=== PATIENT | female | born 1950 | race Caucasian/White ===

== ENCOUNTER 2020-12-15 | Outpatient (REF) | payer OTHER, SELFPAY | END 2020-12-15 00:01 | disposition home or self-care (01) | LOC: CF | PROVIDERS: Visit Provider Internal Medicine | DX: I25.5 Ischemic cardiomyopathy (principal); I25.10 Atherosclerotic heart disease of native coronary artery without angina pectoris; E11.8 Type 2 diabetes mellitus with unspecified complications; Z95.810 Presence of automatic (implantable) cardiac defibrillator; Z51.81 Encounter for therapeutic drug level monitoring; Z79.899 Other long term (current) drug therapy | CPT/HCPCS: 93005 ==

== ENCOUNTER → 2020-12-15 10:09 | Outpatient (BNVA) | payer OTHER, SELFPAY | PROVIDERS: PCP Hospitalist; Visit Provider Internal Medicine ==

== ENCOUNTER 2021-06-14 17:54 | Emergency (ER) | payer OTHER, SELFPAY ==
--- NOTE | 2021-06-14 | ECG_ITS ---
Test Reason : CHEST PAIN Blood Pressure : / mmHG Vent. Rate : 086 BPM Atrial Rate : 086 BPM P-R Int : 136 ms QRS Dur : 132 ms QT Int : 436 ms P-R-T Axes : 025 -62 097 degrees QTc Int : 521 ms Atrial-sensed ventricular-paced rhythm Abnormal ECG When compared with ECG of 12-MAR-2020 20:39, No significant change was found Referred By: Generic ED Physician Electronically Signed By:KIANA CANTRELL MD
--- NOTE | ~2021-06-14 | XR_ITS ---
EXAMINATION: XR CHEST CLINICAL INFORMATION: Chest pain COMPARISON: 03/12/2020 TECHNIQUE: Frontal view of the chest was obtained. FINDINGS: Heart size normal. No infiltrates, effusions or lung masses are seen. Again noted is a 3-lead left chest wall pacemaker with one lead in the atria, the other at the right ventricular apex and the third in the coronary sinus. XR/XR chest 1V IMPRESSION: No acute intrathoracic disease
[2021-06-14 18:10] VITALS: BP 110/60; BP 131/73; PULSE 84; PULSE 90; RESP 16; TEMP 37.1; O2SAT 99; BMI 33.3
--- NOTE | 2021-06-14 18:30 | ED.CHESTPAIN ---
HPI - Chest Pain General Chief Complaint: Chest Pain Stated Complaint: CHEST PAIN Time Seen by Provider: 06/14/21 18:30 Source: patient Mode of arrival: EMS Limitations: no limitations History of Present Illness HPI narrative: Patient history of ischemic cardiomyopathy, multivessel coronary disease seen in cardiac catheterization 2016, and paroxysmal AFib on Eliquis and diabetes mellitus in is status post ICD history of frequent chest pain almost every month comes from shelter for chest pain started today in the afternoon 1 PM received 5 doses of nitroglycerin with partial improvement patient feels the chest pain is squeezing digit to the back similar to that in the past lasting for 45 minutes to 1 hour. Patient looks comfortable otherwise has some cold sweats no nausea no vomiting no shortness of breath no palpitations pain is almost similar in character that but she gets almost every month. Patient also feels increased anxiety this time Related Data Home Medications Medication Instructions Recorded Confirmed lorazepam 0.5 mg tablet (Ativan) 0.5 mg PO BID PRN 08/27/20 12/15/20 melatonin 5 mg capsule mg PO 08/27/20 12/15/20 acetaminophen 650 mg 06/14/21 duloxetine 60 mg capsule,delayed 1 cap PO DAILY 06/14/21 06/14/21 release insulin glargine 80 unit SUBCUT BEDTIME 06/14/21 06/14/21 magnesium oxide 1 tab PO DAILY 06/14/21 06/14/21 pantoprazole 40 mg tablet,delayed 1 tab PO DAILY 06/14/21 06/14/21 release quetiapine 150 mg PO BEDTIME 06/14/21 06/14/21 Previous Rx's Medication Instructions Recorded blood-glucose meter #1 ea 11/04/20 pen needle, diabetic 32 gauge x #50 ea 11/10/204 (BD Ultra-Fine Micro Pen Needle) alcohol swabs (Alcohol Pads) 1 pad TOPICAL BID-TID #100 pad 03/03/21 lancets (Accu-Chek Softclix 1 ea TOPICAL BID PRN #100 ea 03/03/21 Lancets) pen needle, diabetic 32 gauge x 1 ea MISCELLANEOUS BID PRN #100 ea 03/03/21 14 (Comfort EZ Pen Pringle) atorvastatin 40 mg tablet 40 mg PO DAILY #30 tab 03/14/21 pantoprazole 20 mg tablet,delayed 20 mg PO DAILY #30 tab 03/21/21 release insulin glargine 100 unit/mL (3 80 unit SUBCUT DAILY #24 ml 04/13/21 mL) subcutaneous pen (Lantus Solostar U-100 Insulin) nitroglycerin 0.4 mg sublingual 0.4 mg SUBLINGUAL Q5M PRN 30 Days 05/05/21 tablet (Nitrostat) #10 tab clopidogrel 75 mg tablet 75 mg PO DAILY #30 tab 05/13/21 isosorbide dinitrate 30 mg tablet 60 mg PO BID #240 tab 05/13/21 magnesium oxide 400 mg (241.3 mg 400 mg PO DAILY #30 tab 05/13/21 magnesium) tablet metoprolol succinate 25 mg 12.5 mg PO DAILY #15 tab 05/13/21 tablet,extended release 24 hr torsemide 20 mg tablet 20 mg PO DAILY #30 tab 05/15/21 blood sugar diagnostic (Accu-Chek #100 ea 05/20/21 Danielle Plus test strp) apixaban 5 mg tablet (Eliquis) 5 mg PO BID 30 Days #60 tab 06/01/21 duloxetine 20 mg capsule,delayed 40 mg PO QAM #60 cap 06/01/21 release gabapentin 400 mg capsule 400 mg PO TID #90 cap 06/01/21 mirtazapine 15 mg disintegrating 15 mg PO BEDTIME 30 Days #30 tab 06/01/21 tablet quetiapine 100 mg tablet 300 mg PO BEDTIME #90 tab 06/01/21 Allergies Allergy/AdvReac Type Severity Reaction Status Date / Time Cephalosporins Allergy Intermediate RASH Verified 12/15/20 10:39 [CEPHALOSPORINS] oxycodone [From Tylox] Allergy Intermediate RASH Verified 12/15/20 10:39 Sulfa (Sulfonamide Allergy Intermediate RASH Verified 12/15/20 10:39 Antibiotics) [SULFA (SULFONAMIDE ANTIBIOTICS)] lisinopril AdvReac Severe contraindic Verified 12/15/20 10:39 ation naproxen [NAPROXEN] AdvReac Intermediate contraindic Verified 12/15/20 10:39 ation Review of Systems Review of Systems: Yes all other systems are reviewed and are negative PMFSH Past Medical History Medical History Atherosclerotic cardiovascular disease Cardiac resynchronization therapy defibrillator (ELEVATOR ATTENDANT-D) in place Type 2 diabetes mellitus with unspecified complications Surgical History History of appendectomy History of cardiac catheterization (~08/2015) History of cholecystectomy History of implantable cardioverter-defibrillator (ICD) placement (~02/09/17) History of tubal ligation History of umbilical hernia repair Family History Family History Father Myocardial infarction Mother Uterine cancer Lung cancer Maternal Aunt Uterine cancer Mouth cancer Social History Social History Smoked in Last 30 Days: No Use of substances other than those prescribed or required for medical reasons: No Advance Directives: No Advance Directives Information Provided: Yes Physical Exam Vital Signs: Vital Signs: Last Vital Signs Temp 98.4 F 06/14/21 21:56 Pulse 78 06/14/21 21:56 Resp 16 06/14/21 21:56 BP 150/75 H 06/14/21 21:56 Pulse Ox 98 06/14/21 21:56 Body Mass Index 33.3 Appearance: Alert. Oriented X3. No acute distress. Relaxed and comfortable Eyes: No pallor or icterus ENT: Pharynx normal. Oral Mucosa moist Neck: Normal inspection. Neck supple. CVS: Normal heart rate and rhythm. Pulses normal. Respiratory: No respiratory distress. Equal air entry bilateral, no wheezing/rales/rhonchi Abdomen: Soft and nontender. Bowel sounds are present, no mass palpable, Skin: Skin warm and dry. Normal skin color. Normal skin turgor. Extremities: No lower extremity edema. No calf tenderness Neuro: Oriented X 3. MDM - Chest Pain MDM Narrative Medical decision making narrative: Patient medical record from [facility] was reviewed was admitted there on 06/03 till 06/11 for chest pain with full workup was essentially negative echo showed 30-35% ejection fraction. Case discussed with cardiology Dr. Wilkinson advised to discharge patient back to shelter does not need any further evaluation delta troponin does not show any significant increase patient without any acute ischemic changes in the cardiogram with atypical pain reproducible and nonexertional Medical Records Data Attestation: I reviewed the patient's medical records. Lab Data Result diagrams: 06/14/21 20:18 06/14/21 20:18 Labs: Lab Results 06/14/21 06/14/21 06/14/21 Range/Units 20:02 20:18 20:18 WBC 19.6 H (4.8-10.8) X10*3/uL RBC 4.87 (4.20-5.50) X10*6/uL Hgb 14.5 (12.0-16.0) g/dl Hct 42.1 (37-47) % MCV 86.4 (80-98) fL MCH 29.8 (27.0-33.0) pg MCHC 34.4 (31.0-35.0) g/dl RDW 13.6 (11.0-16.0) % Plt Count 351 (160-400) X10*3/uL MPV 9.8 (9.4-12.3) fL Immature Gran % (Auto) 0.7 H (0.0-0.4) % Neut % (Auto) 69.0 (45-73) % Lymph % (Auto) 20.1 (20-40) % [facility] % (Auto) 8.5 (2-11) % Eos % (Auto) 1.3 (0-4) % Baso % (Auto) 0.4 (0-2) % Lymph # (Auto) 4.0 (1.2-4.9) X10*3/uL [facility] # (Auto) 1.7 H (0.1-1.2) X10*3/uL Eos # (Auto) 0.3 (0.0-0.4) X10*3/uL Baso # (Auto) 0.1 (0.0-0.2) X10*3/uL Abs Immat Gran (auto) 0.14 H (0.00-0.03) X10*3/uL Absolute Neuts (auto) 13.5 H (2.0-8.3) X10*3/uL Absolute Nucleated RBC 0.000 (0.0-0.012) X10*3/uL Nucleated RBC % (auto) 0.0 (0.0-0.2) /100WBC Smear Tech's Comments VERIFIED PT 20.6 H (9.9-13.0) SEC INR 1.8 H (0.9-1.1) Sodium (135-145) mmol/L Potassium (3.3-5.1) mmol/L Chloride (96-108) mmol/L Carbon Dioxide (22-29) mmol/L Anion Gap (12-20) BUN (9-16) mg/dL Creatinine (0.5-1.4) mg/dL Estim Creat Clear Calc Estimated GFR Random Glucose (60-115) mg/dL Calcium (8.4-10.2) mg/dL Troponin I High Sens (<3.5-17.0) ng/L B-Natriuretic Peptide (<100) pg/mL COVID-19 (LINA) Negative (Negative) COVID-19 Clin Com See Note 06/14/21 06/14/21 06/14/21 Range/Units 20:18 20:18 21:58 WBC (4.8-10.8) X10*3/uL RBC (4.20-5.50) X10*6/uL Hgb (12.0-16.0) g/dl Hct (37-47) % MCV (80-98) fL MCH (27.0-33.0) pg MCHC (31.0-35.0) g/dl RDW (11.0-16.0) % Plt Count (160-400) X10*3/uL MPV (9.4-12.3) fL Immature Gran % (Auto) (0.0-0.4) % Neut % (Auto) (45-73) % Lymph % (Auto) (20-40) % [facility] % (Auto) (2-11) % Eos % (Auto) (0-4) % Baso % (Auto) (0-2) % Lymph # (Auto) (1.2-4.9) X10*3/uL [facility] # (Auto) (0.1-1.2) X10*3/uL Eos # (Auto) (0.0-0.4) X10*3/uL Baso # (Auto) (0.0-0.2) X10*3/uL Abs Immat Gran (auto) (0.00-0.03) X10*3/uL Absolute Neuts (auto) (2.0-8.3) X10*3/uL Absolute Nucleated RBC (0.0-0.012) X10*3/uL Nucleated RBC % (auto) (0.0-0.2) /100WBC Smear Tech's Comments PT (9.9-13.0) SEC INR (0.9-1.1) Sodium 138 (135-145) mmol/L Potassium 3.4 (3.3-5.1) mmol/L Chloride 99 (96-108) mmol/L Carbon Dioxide 25 (22-29) mmol/L Anion Gap 17 (12-20) BUN 31 H (9-16) mg/dL Creatinine 1.33 (0.5-1.4) mg/dL Estim Creat Clear Calc 40.7 Estimated GFR 39 Random Glucose 104 (60-115) mg/dL Calcium 10.0 (8.4-10.2) mg/dL Troponin I High Sens 44.7 H* 42.4 H* (<3.5-17.0) ng/L B-Natriuretic Peptide 87 (<100) pg/mL COVID-19 (LINA) (Negative) COVID-19 Clin Com ECG Data ECG #1: Attestation: I personally reviewed and interpreted this ECG as follows: Interpretation: Atrial sensed ventricular paced rhythm heart rate 86 beats per minute no acute ST T wave changes no acute ischemia Discharge Plan Discharge Clinical Impression: Chest pain Qualifiers: Chest pain type: precordial pain Qualified Code(s): R07.2 - Precordial pain Patient Disposition: Xfer SNF Transfer Details: Atypical chest pain continue medication as before Instructions: Chest Pain (ED) Additional Instructions: Continue medication as before and follow with cardiology Prescriptions: No Action (DME) blood-glucose meter Kit See Rx Instructions .ROUTE .MEDSUPPLY Qty: 1 RF: 0 (DME) pen needle, diabetic [BD Ultra-Fine Micro Pen Needle] 32 gauge x 1/4 needle See Rx Instructions .ROUTE .MEDSUPPLY Qty: 50 RF: 0 alcohol swabs [Alcohol Pads] Pads, Medicated 1 pad topical BID-TID Qty: 100 RF: 3 pen needle, diabetic [Comfort EZ Pen Pringle] 32 gauge x 1/4 needle 1 ea miscellaneous BID PRN (Reason: dm) Qty: 100 RF: 3 lancets [Accu-Chek Softclix Lancets] Misc 1 ea topical BID PRN (Reason: for diabetes mellitus) Qty: 100 RF: 3 atorvastatin 40 mg tablet 40 mg PO DAILY Qty: 30 RF: 11 pantoprazole 20 mg tablet,delayed release (DR/EC) 20 mg PO DAILY Qty: 30 RF: 3 Lant Solostar U-100 Insulin 100 unit/mL (3 mL) insulin pen 80 unit subcut DAILY Qty: 24 RF: 2 nitroglycerin [Nitrostat] 0.4 mg tablet, sublingual 0.4 mg sublingual Q5M PRN (Reason: chest pain) 30 Days Qty: 10 RF: 1 isosorbide dinitrate 30 mg tablet 60 mg PO BID Qty: 240 RF: 5 magnesium oxide 400 mg (241.3 mg magnesium) tablet 400 mg PO DAILY Qty: 30 RF: 5 clopidogrel 75 mg tablet 75 mg PO DAILY Qty: 30 RF: 5 metoprolol succinate 25 mg tablet extended release 24 hr 12.5 mg PO DAILY Qty: 15 RF: 5 torsemide 20 mg tablet 20 mg PO DAILY Qty: 30 RF: 1 (DME) Accu-Chek Danielle Plus test strp Strip See Rx Instructions .Route Qty: 100 RF: 3 quetiapine 100 mg tablet 300 mg PO BEDTIME Qty: 90 RF: 3 duloxetine 20 mg capsule,delayed release(DR/EC) 40 mg PO QAM Qty: 60 RF: 2 Eliquis 5 mg tablet 5 mg PO BID 30 Days Qty: 60 RF: 3 mirtazapine 15 mg tablet,disintegrating 15 mg PO BEDTIME 30 Days Qty: 30 RF: 2 gabapentin 400 mg capsule 400 mg PO TID Qty: 90 RF: 6 acetaminophen 650 mg RF: 0 magnesium oxide 400 mg magnesium tablet 1 tab PO DAILY RF: 0 insulin glargine 80 unit subcut BEDTIME RF: 0 pantoprazole 40 mg tablet,delayed release (DR/EC) 1 tab PO DAILY RF: 0 duloxetine 60 mg capsule,delayed release(DR/EC) 1 cap PO DAILY RF: 0 quetiapine 150 mg PO BEDTIME RF: 0 lorazepam [Ativan] 0.5 mg tablet 0.5 mg PO BID PRNRF: 0 melatonin 5 mg capsule PO RF: 0
[2021-06-14] MEDS: Nitroglycerin 2 % Oint 1 GM Packet 1 INCH TRANSDERMA (19:47)
[2021-06-14 20:07] VITALS: BP 132/63; PULSE 83; RESP 14
[2021-06-14 20:26] LABS: Basophils Absolute Auto 0.1 X10*3/uL (0.0-0.2); Basophils Percent Auto 0.4 % (0-2); Eosinophils Absolute Auto 0.3 X10*3/uL (0.0-0.4); Eosinophils Percent Auto 1.3 % (0-4); Hematocrit 42.1 % (37-47); Hemoglobin 14.5 g/dl (12.0-16.0); Imm Gran Abs Auto 0.14 X10*3/uL (0.00-0.03); Imm Gran Pct Auto 0.7 % (0.0-0.4); Lymphocytes Percent Auto 20.1 % (20-40); MANUAL DIFF FLAG SCAN; Mean Corpuscular HGB Conc 34.4 g/dl (31.0-35.0); Mean Corpuscular Hemoglobin 29.8 pg (27.0-33.0); Mean Corpuscular Volume 86.4 fL (80-98); Mean Platelet Volume 9.8 fL (9.4-12.3); Monocytes Absolute Auto 1.7 X10*3/uL (0.1-1.2); Monocytes Percent Auto 8.5 % (2-11); Neutrophils Absolute Auto 13.5 X10*3/uL (2.0-8.3); Platelet Count 351 X10*3/uL (160-400); Red Blood Count 4.87 X10*6/uL (4.20-5.50); Red Cell Distribution Width 13.6 % (11.0-16.0); SCAN SMEAR FLAG 1; White Blood Count 19.6 X10*3/uL (4.8-10.8)
[2021-06-14 20:29] LABS: COVID-19 Test Negative (Negative)
[2021-06-14 20:31] LABS: INTERNATIONAL NORM RATIO 1.8 (0.9-1.1); Prothrombin Time 20.6 SEC (9.9-13.0)
[2021-06-14 20:42] LABS: Anion Gap 17 (12-20); Blood Urea Nitrogen 31 mg/dL (9-16); Carbon Dioxide 25 mmol/L (22-29); Chloride 99 mmol/L (96-108); Creatinine Clr Calc Pharmacy 40.7; Estimated Glomerular Filt Rate 39; Glucose Random 104 mg/dL (60-115); Potassium 3.4 mmol/L (3.3-5.1); Sodium 138 mmol/L (135-145)
[2021-06-14 20:51] LABS: SLIDE REVIEW VERIFIED
[2021-06-14 20:52] LABS: B Type Natriuretic Peptide 87 pg/mL (<100); Troponin-I High Sensitivity 44.7 ng/L (<3.5-17.0)
[2021-06-14] MEDS: ondansetron HCL 4 MG/2 ML VIAL IVPUSH (21:00)
--- NOTE | 2021-06-14 21:02 | PC.NURSE ---
PT A&O, NO SOB, BUT DOES REPORT SOME CHEST DISCOMFORT. NITRO PASTE ON AND MEDICATED PER OCT. 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 PT OOB TO BEDSIDE COMMODE WITH ASSIST. WILL CONTINUE TO MONITOR. CALL EL AT THE BEDSIDE.
[2021-06-14 21:56] VITALS: BP 150/75; PULSE 78; RESP 16; TEMP 36.9; O2SAT 98
[2021-06-14] MEDS: Morphine Sulfate 4 MG/ML CARTRIDGE IVPUSH (22:02)
[2021-06-14 22:38] LABS: Troponin-I High Sensitivity 42.4 ng/L (<3.5-17.0)
--- NOTE | 2021-06-14 23:11 | PC.NURSE ---
Several call to facility to update staff, no answer.
--- NOTE | 2021-06-14 23:20 | PC.NURSE ---
Pt is resting in bed no sign of distress at this time. plan is for pt to be discharge back to facility
[2021-06-15 00:28] VITALS: PULSE 78; RESP 12
== END 2021-06-15 00:39 | disposition skilled nursing facility (03) ==
PROVIDERS: Emergency Provider Internal Medicine; PCP Hospitalist
DX: R07.89 Other chest pain (principal); R06.02 Shortness of breath; Z20.822 Contact with and (suspected) exposure to COVID-19; Z79.899 Other long term (current) drug therapy; Z79.01 Long term (current) use of anticoagulants
CPT/HCPCS: 36415; 71045; 80048; 83880; 84484; 85025; 85610; 87635; 93005; 96374; 96375; 99284; 99285; J2270; J2405

== ENCOUNTER 2021-11-12 09:13 | Outpatient (REF) | payer OTHER, SELFPAY ==
[2021-11-12 11:20] LABS: Hematocrit 37.8 % (37.0-47.0); Hemoglobin 11.4 g/dl (12.0-16.0); Mean Corpuscular HGB Conc 30.2 g/dl (31.0-35.0); Mean Corpuscular Hemoglobin 26.9 pg (27.0-33.0); Mean Corpuscular Volume 89.2 fL (80.0-98.0); Mean Platelet Volume 11.3 fL (9.4-12.3); Platelet Count 193 X10*3/uL (160-400); Red Blood Count 4.24 X10*6/uL (4.20-5.50); Red Cell Distribution Width 15.9 % (11.0-16.0); White Blood Count 8.5 X10*3/uL (4.8-10.8)
[2021-11-12 11:51] LABS: Alanine Aminotransferase 10 U/L (0-31); Albumin Level 3.9 g/dL (3.5-5.0); Alkaline Phosphatase 144 U/L (39-117); Anion Gap 14 (12-20); Aspartate Amino Transferase 14 U/L (5-31); Bilirubin Total 0.4 mg/dL (0.0-1.0); Blood Urea Nitrogen 16 mg/dL (9-16); Calcium 9.8 mg/dL (8.4-10.2); Carbon Dioxide 27 mmol/L (22-29); Chloride 104 mmol/L (96-108); Cholesterol 198 mg/dL; Estimated Glomerular Filt Rate 46; Glucose Fasting 210 mg/dL (60-99); HDL Cholesterol 47 mg/dL; LDL Cholesterol Calculated 126 mg/dl; Potassium 4.3 mmol/L (3.3-5.1); Sodium 141 mmol/L (135-145); Total Protein 6.6 g/dL (6.5-8.0); Triglycerides 127 mg/dL
[2021-11-12 11:56] LABS: TSH reflex Free T4 0.94 uIU/mL (0.32-4.0)
== END 2021-11-12 09:14 | disposition home or self-care (01) ==
LOC: HO.WFDLDS 09:13
PROVIDERS: Visit Provider Hospitalist
DX: I25.10 Atherosclerotic heart disease of native coronary artery without angina pectoris (principal); E66.8 Other obesity; I25.5 Ischemic cardiomyopathy; I50.9 Heart failure, unspecified; E11.65 Type 2 diabetes mellitus with hyperglycemia
CPT/HCPCS: 36415; 80053; 80061; 84443; 85027

== ENCOUNTER 2023-03-23 14:58 | Outpatient (AMB) | payer OTHER, SELFPAY ==
--- NOTE | 2023-03-23 14:59 | A.OFFPC_ITS ---
Vital Signs 03/23/23 15:19 Height 5 ft 3 in Weight 200 lb BMI 35.4 BP 106/64 Blood Pressure Location Lt brachial Position Sitting Pulse 68 Pulse Source Pulse Oximeter Pulse Oximetry (%) 97 Intake Visit Reasons: [facility] 03/10/23 - Chest pain Intake Note: pt is here for ED f/u 03/10/23 for chest pain Resource Specialist Required: No Accompanied by: Unknown Allergies Cephalosporins [CEPHALOSPORINS] Allergy (Intermediate, Verified 03/23/23 15:19) RASH oxycodone [From Tylox] Allergy (Intermediate, Verified 03/23/23 15:19) RASH Sulfa (Sulfonamide Antibiotics) [SULFA (SULFONAMIDE ANTIBIOTICS)] Allergy (Intermediate, Verified 03/23/23 15:19) RASH lisinopril Adverse Reaction (Severe, Verified 03/23/23 15:19) contraindication naproxen [NAPROXEN] Adverse Reaction (Intermediate, Verified 03/23/23 15:19) contraindication Medication List - Last Reconciled 03/23/23 by Kaz Baum CNP acetaminophen 325 mg PO QID PRN apixaban (Eliquis) 5 mg PO BID atorvastatin 80 mg PO DAILY clopidogrel 75 mg PO DAILY duloxetine 40 mg (2 x 20 mg) PO QAM ferrous fumarate 325 mg PO DAILY furosemide (Lasix) 20 mg PO DAILY gabapentin 200 mg PO TID insulin glargine (Lantus Solostar U-100 Insulin) 20 units subcut DAILY melatonin 5 mg PO BEDTIME PRN metoprolol succinate ER 50 mg PO DAILY mirtazapine 15 mg PO BEDTIME mirtazapine 15 mg PO DAILY uuvioqns-azqn-LB-calcium-mins 9 mg iron-400 mcg (Thera-M) 1 tab PO DAILY nitroglycerin (Nitrostat) 0.4 mg sublingual Q5M PRN 1 month pantoprazole 40 mg PO DAILY quetiapine 300 mg (3 x 100 mg) PO BEDTIME sennosides-docusate sodium 8.6-50 mg (Senexon-S) 1 tab-cap PO BEDTIME valsartan 40 mg PO DAILY Tobacco use date assessed: 03/23/23 Fall risk assessment: 2 + Falls in past year Last assessed Fall Risk: 03/23/23 Dental Screening Dental Screen Date: 03/23/23 Did you have a dental visit in the last 12 months?: Yes Did you have a dental problem in the last 6 months where you did not have access to dental care?: No Was dental information given to patient?: Patient has dentist HPI HPI Comments History of Present Illness Details 72-year-old female, accompanied by [facility] STYLIST APPRENTICE/manager 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 She was evaluated and treated for chest pain at [facility] ED on 03/10/2023. She reports intermittent chest pain especially at night and with exertion. She states that the pain is usually localized to her sternum. She states she gets winded with climbing stairs. She also reports intermittent ringing of the left ear for the past 6 months. No ear pain or loss of hearing. She notes she takes nitro as prescribed. According to [facility] STYLIST APPRENTICE/manager product, the patient joined the facility following recent ED discharge. [facility] Medical History Atherosclerotic cardiovascular disease Cardiac resynchronization therapy defibrillator (DESTATICIZER FEEDER-D) in place Type 2 diabetes mellitus with unspecified complications Surgical History History of appendectomy History of cardiac catheterization (~08/2015) History of cholecystectomy History of implantable cardioverter-defibrillator (ICD) placement (~02/09/17) History of tubal ligation History of umbilical hernia repair Family History Father Myocardial infarction Mother Uterine cancer Lung cancer Maternal Aunt Uterine cancer Mouth cancer Social History Housing: House Patient Tobacco Use Status: Never used Tobacco e-Cigarette/Vaping Use: Never Used service: No Current occupational status: retired Current occupational exposures/hazards: No Cognitive needs: Yes Hearing needs: No Vision needs: Yes Questionnaire Thrive Questionnaire Date Thrive assessed: 03/09/22 DYLON-7 AMB Questionnaire DYLON-7 Date DYLON - 7 assessed: 03/09/22 Source: Developed by Drs. Wicho Tucker, Sana Mendoza, Ta Moctezuma and colleagues, with an educational thai from [employer]. Review of Systems Const Details: Const Denies chills, Denies fatigue, Denies fever(s), Denies headache(s) and Denies weakness ENT Reports as per HPI Card Denies chest pain, Denies lightheadedness, Denies dyspnea and Denies other (Palpitations) Resp Denies cough, Denies dyspnea, Denies wheezing and Denies other ( shortness of breath) GI Denies abdominal pain, Denies melena, Denies hematochezia, Denies change in bowel habits, Denies dyspepsia and Denies nausea Denies hematuria and Denies dysuria Musc Denies abnormal gait, Denies myalgias, Denies arthralgias, Denies numbness and Denies tingling Skin/Breast Denies rash, Denies unusual bruising and Denies wounds Neuro Denies abnormal gait, Denies dizziness, Denies headache(s), Denies memory loss, Denies numbness, Denies Sensory deficit (Neuro), Denies tingling and Denies weakness Psych Denies anxiety and Denies depression Endo Denies fatigue Aller/Immun Denies wheezing Physical exam (Primary Care) Vital Signs: Last Vital Signs Pulse 68 03/23/23 15:19 BP 106/64 03/23/23 15:19 Pulse Ox 97 03/23/23 15:19 BMI result Body Mass Index 35.4 Tobacco/Smoking Status: Tobacco use Status Tobacco use date assessed 03/23/23 03/23/23 15:01 Patient Tobacco Use Status Never used Tobacco 03/23/23 15:01 e-Cigarette/Vaping Use Never Used 03/23/23 15:01 Thrive Assessment: Date of Thrive Assessment Date Thrive assessed 03/09/22 03/23/23 15:01 Const Other: General: no acute distress and well developed Nutritional Appearance: well nourished Orientation/consciousness: patient oriented x3 HENMT Head is normocephalic Impacted cerumen left ear occluding the left TM, no signs of infection. Right ear canal and TM is normal. Nasal turbinates and oropharynx are pink and moist Sinuses are nontender with palpation No auricular or cervical lymphadenopathy Eyes General: appearance normal, both eyes and all related structures Pupils: Equal, round and reactive pupils present EOM: EOMs intact bilaterally Resp Effort & Inspection: normal respiratory effort Auscultation: clear to auscultation bilaterally Cardio Rate: regular rate Rhythm: regular rhythm Heart sounds: S1 normal heart sound present, S2 normal heart sound present, no gallops, no murmurs and no rubs GI Palpation (GI): No Abdominal aortic bruit present, Soft to palpation, nontender, No hepatosplenomegaly present and No Rebound tenderness present Auscultation: normal bowel sounds General: Yes no CVA tenderness Back/Spine/Pelvis Back: no CVA tenderness Cervical Spine: cervical ROM normal and No Cervical spine tenderness Thoracic/Lumbar Spine: thoraco-lumbar ROM normal, No pain with thoraco-lumbar ROM, No thoracic spinal tenderness and No lumbar spinal tenderness Extrem General: Yes normal to inspection, No edema and No calf tenderness Skin General: warm and dry. Normal skin color. Normal skin turgor Lesions: no lesions Rashes: no rashes Trauma: no lacerations or abrasions Wounds: no wounds Nails: normal Neuro General: patient oriented x3, gait normal and no focal neuro deficit Cranial nerves: Yes Equal, round and reactive pupils present Cognition (Neuro): normal cognition Gait exam (Neuro): Normal gait present Sensory Exam: No Sensory deficit (Neuro) Psych Affect: normal affect Assessment and Plan Assessment & Plan (1) Hospital discharge follow-up: Code(s): Z09 - Encounter for follow-up examination after completed treatment for co nditions other than malignant neoplasm Plan: She reports intermittent chest pain especially at night and with exertion. She states that the pain is usually localized to her sternum. She states she gets winded with climbing stairs. No acute symptoms at this time Take nitro as prescribed Continue to take all medications as prescribed Follow-up in 1 month for chronic health issues Return sooner with worsening or new symptoms Verbalized understanding and agreed with treatment plan. (2) Impacted cerumen, left ear: Code(s): H61.22 - Impacted cerumen, left ear Plan: She also reports intermittent ringing of the left ear for the past 6 months. No ear pain or loss of hearing. Impacted cerumen left ear occluding the left TM, no signs of infection Debrox ordered. Use as prescribed Follow-up with worsening or new symptoms Verbalized understanding and agreed with treatment plan. Medications: New carbamide peroxide 6.5% (Debrox) 5 drps otic (ear) left DAILY 4 days 15 mL 0RF Changed From atorvastatin 40 mg PO DAILY 30 tabs 11RF To atorvastatin 80 mg PO DAILY From metoprolol succinate ER 12.5 mg (1/2 x 25 mg) PO DAILY 15 tabs 0RF To metoprolol succinate ER 50 mg PO DAILY From pantoprazole 20 mg PO DAILY 30 tabs 0RF To pantoprazole 40 mg PO DAILY From insulin glargine (Lantus Solostar U-100 Insulin) 80 units (0.8 mL) subcut DAILY 24 mL 5RF E11.65 - Type 2 diabetes mellitus with hyperglycemia To insulin glargine (Lantus Solostar U-100 Insulin) 20 units subcut DAILY E11.65 - Type 2 diabetes mellitus with hyperglycemia Coding Level of Care Code Est Pt Level 3 (23711) Diagnoses Hospital discharge follow-up Z09 Impacted cerumen, left ear H61.22 Time Spent (min) 25
[2023-03-23 15:19] VITALS: BP 106/64; PULSE 68; O2SAT 97; BMI 35.4
== END 2023-03-23 15:43 | disposition home or self-care (01) ==
PROVIDERS: PCP Hospitalist; Visit Provider Nurse Practitioner Family
DX: Z09 Encounter for follow-up examination after completed treatment for conditions other than malignant neoplasm (principal); H61.22 Impacted cerumen, left ear
CPT/HCPCS: 99213

== ENCOUNTER 2023-05-10 15:27 | Outpatient (AMB) | payer OTHER, SELFPAY ==
[2023-05-10 15:26] VITALS: BP 126/64; PULSE 101; RESP 12; TEMP 36.6; O2SAT 99; BMI 34.8
--- NOTE | 2023-05-10 15:26 | MHC.PC.OV ---
Vital Signs 05/10/23 15:26 Height 5 ft 3 in Weight 196 lb 7 oz BMI 34.8 BP 126/64 Blood Pressure Location Rt brachial Position Sitting Respiration 12 Pulse 101 H Pulse Source Pulse Oximeter Temp 97.9 F Temp Source Temporal Artery Scan Pulse Oximetry (%) 99 Oxygen Delivery Method Room Air Intake [place] [facility] [place] chest pain and anemia Intake Note: Patient would like a new glucometer kit. Patient is also wondering about status of her seraquel. Community Midwife Required: No Accompanied by: Card Stripper Allergies Cephalosporins [CEPHALOSPORINS] Allergy (Intermediate, Verified 05/10/23 15:34) RASH oxycodone [From Tylox] Allergy (Intermediate, Verified 05/10/23 15:34) RASH Sulfa (Sulfonamide Antibiotics) [SULFA (SULFONAMIDE ANTIBIOTICS)] Allergy (Intermediate, Verified 05/10/23 15:34) RASH lisinopril Adverse Reaction (Severe, Verified 05/10/23 15:34) contraindication sulfamethoxazole [From Bactrim] Adverse Reaction (Severe, Verified 05/10/23 15:34) Rash trimethoprim [From Bactrim] Adverse Reaction (Severe, Verified 05/10/23 15:34) Rash naproxen [NAPROXEN] Adverse Reaction (Intermediate, Verified 05/10/23 15:34) contraindication Tobacco use date assessed: 03/23/23 Fall risk assessment: 2 + Falls in past year Last assessed Fall Risk: 05/10/23 Dental Screening Dental Screen Date: 05/10/23 Did you have a dental visit in the last 12 months?: No Did you have a dental problem in the last 6 months where you did not have access to dental care?: No Was dental information given to patient?: Yes HPI HPI Comments History of Present Illness Details 72-year-old female, accompanied by care home [employer]/supplier development manager, presents for a follow-up visit. She was admitted at [facility] between 04/12/2023 and 04/13/2023 for chest pain and symptomatic anemia, hematochezia s/p blood transfusion. Her hemoglobin was 5.8 s/p 2PRBC transfusions. Hemoglobin post transfusion was stable above 7g/dl. S/p colonoscopy on 04/14, is polyp 5 mm in the ascending colon (polypectomy). Polyp 4 mm in the sigmoid colon (polypectomy). Hypertrophied anal papillae in the anus, biopsy was done. Internal hemorrhoids. Colon otherwise normal to terminal ileum including retroflexion. Recommendations; patient without any blood colon, or terminal ileum. Patient's bleeding could have been hemorrhoidal. Resume anticoagulation, resume diet. If patient rebleeds, please contact GI for consideration of video capsule endoscopy. She was discharged with oral PPI, monitor H&H and transfuse if less than 7g/dl. Hemoglobin A1c was 6.8 %. During this hospitalization, patient also had an endoscopy done. Normal liver. The left kidney was normal. Multiseptated cyst (2.19 cm X to the pancreas, with 2 large cystic component. Dose to prominent cysts were aspirated; bloody thin fluid was aspirated until the cyst collapsed. Another small size 2 mm was noted in the body of the pancreas. Otherwise no abnormalities were noted in the pancreas. The PD appeared normal (0.9 mm in BOP). The CBD appeared dilated 9 mm likely due to cholecystectomy. She has significant her past medical history significant for hypertension, hyperlipidemia, type 2 diabetes, CKD 3, history of paroxysmal AFib, history of pulmonary embolism, CAD status post drug eluding-stents to the RCA (2005) with restenosis (2013), HFrEF with EF 20 to 30%, and anxiety. She notes that her chest pain and tinnitus have completely resolved. She offers no complaints and denies acute symptoms. She notes she has been on Quetiapine 300 mg for a the past 2 years; she requests a refill for this. She also requests a new glucometer order, she notes she lost her old glucometer when she relocated to the care home 2 months ago. [facility] Medical History Anemia Type 2 diabetes mellitus with unspecified complications Atherosclerotic cardiovascular disease Cardiac resynchronization therapy defibrillator (GEOCHEMIST-D) in place Surgical History History of colonoscopy H/O endoscopy History of implantable cardioverter-defibrillator (ICD) placement (~02/09/17) History of cardiac catheterization (~08/2015) History of umbilical hernia repair History of appendectomy History of cholecystectomy History of tubal ligation Family History Father Myocardial infarction Mother Uterine cancer Lung cancer Maternal Aunt Uterine cancer Mouth cancer Social History Housing: House Patient Tobacco Use Status: Never used Tobacco e-Cigarette/Vaping Use: Never Used service: No Current occupational status: retired Current occupational exposures/hazards: No Cognitive needs: Yes Hearing needs: No Vision needs: Yes Questionnaire Thrive Questionnaire Date Thrive assessed: 03/09/22 DYLON-7 AMB Questionnaire DYLON-7 Date DYLON - 7 assessed: 03/09/22 Source: Developed by Drs. Wicho Tucker, Sana Mendoza, Ta Moctezuma and colleagues, with an educational thai from [employer]. Review of Systems Const Details: Const Denies chills, Denies fatigue, Denies fever(s), Denies headache(s) and Denies weakness ENT Denies dizziness and Denies headache(s) Card Denies chest pain, Denies lightheadedness, Denies dyspnea and Denies other (Palpitations) Resp Denies cough, Denies dyspnea, Denies wheezing and Denies other ( shortness of breath) GI Denies abdominal pain, Denies melena, Denies hematochezia, Denies change in bowel habits, Denies dyspepsia and Denies nausea Denies hematuria and Denies dysuria Musc Denies abnormal gait, Denies myalgias, Denies arthralgias, Denies numbness and Denies tingling Skin/Breast Denies rash, Denies unusual bruising and Denies wounds Neuro Denies abnormal gait, Denies dizziness, Denies headache(s), Denies memory loss, Denies numbness, Denies Sensory deficit (Neuro), Denies tingling and Denies weakness Psych Denies anxiety, Denies depression, Denies memory loss Endo Denies cold intolerance, Denies fatigue, Denies heat intolerance, Denies polydipsia and Denies polyuria Aller/Immun Denies wheezing Physical exam (Primary Care) Vital Signs: Last Vital Signs Temp 97.9 F 05/10/23 15:26 Pulse 101 H 05/10/23 15:26 Resp 12 05/10/23 15:26 BP 126/64 05/10/23 15:26 Pulse Ox 99 05/10/23 15:26 Oxygen Delivery Method Room Air 05/10/23 15:26 BMI result Body Mass Index 34.8 Tobacco/Smoking Status: Tobacco use Status Tobacco use date assessed 03/23/23 05/10/23 15:37 Patient Tobacco Use Status Never used Tobacco 05/10/23 15:37 e-Cigarette/Vaping Use Never Used 05/10/23 15:37 Thrive Assessment: Date of Thrive Assessment Date Thrive assessed 03/09/22 05/10/23 15:37 Const Other: General: no acute distress and well developed Nutritional Appearance: well nourished Orientation/consciousness: patient oriented x3 HENMT Head: Yes normocephalic and Yes atraumatic Eyes General: appearance normal, both eyes and all related structures Pupils: Equal, round and reactive pupils present EOM: EOMs intact bilaterally Resp Effort & Inspection: normal respiratory effort Auscultation: clear to auscultation bilaterally Cardio Rate: regular rate Rhythm: regular rhythm Heart sounds: S1 normal heart sound present, S2 normal heart sound present, no gallops, no murmurs and no rubs GI Palpation (GI): No Abdominal aortic bruit present, Soft to palpation, nontender, No hepatosplenomegaly present and No Rebound tenderness present Auscultation: normal bowel sounds General: Yes no CVA tenderness Back/Spine/Pelvis Back: no CVA tenderness Cervical Spine: cervical ROM normal and No Cervical spine tenderness Thoracic/Lumbar Spine: thoraco-lumbar ROM normal, No pain with thoraco-lumbar ROM, No thoracic spinal tenderness and No lumbar spinal tenderness Extrem General: Yes normal to inspection, No edema and No calf tenderness Skin General: warm and dry. Normal skin color. Normal skin turgor Lesions: no lesions Rashes: no rashes Trauma: no lacerations or abrasions Wounds: no wounds Nails: normal Neuro General: patient oriented x3, gait normal and no focal neuro deficit Cranial nerves: Yes Equal, round and reactive pupils present Cognition (Neuro): normal cognition Gait exam (Neuro): Normal gait present Sensory Exam: No Sensory deficit (Neuro) Psych Appearance: grossly normal Affect: normal affect Attitude: cooperative Thought process: Normal thought process present Assessment and Plan Assessment & Plan (1) Hospital discharge follow-up: Code(s): Z09 - Encounter for follow-up examination after completed treatment for conditions other than malignant neoplasm Plan: Patient is currently stable. No acute symptoms at this time Seroquel refilled as requested New glucometer, strips, and lancets ordered. Advised to monitor blood glucose 3 times a day Advised to continue with current treatment regimen Follow-up with Dr. García in 1-2 months for chronic disease management Return sooner with symptoms or concerns such as fatigue or weakness so that labs can be ordered Verbalized understanding and agreed with treatment plan. Medications: New quetiapine 300 mg (3 x 100 mg) PO BEDTIME 90 days 270 tabs 0RF blood-glucose meter (FreeStyle Lite Meter kit) As directed 1 ea 0RF blood sugar diagnostic (FreeStyle Lite Strips) As directed TID 100 ea 4RF lancets (FreeStyle Lancets) As directed 100 ea 4RF Coding Level of Care Code Est Pt Level 3 (55615) Diagnoses Hospital discharge follow-up Z09
== END 2023-05-10 16:27 | disposition home or self-care (01) ==
PROVIDERS: PCP Hospitalist; Visit Provider Nurse Practitioner Family
DX: Z09 Encounter for follow-up examination after completed treatment for conditions other than malignant neoplasm (principal)
CPT/HCPCS: 99213

== ENCOUNTER 2023-05-26 11:04 | Outpatient (AMB) | payer OTHER, SELFPAY ==
[2023-05-26 11:12] VITALS: BP 120/74; PULSE 70; O2SAT 99; BMI 35.8
--- NOTE | 2023-05-26 11:12 | MHC.PC.OV ---
Vital Signs 05/26/23 11:12 Height 5 ft 3 in Weight 202 lb 3 oz BMI 35.8 BP 120/74 Blood Pressure Location Lt brachial Position Sitting Pulse 70 Pulse Source Pulse Oximeter Pulse Oximetry (%) 99 Oxygen Delivery Method Room Air Intake Visit Reasons: 05/17-05/19 [facility] High Blood Sugar Intake Note: Patient is here for follow up on high blood sugars. Allergies Cephalosporins [CEPHALOSPORINS] Allergy (Intermediate, Verified 05/26/23 11:14) RASH oxycodone [From Tylox] Allergy (Intermediate, Verified 05/26/23 11:14) RASH Sulfa (Sulfonamide Antibiotics) [SULFA (SULFONAMIDE ANTIBIOTICS)] Allergy (Intermediate, Verified 05/26/23 11:14) RASH lisinopril Adverse Reaction (Severe, Verified 05/26/23 11:14) contraindication sulfamethoxazole [From Bactrim] Adverse Reaction (Severe, Verified 05/26/23 11:14) Rash trimethoprim [From Bactrim] Adverse Reaction (Severe, Verified 05/26/23 11:14) Rash naproxen [NAPROXEN] Adverse Reaction (Intermediate, Verified 05/26/23 11:14) contraindication Medication List - Last Reconciled 05/26/23 by Monroe García MD acetaminophen 325 mg PO QID PRN apixaban (Eliquis) 5 mg PO BID 30 days atorvastatin 80 mg (2 x 40 mg) PO DAILY 30 days blood sugar diagnostic (FreeStyle Lite Strips) As directed TID blood-glucose meter (FreeStyle Lite Meter kit) As directed clopidogrel 75 mg PO DAILY 30 days duloxetine 40 mg (2 x 20 mg) PO QAM ferrous fumarate 325 mg PO DAILY 30 days fluconazole (Diflucan) 150 mg PO Q3D 2 doses furosemide (Lasix) 20 mg PO DAILY gabapentin 200 mg (2 x 100 mg) PO TID 30 days insulin glargine (Lantus Solostar U-100 Insulin) 35 units (0.35 mL) subcut DAILY 30 days insulin lispro (Humalog KwikPen (U-100) Insulin) 1 sliding scale dose subcut USEASDIRECTD 30 days lancets (FreeStyle Lancets) As directed melatonin 5 mg PO BEDTIME PRN 30 days metoprolol succinate ER 50 mg (2 x 25 mg) PO DAILY 30 days mirtazapine 15 mg PO BEDTIME 30 days dtksqyqq-acor-SE-calcium-mins 9 mg iron-400 mcg (Thera-M) 1 tab PO DAILY 30 days nitroglycerin (Nitrostat) 0.4 mg sublingual Q5M PRN 1 month pantoprazole 40 mg (2 x 20 mg) PO DAILY 30 days quetiapine 300 mg (3 x 100 mg) PO BEDTIME 90 days sennosides-docusate sodium 8.6-50 mg (Senexon-S) 1 tab-cap PO BEDTIME valsartan 40 mg PO DAILY 30 days Tobacco use date assessed: 03/23/23 Fall risk assessment: 2 + Falls in past year Last assessed Fall Risk: 05/26/23 Dental Screening Dental Screen Date: 05/26/23 Did you have a dental visit in the last 12 months?: No Did you have a dental problem in the last 6 months where you did not have access to dental care?: No Was dental information given to patient?: Yes HPI 05/17-05/19 [facility] High Blood Sugar HPI Details 72 y/o female presents to f/u [facility] visit 05/17-05/19 for high blood sugars. She had presented with chest pain, generalized weakness and hyperglycemia in the 400-600 range. Hx of CAD. Blood sugars had been elevated and had been given 10 units of subcutaneous lispro. A1c today 05/26/23 is 11.7%. She is on insulin glargine 20 units and was started on this 05/19/23. Pt reports insurance refuses to pay for lispro. She reports blood sugars at night was 545 and morning blood sugars were in the 340s. She has complaints of a yeast infection today. She reports she does have a Technology Teacher at [facility] - Dr. Wadsworth. She notes she has not met them yet. She reports intermittent sharp chest pain. 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 WORKER-D) in place Surgical History History of colonoscopy H/O endoscopy History of implantable cardioverter-defibrillator (ICD) placement (~06/21/17) History of cardiac catheterization (~08/2015) History of umbilical hernia repair History of appendectomy History of cholecystectomy History of tubal ligation Family History Father Myocardial infarction Mother Uterine cancer Lung cancer Maternal Aunt Uterine cancer Mouth cancer Social History Housing: House Patient Tobacco Use Status: Never used Tobacco e-Cigarette/Vaping Use: Never Used service: No Current occupational status: retired Current occupational exposures/hazards: No Cognitive needs: Yes Hearing needs: No Vision needs: Yes Questionnaire Thrive Questionnaire Date Thrive assessed: 03/09/22 DYLON-7 AMB Questionnaire DYLON-7 Date DYLON - 7 assessed: 03/09/22 Source: Developed by Drs. Wicho Tucker, Sana Mendoza, Ta Moctezuma and colleagues, with an educational thai from [employer]. Review of Systems Const Denies chills, Denies fatigue, Denies fever(s), Denies headache(s) and Denies weakness ENT Denies dizziness and Denies headache(s) Card Denies dyspnea Resp Denies cough, Denies dyspnea, Denies wheezing and Denies other (shortness of breath) Musc Denies numbness and Denies tingling Neuro Denies dizziness, Denies headache(s), Denies numbness, Denies tingling and Denies weakness Psych Denies anxiety and Denies depression Endo Denies fatigue Aller/Immun Denies wheezing Physical exam (Primary Care) Vital Signs: Last Vital Signs Pulse 70 05/26/23 11:12 BP 120/74 05/26/23 11:12 Pulse Ox 99 05/26/23 11:12 Oxygen Delivery Method Room Air 05/26/23 11:12 BMI result Body Mass Index 35.8 Tobacco/Smoking Status: Tobacco use Status Tobacco use date assessed 03/23/23 05/26/23 11:21 Patient Tobacco Use Status Never used Tobacco 05/26/23 11:21 e-Cigarette/Vaping Use Never Used 05/26/23 11:21 Thrive Assessment: Date of Thrive Assessment Date Thrive assessed 03/09/22 05/26/23 11:21 Const General: well developed; No acute distress Nutritional Appearance: well nourished Orientation/consciousness: patient oriented x3 HENMT Head: Yes normocephalic and Yes atraumatic Eyes General: appearance normal, both eyes and all related structures Pupils: Equal, round and reactive pupils present EOM: EOMs intact bilaterally Resp Effort & Inspection: normal respiratory effort Auscultation: clear to auscultation bilaterally Cardio Rate: regular rate Rhythm: regular rhythm Heart sounds: S1 normal heart sound present, S2 normal heart sound present, no gallops, no murmurs and no rubs Neuro General: patient oriented x3 and gait normal Cranial nerves: Yes Equal, round and reactive pupils present Psych Affect: normal affect Results AMB Hemoglobin A1c AMB Hemoglobin A1c 11.7 % Last Edit by Kenyatta Hooks CMA on 05/26/23 11:31 Results Reviewed Results Reviewed: Laboratory Last Values Hgb A1c (Clinic) 11.7 % (4.0-6.0) H 05/26/23 11:30 Assessment and Plan Assessment & Plan (1) Diabetes type 2, uncontrolled: Code(s): E11.65 - Type 2 diabetes mellitus with hyperglycemia Plan: A1c?today?11.7%. She?is?on?Lantus?30?units?daily?and?was?started?on?lispro?in?the?hospital?on?05/19/2023 but?insurance?declined?this?and?says?they?will?pay?for?Humalog?sliding?scale. Morning?blood?sugars?are?still?far?from?goal.??Will?increase?Lantus?from?30?units?to?35?units?daily. Will?add?Humalog?as?sliding?scale She?has?an?upcoming?appointment?on?the??of?May. (2) Atherosclerotic cardiovascular disease: Code(s): I25.10 - Atherosclerotic heart disease of [place] coronary artery without angina pectoris Plan: Coronary?artery?disease?and?has?been?referred?to?[facility]?with?an?upcoming?appointment. Gets?some?sharp?upper?left?chest?pains?but?no persistent?chest?pain.??I?advised?her?if?she?is?getting?persistent?chest?pain?that?does?not?go?away?with?relaxation.??She?should?go?to?the?ED?and?she?understands. Follow-up?with?Cardiology?as?recommended (3) Chest pain: Code(s): R07.9 - Chest pain, unspecified Qualifiers: Chest pain type: precordial pain Qualified Code(s): R07.2 - Precordial pain Plan: As?above (4) Yeast infection: Code(s): B37.9 - Candidiasis, unspecified Plan: Give?her?a?script?for?Diflucan Yeast?infections?will?likely?resolve?and?become?less?frequent?with?better?blood?sugar?control. (5) GI bleeding: Code(s): K92.2 - Gastrointestinal hemorrhage, unspecified Plan: Recent?history?GI?bleeding?and?required?transfusion Checking?CBC. She?denies?any?shortness?of?breath.??No?tachycardia Orders: Orders Comprehensive Met. Panel Today E11.65 - Type 2 diabetes mellitus with hyperglycemia AMB Hemoglobin A1c Today Z13.9 - Encounter for screening, unspecified Complete Blood Count Auto Diff Today Z00.00 - Encounter for general adult medical examination without abnormal findings Medications: New insulin lispro (Humalog KwikPen (U-100) Insulin) 151-200 Give 2 units 201-250 Give 4 units 251-300 Give 6 units 301-350 Give 8 units 351-400 Give 10 units 401-450 Give 12 units > 450 Give 12 units & call MD 1 sliding scale dose subcut USEASDIRECTD 30 days 15 mL 3RF fluconazole (Diflucan) 150 mg PO Q3D 2 tabs 0RF Changed From insulin glargine (Lantus Solostar U-100 Insulin) 20 units (0.2 mL) subcut DAILY 30 days 6 mL 3RF To insulin glargine (Lantus Solostar U-100 Insulin) 35 units (0.35 mL) subcut DAILY 30 days 12 mL 3RF Coding Level of Care Code Est Pt Level 4 (01477) Diagnoses Diabetes type 2, uncontrolled E11.65 Atherosclerotic cardiovascular disease I25.10 Chest pain R07.2 Chest pain type: precordial pain Yeast infection B37.9 GI bleeding K92.2
== END 2023-05-26 11:56 | disposition home or self-care (01) ==
PROVIDERS: PCP Family Medicine; Visit Provider Family Medicine
DX: E11.65 Type 2 diabetes mellitus with hyperglycemia (principal); I25.10 Atherosclerotic heart disease of native coronary artery without angina pectoris; R07.2 Precordial pain; B37.9 Candidiasis, unspecified; K92.2 Gastrointestinal hemorrhage, unspecified
CPT/HCPCS: 83036; 99214

== ENCOUNTER 2023-05-26 12:01 | Outpatient (REF) | payer OTHER, SELFPAY ==
[2023-05-26 14:25] LABS: MANUAL DIFF FLAG NO
[2023-05-26 14:37] LABS: Basophils Absolute Auto 0.1 X10*3/uL (0.0-0.2); Basophils Percent Auto 0.8 % (0-2); Eosinophils Absolute Auto 0.4 X10*3/uL (0.0-0.4); Eosinophils Percent Auto 4.4 % (0-4); Hematocrit 36.8 % (37.0-47.0); Hemoglobin 11.4 g/dl (12.0-16.0); Imm Gran Abs Auto 0.06 X10*3/uL (0.00-0.03); Imm Gran Pct Auto 0.8 % (0.0-0.4); Lymphocytes Absolute Auto 1.7 X10*3/uL (1.2-4.9); Mean Corpuscular Hemoglobin 26.9 pg (27.0-33.0); Mean Corpuscular Volume 86.8 fL (80.0-98.0); Mean Platelet Volume 11.2 fL (9.4-12.3); Monocytes Absolute Auto 0.6 X10*3/uL (0.1-1.2); Monocytes Percent Auto 7.6 % (2-11); Neutrophils Absolute Auto 5.1 x10*3/uL (2.0-8.3); Neutrophils Percent Auto 64.4 % (45-73); Platelet Count 183 X10*3/uL (160-400); Red Blood Count 4.24 X10*6/uL (4.20-5.50); Red Cell Distribution Width 19.4 % (11.0-16.0); White Blood Count 7.9 X10*3/uL (4.8-10.8)
[2023-05-26 15:18] LABS: Anion Gap 19 (12-20); Carbon Dioxide 21 mmol/L (22-29); Chloride 99 mmol/L (96-108); Potassium 4.8 mmol/L (3.3-5.1); Sodium 134 mmol/L (135-145)
[2023-05-26 15:19] LABS: Alanine Aminotransferase 16 U/L (0-31); Albumin Level 3.9 g/dL (3.5-5.0); Alkaline Phosphatase 115 U/L (39-117); Aspartate Amino Transferase 16 U/L (5-31); Bilirubin Total 0.3 mg/dL (0.0-1.0); Blood Urea Nitrogen 19 mg/dL (9-16); Calcium 9.8 mg/dL (8.4-10.2); Estimated Glomerular Filt Rate 51; Total Protein 6.6 g/dL (6.5-8.0)
[2023-05-26 16:35] LABS: Glucose Random 518 mg/dL (60-115)
== END 2023-05-26 12:02 | disposition home or self-care (01) ==
LOC: HO.WFDLDS 12:01
PROVIDERS: Visit Provider Family Medicine
DX: Z00.00 Encounter for general adult medical examination without abnormal findings (principal); E11.65 Type 2 diabetes mellitus with hyperglycemia
CPT/HCPCS: 36415; 80053; 85025

== ENCOUNTER 2023-06-16 12:43 | Outpatient (AMB) | payer OTHER, SELFPAY ==
--- NOTE | 2023-06-16 12:48 | MHC.PC.OV ---
Vital Signs 06/16/23 12:49 Height 5 ft 3 in Weight 209 lb 3 oz BMI 37.1 BP 124/60 Blood Pressure Location Lt brachial Position Sitting Respiration 13 Pulse 103 H Pulse Source Pulse Oximeter Temp 97.5 F Temp Source Temporal Artery Scan Pulse Oximetry (%) 99 Oxygen Delivery Method Room Air Intake Visit Reasons: Transfer of Care - f/u chronic conditions Intake Note: Patient states that her ankles are very swollen and feel tight. Patient needs a refill on her duloxetine. ANd patient would like script for novolog flex pen resent over patient states she never received it. Patient also need refills for her insulin needles as well. 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 Required: No Accompanied by: Self / Same As Patient Allergies Cephalosporins [CEPHALOSPORINS] Allergy (Intermediate, Verified 06/16/23 12:54) RASH oxycodone [From Tylox] Allergy (Intermediate, Verified 06/16/23 12:54) RASH Sulfa (Sulfonamide Antibiotics) [SULFA (SULFONAMIDE ANTIBIOTICS)] Allergy (Intermediate, Verified 06/16/23 12:54) RASH lisinopril Adverse Reaction (Severe, Verified 06/16/23 12:54) contraindication sulfamethoxazole [From Bactrim] Adverse Reaction (Severe, Verified 06/16/23 12:54) Rash trimethoprim [From Bactrim] Adverse Reaction (Severe, Verified 06/16/23 12:54) Rash naproxen [NAPROXEN] Adverse Reaction (Intermediate, Verified 06/16/23 12:54) contraindication Tobacco use date assessed: 03/23/23 Fall risk assessment: 2 + Falls in past year Last assessed Fall Risk: 06/16/23 Dental Screening Dental Screen Date: 06/16/23 Did you have a dental visit in the last 12 months?: Yes Did you have a dental problem in the last 6 months where you did not have access to dental care?: No Was dental information given to patient?: Patient has dentist HPI Transfer of Care - f/u chronic conditions HPI Details Transfer of Care Prior PCP:? SV Last office visit/CPE: Acute issue(s): Diabetes -Is on 36 units of her lantus. Her lowest morning blood sugar is 162. Swollen ankles PMHx: Hypertension, Bipolar 1 disorder, CAD, Diabetes SurgHx: FHx: SocHx: PFSH Medical History Anemia Type 2 diabetes mellitus with unspecified complications Atherosclerotic cardiovascular disease Cardiac resynchronization therapy defibrillator ([employer]ED [employer]ICE PROFESSIONAL-D) in place Surgical History History of colonoscopy H/O endoscopy History of implantable cardioverter-defibrillator (ICD) placement (~02/09/17) History of cardiac catheterization (~08/2015) History of umbilical hernia repair History of appendectomy History of cholecystectomy History of tubal ligation Family History Father Myocardial infarction Mother Uterine cancer Lung cancer Maternal Aunt Uterine cancer Mouth cancer Social History Housing: House Patient Tobacco Use Status: Never used Tobacco e-Cigarette/Vaping Use: Never Used service: No Current occupational status: retired Current occupational exposures/hazards: No Cognitive needs: Yes Hearing needs: No Vision needs: Yes Questionnaire Thrive Questionnaire Date Thrive assessed: 03/09/22 DYLON-7 AMB Questionnaire DYLON-7 Date DYOLN - 7 assessed: 03/09/22 Source: Developed by Drs. Wicho Tucker, Sana Mendoza, Ta Moctezuma and colleagues, with an educational thai from [employer]. Review of Systems Const Denies chills, Denies fatigue, Denies fever(s), Denies headache(s) and Denies weakness ENT Denies dizziness and Denies headache(s) Card Denies chest pain, Denies lightheadedness, Denies dyspnea and Denies other (Palpitations) Resp Denies cough, Denies dyspnea, Denies wheezing and Denies other ( shortness of breath) Musc Denies numbness and Denies tingling Neuro Denies dizziness, Denies headache(s), Denies numbness, Denies tingling, Denies paresthesias and Denies weakness Psych Denies anxiety and Denies depression Endo Denies fatigue Aller/Immun Denies wheezing Physical exam (Primary Care) Vital Signs: Last Vital Signs Temp 97.5 F 06/16/23 12:49 Pulse 103 H 06/16/23 12:49 Resp 13 06/16/23 12:49 BP 124/60 06/16/23 12:49 Pulse Ox 99 06/16/23 12:49 Oxygen Delivery Method Room Air 06/16/23 12:49 BMI result Body Mass Index 37.1 Tobacco/Smoking Status: Tobacco use Status Tobacco use date assessed 03/23/23 06/16/23 12:59 Patient Tobacco Use Status Never used Tobacco 06/16/23 12:59 e-Cigarette/Vaping Use Never Used 06/16/23 12:59 Thrive Assessment: Date of Thrive Assessment Date Thrive assessed 03/09/22 06/16/23 12:59 Const General: no acute distress and well developed Nutritional Appearance: well nourished Orientation/consciousness: patient oriented x3 HENMT Head: Yes normocephalic and Yes atraumatic Eyes General: appearance normal, both eyes and all related structures Pupils: Equal, round and reactive pupils present EOM: EOMs intact bilaterally Resp Effort & Inspection: normal respiratory effort Auscultation: clear to auscultation bilaterally Cardio Rate: regular rate Rhythm: regular rhythm Heart sounds: S1 normal heart sound present, S2 normal heart sound present, no gallops, no murmurs and no rubs Neuro General: patient oriented x3 and gait normal Cranial nerves: Yes Equal, round and reactive pupils present Extrem Other: 1+ bilateral lower extremity edema Psych Affect: normal affect Assessment and Plan Assessment & Plan (1) Type 2 diabetes mellitus with unspecified complications: Code(s): E11.8 - Type 2 diabetes mellitus with unspecified complications Plan: Blood?sugars?are?improving?but?still?rather?high. Morning?blood?sugars?no?lower?than?160s Increase?basal?insulin?from?36?units?daily?to?40?units?daily She?has?not?been?able?to?get?her?NovoLog?but?had?paid?out?of?pocket?for?lispro. Recent?script?for?NovoLog?flex?pen?and?sent?script?for?pen?needles. (2) Swelling of lower extremity: Code(s): M79.89 - Other specified soft tissue disorders Plan: 1+?bilateral?lower?extremity?edema?in?a?patient?with?CHF Check?labs?including?BNP She?is?taking?furosemide?20?mg?daily?and?I?have?given?her?a?script?for?an?additional?20?mg?daily?for?5?days;?total?daily?dose?40?mg?daily?x5?days?then?resume?20?mg?daily. (3) Tinnitus: Code(s): H93.19 - Tinnitus, unspecified ear Plan: Hydrate?well Continue?to?work?at?blood?sugar?control If?not?improving?will?refer (4) Atherosclerotic cardiovascular disease: Code(s): I25.10 - Atherosclerotic heart disease of [place] coronary artery without angina pectoris Plan: Stable (5) Hypertension, essential: Code(s): I10 - Essential (primary) hypertension Plan: Blood?pressure?is?controlled.??Goal?is?less?than?130/80 Continue?current?medication?regimen (6) Bipolar 1 disorder: Code(s): F31.9 - Bipolar disorder, unspecified Plan: Stable Medications: New pen needle, diabetic (BD Ultra-Fine Micro Pen Needle) To treat BS 4 times a day, As directed, 90 days 400 ea 3RF furosemide (Lasix) Total?daily?dose?40?mg x5 days 20 mg PO DAILY 5 days 5 tabs 0RF Changed From insulin glargine (Lantus Solostar U-100 Insulin) 35 units (0.35 mL) subcut DAILY 30 days 12 mL 3RF To insulin glargine (Lantus Solostar U-100 Insulin) 40 units (0.4 mL) subcut DAILY 30 days 12 mL 3RF Refilled insulin aspart U-100 (Novolog FlexPen U-100 Insulin aspart) 151-200 Give 2 units 201-250 Give 4 units 251-300 Give 6 units 301-350 Give 8 units 351-400 Give 10 units 401-450 Give 12 units > 450 Give 12 units & call MD 1 sliding scale dose subcut USEASDIRECTD 30 days 15 mL 3RF duloxetine 40 mg (2 x 20 mg) PO QAM 60 caps 4RF Coding Level of Care Code Est Pt Level 4 (20191) Diagnoses Type 2 diabetes mellitus with unspecified complications E11.8 Swelling of lower extremity M79.89 Tinnitus H93.19 Atherosclerotic cardiovascular disease I25.10 Hypertension, essential I10 Bipolar 1 disorder F31.9
[2023-06-16 12:49] VITALS: BP 124/60; PULSE 103; RESP 13; TEMP 36.4; O2SAT 99; BMI 37.1
== END 2023-06-16 13:31 | disposition home or self-care (01) ==
PROVIDERS: PCP Family Medicine; Visit Provider Family Medicine
DX: E11.8 Type 2 diabetes mellitus with unspecified complications (principal); F31.9 Bipolar disorder, unspecified; M79.89 Other specified soft tissue disorders; I25.10 Atherosclerotic heart disease of native coronary artery without angina pectoris; I10 Essential (primary) hypertension; H93.19 Tinnitus, unspecified ear
CPT/HCPCS: 99214

== ENCOUNTER 2023-07-19 14:14 | Outpatient (AMB) | payer OTHER, SELFPAY ==
--- NOTE | 2023-07-19 14:18 | A.OFFPC_ITS ---
Vital Signs 07/19/23 14:19 Height 5 ft 3 in Weight 203 lb 8 oz BMI 36.0 BP 128/65 Blood Pressure Location Lt brachial Position Sitting Pulse 81 Pulse Source Pulse Oximeter Pulse Oximetry (%) 98 Oxygen Delivery Method Room Air Intake Visit Reasons: f/u chronic conditions Intake Note: Patient is here for follow up on chronic conditions. Patient is requesting flu shot today, also. Patient also would like to get something for vaginal yeast infection. Allergies Cephalosporins [CEPHALOSPORINS] Allergy (Intermediate, Verified 07/19/23 14:24) RASH oxycodone [From Tylox] Allergy (Intermediate, Verified 07/19/23 14:24) RASH Sulfa (Sulfonamide Antibiotics) [SULFA (SULFONAMIDE ANTIBIOTICS)] Allergy (Intermediate, Verified 07/19/23 14:24) RASH lisinopril Adverse Reaction (Severe, Verified 07/19/23 14:24) contraindication sulfamethoxazole [From Bactrim] Adverse Reaction (Severe, Verified 07/19/23 14:24) Rash trimethoprim [From Bactrim] Adverse Reaction (Severe, Verified 07/19/23 14:24) Rash naproxen [NAPROXEN] Adverse Reaction (Intermediate, Verified 07/19/23 14:24) contraindication Tobacco use date assessed: 07/19/23 Fall risk assessment: 2 + Falls in past year Last assessed Fall Risk: 07/19/23 HPI f/u chronic conditions HPI Details 72 y/o female presents to f/u chronic co nditions such as diabetes and CHF. Had increased Lantus last office visit from 36 units to 40 units daily. Morning blood sugars have been in the 160s-200s. Lowest she has recorded was 127. Had recently been to ED 06/22/23 for chest pain. Workup did not reveal any evidence of acute heart injury or heart failure. Pt reports shaking with her L hand. She denies any pain or numbness associated with this. She denies any pain on her neck or shoulder. Pt reports ongoing ringing in her ears. HPI Comments History of Present Illness Details Documentation assistance for Monroe García MD, was provided by Jose Wilkins,? Audiology Director on 07/19/2023 2:53 PM EST. I, Dr. García, have read, observed, and verified documentation. [facility] Medical History Anemia Type 2 diabetes mellitus with unspecified complications Atherosclerotic cardiovascular disease Cardiac resynchronization therapy defibrillator (RUG DYER-D) in place Surgical History History of colonoscopy H/O endoscopy History of implantable cardioverter-defibrillator (ICD) placement (~02/09/17) History of cardiac catheterization (~08/2015) History of umbilical hernia repair History of appendectomy History of cholecystectomy History of tubal ligation Family History Father Myocardial infarction Mother Uterine cancer Lung cancer Maternal Aunt Uterine cancer Mouth cancer Social History Housing: House Patient Tobacco Use Status: Never used Tobacco e-Cigarette/Vaping Use: Never Used service: No Current occupational status: retired Current occupational exposures/hazards: No Cognitive needs: Yes Hearing needs: No Vision needs: Yes Questionnaire PHQ-9 Over the last 2 weeks, how often have you been bothered by any of the following problems? 1. Little interest or pleasure in doing things: several days 2. Feeling down, depressed, or hopeless: several days 3. Trouble falling or staying asleep, or sleeping too much: several days 4. Feeling tired or having little energy: not at all 5. Poor appetite or overeating: not at all 6. Feeling bad about yourself - or that you are a failure or have let yourself or your family down: not at all 7. Trouble concentrating on things, such as reading the newspaper or watching television: several days 8. Moving or speaking so slowly that other people could have noticed. Or the opposite - being so fidgety or restless that you have been moving around a lot more than usual: not at all 9. Thoughts that you would be better off or of hurting yourself in some way: not at all Total score: 4 Source: Developed by Drs. Wicho Tucker, Sana Mendoza, Ta Moctezuma and colleagues, with an educational thai from [employer]. Thrive Questionnaire Date Thrive assessed: 03/09/22 AUDIT C Alcohol Use Questionnaire (AUDIT-C) 1. How often do you have a drink containing alcohol?: Never 3. How often do you have six or more drinks on one occasion?: Never Total Score: 0 DYLON-7 AMB Questionnaire DYLON-7 Date DYLON - 7 assessed: 07/19/23 Feeling nervous, anxious, or on edge: 1 = Several days Not being able to stop or control worryin = Several days Worrying too much about different things: 1 = Several days Trouble relaxin = Several days Being so restless that it is hard to sit still: 1 = Several days Becoming easily annoyed or irritable: 1 = Several days Feeling afraid as if something awful might happen: 0 = Not at all Total DYLON-7 score (0-4 normal; 5-9 mild; 10-14 moderate; 15-21 severe): 6 Source: Developed by Drs. Wicho Tucker, Sana Mendoza, Ta Moctezuma and colleagues, with an educational thai from [employer]. Review of Systems Const Denies chills, Denies fatigue, Denies fever(s), Denies headache(s) and Denies weakness ENT Denies dizziness and Denies headache(s) Card Denies chest pain, Denies lightheadedness, Denies dyspnea and Denies other (Palpitations) Resp Denies cough, Denies dyspnea, Denies wheezing and Denies other ( shortness of breath) Musc Denies numbness and Denies tingling Neuro Denies dizziness, Denies headache(s), Denies numbness, Denies tingling, Denies paresthesias and Denies weakness Psych Denies anxiety and Denies depression Endo Denies fatigue Aller/Immun Denies wheezing Physical exam (Primary Care) Vital Signs: Last Vital Signs Pulse 81 07/19/23 14:19 BP 128/65 07/19/23 14:19 Pulse Ox 98 07/19/23 14:19 Oxygen Delivery Method Room Air 07/19/23 14:19 BMI result Body Mass Index 36.0 Tobacco/Smoking Status: Tobacco use Status Tobacco use date assessed 07/19/23 07/19/23 14:25 Patient Tobacco Use Status Never used Tobacco 07/19/23 14:25 e-Cigarette/Vaping Use Never Used 07/19/23 14:25 PHQ-9: PHQ-9 Score PHQ-9: Total score 4 07/19/23 14:40 Thrive Assessment: Date of Thrive Assessment Date Thrive assessed 03/09/22 07/19/23 14:25 Const General: no acute distress and well developed Nutritional Appearance: well nourished Orientation/consciousness: patient oriented x3 HENMT Head: Yes normocephalic and Yes atraumatic Eyes General: appearance normal, both eyes and all related structures Pupils: Equal, round and reactive pupils present EOM: EOMs intact bilaterally Resp Effort & Inspection: normal respiratory effort Auscultation: clear to auscultation bilaterally Cardio Rate: regular rate Rhythm: regular rhythm Heart sounds: S1 normal heart sound present, S2 normal heart sound present, no gallops, no murmurs and no rubs Neuro General: patient oriented x3 and gait normal Cranial nerves: Yes Equal, round and reactive pupils present Psych Affect: normal affect Assessment and Plan Assessment & Plan (1) Chest pain: Code(s): R07.9 - Chest pain, unspecified Qualifiers: Chest pain type: precordial pain Qualified Code(s): R07.2 - Precordial pain Plan: Recent ED visit for CP. Neg w/u for ACS and PE (2) Yeast infection: Code(s): B37.9 - Candidiasis, unspecified Plan: Will send diflucan Advised better BS control - see below (3) Type 2 diabetes mellitus with unspecified complications: Code(s): E11.8 - Type 2 diabetes mellitus with unspecified complications Plan: Had increased Lantus at last OV. Was having difficulty getting NovoLog for prandial insulin. Now, has?Lantus?and?her?NovoLog Taking?as?prescribed.??She?notes?that?blood?sugars?are?running?from?around?127- 167?in?the?mornings. She?will?increase?Lantus?from?40?units?daily?to?44?units?daily?and?continue?her? NovoLog?sliding?scale (4) Tremor of left hand: Code(s): R25.1 - Tremor, unspecified Plan: New?tremor?at?left?hand.??No?pain Referred?to?neurology (5) Immunization counseling: Code(s): Z71.85 - Encounter for immunization safety counseling Plan: Advised?high-dose?flu?shot?but?patient?says?she?would?rather?get?1?here Will?give?regular?dose?flu?shot?today. (6) Tinnitus: Code(s): H93.19 - Tinnitus, unspecified ear Plan: Referred?to?ENT Orders: Orders Basic Metabolic Panel Today Z00.00 - Encounter for general adult medical examination without abnormal findings Referrals Neurology Referral R25.1 - Tremor, unspecified Ear/Nose/Throat Referral H93.19 - Tinnitus, unspecified ear Medications: Changed From fluconazole (Diflucan) 150 mg PO Q3D 2 tabs 0RF To fluconazole 150 mg PO Q3D 2 tabs 0RF From insulin glargine (Lantus Solostar U-100 Insulin) 40 units (0.4 mL) subcut DAILY 30 days 12 mL 3RF To insulin glargine (Lantus Solostar U-100 Insulin) 44 units (0.44 mL) subcut DAILY 13.2 mL 3RF 30 days Coding Level of Care Code Est Pt Level 4 (31093) Diagnoses Chest pain R07.2 Chest pain type: precordial pain Yeast infection B37.9 Type 2 diabetes mellitus with unspecified complications E11.8 Tremor of left hand R25.1 Immunization counseling Z71.85 Tinnitus H93.19
[2023-07-19 14:19] VITALS: BP 128/65; PULSE 81; O2SAT 98; BMI 36.0
== END 2023-07-19 15:09 | disposition home or self-care (01) ==
PROVIDERS: PCP Family Medicine; Visit Provider Family Medicine
DX: R07.2 Precordial pain (principal); B37.9 Candidiasis, unspecified; E11.8 Type 2 diabetes mellitus with unspecified complications; R25.1 Tremor, unspecified; Z71.85 Encounter for immunization safety counseling; H93.19 Tinnitus, unspecified ear; Z23 Encounter for immunization
CPT/HCPCS: 90471; 90686; 99214

== ENCOUNTER 2023-08-18 13:09 | Outpatient (AMB) | payer OTHER, MEDICAID, SELFPAY ==
[2023-08-18 13:21] VITALS: BP 126/60; PULSE 89; RESP 14; O2SAT 96; BMI 37.2
--- NOTE | 2023-08-18 13:21 | MHC.PC.OV ---
Vital Signs 08/18/23 13:21 Height 5 ft 3 in Weight 210 lb BMI 37.2 BP 126/60 Blood Pressure Location Rt brachial Position Sitting Respiration 14 Pulse 89 Pulse Source Pulse Oximeter Pulse Oximetry (%) 96 Oxygen Delivery Method Room Air Intake Visit Reasons: f/u chronic conditions Intake Note: Patient is here today to follow up for chronic conditions. Patient reports she fell down the stairs last week and hit her head, left temporal area, on the wall and has had a headache since the fall. Per providers previous note patient is following up for diabetic care. Patient has an A1C completed in May 2023. Patient needs a refill on her prescriptions- Valsartan, Jardiance, spironolactone, Senna, Melatonin, Ferrous fumarate, Eliquis, and Ferosemide. Patient is requesting nystatin powder and a medication for a vaginal yeast infection. Furniture Inspector Required: No Accompanied by: Self / Same As Patient Allergies Cephalosporins [CEPHALOSPORINS] Allergy (Intermediate, Verified 08/18/23 13:32) RASH oxycodone [From Tylox] Allergy (Intermediate, Verified 08/18/23 13:32) RASH Sulfa (Sulfonamide Antibiotics) [SULFA (SULFONAMIDE ANTIBIOTICS)] Allergy (Intermediate, Verified 08/18/23 13:32) RASH lisinopril Adverse Reaction (Severe, Verified 08/18/23 13:32) contraindication sulfamethoxazole [From Bactrim] Adverse Reaction (Severe, Verified 08/18/23 13:32) Rash trimethoprim [From Bactrim] Adverse Reaction (Severe, Verified 08/18/23 13:32) Rash naproxen [NAPROXEN] Adverse Reaction (Intermediate, Verified 08/18/23 13:32) contraindication Tobacco use date assessed: 07/19/23 Fall risk assessment: 2 + Falls in past year Last assessed Fall Risk: 08/18/23 HPI f/u chronic conditions HPI Details 72 y/o female presents to f/u chronic conditions. Last A1c 05/26/23 was 11.7%. She is on her Lantus and NovoLog and increased Lantus from 40 units daily to 44 units daily. She has recorded morning blood sugars in the 140s-160s. She denies any low blood sugars. Pt reports a fall last week and had hit her head. She reports a headache since the fall. Pt denies any more chest pain. She reports a yeast infection under her breast. HPI Comments History of Present Illness Details Documentation assistance for Monroe García MD, was provided by Jose Wilkins, Detective Investigator on 08/18/2023 1:41 PM EST. I, Dr. García, have read, observed, and verified documentation. [facility] Medical History Anemia Type 2 diabetes mellitus with unspecified complications Atherosclerotic cardiovascular disease Cardiac resynchronization therapy defibrillator (RETAIL WIRELESS ASSOCIATE-D) in place Surgical History History of colonoscopy H/O endoscopy History of implantable cardioverter-defibrillator (ICD) placement (~02/09/17) History of cardiac catheterization (~08/2015) History of umbilical hernia repair History of appendectomy History of cholecystectomy History of tubal ligation Family History Father Myocardial infarction Mother Uterine cancer Lung cancer Maternal Aunt Uterine cancer Mouth cancer Social History Housing: House Patient Tobacco Use Status: Never used Tobacco e-Cigarette/Vaping Use: Never Used service: No Current occupational status: retired Current occupational exposures/hazards: No Cognitive needs: Yes Hearing needs: No Vision needs: Yes Questionnaire Thrive Questionnaire Date Thrive assessed: 03/09/22 DYLON-7 AMB Questionnaire DYLON-7 Date DYLON - 7 assessed: 07/19/23 Source: Developed by Drs. Wicho Tucker, Sana Mendoza, Ta Moctezuma and colleagues, with an educational thai from [employer]. Review of Systems Const Denies chills, Denies fatigue, Denies fever(s), Denies headache(s) and Denies weakness ENT Denies dizziness and Denies headache(s) Card Denies dyspnea Resp Denies cough, Denies dyspnea, Denies wheezing and Denies other (shortness of breath) Musc Denies numbness and Denies tingling Neuro Denies dizziness, Denies headache(s), Denies numbness, Denies tingling and Denies weakness Psych Denies anxiety and Denies depression Endo Denies fatigue Aller/Immun Denies wheezing Physical exam (Primary Care) Vital Signs: Last Vital Signs Pulse 89 08/18/23 13:21 Resp 14 08/18/23 13:21 BP 126/60 08/18/23 13:21 Pulse Ox 96 08/18/23 13:21 Oxygen Delivery Method Room Air 08/18/23 13:21 BMI result Body Mass Index 37.2 Tobacco/Smoking Status: Tobacco use Status Tobacco use date assessed 07/19/23 08/18/23 13:34 Patient Tobacco Use Status Never used Tobacco 08/18/23 13:34 e-Cigarette/Vaping Use Never Used 08/18/23 13:34 Thrive Assessment: Date of Thrive Assessment Date Thrive assessed 03/09/22 08/18/23 13:34 Const General: well developed; No acute distress Nutritional Appearance: obese Orientation/consciousness: patient oriented x3 HENMT Head: Yes normocephalic and Yes atraumatic Eyes General: appearance normal, both eyes and all related structures Pupils: Equal, round and reactive pupils present EOM: EOMs intact bilaterally Resp Effort & Inspection: normal respiratory effort Neuro General: patient oriented x3 and gait normal Cranial nerves: Yes Equal, round and reactive pupils present Psych Affect: normal affect Assessment and Plan Assessment & Plan (1) Diabetes type 2, uncontrolled: Code(s): E11.65 - Type 2 diabetes mellitus with hyperglycemia Plan: A1c?at?last?check?was?over?11?and?I?increased?her?Lantus?at?that?time. Not?time?to?check?A1c?again?but?her?morning?blood?sugars?still?in?150s. Increasing?Lantus?again?to?46?units?daily?and?she?can?continue?her?other?medications?as?prescribed. Work?on?a?diet?lower?in?sugars?and?starches (2) Fall: Code(s): W19.XXXA - Unspecified fall, initial encounter Plan: Mild?contusion?at?left?temporal?which?is?nontender. (3) Yeast infection: Code(s): B37.9 - Candidiasis, unspecified Plan: Yeast?infection?under?right?breast?and?also?vaginal?yeast?infection. Will?give?her?a?script?for?fluconazole?tablets?and?also?clotrimazole?cream?for?left?breast. Avoid?excess?moisture Medications: New fluconazole 150 mg PO Q3D 2 tabs 0RF 2 doses clotrimazole 1% 1 appl topical BID 45 grams 0RF 2 weeks Changed From insulin glargine (Lantus Solostar U-100 Insulin) 44 units (0.44 mL) subcut DAILY 30 days 13.2 mL 3RF To insulin glargine (Lantus Solostar U-100 Insulin) 46 units (0.46 mL) subcut DAILY 30 days 15 mL 3RF Refilled furosemide (Lasix) 20 mg PO DAILY 30 tabs 2RF I50.9 - Heart failure, unspecified sennosides-docusate sodium 8.6-50 mg ([place]-S) 1 tab-cap PO BEDTIME 30 tabs 2RF valsartan 40 mg PO DAILY 30 days 30 tabs 3RF melatonin 5 mg PO BEDTIME 30 days PRN 30 tabs 3RF sleep apixaban (Eliquis) 5 mg PO BID 30 days 60 tabs 3RF Coding Level of Care Code Est Pt Level 4 (70671) Diagnoses Diabetes type 2, uncontrolled E11.65 Fall W19.XXXA Yeast infection B37.9
== END 2023-08-18 13:51 | disposition home or self-care (01) ==
PROVIDERS: PCP Family Medicine; Visit Provider Family Medicine
DX: E11.65 Type 2 diabetes mellitus with hyperglycemia (principal); W19.XXXA Unspecified fall, initial encounter; B37.9 Candidiasis, unspecified
CPT/HCPCS: 99214

== ENCOUNTER 2023-11-17 10:08 | Outpatient (AMB) | payer OTHER, SELFPAY ==
--- NOTE | 2023-11-17 10:21 | MHC.PC.OV ---
Vital Signs 11/17/23 10:31 Height 5 ft 3 in Weight 221 lb BMI 39.1 BP 102/52 L Blood Pressure Location Rt brachial Position Sitting Respiration 14 Pulse 75 Pulse Source Pulse Oximeter Temp 98.1 F Temp Source Oral Pulse Oximetry (%) 95 Oxygen Delivery Method Room Air Intake Visit Reasons: f/u diabetes Intake Note: Follow up diabetes. Patient states she is on Torsemide not Furosemide, but its not on her medication list or pharmacy records. Allergies Cephalosporins [CEPHALOSPORINS] Allergy (Intermediate, Verified 11/17/23 10:22) RASH oxycodone [From Tylox] Allergy (Intermediate, Verified 11/17/23 10:22) RASH Sulfa (Sulfonamide Antibiotics) [SULFA (SULFONAMIDE ANTIBIOTICS)] Allergy (Intermediate, Verified 11/17/23 10:22) RASH lisinopril Adverse Reaction (Severe, Verified 11/17/23 10:22) contraindication sulfamethoxazole [From Bactrim] Adverse Reaction (Severe, Verified 11/17/23 10:22) Rash trimethoprim [From Bactrim] Adverse Reaction (Severe, Verified 11/17/23 10:22) Rash naproxen [NAPROXEN] Adverse Reaction (Intermediate, Verified 11/17/23 10:22) contraindication Tobacco use date assessed: 11/17/23 Fall risk assessment: 1 Fall in past year HPI f/u diabetes HPI Details 73 y/o female presents to f/u diabetes. Had increased her lantus to 46 units daily last office visit. A1c today 10.0%, which improved from 11.7% in May. Pt notes she continues to watch the sugars in her diet. She gets some exercise. [facility] Medical History Anemia Type 2 diabetes mellitus with unspecified complications Atherosclerotic cardiovascular disease Cardiac resynchronization therapy defibrillator (OB/GYN DOCTOR-D) in place Surgical History History of colonoscopy H/O endoscopy History of implantable cardioverter-defibrillator (ICD) placement (~02/09/17) History of cardiac catheterization (~08/2015) History of umbilical hernia repair History of appendectomy History of cholecystectomy History of tubal ligation Family History Father Myocardial infarction Mother Uterine cancer Lung cancer Maternal Aunt Uterine cancer Mouth cancer Social History Housing: House Patient Tobacco Use Status: Never used Tobacco e-Cigarette/Vaping Use: Never Used service: No Current occupational status: retired Current occupational exposures/hazards: No Cognitive needs: Yes Hearing needs: No Vision needs: Yes Questionnaire PHQ-9 Over the last 2 weeks, how often have you been bothered by any of the following problems? 1. Little interest or pleasure in doing things: not at all 2. Feeling down, depressed, or hopeless: not at all 3. Trouble falling or staying asleep, or sleeping too much: nearly every day 4. Feeling tired or having little energy: more than half the days 5. Poor appetite or overeating: not at all 6. Feeling bad about yourself - or that you are a failure or have let yourself or your family down: not at all 7. Trouble concentrating on things, such as reading the newspaper or watching television: several days 8. Moving or speaking so slowly that other people could have noticed. Or the opposite - being so fidgety or restless that you have been moving around a lot more than usual: not at all 9. Thoughts that you would be better off or of hurting yourself in some way: not at all Total score: 6 Depression Screening Interpretation: Positive Depression Screening Done: Yes [id number] - PHQ-9 Billing: Yes Source: Developed by Drs. Wicho Tucker, Sana Mendoza, Ta Moctezuma and colleagues, with an educational thai from [employer]. Thrive Questionnaire Date Thrive assessed: 03/09/22 DYLON-7 AMB Questionnaire DYLON-7 Date DYLON - 7 assessed: 07/19/23 Source: Developed by Drs. Wicho Tucker, Sana Mendoza, Ta Moctezuma and colleagues, with an educational thai from [employer]. Review of Systems Const Denies chills, Denies fatigue, Denies fever(s), Denies headache(s) and Denies weakness ENT Denies dizziness and Denies headache(s) Card Denies dyspnea Resp Denies cough, Denies dyspnea, Denies wheezing and Denies other (shortness of breath) Musc Denies numbness and Denies tingling Neuro Denies dizziness, Denies headache(s), Denies numbness, Denies tingling and Denies weakness Psych Denies anxiety and Denies depression Endo Denies fatigue Aller/Immun Denies wheezing Physical exam (Primary Care) Vital Signs: Last Vital Signs Temp 98.1 F 11/17/23 10:31 Pulse 75 11/17/23 10:31 Resp 14 11/17/23 10:31 BP 102/52 L 11/17/23 10:31 Pulse Ox 95 11/17/23 10:31 Oxygen Delivery Method Room Air 11/17/23 10:31 BMI result Body Mass Index 39.1 Tobacco/Smoking Status: Tobacco use Status Tobacco use date assessed 11/17/23 11/17/23 10:30 Patient Tobacco Use Status Never used Tobacco 11/17/23 10:30 e-Cigarette/Vaping Use Never Used 11/17/23 10:30 PHQ-9: PHQ-9 Score PHQ-9: Total score 6 11/17/23 10:55 Depression Screening Interpretation: Positive Thrive Assessment: Date of Thrive Assessment Date Thrive assessed 03/09/22 11/17/23 10:30 Const General: well developed; No acute distress Nutritional Appearance: well nourished Orientation/consciousness: patient oriented x3 HENMT Head: Yes normocephalic and Yes atraumatic Eyes General: appearance normal, both eyes and all related structures Pupils: Equal, round and reactive pupils present EOM: EOMs intact bilaterally Resp Effort & Inspection: normal respiratory effort Neuro General: patient oriented x3 and No gait normal Cranial nerves: Yes Equal, round and reactive pupils present Gait exam (Neuro): gait abnormal Extrem Other: 2+ LE edema Psych Affect: normal affect Results AMB Hemoglobin A1c AMB Hemoglobin A1c 10.0 % Last Edit by Kaylyn Tamez CMA on 11/17/23 10:47 Results Reviewed Results Reviewed: Laboratory Last Values Hgb A1c (Clinic) 10.0 % (4.0-6.0) H 11/17/23 10:43 Assessment and Plan Assessment & Plan (1) Diabetes type 2, uncontrolled: Code(s): E11.65 - Type 2 diabetes mellitus with hyperglycemia Plan: A1c?improved?from?11.7%?to?10.0%, after?increasing?Lantus?to?46?units?daily. Goal?is?less?than?7.0% Will?increase?Lantus?from?46?units?to?50?units?daily?and?continue?prandial?insulin?and?Jardiance?as?prescribed. Continue?to?work?at?a?diet?low?in?sugars?and?starches Encouraged?exercise?as?tolerated Will?follow-up?in?3?months (2) Lower extremity weakness: Code(s): R29.898 - Other symptoms and signs involving the musculoskeletal system Plan: Significant?lower?extremity?weakness?and?patient?has?a?history?of?congestive?heart?failure?and?diabetes?with?complications She?is?using?a?walker?but?has?new?seat?or?break?when?she?gets?tired Should?have?a?Rollator?walker?with?seat?and?break-ordered Difficulty?with?getting?up?and?should?have?a?lift?chair.??Ordered. Can?also?help?with?elevating?her?feet?as?she?has?lower?extremity?edema Patient?should?have?a?light-weight?wheelchair?for?longer?distances.??Ordered (3) Lower extremity edema: Code(s): R60.0 - Localized edema Plan: As?above Orders: Orders AMB Hemoglobin A1c Today E11.8 - Type 2 diabetes mellitus with unspecified complications Medications: New torsemide 20 mg PO DAILY 90 days 90 tabs 2RF walker (Ultra-[place] [facility] [place]ator?walker?with?seat?and?brakes.??Daily?As directed, 999 days 1 ea 0RF I50.9 - Heart failure, unspecified, R26.81 - Unsteadiness on feet, R29.898 - Other symptoms and signs involving the musculoskeletal system miscellaneous medical supply Lift Chair. Daily As directed, 999 days 1 ea 0RF I50.9 - Heart failure, unspecified, R26.81 - Unsteadiness on feet, R29.898 - Other symptoms and signs involving the musculoskeletal system, R60.0 - Localized edema chair, wheel (Wheel chair) Lightweight Wheel Chair. Daily, As directed, 999 days 1 ea 0RF E11.65 - Type 2 diabetes mellitus with hyperglycemia, I50.9 - Heart failure, unspecified, R26.81 - Unsteadiness on feet, R29.898 - Other symptoms and signs involving the musculoskeletal system, R60.0 - Localized edema Changed From insulin glargine (Lantus Solostar U-100 Insulin) 46 units (0.46 mL) subcut DAILY 30 days 15 mL 3RF To insulin glargine (Lantus Solostar U-100 Insulin) 50 units (0.5 mL) subcut DAILY 30 days 15 mL 3RF Coding Level of Care Code Est Pt Level 4 (16735) Diagnoses Diabetes type 2, uncontrolled E11.65 Lower extremity weakness R29.898 Lower extremity edema R60.0
[2023-11-17 10:31] VITALS: BP 102/52; PULSE 75; RESP 14; TEMP 36.7; O2SAT 95; BMI 39.1
== END 2023-11-17 11:28 | disposition home or self-care (01) ==
PROVIDERS: PCP Family Medicine; Visit Provider Family Medicine
DX: E11.65 Type 2 diabetes mellitus with hyperglycemia (principal); R29.898 Other symptoms and signs involving the musculoskeletal system; R60.0 Localized edema; E11.8 Type 2 diabetes mellitus with unspecified complications
CPT/HCPCS: 83036; 99214

== ENCOUNTER 2024-01-27 13:31 | Outpatient (AMB) | payer OTHER, SELFPAY ==
--- NOTE | 2024-01-27 13:34 | MHC.OFFVIS ---
Vital Signs 01/27/24 13:35 Height 5 ft 3 in Weight 222 lb BMI 39.3 BP 126/70 Blood Pressure Location Lt brachial Position Sitting Pulse 96 Pulse Source Pulse Oximeter Pulse Oximetry (%) 94 Oxygen Delivery Method Room Air Intake Visit Reasons: INP- Tremors-CONF Transmitter Supervisor Required: No Accompanied by: Self / Same As Patient Allergies Cephalosporins [CEPHALOSPORINS] Allergy (Intermediate, Verified 02/01/24 11:14) RASH oxycodone [From Tylox] Allergy (Intermediate, Verified 02/01/24 11:14) RASH Sulfa (Sulfonamide Antibiotics) [SULFA (SULFONAMIDE ANTIBIOTICS)] Allergy (Intermediate, Verified 02/01/24 11:14) RASH lisinopril Adverse Reaction (Severe, Verified 02/01/24 11:14) contraindication sulfamethoxazole [From Bactrim] Adverse Reaction (Severe, Verified 02/01/24 11:14) Rash trimethoprim [From Bactrim] Adverse Reaction (Severe, Verified 02/01/24 11:14) Rash naproxen [NAPROXEN] Adverse Reaction (Intermediate, Verified 02/01/24 11:14) contraindication Medication List - Last Reconciled 01/27/24 by RAY Patrick acetaminophen 325 mg PO QID PRN apixaban (Eliquis) 5 mg PO BID 30 days atorvastatin 80 mg (2 x 40 mg) PO DAILY 30 days blood sugar diagnostic (FreeStyle Lite Strips) As directed TID blood-glucose meter (FreeStyle Lite Meter kit) As directed chair, wheel (Wheel chair) Lightweight Wheel Chair. Daily, As directed, 999 days clopidogrel 75 mg PO DAILY 30 days clotrimazole 1% 1 appl topical BID 2 weeks duloxetine 40 mg (2 x 20 mg) PO QAM empagliflozin (Jardiance) 25 mg PO DAILY ferrous fumarate 325 mg PO DAILY 30 days gabapentin 200 mg (2 x 100 mg) PO TID 30 days insulin aspart U-100 (Novolog FlexPen U-100 Insulin aspart) 1 sliding scale dose subcut USEASDIRECTD 30 days insulin glargine (Lantus Solostar U-100 Insulin) 50 units (0.5 mL) subcut DAILY 30 days lancets (FreeStyle Lancets) As directed melatonin 5 mg PO BEDTIME PRN 30 days metoprolol succinate ER 50 mg (2 x 25 mg) PO DAILY 30 days mirtazapine 15 mg PO BEDTIME 30 days miscellaneous medical supply Lift Chair. Daily As directed, 999 days hikmqdux-lvqt-WE-calcium-mins 9 mg iron-400 mcg 1 tab PO DAILY 30 days nitroglycerin (Nitrostat) 0.4 mg sublingual Q5M PRN 1 month pantoprazole 40 mg (2 x 20 mg) PO DAILY 30 days pen needle, diabetic (BD Ultra-Fine Micro Pen Needle) To treat BS 4 times a day, As directed, 90 days quetiapine 300 mg (3 x 100 mg) PO BEDTIME 90 days sennosides-docusate sodium 8.6-50 mg (Senexon-S) 1 tab-cap PO BEDTIME spironolactone 25 mg PO DAILY torsemide 20 mg PO DAILY 90 days valsartan 40 mg PO DAILY 30 days walker (Ultra-Light Rollator [facility] [place]) Rollator?walker?with?seat?and?brakes.??Daily?As directed, 999 days HPI Comments Details: 73-yr-old female presents for new pt evaluation of movement disorder, specifically: tremor. Pt has h/o stroke- states mini-stroke 7 yrs ago w/o residual effects, dual-chamber pacemaker for a-fib tx (implanted 7 yrs ago prior to the ? of stroke), ischemic cardiomyopathy, CHF, HTN, HLD, CKD, diabtes, anemia, arthritis, depression, bipolar, headache. Pt is concerned about LUE rest and action tremor which started 6 months ago. She firts noticed it at rest, but now notices it with activity. Sometimes has difficulty closing her hand, and may drop things. Initially she thought this was due to hyperglycemia- BG was in 600s, but the sugars are better now, and the tremor persists. Pt is right handed. ADL status: Needs help due to gait and balance issues. 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 IADL status: She can manage her finances. Cannot cook or do housekeeping d/t cannot stand for long. Fine-motor skills: No issues Micrographia: Writing is ok Vision changes: impaired vision d/t macular degeneration, dry eye Hypophonia: denies any changes Hyposmia: denies Dysphagia: sometimes w/ hard food- currently edentulous- states needs to find a new dentist to obtain dentures. Drooling: Sometimes at night Orthostatic lightheadedness: Once in a while. Had some low BP a while ago. GI: Constipation: maanages w/ stool softener and senna. : urinary incontinence when she takes her diuretics Slowness: feels slower, has to move slow Freezing episodes: not usre- but has difficulty going up and down the stairs d/t left hip Tremor: only the LUE tremor Involuntary movements: Denies Dyskinesia: Denies Musculoskeletal: Sometimes- generalized stiffe=ness. Neck can be tight- no shooting pain. More prone to left hip and low back pain. Denies h/o neck or shoulder injury. Paresthesias: Has BLE diabetic neuropathy- Lisa bottom of feet tingling. Can feel the ground when walking. Gait changes: Pt states she is told she walks like a duck over the last 6 months. Has been using a walker for about a yr- but walking was better then than now. Falls- Had a fall 5 months ago, was walking down stairs in the dark, miseed last step or two- fell into wall, did hit her head- no significant injury- did not go to the ER. Sleep difficulty: Sleeps ok w/ quetiapine. States she has mild SIMRAN- dx'd 20 + yrs ago, but could not tolerate the CPAP mask. Parasomnias: Talks in her sleep Memory impairment: States it is ok, not as good as it was. Hallucinations: Denies Mood: Mood is ok . Not currently f/b psychiatry or therapist- states she has not needed anyone. Usual exercise: Does PT exercises. Her recent home PT has ordered a home peddler. History of concussion/head injury? None History of neuroleptic (metoclopramide/antipsychotics) use? Quetiapine 300mg qhs, x's yrs- was previously on 600mg. Uses metoclopramide prn gastroparesis. History of psychiatric hospitalizations? Has had 3-4 psychiatric hospitalizations over the last 30 yrs- last one was about 8 yrs ago. History of occupational chemical exposures? 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 Family history of movement disorders? None Family history of mood disorder or suicide? Denies [facility] Medical History Anemia Type 2 diabetes mellitus with unspecified complications Atherosclerotic cardiovascular disease Cardiac resynchronization therapy defibrillator (ANTITANK ASSAULT GUNNER-D) in place Surgical History History of colonoscopy H/O endoscopy History of implantable cardioverter-defibrillator (ICD) placement (~02/09/17) History of cardiac catheterization (~08/2015) History of umbilical hernia repair History of appendectomy History of cholecystectomy History of tubal ligation Family History Father Myocardial infarction Mother Uterine cancer Lung cancer Maternal Aunt Uterine cancer Mouth cancer Social History Housing: House Patient Tobacco Use Status: Never used Tobacco e-Cigarette/Vaping Use: Never Used service: No Current occupational status: retired Current occupational exposures/hazards: No Cognitive needs: Yes Hearing needs: No Vision needs: Yes Review of Systems Const All systems reviewed & are unremarkable except as noted in HPI and below Physical Exam Vital Signs: Last Vital Signs Pulse 96 01/27/24 13:35 BP 126/70 01/27/24 13:35 Pulse Ox 94 01/27/24 13:35 Oxygen Delivery Method Room Air 01/27/24 13:35 BMI result Body Mass Index 39.3 Const General: cooperative and no acute distress HEENT Face and sinus: Yes other (Decreased expression and blink) Resp Effort & Inspection: normal respiratory effort and able to speak in complete sentences Cardio Rate: regular rate Rhythm: regular rhythm Neuro Other: General: A&Ox's 3 Left tilt when sitting Mallampati stage 4 w/ small oral opening and edentulous Expression: Mild decreased expression and blink Voice: eased expression. Tremor: LUE rest and re-emergent postural tremor Finger-Nose- slow but intact BUE: Decreased lisa, w/ decreased fluidity on left Tone: LUE slight tone Dyskinesia: None FFM: Slow, more so on left Foot taps: Decreased and slower on left, Lisa foot taps induce increased LUE rest tremor. Gait: Slow to stand, uses hands to push up, slight left shoulder drop w/ forward stoop, no arm swing, LUE tremor, short steps w/ low poor clearance, multiple steps to turn. Gait better with walker but still stooped w/ left tilt. Psych: Pleasant affect. Deep tendon reflexes (DTR's): Right triceps reflex intensity grade: 1+, Left triceps reflex intensity grade: 1+, Rt Biceps (C5, C6): 1+, Left biceps reflex intensity grade: 1+, Right brachioradialis reflex intensity grade: 1+, Left brachioradialis reflex intensity grade: 1+, Right patellar reflex intensity grade: 0 and Left patellar reflex intensity grade: 0 Extrem Other: BLE distal edema Psych Mental Status: mental status grossly normal Speech and movement: Normal speech and movement present Affect: normal affect Attitude: cooperative Thought process: Normal thought process present Assessment & Plan Assessment & Plan (1) Cardiac resynchronization therapy defibrillator (ANTITANK ASSAULT GUNNER-D) in place: Code(s): Z95.810 - Presence of automatic (implantable) cardiac defibrillator Category: Medical (2) Tremor of left hand: Code(s): R25.1 - Tremor, unspecified Category: Medical (3) Unsteady gait: Code(s): R26.81 - Unsteadiness on feet Category: Medical Plan Pt has assymtric tremor, stiffness, slowness,a nd gait changes, which raise concern for a movement d/o- ? idiopathic PD, ? neuroleptic induced PDism, ? secondary PDism- as pt has risk factors for intracranial CV dz. Pt advsied to undergo Brain MRI w/o to assess for secondary intracranial etiologies of LUE tremor and gait changes, such as vascualr insult. If pacemaker is not MRI compatible, will order head CT. Upon review consider DaTscan, as pt has chronic h/o high dose quetiapine use, prn matoclopramide use, and h/o psychiatric hospitalizations. Pt is interested in trying medication tx for tremor- trial CD-LD 25-100mg 1 tab bid. Pt encouraged to continue doing her home PT exercises- use walker when walking. Orders: Orders MR head/brain wo con 01/27/24 E11.65 - Type 2 diabetes mellitus with hyperglycemia, I50.9 - Heart failure, unspecified, R25.1 - Tremor, unspecified, R26.81 - Unsteadiness on feet, Z95.810 - Presence of automatic (implantable) cardiac defibrillator Medications: New carbidopa-levodopa 25-100 mg take w/ a cracker 30 minutes before breakfast and dinner, 1 tab PO BID 60 tabs 3RF 30 days Coding Level of Care Code New Pt Level 4 (65954) Diagnoses Cardiac resynchronization therapy defibrillator (ANTITANK ASSAULT GUNNER-D) in place Z95.810 Tremor of left hand R25.1 Unsteady gait R26.81
[2024-01-27 13:35] VITALS: BP 126/70; PULSE 96; O2SAT 94; BMI 39.3
== END 2024-01-27 15:14 | disposition home or self-care (01) ==
PROVIDERS: PCP Family Medicine; Visit Provider Nurse Practitioner Family
DX: Z95.810 Presence of automatic (implantable) cardiac defibrillator (principal); R25.1 Tremor, unspecified; R26.81 Unsteadiness on feet
CPT/HCPCS: 99204

== ENCOUNTER → 2024-01-27 13:31 | Outpatient (BNVA) | payer OTHER, SELFPAY | PROVIDERS: PCP Family Medicine; Visit Provider Nurse Practitioner Family | DX: R25.1 Tremor, unspecified (principal); R26.81 Unsteadiness on feet; Z95.810 Presence of automatic (implantable) cardiac defibrillator | CPT/HCPCS: 99202 ==

== ENCOUNTER 2024-02-01 10:25 | Outpatient (AMB) | payer OTHER, SELFPAY ==
--- NOTE | 2024-02-01 11:11 | A.OFFPC_ITS ---
Vital Signs 02/01/24 11:12 Height 5 ft 3 in Weight 221 lb 6 oz BMI 39.2 BP 128/68 Blood Pressure Location Lt brachial Position Sitting Pulse 76 Pulse Source Pulse Oximeter Pulse Oximetry (%) 96 Oxygen Delivery Method Room Air Intake Visit Reasons: f/u diabetes Intake Note: Patient is here with left hip pain for a week, and bilateral swelling feet. She is also following up on her diabetes. She would like new order for PT. Allergies Cephalosporins [CEPHALOSPORINS] Allergy (Intermediate, Verified 02/01/24 11:14) RASH oxycodone [From Tylox] Allergy (Intermediate, Verified 02/01/24 11:14) RASH Sulfa (Sulfonamide Antibiotics) [SULFA (SULFONAMIDE ANTIBIOTICS)] Allergy (Intermediate, Verified 02/01/24 11:14) RASH lisinopril Adverse Reaction (Severe, Verified 02/01/24 11:14) contraindication sulfamethoxazole [From Bactrim] Adverse Reaction (Severe, Verified 02/01/24 11:14) Rash trimethoprim [From Bactrim] Adverse Reaction (Severe, Verified 02/01/24 11:14) Rash naproxen [NAPROXEN] Adverse Reaction (Intermediate, Verified 02/01/24 11:14) contraindication Medication List - Last Reconciled 02/01/24 by Monroe García MD acetaminophen 325 mg PO QID PRN apixaban (Eliquis) 5 mg PO BID 30 days atorvastatin 80 mg (2 x 40 mg) PO DAILY 30 days blood sugar diagnostic (FreeStyle Lite Strips) As directed TID blood-glucose meter (FreeStyle Lite Meter kit) As directed carbidopa-levodopa 25-100 mg 1 tab PO BID 30 days chair, wheel (Wheel chair) Lightweight Wheel Chair. Daily, As directed, 999 days clopidogrel 75 mg PO DAILY 30 days clotrimazole 1% 1 appl topical BID 2 weeks duloxetine 40 mg (2 x 20 mg) PO QAM empagliflozin (Jardiance) 25 mg PO DAILY ferrous fumarate 325 mg PO DAILY 30 days gabapentin 200 mg (2 x 100 mg) PO TID 30 days insulin aspart U-100 (Novolog FlexPen U-100 Insulin aspart) 1 sliding scale dose subcut USEASDIRECTD 30 days insulin glargine (Lantus Solostar U-100 Insulin) 50 units (0.5 mL) subcut DAILY 30 days lancets (FreeStyle Lancets) As directed melatonin 5 mg PO BEDTIME PRN 30 days metoprolol succinate ER 50 mg (2 x 25 mg) PO DAILY 30 days mirtazapine 15 mg PO BEDTIME 30 days miscellaneous medical supply Lift Chair. Daily As directed, 999 days sokbrmge-rgcz-UE-calcium-mins 9 mg iron-400 mcg 1 tab PO DAILY 30 days nitroglycerin (Nitrostat) 0.4 mg sublingual Q5M PRN 1 month pantoprazole 40 mg (2 x 20 mg) PO DAILY 30 days pen needle, diabetic (BD Ultra-Fine Micro Pen Needle) To treat BS 4 times a day, As directed, 90 days quetiapine 300 mg (3 x 100 mg) PO BEDTIME 90 days sennosides-docusate sodium 8.6-50 mg (Senexon-S) 1 tab-cap PO BEDTIME spironolactone 25 mg PO DAILY torsemide 20 mg PO DAILY 90 days valsartan 40 mg PO DAILY 30 days walker (Ultra-Light Rollator [facility]) Rollator?walker?with?sea t?and?brakes.??Daily?As directed, 999 days Tobacco use date assessed: 02/01/24 Fall risk assessment: No Falls in past year Last assessed Fall Risk: 02/01/24 Dental Screening Dental Screen Date: 02/01/24 Did you have a dental visit in the last 12 months?: No Did you have a dental problem in the last 6 months where you did not have access to dental care?: No Was dental information given to patient?: Patient has dentist HPI f/u diabetes HPI Details 73 y/o female presents today to f/u diab etes, lower extremity swelling. She is on torsemide 20mg daily, spironolactone 25mg. She tries to elevate her feet. A1c today 02/01/24 7.3%. [facility] Medical History Anemia Type 2 diabetes mellitus with unspecified complications Atherosclerotic cardiovascular disease Cardiac resynchronization therapy defibrillator (ENTREPRENEURSHIP PROGRAM DIRECTOR-D) in place Surgical History History of colonoscopy H/O endoscopy History of implantable cardioverter-defibrillator (ICD) placement (~02/09/17) History of cardiac catheterization (~08/2015) History of umbilical hernia repair History of appendectomy History of cholecystectomy History of tubal ligation Family History Father Myocardial infarction Mother Uterine cancer Lung cancer Maternal Aunt Uterine cancer Mouth cancer Social History Housing: House Patient Tobacco Use Status: Never used Tobacco e-Cigarette/Vaping Use: Never Used service: No Current occupational status: retired Current occupational exposures/hazards: No Cognitive needs: Yes Hearing needs: No Vision needs: Yes Questionnaire Thrive Questionnaire Date Thrive assessed: 03/09/22 DYLON-7 AMB Questionnaire DYLON-7 Date DYLON - 7 assessed: 07/19/23 Source: Developed by Drs. Wicho Tucker, Sana Mendoza, Ta Moctezuma and colleagues, with an educational thai from [employer]. Review of Systems Const Denies chills, Denies fatigue, Denies fever(s), Denies headache(s) and Denies weakness ENT Denies dizziness and Denies headache(s) Card Denies chest pain, Denies lightheadedness, Denies dyspnea and Denies other (Palpitations) Resp Denies cough, Denies dyspnea, Denies wheezing and Denies other ( shortness of breath) Musc Denies numbness and Denies tingling Neuro Denies dizziness, Denies headache(s), Denies numbness, Denies tingling, Denies paresthesias and Denies weakness Psych Denies anxiety and Denies depression Endo Denies fatigue Aller/Immun Denies wheezing Physical exam (Primary Care) Vital Signs: Last Vital Signs Pulse 76 02/01/24 11:12 BP 128/68 02/01/24 11:12 Pulse Ox 96 02/01/24 11:12 Oxygen Delivery Method Room Air 02/01/24 11:12 BMI result Body Mass Index 39.2 Tobacco/Smoking Status: Tobacco use Status Tobacco use date assessed 02/01/24 02/01/24 11:20 Patient Tobacco Use Status Never used Tobacco 02/01/24 11:13 e-Cigarette/Vaping Use Never Used 02/01/24 11:13 Thrive Assessment: Date of Thrive Assessment Date Thrive assessed 03/09/22 02/01/24 11:13 Const General: no acute distress and well developed Nutritional Appearance: well nourished Orientation/consciousness: patient oriented x3 [facility] Head: Yes normocephalic and Yes atraumatic Eyes General: appearance normal, both eyes and all related structures Pupils: Equal, round and reactive pupils present EOM: EOMs intact bilaterally Resp Effort & Inspection: normal respiratory effort Auscultation: clear to auscultation bilaterally Cardio Rate: regular rate Rhythm: regular rhythm Heart sounds: S1 normal heart sound present, S2 normal heart sound present, no gallops, no murmurs and no rubs Neuro General: patient oriented x3 and gait normal Cranial nerves: Yes Equal, round and reactive pupils present Psych Affect: normal affect Assessment and Plan Assessment & Plan (1) Swelling of lower extremity: Code(s): M79.89 - Other specified soft tissue disorders Plan: Lower?extremity?swelling?and?history?of?congestive?heart?failure Will?increase?her?torsemide Elevate?legs Will?give?her?a?script?for?compression?stockings Check?labs (2) Type 2 diabetes mellitus with unspecified complications: Code(s): E11.8 - Type 2 diabetes mellitus with unspecified complications Plan: A1c?had?been?10.0% and?now?down?to?7.3%.??Big?improvement?and?fairly?good?control.??Goal?is?7% Continue?current?medication?regimen (3) Lower extremity weakness: Code(s): R29.898 - Other symptoms and signs involving the musculoskeletal system Plan: Start?PT (4) Bilateral hip pain: Code(s): M25.551 - Pain in right hip; M25.552 - Pain in left hip Plan: Start?PT (5) Physical deconditioning: Code(s): R53.81 - Other malaise Plan: As?above,?start?PT Orders: Orders B Type Natriuretic Peptide Today I50.9 - Heart failure, unspecified Comprehensive Met. Panel Today I50.9 - Heart failure, unspecified Complete Blood Count Auto Diff Today I50.9 - Heart failure, unspecified, Z00.00 - Encounter for general adult medical examination without abnormal findings TSH reflex Free T4 Today I50.9 - Heart failure, unspecified, Z00.00 - Encounter for general adult medical examination without abnormal findings PT Evaluation and Treatment Today M25.551 - Pain in right hip, M25.552 - Pain in left hip, R29.898 - Other symptoms and signs involving the musculoskeletal system, R53.81 - Other malaise Medications: New compr.stocking,knee,long,large As directed, 90 days 12 ea 3RF M79.89 - Other specified soft tissue disorders Changed From torsemide 20 mg PO DAILY 90 days 90 tabs 2RF To torsemide 30 mg (1.5 x 20 mg) PO DAILY 90 days 135 tabs 2RF Coding Level of Care Code Est Pt Level 4 (56027) Diagnoses Swelling of lower extremity M79.89 Type 2 diabetes mellitus with unspecified complications E11.8 Lower extremity weakness R29.898 Bilateral hip pain M25.551; M25.552 Physical deconditioning R53.81
[2024-02-01 11:12] VITALS: BP 128/68; PULSE 76; O2SAT 96; BMI 39.2
== END 2024-02-01 11:42 | disposition home or self-care (01) ==
PROVIDERS: PCP Family Medicine; Visit Provider Family Medicine
DX: E11.8 Type 2 diabetes mellitus with unspecified complications (principal)
CPT/HCPCS: 83036; 99214

== ENCOUNTER 2024-04-05 14:00 | Outpatient (RCR) | payer OTHER, SELFPAY ==
--- NOTE | 2024-03-12 15:54 | MHC.PT.EP ---
[facility] [place] Office [place] Office [place] Office [address] Ivonne Ramirez [address] [phone] F: [phone] F: [phone] F: [phone] F: [phone] Physical Therapy Plan of Care Date of Evaluation: 03/12/24 Date of Surgery: Diagnosis: Pain in LEFT hip (MD Dx) Assessment: Patient is a pleasant 73 y.o. female who is referred to PT by Dr. Monroe García MD, with Dx of LEFT hip pain. Her pain appears to stem from muscle imbalances of LEFT hip causing compensation in low back. Patient impairments include poor posture, tenderness, pain, antalgic gait with rollater use, fall risk, poor balance. Patient current functional limitations are walking, standing, stair use, bending on/off toilet. Patient will benefit from skilled PT to address aforementioned impairments and functional limitations to meet established goals. Frequency and Duration: The patient will be seen 2x/week for 4 weeks Short Term Goals: 2 weeks Patient demonstrates consistency and independence with HEP to self manage symptoms. [address] Justice Goals: 4 weeks Patient presents with increased L hip glute med strength 4/5 to be able to ambulate with LRAD 100 ft without low back compensation or med/lat sway. Patient presents with increased L hip flexion strength 4+/5 to be able to ascend 12 steps to bedroom. Treatment Plan: Modalities to reduce pain, spasms and effusion. Manual therapy to restore motion and function. Therapeutic exercise to improve strength and flexibility. Neuromuscular re-education for posture and balance. Therapeutic activities to return to functional activities of daily living. Electronically signed by: Keiko Shah, PT, DPT Please sign and return to therapist. Thank you for your referral.
--- NOTE | 2024-05-16 09:33 | MHC.PT.DC ---
[facility] Office [place] Office [place] Office [address] Ivonne Ramirez [address] [phone] F: [phone] F: [phone] F: [phone] F: [phone] Physical Therapy Discharge Report Diagnosis: Pain in LEFT hip ( Dx) Date of Surgery: Date of Evaluation: 03/12/24 Date of Discharge: 05/16/24 Treatments to Date: 7 Cancellations to Date: 1 No Shows to Date: 1 Discharge Status: Improved Function Independent with HEP Discharge Summary: Deanna did not show to last scheduled visit and is therefore discharged from PT. Her last PT session on 04/05/24 the assessment reads, Since Deanna continues to note improvement in her symptoms I continued with the same program. She needed minimal cues to recall exercises, showing compliance with table exercises at home. She needs cues to avoid compensation in low back with standing exercises. She reports no pain to end session. Plan for discharge her next session. Electronically signed by: Keiko Shah, PT, DPT Please sign and return to therapist. Thank you for your referral.
== END 2024-05-16 09:32 | disposition home or self-care (01) ==
LOC: HO.PT 14:00
PROVIDERS: PCP Family Medicine; Visit Provider Family Medicine
DX: M25.551 Pain in right hip (principal); M25.552 Pain in left hip; R29.898 Other symptoms and signs involving the musculoskeletal system
CPT/HCPCS: 97110; 97162; 97530

== ENCOUNTER 2024-04-10 10:33 | Outpatient (AMB) | payer OTHER, SELFPAY ==
--- NOTE | 2024-04-10 10:36 | A.OFFPC_ITS ---
Vital Signs 04/10/24 10:42 Height 5 ft 3 in Weight 219 lb 6 oz BMI 38.9 BP 112/60 Blood Pressure Location Rt brachial Position Sitting Respiration 16 Pulse 70 Pulse Source Pulse Oximeter Temp 98 F Temp Source Tympanic Pulse Oximetry (%) 95 Oxygen Delivery Method Room Air Intake Visit Reasons: f/u diabetes, chronic conditions Intake Note: follow up for DM Allergies Cephalosporins [CEPHALOSPORINS] Allergy (Intermediate, Verified 04/10/24 10:40) RASH oxycodone [From Tylox] Allergy (Intermediate, Verified 04/10/24 10:40) RASH Sulfa (Sulfonamide Antibiotics) [SULFA (SULFONAMIDE ANTIBIOTICS)] Allergy (Intermediate, Verified 04/10/24 10:40) RASH lisinopril Adverse Reaction (Severe, Verified 04/10/24 10:40) contraindication sulfamethoxazole [From Bactrim] Adverse Reaction (Severe, Verified 04/10/24 10:40) Rash trimethoprim [From Bactrim] Adverse Reaction (Severe, Verified 04/10/24 10:40) Rash naproxen [NAPROXEN] Adverse Reaction (Intermediate, Verified 04/10/24 10:40) contraindication Medication List - Last Reconciled 04/10/24 by Monroe García MD acetaminophen 325 mg PO QID PRN apixaban (Eliquis) 5 mg PO BID 30 days atorvastatin 80 mg (2 x 40 mg) PO DAILY 30 days blood sugar diagnostic (FreeStyle Lite Strips) As directed TID blood-glucose meter (FreeStyle Lite Meter kit) As directed carbidopa-levodopa 25-100 mg 1 tab PO BID 30 days [chair lift Use chair lift daily as directed.; ] chair, wheel (Wheel chair) Lightweight Wheel Chair. Daily, As directed, 999 days clopidogrel 75 mg PO DAILY 30 days clotrimazole 1% 1 appl topical BID 2 weeks compr.stocking,knee,long,large As directed, 90 days diaper,brief,adult,disposable (Disposable Brief Jumbo X-Large) As directed duloxetine 40 mg (2 x 20 mg) PO QAM empagliflozin (Jardiance) 25 mg PO DAILY ferrous fumarate 325 mg PO DAILY 30 days gabapentin 200 mg (2 x 100 mg) PO TID 30 days insulin aspart U-100 (Novolog FlexPen U-100 Insulin aspart) 1 sliding scale dose subcut USEASDIRECTD 30 days insulin glargine (Lantus Solostar U-100 Insulin) 50 units (0.5 mL) subcut DAILY 30 days lancets (FreeStyle Lancets) As directed melatonin 5 mg PO BEDTIME PRN 30 days metoprolol succinate ER 50 mg (2 x 25 mg) PO DAILY 30 days mirtazapine 15 mg PO BEDTIME 30 days miscellaneous medical supply Lift Chair. Daily As directed, 999 days qxonmtxi-iqnv-ZS-calcium-mins 9 mg iron-400 mcg 1 tab PO DAILY 30 days nitroglycerin (Nitrostat) 0.4 mg sublingual Q5M PRN 1 month pantoprazole 40 mg (2 x 20 mg) PO DAILY 30 days pen needle, diabetic (BD Ultra-Fine Micro Pen Needle) To treat BS 4 times a day, As directed, 90 days quetiapine 300 mg (3 x 100 mg) PO BEDTIME 90 days sennosides-docusate sodium 8.6-50 mg (Senexon-S) 1 tab-cap PO BEDTIME spironolactone 25 mg PO DAILY torsemide 30 mg (1.5 x 20 mg) PO DAILY 90 days valsartan 40 mg PO DAILY 30 days walker (Ultra-Light Rollator misc) Rollator?walker?with?seat?and?brakes.??Daily?As directed, 999 days Tobacco use date assessed: 02/01/24 Dental Screening Dental Screen Date: 02/01/24 HPI f/u diabetes, chronic conditions HPI Details 73 y/o female presents to f/u CHF, diabe myke and weakness. Had increased her torsemide last office visit. Last A1c 02/01/24 7.3%. A1c today 04/10/24 is 8.4%. She is on Jardiance 25mg, Novolog, Lantus. Had not been able to get her compression stockings. LE swelling has improved. HPI Comments History of Present Illness Details Documentation assistance for Monroe García MD, was provided by Jose Wilkins,? Operations Associate on 04/10/2024 at 10:53 AM EST. I, Dr. García, have read, observed, and verified documentation. 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 Surgical History History of colonoscopy H/O endoscopy History of implantable cardioverter-defibrillator (ICD) placement (~02/09/17) History of cardiac catheterization (~08/2015) History of umbilical hernia repair History of appendectomy History of cholecystectomy History of tubal ligation Family History Father Myocardial infarction Mother Uterine cancer Lung cancer Maternal Aunt Uterine cancer Mouth cancer Social History Housing: House Patient Tobacco Use Status: Never used Tobacco e-Cigarette/Vaping Use: Never Used service: No Current occupational status: retired Current occupational exposures/hazards: No Cognitive needs: Yes Hearing needs: No Vision needs: Yes Questionnaire Thrive Questionnaire Date Thrive assessed: 03/09/22 DYLON-7 AMB Questionnaire DYLON-7 Date DYLON - 7 assessed: 07/19/23 Source: Developed by Drs. Wicho Tucker, Sana Mendoza, Ta Moctezuma and colleagues, with an educational thai from [employer]. Review of Systems Const Denies chills, Denies fatigue, Denies fever(s), Denies headache(s) and Denies weakness ENT Denies dizziness and Denies headache(s) Card Denies dyspnea Resp Denies cough, Denies dyspnea, Denies wheezing and Denies other (shortness of breath) Musc Denies numbness and Denies tingling Neuro Denies dizziness, Denies headache(s), Denies numbness, Denies tingling and Denies weakness Psych Denies anxiety and Denies depression Endo Denies fatigue Aller/Immun Denies wheezing Physical exam (Primary Care) Vital Signs: Last Vital Signs Temp 98 F 04/10/24 10:42 Pulse 70 04/10/24 10:42 Resp 16 04/10/24 10:42 BP 112/60 04/10/24 10:42 Pulse Ox 95 04/10/24 10:42 Oxygen Delivery Method Room Air 04/10/24 10:42 BMI result Body Mass Index 38.9 Tobacco/Smoking Status: Tobacco use Status Tobacco use date assessed 02/01/24 04/10/24 10:36 Patient Tobacco Use Status Never used Tobacco 04/10/24 10:36 e-Cigarette/Vaping Use Never Used 04/10/24 10:36 Thrive Assessment: Date of Thrive Assessment Date Thrive assessed 03/09/22 04/10/24 10:36 Const General: well developed; No acute distress Nutritional Appearance: well nourished Orientation/consciousness: patient oriented x3 [facility] Head: Yes normocephalic and Yes atraumatic Eyes General: appearance normal, both eyes and all related structures Pupils: Equal, round and reactive pupils present EOM: EOMs intact bilaterally Resp Effort & Inspection: normal respiratory effort Neuro General: patient oriented x3 and gait normal Cranial nerves: Yes Equal, round and reactive pupils present Psych Affect: normal affect Assessment and Plan Assessment & Plan (1) Type 2 diabetes mellitus with unspecified complications: Code(s): E11.8 - Type 2 diabetes mellitus with unspecified complications Plan: A1c?10%?in?October?and?had?dropped?down?below?8%?at?prior?visit (recorded?in?Visit?note). Now?A1c?has?climbed?to?8.4%. Morning?blood?sugars?in?the?160s Will?have?her?increase?her?Lantus?from?50?units?daily?to?54?units?daily Continue?Jardiance VICE CHAIR?notes?that?patient?has?been?drinking?a?lot?of?soda?lately?and?I?encouraged?m ore?Work?at?diabetic?diet. Will?have?the?nurse?navigator?contact?her?for?diabetic?teaching. Patient?has?not?seen?an?leasing professional?yet. She?will?contact?me?with?her?preferred?leasing professional?and?I?will?make?a?referra l (2) Hypertension, essential: Code(s): I10 - Essential (primary) hypertension Plan: Blood?pressure?is?controlled.??Goal?is?less?than?140/90 Continue?current?medication (3) CHF (NYHA class III, ACC/AHA stage C): Code(s): I50.9 - Heart failure, unspecified Plan: Stable.??Patient?is?breathing?easily Follow-up?with?Cardiology?as?recommended (4) Swelling of lower extremity: Code(s): M79.89 - Other specified soft tissue disorders Plan: Mild?lower?extremity?swelling?which?has?improved?after?increasing?her?torsemide. Elevate?legs Has?not?pick ed?up?compression?stockings?and?I?have?given?her?a?new?script?for?this (5) Lower extremity weakness: Code(s): R29.898 - Other symptoms and signs involving the musculoskeletal system Plan: Patient?underwent?physical?therapy?and?VICE CHAIR?notes?that?she?has?been?improving?but ?feels?she?could?benefit?from?further?physical?therapy. She?also?notes?that?patient?has?not?been?continuing?the?exercises?as?much?as?arianne ht?be?beneficial. Resume/extent?physical?therapy Orders: Orders AMB Hemoglobin A1c Today Z13.9 - Encounter for screening, unspecified Referrals Nurse Navigator Referral E11.65 - Type 2 diabetes mellitus with hyperglycemia Medications: Changed From insulin glargine (Lantus Solostar U-100 Insulin) 50 units (0.5 mL) subcut DAILY 30 days 15 mL 3RF To insulin glargine (Lantus Solostar U-100 Insulin) 54 units (0.54 mL) subcut DAILY 30 days 18 mL 3RF Refilled compr.stocking,knee,long,large As directed, 90 days 12 ea 3RF M79.89 - Other specified soft tissue disorders compr.stocking,knee,long,large As directed, 90 days 12 ea 3RF M79.89 - Other specified soft tissue disorders Coding Level of Care Code Est Pt Level 4 (24724) Diagnoses Type 2 diabetes mellitus with unspecified complications E11.8 Hypertension, essential I10 CHF (NYHA class III, ACC/AHA stage C) I50.9 Swelling of lower extremity M79.89 Lower extremity weakness R29.898
[2024-04-10 10:42] VITALS: BP 112/60; PULSE 70; RESP 16; TEMP 36.6; O2SAT 95; BMI 38.9
== END 2024-04-10 11:07 | disposition home or self-care (01) ==
PROVIDERS: PCP Family Medicine; Visit Provider Family Medicine
DX: E11.8 Type 2 diabetes mellitus with unspecified complications (principal)
CPT/HCPCS: 83036; 99214

== ENCOUNTER 2024-04-13 12:42 | Outpatient (REF) | payer OTHER, SELFPAY ==
--- NOTE | ~2024-04-13 | CT_ITS ---
EXAMINATION CT HEAD WITHOUT CONTRAST CLINICAL INFORMATION: Tremor COMPARISON: CT head January 14, 2013 TECHNIQUE: CT of the head was performed without intravenous contrast. Reformatted axial, coronal, and sagittal images were reviewed. This CT examination was performed using dose optimization techniques as appropriate, variously including the following: *Automated exposure control *Adjustment of mA and/or kV according to patient size (this includes techniques or standardized protocols for targeted exams where dose is matched to indication/reason for exam; i.e. extremities or head) *Use of iterative reconstruction technique DLP: 896 mGy-cm FINDINGS: No intracranial hemorrhage, extra-axial fluid collection, or midline shift is identified. Gabriel-white matter differentiation is preserved. The ventricles are within normal limits. Basal cisterns are within normal limits. Paranasal sinuses are clear. Mastoid air cells and middle ear cavities are clear. 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 CT/CT head/brain wo IV con IMPRESSION: No acute intracranial abnormality. Hyperostosis of the calvarium, which can be seen in the setting of Paget's disease, metastatic disease, osteopetrosis. Electronically signed by: Gustavo Larkin DO 04/23/2024 11:56 PM EDT
== END 2024-04-13 12:43 | disposition home or self-care (01) ==
LOC: HO.CT 12:42
PROVIDERS: PCP Family Medicine; Visit Provider Nurse Practitioner Family
DX: R25.1 Tremor, unspecified (principal); I25.10 Atherosclerotic heart disease of native coronary artery without angina pectoris; E11.8 Type 2 diabetes mellitus with unspecified complications
CPT/HCPCS: 70450

== ENCOUNTER 2024-05-03 14:08 | Outpatient (AMB) | payer OTHER, SELFPAY ==
--- NOTE | 2024-05-03 14:17 | A.OFFVIS_ITS ---
Vital Signs 05/03/24 14:18 Height 5 ft 3 in Weight 218 lb 4.122 oz BMI 38.7 BP 120/76 Blood Pressure Location Lt brachial Position Sitting Pulse 85 Pulse Source Pulse Oximeter Intake Visit Reasons: Type 2 DM/UNABLE TO LVM Intake Note: NEW Patient presents today to establish treatment for Type 2 Diabetes Mellitus: Last Diabetic eye exam was on: DUE Last Podiatry exam was on: Does not see a Solderer Most recent HbA1c: 8.4%, 04/10/2024 Random Glucose- 189mg/dL, Today Tax Accountant Required: No Accompanied by: Self / Same As Patient Allergies Cephalosporins [CEPHALOSPORINS] Allergy (Intermediate, Verified 05/03/24 14:18) RASH oxycodone [From Tylox] Allergy (Intermediate, Verified 05/03/24 14:18) RASH Sulfa (Sulfonamide Antibiotics) [SULFA (SULFONAMIDE ANTIBIOTICS)] Allergy (Intermediate, Verified 05/03/24 14:18) RASH lisinopril Adverse Reaction (Severe, Verified 05/03/24 14:18) contraindication sulfamethoxazole [From Bactrim] Adverse Reaction (Severe, Verified 05/03/24 14:18) Rash trimethoprim [From Bactrim] Adverse Reaction (Severe, Verified 05/03/24 14:18) Rash naproxen [NAPROXEN] Adverse Reaction (Intermediate, Verified 05/03/24 14:18) contraindication HPI Comments Details: 73 YO female who is seen in consultation for T2DM at the request of PCP with 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 Initially diagnosed with T2DM 1999. Was initially started on treatment with [insulin and metformin, metformin was stopped due to low EGFR this was stopped 2018]. Current regimen Lantus 54 units Humalog 2-12 units on a sliding scale starting at 150, going up by 2 units every 50 points jardiance 25mg She typically takes Humalog just with the dinner meal as for breakfast she eats just a small amount of fruit and a small snack in the day. Checks sugars [1-2] times per day. Range: In the morning she runs 140-170 with the lowest reading being 88 and later in the day before supper average 200 Reports low sugars very rare, lowest recent glucose is 88]. Treats lows with [eats something sweet]. [Checks] sugar after to ensure it is rising Most recent A1C [], [down] from prior [] on []. Family history of T2DM in [oldest son type 2]. Has eyes checked yearly, last eye exam [over one year ago], needs referral [denies] retinopathy. has macular degeneration Numbness and tinglin in the feet occ pain in legs + neuropathy, last foot exam [goes to a spa for nail care], saw podiatry in the past + nephropathy, on ARB UAC [] as measured on []. [Has] HLD, on [statin]. Last LDL [] as measured on []. [Denies] CAD. Diet: [] Weight: [] [Had] diabetes education. [facility] Medical History Anemia Type 2 diabetes mellitus with unspecified complications Atherosclerotic cardiovascular disease Cardiac resynchronization therapy defibrillator (PAPER STEAMER-D) in place Surgical History History of colonoscopy H/O endoscopy History of implantable cardioverter-defibrillator (ICD) placement (~02/09/17) History of cardiac catheterization (~08/2015) History of umbilical hernia repair History of appendectomy History of cholecystectomy History of tubal ligation Family History Father Myocardial infarction Mother Uterine cancer Lung cancer Maternal Aunt Uterine cancer Mouth cancer Social History Housing: House Patient Tobacco Use Status: Never used Tobacco e-Cigarette/Vaping Use: Never Used service: No Current occupational status: retired Current occupational exposures/hazards: No Cognitive needs: Yes Hearing needs: No Vision needs: Yes Physical Exam Vital Signs: Last Vital Signs Pulse 85 05/03/24 14:18 BP 120/76 05/03/24 14:18 BMI result Body Mass Index 38.7 Absence of Cushingoid features. Absence of acromegalic features. Neck exam reveals nl size thyroid about 15 gms. No thyroid nodules palpable. No carotid bruits present. Lungs CTA. Heart S1 S2, Reg R/R. No M/R/ G. Skin exam reveals absence of vitiligo or acanthosis nigricans. Abdominal exam reveals Soft NT/ND with NA BS. No organomegaly present. Const Other: Absence of Cushingoid features. Absence of acromegalic features. Neck exam reveals nl size thyroid about 15 gms. No thyroid nodules palpable. No carotid bruits present. Lungs CTA. Heart S1 S2, Reg R/R. No M/R G. Skin exam reveals absence of vitiligo or acanthosis nigricans. Should Neck Other: . Results Reviewed Results Reviewed: Laboratory Last Values Glucose (Clinic) 189 mg/dL (60-115) H 05/03/24 14:29 Laboratory Tests 11/12/21 05/26/23 05/26/23 09:20 11:30 12:05 Plt Count 183 Creatinine 1.17 Estimated GFR 46 51 Hgb A1c (Clinic) 11.7 H AST 16 ALT 16 11/17/23 04/10/24 10:43 16:17 Plt Count Creatinine Estimated GFR Hgb A1c (Clinic) 10.0 H 8.4 H AST ALT Assessment & Plan Assessment & Plan (1) Type 2 diabetes mellitus with unspecified complications: Code(s): E11.8 - Type 2 diabetes mellitus with unspecified complications Category: Medical Plan: type 2 diabetic with improving A1C. now down to 8.4% with target A1C 8% given her age and co morbidities. Will see patient back for [facility] review lof logs in 6 weeks and titrate insulin as needed. Orders: Orders Creatinine Urine 1 Week E11.8 - Type 2 diabetes mellitus with unspecified complications Basic Metabolic Panel 1 Week E11.8 - Type 2 diabetes mellitus with unspecified complications Lipid Panel 1 Week E11.8 - Type 2 diabetes mellitus with unspecified complications Microalbumin, Random (w Creat) 1 Week E11.8 - Type 2 diabetes mellitus with unspecified complications B Type Natriuretic Peptide 1 Week E11.8 - Type 2 diabetes mellitus with unspecified complications Coding Level of Care Code New Pt Level 4 (09587) Complex EM visit Add On G2211 Diagnoses Type 2 diabetes mellitus with unspecified complications E11.8 Time Spent (min) 30 Comment Time spent reviewing labs/provider notes, face to face, chart doc
[2024-05-03 14:18] VITALS: BP 120/76; PULSE 85; BMI 38.7
[2024-05-03 14:33] LABS: Glucose, Whole Blood 189 mg/dL (60-115)
== END 2024-05-03 15:07 | disposition home or self-care (01) ==
PROVIDERS: PCP Family Medicine; Visit Provider Nurse Practitioner Adult Health
DX: E11.8 Type 2 diabetes mellitus with unspecified complications (principal)
CPT/HCPCS: 99204; G2211

== ENCOUNTER → 2024-05-03 14:08 | Outpatient (BNVA) | payer OTHER, SELFPAY | PROVIDERS: PCP Family Medicine; Visit Provider Nurse Practitioner Adult Health | DX: E11.21 Type 2 diabetes mellitus with diabetic nephropathy (principal); E11.40 Type 2 diabetes mellitus with diabetic neuropathy, unspecified; Z79.4 Long term (current) use of insulin; Z79.84 Long term (current) use of oral hypoglycemic drugs; E78.5 Hyperlipidemia, unspecified | CPT/HCPCS: 82947; 99202 ==

== ENCOUNTER 2024-06-14 12:38 | Outpatient (AMB) | payer OTHER, SELFPAY ==
--- NOTE | 2024-06-14 07:32 | A.OFFVIS_ITS ---
Vital Signs 06/14/24 12:49 Height 5 ft 3 in Weight 218 lb 4.122 oz BMI 38.7 BP 116/76 Blood Pressure Location Rt brachial Position Sitting Pulse 79 Pulse Source Pulse Oximeter Intake Visit Reasons: Type 2 DM/CONFIRMED Intake Note: Patient presents today for a follow-up on Type 2 Diabetes Mellitus: Last Diabetic eye exam was on: DUE Last Podiatry exam was on: Does not see a Spike Machine Heater Most recent HbA1c: 8.4%, 04/10/2024 Random Glucose- 243 mg/dL, Today Set Off Blocker Required: No Accompanied by: Self / Same As Patient Allergies Cephalosporins [CEPHALOSPORINS] Allergy (Intermediate, Verified 06/14/24 12:49) RASH oxycodone [From Tylox] Allergy (Intermediate, Verified 06/14/24 12:49) RASH Sulfa (Sulfonamide Antibiotics) [SULFA (SULFONAMIDE ANTIBIOTICS)] Allergy (Intermediate, Verified 06/14/24 12:49) RASH lisinopril Adverse Reaction (Severe, Verified 06/14/24 12:49) contraindication sulfamethoxazole [From Bactrim] Adverse Reaction (Severe, Verified 06/14/24 12:49) Rash trimethoprim [From Bactrim] Adverse Reaction (Severe, Verified 06/14/24 12:49) Rash naproxen [NAPROXEN] Adverse Reaction (Intermediate, Verified 06/14/24 12:49) contraindication HPI Comments Details: 73 YO female who is seen in follow-up for T2DM. She was seen as an initial consult with myself on 05/03/2024. 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 HgbA1C 04/10/24 8.4%, down from 10.0% Initially diagnosed with T2DM 1999. Was initially started on treatment with insulin and metformin, metformin was stopped due to low EGFR this was stopped 2017. GLP 1 agonist contraindicated due to history of gastroparesis requiring hospitalization Current regimen Lantus 54 units Humalog 2-16 units on a sliding scale starting at 150, going up by 2 units every 50 points jardiance 25mg She typically takes Humalog just with the dinner meal as for breakfast she eats just a small amount of fruit and a small snack in the day. Checks sugars [3-4] times per day. morning readings this am 243 typically 140's to 160's before supper 145-188 bedtime 180's Denies retinopathy. Eye exam overdue and requests referral. Has nephropathy; with diminished EGFR 53 2022 no microalbumin in EHR Has neuropathy: Has symptoms of numbness, pain without cramping of the lower extremities. Saw Podiatry in the past and goes to a nail spa for pedicure Has gastroparesis requiring hospitalization in the past. Has CAD with implantable defibrillator. Followed by Dr. Costa at [facility] appt July 2024 Spoke with her dust collector this am as she had substernal CP. Channel Turner advised to continue nitro prn mr in 5 min x 2 then 911. NO reports of low glucose. Lowest recently 138 Treats lows with oj. [Checks] sugar after to ensure it is rising Family history of T2DM in [oldest son type 2]. Weight: Stable [facility] Medical History (Updated 06/14/24 @ 13:24 by Marisol Booth NP) Diabetic neuropathy Anemia Type 2 diabetes mellitus with unspecified complications Atherosclerotic cardiovascular disease Cardiac resynchronization therapy defibrillator (MICROSOFT NET DEVELOPER-D) in place Surgical History History of colonoscopy H/O endoscopy History of implantable cardioverter-defibrillator (ICD) placement (~02/09/17) History of cardiac catheterization (~08/2015) History of umbilical hernia repair History of appendectomy History of cholecystectomy History of tubal ligation Family History Father Myocardial infarction Mother Uterine cancer Lung cancer Maternal Aunt Uterine cancer Mouth cancer Social History Housing: House Patient Tobacco Use Status: Never used Tobacco e-Cigarette/Vaping Use: Never Used service: No Current occupational status: retired Current occupational exposures/hazards: No Cognitive needs: Yes Hearing needs: No Vision needs: Yes Physical Exam Vital Signs: Last Vital Signs Pulse 79 06/14/24 12:49 BP 116/76 06/14/24 12:49 BMI result Body Mass Index 38.7 Const Other: Absence of Cushingoid features. Absence of acromegalic features. Neck exam reveals nl size thyroid about 15 gms. No thyroid nodules palpable. No carotid bruits present. Lungs CTA. Heart S1 S2, Reg R/R. No M/R G. Skin exam reveals absence of vitiligo or acanthosis nigricans. No edema Visual exam of foot performed. No ulcerations or open lesions. No inter digit maceration or fissuring. No onychomycosis, no callouses. Sensation diminished to monofilament exam. Vibratory sensation is diminished with 128 Hz tuning fork. pain heel to palpation Results Reviewed Results Reviewed: Laboratory Last Values Glucose (Clinic) 243 mg/dL (60-115) H 06/14/24 12:53 Assessment & Plan Assessment & Plan (1) Type 2 diabetes mellitus with unspecified complications: Code(s): E11.8 - Type 2 diabetes mellitus with unspecified complications Category: Medical Plan: 73-year-old type 2 diabetic macro/macrovascular complications of CAD, neuropathy and nephropathy. Insulin scale adjusted The patient had an opportunity to ask questions regarding treatment plan. The patient expressed understanding and agreement with the above treatment plan. The patient is aware they should contact our office by phone for worsening glucose readings or for any low blood sugars which may warrant a change in diabetes medication. Compliance is encouraged with medications and any followup testing/consults which may have been ordered. Medications: New [diabetic shoes with insoles] for heel pain and peripheral neuropathy 1 ea 0RF right heel pain and peripheral neuropathy E11.40 - Type 2 diabetes mellitus with diabetic neuropathy, unspecified Patient Instructions: The patient was counseled to achieve a target A1C of 7% (154 avg). Fasting blood sugars should be 90-130 in the morning and less than 180 two hours after meals. Reviewed the relationship between poor diabetic control and the development of complications. Wear closed toe shoes, never walk barefooted and inspect the feet daily. For any signs of infection or open wound patient you should notify your PCP or go to urgent care/ER. The patient was counseled to always carry a source of sugar and on the rule of 15's: Take 3 glucose tablets and repeat again in 15 minutes if blood sugar is not in normal range. Continue to repeat every 15 minutes until blood sugar is normal. Coding Level of Care Code Est Pt Level 4 (22696) Complex EM visit Add On G2211 Diagnoses Type 2 diabetes mellitus with unspecified complications E11.8 Time Spent (min) 30 Comment Time spent reviewing labs/provider notes, face to face, chart doc
[2024-06-14 12:49] VITALS: BP 116/76; PULSE 79; BMI 38.7
[2024-06-14 12:59] LABS: Glucose, Whole Blood 243 mg/dL (60-115)
== END 2024-06-14 13:21 | disposition home or self-care (01) ==
PROVIDERS: PCP Family Medicine; Visit Provider Nurse Practitioner Adult Health
DX: E11.8 Type 2 diabetes mellitus with unspecified complications (principal)
CPT/HCPCS: 99214; G2211

== ENCOUNTER → 2024-06-14 12:38 | Outpatient (BNVA) | payer OTHER, SELFPAY | PROVIDERS: PCP Family Medicine; Visit Provider Nurse Practitioner Adult Health | DX: E11.40 Type 2 diabetes mellitus with diabetic neuropathy, unspecified (principal); E11.21 Type 2 diabetes mellitus with diabetic nephropathy; I25.10 Atherosclerotic heart disease of native coronary artery without angina pectoris; M79.671 Pain in right foot; Z79.4 Long term (current) use of insulin; Z79.899 Other long term (current) drug therapy | CPT/HCPCS: 82947; 99212 ==

== ENCOUNTER → 2024-08-13 10:59 | Outpatient (BNVA) | payer OTHER, SELFPAY | PROVIDERS: PCP Family Medicine; Visit Provider Family Medicine ==

== ENCOUNTER 2024-08-16 10:39 | Outpatient (AMB) | payer OTHER, SELFPAY ==
--- OUTSIDE RECORDS SUMMARY | 2024-08-16 10:42 | XMS_ITS | Clinical Summary ---
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 CHR KDNY Active 11-09 00:00: 00 ACUTE ON CHRONIC SYSTOLIC (CONGESTIVE) HEART FAILURE Active 11-09 00:00: 00 TYPE 2 DIABETES MELLITUS W DIABETIC CHRONIC KIDNEY DISEASE Active 11-09 00:00: 00 CHRONIC KIDNEY DISEASE, STAGE 3 UNSPECIFIED Active 11-09 00:00: 00 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 Active 11-09 00:00: 00 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 Active 11-09 00:00: 00 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 Active 11-09 00:00: 00 PAROXYSMAL ATRIAL FIBRILLATION Active 11-09 00:00: 00 GASTRO-ESOPH AGEAL REFLUX DISEASE WITHOUT ESOPHAGITIS Active 11-09 00:00: 00 IRON DEFICIENCY ANEMIA, UNSPECIFIED Active 11-09 00:00: 00 HYPERLIPIDEM IA, UNSPECIFIED Active 11-09 00:00: 00 OPIOID ABUSE, UNCOMPLICATE D Active 11-09 00:00: 00 MAJOR DEPRESSIVE DISORDER, RECURRENT, IN PARTIAL REMISSION Active 11-09 00:00: 00 SEDATIVE, HYPNOTIC OR ANXIOLYTIC ABUSE, UNCOMPLICATE D Active 11-09 00:00: 00 ANXIETY DISORDER, UNSPECIFIED Active 11-09 00:00: 00 CORRECTION (CURRENT) USE OF INSULIN Active 11-09 00:00: 00 PRESENCE OF CARDIAC PACEMAKER Active 08-22 00:00: 00 CORRECTION (CURRENT) USE OF ANTITHROMBOT ICS/ANTIPLAT ELETS Active 11-09 00:00: 00 PRESENCE OF CORONARY ANGIOPLASTY IMPLANT AND GRAFT Active 08-22 00:00: 00 HISTORY OF FALLING Active 11-09 00:00: 00 Allergies, Adverse Reactions, Alerts Allergy Name Allergy Type Status Severity Reaction(s) Onset Date Inactive Date Treating Clinician Comments LISINOPRIL Propensity to adverse reactions Active 11-09 11:46: 55 NAPROXEN Propensity to adverse reactions Active 11-09 11:47: 03 CEPHALOSPORI NS Propensity to adverse reactions Active 11-09 11:47: 14 SULFA DRUGS Propensity to adverse reactions Active 11-09 11:47: 20 TYLOX Propensity to adverse reactions Active 11-09 11:47: 26 BACTRIM Propensity to adverse reactions Active 11-09 11:47: 32 VICODIN Propensity to adverse reactions Active 11-09 11:47: 37 Medications Ordered Medication Name Filled Medication Name Start Date Stop Date Current Medication? Ordering Clinician Indication Dosage Frequency Signature (SIG) Comments Components acetaminoph en 325 mg tablet 11-10 00:00: 00 Yes [id number] FEVER/PAIN 2 tablet EVERY 4 HOURS 2 tablet EVERY 4 HOURS (route: oral) Med Classific ation: Analgesic , Anti-infl ammatory or Antipyret ic atorvastati n 40 mg tablet 11-10 00:00: 00 Yes [id number] HLD 1 tablet BEDTIME 1 tablet BEDTIME (route: oral) Med Classific ation: Cardiovas cular Therapy Agents clopidogrel 75 mg tablet 11-10 00:00: 00 Yes [id number] AFIB 1 tablet DAILY 1 tablet DAILY (route: oral) Med Classific ation: Hematolog ical Agents duloxetine 20 mg capsule,del ayed release 11-10 00:00: 00 Yes [id number] DEPRESSION 2 capsule DAILY 2 capsule DAILY (route: oral) Med Classific ation: Central Nervous System Agents Eliquis 5 mg tablet 11-10 00:00: 00 Yes [id number] AFIB 1 tablet 2 TIMES DAILY 1 tablet 2 TIMES DAILY (route: oral) Med Classific ation: Hematolog ical Agents ferrous sulfate 325 mg (65 mg iron) tablet 11-10 00:00: 00 Yes [id number] SUPPLEMENT 1 tablet DAILY 1 tablet DAILY (route: oral) Med Classific ation: Electroly te Balance-N utritiona l Products furosemide 20 mg tablet 11-10 00:00: 00 Yes [id number] EDEMA 1 tablet DAILY 1 tablet DAILY (route: oral) Med Classific ation: Cardiovas cular Therapy Agents gabapentin 100 mg capsule 11-10 00:00: 00 Yes [id number] PAIN 2 capsule 3 TIMES DAILY 2 capsule 3 TIMES DAILY (route: oral) Med Classific ation: Central Nervous System Agents insulin glargine (U-100) 100 unit/mL (3 mL) subcutaneou s pen 11-10 00:00: 00 Yes [id number] DM 30 unit BEDTIME 30 unit BEDTIME (route: subcutaneo us) Med Classific ation: Endocrine insulin lispro (U-100) 100 unit/mL subcutaneou s pen 11-10 00:00: 00 Yes [id number] BS 150-199 1 unit DIRECTED 1 unit [facility] Med Classific ation: Endocrine insulin lispro (U-100) 100 unit/mL subcutaneou s pen 11-10 00:00: 00 Yes [id number] BS 200-249 4 unit DIRECTED 4 unit DIRECTED (route: subcutaneo us) Med Classific ation: Endocrine insulin lispro (U-100) 100 unit/mL subcutaneou s pen 11-10 00:00: 00 Yes [id number] BS 250-299 6 unit DIRECTED 6 unit DIRECTED (route: subcutaneo us) Med Classific ation: Endocrine insulin lispro (U-100) 100 unit/mL subcutaneou s pen 11-10 00:00: 00 Yes [id number] BS 300-349 8 unit DIRECTED 8 unit DIRECTED ([facility] Med Classific ation: Endocrine insulin lispro (U-100) 100 unit/mL subcutaneou s pen 11-10 00:00: 00 Yes [id number] BS 350-399 10 unit DIRECTED 10 unit DIRECTED ([facility] Med Classific ation: Endocrine isosorbide dinitrate 30 mg tablet 11-10 00:00: 00 Yes [id number] HTN 2 tablet 2 TIMES DAILY 2 tablet 2 TIMES DAILY (route: oral) Med Classific ation: Cardiovas cular Therapy Agents lidocaine 5 % topical patch 11-10 00:00: 00 Yes [id number] PAIN 1 adhesiv e patch, medicat ed DAILY 1 adhesive patch, medicated DAILY (route: topical) Med Classific ation: Dermatolo gical melatonin 5 mg tablet 11-10 00:00: 00 Yes [id number] INSOMNIA 1 tablet DAILY 1 tablet DAILY (route: oral) Med Classific ation: Central Nervous System Agents metoprolol succinate ER 50 mg tablet,exte nded release 24 hr 11-10 00:00: 00 Yes [id number] HTN 1 tablet DAILY 1 tablet DAILY (route: oral) Med Classific ation: Cardiovas cular Therapy Agents miconazole nitrate 2 % topical powder 11-10 00:00: 00 Yes [id number] RASH Per instruc tions DAILY Per instructio ns DAILY (route: topical) Med Classific ation: Dermatolo gical midodrine 5 mg tablet 11-10 00:00: 00 Yes [id number] HYPOTENSION 1 tablet 3 TIMES DAILY 1 tablet 3 TIMES DAILY (route: oral) Med Classific ation: Cardiovas cular Therapy Agents mirtazapine 15 mg tablet 11-10 00:00: 00 Yes [id number] DEPRESSION 1 tablet DAILY 1 tablet DAILY (route: oral) Med Classific ation: Central Nervous System Agents multivitami n with minerals tablet 11-10 00:00: 00 Yes [id number] SUPPLEMENT 1 tablet DAILY 1 tablet DAILY (route: oral) Med Classific ation: Electroly te Balance-N utritiona l Products Nitrostat 0.4 mg sublingual tablet 11-10 00:00: 00 Yes [id number] CHEST PAIN 1 tablet EVERY 5 MINUTES TIMES 3 1 tablet EVERY 5 MINUTES TIMES 3 (route: sublingual ) Med Classific ation: Cardiovas cular Therapy Agents pantoprazol e 40 mg tablet,jessica yed release 11-10 00:00: 00 Yes [id number] GERD 1 tablet DAILY 1 tablet DAILY (route: oral) Med Classific ation: Gastroint estinal Therapy Agents Saccharomyc es boulardii 250 mg capsule 11-10 00:00: 00 Yes [id number] PROBIOTIC 1 capsule 2 TIMES DAILY 1 capsule 2 TIMES DAILY (route: oral) Med Classific ation: Gastroint estinal Therapy Agents sennosides 8.6 mg-docusate sodium 50 mg tablet 11-10 00:00: 00 Yes [id number] constipatio n 2 tablet DAILY 2 tablet DAILY (route: oral) Med Classific ation: Gastroint estinal Therapy Agents Vital Signs Vital Name Observation Time Observation Value Commen ts Temperature 2022-11-22 09:44:00.000 96 [degF] Temperature 2022-11-17 13:07:00.000 97.5 [degF] Temperature 2022-11-16 15:51:00.000 96.8 [degF] Temperature 2022-11-16 11:51:00.000 97.2 [degF] Temperature 2022-11-12 11:16:00.000 97.5 [degF] Temperature 2022-11-10 12:30:00.000 97.2 [degF] BMI (%) 2022-11-10 12:30:00.000 33 kg/m2 Height 2022-11-10 12:30:00.000 63 [in_us] Pulse 2022-11-22 09:44:00.000 61 /min Pulse 2022-11-17 13:07:00.000 96 /min Pulse 2022-11-16 11:51:00.000 74 /min Pulse 2022-11-12 11:16:00.000 90 /min Pulse 2022-11-10 12:30:00.000 68 /min O2 Saturation (%) 2022-11-17 13:07:00.000 98 % O2 Saturation (%) 2022-11-16 15:51:00.000 98 % O2 Saturation (%) 2022-11-12 11:16:00.000 99 % O2 Saturation (%) 2022-11-10 12:30:00.000 98 % Respirations 2022-11-22 09:44:00.000 16 /min Respirations 2022-11-17 13:07:00.000 16 /min Respirations 2022-11-16 15:51:00.000 16 /min Respirations 2022-11-16 11:51:00.000 18 /min Respirations 2022-11-12 11:16:00.000 16 /min Respirations 2022-11-10 12:30:00.000 18 /min Weight (lbs) 2022-11-22 09:45:00.000 194 [lb_av] Weight (lbs) 2022-11-17 13:12:00.000 195.6 [lb_av] Weight (lbs) 2022-11-16 15:17:00.000 194 [lb_av] Weight (lbs) 2022-11-10 12:30:00.000 190.8 [lb_av] Systolic Blood Pressure 2022-11-22 09:44:00.000 130 mm [Hg] Systolic Blood Pressure 2022-11-17 13:07:00.000 114 mm [Hg] Systolic Blood Pressure 2022-11-16 11:51:00.000 128 mm [Hg] Systolic Blood Pressure 2022-11-12 11:16:00.000 110 mm [Hg] Systolic Blood Pressure 2022-11-10 12:30:00.000 100 mm [Hg] Diastolic Blood Pressure 2022-11-22 09:44:00.000 80 mm [Hg] Diastolic Blood Pressure 2022-11-17 13:07:00.000 60 mm [Hg] Diastolic Blood Pressure 2022-11-16 11:51:00.000 74 mm [Hg] Diastolic Blood Pressure 2022-11-12 11:16:00.000 60 mm [Hg] Diastolic Blood Pressure 2022-11-10 12:30:00.000 64 mm [Hg] Plan of Treatment Planned Activity Planned Date Details Comments Future Scheduled Test SKILLED NU RSE TO ASSESS, EVALUATE, AND DEVELOP AN INDIVIDUALIZED PLAN OF CARE. AGENCY MAY ACCEPT ORDERS FROM CONSULTING PHYSICIANS ABE CHANEL NP. TO OBSERVE/ASSESS RISK FOR FALLS AND INSTRUCT IN FALL PREVENTION, HOME SAFETY, MEDICATION MANAGEMENT, INFECTION PREVENTION, AND NUTRITION MANAGEMENT. SN MAY PERFORM O2 SATURATION LEVEL ON ADMISSION AND PRN FOR SOB TO ASSESS PATIENT, WITH NOTIFICATION TO THE PHYSICIAN IF SATURATION IS 90% IN THE ABSENCE OF MORE SPECIFIC PARAMETERS FROM THE PHYSICIAN. AGENCY MAY PERFORM A RESUMPTION OF CARE VISIT FOLLOWING ANY HOSPITAL ADMISSION. SKILLED NURSE TO ASSESS/EVALUATE CO-MORBID CONDITIONS AND ANY NEW CONDITIONS THAT PRESENT THEMSELVES DURING THIS EPISODE TO IDENTIFY CHANGES AND INTERVENE TO MINIMIZE COMPLICATIONS. [code = SKILLED NURSE TO ASSESS, EVALUATE, AND DEVELOP AN INDIVIDUALIZED PLAN OF CARE. AGENCY MAY ACCEPT ORDERS FROM CONSULTING PHYSICIANS ABE PEREZ TO OBSERVE/ASSESS RISK FOR FALLS AND INSTRUCT IN FALL PREVENTION, HOME SAFETY, MEDICATION MANAGEMENT, INFECTION PREVENTION, AND NUTRITION MANAGEMENT. SN MAY PERFORM O2 SATURATION LEVEL ON ADMISSION AND PRN FOR SOB TO ASSESS PATIENT, WITH NOTIFICATION TO THE PHYSICIAN IF SATURATION IS 90% IN THE ABSENCE OF MORE SPECIFIC PARAMETERS FROM THE PHYSICIAN. AGENCY MAY PERFORM A RESUMPTION OF CARE VISIT FOLLOWING ANY HOSPITAL ADMISSION. SKILLED NURSE TO ASSESS/EVALUATE CO-MORBID CONDITIONS AND ANY NEW CONDITIONS THAT PRESENT THEMSELVES DURING THIS EPISODE TO IDENTIFY CHANGES AND INTERVENE TO MINIMIZE COMPLICATIONS.] Future Scheduled Test MEDICATION MANAGEMENT; SKILLED NURSE TO REVIEW MEDICATIONS FOR INTERACTIONS, EFFECTIVENESS OF DRUG THERAPY, AND SIGNS/SYMPTOMS OF ADVERSE REACTIONS. MAY INSTRUCT AND REINFORCE MEDICATION TEACHING RELATED TO THE USE OF MEDICATIONS, DOSAGE, FREQUENCY, PURPOSE, SIDE EFFECTS, AND TO REPORT COMPLICATIONS. [code = MEDICATION MANAGEMENT; SKILLED NURSE TO REVIEW MEDICATIONS FOR INTERACTIONS, EFFECTIVENESS OF DRUG THERAPY, AND SIGNS/SYMPTOMS OF ADVERSE REACTIONS. MAY INSTRUCT AND REINFORCE MEDICATION TEACHING RELATED TO THE USE OF MEDICATIONS, DOSAGE, FREQUENCY, PURPOSE, SIDE EFFECTS, AND TO REPORT COMPLICATIONS.] Future Scheduled Test RISK FOR H OSPITALIZATION; SKILLED NURSE TO INSTRUCT PATIENT/CAREGIVER ON RISK FOR HOSPITALIZATION/EMERGENCY ROOM VISITS, TEACH SIGNS AND SYMPTOMS THAT PUT PATIENT AT RISK, WHEN TO NOTIFY NURSE/PHYSICIAN OF COMPLICATIONS/DECLINE, AND WHEN TO CALL 911. [code = RISK FOR HOSPITALIZATION; SKILLED NURSE TO INSTRUCT PATIENT/CAREGIVER ON RISK FOR HOSPITALIZATION/EMERGENCY ROOM VISITS, TEACH SIGNS AND SYMPTOMS THAT PUT PATIENT AT RISK, WHEN TO NOTIFY NURSE/PHYSICIAN OF COMPLICATIONS/DECLINE, AND WHEN TO CALL 911.] Future Scheduled Test CARDIOVASC ULAR SYSTEM; SKILLED NURSE TO ASSESS AND TEACH RELATED TO ALTERED CARDIOVASCULAR STATUS TO MINIMIZE COMPLICATIONS AND REDUCE HOSPITALIZATION. [code = CARDIOVASCULAR SYSTEM; SKILLED NURSE TO ASSESS AND TEACH RELATED TO ALTERED CARDIOVASCULAR STATUS TO MINIMIZE COMPLICATIONS AND REDUCE HOSPITALIZATION.] Future Scheduled Test HEART FAIL URE; SKILLED NURSE TO ASSESS CARDIOPULMONARY SYSTEM TO IDENTIFY SIGNS OF DECOMPENSATION AND INTERVENE TO MINIMIZE THE SEVERITY OF FLUID OVERLOAD. ASSESS PATIENT ABILITY TO MONITOR AND RECORD DAILY WEIGHTS AND VITAL SIGNS, INCLUDING PULSE AND BLOOD PRESSURE; RECORD PATIENT REPORTED WEIGHT, OR WEIGH PATIENT NEEDED. REPORT INCREASED EDEMA OR WEIGHT GAIN OF >2 LBS IN 1 DAY OR >5 LBS IN 1 WEEK OR 5LBS OR MORE OVER TARGET WEIGHT. MAY MEASURE ABDOMINAL GIRTH IF UNABLE TO WEIGH. SCALES AND BP MONITOR TO BE PROVIDED IF NEEDED. [code = HEART FAILURE; SKILLED NURSE TO ASSESS CARDIOPULMONARY SYSTEM TO IDENTIFY SIGNS OF DECOMPENSATION AND INTERVENE TO MINIMIZE THE SEVERITY OF FLUID OVERLOAD. ASSESS PATIENT ABILITY TO MONITOR AND RECORD DAILY WEIGHTS AND VITAL SIGNS, INCLUDING PULSE AND BLOOD PRESSURE; RECORD PATIENT REPORTED WEIGHT, OR WEIGH PATIENT NEEDED. REPORT INCREASED EDEMA OR WEIGHT GAIN OF >2 LBS IN 1 DAY OR >5 LBS IN 1 WEEK OR 5LBS OR MORE OVER TARGET WEIGHT. MAY MEASURE ABDOMINAL GIRTH IF UNABLE TO WEIGH. SCALES AND BP MONITOR TO BE PROVIDED IF NEEDED.] Future Scheduled Test HYPERTENSI ON MANAGEMENT; SKILLED NURSE TO ASSESS/TEACH WARNING SIGNS AND SYMPTOMS TO AVOID HOSPITALIZATION. [code = HYPERTENSION MANAGEMENT; SKILLED NURSE TO ASSESS/TEACH WARNING SIGNS AND SYMPTOMS TO AVOID HOSPITALIZATION.] Future Scheduled Test ATRIAL FIB RILLATION MANAGEMENT; SKILLED NURSE TO ASSESS/TEACH WARNING SIGNS AND SYMPTOMS TO AVOID HOSPITALIZATION. [code = ATRIAL FIBRILLATION MANAGEMENT; SKILLED NURSE TO ASSESS/TEACH WARNING SIGNS AND SYMPTOMS TO AVOID HOSPITALIZATION.] Future Scheduled Test PACEMAKER MANAGEMENT; SKILLED NURSE TO PROVIDE SKILLED TEACHING AND ASSIST WITH MANAGEMENT OF PACEMAKER. [code = PACEMAKER MANAGEMENT; SKILLED NURSE TO PROVIDE SKILLED TEACHING AND ASSIST WITH MANAGEMENT OF PACEMAKER.] Future Scheduled Test PAIN MANAG EMENT; SKILLED NURSE TO OBSERVE, ASSESS, AND PROVIDE EDUCATION ON PAIN MANAGEMENT TECHNIQUES. [code = PAIN MANAGEMENT; SKILLED NURSE TO OBSERVE, ASSESS, AND PROVIDE EDUCATION ON PAIN MANAGEMENT TECHNIQUES.] Future Scheduled Test DIABETES M ANAGEMENT; SKILLED NURSE FOR INSTRUCTIONS OF DIABETIC CARE TO INCLUDE: DIET DIABETIC, SKIN CARE, SIGNS AND SYMPTOMS OF HYPO/HYPERGLYCEMIA, PROPER ADMINISTRATION OF DIABETIC MEDICATION. SKILLED NURSE TO INSTRUCT ON DIABETIC FOOT CARE AND MONITOR FOR SKIN LESIONS ON LOWER EXTREMITIES. BLOOD GLUCOSE TESTING 3 X A DAY. SKILLED NURSE TO ASSESS PATIENT/CAREGIVER ABILITY TO PERFORM AND RECORD BLOOD GLUCOSE TESTING ORDERED AND TO REPORT ABNORMAL FINDINGS TO PHYSICIAN. SKILLED NURSE MAY PERFORM BLOOD GLUCOSE TEST NEEDED. SKILLED NURSE TO REPORT TO PHYSICIAN BLOOD GLUCOSE READINGS GREATER THAN 350 OR LESS THAN 70. SKILLED NURSE TO INSTRUCT PATIENT ON IMPORTANCE OF HGBA1C MONITORING, KIDNEY FUNCTION TEST, EYE AND FOOT EXAMS. [code = DIABETES MANAGEMENT; SKILLED NURSE FOR INSTRUCTIONS OF DIABETIC CARE TO INCLUDE: DIET DIABETIC, SKIN CARE, SIGNS AND SYMPTOMS OF HYPO/HYPERGLYCEMIA, PROPER ADMINISTRATION OF DIABETIC MEDICATION. SKILLED NURSE TO INSTRUCT ON DIABETIC FOOT CARE AND MONITOR FOR SKIN LESIONS ON LOWER EXTREMITIES. BLOOD GLUCOSE TESTING 3 X A DAY. SKILLED NURSE TO ASSESS PATIENT/CAREGIVER ABILITY TO PERFORM AND RECORD BLOOD GLUCOSE TESTING ORDERED AND TO REPORT ABNORMAL FINDINGS TO PHYSICIAN. SKILLED NURSE MAY PERFORM BLOOD GLUCOSE TEST NEEDED. SKILLED NURSE TO REPORT TO PHYSICIAN BLOOD GLUCOSE READINGS GREATER THAN 350 OR LESS THAN 70. SKILLED NURSE TO INSTRUCT PATIENT ON IMPORTANCE OF HGBA1C MONITORING, KIDNEY FUNCTION TEST, EYE AND FOOT EXAMS.] Future Scheduled Test INSULIN AD MINISTRATION; CLIENT/CG/SKILLED NURSE TO ADMINISTER SQ INSULIN: LISPRO SLIDING SCALE 3 TIMES A DAY SUBCUTANEOUSLY, 150-199=1 UNIT, 200-249=4 UNITS, 250-299=6 UNITS, 300-349=8 UNITS, 350-399=10 UNITS. CALL MD IF >400. GLARGINE 30 UNITS SUBCUTANEOUSLY DAILY @ HS IF PATIENT/CAREGIVER UNABLE/UNWILLING . [code = INSULIN ADMINISTRATION; CLIENT/CG/SKILLED NURSE TO ADMINISTER SQ INSULIN: LISPRO SLIDING SCALE 3 TIMES A DAY SUBCUTANEOUSLY, 150-199=1 UNIT, 200-249=4 UNITS, 250-299=6 UNITS, 300-349=8 UNITS, 350-399=10 UNITS. CALL MD IF >400. GLARGINE 30 UNITS SUBCUTANEOUSLY DAILY @ HS IF PATIENT/CAREGIVER UNABLE/UNWILLING .] Future Scheduled Test FALL REDUC TION MANAGEMENT; NURSING TO PROVIDE SKILLED ASSESSMENT, EDUCATION, AND INTERVENTION TO IDENTIFY FALL RISK FACTORS SUCH MEDICATIONS THAT MAY CAUSE DIZZINESS, CHRONIC DISEASES, PSYCHOLOGICAL FACTORS, AND EMPOWER/EDUCATE PATIENT/CAREGIVER TO MINIMIZE FALL RISK. [code = FALL REDUCTION MANAGEMENT; NURSING TO PROVIDE SKILLED ASSESSMENT, EDUCATION, AND INTERVENTION TO IDENTIFY FALL RISK FACTORS SUCH MEDICATIONS THAT MAY CAUSE DIZZINESS, CHRONIC DISEASES, PSYCHOLOGICAL FACTORS, AND EMPOWER/EDUCATE PATIENT/CAREGIVER TO MINIMIZE FALL RISK.] Future Scheduled Test PHYSICAL T HERAPIST TO EVALUATE TREAT INDICATED [code = PHYSICAL THERAPIST TO EVALUATE TREAT INDICATED] Future Scheduled Test OCCUPATION AL THERAPIST TO EVALUATE TREAT INDICATED [code = OCCUPATIONAL THERAPIST TO EVALUATE TREAT INDICATED] Future Scheduled Test PRN VISITS ; NUMBER OF SN PRN VISITS: 2 SKILL TO PERFORM: CHF TEACHING FOR THE FOLLOWING REASONS: COMPLICATIONS OF CHF [code = PRN VISITS; NUMBER OF SN PRN VISITS: 2 SKILL TO PERFORM: CHF TEACHING FOR THE FOLLOWING REASONS: COMPLICATIONS OF CHF] Future Scheduled Test AGENCY MAY PERFORM A RESUMPTION OF CARE VISIT FOLLOWING ANY HOSPITAL ADMISSION. PHYSICAL THERAPY TO EVALUATE, ASSESS AND MONITOR, PROVIDE SKILLED THERAPEUTIC INTERVENTION, ACTIVITY, EDUCATION, AND TRAINING TO ADDRESS: TRANSFER TRAINING (PT) GAIT TRAINING (PT) NEUROMUSCULAR RE-EDUCATION / BALANCE RETRAINING (PT) THERAPEUTIC EXERCISES (PT) STAIR TRAINING (PT) ENERGY CONSERVATION (PT) OXYGEN SATURATION (PT). NOTIFY MD IF 02SATS BELOW 90% AFTER 10 MIN OF REST. PAIN MANAGEMENT (PT) PHYSICAL THERAPY TO ASSESS AND RECORD PATIENT REPORTED WEIGHT AND NOTIFY CM / BUNGY JUMP MASTER FOR MD NOTIFICATION FOR SIGNS AND SYMPTOMS OF EXACERBATION (2LB WEIGHT GAIN IN 1 DAY, 5LBS IN A WEEK OR 5 LBS OVER BASELINE); IDENTIFY FALL RISK FACTORS AND ESTABLISH HOME EXERCISE PROGRAM TO MINIMIZE FALL RISK. MAY TEACH THE PATIENT FLOOR RECOVERY WHEN CLINICALLY APPROPRIATE (PT) [code = AGENCY MAY PERFORM A RESUMPTION OF CARE VISIT FOLLOWING ANY HOSPITAL ADMISSION. PHYSICAL THERAPY TO EVALUATE, ASSESS AND MONITOR, PROVIDE SKILLED THERAPEUTIC INTERVENTION, ACTIVITY, EDUCATION, AND TRAINING TO ADDRESS: TRANSFER TRAINING (PT) GAIT TRAINING (PT) NEUROMUSCULAR RE-EDUCATION / BALANCE RETRAINING (PT) THERAPEUTIC EXERCISES (PT) STAIR TRAINING (PT) ENERGY CONSERVATION (PT) OXYGEN SATURATION (PT). NOTIFY MD IF 02SATS BELOW 90% AFTER 10 MIN OF REST. PAIN MANAGEMENT (PT) PHYSICAL THERAPY TO ASSESS AND RECORD PATIENT REPORTED WEIGHT AND NOTIFY CM / BUNGY JUMP MASTER FOR MD NOTIFICATION FOR SIGNS AND SYMPTOMS OF EXACERBATION (2LB WEIGHT GAIN IN 1 DAY, 5LBS IN A WEEK OR 5 LBS OVER BASELINE); IDENTIFY FALL RISK FACTORS AND ESTABLISH HOME EXERCISE PROGRAM TO MINIMIZE FALL RISK. MAY TEACH THE PATIENT FLOOR RECOVERY WHEN CLINICALLY APPROPRIATE (PT)] Goal 2022-11-24 Patient Goal - GET STRONGER Goal Provider Goal - A PLAN OF CARE WILL BE ESTABLISHED THAT MEETS THE PATIENTS NEEDS. PATIENT WILL DEMONSTRATE OXYGEN SATURATION WITHIN NORMAL LIMITS OR PATIENTS OPTIMAL LEVEL ESTABLISHED BY THE PHYSICIAN THROUGHOUT CARE. CHANGES TO CO-MORBID CONDITIONS AND ANY NEW CONDITIONS WILL BE IDENTIFIED AND REPORTED TO THE PHYSICIAN. Goal Provider Goal - PATIENT/CAREGIVER TO VERBALIZE, AND CONSISTENTLY DEMONSTRATE EFFECTIVE, SAFE MANAGEMENT OF MEDICATION INCLUDING KNOWLEDGE OF EFFECTIVENESS, POTENTIAL SIDE EFFECTS AND DRUG REACTIONS AND WHEN TO CONTACT THE APPROPRIATE CARE PROVIDER. PATIENT/CAREGIVER WILL BE ABLE TO VERBALIZE UNDERSTANDING OF MEDICATION REGIMEN AND ACCURATELY TAKE MEDICATIONS PRESCRIBED WITHOUT ADVERSE EFFECTS BY 01/08/23 Goal Provider Goal - PATIENT/CAREGIVER WILL VERBALIZE UNDERSTANDING OF SIGNS AND SYMPTOMS THAT PUT THE PATIENT AT RISK FOR HOSPITALIZATION /EMERGENCY ROOM VISITS, WHEN TO NOTIFY NURSE/PHYSICIAN OF COMPLICATIONS/DECLINE AND WHEN TO CALL 911. Goal Provider Goal - PATIENT / CAREGIVER WILL VERBALIZE/DEMONSTRATE UNDERSTANDING OF MEASURES TO MANAGE ALTERED CARDIOVASCULAR STATUS BY 01/08/23. Goal Provider Goal - PATIENT / CAREGIVER WILL VERBALIZE/DEMONSTRATE AN ABILITY TO ADHERE TO SELF-MANAGEMENT OF HF TO MINIMIZE COMPLICATIONS AND AVOID HOSPITALIZATION BY END OF EPISODE. Goal Provider Goal - PATIENT / CAREGIVER WILL VERBALIZE/DEMONSTRATE AN ABILITY TO ADHERE TO SELF-MANAGEMENT OF HTN TO MINIMIZE COMPLICATIONS AND AVOID HOSPITALIZATION BY END OF EPISODE. Goal Provider Goal - PATIENT / CAREGIVER WILL VERBALIZE/DEMONSTRATE AN ABILITY TO ADHERE TO SELF-MANAGEMENT OF ATRIAL FIBRILLATION TO MINIMIZE COMPLICATIONS AND AVOID HOSPITALIZATION BY END OF EPISODE. Goal Provider Goal - PATIENT / CAREGIVER WILL VERBALIZE/DEMONSTRATE UNDERSTANDING OF CARE AND MANAGEMENT OF PACEMAKER BY END OF EPISODE. Goal Provider Goal - PATIENT / CAREGIVER WILL VERBALIZE / DEMONSTRATE UNDERSTANDING OF PAIN CONTROL MEASURES BY 01/08/23 Goal Provider Goal - PATIENT / CAREGIVER WILL VERBALIZE / DEMONSTRATE AN ABILITY TO ADHERE TO SELF-MANAGEMENT OF DIABETES MANAGEMENT BY 01/08/23. Goal Provider Goal - INSULIN IS ADMINISTERED PER ORDERS BY 01/08/23. Goal Provider Goal - PATIENT/CAREGIVER ABLE TO IDENTIFY FALL RISK FACTORS AND IMPLEMENT STRATEGIES TO MINIMIZE FALL RISK. PATIENT/CAREGIVER WILL VERBALIZE/DEMONSTRATE AN ABILITY TO ADHERE TO FALL REDUCTION SELF MANAGEMENT AND LIFE-STYLE CHANGES AT DISCHARGE. PERSONAL GOAL(S) STATED BY PATIENT/CAREGIVER WILL BE MET BY 01/08/23. Goal Provider Goal - Goal Provider Goal - Goal Provider Goal - Goal Provider Goal - PT STG: PATIENT WILL DEMONSTRATE IMPROVED TRANSFERS FROM. MIN A TO INDEPENDENT WITHIN 5 WEEKS. PT LTG: PATIENT WILL DEMONSTRATE IMPROVED AMBULATION FROM MIN A TO INDEPENDENT WITHIN 9 WEEKS. PT LTG: PATIENT WILL DEMONSTRATE IMPROVED SAFETY NEGOTIATING STAIRS FROM MIN A TO INDEPENDENT WITHIN 9 WEEKS. PT STG: PATIENT WILL DEMONSTRATE INDEPENDENCE IN HOME EXERCISE PROGRAM OF STRENGTHENING EXERCISES BALANCE EXERCISES AND PROGRESSIVE AMBULATION PROGRAM TO ALLOW PATIENT TO CARRY OVER GAINS MADE DURING SKILLED HOME PHYSICAL THERAPY WITHIN 5 WEEKS. PT LTG: PATIENT WILL DEMONSTRATE INCREASED STRENGTH OF BILAT LES FROM 3+ /5 TO 4/5 WITHIN 9 WEEKS. IN ORDER TO RETURN TO INDEPENDENT COMMUNITY MOBILITY SKILLS. PT LTG: PATIENT / CAREGIVER WILL DEMONSTRATE UNDERSTANDING OF ENERGY CONSERVATION MEASURES, EVIDENCED BY INCREASED ACTIVITY TOLERANCE INCREASING FROM ASSISTED HOME MOBILITY TO INDEPENDENT COMMUNITY MOBILITY SKILLS WITHIN 9 WEEKS. PATIENT WILL MAINTAIN OXYGEN SATURATION WITHIN PHYSICIAN ORDERED PARAMETERS THROUGHOUT EPISODE OF CARE PT GOAL: PATIENT/CAREGIVER WILL VERBALIZE UNDERSTANDING OF PAIN MANAGEMENT BY DISCHARGE. PT GOAL: PATIENTS WEIGHT WILL REMAIN WELL CONTROLLED THROUGHOUT EPISODE OF CARE. PATIENT/CAREGIVER WILL DEMONSTRATE ADHERENCE TO FALL REDUCTION SELF MANAGEMENT TO MINIMIZE FALL RISK BY DISCHARGE. Reason for Visit MODERATE ASSIST WITH TRANSFER/AMBULATION/ADLS Encounters Start Date/Time End Date/Time Encounter Type Admission Type Attending [facility] Care Facility Care Department Encounter ID Discharge Date Discharge Status Discharge Condition Discharge Reason Percent Goals Met 2022-11-10 00:00:00 2022-11-24 00:00:00 Outpatient NEW ADMISSION [facility]ARTINEZ [facility] [id number] 2022-11-24 00:00:00 DISCHARGE TO HOME OR SELF CARE MODERATE ASSIST WITH TRANSFER/A MBULATION/ ADLS ONLY - D/C - FAILURE TO [facility] OF .
--- OUTSIDE RECORDS SUMMARY | 2024-08-16 10:42 | XMS_ITS | Clinical Summary ---
Author Organization Unknown Care Team Providers Care Shrimp Picker Name Role Phone LATOYA MARTINEZ, SYLVAIN Unavailable Unavailable REY GRANT, WELLINGTON Unavailable Unavailable Payers Payer Name Policy Type Policy Number Effective Date Expira tion Date [facility] [place] [id number] [place] [id number] ON DEMAND MEDICARE - [facility] BILL[facility] - [place] [id number] Problems Condition Name Condition Details Condition Category Status Onset Date Resolution Date Last Treatment Date Treating Clinician Comments OPIOID ABUSE, UNCOMPLICATE D Active 03-03 00:00: 00 ANEMIA, UNSPECIFIED Active 04-16 00:00: 00 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 Ordering Clinician Indication Dosage Frequency Signature (SIG) Comments Components Alcohol Pads 2020-08 002 00:00: 00 09-05 23:59 :00 No [id number] Per instruc tions TWO (2) TIMES A DAY TO 3 (THREE) TIMES A DAY Per instructio ns TWO (2) TIMES A DAY TO 3 (THREE) TIMES A DAY (route: topical) Med Classific ation: Antisepti cs and Disinfect ants Eliquis 5 mg tablet 03-11 00:00: 00 Yes [id number] 1 tablet TWO (2) TIMES A DAY 1 tablet TWO (2) TIMES A DAY (route: oral) Med Classific ation: Hematolog ical Agents ferrous sulfate 324 mg (65 mg iron) tablet,jessica yed release 2020-08 00:00: 00 03-11 23:59 :00 No [id number] Per instruc tions DAILY Per instructio ns DAILY (route: oral) Med Classific ation: Electroly te Balance-N utritiona l Products gabapentin 400 mg capsule 2020-08 00:00: 00 03-11 23:59 :00 No [id number] Per instruc tions 3 (THREE) TIMES A DAY Per instructio ns 3 (THREE) TIMES A DAY (route: oral) Med Classific ation: Central Nervous System Agents metoprolol succinate ER 25 mg tablet,exte nded release 24 hr 2020-08 00:00: 00 03-11 23:59 :00 No [id number] Per instruc tions DAILY Per instructio ns DAILY (route: oral) Med Classific ation: Cardiovas cular Therapy Agents magnesium oxide 400 mg (241.3 mg magnesium) tablet 2020-08 00:00: 00 03-11 23:59 :00 No [id number] Per instruc tions DAILY Per instructio ns DAILY (route: oral) Med Classific ation: Electroly te Balance-N utritiona l Products atorvastati n 40 mg tablet 2020-08 00:00: 00 03-11 23:59 :00 No [id number] Per instruc tions DAILY Per instructio ns DAILY (route: oral) Med Classific ation: Cardiovas cular Therapy Agents isosorbide dinitrate 30 mg tablet 2020-08 00:00: 00 03-11 23:59 :00 No [id number] Per instruc tions TWO (2) TIMES A DAY Per instructio ns TWO (2) TIMES A DAY (route: oral) Med Classific ation: Cardiovas cular Therapy Agents clopidogrel 75 mg tablet 03-11 00:00: 00 Yes [id number] 1 tablet DAILY 1 tablet DAILY (route: oral) Med Classific ation: Hematolog ical Agents torsemide 20 mg tablet 2020-08 00:00: 00 03-11 23:59 :00 No [id number] Per instruc tions DAILY Per instructio ns DAILY (route: oral) Med Classific ation: Cardiovas cular Therapy Agents pantoprazol e 20 mg tablet,jessica yed release 2020-08 0- 00:00: 00 03-11 23:59 :00 No [id number] Per instruc tions DAILY Per instructio ns DAILY (route: oral) Med Classific ation: Gastroint estinal Therapy Agents Lantus Solostar U-100 Insulin 100 unit/mL (3 mL) subcutaneou s pen 2020-08 0 00:00: 00 03-11 23:59 :00 No [id number] Per instruc tions DAILY Per instructio ns DAILY (route: subcutaneo us) Med Classific ation: Endocrine acetaminoph en 325 mg tablet 03-11 00:00: 00 Yes [id number] 2 tablet 3 TIMES DAILY 2 tablet 3 TIMES DAILY (route: oral) Med Classific ation: Analgesic , Anti-infl ammatory or Antipyret ic atorvastati n 80 mg tablet 03-11 00:00: 00 Yes [id number] 1 tablet BEDTIME 1 tablet BEDTIME (route: oral) Med Classific ation: Cardiovas cular Therapy Agents duloxetine 20 mg capsule,del ayed release 03-11 00:00: 00 Yes [id number] 2 capsule DAILY 2 capsule DAILY (route: oral) Med Classific ation: Central Nervous System Agents ferrous sulfate 325 mg (65 mg iron) tablet 03-11 00:00: 00 Yes [id number] 1 tablet DAILY 1 tablet DAILY (route: oral) Med Classific ation: Electroly te Balance-N utritiona l Products furosemide 20 mg tablet 03-11 00:00: 00 04-19 23:59 :00 No [id number] 1 tablet DAILY 1 tablet DAILY (route: oral) Med Classific ation: Cardiovas cular Therapy Agents gabapentin 100 mg capsule 03-11 00:00: 00 Yes [id number] 2 capsule 3 TIMES DAILY 2 capsule 3 TIMES DAILY (route: oral) Med Classific ation: Central Nervous System Agents Lantus Solostar U-100 Insulin 100 unit/mL (3 mL) subcutaneou s pen 03-11 00:00: 00 Yes [id number] 20 unit BEDTIME 20 unit BEDTIME (route: subcutaneo us) Med Classific ation: Endocrine melatonin 5 mg capsule 03-11 00:00: 00 Yes [id number] 1 capsule DAILY 1 capsule DAILY (route: oral) Med Classific ation: Central Nervous System Agents metoprolol succinate ER 50 mg tablet,exte nded release 24 hr 03-11 00:00: 00 Yes [id number] 1 tablet DAILY 1 tablet DAILY (route: oral) Med Classific ation: Cardiovas cular Therapy Agents mirtazapine 15 mg disintegrat ing tablet 03-11 00:00: 00 Yes [id number] 1 tablet BEDTIME 1 tablet BEDTIME (route: oral) Med Classific ation: Central Nervous System Agents multivitami n tablet 03-11 00:00: 00 Yes [id number] 1 tablet DAILY 1 tablet DAILY (route: oral) Med Classific ation: Electroly te Balance-N utritiona l Products Nitrostat 0.4 mg sublingual tablet 03-11 00:00: 00 Yes [id number] 1 tablet NEEDED 1 tablet NEEDED (route: sublingual ) Med Classific ation: Cardiovas cular Therapy Agents pantoprazol e 40 mg tablet,jessica yed release 03-11 00:00: 00 Yes [id number] 1 tablet DAILY 1 tablet DAILY (route: oral) Med Classific ation: Gastroint estinal Therapy Agents quetiapine 200 mg tablet 03-11 00:00: 00 11-02 23:59 :00 No [id number] 1 tablet BEDTIME 1 tablet BEDTIME (route: oral) Med Classific ation: Central Nervous System Agents Senna Laxative 8.6 mg tablet 03-11 00:00: 00 Yes [id number] 2 tablet DAILY 2 tablet DAILY (route: oral) Med Classific ation: Gastroint estinal Therapy Agents valsartan 40 mg tablet 03-11 00:00: 00 Yes [id number] 1 tablet DAILY 1 tablet DAILY (route: oral) Med Classific ation: Cardiovas cular Therapy Agents Lasix 40 mg tablet 8-29 00:00: 00 05-09 23:59 :00 No [id number] 1 tablet DAILY 1 tablet DAILY (route: oral) Med Classific ation: Cardiovas cular Therapy Agents Lasix 20 mg tablet 05-10 00:00: 00 11-02 23:59 :00 No [id number] 1 tablet DAILY 1 tablet DAILY (route: oral) Med Classific ation: Cardiovas cular Therapy Agents Seroquel 100 mg tablet 05-10 00:00: 00 11-02 23:59 :00 No [id number] 1 tablet BEDTIME 1 tablet BEDTIME (route: oral) Med Classific ation: Central Nervous System Agents Jardiance 10 mg tablet 2022-08 00:00: 00 Yes [id number] 1 tablet DAILY 1 tablet DAILY (route: oral) Med Classific ation: Endocrine Seroquel 100 mg tablet 17 00:00: 00 Yes [id number] 3 tablet BEDTIME 3 tablet BEDTIME (route: oral) Med Classific ation: Central Nervous System Agents torsemide 20 mg tablet 17 00:00: 00 Yes [id number] 1 tablet DAILY 1 tablet DAILY (route: oral) Med Classific ation: Cardiovas cular Therapy Agents isosorbide mononitrate ER 60 mg tablet,exte nded release 24 hr 2023-08 00:00: 00 Yes [id number] 1 tablet DAILY 1 tablet DAILY (route: oral) Med Classific ation: Cardiovas cular Therapy Agents Vital Signs Vital Name Observation Time Observation Value Commen ts Temperature 2024-08-14 08:46:00.000 97.9 [degF] Temperature 2024-07-09 10:16:00.000 97.6 [degF] Temperature 2024-07-05 09:05:00.000 97.9 [degF] BMI (%) 2024-08-14 08:46:00.000 36 kg/m2 Height 2024-08-14 08:46:00.000 64 [in_us] Pulse 2024-08-14 08:46:00.000 77 /min Pulse 2024-07-09 10:16:00.000 78 /min Pulse 2024-07-05 09:05:00.000 76 /min O2 Saturation (%) 2024-08-14 08:48:00.000 97 % O2 Saturation (%) 2024-07-09 10:18:00.000 98 % Respirations 2024-08-14 08:46:00.000 20 /min Respirations 2024-07-09 10:16:00.000 20 /min Respirations 2024-07-05 09:05:00.000 20 /min Weight (lbs) 2024-08-14 08:46:00.000 215 [lb_av] Weight (lbs) 2024-07-05 09:07:00.000 218 [lb_av] Systolic Blood Pressure 2024-08-14 08:46:00.000 136 mm [Hg] Systolic Blood Pressure 2024-07-09 10:16:00.000 134 mm [Hg] Systolic Blood Pressure 2024-07-05 09:05:00.000 127 mm [Hg] Diastolic Blood Pressure 2024-08-14 08:46:00.000 84 mm [Hg] Diastolic Blood Pressure 2024-07-09 10:16:00.000 78 mm [Hg] Diastolic Blood Pressure 2024-07-05 09:05:00.000 76 mm [Hg] Plan of Treatment Planned Activity Planned Date Details Comments Future Scheduled Test SKILLED NU RSE TO EVALUATE PATIENT, IDENTIFY PRIMARY AND CO-MORBID CONDITIONS CODED PER CODING GUIDELINES, AND DEVELOP PATIENT SPECIFIC PLAN OF CARE THAT INCLUDES PATIENT GOAL FOR HOME HEALTH. [code = SKILLED NURSE TO EVALUATE PATIENT, IDENTIFY PRIMARY AND CO-MORBID CONDITIONS CODED PER CODING GUIDELINES, AND DEVELOP PATIENT SPECIFIC PLAN OF CARE THAT INCLUDES PATIENT GOAL FOR HOME HEALTH.] Future Scheduled Test SKILLED NU RSE TO O/A OF PATIENTS MENTAL/BEHAVIORAL STATUS, ASSESS VITAL SIGNS EVERY VISIT ALLOW 2 PRNS FOR MEDICATION MANAGEMENT. [code = SKILLED NURSE TO O/A OF PATIENTS MENTAL/BEHAVIORAL STATUS, ASSESS VITAL SIGNS EVERY VISIT ALLOW 2 PRNS FOR MEDICATION MANAGEMENT.] Future Scheduled Test SKILLED NU RSE WILL MAINTAIN SITUATIONAL AWARENESS FOR SAFETY AND WILL NOTIFY CLINICAL BIG DATA PLATFORM ARCHITECT AND PHYSICIAN/PROVIDER WITH ANY CHANGE IN CONDITION. [code = SKILLED NURSE WILL MAINTAIN SITUATIONAL AWARENESS FOR SAFETY AND WILL NOTIFY CLINICAL BIG DATA PLATFORM ARCHITECT AND PHYSICIAN/PROVIDER WITH ANY CHANGE IN CONDITION.] Future Scheduled Test SKILLED NU RSE TO REVIEW PATIENT MEDICATIONS. INSTRUCT PATIENT/CAREGIVER ON MONITORING OF EFFECTIVENESS, ADVERSE DRUG REACTIONS, SIDE EFFECTS OF ALL MEDICATIONS (PRESCRIPTION/-OTC), AND HOW AND WHEN TO REPORT PROBLEMS. [code = SKILLED NURSE TO REVIEW PATIENT MEDICATIONS. INSTRUCT PATIENT/CAREGIVER ON MONITORING OF EFFECTIVENESS, ADVERSE DRUG REACTIONS, SIDE EFFECTS OF ALL MEDICATIONS (PRESCRIPTION/-OTC), AND HOW AND WHEN TO REPORT PROBLEMS.] Future Scheduled Test SKILLED NU RSE TO PRE-POUR MEDICATION PER MEDICATION LIST EVERY VISIT [code = SKILLED NURSE TO PRE-POUR MEDICATION PER MEDICATION LIST EVERY VISIT ] Future Scheduled Test SKILLED NU RSE FOR O/A AND SKILLED TEACHING RELATED TO MANAGEMENT OF DEPRESSIVE SYMPTOMS AND/OR DEPRESSION. SN TO REPORT SIGNIFICANT CHANGE IN DEPRESSIVE SYMPTOMS TO CLINICAL PROVIDER FOR EARLY INTERVENTION. [code = SKILLED NURSE FOR O/A AND SKILLED TEACHING RELATED TO MANAGEMENT OF DEPRESSIVE SYMPTOMS AND/OR DEPRESSION. SN TO REPORT SIGNIFICANT CHANGE IN DEPRESSIVE SYMPTOMS TO CLINICAL PROVIDER FOR EARLY INTERVENTION.] Future Scheduled Test SKILLED NU RSE TO ASSESS PATIENTS PSYCHOSOCIAL STATUS TO IDENTIFY POTENTIAL ISSUES THAT MAY COMPLICATE THE PROVISION OF THE PLAN OF CARE INCLUDING THE PATIENTS ABILITY TO ACCESS COMMUNITY RESOURCES AND PSYCHOSOCIAL SUPPORT SERVICES. [code = SKILLED NURSE TO ASSESS PATIENTS PSYCHOSOCIAL STATUS TO IDENTIFY POTENTIAL ISSUES THAT MAY COMPLICATE THE PROVISION OF THE PLAN OF CARE INCLUDING THE PATIENTS ABILITY TO ACCESS COMMUNITY RESOURCES AND PSYCHOSOCIAL SUPPORT SERVICES.] Future Scheduled Test SKILLED NU RSE FOR O/A OF CLIENT'S CURRENT DEGREE OF HOPELESSNESS AND PROVIDE THERAPEUTIC INTERVENTIONS AND TEACHING DESIGNED TO ENHANCE THE CLIENT'S WELL BEING. [code = SKILLED NURSE FOR O/A OF CLIENT'S CURRENT DEGREE OF HOPELESSNESS AND PROVIDE THERAPEUTIC INTERVENTIONS AND TEACHING DESIGNED TO ENHANCE THE CLIENT'S WELL BEING.] Future Scheduled Test SKILLED NU RSE FOR O/A, TEACHING, AND MANAGEMENT [code = SKILLED NURSE FOR O/A, TEACHING, AND MANAGEMENT ] Future Scheduled Test SKILLED NU RSE FOR O/A, TEACHING AND SELF-MANAGEMENT RELATED TO HEART FAILURE. INSTRUCT PATIENT/CAREGIVER ON SIGNS AND SYMPTOMS OF EXACERBATION TO REPORT. WEIGHT TO BE OBTAINED EVERY VISIT AND WEIGHT GAIN OF 3 LBS OVERNIGHT OR 5 LBS IN 1 WEEK TO BE REPORTED TO PHYSICIAN. IF UNABLE TO WEIGH PATIENT, SKILLED NURSE TO OBTAIN MEASUREMENT OF IN CM AT EACH VISIT AND REPORT AN INCREASE OF 1 CM TO PHYSICIAN. [code = SKILLED NURSE FOR O/A, TEACHING AND SELF-MANAGEMENT RELATED TO HEART FAILURE. INSTRUCT PATIENT/CAREGIVER ON SIGNS AND SYMPTOMS OF EXACERBATION TO REPORT. WEIGHT TO BE OBTAINED EVERY VISIT AND WEIGHT GAIN OF 3 LBS OVERNIGHT OR 5 LBS IN 1 WEEK TO BE REPORTED TO PHYSICIAN. IF UNABLE TO WEIGH PATIENT, SKILLED NURSE TO OBTAIN MEASUREMENT OF IN CM AT EACH VISIT AND REPORT AN INCREASE OF 1 CM TO PHYSICIAN.] Future Scheduled Test SKILLED NU RSE TO PERFORM AND RECORD BLOOD SUGAR READING EVERY VISIT AND PRN FOR SIGNS AND SYMPTOMS OF HYPO/HYPERGLYCEMIA. [code = SKILLED NURSE TO PERFORM AND RECORD BLOOD SUGAR READING EVERY VISIT AND PRN FOR SIGNS AND SYMPTOMS OF HYPO/HYPERGLYCEMIA.] Goal 2023-05-09 Patient Goal - P T HAS BEEN HOMELESS AND SHE DOES NOT WANT A REPEAT THIS HAS STRESSED HER QUITE A GREAT DEAL LEADING TO CHEST PAINS, ANXIETY AND MAJOR DEPRESSION Goal 2023-07-05 Patient Goal - P T HAS BEEN HOMELESS AND SHE DOES NOT WANT A REPEAT THIS HAS STRESSED HER QUITE A GREAT DEAL LEADING TO CHEST PAINS, ANXIETY AND MAJOR DEPRESSION Goal 2023-09-05 Patient Goal - P T HAS BEEN HOMELESS AND SHE DOES NOT WANT A REPEAT THIS HAS STRESSED HER QUITE A GREAT DEAL LEADING TO CHEST PAINS, ANXIETY AND MAJOR DEPRESSION Goal 2023-11-03 Patient Goal - P T HAS BEEN HOMELESS AND SHE DOES NOT WANT A REPEAT THIS HAS STRESSED HER QUITE A GREAT DEAL LEADING TO CHEST PAINS, ANXIETY AND MAJOR DEPRESSION Goal 2024-01-02 Patient Goal - P T HAS BEEN HOMELESS AND SHE DOES NOT WANT A REPEAT THIS HAS STRESSED HER QUITE A GREAT DEAL LEADING TO CHEST PAINS, ANXIETY AND MAJOR DEPRESSION Goal 2024-03-01 Patient Goal - P T HAS BEEN HOMELESS AND SHE DOES NOT WANT A REPEAT THIS HAS STRESSED HER QUITE A GREAT DEAL LEADING TO CHEST PAINS, ANXIETY AND MAJOR DEPRESSION Goal 2024-04-30 Patient Goal - P T HAS BEEN HOMELESS AND SHE DOES NOT WANT A REPEAT THIS HAS STRESSED HER QUITE A GREAT DEAL LEADING TO CHEST PAINS, ANXIETY AND MAJOR DEPRESSION Goal 2024-06-28 Patient Goal - P T HAS BEEN HOMELESS AND SHE DOES NOT WANT A REPEAT THIS HAS STRESSED HER QUITE A GREAT DEAL LEADING TO CHEST PAINS, ANXIETY AND MAJOR DEPRESSION Goal Patient Goal - P T HAS BEEN HOMELESS AND SHE DOES NOT WANT A REPEAT THIS HAS STRESSED HER QUITE A GREAT DEAL LEADING TO CHEST PAINS, ANXIETY AND MAJOR DEPRESSION Goal Provider Goal - A PLAN OF CARE WILL BE ESTABLISHED THAT MEETS PATIENT'S DETENTION NEEDS AND INCLUDES PATIENT GOAL FOR HOME HEALTH. Goal Provider Goal - ALTERED MENTAL/BEHAVIORAL STATUS WILL BE IDENTIFIED PROMPTLY AND INTERVENTION INITIATED QUICKLY TO MINIMIZE ASSOCIATED RISKS THROUGHOUT CERTIFICATION PERIOD. Goal Provider Goal - PATIENT WILL REMAIN SAFE IN THE COMMUNITY AND WILL BE FREE OF DANGER TO SELF AND OTHERS THROUGHOUT THE CERTIFICATION PERIOD. Goal Provider Goal - PATIENT/CAREGIVER WILL VERBALIZE UNDERSTANDING OF EDUCATION PROVIDED ON MEDICATIONS BY THE END OF THE CERTIFICATION PERIOD. Goal Provider Goal - PATIENT WILL COMPLY WITH MEDICATION WHEN SKILLED NURSE PRE-POURS MEDICATION THROUGHOUT CERTIFICATION PERIOD. Goal Provider Goal - PATIENT WILL REMAIN SAFE WITHOUT DECOMPENSATION IN DEPRESSIVE CONDITION, WHILE MAINTAINING OPTIMAL LEVEL OF MENTAL HEALTH AND WELL BEING THROUGHOUT CERTIFICATION PERIOD. Goal Provider Goal - PSYCHOSOCIAL NEEDS WILL BE IDENTIFIED AND PLAN IMPLEMENTED TO MINIMIZE RISK THROUGHOUT CERTIFICATION PERIOD. Goal Provider Goal - PATIENT WILL VERBALIZE OWN ASSOCIATION OF FEELINGS OF HOPELESSNESS, AND 3 THERAPEUTIC TECHNIQUES TO DECREASE THESE FEELINGS BY THE END OF THIS CERTIFICATION. Goal Provider Goal - PATIENT/CAREGIVER WILL VERBALIZE/DEMONSTRATE MANAGEMENT OF CARDIAC DISEASE PROCESS AND EXACERBATIONS WILL BE IDENTIFIED AND PROMPTLY REPORTED THROUGHOUT THE CERTIFICATION PERIOD. Goal Provider Goal - PATIENT/CAREGIVER WILL VERBALIZE/DEMONSTRATE KNOWLEDGE AND MANAGEMENT OF HEART FAILURE DISEASE PROCESS BY END OF EPISODE. Goal Provider Goal - BLOOD SUGAR READING WILL BE OBTAINED ORDERED THROUGHOUT CERTIFICATION PERIOD. Progress Notes Progress Notes <paragraph>[Visit Date: 2023 by WELLINGTON LE RN]:</paragraph><paragraph>GLORY NOTE PT HAD A SHORT HOSPITALIZATION AT [facility] WITH COVID PNEUMONIA. SHE ALSO IMMUNALCOMPROMISED DUE TO CHRONIC CARDIAC ISSUES, CHF DIABETES. WHILE AT THE HOSPITALS, SHE FELL TWICE. SHE WAS NOT ABLE TO AMBULATE SAFELY. SHE WAS TAKEN TO A REHAB IN A SNF WHERE SHE RECEIVED PT AND OT. SHE IS NOW WALKING INDOORS WITH INDEPENDENTLY, SHE USES A WALKER ON NEEDED BASIS. SHE USES A WHEELCHAIR OUTDOORS. PT MOOD IS WITHDRAWN AND DEPRESSED. SHE IS WORRIED ABOUT HOUSING. SHE IS CURRENTLY IN AN ADULT FOSTER HOME. THE SNAG GRINDER OF THE HOUSE IS SELLING IT AND ENDING THE ARRANGEMENT. PT IS TO FIND ALTERNATIVE HOUSING. HER SON IS LOOKING FOR AN APARTMENT. PT HAS VERBALIZED DESIRE TO BE IN HER OWN APARTMENT AND HAVE SOME INDEPENDENCE. SHE REMAINS UNSAFE TO BE ALONE, ALTHOUGH SHE WOULD DO WELL WITH SOME ASSITANCE AND WITH THE RIGHT EQUIPMENTS AND SERVICES. ALL VITALS CHECKED. SHE DENIED CHEST PAINS, NO RESPIRATORY DISTRESS NOTED. BLOOD SUGAR REMAINS HIGH. PT FORGOT TO TAKE HER INSULIN LAST NIGHT. SN RESUMED PT/CG BS INSULIN SCHEDULE. GAS FITTER APPRENTICE IS ALSO PT'S LEGAL HEALTHCARE PROXY. SHE PROVIDES MEALS, AND RWMINDS PT TO TAKE HER PREPOURED MEDICATIONS. BS SCHEDULE RESUMED AND INSULINS SITUATION SORTED OUT. SAFETY MEASURES REINFORCED. PT INSTRUCTED TO RESUME HER DAILY MOBILITY EXERCISES . MEDS PREPOURED FOR THE HOLIDAY. PT WILL BE SEEN ON TUESDAY. PCP OFFICE CONTACTED FOR NURSING ORDERS.</paragraph> Encounters Start Date/Time End Date/Time Encounter Type Admission Type Attending Clinicians [facility] Facility Care Department Encounter ID Discharge Date Discharge Status Discharge Condition Discharge Reason Percent Goals Met 2023-03-11 00:00:00 2024-08-31 00:00:00 Outpatient RECERTIFIC [facility] [id number] 20.00
--- OUTSIDE RECORDS SUMMARY | 2024-08-16 10:42 | XMS_ITS | Clinical Summary ---
Author Organization Unknown Care Team Providers Care Car Starter Name Role Phone LATOYA MARTINEZ, SYLVAIN Unavailable Unavailable REY GRANT, WELL[place] Unavailable Unavailable Payers Payer Name Policy Type Policy Number Effective Date Expira tion Date [facility] [place] [id number] [place] [id number] ON DEMAND MEDICARE - [facility] BILLING - ABN [id number] Problems Condition Name Condition Details Condition Category [...] 002 00:00: 00 09-05 23:59 :00 No [id number] Per instruc tions TWO (2) TIMES A DAY TO 3 (THREE) TIMES A DAY Per instructio ns TWO (2) TIMES A DAY TO 3 (THREE) TIMES A DAY (route: topical) Med Classific ation: Antisepti cs and Disinfect ants Eliquis 5 mg tablet 03-11 00:00: 00 Yes [id number] 1 tablet TWO (2) TIMES A DAY 1 tablet TWO (2) TIMES A DAY (route: oral) Med Classific ation: Hematolog ical Agents ferrous sulfate 324 mg (65 mg iron) tablet,jessica yed release 2020-08 00:00: 00 03-11 23:59 :00 No [id number] Per instruc tions DAILY Per instructio ns DAILY (route: oral) Med Classific ation: Electroly te Balance-N utritiona l Products gabapentin 400 mg capsule 2020-08 00:00: 00 03-11 23:59 :00 No [id number] Per instruc tions 3 (THREE) TIMES A DAY Per instructio ns 3 (THREE) TIMES A DAY (route: oral) Med Classific ation: Central Nervous System Agents metoprolol succinate ER 25 mg tablet,exte nded release 24 hr 2020-08 00:00: 00 03-11 23:59 :00 No [id number] Per instruc tions DAILY Per instructio ns DAILY (route: oral) Med Classific ation: Cardiovas cular Therapy Agents magnesium oxide 400 mg (241.3 mg magnesium) tablet 2020-08 00:00: 00 03-11 23:59 :00 No [id number] Per instruc tions DAILY Per instructio ns DAILY (route: oral) Med Classific ation: Electroly te Balance-N utritiona l Products atorvastati n 40 mg tablet 2020-08 00:00: 00 03-11 23:59 :00 No [id number] Per instruc tions DAILY Per instructio ns DAILY (route: oral) Med Classific ation: Cardiovas cular Therapy Agents isosorbide dinitrate 30 mg tablet 2020-08 00:00: 00 03-11 23:59 :00 No [id number] Per instruc tions TWO (2) TIMES A DAY Per instructio ns TWO (2) TIMES A DAY (route: oral) Med Classific ation: Cardiovas cular Therapy Agents clopidogrel 75 mg tablet 03-11 00:00: 00 Yes [id number] 1 tablet DAILY 1 tablet DAILY (route: oral) Med Classific ation: Hematolog ical Agents torsemide 20 mg tablet 2020-08 00:00: 00 03-11 23:59 :00 No [id number] Per instruc tions DAILY Per instructio ns DAILY (route: oral) Med Classific ation: Cardiovas cular Therapy Agents pantoprazol e 20 mg tablet,jessica yed release 2020-08 0- 00:00: 00 03-11 23:59 :00 No [id number] Per instruc tions DAILY Per instructio ns DAILY (route: oral) Med Classific ation: Gastroint estinal Therapy Agents Lantus Solostar U-100 Insulin 100 unit/mL (3 mL) subcutaneou s pen 2020-08 0 00:00: 00 03-11 23:59 :00 No [id number] Per instruc tions DAILY Per instructio ns DAILY (route: subcutaneo us) Med Classific ation: Endocrine acetaminoph en 325 mg tablet 03-11 00:00: 00 Yes [id number] 2 tablet 3 TIMES DAILY 2 tablet 3 TIMES DAILY (route: oral) Med Classific ation: Analgesic , Anti-infl ammatory or Antipyret ic atorvastati n 80 mg tablet 03-11 00:00: 00 Yes [id number] 1 tablet BEDTIME 1 tablet BEDTIME (route: oral) Med Classific ation: Cardiovas cular Therapy Agents duloxetine 20 mg capsule,del ayed release 03-11 00:00: 00 Yes [id number] 2 capsule DAILY 2 capsule DAILY (route: oral) Med Classific ation: Central Nervous System Agents ferrous sulfate 325 mg (65 mg iron) tablet 03-11 00:00: 00 Yes [id number] 1 tablet DAILY 1 tablet DAILY (route: oral) Med Classific ation: Electroly te Balance-N utritiona l Products furosemide 20 mg tablet 03-11 00:00: 00 04-19 23:59 :00 No [id number] 1 tablet DAILY 1 tablet DAILY (route: oral) Med Classific ation: Cardiovas cular Therapy Agents gabapentin 100 mg capsule 03-11 00:00: 00 Yes [id number] 2 capsule 3 TIMES DAILY 2 capsule 3 TIMES DAILY (route: oral) Med Classific ation: Central Nervous System Agents Lantus Solostar U-100 Insulin 100 unit/mL (3 mL) subcutaneou s pen 03-11 00:00: 00 Yes [id number] 20 unit BEDTIME 20 unit BEDTIME (route: subcutaneo us) Med Classific ation: Endocrine melatonin 5 mg capsule 03-11 00:00: 00 Yes [id number] 1 capsule DAILY 1 capsule DAILY (route: oral) Med Classific ation: Central Nervous System Agents metoprolol succinate ER 50 mg tablet,exte nded release 24 hr 03-11 00:00: 00 Yes [id number] 1 tablet DAILY 1 tablet DAILY (route: oral) Med Classific ation: Cardiovas cular Therapy Agents mirtazapine 15 mg disintegrat ing tablet 03-11 00:00: 00 Yes [id number] 1 tablet BEDTIME 1 tablet BEDTIME (route: oral) Med Classific ation: Central Nervous System Agents multivitami n tablet 03-11 00:00: 00 Yes [id number] 1 tablet DAILY 1 tablet DAILY (route: oral) Med Classific ation: Electroly te Balance-N utritiona l Products Nitrostat 0.4 mg sublingual tablet 03-11 00:00: 00 Yes [id number] 1 tablet NEEDED 1 tablet NEEDED (route: sublingual ) Med Classific ation: Cardiovas cular Therapy Agents pantoprazol e 40 mg tablet,jessica yed release 03-11 00:00: 00 Yes [id number] 1 tablet DAILY 1 tablet DAILY (route: oral) Med Classific ation: Gastroint estinal Therapy Agents quetiapine 200 mg tablet 03-11 00:00: 00 11-02 23:59 :00 No [id number] 1 tablet BEDTIME 1 tablet BEDTIME (route: oral) Med Classific ation: Central Nervous System Agents Senna Laxative 8.6 mg tablet 03-11 00:00: 00 Yes [id number] 2 tablet DAILY 2 tablet DAILY (route: oral) Med Classific ation: Gastroint estinal Therapy Agents valsartan 40 mg tablet 03-11 00:00: 00 Yes [id number] 1 tablet DAILY 1 tablet DAILY (route: oral) Med Classific ation: Cardiovas cular Therapy Agents Lasix 40 mg tablet 8-29 00:00: 00 05-09 23:59 :00 No [id number] 1 tablet DAILY 1 tablet DAILY (route: oral) Med Classific ation: Cardiovas cular Therapy Agents Lasix 20 mg tablet 05-10 00:00: 00 11-02 23:59 :00 No [id number] 1 tablet DAILY 1 tablet DAILY (route: oral) Med Classific ation: Cardiovas cular Therapy Agents Seroquel 100 mg tablet 05-10 00:00: 00 11-02 23:59 :00 No [id number] 1 tablet BEDTIME 1 tablet BEDTIME (route: oral) Med Classific ation: Central Nervous System Agents Jardiance 10 mg tablet 2022-08 00:00: 00 Yes [id number] 1 tablet DAILY 1 tablet DAILY (route: oral) Med Classific ation: Endocrine Seroquel 100 mg tablet 17 00:00: 00 Yes [id number] 3 tablet BEDTIME 3 tablet BEDTIME (route: oral) Med Classific ation: Central Nervous System Agents torsemide 20 mg tablet 17 00:00: 00 Yes [id number] 1 tablet DAILY 1 tablet DAILY (route: oral) Med Classific ation: Cardiovas cular Therapy Agents isosorbide mononitrate ER 60 mg tablet,exte nded release 24 hr 2023-08 00:00: 00 Yes [id number] 1 tablet DAILY 1 tablet DAILY (route: [...] AWARENESS FOR SAFETY AND WILL NOTIFY CLINICAL HEBREW CANTOR AND PHYSICIAN/PROVIDER WITH ANY CHANGE IN CONDITION. [code = SKILLED NURSE WILL MAINTAIN SITUATIONAL AWARENESS FOR SAFETY AND WILL NOTIFY CLINICAL HEBREW CANTOR AND PHYSICIAN/PROVIDER WITH ANY CHANGE IN CONDITION.] [...] CARE WILL BE ESTABLISHED THAT MEETS PATIENT'S SENIOR LIVING NEEDS AND INCLUDES PATIENT GOAL FOR HOME [...] NOTE PT HAD A SHORT HOSPITALIZATION AT [facility] WITH COVID PNEUMONIA. SHE ALSO IMMUNALCOMPROMISED DUE [...] CURRENTLY IN AN ADULT FOSTER HOME. THE [employer]ET OF THE HOUSE IS SELLING IT AND [...] NIGHT. SN RESUMED PT/CG BS INSULIN SCHEDULE. 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 SHE [...] Date/Time Encounter Type Admission Type Attending Clinicians [facility] Facility Care Department Encounter ID Discharge Date Discharge Status Discharge Condition Discharge Reason Percent Goals Met 2023-03-11 00:00:00 2024-08-31 00:00:00 Outpatient RECERTIFIC [place] [facility] [id number] 20.00
--- OUTSIDE RECORDS SUMMARY | 2024-08-16 10:42 | XMS_ITS | Clinical Summary ---
Author Organization Unknown Care Team Providers Care Blocklayer Name Role Phone DARÍO MULTIMED[employer] JOURNALIST, ABE Unavailable Unavailable JUAN RN, ARIANA Unavailable Unavailable Payers Payer Name Policy Type Policy Number Effective Date Expira tion Date HUMANDeborah.MA2.PPO.C.AUTH [id number] Problems Condition Name Condition Details Condition Category [...] 11-09 00:00: 00 ATHSCL HEART DISEASE OF [place] COR ART W OTH ANG PCTRS Active [...] 325 mg tablet 11-10 00:00: 00 Yes [id number] FEVER/PAIN 2 tablet EVERY 4 HOURS 2 tablet EVERY 4 HOURS (route: oral) Med Classific ation: Analgesic , Anti-infl ammatory or Antipyret ic atorvastati n 40 mg tablet 11-10 00:00: 00 Yes [id number] HLD 1 tablet BEDTIME 1 tablet BEDTIME (route: oral) Med Classific ation: Cardiovas cular Therapy Agents clopidogrel 75 mg tablet 11-10 00:00: 00 Yes [id number] AFIB 1 tablet DAILY 1 tablet DAILY (route: oral) Med Classific ation: Hematolog ical Agents duloxetine 20 mg capsule,del ayed release 11-10 00:00: 00 Yes [id number] DEPRESSION 2 capsule DAILY 2 capsule DAILY (route: oral) Med Classific ation: Central Nervous System Agents Eliquis 5 mg tablet 11-10 00:00: 00 Yes [id number] AFIB 1 tablet 2 TIMES DAILY 1 tablet 2 TIMES DAILY (route: oral) Med Classific ation: Hematolog ical Agents ferrous sulfate 325 mg (65 mg iron) tablet 11-10 00:00: 00 Yes [id number] SUPPLEMENT 1 tablet DAILY 1 tablet DAILY (route: oral) Med Classific ation: Electroly te Balance-N utritiona l Products furosemide 20 mg tablet 11-10 00:00: 00 Yes [id number] EDEMA 1 tablet DAILY 1 tablet DAILY (route: oral) Med Classific ation: Cardiovas cular Therapy Agents gabapentin 100 mg capsule 11-10 00:00: 00 Yes [id number] PAIN 2 capsule 3 TIMES DAILY 2 capsule 3 TIMES DAILY (route: oral) Med Classific ation: Central Nervous System Agents insulin glargine (U-100) 100 unit/mL (3 mL) subcutaneou s pen 11-10 00:00: 00 Yes [id number] DM 30 unit BEDTIME 30 unit BEDTIME (route: subcutaneo us) Med Classific ation: Endocrine insulin lispro (U-100) 100 unit/mL subcutaneou s pen 11-10 00:00: 00 Yes [id number] BS 150-199 1 unit DIRECTED 1 unit [facility]ED [facility] Med Classific ation: Endocrine insulin lispro (U-100) 100 unit/mL subcutaneou s pen 11-10 00:00: 00 Yes [id number] BS 200-249 4 unit DIRECTED 4 unit DIRECTED (route: subcutaneo us) Med Classific ation: Endocrine insulin lispro (U-100) 100 unit/mL subcutaneou s pen 11-10 00:00: 00 Yes [id number] BS 250-299 6 unit DIRECTED 6 unit DIRECTED (route: subcutaneo us) Med Classific ation: Endocrine insulin lispro (U-100) 100 unit/mL subcutaneou s pen 11-10 00:00: 00 Yes [id number] BS 300-349 8 unit DIRECTED 8 unit DIRECTED ([facility] Med Classific ation: Endocrine insulin lispro (U-100) 100 unit/mL subcutaneou s pen 11-10 00:00: 00 Yes [id number] BS 350-399 10 unit DIRECTED 10 unit DIRECTED ([facility] Med Classific ation: Endocrine isosorbide dinitrate 30 mg tablet 11-10 00:00: 00 Yes [id number] HTN 2 tablet 2 TIMES DAILY 2 tablet 2 TIMES DAILY (route: oral) Med Classific ation: Cardiovas cular Therapy Agents lidocaine 5 % topical patch 11-10 00:00: 00 Yes [id number] PAIN 1 adhesiv e patch, medicat ed DAILY 1 adhesive patch, medicated DAILY (route: topical) Med Classific ation: Dermatolo gical melatonin 5 mg tablet 11-10 00:00: 00 Yes [id number] INSOMNIA 1 tablet DAILY 1 tablet DAILY (route: oral) Med Classific ation: Central Nervous System Agents metoprolol succinate ER 50 mg tablet,exte nded release 24 hr 11-10 00:00: 00 Yes [id number] HTN 1 tablet DAILY 1 tablet DAILY (route: oral) Med Classific ation: Cardiovas cular Therapy Agents miconazole nitrate 2 % topical powder 11-10 00:00: 00 Yes [id number] RASH Per instruc tions DAILY Per instructio ns DAILY (route: topical) Med Classific ation: Dermatolo gical midodrine 5 mg tablet 11-10 00:00: 00 Yes [id number] HYPOTENSION 1 tablet 3 TIMES DAILY 1 tablet 3 TIMES DAILY (route: oral) Med Classific ation: Cardiovas cular Therapy Agents mirtazapine 15 mg tablet 11-10 00:00: 00 Yes [id number] DEPRESSION 1 tablet DAILY 1 tablet DAILY (route: oral) Med Classific ation: Central Nervous System Agents multivitami n with minerals tablet 11-10 00:00: 00 Yes [id number] SUPPLEMENT 1 tablet DAILY 1 tablet DAILY (route: oral) Med Classific ation: Electroly te Balance-N utritiona l Products Nitrostat 0.4 mg sublingual tablet 11-10 00:00: 00 Yes [id number] CHEST PAIN 1 tablet EVERY 5 MINUTES TIMES 3 1 tablet EVERY 5 MINUTES TIMES 3 (route: sublingual ) Med Classific ation: Cardiovas cular Therapy Agents pantoprazol e 40 mg tablet,jessica yed release 11-10 00:00: 00 Yes [id number] GERD 1 tablet DAILY 1 tablet DAILY (route: oral) Med Classific ation: Gastroint estinal Therapy Agents Saccharomyc es boulardii 250 mg capsule 11-10 00:00: 00 Yes [id number] PROBIOTIC 1 capsule 2 TIMES DAILY 1 capsule 2 TIMES DAILY (route: oral) Med Classific ation: Gastroint estinal Therapy Agents sennosides 8.6 mg-docusate sodium 50 mg tablet 11-10 00:00: 00 Yes [id number] constipatio n 2 tablet DAILY 2 tablet [...] PATIENT REPORTED WEIGHT AND NOTIFY CM / YOUTH COURT JUDGE FOR MD NOTIFICATION FOR SIGNS AND SYMPTOMS [...] PATIENT REPORTED WEIGHT AND NOTIFY CM / YOUTH COURT JUDGE FOR MD NOTIFICATION FOR SIGNS AND SYMPTOMS [...] End Date/Time Encounter Type Admission Type Attending [facility] Care Facility Care Department Encounter ID Discharge Date Discharge Status Discharge Condition Discharge Reason Percent Goals Met 2022-11-10 00:00:00 2022-11-24 00:00:00 Outpatient NEW ADMISSION ARIANA MARTINEZ [facility] [id number] 2022-11-24 00:00:00 DISCHARGE TO HOME OR SELF CARE MODERATE ASSIST WITH TRANSFER/A MBULATION/ ADLS ONLY - D/C - FAILURE TO MAINTAIN SERVICES OF .
--- NOTE | 2024-08-16 11:28 | A.OFFPC_ITS ---
Vital Signs 08/16/24 11:33 Height 5 ft 3 in Weight 210 lb 6 oz BMI 37.3 BP 120/62 Blood Pressure Location Lt brachial Position Sitting Respiration 16 Pulse 83 Pulse Source Pulse Oximeter Temp 97.2 F Temp Source Oral Pulse Oximetry (%) 97 Oxygen Delivery Method Room Air Intake Visit Reasons: TCM Intake Note: hospital discharge follow up from [facility] Allergies Cephalosporins [CEPHALOSPORINS] Allergy (Intermediate, Verified 08/16/24 11:31) RASH oxycodone [From Tylox] Allergy (Intermediate, Verified 08/16/24 11:31) RASH Sulfa (Sulfonamide Antibiotics) [SULFA (SULFONAMIDE ANTIBIOTICS)] Allergy (Intermediate, Verified 08/16/24 11:31) RASH lisinopril Adverse Reaction (Severe, Verified 08/16/24 11:31) contraindication sulfamethoxazole [From Bactrim] Adverse Reaction (Severe, Verified 08/16/24 11:31) Rash trimethoprim [From Bactrim] Adverse Reaction (Severe, Verified 08/16/24 11:31) Rash naproxen [NAPROXEN] Adverse Reaction (Intermediate, Verified 08/16/24 11:31) contraindication Medication List - Last Reconciled 08/16/24 by Monroe Garcaí MD acetaminophen 325 mg PO QID PRN apixaban (Eliquis) 5 mg PO BID 30 days atorvastatin 80 mg (2 x 40 mg) PO DAILY 30 days blood sugar diagnostic (FreeStyle Lite Strips) As directed TID blood-glucose meter (FreeStyle Lite Meter kit) As directed carbidopa-levodopa 25-100 mg 1 tab PO BID 30 days [chair lift Use chair lift daily as directed.; (height 5'3'') (weight 218 lbs) ] chair, wheel (Wheel chair) Lightweight Wheel Chair. Daily, As directed, 999 days clopidogrel 75 mg PO DAILY 30 days clotrimazole 1% 1 appl topical BID 2 weeks compr.stocking,knee,long,large As directed, 90 days [diabetic shoes with insoles for heel pain and peripheral neuropathy] diaper,brief,adult,disposable (Disposable Brief Jumbo X-Large) As directed duloxetine 40 mg (2 x 20 mg) PO QAM empagliflozin (Jardiance) 25 mg PO DAILY ferrous fumarate 325 mg PO DAILY 30 days gabapentin 200 mg (2 x 100 mg) PO TID 30 days insulin aspart U-100 (Novolog FlexPen U-100 Insulin aspart) subcutaneously use as directed; 151-200 Give 2 units 201-250 Give 4 units 251-300 Give 6 units 301- 350 Give 8 units 351-400 Give 10 units 401-450 Give 12 units > 450 Give 12 units & call MD 30 days insulin glargine (Lantus Solostar U-100 Insulin) 54 units (0.54 mL) subcut DAILY 30 days lancets (FreeStyle Lancets) As directed melatonin 5 mg PO BEDTIME PRN 30 days metoprolol succinate ER 50 mg (2 x 25 mg) PO DAILY 30 days mirtazapine 15 mg PO BEDTIME 30 days miscellaneous medical supply Lift Chair. Daily As directed, 999 days rhfjikoq-ltzo-LF-calcium-mins 9 mg iron-400 mcg 1 tab PO DAILY 30 days nitroglycerin (Nitrostat) 0.4 mg sublingual Q5M PRN 1 month pantoprazole 40 mg (2 x 20 mg) PO DAILY 30 days pen needle, diabetic (BD Ultra-Fine Micro Pen Needle) To treat BS 4 times a day, As directed, 90 days quetiapine 300 mg (3 x 100 mg) PO BEDTIME 90 days sennosides-docusate sodium 8.6-50 mg (Senexon-S) 1 tab-cap PO BEDTIME spironolactone 25 mg PO DAILY torsemide 30 mg (1.5 x 20 mg) PO DAILY 90 days valsartan 40 mg PO DAILY 30 days walker (Ultra-Light Rollator misc) Rollator?walker?with?seat?and?brakes.??Daily?As directed, 999 days Tobacco use date assessed: 02/01/24 Dental Screening Dental Screen Date: 02/01/24 HPI TCM HPI Details 73 y/o female presents to f[facility]u [facility] for chest pain. Described pain as stabbing L sided chest pain. Chest x-ray revealed no pneumonia or acute findings. Labs had been notable for BNP 57, initial troponin 16. Pt was hypoxic and required supplemental O2s. She had also been extremely weak and could not ambulate. 73 y/o female, h/o CAD, Afib, CHF presen bruno to [facility] w/ Dyspnea, L pleuritic chest pain, fatigue, weakness on 07/12/2024 and diagnosed w/ Covid 19 infection with PNA, Sepsis, Resp failure, LUDY. Started on IV Abx (Ceftriaxone & Doxycycline), Steroids and fluids. Course complicated by some costipation but other shha continued to improve & was d/c to rehab on 07/24/2024. At rehab x about 10 days. Pt notes she has been breathing easier. Does report deconditioning/LE weakness. HPI Comments History of Present Illness Details Documentation assistance for Monroe García MD, was provided by Jose Wilkins,? Activities Director on 08/16/2024 at 12:07 PM EST. I, Dr. García, have read, observed, and verified documentation. [facility] Medical History (Updated 08/16/24 @ 12:16 by Monroe García MD) Diabetic neuropathy Anemia Type 2 diabetes mellitus with unspecified complications Atherosclerotic cardiovascular disease Cardiac resynchronization therapy defibrillator (COLD MILL INSPECTOR-D) in place Surgical History History of colonoscopy H/O endoscopy History of implantable cardioverter-defibrillator (ICD) placement (~02/09/17) History of cardiac catheterization (~08/2015) History of umbilical hernia repair History of appendectomy History of cholecystectomy History of tubal ligation Family History Father Myocardial infarction Mother Uterine cancer Lung cancer Maternal Aunt Uterine cancer Mouth cancer Social History Housing: House Patient Tobacco Use Status: Never used Tobacco e-Cigarette/Vaping Use: Never Used service: No Current occupational status: retired Current occupational exposures/hazards: No Cognitive needs: Yes Hearing needs: No Vision needs: Yes Questionnaire Thrive Questionnaire Date Thrive assessed: 03/09/22 DYLON-7 AMB Questionnaire DYLON-7 Date DYLON - 7 assessed: 07/19/23 Source: Developed by Drs. Wicho Tucker, Sana Mendoza, Ta Moctezuma and colleagues, with an educational thai from [employer]. Review of Systems Const Denies chills, Denies fatigue, Denies fever(s), Denies headache(s) and Denies weakness ENT Denies dizziness and Denies headache(s) Card Denies dyspnea Resp Denies cough, Denies dyspnea, Denies wheezing and Denies other (shortness of breath) Musc Denies numbness and Denies tingling Neuro Denies dizziness, Denies headache(s), Denies numbness, Denies tingling and Denies weakness Psych Denies anxiety and Denies depression Endo Denies fatigue Aller/Immun Denies wheezing Physical exam (Primary Care) Vital Signs: Last Vital Signs Temp 97.2 F 08/16/24 11:33 Pulse 83 08/16/24 11:33 Resp 16 08/16/24 11:33 BP 120/62 08/16/24 11:33 Pulse Ox 97 08/16/24 11:33 Oxygen Delivery Method Room Air 08/16/24 11:33 BMI result Body Mass Index 37.3 Tobacco/Smoking Status: Tobacco use Status Tobacco use date assessed 02/01/24 08/16/24 11:30 Patient Tobacco Use Status Never used Tobacco 08/16/24 11:30 e-Cigarette/Vaping Use Never Used 08/16/24 11:30 Thrive Assessment: Date of Thrive Assessment Date Thrive assessed 03/09/22 08/16/24 11:30 Const General: well developed; No acute distress Nutritional Appearance: well nourished Orientation/consciousness: patient oriented x3 HENMT Head: Yes normocephalic and Yes atraumatic Eyes General: appearance normal, both eyes and all related structures Pupils: Equal, round and reactive pupils present EOM: EOMs intact bilaterally Resp Effort & Inspection: normal respiratory effort Auscultation: clear to auscultation bilaterally Cardio Rate: regular rate Rhythm: regular rhythm Heart sounds: S1 normal heart sound present, S2 normal heart sound present, no gallops, no murmurs and no rubs Neuro General: patient oriented x3 and No gait normal Cranial nerves: Yes Equal, round and reactive pupils present Gait exam (Neuro): gait abnormal Psych Affect: normal affect Coding Level of Care Code Est Pt Level 4 (60153) Diagnoses PNA (pneumonia) J18.9 Lower extremity weakness R29.898 Unsteady gait R26.81 Acute kidney injury N17.9 Assessment & Plan Assessment & Plan (1) PNA (pneumonia): Code(s): J18.9 - Pneumonia, unspecified organism Category: Medical Plan: Resolved.??Lungs?are?clear,?patient?is?breathing?easily?and?oxygen?saturation?97 % Stable (2) Lower extremity weakness: Code(s): R29.898 - Other symptoms and signs involving the musculoskeletal system Category: Medical Plan: Deconditioning?and?lower?extremity?weakness?after?pneumonia?and?hospital?stay Start?physical?therapy (3) Unsteady gait: Code(s): R26.81 - Unsteadiness on feet Category: Medical Plan: As?above,?patient?is?starting?physical?therapy (4) Acute kidney injury: Code(s): N17.9 - Acute kidney failure, unspecified Category: Medical Plan: Check?labs Orders: Orders PT Evaluation and Treatment Today R29.898 - Other symptoms and signs involving the musculoskeletal system
[2024-08-16 11:33] VITALS: BP 120/62; PULSE 83; RESP 16; TEMP 36.2; O2SAT 97; BMI 37.3
== END 2024-08-16 12:19 | disposition home or self-care (01) ==
PROVIDERS: PCP Family Medicine; Visit Provider Family Medicine
DX: J18.9 Pneumonia, unspecified organism (principal); R29.898 Other symptoms and signs involving the musculoskeletal system; R26.81 Unsteadiness on feet; N17.9 Acute kidney failure, unspecified

== ENCOUNTER 2024-08-16 11:43 | Outpatient (REF) | payer OTHER, SELFPAY ==
[2024-08-16 14:32] LABS: MANUAL DIFF FLAG NO
[2024-08-16 14:40] LABS: Basophils Absolute Auto 0.1 X10*3/uL (0.0-0.2); Basophils Percent Auto 1.3 % (0-2); Eosinophils Absolute Auto 0.2 X10*3/uL (0.0-0.4); Eosinophils Percent Auto 2.5 % (0-4); Hematocrit 45.1 % (37.0-47.0); Hemoglobin 14.8 g/dl (12.0-16.0); Imm Gran Abs Auto 0.09 X10*3/uL (0.00-0.03); Imm Gran Pct Auto 1.4 % (0.0-0.4); Lymphocytes Absolute Auto 1.9 X10*3/uL (1.2-4.9); Lymphocytes Percent Auto 30.1 % (20-40); Mean Corpuscular HGB Conc 32.8 g/dl (31.0-35.0); Mean Corpuscular Hemoglobin 32.5 pg (27.0-33.0); Mean Corpuscular Volume 99.1 fL (80.0-98.0); Mean Platelet Volume 11.3 fL (9.4-12.3); Monocytes Absolute Auto 0.6 X10*3/uL (0.1-1.2); Monocytes Percent Auto 9.8 % (2-11); Neutrophils Absolute Auto 3.5 x10*3/uL (2.0-8.3); Neutrophils Percent Auto 54.9 % (45-73); Platelet Count 201 X10*3/uL (160-400); Red Blood Count 4.55 X10*6/uL (4.20-5.50); Red Cell Distribution Width 15.5 % (11.0-16.0); White Blood Count 6.4 X10*3/uL (4.8-10.8)
[2024-08-16 14:58] LABS: Creatinine Urine 83.28 mg/dL
[2024-08-16 15:00] LABS: Creatinine Urine 83.29 mg/dL; Microalbum/Creatinine Ratio Ur 15.6 ug/mg cr (<30)
[2024-08-16 15:05] LABS: Alanine Aminotransferase 41 U/L (0-31); Albumin Level 4.4 g/dL (3.5-5.0); Alkaline Phosphatase 110 U/L (39-117); Anion Gap 13 (12-20); Aspartate Amino Transferase 50 U/L (5-31); Bilirubin Total 0.6 mg/dL (0.0-1.0); Blood Urea Nitrogen 23 mg/dL (9-16); Calcium 10.1 mg/dL (8.4-10.2); Carbon Dioxide 28 mmol/L (22-29); Chloride 104 mmol/L (96-108); Cholesterol 209 mg/dL (<200); Estimated Glomerular Filt Rate 37; Glucose Random 224 mg/dL (60-115); HDL Cholesterol 53 mg/dL (>40); LDL Cholesterol Calculated 100 mg/dL (<100); Potassium 4.6 mmol/L (3.3-5.1); Sodium 140 mmol/L (135-145); Total Protein 8.1 g/dL (6.5-8.0); Triglycerides 283 mg/dL (<150)
[2024-08-16 15:33] LABS: TSH reflex Free T4 1.36 uIU/mL (0.32-4.0)
[2024-08-16 18:50] LABS: B Type Natriuretic Peptide 20 pg/mL (<100)
== END 2024-08-16 11:44 | disposition home or self-care (01) ==
LOC: HO.WFDLDS 11:43
PROVIDERS: Nurse Practitioner Adult Health; Visit Provider Family Medicine
DX: J18.9 Pneumonia, unspecified organism (principal); R29.898 Other symptoms and signs involving the musculoskeletal system; R26.81 Unsteadiness on feet; N17.9 Acute kidney failure, unspecified; I25.10 Atherosclerotic heart disease of native coronary artery without angina pectoris; I48.91 Unspecified atrial fibrillation; I50.9 Heart failure, unspecified; Z00.00 Encounter for general adult medical examination without abnormal findings; E11.8 Type 2 diabetes mellitus with unspecified complications
CPT/HCPCS: 36415; 80053; 80061; 82043; 82570; 83880; 84443; 85025; 99212

== ENCOUNTER → 2024-08-28 23:59 | Outpatient (BNV) | payer OTHER, SELFPAY | PROVIDERS: PCP Family Medicine; Visit Provider Family Medicine | DX: F11.10 Opioid abuse, uncomplicated (principal); I11.0 Hypertensive heart disease with heart failure; E11.22 Type 2 diabetes mellitus with diabetic chronic kidney disease; D64.9 Anemia, unspecified | CPT/HCPCS: G0179 ==

== ENCOUNTER 2024-09-05 15:04 | Outpatient (AMB) | payer OTHER, SELFPAY ==
--- NOTE | 2024-09-05 15:01 | A.OFFPC_ITS ---
Intake Visit Reasons: f/u labs via telemedicine Intake Note: lab review Allergies Cephalosporins [CEPHALOSPORINS] Allergy (Intermediate, Verified 09/05/24 15:01) RASH oxycodone [From Tylox] Allergy (Intermediate, Verified 09/05/24 15:01) RASH Sulfa (Sulfonamide Antibiotics) [SULFA (SULFONAMIDE ANTIBIOTICS)] Allergy (Intermediate, Verified 09/05/24 15:01) RASH lisinopril Adverse Reaction (Severe, Verified 09/05/24 15:01) contraindication sulfamethoxazole [From Bactrim] Adverse Reaction (Severe, Verified 09/05/24 15:01) Rash trimethoprim [From Bactrim] Adverse Reaction (Severe, Verified 09/05/24 15:01) Rash naproxen [NAPROXEN] Adverse Reaction (Intermediate, Verified 09/05/24 15:01) contraindication Tobacco use date assessed: 02/01/24 Dental Screening Dental Screen Date: 02/01/24 HPI f/u labs via telemedicine HPI Details 73 y/o female presents to f/u labs via [facility]. Labs drawn 08/16/24. Reviewed labs with pt. Elevated liver enzymes - AST 50, ALT 41. Triglycerides 283. TC 209. LDL 100. HDL 53. Random glucose 224. 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 Surgical History History of colonoscopy H/O endoscopy History of implantable cardioverter-defibrillator (ICD) placement (~02/09/17) History of cardiac catheterization (~08/2015) History of umbilical hernia repair History of appendectomy History of cholecystectomy History of tubal ligation Family History Father Myocardial infarction Mother Uterine cancer Lung cancer Maternal Aunt Uterine cancer Mouth cancer Social History Housing: House Patient Tobacco Use Status: Never used Tobacco e-Cigarette/Vaping Use: Never Used service: No Current occupational status: retired Current occupational exposures/hazards: No Cognitive needs: Yes Hearing needs: No Vision needs: Yes Questionnaire Thrive Questionnaire Date Thrive assessed: 03/09/22 DYLON-7 AMB Questionnaire DYLON-7 Date DYLON - 7 assessed: 07/19/23 Source: Developed by Drs. Wicho Tucker, Sana Mendoza, Ta Mo[place] and colleagues, with an educational thai from [employer]. Review of Systems Const Denies chills, Denies fatigue, Denies fever(s), Denies headache(s) and Denies weakness ENT Denies dizziness and Denies headache(s) Card Denies dyspnea Resp Denies cough, Denies dyspnea, Denies wheezing and Denies other (shortness of breath) Musc Denies numbness and Denies tingling Neuro Denies dizziness, Denies headache(s), Denies numbness, Denies tingling and Denies weakness Psych Denies anxiety and Denies depression Endo Denies fatigue Aller/Immun Denies wheezing Physical exam (Primary Care) Tobacco/Smoking Status: Tobacco use Status Tobacco use date assessed 02/01/24 09/05/24 15:02 Patient Tobacco Use Status Never used Tobacco 09/05/24 15:02 e-Cigarette/Vaping Use Never Used 09/05/24 15:02 Thrive Assessment: Date of Thrive Assessment Date Thrive assessed 03/09/22 09/05/24 15:02 Telehealth Telehealth Telehealth Platform: Telephone Location of provider rendering services: practice address Location of patient: address on file Patient Identification confirmed using: Name, : Yes Telehealth method: voice only Patient verbally consented to treatment: Yes Patient verbally consented to billing insurance company: Yes Patient informed of any privacy concerns related to visit: Yes Minutes spent on Phone/Video with Pt.: 7 Coding Level of Care Code Tele Est Pt Level 2 (58675) Diagnoses Acute kidney injury N17.9 Elevated liver enzymes R74.8 Diabetes type 2, uncontrolled E11.65 Assessment & Plan Assessment & Plan (1) Acute kidney injury: Code(s): N17.9 - Acute kidney failure, unspecified Category: Medical Plan: Patient?with?coronary?artery?disease,?ischemic?cardiomyopathy,?C HF?who?contracted?COVID?infection?and?subsequent?pneumonia?and?then?sustained?ac hailey?kidney?injury?presents?for?follow-up?of?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 Her?GFR?is?still?rather?low?and?decreased?compared?with?last? couple?of?measurements. Encouraged?her?to?increase?her?water?intake Will?recheck?with?next?blood?draw If?worsening?will?consider?referral?to?Nephrology (2) Elevated liver enzymes: Code(s): R74.8 - Abnormal levels of other serum enzymes Category: Medical Plan: Mildly?elevated?liver?enzymes. Will?have?her?recheck?this?in?a?few?months. Encouraged?good?hydration If?levels?are?the?same?or?higher,?will?check?an?ultrasound (3) Diabetes type 2, uncontrolled: Code(s): E11.65 - Type 2 diabetes mellitus with hyperglycemia Category: Medical Plan: A1c?these?have?shown?poorly?controlled/uncontrolled?diabetes. Stressed?the?importance?of?better?blood?sugar?control?for?kidney?health Orders: Orders Comprehensive [place]. Panel Fast Today R74.8 - Abnormal levels of other serum enzymes, Z00.00 - Encounter for general adult medical examination without abnormal findings Microalbumin, Random (w Creat) Today I10 - Essential (primary) hypertension Hemoglobin A1c Today E11.65 - Type 2 diabetes mellitus with hyperglycemia, R73.01 - Impaired fasting glucose Lipid Panel Today I25.5 - Ischemic cardiomyopathy, Z00.00 - Encounter for general adult medical examination without abnormal findings
--- OUTSIDE RECORDS SUMMARY | 2024-09-05 17:46 | XMS_ITS | Clinical Summary ---
Author Organization Unknown Care Team Providers Care Chute Tender Name Role Phone DARÍO HEAD OF CYTOGENETICS, ABE Unavailable Unavailable JUAN RN, ARIANA Unavailable Unavailable Payers Payer Name Policy Type Policy Number Effective Date Expira tion Date HUMANDeborah.MA2.PPO.C.AUTH [id number] Problems Condition Name Condition Details Condition Category [...] 11-09 00:00: 00 ATHSCL HEART DISEASE OF [place] COR ART W OTH ANG PCTRS Active [...] ANXIETY DISORDER, UNSPECIFIED Active 11-09 00:00: 00 FPC (CURRENT) USE OF INSULIN Active 11-09 00:00: 00 PRESENCE OF CARDIAC PACEMAKER Active 08-22 00:00: 00 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) USE OF ANTITHROMBOT ICS/ANTIPLAT ELETS Active [...] 325 mg tablet 11-10 00:00: 00 Yes [id number] FEVER/PAIN 2 tablet EVERY 4 HOURS 2 tablet EVERY 4 HOURS (route: oral) Med Classific ation: Analgesic , Anti-infl ammatory or Antipyret ic atorvastati n 40 mg tablet 11-10 00:00: 00 Yes [id number] HLD 1 tablet BEDTIME 1 tablet BEDTIME (route: oral) Med Classific ation: Cardiovas cular Therapy Agents clopidogrel 75 mg tablet 11-10 00:00: 00 Yes [id number] AFIB 1 tablet DAILY 1 tablet DAILY (route: oral) Med Classific ation: Hematolog ical Agents duloxetine 20 mg capsule,del ayed release 11-10 00:00: 00 Yes [id number] DEPRESSION 2 capsule DAILY 2 capsule DAILY (route: oral) Med Classific ation: Central Nervous System Agents Eliquis 5 mg tablet 11-10 00:00: 00 Yes [id number] AFIB 1 tablet 2 TIMES DAILY 1 tablet 2 TIMES DAILY (route: oral) Med Classific ation: Hematolog ical Agents ferrous sulfate 325 mg (65 mg iron) tablet 11-10 00:00: 00 Yes [id number] SUPPLEMENT 1 tablet DAILY 1 tablet DAILY (route: oral) Med Classific ation: Electroly te Balance-N utritiona l Products furosemide 20 mg tablet 11-10 00:00: 00 Yes [id number] EDEMA 1 tablet DAILY 1 tablet DAILY (route: oral) Med Classific ation: Cardiovas cular Therapy Agents gabapentin 100 mg capsule 11-10 00:00: 00 Yes [id number] PAIN 2 capsule 3 TIMES DAILY 2 capsule 3 TIMES DAILY (route: oral) Med Classific ation: Central Nervous System Agents insulin glargine (U-100) 100 unit/mL (3 mL) subcutaneou s pen 11-10 00:00: 00 Yes [id number] DM 30 unit BEDTIME 30 unit BEDTIME (route: subcutaneo us) Med Classific ation: Endocrine insulin lispro (U-100) 100 unit/mL subcutaneou s pen 11-10 00:00: 00 Yes [id number] BS 150-199 1 unit DIRECTED 1 unit [facility]ED [facility] Med Classific ation: Endocrine insulin lispro (U-100) 100 unit/mL subcutaneou s pen 11-10 00:00: 00 Yes [id number] BS 200-249 4 unit DIRECTED 4 unit DIRECTED (route: subcutaneo us) Med Classific ation: Endocrine insulin lispro (U-100) 100 unit/mL subcutaneou s pen 11-10 00:00: 00 Yes [id number] BS 250-299 6 unit DIRECTED 6 unit DIRECTED (route: subcutaneo us) Med Classific ation: Endocrine insulin lispro (U-100) 100 unit/mL subcutaneou s pen 11-10 00:00: 00 Yes [id number] BS 300-349 8 unit DIRECTED 8 unit DIRECTED ([facility]) Med Classific ation: Endocrine insulin lispro (U-100) 100 unit/mL subcutaneou s pen 11-10 00:00: 00 Yes [id number] BS 350-399 10 unit DIRECTED 10 unit DIRECTED ([facility] Med Classific ation: Endocrine isosorbide dinitrate 30 mg tablet 11-10 00:00: 00 Yes [id number] HTN 2 tablet 2 TIMES DAILY 2 tablet 2 TIMES DAILY (route: oral) Med Classific ation: Cardiovas cular Therapy Agents lidocaine 5 % topical patch 11-10 00:00: 00 Yes [id number] PAIN 1 adhesiv e patch, medicat ed DAILY 1 adhesive patch, medicated DAILY (route: topical) Med Classific ation: Dermatolo gical melatonin 5 mg tablet 11-10 00:00: 00 Yes [id number] INSOMNIA 1 tablet DAILY 1 tablet DAILY (route: oral) Med Classific ation: Central Nervous System Agents metoprolol succinate ER 50 mg tablet,exte nded release 24 hr 11-10 00:00: 00 Yes [id number] HTN 1 tablet DAILY 1 tablet DAILY (route: oral) Med Classific ation: Cardiovas cular Therapy Agents miconazole nitrate 2 % topical powder 11-10 00:00: 00 Yes [id number] RASH Per instruc tions DAILY Per instructio ns DAILY (route: topical) Med Classific ation: Dermatolo gical midodrine 5 mg tablet 11-10 00:00: 00 Yes [id number] HYPOTENSION 1 tablet 3 TIMES DAILY 1 tablet 3 TIMES DAILY (route: oral) Med Classific ation: Cardiovas cular Therapy Agents mirtazapine 15 mg tablet 11-10 00:00: 00 Yes [id number] DEPRESSION 1 tablet DAILY 1 tablet DAILY (route: oral) Med Classific ation: Central Nervous System Agents multivitami n with minerals tablet 11-10 00:00: 00 Yes [id number] SUPPLEMENT 1 tablet DAILY 1 tablet DAILY (route: oral) Med Classific ation: Electroly te Balance-N utritiona l Products Nitrostat 0.4 mg sublingual tablet 11-10 00:00: 00 Yes [id number] CHEST PAIN 1 tablet EVERY 5 MINUTES TIMES 3 1 tablet EVERY 5 MINUTES TIMES 3 (route: sublingual ) Med Classific ation: Cardiovas cular Therapy Agents pantoprazol e 40 mg tablet,jessica yed release 11-10 00:00: 00 Yes [id number] GERD 1 tablet DAILY 1 tablet DAILY (route: oral) Med Classific ation: Gastroint estinal Therapy Agents Saccharomyc es boulardii 250 mg capsule 11-10 00:00: 00 Yes [id number] PROBIOTIC 1 capsule 2 TIMES DAILY 1 capsule 2 TIMES DAILY (route: oral) Med Classific ation: Gastroint estinal Therapy Agents sennosides 8.6 mg-docusate sodium 50 mg tablet 11-10 00:00: 00 Yes [id number] constipatio n 2 tablet DAILY 2 tablet [...] PATIENT REPORTED WEIGHT AND NOTIFY CM / CREELER FOR MD NOTIFICATION FOR SIGNS AND SYMPTOMS [...] PATIENT REPORTED WEIGHT AND NOTIFY CM / CREELER FOR MD NOTIFICATION FOR SIGNS AND SYMPTOMS [...] End Date/Time Encounter Type Admission Type Attending [facility] Care Facility Care Department Encounter ID Discharge Date Discharge Status Discharge Condition Discharge Reason Percent Goals Met 2022-11-10 00:00:00 2022-11-24 00:00:00 Outpatient NEW ADMISSION ARIANA MARTINEZ [facility] [id number] 2022-11-24 00:00:00 DISCHARGE TO HOME OR SELF CARE MODERATE ASSIST WITH TRANSFER/A MBULATION/ ADLS ONLY - D/C - FAILURE TO MAINTAIN SERVICES OF .
--- OUTSIDE RECORDS SUMMARY | 2024-09-05 17:46 | XMS_ITS | Clinical Summary ---
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 Active [...] ANXIETY DISORDER, UNSPECIFIED Active 11-09 00:00: 00 NURSING HOME (CURRENT) USE OF INSULIN Active 11-09 00:00: 00 PRESENCE OF CARDIAC PACEMAKER Active 08-22 00:00: 00 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) USE OF ANTITHROMBOT ICS/ANTIPLAT ELETS Active [...] 325 mg tablet 11-10 00:00: 00 Yes [id number] FEVER/PAIN 2 tablet EVERY 4 HOURS 2 tablet EVERY 4 HOURS (route: oral) Med Classific ation: Analgesic , Anti-infl ammatory or Antipyret ic atorvastati n 40 mg tablet 11-10 00:00: 00 Yes [id number] HLD 1 tablet BEDTIME 1 tablet BEDTIME (route: oral) Med Classific ation: Cardiovas cular Therapy Agents clopidogrel 75 mg tablet 11-10 00:00: 00 Yes [id number] AFIB 1 tablet DAILY 1 tablet DAILY (route: oral) Med Classific ation: Hematolog ical Agents duloxetine 20 mg capsule,del ayed release 11-10 00:00: 00 Yes [id number] DEPRESSION 2 capsule DAILY 2 capsule DAILY (route: oral) Med Classific ation: Central Nervous System Agents Eliquis 5 mg tablet 11-10 00:00: 00 Yes [id number] AFIB 1 tablet 2 TIMES DAILY 1 tablet 2 TIMES DAILY (route: oral) Med Classific ation: Hematolog ical Agents ferrous sulfate 325 mg (65 mg iron) tablet 11-10 00:00: 00 Yes [id number] SUPPLEMENT 1 tablet DAILY 1 tablet DAILY (route: oral) Med Classific ation: Electroly te Balance-N utritiona l Products furosemide 20 mg tablet 11-10 00:00: 00 Yes [id number] EDEMA 1 tablet DAILY 1 tablet DAILY (route: oral) Med Classific ation: Cardiovas cular Therapy Agents gabapentin 100 mg capsule 11-10 00:00: 00 Yes [id number] PAIN 2 capsule 3 TIMES DAILY 2 capsule 3 TIMES DAILY (route: oral) Med Classific ation: Central Nervous System Agents insulin glargine (U-100) 100 unit/mL (3 mL) subcutaneou s pen 11-10 00:00: 00 Yes [id number] DM 30 unit BEDTIME 30 unit BEDTIME (route: subcutaneo us) Med Classific ation: Endocrine insulin lispro (U-100) 100 unit/mL subcutaneou s pen 11-10 00:00: 00 Yes [id number] BS 150-199 1 unit DIRECTED 1 unit [facility]ED [facility] Med Classific ation: Endocrine insulin lispro (U-100) 100 unit/mL subcutaneou s pen 11-10 00:00: 00 Yes [id number] BS 200-249 4 unit DIRECTED 4 unit DIRECTED (route: subcutaneo us) Med Classific ation: Endocrine insulin lispro (U-100) 100 unit/mL subcutaneou s pen 11-10 00:00: 00 Yes [id number] BS 250-299 6 unit DIRECTED 6 unit DIRECTED (route: subcutaneo us) Med Classific ation: Endocrine insulin lispro (U-100) 100 unit/mL subcutaneou s pen 11-10 00:00: 00 Yes [id number] BS 300-349 8 unit DIRECTED 8 unit DIRECTED ([facility]) Med Classific ation: Endocrine insulin lispro (U-100) 100 unit/mL subcutaneou s pen 11-10 00:00: 00 Yes [id number] BS 350-399 10 unit DIRECTED 10 unit [facility]ED [facility] Med Classific ation: Endocrine isosorbide dinitrate 30 mg tablet 11-10 00:00: 00 Yes [id number] HTN 2 tablet 2 TIMES DAILY 2 tablet 2 TIMES DAILY (route: oral) Med Classific ation: Cardiovas cular Therapy Agents lidocaine 5 % topical patch 11-10 00:00: 00 Yes [id number] PAIN 1 adhesiv e patch, medicat ed DAILY 1 adhesive patch, medicated DAILY (route: topical) Med Classific ation: Dermatolo gical melatonin 5 mg tablet 11-10 00:00: 00 Yes [id number] INSOMNIA 1 tablet DAILY 1 tablet DAILY (route: oral) Med Classific ation: Central Nervous System Agents metoprolol succinate ER 50 mg tablet,exte nded release 24 hr 11-10 00:00: 00 Yes [id number] HTN 1 tablet DAILY 1 tablet DAILY (route: oral) Med Classific ation: Cardiovas cular Therapy Agents miconazole nitrate 2 % topical powder 11-10 00:00: 00 Yes [id number] RASH Per instruc tions DAILY Per instructio ns DAILY (route: topical) Med Classific ation: Dermatolo gical midodrine 5 mg tablet 11-10 00:00: 00 Yes [id number] HYPOTENSION 1 tablet 3 TIMES DAILY 1 tablet 3 TIMES DAILY (route: oral) Med Classific ation: Cardiovas cular Therapy Agents mirtazapine 15 mg tablet 11-10 00:00: 00 Yes [id number] DEPRESSION 1 tablet DAILY 1 tablet DAILY (route: oral) Med Classific ation: Central Nervous System Agents multivitami n with minerals tablet 11-10 00:00: 00 Yes [id number] SUPPLEMENT 1 tablet DAILY 1 tablet DAILY (route: oral) Med Classific ation: Electroly te Balance-N utritiona l Products Nitrostat 0.4 mg sublingual tablet 11-10 00:00: 00 Yes [id number] CHEST PAIN 1 tablet EVERY 5 MINUTES TIMES 3 1 tablet EVERY 5 MINUTES TIMES 3 (route: sublingual ) Med Classific ation: Cardiovas cular Therapy Agents pantoprazol e 40 mg tablet,jessica yed release 11-10 00:00: 00 Yes [id number] GERD 1 tablet DAILY 1 tablet DAILY (route: oral) Med Classific ation: Gastroint estinal Therapy Agents Saccharomyc es boulardii 250 mg capsule 11-10 00:00: 00 Yes [id number] PROBIOTIC 1 capsule 2 TIMES DAILY 1 capsule 2 TIMES DAILY (route: oral) Med Classific ation: Gastroint estinal Therapy Agents sennosides 8.6 mg-docusate sodium 50 mg tablet 11-10 00:00: 00 Yes [id number] constipatio n 2 tablet DAILY 2 tablet [...] PATIENT REPORTED WEIGHT AND NOTIFY CM / MOTION PICTURE PROJECTIONIST APPRENTICE FOR MD NOTIFICATION FOR SIGNS AND SYMPTOMS [...] PATIENT REPORTED WEIGHT AND NOTIFY CM / MOTION PICTURE PROJECTIONIST APPRENTICE FOR MD NOTIFICATION FOR SIGNS AND SYMPTOMS [...] End Date/Time Encounter Type Admission Type Attending [facility] Care Facility Care Department Encounter ID Discharge Date Discharge Status Discharge Condition Discharge Reason Percent Goals Met 2022-11-10 00:00:00 2022-11-24 00:00:00 Outpatient NEW ADMISSION ARIANA MARTINEZ [facility] [id number] 2022-11-24 00:00:00 DISCHARGE TO HOME OR SELF CARE MODERATE ASSIST WITH TRANSFER/A MBULATION/ ADLS ONLY - D/C - FAILURE TO MAINTAIN SERVICES OF .
--- OUTSIDE RECORDS SUMMARY | 2024-09-05 17:46 | XMS_ITS | Clinical Summary ---
Author Organization Unknown Care Team Providers Care Machine Shop Worker Name Role Phone LATOYA MARTINEZ, SYLVAIN Unavailable Unavailable REY GRANT, [place] Unavailable Unavailable Payers Payer Name Policy Type Policy Number Effective Date Expira tion Date [facility] [place] [id number] [place] [id number] ON DEMAND MEDICARE - [facility] BILLING - [place] [id number] Problems Condition Name Condition Details Condition Category [...] 002 00:00: 00 09-05 23:59 :00 No [id number] Per instruc tions TWO (2) TIMES A DAY TO 3 (THREE) TIMES A DAY Per instructio ns TWO (2) TIMES A DAY TO 3 (THREE) TIMES A DAY (route: topical) Med Classific ation: Antisepti cs and Disinfect ants Eliquis 5 mg tablet 03-11 00:00: 00 Yes [id number] 1 tablet TWO (2) TIMES A DAY 1 tablet TWO (2) TIMES A DAY (route: oral) Med Classific ation: Hematolog ical Agents ferrous sulfate 324 mg (65 mg iron) tablet,jessica yed release 2020-08 00:00: 00 03-11 23:59 :00 No [id number] Per instruc tions DAILY Per instructio ns DAILY (route: oral) Med Classific ation: Electroly te Balance-N utritiona l Products gabapentin 400 mg capsule 2020-08 00:00: 00 03-11 23:59 :00 No [id number] Per instruc tions 3 (THREE) TIMES A DAY Per instructio ns 3 (THREE) TIMES A DAY (route: oral) Med Classific ation: Central Nervous System Agents metoprolol succinate ER 25 mg tablet,exte nded release 24 hr 2020-08 00:00: 00 03-11 23:59 :00 No [id number] Per instruc tions DAILY Per instructio ns DAILY (route: oral) Med Classific ation: Cardiovas cular Therapy Agents magnesium oxide 400 mg (241.3 mg magnesium) tablet 2020-08 00:00: 00 03-11 23:59 :00 No [id number] Per instruc tions DAILY Per instructio ns DAILY (route: oral) Med Classific ation: Electroly te Balance-N utritiona l Products atorvastati n 40 mg tablet 2020-08 00:00: 00 03-11 23:59 :00 No [id number] Per instruc tions DAILY Per instructio ns DAILY (route: oral) Med Classific ation: Cardiovas cular Therapy Agents isosorbide dinitrate 30 mg tablet 2020-08 00:00: 00 03-11 23:59 :00 No [id number] Per instruc tions TWO (2) TIMES A DAY Per instructio ns TWO (2) TIMES A DAY (route: oral) Med Classific ation: Cardiovas cular Therapy Agents clopidogrel 75 mg tablet 03-11 00:00: 00 Yes [id number] 1 tablet DAILY 1 tablet DAILY (route: oral) Med Classific ation: Hematolog ical Agents torsemide 20 mg tablet 2020-08 00:00: 00 03-11 23:59 :00 No [id number] Per instruc tions DAILY Per instructio ns DAILY (route: oral) Med Classific ation: Cardiovas cular Therapy Agents pantoprazol e 20 mg tablet,jessica yed release 2020-08 0- 00:00: 00 03-11 23:59 :00 No [id number] Per instruc tions DAILY Per instructio ns DAILY (route: oral) Med Classific ation: Gastroint estinal Therapy Agents Lantus Solostar U-100 Insulin 100 unit/mL (3 mL) subcutaneou s pen 2020-08 0 00:00: 00 03-11 23:59 :00 No [id number] Per instruc tions DAILY Per instructio ns DAILY (route: subcutaneo us) Med Classific ation: Endocrine acetaminoph en 325 mg tablet 03-11 00:00: 00 Yes [id number] 2 tablet 3 TIMES DAILY 2 tablet 3 TIMES DAILY (route: oral) Med Classific ation: Analgesic , Anti-infl ammatory or Antipyret ic atorvastati n 80 mg tablet 03-11 00:00: 00 Yes [id number] 1 tablet BEDTIME 1 tablet BEDTIME (route: oral) Med Classific ation: Cardiovas cular Therapy Agents duloxetine 20 mg capsule,del ayed release 03-11 00:00: 00 Yes [id number] 2 capsule DAILY 2 capsule DAILY (route: oral) Med Classific ation: Central Nervous System Agents ferrous sulfate 325 mg (65 mg iron) tablet 03-11 00:00: 00 Yes [id number] 1 tablet DAILY 1 tablet DAILY (route: oral) Med Classific ation: Electroly te Balance-N utritiona l Products furosemide 20 mg tablet 03-11 00:00: 00 04-19 23:59 :00 No [id number] 1 tablet DAILY 1 tablet DAILY (route: oral) Med Classific ation: Cardiovas cular Therapy Agents gabapentin 100 mg capsule 03-11 00:00: 00 Yes [id number] 2 capsule 3 TIMES DAILY 2 capsule 3 TIMES DAILY (route: oral) Med Classific ation: Central Nervous System Agents Lantus Solostar U-100 Insulin 100 unit/mL (3 mL) subcutaneou s pen 03-11 00:00: 00 Yes [id number] 20 unit BEDTIME 20 unit BEDTIME (route: subcutaneo us) Med Classific ation: Endocrine melatonin 5 mg capsule 03-11 00:00: 00 Yes [id number] 1 capsule DAILY 1 capsule DAILY (route: oral) Med Classific ation: Central Nervous System Agents metoprolol succinate ER 50 mg tablet,exte nded release 24 hr 03-11 00:00: 00 Yes [id number] 1 tablet DAILY 1 tablet DAILY (route: oral) Med Classific ation: Cardiovas cular Therapy Agents mirtazapine 15 mg disintegrat ing tablet 03-11 00:00: 00 Yes [id number] 1 tablet BEDTIME 1 tablet BEDTIME (route: oral) Med Classific ation: Central Nervous System Agents multivitami n tablet 03-11 00:00: 00 Yes [id number] 1 tablet DAILY 1 tablet DAILY (route: oral) Med Classific ation: Electroly te Balance-N utritiona l Products Nitrostat 0.4 mg sublingual tablet 03-11 00:00: 00 Yes [id number] 1 tablet NEEDED 1 tablet NEEDED (route: sublingual ) Med Classific ation: Cardiovas cular Therapy Agents pantoprazol e 40 mg tablet,jessica yed release 03-11 00:00: 00 Yes [id number] 1 tablet DAILY 1 tablet DAILY (route: oral) Med Classific ation: Gastroint estinal Therapy Agents quetiapine 200 mg tablet 03-11 00:00: 00 11-02 23:59 :00 No [id number] 1 tablet BEDTIME 1 tablet BEDTIME (route: oral) Med Classific ation: Central Nervous System Agents Senna Laxative 8.6 mg tablet 03-11 00:00: 00 Yes [id number] 2 tablet DAILY 2 tablet DAILY (route: oral) Med Classific ation: Gastroint estinal Therapy Agents valsartan 40 mg tablet 03-11 00:00: 00 Yes [id number] 1 tablet DAILY 1 tablet DAILY (route: oral) Med Classific ation: Cardiovas cular Therapy Agents Lasix 40 mg tablet 8-29 00:00: 00 05-09 23:59 :00 No [id number] 1 tablet DAILY 1 tablet DAILY (route: oral) Med Classific ation: Cardiovas cular Therapy Agents Lasix 20 mg tablet 05-10 00:00: 00 11-02 23:59 :00 No [id number] 1 tablet DAILY 1 tablet DAILY (route: oral) Med Classific ation: Cardiovas cular Therapy Agents Seroquel 100 mg tablet 05-10 00:00: 00 11-02 23:59 :00 No [id number] 1 tablet BEDTIME 1 tablet BEDTIME (route: oral) Med Classific ation: Central Nervous System Agents Jardiance 10 mg tablet 2022-08 00:00: 00 Yes [id number] 1 tablet DAILY 1 tablet DAILY (route: oral) Med Classific ation: Endocrine Seroquel 100 mg tablet 17 00:00: 00 Yes [id number] 3 tablet BEDTIME 3 tablet BEDTIME (route: oral) Med Classific ation: Central Nervous System Agents torsemide 20 mg tablet 17 00:00: 00 Yes [id number] 1 tablet DAILY 1 tablet DAILY (route: oral) Med Classific ation: Cardiovas cular Therapy Agents isosorbide mononitrate ER 60 mg tablet,exte nded release 24 hr 2023-08 00:00: 00 Yes [id number] 1 tablet DAILY 1 tablet DAILY (route: oral) Med Classific ation: Cardiovas cular Therapy Agents Vital Signs Vital Name Observation Time Observation Value Commen ts Temperature 2024-09-03 08:47:00.000 97.9 [degF] Pulse 2024-09-03 08:47:00.000 78 /min O2 Saturation (%) 2024-09-03 08:48:00.000 98 % Respirations 2024-09-03 08:47:00.000 20 /min Weight (lbs) 2024-09-03 08:48:00.000 212 [lb_av] Systolic Blood Pressure 2024-09-03 08:47:00.000 129 mm [Hg] Diastolic Blood Pressure 2024-09-03 08:47:00.000 78 mm [Hg] Plan of Treatment Planned Activity [...] OF PATIENTS MENTAL/BEHAVIORAL STATUS, ASSESS VITAL SIGNS ALLOW 2 PRNS FOR MEDICATION MANAGEMENT. [code = SKILLED NURSE TO O/A OF PATIENTS MENTAL/BEHAVIORAL STATUS, ASSESS VITAL SIGNS ALLOW 2 PRNS FOR MEDICATION MANAGEMENT.] Future Scheduled Test SKILLED NU RSE WILL MAINTAIN SITUATIONAL AWARENESS FOR SAFETY AND WILL NOTIFY CLINICAL CONCEPTOR AND PHYSICIAN/PROVIDER WITH ANY CHANGE IN CONDITION. [code = SKILLED NURSE WILL MAINTAIN SITUATIONAL AWARENESS FOR SAFETY AND WILL NOTIFY CLINICAL CONCEPTOR AND PHYSICIAN/PROVIDER WITH ANY CHANGE IN CONDITION.] [...] INTERVENTION.] Future Scheduled Test SKILLED NU RSE FOR O/A AND SKILLED TEACHING OF COPING SKILLS TO MANAGE ANXIETY AND MAINTAIN SAFETY. [code = SKILLED NURSE FOR O/A AND SKILLED TEACHING OF COPING SKILLS TO MANAGE ANXIETY AND MAINTAIN SAFETY.] Future Scheduled Test SKILLED NU RSE TO [...] NU RSE FOR O/A, TEACHING, AND MANAGEMENT OF CHF [code = SKILLED NURSE FOR O/A, TEACHING, AND MANAGEMENT OF CHF ] Future Scheduled Test SKILLED NU RSE FOR O/A, TEACHING AND SELF-MANAGEMENT RELATED TO HEART FAILURE. INSTRUCT PATIENT/CAREGIVER ON SIGNS AND SYMPTOMS OF EXACERBATION TO REPORT. WEIGHT TO BE OBTAINED AND WEIGHT GAIN OF 2 LBS OVERNIGHT OR 5 LBS IN 1 [...] EXACERBATION TO REPORT. WEIGHT TO BE OBTAINED AND WEIGHT GAIN OF 2 LBS OVERNIGHT OR 5 LBS IN 1 WEEK TO BE REPORTED TO PHYSICIAN. IF UNABLE TO WEIGH PATIENT, SKILLED NURSE TO OBTAIN MEASUREMENT OF IN CM AT EACH VISIT AND REPORT AN INCREASE OF 1 CM TO PHYSICIAN.] Future Scheduled Test SKILLED NU RSE FOR O/A AND TEACHING OF ENDOCRINE SYSTEM TO IDENTIFY CHANGES ASSOCIATED WITH EXACERBATION OF (SPECIFY ENDOCRINE DIAGNOSIS) FOR EARLY INTERVENTION OF COMPLICATIONS. [code = SKILLED NURSE FOR O/A AND TEACHING OF ENDOCRINE SYSTEM TO IDENTIFY CHANGES ASSOCIATED WITH EXACERBATION OF (SPECIFY ENDOCRINE DIAGNOSIS) FOR EARLY INTERVENTION OF COMPLICATIONS.] Goal 2023-05-09 Patient Goal - P T [...] AND MAJOR DEPRESSION Goal 2024-03-01 Patient Goal Emanuel Lynne HAS BEEN HOMELESS AND SHE DOES NOT WANT A REPEAT THIS HAS STRESSED HER QUITE A GREAT DEAL LEADING TO CHEST PAINS, ANXIETY AND MAJOR DEPRESSION Goal 2024-04-30 Patient Goal Emanuel Lynne HAS BEEN HOMELESS AND SHE DOES NOT WANT A REPEAT THIS HAS STRESSED HER QUITE A GREAT DEAL LEADING TO CHEST PAINS, ANXIETY AND MAJOR DEPRESSION Goal 2024-06-28 Patient Goal Emanuel Lynne HAS BEEN HOMELESS AND SHE DOES NOT WANT A REPEAT THIS HAS STRESSED HER QUITE A GREAT DEAL LEADING TO CHEST PAINS, ANXIETY AND MAJOR DEPRESSION Goal 2024-08-27 Patient Goal Emanuel Lynne HAS BEEN HOMELESS AND SHE DOES NOT WANT A REPEAT THIS HAS STRESSED HER QUITE A GREAT DEAL LEADING TO CHEST PAINS, ANXIETY AND MAJOR DEPRESSION Goal Patient Goal Emanuel Lynne HAS BEEN HOMELESS AND SHE DOES NOT WANT A REPEAT THIS HAS STRESSED HER QUITE A GREAT DEAL LEADING TO CHEST PAINS, ANXIETY AND MAJOR DEPRESSION Goal Provider Goal - A PLAN OF CARE WILL BE ESTABLISHED THAT MEETS PATIENT'S PRISON NEEDS AND INCLUDES PATIENT GOAL FOR HOME [...] PERIOD. Goal Provider Goal - PATIENT WILL BE ABLE TO PERFORM DAILY FUNCTIONS AND HAVE OPTIMAL IMPROVEMENT IN LEVEL OF ANXIETY THROUGHOUT CERTIFICATION PERIOD. Goal Provider Goal - [...] END OF EPISODE. Goal Provider Goal - PATIENT/CAREGIVER WILL VERBALIZE SIGNS AND SYMPTOMS OF EXACERBATION TO REPORT TO NURSE/PHYSICIAN THROUGHOUT THE CERTIFICATION PERIOD. Encounters Start Date/Time End Date/Time Encounter Type Admission Type Attending [facility] Facility Care Department Encounter ID Discharge Date Discharge Status Discharge Condition Discharge Reason Percent Goals Met 2023-03-11 00:00:00 2024-10-30 00:00:00 Outpatient [facility] [id number] 21.43
--- OUTSIDE RECORDS SUMMARY | 2024-09-05 17:46 | XMS_ITS | Clinical Summary ---
Author Organization Unknown Care Team Providers Care Rn Rehabilitation Name Role Phone LATOYA MARTINEZ, SYLVAIN Unavailable Unavailable REY GRANT, [place] Unavailable Unavailable Payers Payer Name Policy Type Policy Number Effective Date Expira tion Date [facility] [place] [id number] [id number] ON DEMAND MEDICARE - [facility] BILLING - [place] [id number] Problems Condition Name Condition Details Condition Category [...] 002 00:00: 00 09-05 23:59 :00 No [id number] Per instruc tions TWO (2) TIMES A DAY TO 3 (THREE) TIMES A DAY Per instructio ns TWO (2) TIMES A DAY TO 3 (THREE) TIMES A DAY (route: topical) Med Classific ation: Antisepti cs and Disinfect ants Eliquis 5 mg tablet 03-11 00:00: 00 Yes [id number] 1 tablet TWO (2) TIMES A DAY 1 tablet TWO (2) TIMES A DAY (route: oral) Med Classific ation: Hematolog ical Agents ferrous sulfate 324 mg (65 mg iron) tablet,jessica yed release 2020-08 00:00: 00 03-11 23:59 :00 No [id number] Per instruc tions DAILY Per instructio ns DAILY (route: oral) Med Classific ation: Electroly te Balance-N utritiona l Products gabapentin 400 mg capsule 2020-08 00:00: 00 03-11 23:59 :00 No [id number] Per instruc tions 3 (THREE) TIMES A DAY Per instructio ns 3 (THREE) TIMES A DAY (route: oral) Med Classific ation: Central Nervous System Agents metoprolol succinate ER 25 mg tablet,exte nded release 24 hr 2020-08 00:00: 00 03-11 23:59 :00 No [id number] Per instruc tions DAILY Per instructio ns DAILY (route: oral) Med Classific ation: Cardiovas cular Therapy Agents magnesium oxide 400 mg (241.3 mg magnesium) tablet 2020-08 00:00: 00 03-11 23:59 :00 No [id number] Per instruc tions DAILY Per instructio ns DAILY (route: oral) Med Classific ation: Electroly te Balance-N utritiona l Products atorvastati n 40 mg tablet 2020-08 00:00: 00 03-11 23:59 :00 No [id number] Per instruc tions DAILY Per instructio ns DAILY (route: oral) Med Classific ation: Cardiovas cular Therapy Agents isosorbide dinitrate 30 mg tablet 2020-08 00:00: 00 03-11 23:59 :00 No [id number] Per instruc tions TWO (2) TIMES A DAY Per instructio ns TWO (2) TIMES A DAY (route: oral) Med Classific ation: Cardiovas cular Therapy Agents clopidogrel 75 mg tablet 03-11 00:00: 00 Yes [id number] 1 tablet DAILY 1 tablet DAILY (route: oral) Med Classific ation: Hematolog ical Agents torsemide 20 mg tablet 2020-08 00:00: 00 03-11 23:59 :00 No [id number] Per instruc tions DAILY Per instructio ns DAILY (route: oral) Med Classific ation: Cardiovas cular Therapy Agents pantoprazol e 20 mg tablet,jessica yed release 2020-08 0- 00:00: 00 03-11 23:59 :00 No [id number] Per instruc tions DAILY Per instructio ns DAILY (route: oral) Med Classific ation: Gastroint estinal Therapy Agents Lantus Solostar U-100 Insulin 100 unit/mL (3 mL) subcutaneou s pen 2020-08 0 00:00: 00 03-11 23:59 :00 No [id number] Per instruc tions DAILY Per instructio ns DAILY (route: subcutaneo us) Med Classific ation: Endocrine acetaminoph en 325 mg tablet 03-11 00:00: 00 Yes [id number] 2 tablet 3 TIMES DAILY 2 tablet 3 TIMES DAILY (route: oral) Med Classific ation: Analgesic , Anti-infl ammatory or Antipyret ic atorvastati n 80 mg tablet 03-11 00:00: 00 Yes [id number] 1 tablet BEDTIME 1 tablet BEDTIME (route: oral) Med Classific ation: Cardiovas cular Therapy Agents duloxetine 20 mg capsule,del ayed release 03-11 00:00: 00 Yes [id number] 2 capsule DAILY 2 capsule DAILY (route: oral) Med Classific ation: Central Nervous System Agents ferrous sulfate 325 mg (65 mg iron) tablet 03-11 00:00: 00 Yes [id number] 1 tablet DAILY 1 tablet DAILY (route: oral) Med Classific ation: Electroly te Balance-N utritiona l Products furosemide 20 mg tablet 03-11 00:00: 00 04-19 23:59 :00 No [id number] 1 tablet DAILY 1 tablet DAILY (route: oral) Med Classific ation: Cardiovas cular Therapy Agents gabapentin 100 mg capsule 03-11 00:00: 00 Yes [id number] 2 capsule 3 TIMES DAILY 2 capsule 3 TIMES DAILY (route: oral) Med Classific ation: Central Nervous System Agents Lantus Solostar U-100 Insulin 100 unit/mL (3 mL) subcutaneou s pen 03-11 00:00: 00 Yes [id number] 20 unit BEDTIME 20 unit BEDTIME (route: subcutaneo us) Med Classific ation: Endocrine melatonin 5 mg capsule 03-11 00:00: 00 Yes [id number] 1 capsule DAILY 1 capsule DAILY (route: oral) Med Classific ation: Central Nervous System Agents metoprolol succinate ER 50 mg tablet,exte nded release 24 hr 03-11 00:00: 00 Yes [id number] 1 tablet DAILY 1 tablet DAILY (route: oral) Med Classific ation: Cardiovas cular Therapy Agents mirtazapine 15 mg disintegrat ing tablet 03-11 00:00: 00 Yes [id number] 1 tablet BEDTIME 1 tablet BEDTIME (route: oral) Med Classific ation: Central Nervous System Agents multivitami n tablet 03-11 00:00: 00 Yes [id number] 1 tablet DAILY 1 tablet DAILY (route: oral) Med Classific ation: Electroly te Balance-N utritiona l Products Nitrostat 0.4 mg sublingual tablet 03-11 00:00: 00 Yes [id number] 1 tablet NEEDED 1 tablet NEEDED (route: sublingual ) Med Classific ation: Cardiovas cular Therapy Agents pantoprazol e 40 mg tablet,jessica yed release 03-11 00:00: 00 Yes [id number] 1 tablet DAILY 1 tablet DAILY (route: oral) Med Classific ation: Gastroint estinal Therapy Agents quetiapine 200 mg tablet 03-11 00:00: 00 11-02 23:59 :00 No [id number] 1 tablet BEDTIME 1 tablet BEDTIME (route: oral) Med Classific ation: Central Nervous System Agents Senna Laxative 8.6 mg tablet 03-11 00:00: 00 Yes [id number] 2 tablet DAILY 2 tablet DAILY (route: oral) Med Classific ation: Gastroint estinal Therapy Agents valsartan 40 mg tablet 03-11 00:00: 00 Yes [id number] 1 tablet DAILY 1 tablet DAILY (route: oral) Med Classific ation: Cardiovas cular Therapy Agents Lasix 40 mg tablet 8-29 00:00: 00 05-09 23:59 :00 No [id number] 1 tablet DAILY 1 tablet DAILY (route: oral) Med Classific ation: Cardiovas cular Therapy Agents Lasix 20 mg tablet 05-10 00:00: 00 11-02 23:59 :00 No [id number] 1 tablet DAILY 1 tablet DAILY (route: oral) Med Classific ation: Cardiovas cular Therapy Agents Seroquel 100 mg tablet 05-10 00:00: 00 11-02 23:59 :00 No [id number] 1 tablet BEDTIME 1 tablet BEDTIME (route: oral) Med Classific ation: Central Nervous System Agents Jardiance 10 mg tablet 2022-08 00:00: 00 Yes [id number] 1 tablet DAILY 1 tablet DAILY (route: oral) Med Classific ation: Endocrine Seroquel 100 mg tablet 17 00:00: 00 Yes [id number] 3 tablet BEDTIME 3 tablet BEDTIME (route: oral) Med Classific ation: Central Nervous System Agents torsemide 20 mg tablet 17 00:00: 00 Yes [id number] 1 tablet DAILY 1 tablet DAILY (route: oral) Med Classific ation: Cardiovas cular Therapy Agents isosorbide mononitrate ER 60 mg tablet,exte nded release 24 hr 2023-08 00:00: 00 Yes [id number] 1 tablet DAILY 1 tablet DAILY (route: [...] AWARENESS FOR SAFETY AND WILL NOTIFY CLINICAL MANAGER [employer] AND PHYSICIAN/PROVIDER WITH ANY CHANGE IN CONDITION. [code = SKILLED NURSE WILL MAINTAIN SITUATIONAL AWARENESS FOR SAFETY AND WILL NOTIFY CLINICAL MANAGER ARMY AND PHYSICIAN/PROVIDER WITH ANY CHANGE IN CONDITION.] [...] CARE WILL BE ESTABLISHED THAT MEETS PATIENT'S [facility] NEEDS AND INCLUDES PATIENT GOAL FOR HOME [...] End Date/Time Encounter Type Admission Type Attending [facility] [place] Facility Care Department Encounter ID Discharge Date Discharge Status Discharge Condition Discharge Reason Percent Goals Met 2023-03-11 00:00:00 2024-10-30 00:00:00 Outpatient [facility] [id number] 21.43
== END 2024-09-05 17:05 | disposition home or self-care (01) ==
LOC: HO.HMCFM 15:04
PROVIDERS: PCP Family Medicine; Visit Provider Family Medicine
DX: N17.9 Acute kidney failure, unspecified (principal); R74.8 Abnormal levels of other serum enzymes; E11.65 Type 2 diabetes mellitus with hyperglycemia

== ENCOUNTER → 2024-09-05 15:04 | Outpatient (BNVA) | payer OTHER, SELFPAY | PROVIDERS: PCP Family Medicine; Visit Provider Family Medicine ==

== ENCOUNTER 2024-10-04 13:32 | Outpatient (AMB) | payer OTHER, SELFPAY ==
--- NOTE | 2024-10-04 13:02 | A.OFFVIS_ITS ---
Vital Signs 10/04/24 13:35 Height 5 ft 3 in Weight 220 lb 7.396 oz BMI 39.0 BP 146/72 H Blood Pressure Location Rt brachial Position Sitting Pulse 94 Pulse Source Pulse Oximeter Intake Visit Reasons: DM Intake Note: Patient presents today for a follow-up on Type 2 Diabetes Mellitus: Last Diabetic eye exam was on: DUE Last Podiatry exam was on: Does not see a Operations Support Professionals Most recent HbA1c: 8.5%, 10/04/2024 Random Glucose- 274 mg/dL, Today Area Field Person Required: No Accompanied by: Self / Same As Patient Allergies Cephalosporins [CEPHALOSPORINS] Allergy (Intermediate, Verified 10/04/24 13:34) RASH oxycodone [From Tylox] Allergy (Intermediate, Verified 10/04/24 13:34) RASH Sulfa (Sulfonamide Antibiotics) [SULFA (SULFONAMIDE ANTIBIOTICS)] Allergy (Intermediate, Verified 10/04/24 13:34) RASH lisinopril Adverse Reaction (Severe, Verified 10/04/24 13:34) contraindication sulfamethoxazole [From Bactrim] Adverse Reaction (Severe, Verified 10/04/24 13:34) Rash trimethoprim [From Bactrim] Adverse Reaction (Severe, Verified 10/04/24 13:34) Rash naproxen [NAPROXEN] Adverse Reaction (Intermediate, Verified 10/04/24 13:34) contraindication HPI Comments Details: 74 YO female who is seen in follow-up for T2DM. She was seen as an initial consult with myself on 05/03/2024. 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 HgbA1C 04/10/24 8.4%, down from 10.0% She was last seen 06/14/25. HgbA1C % 8.5 10/04/24 Initially diagnosed with T2DM 1999. Was initially started on treatment with insulin and metformin, metformin was stopped due to low EGFR this was stopped 2018. GLP 1 agonist contraindicated due to history of gastroparesis requiring hospitalization Current regimen Lantus 60 units Humalog 2-16 units on a sliding scale starting at 150, going up by 2 units every 50 points jardiance 25mg takes humalog 3 times daily Checks sugars 1 times per day avg 199 lowest 138 highest 237 Denies retinopathy. Eye exam overdue and requests referral. Has nephropathy; with diminished EGFR 53 2022 no microalbumin in EHR Has neuropathy: Has symptoms of numbness, pain without cramping of the lower extremities. Saw Podiatry in the past and goes to a nail spa for pedicure Has gastroparesis requiring hospitalization in the past. Has CAD with implantable defibrillator. Followed by Dr. Costa at [facility] has appt July 2024 Spoke with her mobile application tester this am as she had substernal CP. Lacing Presser advised to continue nitro prn mr in 5 min x 2 then 911. Last seen by cardiology one week ago no medication changes NO reports of low glucose. Lowest recently 138 Treats lows with oj. [Checks] sugar after to ensure it is rising Family history of T2DM in [oldest son type 2]. Weight: Stable [facility] Medical History (Updated 09/05/24 @ 16:09 by Jose Wilkins) Diabetic neuropathy Anemia Type 2 diabetes mellitus with unspecified complications Atherosclerotic cardiovascular disease Cardiac resynchronization therapy defibrillator (UX CONSULTANT-D) in place Surgical History History of colonoscopy H/O endoscopy History of implantable cardioverter-defibrillator (ICD) placement (~02/09/17) History of cardiac catheterization (~08/2015) History of umbilical hernia repair History of appendectomy History of cholecystectomy History of tubal ligation Family History Father Myocardial infarction Mother Uterine cancer Lung cancer Maternal Aunt Uterine cancer Mouth cancer Social History Housing: House Patient Tobacco Use Status: Never used Tobacco e-Cigarette/Vaping Use: Never Used service: No Current occupational status: retired Current occupational exposures/hazards: No Cognitive needs: Yes Hearing needs: No Vision needs: Yes Physical Exam Const Other: Absence of Cushingoid features. Absence of acromegalic features. Neck exam reveals nl size thyroid about 15 gms. No thyroid nodules palpable. Heart S1 S2, Reg R/R. No M/R G. Skin exam reveals absence of vitiligo or acanthosis nigricans. Visual exam of foot performed. No ulcerations or open lesions. No inter digit maceration or fissuring. No onychomycosis, no callouses. Sensation intact to monofilament exam. Vibratory sensation is normal with 128 Hz tuning fork. unable to tedst cap refill has nail grenadian on mild edema skin warm Results AMB Hemoglobin A1c AMB Hemoglobin A1c 8.5 % Last Edit by CHUCK Llanes on 10/04/24 13:57 Assessment & Plan Assessment & Plan (1) Diabetes type 2, uncontrolled: Code(s): E11.65 - Type 2 diabetes mellitus with hyperglycemia Category: Medical Plan: 74-year-old type 2 diabetic with nephropathy and retinopathy with A1c 10/04/2024 8.5%. Given her age and comorbidities would like to see A1c less than 8%. She is testing just once per day and we will place an order for freestyle Danica 3+ along with a reader and see her back in approximately 4-6 weeks to review results. Once she receives the device she will schedule training with the Aimee SIMPSON Referral to Ophthalmology. She was counseled that if she does not receive this referral or the freestyle Danica within a week to 10 days to contact our office. The patient had an opportunity to ask questions regarding treatment plan. The patient expressed understanding and agreement with the above treatment plan. The patient is aware they should contact our office by phone for worsening glucose readings or for any low blood sugars which may warrant a change in diabetes medication. Compliance is encouraged with medications and any followup testing/consults which may have been ordered. Orders: Orders AMB Hemoglobin A1c Today E11.65 - Type 2 diabetes mellitus with hyperglycemia Referrals Ophthalmology Referral E11.65 - Type 2 diabetes mellitus with hyperglycemia Medications: New FreeStyle Danica 3 [place] (blood-glucose meter,continuous) As directed 1 ea 0RF NS E11.65 - Type 2 diabetes mellitus with hyperglycemia blood-glucose sensor (FreeStyle Danica 3 Plus Sensor device) every 15 days for use with reader 1 ea 0RF E11.65 - Type 2 diabetes mellitus with hyperglycemia blood-glucose sensor (FreeStyle Danica 3 Plus Sensor device) As directed 2 ea 11RF Patient Instructions: The patient was counseled to achieve a target A1C of 7% (154 avg). Fasting blood sugars should be 90-130 in the morning and less than 180 two hours after meals. Reviewed the relationship between poor diabetic control and the development of complications. Take 15 carb carbohydrate grams to treat a low sugar (3-4 glucose tablets, half a glass of juice or 15 carbohydrate grams of soft candy such as gummie snacks). Recheck your sugar in 15 minutes and re-treat again with 15 carbohydrate grams if low or still with symptoms. Do not drive a car or operate machinery if you do not know what your blood sugar is, if it is low or in excess of 300. Check your feet daily looking for any signs of infection, drainage, redness, ulceration and seek medical attention if this occurs. Break in shoes gradually and do not wear open-toed shoes or walk stocking footed or barefooted. Coding Level of Care Code Est Pt Level 5 (44902) Complex EM visit Add On G2211 Diagnoses Diabetes type 2, uncontrolled E11.65 Time Spent (min) 45 Comment Time spent reviewing labs/provider notes, face to face, chart doc
[2024-10-04 13:35] VITALS: BP 146/72; PULSE 94; BMI 39.0
--- OUTSIDE RECORDS SUMMARY | 2024-10-04 13:40 | XMS_ITS | Clinical Summary ---
Author Organization Unknown Care Team Providers Care Nuclear Physics Teacher Name Role Phone LATOYA MARTINEZ, SYLVAIN Unavailable Unavailable REY GRANT, [place] Unavailable Unavailable Payers Payer Name Policy Type Policy Number Effective Date Expira tion Date [facility] [id number] [place] [id number] [place] [id number] Problems Condition Name Condition Details Condition Category [...] 002 00:00: 00 09-05 23:59 :00 No [id number] Per instruc tions TWO (2) TIMES A DAY TO 3 (THREE) TIMES A DAY Per instructio ns TWO (2) TIMES A DAY TO 3 (THREE) TIMES A DAY (route: topical) Med Classific ation: Antisepti cs and Disinfect ants Eliquis 5 mg tablet 03-11 00:00: 00 Yes [id number] 1 tablet TWO (2) TIMES A DAY 1 tablet TWO (2) TIMES A DAY (route: oral) Med Classific ation: Hematolog ical Agents ferrous sulfate 324 mg (65 mg iron) tablet,jessica yed release 2020-08 00:00: 00 03-11 23:59 :00 No [id number] Per instruc tions DAILY Per instructio ns DAILY (route: oral) Med Classific ation: Electroly te Balance-N utritiona l Products gabapentin 400 mg capsule 2020-08 00:00: 00 03-11 23:59 :00 No [id number] Per instruc tions 3 (THREE) TIMES A DAY Per instructio ns 3 (THREE) TIMES A DAY (route: oral) Med Classific ation: Central Nervous System Agents metoprolol succinate ER 25 mg tablet,exte nded release 24 hr 2020-08 00:00: 00 03-11 23:59 :00 No [id number] Per instruc tions DAILY Per instructio ns DAILY (route: oral) Med Classific ation: Cardiovas cular Therapy Agents magnesium oxide 400 mg (241.3 mg magnesium) tablet 2020-08 00:00: 00 03-11 23:59 :00 No [id number] Per instruc tions DAILY Per instructio ns DAILY (route: oral) Med Classific ation: Electroly te Balance-N utritiona l Products atorvastati n 40 mg tablet 2020-08 00:00: 00 03-11 23:59 :00 No [id number] Per instruc tions DAILY Per instructio ns DAILY (route: oral) Med Classific ation: Cardiovas cular Therapy Agents isosorbide dinitrate 30 mg tablet 2020-08 00:00: 00 03-11 23:59 :00 No [id number] Per instruc tions TWO (2) TIMES A DAY Per instructio ns TWO (2) TIMES A DAY (route: oral) Med Classific ation: Cardiovas cular Therapy Agents clopidogrel 75 mg tablet 03-11 00:00: 00 Yes [id number] 1 tablet DAILY 1 tablet DAILY (route: oral) Med Classific ation: Hematolog ical Agents torsemide 20 mg tablet 2020-08 00:00: 00 03-11 23:59 :00 No [id number] Per instruc tions DAILY Per instructio ns DAILY (route: oral) Med Classific ation: Cardiovas cular Therapy Agents pantoprazol e 20 mg tablet,jessica yed release 2020-08 0- 00:00: 00 03-11 23:59 :00 No [id number] Per instruc tions DAILY Per instructio ns DAILY (route: oral) Med Classific ation: Gastroint estinal Therapy Agents Lantus Solostar U-100 Insulin 100 unit/mL (3 mL) subcutaneou s pen 2020-08 0 00:00: 00 03-11 23:59 :00 No [id number] Per instruc tions DAILY Per instructio ns DAILY (route: subcutaneo us) Med Classific ation: Endocrine acetaminoph en 325 mg tablet 03-11 00:00: 00 Yes [id number] 2 tablet 3 TIMES DAILY 2 tablet 3 TIMES DAILY (route: oral) Med Classific ation: Analgesic , Anti-infl ammatory or Antipyret ic atorvastati n 80 mg tablet 03-11 00:00: 00 Yes [id number] 1 tablet BEDTIME 1 tablet BEDTIME (route: oral) Med Classific ation: Cardiovas cular Therapy Agents duloxetine 20 mg capsule,del ayed release 03-11 00:00: 00 Yes [id number] 2 capsule DAILY 2 capsule DAILY (route: oral) Med Classific ation: Central Nervous System Agents ferrous sulfate 325 mg (65 mg iron) tablet 03-11 00:00: 00 Yes [id number] 1 tablet DAILY 1 tablet DAILY (route: oral) Med Classific ation: Electroly te Balance-N utritiona l Products furosemide 20 mg tablet 03-11 00:00: 00 04-19 23:59 :00 No [id number] 1 tablet DAILY 1 tablet DAILY (route: oral) Med Classific ation: Cardiovas cular Therapy Agents gabapentin 100 mg capsule 03-11 00:00: 00 Yes [id number] 2 capsule 3 TIMES DAILY 2 capsule 3 TIMES DAILY (route: oral) Med Classific ation: Central Nervous System Agents Lantus Solostar U-100 Insulin 100 unit/mL (3 mL) subcutaneou s pen 03-11 00:00: 00 Yes [id number] 20 unit BEDTIME 20 unit BEDTIME (route: subcutaneo us) Med Classific ation: Endocrine melatonin 5 mg capsule 03-11 00:00: 00 Yes [id number] 1 capsule DAILY 1 capsule DAILY (route: oral) Med Classific ation: Central Nervous System Agents metoprolol succinate ER 50 mg tablet,exte nded release 24 hr 03-11 00:00: 00 Yes [id number] 1 tablet DAILY 1 tablet DAILY (route: oral) Med Classific ation: Cardiovas cular Therapy Agents mirtazapine 15 mg disintegrat ing tablet 03-11 00:00: 00 Yes [id number] 1 tablet BEDTIME 1 tablet BEDTIME (route: oral) Med Classific ation: Central Nervous System Agents multivitami n tablet 03-11 00:00: 00 Yes [id number] 1 tablet DAILY 1 tablet DAILY (route: oral) Med Classific ation: Electroly te Balance-N utritiona l Products Nitrostat 0.4 mg sublingual tablet 03-11 00:00: 00 Yes [id number] 1 tablet NEEDED 1 tablet NEEDED (route: sublingual ) Med Classific ation: Cardiovas cular Therapy Agents pantoprazol e 40 mg tablet,jessica yed release 03-11 00:00: 00 Yes [id number] 1 tablet DAILY 1 tablet DAILY (route: oral) Med Classific ation: Gastroint estinal Therapy Agents quetiapine 200 mg tablet 03-11 00:00: 00 11-02 23:59 :00 No [id number] 1 tablet BEDTIME 1 tablet BEDTIME (route: oral) Med Classific ation: Central Nervous System Agents Senna Laxative 8.6 mg tablet 03-11 00:00: 00 Yes [id number] 2 tablet DAILY 2 tablet DAILY (route: oral) Med Classific ation: Gastroint estinal Therapy Agents valsartan 40 mg tablet 2023-0 7-21 00:00: 00 Yes [id number] 1 tablet DAILY 1 tablet DAILY (route: oral) Med Classific ation: Cardiovas cular Therapy Agents Lasix 40 mg tablet 8-29 00:00: 00 05-09 23:59 :00 No [id number] 1 tablet DAILY 1 tablet DAILY (route: oral) Med Classific ation: Cardiovas cular Therapy Agents Lasix 20 mg tablet 19 00:00: 00 11-02 23:59 :00 No [id number] 1 tablet DAILY 1 tablet DAILY (route: oral) Med Classific ation: Cardiovas cular Therapy Agents Seroquel 100 mg tablet 05-10 00:00: 00 11-02 23:59 :00 No [id number] 1 tablet BEDTIME 1 tablet BEDTIME (route: oral) Med Classific ation: Central Nervous System Agents Jardiance 10 mg tablet 2022-08 00:00: 00 Yes [id number] 1 tablet DAILY 1 tablet DAILY (route: oral) Med Classific ation: Endocrine Seroquel 100 mg tablet 17 00:00: 00 Yes [id number] 3 tablet BEDTIME 3 tablet BEDTIME (route: oral) Med Classific ation: Central Nervous System Agents torsemide 20 mg tablet 17 00:00: 00 Yes [id number] 1 tablet DAILY 1 tablet DAILY (route: oral) Med Classific ation: Cardiovas cular Therapy Agents isosorbide mononitrate ER 60 mg tablet,exte nded release 24 hr 2023-08 00:00: 00 Yes [id number] 1 tablet DAILY 1 tablet DAILY (route: oral) Med Classific ation: Cardiovas cular Therapy Agents Vital Signs Vital Name Observation Time Observation Value Commen ts Temperature 2024-10-01 09:37:00.000 97.9 [degF] Temperature 2024-09-27 11:01:00.000 97.9 [degF] Temperature 2024-09-24 09:08:00.000 97.9 [degF] Temperature 2024 08:53:00.000 97.9 [degF] Temperature 2024-09-17 09:14:00.000 97.9 [degF] Temperature 2024-09-13 09:23:00.000 97.9 [degF] Temperature 2024-09-10 08:49:00.000 97.9 [degF] Temperature 2024-09-06 08:54:00.000 97.9 [degF] Temperature 2024-09-03 08:47:00.000 97.9 [degF] Pulse 2024-10-01 09:37:00.000 82 /min Pulse 2024-09-27 11:01:00.000 77 /min Pulse 2024-09-24 09:08:00.000 76 /min Pulse 2024 08:53:00.000 76 /min Pulse 2024-09-17 09:14:00.000 76 /min Pulse 2024-09-13 09:23:00.000 76 /min Pulse 2024-09-10 08:49:00.000 77 /min Pulse 2024-09-06 08:54:00.000 75 /min Pulse 2024-09-03 08:47:00.000 78 /min O2 Saturation (%) 2024-10-01 09:37:00.000 97 % O2 Saturation (%) 2024-09-27 11:02:00.000 98 % O2 Saturation (%) 2024-09-24 09:09:00.000 97 % O2 Saturation (%) 2024 09:04:00.000 97 % O2 Saturation (%) 2024-09-17 09:15:00.000 98 % O2 Saturation (%) 2024-09-10 08:49:00.000 97 % O2 Saturation (%) 2024-09-06 08:55:00.000 97 % O2 Saturation (%) 2024-09-03 08:48:00.000 98 % Respirations 2024-10-01 09:37:00.000 20 /min Respirations 2024-09-27 11:01:00.000 20 /min Respirations 2024-09-24 09:08:00.000 20 /min Respirations 2024 08:53:00.000 20 /min Respirations 2024-09-17 09:14:00.000 20 /min Respirations 2024-09-13 09:23:00.000 20 /min Respirations 2024-09-10 08:49:00.000 18 /min Respirations 2024-09-06 08:54:00.000 20 /min Respirations 2024-09-03 08:47:00.000 20 /min Weight (lbs) 2024-10-01 09:37:00.000 215 [lb_av] Weight (lbs) 2024-09-27 11:02:00.000 215 [lb_av] Weight (lbs) 2024-09-24 09:09:00.000 215 [lb_av] Weight (lbs) 2024 09:04:00.000 212 [lb_av] Weight (lbs) 2024-09-17 09:18:00.000 215 [lb_av] Weight (lbs) 2024-09-10 08:49:00.000 212 [lb_av] Weight (lbs) 2024-09-06 08:55:00.000 211 [lb_av] Weight (lbs) 2024-09-03 08:48:00.000 212 [lb_av] Systolic Blood Pressure 2024-10-01 09:37:00.000 129 mm [Hg] Systolic Blood Pressure 2024-09-27 11:01:00.000 127 mm [Hg] Systolic Blood Pressure 2024-09-24 09:08:00.000 124 mm [Hg] Systolic Blood Pressure 2024 08:53:00.000 130 mm [Hg] Systolic Blood Pressure 2024-09-17 09:14:00.000 135 mm [Hg] Systolic Blood Pressure 2024-09-13 09:23:00.000 128 mm [Hg] Systolic Blood Pressure 2024-09-10 08:49:00.000 137 mm [Hg] Systolic Blood Pressure 2024-09-06 08:54:00.000 136 mm [Hg] Systolic Blood Pressure 2024-09-03 08:47:00.000 129 mm [Hg] Diastolic Blood Pressure 2024-10-01 09:37:00.000 82 mm [Hg] Diastolic Blood Pressure 2024-09-27 11:01:00.000 76 mm [Hg] Diastolic Blood Pressure 2024-09-24 09:08:00.000 82 mm [Hg] Diastolic Blood Pressure 2024 08:53:00.000 88 mm [Hg] Diastolic Blood Pressure 2024-09-17 09:14:00.000 76 mm [Hg] Diastolic Blood Pressure 2024-09-13 09:23:00.000 76 mm [Hg] Diastolic Blood Pressure 2024-09-10 08:49:00.000 78 mm [Hg] Diastolic Blood Pressure 2024-09-06 08:54:00.000 78 mm [Hg] Diastolic Blood Pressure 2024-09-03 08:47:00.000 [...] AWARENESS FOR SAFETY AND WILL NOTIFY CLINICAL VICE PRESIDENT & GENERAL MANAGER [place] AND PHYSICIAN/PROVIDER WITH ANY CHANGE IN CONDITION. [code = SKILLED NURSE WILL MAINTAIN SITUATIONAL AWARENESS FOR SAFETY AND WILL NOTIFY CLINICAL VICE PRESIDENT & GENERAL MANAGER [place] [place] AND PHYSICIAN/PROVIDER WITH ANY CHANGE IN CONDITION.] [...] DEPRESSION Goal 2023-09-05 Patient Goal - P Guera HAS BEEN HOMELESS AND SHE DOES NOT WANT A REPEAT THIS HAS STRESSED HER QUITE A GREAT DEAL LEADING TO CHEST PAINS, ANXIETY AND MAJOR DEPRESSION Goal 2023-11-03 Patient Goal - P Guera HAS BEEN HOMELESS AND SHE DOES NOT WANT A REPEAT THIS HAS STRESSED HER QUITE A GREAT DEAL LEADING TO CHEST PAINS, ANXIETY AND MAJOR DEPRESSION Goal 2024-01-02 Patient Goal - P Guera HAS BEEN HOMELESS AND SHE DOES NOT WANT A REPEAT THIS HAS STRESSED HER QUITE A GREAT DEAL LEADING TO CHEST PAINS, ANXIETY AND MAJOR DEPRESSION Goal 2024-03-01 Patient Goal - P Guera HAS BEEN HOMELESS AND SHE DOES NOT WANT A REPEAT THIS HAS STRESSED HER QUITE A GREAT DEAL LEADING TO CHEST PAINS, ANXIETY AND MAJOR DEPRESSION Goal 2024-04-30 Patient Goal - P Guera HAS BEEN HOMELESS AND SHE DOES NOT WANT A REPEAT THIS HAS STRESSED HER QUITE A GREAT DEAL LEADING TO CHEST PAINS, ANXIETY AND MAJOR DEPRESSION Goal 2024-06-28 Patient Goal - P Guera HAS BEEN HOMELESS AND SHE DOES NOT WANT A REPEAT THIS HAS STRESSED HER QUITE A GREAT DEAL LEADING TO CHEST PAINS, ANXIETY AND MAJOR DEPRESSION Goal 2024-08-27 Patient Goal - P Guera HAS BEEN HOMELESS AND SHE DOES NOT WANT A REPEAT THIS HAS STRESSED HER QUITE A GREAT DEAL LEADING TO CHEST PAINS, ANXIETY AND MAJOR DEPRESSION Goal Patient Goal - P Guera HAS BEEN HOMELESS AND SHE DOES NOT WANT A REPEAT THIS HAS STRESSED HER QUITE A GREAT DEAL LEADING TO CHEST PAINS, ANXIETY AND MAJOR DEPRESSION Goal Provider Goal - A PLAN OF CARE WILL BE ESTABLISHED THAT MEETS PATIENT'S GROUP HOME NEEDS AND INCLUDES PATIENT GOAL FOR HOME [...] End Date/Time Encounter Type Admission Type Attending [facility] Care Department Encounter ID Discharge Date Discharge Status Discharge Condition Discharge Reason Percent Goals Met 2023-03-11 00:00:00 2024-10-30 00:00:00 Outpatient RECERTIFIC ATION [place] [facility] [id number] 14.29
--- OUTSIDE RECORDS SUMMARY | 2024-10-04 13:40 | XMS_ITS | Data Portability ---
Author Organization [place] [facility] Address [address] [place] [address] Assessment No assessment recorded. Plan of Treatment Reminders Order Date Submit Date Provider Last Modified By Organization Details Last Modified Time Details Appointments None recorded. Lab colon cancer screening, stool 2018 019 [email or web address] [facility] (Cologuard Orders Only), [address], [address], [place], [address], 9 14:04:[address] referral - hx NSTEMI, has pacemaker -[facility] (Patient wants to be seen in [place]) 2018 019 [email or web address] [facility], [address] [place], [address], 9 08:13:24 Procedures venipunctu re routine (PROC) 2018 019 [email or web address] Not available 9 07:25:47 Surgeries None recorded. Imaging MAMMO, screening, digital, bilateral 2018 0[email or web address], [address] [place], [address], 9 14:53:53 Medication Orders torsemide 5 mg tablet [address] [facility] [place], [address], 9 16:51:42 ferrous sulfate 325 mg (65 mg iron) tablet 2018 019 [facility] [place], [address], 9 12:39:12 Lantus Solostar U-100 Insulin 100 unit/mL (3 mL) subcutaneo us pen 2018 019 [facility] [address] [place], [address], 9 12:39:10 Novolog FlexPen U-100 Insulin aspart 100 unit/mL (3 mL) subcutaneo us 2018 019 [facility] [address] [place], [address], 9 12:39:12 torsemide 20 mg tablet [address], [address] [place], [address], 9 09:35:32 mirtazapin e 15 mg disintegra ting tablet 2018 [facility], [address] [place], [address], 9 12:39:12 gabapentin 400 mg capsule 2018 [facility] [address] [place], [address], 9 12:39:09 Eliquis 5 mg tablet 2018 019 [facility], [address] [place], [address], 9 12:57:12 omeprazole 20 mg capsule,de layed release 2018 [facility] [address] [place], [address], 9 12:39:09 quetiapine 300 mg tablet 2018 019 [facility] [address], [address] [place], [address], 9 12:39:10 citalopram 20 mg tablet 2018 019 [facility] [address] [place], [address], 9 12:39:11 atorvastat in 40 mg tablet 2018 [email or web address] [facility] [address] [place], [address], 9 18:15:56 Patient TargetsNo targets recorded. Patient Instructions Encounter Date Encounter Id Patient Instructions Last Modified By Organization Details Last Modified Time 01/12/2019 [id number] It was nice meeting you! Labs look good other than your blood sugar and hemoglobin A1C. We need to make adjustments to your DM regime. I have increased lantus to 60 units daily for now. continue checking your sugars as you have been and right them down. Bring them to your next appointment. I sent a referral for cardiology. You will hear from them to schedule I have also sent an order for mammogram. You will get a call from the hospital to schedule that. I have refilled all your medicines. Call with any questions or concerns! [email or web address] Not available 01/12/2019 15:25:48 01/24/2019 [id number] -Hold the torsemide -Come back and see me Tuesday morning. -We will likely get you on a 24 hour blood pressure monitor when we see you Tuesday. Not available 01/25/2019 15:16:04 01/26/2019 [id number] -Let's restart the torsemide at a low dose. We need to balance your BP and the edema. -BP recheck on Tuesday -We will likely schedule you for a continuous BP monitor next week. -ER if you experience dizziness or SOB. -Call us if you have any questions. Not available 01/26/2019 09:38:26 01/31/2019 [id number] -Continue on current dose of torsemide -Drink plenty of water. 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 Pleas e conta ct the labor atory to reord er this test if clini brinda indic ated. Test Type: Princess Anne site algor ithmi c cheryl sis of stool DNA-b karina zamora with hemog lobin immun oassa y. Quant itati ve value s of indiv idual bioma rkers are not repor table and are not assoc iated with indiv idual bioma rker resul t refer ence range s. Preca ution s and Limit ation s: Colog uard is inten ded for color ectal cance r scree demarco of adult s of eithe r sex, 45 years or older , who are at [facility] for CRC. Colog uard has been appro jaxson for use by the [place] FDA. Colog uard may produ ce a false negat katelynn or false posit katelynn resul t. A negat katelynn Colog uard test resul t does not guara ntee the absen ce of color ectal cance r (CRC) or advan shana adeno ma (pre- cance r). Patie nts with a negat katelynn Colog uard test resul t shoul d be advis ed to ashu nue parti cipat ing in a color ectal cance r scree demarco progr am. The scree demarco inter zaid for Colog uard is curre ntly recom naima d at an inter zaid of every 3 years by the [place] can Cance r Socie ty and U.S. Multi -Soci ety Task Force . A false posit katelynn resul t occur s when Colog uard produ mago a posit katelynn resul t, even thoug h a colon oscop y may not find color ectal cance r or preca ncero us polyp s. The perfo rmanc e of Colog uard has been estab lishe d in a cross secti onal study (i.e. , singl e point in time) of [facility] adult s aged 50-84 . Colog uard perfo rmanc e in patie nts ages 45 to 49 years was estim ated by zac-jaun deshpande cheryl sis of near- age group s. Colog uard perfo rmanc e data in a 10,00 0 patie nt pivot al study using colon oscop y as the refer nicholas pepper can be acces sed at the follo wing locat ion: www.e xactl abs.c om/re carolin . Addit ional descr iptio n of the Colog uard test proce ss, warni ngs and preca ution s can be found at www.c [facility].nj m. Rx only. Not Available [facility] (Cologuard Orders Only) [address], [place], [address], 01/14/2020 05:59:11 12/22/19 19 12/21/2018 elect lionel diazgr am Rate & Rhythm Paced 70's Not Available [address], [address], 12/21/2018 15:59:02 12/22/19 19 12/21/2018 elect lionel diazgr am QRS 150 Not Available [address], [address], 12/21/2018 15:59:02 12/22/19 19 12/21/2018 elect lionel diogr am DE Interval 108/12 4 Not Available [address], [address], 12/21/2018 15:59:02 12/22/19 19 12/21/2018 jose smith am QT Interval 458/49 8 Not Available [address], [address], 12/21/2018 15:59:02 01/05/20 19 01/05/2019 CBC w/ auto diff WBC 6.8 x10e3 /uL 3.4-10 .8 Not Available [facility] ([facility]) [address] [place], [address], 01/05/2019 09:12:04 01/05/2001/05/2019 CBC w/ auto diff RBC 4.27 x10e6 /uL 3.77-5 .28 Not Available [facility] ([facility]) [address] [place], [address], 01/05/2019 09:12:04 01/05/20 19 01/05/2019 CBC w/ auto diff hemoglobin 13.0 g/dL 11.1-1 5.9 Not Available [facility] ([facility]) [address] [place], [address], 01/05/2019 09:12:04 01/05/20 19 01/05/2019 CBC w/ auto diff hematocrit 41.0 % 34.0-4 6.6 Not Available [facility] ([facility]) [address] [place], [address], 01/05/2019 09:12:04 01/05/20 19 01/05/2019 CBC w/ auto diff MCV 96 fL 79-97 Not Available [facility] ([facility]) [address] [place], [address], 01/05/2019 09:12:04 01/05/20 19 01/05/2019 CBC w/ auto diff MCH 30.4 pg 26.6-3 3.0 Not Available [facility] ([facility]) [address] [facility] [place], [address], 01/05/2019 09:12:04 01/05/2001/05/2019 CBC w/ auto diff MCHC 31.7 g/dL 31.5-3 5.7 Not Available [facility] ([facility]) [address] [facility], [place], [address], 01/05/2019 09:12:04 01/05/2001/05/2019 CBC w/ auto diff RDW 14.6 % 12.3-1 5.4 Not Available [facility] ([facility]) [address] [facility], [place], [address], 01/05/2019 09:12:04 01/05/2001/05/2019 CBC w/ auto diff platelets 166 x10e3 /uL 150-37 9 Eff ectiv e January 08, 2019 the refer ence inter zaid for Plate lets will be watters ing to: 0 - 7 d 140 - 396 x10E3 /uL 8 - 30 d 139 - 531 x10E3 /uL 31 d - 999 yrs 150 - 450 x10E3 /uL Not Available [facility] ([facility]) [address] [facility], [place], [address], 01/05/2019 09:12:04 01/05/2001/05/2019 CBC w/ auto diff neutrophils 63 % not estab. Not Available [facility] ([facility]) [address] [facility], [place], [address], 01/05/2019 09:12:04 01/05/2001/05/2019 CBC w/ auto diff lymphs 24 % not estab. Not Available [facility] ([facility]) [address] [place], [address], 01/05/2019 09:12:04 01/05/2001/05/2019 CBC w/ auto diff monocytes 6 % not estab. Not Available [facility] ([facility]) [address] [facility], [place], [address], 01/05/2019 09:12:04 01/05/2001/05/2019 CBC w/ auto diff eos 5 % not estab. Not Available [facility] ([facility]) [address] [place], [address], 01/05/2019 09:12:04 01/05/2001/05/2019 CBC w/ auto diff basos 1 % not estab. Not Available [facility] ([facility]) [address] [facility], [place], [address], 01/05/2019 09:12:04 01/05/2001/05/2019 CBC w/ auto diff immature cells EXPERIMENTAL ROCKETSLED MECHANIC Not Available [facility] ([facility]) [address] [place], [address], 01/05/2019 09:12:04 01/05/2001/05/2019 CBC w/ auto diff neutrophils (absolute) 4.2 x10e3 /uL 1.4-7. 0 Not Available [facility] ([facility]) [address] [place], [address], 01/05/2019 09:12:04 01/05/20 19 01/05/2019 CBC w/ auto diff lymphs (absolute) 1.7 x10e3 /uL 0.7-3. 1 Not Available [facility] ([facility]) [address] [place], [address], 01/05/2019 09:12:04 01/05/20 19 01/05/2019 CBC w/ auto diff monocytes(ab solute) 0.4 x10e3 /uL 0.1-0. 9 Not Available [facility] ([facility]) [address] [place], [address], 01/05/2019 09:12:04 01/05/20 19 01/05/2019 CBC w/ auto diff eos (absolute) 0.4 x10e3 /uL 0.0-0. 4 Not Available [facility] ([facility]) [address] [facility], [place], [address], 01/05/2019 09:12:04 01/05/2001/05/2019 CBC w/ auto diff baso (absolute) 0.1 x10e3 /uL 0.0-0. 2 Not Available [facility] ([facility]) [address] [place], [address], 01/05/2019 09:12:04 01/05/20 19 01/05/2019 CBC w/ auto diff immature granulocytes 1 % not estab. Not Available [facility] ([facility]) [address] [place], [address], 01/05/2019 09:12:04 01/05/2001/05/2019 CBC w/ auto diff immature grans (abs) 0.1 x10e3 /uL 0.0-0. 1 Not Available [facility] ([facility]) [address] [place], [address], 01/05/2019 09:12:04 01/05/2001/05/2019 CBC w/ auto diff NRBC EXPERIMENTAL ROCKETSLED MECHANIC Not Available [facility] ([facility]) [address] [place], [address], 01/05/2019 09:12:04 01/05/2001/05/2019 CBC w/ auto diff hematology comments: EXPERIMENTAL ROCKETSLED MECHANIC Not Available [facility] ([facility]) [address] [place], [address], 01/05/2019 09:12:04 01/05/2001/05/2019 CMP, serum or plasm a glucose 473 mg/dL 65-99 above high normal Not Available [facility] ([facility]) [address] [place], [address], 01/05/2019 09:12:05 01/05/20 19 01/05/2019 CMP, serum or plasm a BUN 24 mg/dL 8-27 Not Available [facility] ([facility]) [address] [facility] [place], [address], 01/05/2019 09:12:05 01/05/2001/05/2019 CMP, serum or plasm a creatinine 1.11 mg/dL 0.57-1 .00 above high normal Not Available [facility] ([facility]) [address] [facility] [place], [address], 01/05/2019 09:12:05 01/05/2001/05/2019 CMP, serum or plasm a eGFR if nonafricn AM 51 mL/mi n/1.7 3 >59 below low normal Not Available [facility] ([facility]) [address] [facility] [place], [address], 01/05/2019 09:12:05 01/05/2001/05/2019 CMP, serum or plasm a eGFR if africn AM 59 mL/mi n/1.7 3 >59 below low normal Not Available [facility] ([facility]) [address] [facility] [place], [address], 01/05/2019 09:12:05 01/05/2001/05/2019 CMP, serum or plasm a BUN/creatini ne ratio 22 12-28 Not Available [facility] ([facility]) [address] [facility] [place], [address], 01/05/2019 09:12:05 01/05/2001/05/2019 CMP, serum or plasm a sodium 137 mmol/ L 134-14 4 Not Available [facility] ([facility]) [address] [facility] [place], [address], 01/05/2019 09:12:05 01/05/2001/05/2019 CMP, serum or plasm a potassium 4.7 mmol/ L 3.5-5. 2 Not Available [facility] ([facility]) [address] [facility] [place], [address], 01/05/2019 09:12:05 01/05/20 19 01/05/2019 CMP, serum or plasm a chloride 97 mmol/ L 96-106 Not Available [facility] ([facility]) [address] [facility] [place], [address], 01/05/2019 09:12:05 01/05/20 19 01/05/2019 CMP, serum or plasm a carbon dioxide, total 24 mmol/ L 20-29 Not Available [facility] ([facility]) [address] [place], [address], 01/05/2019 09:12:05 01/05/2001/05/2019 CMP, serum or plasm a calcium 9.5 mg/dL 8.7-10 .3 Not Available [facility] ([facility]) [address] [place], [address], 01/05/2019 09:12:05 01/05/20 19 01/05/2019 CMP, serum or plasm a protein, total 6.3 g/dL 6.0-8. 5 Not Available [facility] ([facility]) [address] [place], [address], 01/05/2019 09:12:05 01/05/20 19 01/05/2019 CMP, serum or plasm a albumin 4.1 g/dL 3.6-4. 8 Not Available [facility] ([facility]) [address] [place], [address], 01/05/2019 09:12:05 01/05/20 19 01/05/2019 CMP, serum or plasm a globulin, total 2.2 g/dL 1.5-4. 5 Not Available [facility] ([facility]) [address] [place], [address], 01/05/2019 09:12:05 01/05/20 19 01/05/2019 CMP, serum or plasm a A/G ratio 1.9 1.2-2. 2 Not Available [facility] ([facility]) [address] [place], [address], 01/05/2019 09:12:05 01/05/2001/05/2019 CMP, serum or plasm a bilirubin, total <0.2 mg/dL 0.0-1. 2 Not Available [facility] ([facility]) [address] [place], [address], 01/05/2019 09:12:05 01/05/20 19 01/05/2019 CMP, serum or plasm a alkaline phosphatase 132 IU/L 39-117 above high normal Not Available [facility] ([facility]) [address] [place], [address], 01/05/2019 09:12:05 01/05/2001/05/2019 CMP, serum or plasm a AST (SGOT) 16 IU/L 0-40 Not Available [facility] ([facility]) [address] [place], [address], 01/05/2019 09:12:05 01/05/2001/05/2019 CMP, serum or plasm a ALT (SGPT) 18 IU/L 0-32 Not Available [facility] ([facility]) [address] [place], [address], 01/05/2019 09:12:05 01/05/2001/05/2019 lipid panel , serum cholesterol, total 195 mg/dL 100-19 9 Not Available [facility] ([facility]) [address] [place], [address], 01/05/2019 09:12:06 01/05/2001/05/2019 lipid panel , serum triglyceride s 200 mg/dL 0-149 above high normal Not Available [facility] ([facility]) [address] [place], [address], 01/05/2019 09:12:06 01/05/20 19 01/05/2019 lipid panel , serum HDL cholesterol 58 mg/dL >39 Not Available [facility] ([facility]) [address] [place], [address], 01/05/2019 09:12:06 01/05/2001/05/2019 lipid panel , serum VLDL cholesterol shruthi 40 mg/dL 5-40 Not Available [facility] ([facility]) [address] [place] [address], [address], 01/05/2019 09:12:06 01/05/2001/05/2019 lipid panel , serum LDL cholesterol calc 97 mg/dL 0-99 Not Available [facility] ([facility]) [address] [place], [address], 01/05/2019 09:12:06 01/05/2001/05/2019 lipid panel , serum comment: EXPERIMENTAL ROCKETSLED MECHANIC Not Available [facility] ([facility]) [address] [place], [address], 01/05/2019 09:12:06 01/05/2001/05/2019 iron + total iron- yoko ng capac ity (TIBC ), serum iron bind.cap.(TI BC) 296 ug/dL 250-45 0 Not Available [facility] ([facility]) [address] [place], [address], 01/05/2019 09:12:06 01/05/2001/05/2019 iron + total iron- yoko ng capac ity (TIBC ), serum UIBC 244 ug/dL 118-36 9 Not Available [facility] ([facility]) [address] [place], [address], 01/05/2019 09:12:06 01/05/2001/05/2019 iron + total iron- yoko ng capac ity (TIBC ), serum iron 52 ug/dL 27-139 Not Available [facility] ([facility]) [address] [place], [address], 01/05/2019 09:12:06 01/05/20 19 01/05/2019 iron + total iron- yoko ng capac ity (TIBC ), serum iron saturation 18 % 15-55 Not Available [facility] ([facility]) [address] [place], [address], 01/05/2019 09:12:06 01/05/2001/05/2019 vitam in B12 + folat e, serum or blood vitamin B12 440 pg/mL 232-12 45 Not Available [facility] ([facility]) [address] [place], [address], 01/05/2019 09:12:07 01/05/2001/05/2019 vitam in B12 + folat e, serum or blood folate (folic acid), serum 11.0 NG/mL >3.0 A serum folat e kimmie ntrat ion of less than 3.1 ng/mL is consi dered to repre sent clini shruthi defic iency . Not Available [facility] ([facility]) [address] [facility], [place], [address], 01/05/2019 09:12:07 01/05/2001/05/2019 HbA1c (hemo globi n A1c), blood hemoglobin A1C 11.0 % 4.8-5. 6 above high normal Predi abete s: 5.7 - 6.4 Diabe myke: >6.4 Glyce valentín contr ol for adult s with diabe myke: <7.0 Not Available [facility] ([facility]) [address] [place], [address], 01/05/2019 09:12:07 01/05/2001/05/2019 keven tin, serum or plasm a ferritin, serum 52 NG/mL 15-150 Not Available [facility] ([facility]) [address] [place], [address], 01/05/2019 09:12:08 03/01/2003/01/2019 XR, chest , 2 view No observ ation record ed. [email or web address] Not Available 2018 17:48:45 03/01/20 19 03/01/2019 CT, chest , w/ contr ast No observ ation record ed. [email or web address] Not Available 2018 12:24:57 03/15/20 19 03/15/2019 XR, chest , 2 view No observ ation record ed. [email or web address] [place] [address] Radiology [address] [facility], [place], [address], 03/16/2019 08:07:13 03/29/20 19 03/29/2019 MAMMO , scree demarco, digit al, bilat eral No observ ation record ed. [email or web address] Not Available 2018 06:54:46 05/09/20 19 05/09/2019 XR, chest , 2 view No observ ation record ed. [email or web address] Not Available 2018 20:44:52 05/09/20 19 05/09/2019 CT, abdom en + pelvi s, w/ contr ast No observ ation record ed. [email or web address] Not Available 2018 20:43:47 08/13/20 19 08/13/2019 US, echoc ardio gram No observ ation record ed. [address] [place], [address], 08/13/2019 14:33:03 08/13/20 19 08/13/2019 US, echoc ardio gram No observ ation record ed. [address] [place], [address], 08/13/2019 14:32:45 Result Notes None recorded. Problems Name Problem SNOMED Code Status Onset Date Resolution Date Notes Provider Name and Address Organization Details Recorded Time Congestive heart failure 25094782 Active 2018 Alis umana [facility] 9 09:57:57 Coronary arterioscleros is 41880990 Active 2018 Alis umana [facility] 9 09:58:16 Chronic obstructive pulmonary disease 40779018 [facility] 09:58:22 Kidney disease 34749113 Active 2018 Alis Brenda [facility] 9 09:58:32 Monitoring of pacemaker 13632562 Active 2018 Alis Brenda [facility] 9 09:58:46 Pulmonary embolism 90497397 Active 2018 Alis Brenda [facility] 9 09:59:03 Diabetes mellitus 98230712 Active 2018 [facility] 9 10:06:13 Depressive disorder 83632604 Active 2018 [facility] 9 10:15:09 Acute non-ST segment elevation myocardial infarction 773817804 Active 2018 [facility] 9 10:15:28 Opioid abuse 2726371 Active 2018 [facility] 9 10:15:48 Left bundle branch block 82890304 Active 2018 [facility] 9 10:16:12 Hypertensive disorder 46712277 Active 2018 [facility] 9 10:16:19 Gastroesophage al reflux disease 684536850 Active 2018 [facility] 9 10:16:25 Dyslipidemia 404606819 Active 2018 [facility] 9 10:16:37 Anxiety 76567086 Active 2018 [facility] 9 10:16:51 Problem Notes None recorded. Procedures Surgical History Date Name Laterality Status Provider Name and Address Organization Details Recorded Time 01/05/20 19 Venipuncture completed Cassy Maki [facility] 01/04/2019 10:47:25 procedure on gallbladder completed [facility] 12/21/2018 10:00:31 Appendectomy completed [facility] 12/21/2018 10:00:48 cardiac pacemaker procedure completed [facility] 12/21/2018 10:00:57 Tubal Ligation completed [facility] 12/21/2018 10:01:12 Hernia Repair completed [facility] 12/21/2018 10:01:22 Imaging Results Imaging Date Name Status LastModified by Organization Details LastModified Time 03/01/2019 XR, chest, 2 view completed Informa tion not available 03/01/2019 17:48:45 03/01/2019 CT, chest, w/ contrast completed Information not available 03/02/2019 12:24:57 03/15/2019 XR, chest, 2 view completed [facility]iology [address] [facility], [place], [address], 03/16/2019 08:07:13 03/29/2019 MAMMO, screening, digital, bilateral completed Information not available 04/04/2019 06:54:46 05/09/2019 XR, chest, 2 view completed Informa tion not available 05/09/2019 20:44:52 05/09/2019 CT, abdomen + pelvis, w/ contrast completed Information not available 05/09/2019 20:43:47 08/13/2019 US, echocardiogram completed [address] [place], [address], 08/13/2019 14:33:03 08/13/2019 US, echocardiogram completed [address] [place], [address], 08/13/2019 14:32:45 Procedure Notes None recorded. Medical Equipment None Reported. Allergies Allergen ID Allergen Name Allergen Category Reaction Reaction Severity Criticality Documentation Date Start Date Code Code System Note Provider Name and Address Organization Details Recorded Time 3563 Bactrim medicatio n Not available Not available Not available 12/21/2018 75389 9 RxNorm [facility] 9 09:54:20 3564 Substance with sulfonami de structure and antibacte rial mechanism of action (substanc e) medicatio n Not available Not available Not available 12/21/2018 81492 8003 SNOMED [facility] 9 09:54:26 3565 naproxen medicatio n Not available Not available Not available 12/21/2018 7258 RxNorm [facility] 9 09:54:33 3566 Product containin g cephalosp arturo (product) medicatio n Not available Not available Not available 12/21/2018 00837 [facility] Medications Name Sig Start Date Stop Date Status Note LastModified by Organization Details LastModified Time cyclobenzap rine 10 mg tablet 01/12 completed Not Available Not Available Not Available atorvastati n 40 mg tablet Take 1 tablet every day by oral route for 30 days. 07/12 completed Not Available Not Available Not Available atorvastati n 80 mg tablet active Not Available Not Available Not Available torsemide 20 mg tablet Take 1 tablet every day by oral route for 30 days. 01/26 completed Not Available Not Available Not Available quetiapine 300 mg tablet Take 1 tablet every day by oral route for 30 days. active Not Available Not Available No t Available isosorbide mononitrate ER 30 mg tablet,exte nded release 24 hr Take 1 tablet every day by oral route. active Not Available Not Available No t Available gabapentin 400 mg capsule Take 1 capsule 3 times a day by oral route for 30 days. active Not Available Not Available No t Available torsemide 10 mg tablet 0.5 tablet daily PO 2018 active Not Available Not Available Not Avai lable clopidogrel 75 mg tablet Take 1 tablet every day by oral route for 30 days. 2018 active Not Available Not Available Not Avai lable tramadol 50 mg tablet active Not Available Not Available No t Available bisoprolol fumarate 5 mg tablet Take 0.5 tablets every day by oral route for 30 days. 2018 active Not Available Not Available Not Avai lable citalopram 20 mg tablet Take 1 tablet every day by oral route for 30 days. active Not Available Not Available No t Available ascorbic acid (vitamin C) 500 mg tablet active Not Available Not Available Not Available potassium citrate ER 10 mEq (1,080 mg) tablet,exte nded release active Not Available Not Available Not Available torsemide 5 mg tablet Take 1 tablet every day by oral route for 30 days. 2018 active Not Available Not Available Not Avai lable ferrous sulfate 325 mg (65 mg iron) tablet Take 1 tablet every day by oral route for 30 days. 2018 active Not Available Not Available Not Avai lable nitroglycer in 0.4 mg sublingual tablet active Not Available Not Available Not Available omeprazole 20 mg capsule,del ayed release Take 1 capsule every 12 hours by oral route for 30 days. active Not Available Not Available No t Available mirtazapine 15 mg tablet active Not Available Not Available Not Available mirtazapine 15 mg disintegrat ing tablet Place 1 tablet every day by transling ual route at bedtime for 30 days. active Not Available Not Available No t Available doxycycline hyclate 100 mg tablet active Not Available Not Available No t Available iron 65 mg tablet Take by oral route. 01/12 completed Not Available Not Available Not Available Novolog FlexPen U-100 Insulin aspart 100 unit/mL (3 mL) subcutaneou s Inject 55 units every day by subcutane ous route as needed for 30 days. active Not Available Not Available No t Available BD Ultra-Fine Mini Pen Needle 31 gauge x 3/16 active Not Available Not Available Not Available ferrous sulfate 352mg PO daily 01/05 completed Not Available Not Available Not Available Aspir-81 active Not Available Not Avai lable Not Available Novolog FlexPen U-100 Insulin active Not Available Not Available Not Available BD Ultra-Fine Short Pen Needle 31 gauge x 5/16 active Not Available Not Available Not Available FreeStyle Lite Strips Take 1 strip 3 times a day by miscell. route for 30 days. 2018 active Not Available Not Available Not Avai lable Lantus Solostar U-100 Insulin 100 unit/mL (3 mL) subcutaneou s pen Inject 60 units every day by subcutane ous route at bedtime for 30 days. active Not Available Not Available No t Available Lantus Solostar U-100 Insulin 07/12 completed Not Available Not Available Not Available Eliquis 5 mg tablet Take 1 tablet twice a day by oral route for 30 days. active Not Available Not Available No t Available magnesium 400 mg (as magnesium oxide) tablet Take 1 tablet every day by oral route for 30 days. 2018 active Not Available Not Available Not Avai lable Vitals Date Recorded Body weight Body mass index (BMI) Body height Heart rate Oxygen saturation Oxygen saturation in Arterial blood by Pulse oximetry Systolic blood pressure Diastolic blood pressure Provider Name and Address Organization Details Last Updated DateTime 9 62888.3 6 g 38.1 kg/m2 160.02 cm 88 /min 98 % 98 % 110 mm[Hg] 68 mm[Hg] Maribel rodríguez [facility] 9 14:17:58 Date Recorded Body temperature Heart rate Oxygen saturation Oxygen saturation in Arterial blood by Pulse oximetry Systolic blood pressure Diastolic blood pressure Provider Name and Address Organization Details Last Updated DateTime 9 97.7 [degF] 71 /min 93 % 93 % 106 mm[Hg] 63 mm[Hg[facility] 16:14:49 Date Recorded Body height Body temperature Body mass index (BMI) Body weight Oxygen saturation Oxygen saturation in Arterial blood by Pulse oximetry Heart rate Systolic blood pressure Diastolic blood pressure Provider Name and Address Organization Details Last Updated DateTime 9 160.02 cm 97.5 [degF] 38.3 kg/m2 03894.9 5 g 95 % 95 % 77 /min 121 mm[Hg] 67 mm[Hg[facility] 09:14:33 Date Recorded Body height Body mass index (BMI) Body weight Body temperature Oxygen saturation Oxygen saturation in Arterial blood by Pulse oximetry Heart rate Systolic blood pressure Diastolic blood pressure Systolic blood pressure Diastolic blood pressure Provider Name and Address Organization Details Last Updated DateTime 9 160.02 cm 39.4 kg/m2 074583. 22 g 97.7 [degF] 97 % 97 % 77 /min 144 mm[Hg] 73 mm[Hg] 127 mm[Hg] 78 mm[Hg] Sara Warren [facility] 9 15:37:01 Social History Question Answer Notes LastModified by Organ[employer]at [employer] Details LastModified Time Tobacco Smoking Status [facility] 10:00:17 Do You Have An Advance Directive? No Information not available 12/21/2018 What Is Your Level Of Caffeine Consumption? Occasional Information not available 12/21/2018 What Type Of Diet Are You Following? DIABETIC Information not available 12/21/2018 Which Illicit Or Recreational Drugs Have You Used? Denies Information not available 12/21/2018 Drugs Abused Denies Information not available 12/21/2018 Do You Have A Medical Power Of Linux Administrator? No Information not available 12/21/2018 What Was The Date Of Your Most Recent Tobacco Screening? 01/26/2019 Information not available 03/15/2019 Seat Belts Used Routinely Yes Information not available 12/21/2018 Do You Have Smoke And Carbon Monoxide Detectors In Your Home? Yes Information not available 12/21/2018 Sex: Unknown Functional Status Question Answer Note LastModified by [employer] Details LastModified Time What is your exercise level? Occasional Information not available 12/21/2018 Mental Status None recorded. Family History Relationship Description Onset Age of this Age Resolved Age Notes LastModified by Organization Details LastModified Time Unspecified Relation Heart disease hmeier Not available 2018 09:59:20 Unspecified Relation Family history of malignant neoplasm hmeier Not available 2018 09:59:37 Medical History No medical history recorded. Gynecological HistoryNo gynecological history recorded. Obstetrics History GPAL:G 0 P 0 0 0 0 Immunizations Vaccine Type Date Status Note Provider Nam e and Address Organization Details Recorded Time Pneumococcal conjugate PCV 13 8 [facility] 10:22:42 pneumococcal polysaccharide PPV23 2 completed Jennifer Vincentkarinl [facility] 01/05/2019 10:22:53 pneumococcal, unspecified formulation 6 completed Jennifer Vincentkarinl [facility] 01/05/2019 10:23:16 Tdap 0 completed Jennifer Gastonl [facility] 01/05/2019 10:23:30 zoster live 6 completed Jennifer Vincentellie [facility] 01/05/2019 10:23:42 Past Encounters Encounter ID Performer Location Encounter Start Date Encounter Closed Date Diagnosis/Indication Diagnosis SNOMED-CT Code Diagnosis ICD10 Code Diagnosis Note [id number] Lianna Montoya [address] [address] 12/21/2018 09:49:31 12/21/2018 10:57:22 Iron deficiency anemia 23897645 D50.9 Essential hypertension 07386279 I10 Anxiety 86235556 F41.9 Neuropathy due to diabetes mellitus 719342745 E13.40 Gastroesop hageal reflux disease 783306496 K21.9 Depressive disorder 3548 9007 F32.9 History of pulmonary embolus 746092827 Z86.711 Chest pain 64778898 R07. [id number] [address] 01/04/2019 08:53:58 01/04/2019 10:14:08 Chronic obstructive pulmonary disease 14410231 J44.9 Congestive heart failure 38452246 I50.9 Coronary arteriosclerosis 80332281 I25.10 Diabetes mellitus 308936 09 E11.9 Kidney disease 97902904 N08 [id number] Jennifer Vincentellie [place] [address] [place] [address] 01/12/2019 13:26:52 01/12/2019 15:31:02 Type 2 diabetes mellitus 77206052 E11.37X1 Coronary arteriosclerosis 15067282 I25.10 Anxiety 93272660 F41.9 Essential hypertension 20769937 I10 Neuropathy due to diabetes mellitus 993902007 E11.40 Hyperlipidemia 11466267 E78.5 Gastroesop hageal reflux disease 141725427 K21.9 History of pulmonary embolus 035630622 Z86.711 Depressive disorder 3548 9007 F32.9 Screening for malignant neoplasm of breast 521081921 Z12.31 Iron deficiency 24813364 E61.1 Screening for malignant neoplasm of colon 786319210 Z12.[id number] [address] 01/24/2019 16:04:33 01/24/2019 16:34:04 Essential hypertension 67885071 I10 [id number] [address] 01/26/2019 09:06:37 01/26/2019 09:33:21 Hypertensive disorder 31197020 I10 [id number] [address] 01/31/2019 15:27:37 01/31/2019 15:45:19 Health Concerns Section Related Observation LastModified by Organization Detai ls LastModified Time None Recorded Concern Status LastModified by Organization Details LastModified Time None Recorded Advance Directives Directive N: Payers Encounter Date Sequence Insurance Name Policy Number Policy Lambert Covered Member ID Lambert Member ID Guarantor Name 01/04/2019 1 MEDICARE [place]: [employer] Deanna J Laclair [id number] 0 Deanna Laclair 01/12/2019 1 [place] [employer] Deanna J Laclair [id number] Deanna Laclair 01/24/2019 1 [place]: [employer] Deanna J Laclair [id number] Deanna Laclair 01/26/2019 1 [place] [employer] Deanna J Laclair [id number] 0 Deanna Laclair 01/31/2019 1 [place] [employer] Deanna J Laclair [id number] Deanna Laclair Notes Date Note Type Note Provider Name and Address Organization Details Recorded Time 01/04/2019 text/html Patient is here for her labs to be drawn per orders of her provider. Cassy umana [facility] 01/04/2019 10:51:07 01/12/2019 text/html Deanna is here today to establish care. She recently moved here from [place], [place] 1. DMII: This is treated with lantus and novolog sliding scale. She used to be on metformin but this was discontinued d/t kidney function. She states recently her BGs at home have been 200s-500s. She checks 3-4 times daily. She is due for eye exam. Current A1C 11. 2. Hyperlipidemia: on atorvastatin3. GERD: well controlled with omeprazole. Denies any trouble swallowing or cough. 4. HTN: well controlled with current medications. Denies CP, SOB, dizziness, change in vision. 5. CAD: hx NSTEMI, last one was 3 years ago. She has a pacemaker that was placed 2 years ago. Most recently seeing cardiology in [place]. 6. Anxiety/Depression : controlled with citalopram. 7. COPD: never been on inhalers, denies SOB, cough or wheezing. 8. Chronic kidney disease: does not recall ever having an ultrasound of kidneys. Current GFR 51. 7. Due for mammogram, due for colon cancer screening. States she had bone density testing over 10 years ago. Jennifer umana [facility] 01/14/2019 15:05:09 01/24/2019 text/html Pt comes in toda y concerned with her blood pressure. She is reporting that her pressure was 90/48 the other day when she checked it at her cousin's house. She has been feeling light headed and fuzzy. She has been taking all her medications as instructed. She reports that she is drinking 4 8-ounce glasses of water per day. Yesterday blood sugar went down to 48. No palpitations or chest pain. No vision changes. Strength is intact, no weakness or neurological deficits. Lianna umana [facility] 01/25/2019 15:17:26 01/26/2019 text/html Pt has had torsemide on hold. BP looks much better. Pt still feeling fatigued, but not as fuzzy, no light headedness/dizzine ss. No vision changes. She is getting some slight swelling in her right ankle, but otherwise feeling better overall. We discussed balancing her BP and the edema in her legs - we are likely going to schedule her for a continuous BP monitor and possibly make some medication adjustments. Case has been discussed with PCP. [facility] 01/26/2019 09:38:55 01/31/2019 text/html Blood pressure h as improved. Light headedness/dizzine ss has improved. She still feels tired but her fatigue level is improved from previous. She is tolerating dose of torsemide well. IONA Max [facility] 01/31/2019 16:31:20 OBGyn Episode No OBEpisode recorded.
--- OUTSIDE RECORDS SUMMARY | 2024-10-04 13:40 | XMS_ITS | Clinical Summary ---
Author Organization Unknown Care Team Providers Care Plumbing Foreman Name Role Phone LATOYA MARTINEZ, SYLVAIN Unavailable Unavailable REY GRANT, [place] Unavailable Unavailable Payers Payer Name Policy Type Policy Number Effective Date Expira tion Date [facility] [id number] [place] [id number] ON DEMAND MEDICARE - [place] IN BILLING - [place] [id number] Problems Condition Name Condition Details Condition Category [...] 002 00:00: 00 09-05 23:59 :00 No [id number] Per instruc tions TWO (2) TIMES A DAY TO 3 (THREE) TIMES A DAY Per instructio ns TWO (2) TIMES A DAY TO 3 (THREE) TIMES A DAY (route: topical) Med Classific ation: Antisepti cs and Disinfect ants Eliquis 5 mg tablet 03-11 00:00: 00 Yes [id number] 1 tablet TWO (2) TIMES A DAY 1 tablet TWO (2) TIMES A DAY (route: oral) Med Classific ation: Hematolog ical Agents ferrous sulfate 324 mg (65 mg iron) tablet,jessica yed release 2020-08 00:00: 00 03-11 23:59 :00 No [id number] Per instruc tions DAILY Per instructio ns DAILY (route: oral) Med Classific ation: Electroly te Balance-N utritiona l Products gabapentin 400 mg capsule 2020-08 00:00: 00 03-11 23:59 :00 No [id number] Per instruc tions 3 (THREE) TIMES A DAY Per instructio ns 3 (THREE) TIMES A DAY (route: oral) Med Classific ation: Central Nervous System Agents metoprolol succinate ER 25 mg tablet,exte nded release 24 hr 2020-08 00:00: 00 03-11 23:59 :00 No [id number] Per instruc tions DAILY Per instructio ns DAILY (route: oral) Med Classific ation: Cardiovas cular Therapy Agents magnesium oxide 400 mg (241.3 mg magnesium) tablet 2020-08 00:00: 00 03-11 23:59 :00 No [id number] Per instruc tions DAILY Per instructio ns DAILY (route: oral) Med Classific ation: Electroly te Balance-N utritiona l Products atorvastati n 40 mg tablet 2020-08 00:00: 00 03-11 23:59 :00 No [id number] Per instruc tions DAILY Per instructio ns DAILY (route: oral) Med Classific ation: Cardiovas cular Therapy Agents isosorbide dinitrate 30 mg tablet 2020-08 00:00: 00 03-11 23:59 :00 No [id number] Per instruc tions TWO (2) TIMES A DAY Per instructio ns TWO (2) TIMES A DAY (route: oral) Med Classific ation: Cardiovas cular Therapy Agents clopidogrel 75 mg tablet 03-11 00:00: 00 Yes [id number] 1 tablet DAILY 1 tablet DAILY (route: oral) Med Classific ation: Hematolog ical Agents torsemide 20 mg tablet 2020-08 00:00: 00 03-11 23:59 :00 No [id number] Per instruc tions DAILY Per instructio ns DAILY (route: oral) Med Classific ation: Cardiovas cular Therapy Agents pantoprazol e 20 mg tablet,jessica yed release 2020-08 0- 00:00: 00 03-11 23:59 :00 No [id number] Per instruc tions DAILY Per instructio ns DAILY (route: oral) Med Classific ation: Gastroint estinal Therapy Agents Lantus Solostar U-100 Insulin 100 unit/mL (3 mL) subcutaneou s pen 2020-08 0 00:00: 00 03-11 23:59 :00 No [id number] Per instruc tions DAILY Per instructio ns DAILY (route: subcutaneo us) Med Classific ation: Endocrine acetaminoph en 325 mg tablet 03-11 00:00: 00 Yes [id number] 2 tablet 3 TIMES DAILY 2 tablet 3 TIMES DAILY (route: oral) Med Classific ation: Analgesic , Anti-infl ammatory or Antipyret ic atorvastati n 80 mg tablet 03-11 00:00: 00 Yes [id number] 1 tablet BEDTIME 1 tablet BEDTIME (route: oral) Med Classific ation: Cardiovas cular Therapy Agents duloxetine 20 mg capsule,del ayed release 03-11 00:00: 00 Yes [id number] 2 capsule DAILY 2 capsule DAILY (route: oral) Med Classific ation: Central Nervous System Agents ferrous sulfate 325 mg (65 mg iron) tablet 03-11 00:00: 00 Yes [id number] 1 tablet DAILY 1 tablet DAILY (route: oral) Med Classific ation: Electroly te Balance-N utritiona l Products furosemide 20 mg tablet 03-11 00:00: 00 04-19 23:59 :00 No [id number] 1 tablet DAILY 1 tablet DAILY (route: oral) Med Classific ation: Cardiovas cular Therapy Agents gabapentin 100 mg capsule 03-11 00:00: 00 Yes [id number] 2 capsule 3 TIMES DAILY 2 capsule 3 TIMES DAILY (route: oral) Med Classific ation: Central Nervous System Agents Lantus Solostar U-100 Insulin 100 unit/mL (3 mL) subcutaneou s pen 03-11 00:00: 00 Yes [id number] 20 unit BEDTIME 20 unit BEDTIME (route: subcutaneo us) Med Classific ation: Endocrine melatonin 5 mg capsule 03-11 00:00: 00 Yes [id number] 1 capsule DAILY 1 capsule DAILY (route: oral) Med Classific ation: Central Nervous System Agents metoprolol succinate ER 50 mg tablet,exte nded release 24 hr 03-11 00:00: 00 Yes [id number] 1 tablet DAILY 1 tablet DAILY (route: oral) Med Classific ation: Cardiovas cular Therapy Agents mirtazapine 15 mg disintegrat ing tablet 03-11 00:00: 00 Yes [id number] 1 tablet BEDTIME 1 tablet BEDTIME (route: oral) Med Classific ation: Central Nervous System Agents multivitami n tablet 03-11 00:00: 00 Yes [id number] 1 tablet DAILY 1 tablet DAILY (route: oral) Med Classific ation: Electroly te Balance-N utritiona l Products Nitrostat 0.4 mg sublingual tablet 03-11 00:00: 00 Yes [id number] 1 tablet NEEDED 1 tablet NEEDED (route: sublingual ) Med Classific ation: Cardiovas cular Therapy Agents pantoprazol e 40 mg tablet,jessica yed release 03-11 00:00: 00 Yes [id number] 1 tablet DAILY 1 tablet DAILY (route: oral) Med Classific ation: Gastroint estinal Therapy Agents quetiapine 200 mg tablet 03-11 00:00: 00 11-02 23:59 :00 No [id number] 1 tablet BEDTIME 1 tablet BEDTIME (route: oral) Med Classific ation: Central Nervous System Agents Senna Laxative 8.6 mg tablet 03-11 00:00: 00 Yes [id number] 2 tablet DAILY 2 tablet DAILY (route: oral) Med Classific ation: Gastroint estinal Therapy Agents valsartan 40 mg tablet 2023-0 7-21 00:00: 00 Yes [id number] 1 tablet DAILY 1 tablet DAILY (route: oral) Med Classific ation: Cardiovas cular Therapy Agents Lasix 40 mg tablet 8-29 00:00: 00 05-09 23:59 :00 No [id number] 1 tablet DAILY 1 tablet DAILY (route: oral) Med Classific ation: Cardiovas cular Therapy Agents Lasix 20 mg tablet 19 00:00: 00 11-02 23:59 :00 No [id number] 1 tablet DAILY 1 tablet DAILY (route: oral) Med Classific ation: Cardiovas cular Therapy Agents Seroquel 100 mg tablet 05-10 00:00: 00 11-02 23:59 :00 No [id number] 1 tablet BEDTIME 1 tablet BEDTIME (route: oral) Med Classific ation: Central Nervous System Agents Jardiance 10 mg tablet 2022-08 00:00: 00 Yes [id number] 1 tablet DAILY 1 tablet DAILY (route: oral) Med Classific ation: Endocrine Seroquel 100 mg tablet 17 00:00: 00 Yes [id number] 3 tablet BEDTIME 3 tablet BEDTIME (route: oral) Med Classific ation: Central Nervous System Agents torsemide 20 mg tablet 17 00:00: 00 Yes [id number] 1 tablet DAILY 1 tablet DAILY (route: oral) Med Classific ation: Cardiovas cular Therapy Agents isosorbide mononitrate ER 60 mg tablet,exte nded release 24 hr 2023-08 00:00: 00 Yes [id number] 1 tablet DAILY 1 tablet DAILY (route: [...] AWARENESS FOR SAFETY AND WILL NOTIFY CLINICAL FIELD TECHNICAL SPECIALIST AND PHYSICIAN/PROVIDER WITH ANY CHANGE IN CONDITION. [code = SKILLED NURSE WILL MAINTAIN SITUATIONAL AWARENESS FOR SAFETY AND WILL NOTIFY CLINICAL FIELD TECHNICAL SPECIALIST AND PHYSICIAN/PROVIDER WITH ANY CHANGE IN CONDITION.] [...] CARE WILL BE ESTABLISHED THAT MEETS PATIENT'S PENITENTIARY NEEDS AND INCLUDES PATIENT GOAL FOR HOME [...] End Date/Time Encounter Type Admission Type Attending [facility] Care Department Encounter ID Discharge Date Discharge Status Discharge Condition Discharge Reason Percent Goals Met 2023-03-11 00:00:00 2024-10-30 00:00:00 Outpatient RECERTIFIC ATION [place] [facility] [id number] 14.29
[2024-10-04 13:50] LABS: Glucose, Whole Blood 274 mg/dL (60-115)
== END 2024-10-04 14:06 | disposition home or self-care (01) ==
PROVIDERS: PCP Family Medicine; Visit Provider Nurse Practitioner Adult Health
DX: E11.65 Type 2 diabetes mellitus with hyperglycemia (principal)
CPT/HCPCS: 99215; G2211

== ENCOUNTER → 2024-10-04 13:32 | Outpatient (BNVA) | payer OTHER, SELFPAY | PROVIDERS: PCP Family Medicine; Visit Provider Nurse Practitioner Adult Health | DX: E11.65 Type 2 diabetes mellitus with hyperglycemia (principal); Z79.4 Long term (current) use of insulin | CPT/HCPCS: 82947; 83036; 99212 ==

== ENCOUNTER 2024-11-13 10:35 | Outpatient (REF) | payer OTHER, SELFPAY ==
[2024-11-13 14:21] LABS: Appearance Urine Cloudy; Color Urine Yellow; Glucose Urine UA 500 mg/dL (Negative); Leukocyte Esterase Urine Moderate (2+) (Negative); Nitrite Urine Negative (Negative); PH 5.5 (5.0-9.0); UMIC TRIGGER UACC YES; Urine Blood Negative (Negative); Urine Ketones Negative (Negative); Urine Protein Negative (Neg-Trace)
[2024-11-13 14:27] LABS: Bacteria Urine 4+ (None Seen); Hyaline Casts Urine 0-2 /LPF (0-2); RBC Urine 0-2 /HPF (0-2); UACC Culture Trigger YES; WBC Urine 21-50 /HPF (0-5)
== END 2024-11-13 10:36 | disposition home or self-care (01) ==
LOC: HO.LAB 10:35
PROVIDERS: PCP Family Medicine; Visit Provider Nurse Practitioner Family
DX: R30.0 Dysuria (principal)
CPT/HCPCS: 81001; 81003; 87086; 87088; 87186; 96127; 99212

== ENCOUNTER 2024-11-13 10:35 | Outpatient (AMB) | payer OTHER, SELFPAY ==
--- NOTE | 2024-11-13 10:38 | MHC.PC.OV ---
Vital Signs 11/13/24 10:45 Height 5 ft 3 in Weight 220 lb BMI 39.0 BP 133/65 Blood Pressure Location Rt brachial Position Sitting Respiration 16 Pulse 81 Pulse Source Pulse Oximeter Temp 97.7 F Temp Source Oral Pulse Oximetry (%) 97 Oxygen Delivery Method Room Air Intake Visit Reasons: UTI symptoms Intake Note: patient here c/o UTI symptoms Grant Officer Required: No Accompanied by: Other Relationship Is last menstrual period known: No Post menopausal: No Patient : No Allergies Cephalosporins [CEPHALOSPORINS] Allergy (Intermediate, Verified 11/13/24 10:52) RASH oxycodone [From Tylox] Allergy (Intermediate, Verified 11/13/24 10:52) RASH Sulfa (Sulfonamide Antibiotics) [SULFA (SULFONAMIDE ANTIBIOTICS)] Allergy (Intermediate, Verified 11/13/24 10:52) RASH lisinopril Adverse Reaction (Severe, Verified 11/13/24 10:52) contraindication sulfamethoxazole [From Bactrim] Adverse Reaction (Severe, Verified 11/13/24 10:52) Rash trimethoprim [From Bactrim] Adverse Reaction (Severe, Verified 11/13/24 10:52) Rash naproxen [NAPROXEN] Adverse Reaction (Intermediate, Verified 11/13/24 10:52) contraindication Medication List - Last Reconciled 11/13/24 by Kaz Baum CNP acetaminophen 325 mg PO QID PRN apixaban (Eliquis) 5 mg PO BID 30 days atorvastatin 80 mg (2 x 40 mg) PO DAILY 30 days blood sugar diagnostic (FreeStyle Lite Strips) As directed TID blood-glucose meter (FreeStyle Lite Meter kit) As directed blood-glucose sensor (FreeStyle Danica 3 Plus Sensor device) every 15 days for use with reader blood-glucose sensor (FreeStyle Danica 3 Plus Sensor device) As directed carbidopa-levodopa 25-100 mg 1 tab PO BID 30 days [chair lift Use chair lift daily as directed.; (height 5'3'') (weight 218 lbs)] chair, wheel (Wheel chair) Lightweight Wheel Chair. Daily, As directed, 999 days clopidogrel 75 mg PO DAILY 30 days clotrimazole 1% 1 appl topical BID 2 weeks compr.stocking,knee,long,large As directed, 90 days [diabetic shoes with insoles for heel pain and peripheral neuropathy] diaper,brief,adult,disposable (Disposable Brief Jumbo X-Large) As directed duloxetine 40 mg (2 x 20 mg) PO QAM empagliflozin (Jardiance) 25 mg PO DAILY ferrous fumarate 325 mg PO DAILY 30 days FreeStyle Danica 3 [place] (blood-glucose meter,continuous) As directed NS gabapentin 200 mg (2 x 100 mg) PO TID 30 days insulin aspart U-100 (Novolog FlexPen U-100 Insulin aspart) subcutaneously use as directed; 151-200 Give 2 units 201-250 Give 4 units 251-300 Give 6 units 301-350 Give 8 units 351-400 Give 10 units 401-450 Give 12 units > 450 Give 12 units & call MD 30 days insulin glargine (Lantus Solostar U-100 Insulin) 54 units (0.54 mL) subcut DAILY 30 days lancets (FreeStyle Lancets) As directed melatonin 5 mg PO BEDTIME PRN 30 days metoprolol succinate ER 50 mg (2 x 25 mg) PO DAILY 30 days mirtazapine 15 mg PO BEDTIME 30 days miscellaneous medical supply Lift Chair. Daily As directed, 999 days imyiyzop-bcab-MZ-calcium-mins 9 mg iron-400 mcg 1 tab PO DAILY 30 days nitroglycerin (Nitrostat) 0.4 mg sublingual Q5M PRN 1 month pantoprazole 40 mg (2 x 20 mg) PO DAILY 30 days pen needle, diabetic (BD Ultra-Fine Micro Pen Needle) To treat BS 4 times a day, As directed, 90 days quetiapine 300 mg (3 x 100 mg) PO BEDTIME 90 days sennosides-docusate sodium 8.6-50 mg (Senexon-S) 1 tab-cap PO BEDTIME spironolactone 25 mg PO DAILY torsemide 30 mg (1.5 x 20 mg) PO DAILY 90 days valsartan 40 mg PO DAILY 30 days walker (Ultra-Light Rollator [facility] [place]) Rollator?walker?with?seat?and?brakes.??Daily?As directed, 999 days Tobacco use date assessed: 11/13/24 Fall risk assessment: No Falls in past year Last assessed Fall Risk: 11/13/24 Dental Screening Dental Screen Date: 11/13/24 Did you have a dental visit in the last 12 months?: No Did you have a dental problem in the last 6 months where you did not have access to dental care?: No Was dental information given to patient?: Patient declined HPI HPI Comments History of Present Illness Details 74-year-old female, accompanied by his PCP, presents with complaints of burning with urination for the past 3-4 days. He notes associated intermittent chills. Her symptoms have progressive worsened. No hematuria or frequency. No fever or body aches. [facility] Medical History Diabetic neuropathy Anemia Type 2 diabetes mellitus with unspecified complications Atherosclerotic cardiovascular disease Cardiac resynchronization therapy defibrillator (RAIL BONDER-D) in place Surgical History History of colonoscopy H/O endoscopy History of implantable cardioverter-defibrillator (ICD) placement (~02/09/17) History of cardiac catheterization (~08/2015) History of umbilical hernia repair History of appendectomy History of cholecystectomy History of tubal ligation Family History Father Myocardial infarction Mother Uterine cancer Lung cancer Maternal Aunt Uterine cancer Mouth cancer Social History Housing: House Patient Tobacco Use Status: Never used Tobacco e-Cigarette/Vaping Use: Never Used Second Hand Smoke Exposure: No service: No Current occupational status: retired Current occupational exposures/hazards: No Cognitive needs: Yes Hearing needs: No Vision needs: Yes Questionnaire PHQ-9 Over the last 2 weeks, how often have you been bothered by any of the following problems? 1. Little interest or pleasure in doing things: not at all 2. Feeling down, depressed, or hopeless: not at all 3. Trouble falling or staying asleep, or sleeping too much: several days 4. Feeling tired or having little energy: nearly every day 5. Poor appetite or overeating: not at all 6. Feeling bad about yourself - or that you are a failure or have let yourself or your family down: not at all 7. Trouble concentrating on things, such as reading the newspaper or watching television: several days 8. Moving or speaking so slowly that other people could have noticed. Or the opposite - being so fidgety or restless that you have been moving around a lot more than usual: not at all 9. Thoughts that you would be better off or of hurting yourself in some way: not at all Total score: 5 Depression Screening Interpretation: Positive Depression Screening Done: Yes Source: Developed by Drs. Wicho Tucker, Sana Mendoza, Ta Moctezuma and colleagues, with an educational thai from [employer]. Thrive Questionnaire Date Thrive assessed: 03/09/22 I am a: Patient What is your living situation today?: I have a steady place to live Within the past 12 months, did the food you bought not last and you didn't have the money to get more?: Never true Within the past 12 months, did you worry whether your food would run out before you got money to buy more?: Never true Do you have trouble paying for medicines?: No Do you have trouble getting transportation to medical appointments?: No Do you have trouble paying your heating and electricity bill?: No Do you have trouble taking care of your child, family member or friend?: No Do you have trouble with day-to-day activities such as bathing, preparing meals, shopping, managing finances, etc.?: No Are you currently unemployed and looking for a job?: No Are you interested in more education?: No Please select the resources that you would like help with: None Currently or been in a relationship where the following occur: No concerns reported THRIVE Score: 0 AUDIT C Alcohol Use Questionnaire (AUDIT-C) 1. How often do you have a drink containing alcohol?: Never Total Score: 0 DYLON-7 AMB Questionnaire DYLON-7 Date DYLON - 7 assessed: 07/19/23 Feeling nervous, anxious, or on edge: 0 = Not at all Not being able to stop or control worryin = Not at all Worrying too much about different things: 0 = Not at all Trouble relaxin = Not at all Being so restless that it is hard to sit still: 0 = Not at all Becoming easily annoyed or irritable: 0 = Not at all Feeling afraid as if something awful might happen: 0 = Not at all Total DYLON-7 score (0-4 normal; 5-9 mild; 10-14 moderate; 15-21 severe): 0 Source: Developed by Drs. Wicho Tucker, Sana Mendoza, Ta Moctezuma and colleagues, with an educational thai from [employer]. Review of Systems Const Details: Const Denies chills, Denies fatigue, Denies fever(s), Denies headache(s) and Denies weakness ENT Denies dizziness and Denies headache(s) Card Denies chest pain, Denies lightheadedness, Denies dyspnea and Denies other (Palpitations) Resp Denies cough, Denies dyspnea, Denies wheezing and Denies other ( shortness of breath) GI Denies abdominal pain, Denies melena, Denies hematochezia, Denies change in bowel habits, Denies dyspepsia and Denies nausea Reports as per HPI Musc Denies abnormal gait, Denies myalgias, Denies arthralgias, Denies numbness and Denies tingling Skin/Breast Denies rash, Denies unusual bruising and Denies wounds Neuro Denies abnormal gait, Denies dizziness, Denies headache(s), Denies memory loss, Denies numbness, Denies Sensory deficit (Neuro), Denies tingling and Denies weakness Psych Denies anxiety, Denies depression, Denies memory loss Endo Denies cold intolerance, Denies fatigue, Denies heat intolerance, Denies polydipsia and Denies polyuria Aller/Immun Denies wheezing Physical exam (Primary Care) Vital Signs: Last Vital Signs Temp 97.7 F 11/13/24 10:45 Pulse 81 11/13/24 10:45 Resp 16 11/13/24 10:45 BP 133/65 11/13/24 10:45 Pulse Ox 97 11/13/24 10:45 Oxygen Delivery Method Room Air 11/13/24 10:45 BMI result Body Mass Index 39.0 Tobacco/Smoking Status: Tobacco use Status Tobacco use date assessed 11/13/24 11/13/24 10:51 Patient Tobacco Use Status Never used Tobacco 11/13/24 10:42 e-Cigarette/Vaping Use Never Used 11/13/24 10:42 PHQ-9: PHQ-9 Score PHQ-9: Total score 5 11/13/24 10:54 Depression Screening Interpretation: Positive Thrive Assessment: Date of Thrive Assessment Date Thrive assessed 03/09/22 11/13/24 10:42 Currently or been in a relationship where the following occur: No concerns reported Const Other: General: no acute distress and well developed Nutritional Appearance: well nourished Orientation/consciousness: patient oriented x3 HENMT Head: Yes normocephalic and Yes atraumatic Eyes General: appearance normal, both eyes and all related structures Pupils: Equal, round and reactive pupils present EOM: EOMs intact bilaterally Resp Effort & Inspection: normal respiratory effort Auscultation: clear to auscultation bilaterally Cardio Rate: regular rate Rhythm: regular rhythm Heart sounds: S1 normal heart sound present, S2 normal heart sound present, no gallops, no murmurs and no rubs GI Palpation (GI): No Abdominal aortic bruit present, Soft to palpation, nontender, No hepatosplenomegaly present and No Rebound tenderness present Auscultation: normal bowel sounds General: Yes no CVA tenderness Back/Spine/Pelvis Back: no CVA tenderness Cervical Spine: cervical ROM normal and No Cervical spine tenderness Thoracic/Lumbar Spine: thoraco-lumbar ROM normal, No pain with thoraco-lumbar ROM, No thoracic spinal tenderness and No lumbar spinal tenderness Extrem General: Yes normal to inspection, No edema and No calf tenderness Skin General: warm and dry. Normal skin color. Normal skin turgor Neuro General: patient oriented x3, gait normal and no focal neuro deficit Cranial nerves: Yes Equal, round and reactive pupils present Cognition (Neuro): normal cognition Gait exam (Neuro): Normal gait present Sensory Exam: No Sensory deficit (Neuro) Psych Appearance: grossly normal Affect: normal affect Attitude: cooperative Thought process: Normal thought process present Results AMB Urinalysis, Automated UA Leukoctes 15 [place]the[place]/uL Last Edit by Anh Calderon MA on 11/13/24 11:11 UA Nitrite Negative Last Edit by Anh Calderon MA on 11/13/24 11:11 UA Urobilinogen 3.5 mg/dL Last Edit by Anh Calderon MA on 11/13/24 11:11 UA Protein 0 mg/dL Last Edit by Anh Calderon MA on 11/13/24 11:11 UA pH 5.5 Last Edit by Anh Calderon MA on 11/13/24 11:11 UA Blood 0 Juvenal/uL Last Edit by Anh Calderon MA on 11/13/24 11:11 UA Specific [place] 1.020 Last Edit by Anh Calderon MA on 11/13/24 11:11 UA Ketone Negative Last Edit by Anh Calderon MA on 11/13/24 11:11 UA Bilirubin 0 mg/dL Last Edit by Anh Calderon MA on 11/13/24 11:11 UA Glucose 2 mg/dL Last Edit by Anh Calderon MA on 11/13/24 11:11 Results Reviewed Results Reviewed: Laboratory Last Values Urine pH (Auto) 5.5 11/13/24 11:05 Specific [place] (Auto) 1.020 11/13/24 11:05 Urine Protein (Auto) 0 mg/dL 11/13/24 11:05 Glucose (UA)(Auto) 2 mg/dL 11/13/24 11:05 Urine Ketones (Auto) Negative 11/13/24 11:05 Urine Blood (Auto) 0 [place]ven[place]/uL 11/13/24 11:05 Urine Nitrite (Auto) Negative 11/13/24 11:05 Urine Bilirubin (Auto) 0 mg/dL 11/13/24 11:05 Urine Urobilinogen (Auto) 3.5 mg/dL 11/13/24 11:05 Leukocyte Esterase (Auto) 15 [place]/uL 11/13/24 11:05 Coding Level of Care Code Est Pt Level 3 (20341) Diagnoses Dysuria R30.0 Assessment & Plan Assessment & Plan (1) Dysuria: Code(s): R30.0 - Dysuria Category: Medical Plan: Patient reports 3-4 days of dysuria and intermittent chills. No CVA tenderness or abdominal pain. Urine dip is positive for leukocyte and glucose. No nitrites or blood. Will treat empirically with Macrobid and Pyridium. Advised to take as prescribed. Instructed on the risks, benefits, and potential adverse reactions of the medications. Will send urine sample to the lab for urinalysis and culture. Will review results and make changes as needed. Follow-up with worsening or new symptoms. Verbalized understanding and agreed with treatment plan. Orders: Orders AMB Urinalysis Automated Today Z13.9 - Encounter for screening, unspecified UA CC w/rflx Micro + Cult Today R30.0 - Dysuria Medications: New nitrofurantoin monohyd/m-cryst 100 mg (Macrobid) must administer with a meal/food 100 mg PO Q12H 6 caps 0RF 3 days phenazopyridine (Pyridium) 100 mg PO TID PRN 6 tabs 0RF Dysuria 2 days
[2024-11-13 10:45] VITALS: BP 133/65; PULSE 81; RESP 16; TEMP 36.5; O2SAT 97; BMI 39.0
--- OUTSIDE RECORDS SUMMARY | 2024-11-13 12:43 | XMS_ITS | Data Portability ---
Author Organization [facility], RADIOLOGY Address [address] [place] [address] Care Team Providers Care Applied Psychology Chair Name Role Phone SALBADOR TINAJERO Primary Care Provider Assessment No assessment recorded. Plan of Treatment Reminders Order Date Submit Date Provider Last Modified By Organization Details Last Modified Time Details Appointments None recorded. Lab HbA1c (hemoglobi n A1c), blood 2019 020 [facility], [address] [place], [address], 0 08:44:24 TSH, ultra-sens itive, serum 2019 020 [facility] (Lab), [address] [place] [address], [address], 0 17:03:11 BMP, serum or plasma 2019 020 [facility] (Lab), [address] [place] [address], [address], 0 17:03:05 hepatitis C virus Ab, serum 2019 020 [facility] (Lab), [address] [place], [address], 0 07:05:33 HIV 1+2 AB + HIV 1 p24 Ag, qualitativ e immunoassa y, serum 2019 020 [facility] (Lab), [address] [place], [address], 0 10:06:15 hepatitis B virus surface Ab, quantitati ve immunoassa y, serum 2019 020 [facility] (Lab), [address] [place], [address], 0 07:05:36 CBC w/ auto diff 2019 020 [facility] (Lab), [address] [place], [address], 0 10:00:00 iron + total iron-yoko ng capacity (TIBC), serum 2019 020 [facility] (Lab), [address] [place], [address], 0 11:00:15 microalbum in/creatin ine, mass ratio, urine 2019 020 [facility] (Lab), [address] [place], [address], 0 10:11:23 glycohemog lobin, total, blood 2019 020 [facility] (Lab), [address] [place], [address], 0 10:11:18 lipid panel w/ direct LDL, serum 2019 020 [facility] (Lab), [address] [place], [address], 0 10:12:10 CMP, serum or plasma 2019 020 [facility] (Lab), [address] [place], [address], 0 10:12:20 Referral physical therapist referral [address] [facility], [address] [place], [address], 0 08:59:08 diabetic ophthalmol ogy referral 2019 [facility] 18 Not available 0 07:24:[address] referral 2019 [facility] 18 Not available 0 07:24:51 Procedures None recorded. Surgeries None recorded. Imaging None recorded. Medication Orders Tylenol Extra Strength 500 mg tablet 2019 [facility]FACE [facility], [address] [place], [address], 0 15:47:19 Lantus Solostar U-100 Insulin 100 unit/mL (3 mL) subcutaneo us pen 2019 [facility]FACE [facility], [address] [place], [address], 0 15:47:21 Diflucan 150 mg tablet 2019 020 [facility], [address] [place], [address], 0 09:37:14 Lantus Solostar U-100 Insulin 100 unit/mL (3 mL) subcutaneo us pen 2019 020 [facility], [address] [place], [address], 0 15:58:04 Novolog FlexPen U-100 Insulin aspart 100 unit/mL (3 mL) subcutaneo us 2019 020 [facility], [address] [place], [address], 0 15:58:02 Novolog FlexPen U-100 Insulin aspart 100 unit/mL (3 mL) subcutaneo us 2019 020 [facility], [address] [place], [address], 0 16:12:47 nitroglyce rin 0.4 mg sublingual tablet 2019 020 [facility], [address] [place], [address], 0 16:12:50 Patient TargetsNo targets recorded. Patient InstructionsNo instructions recorded. Reason for Referral Multiple Coil Winder Referral for Co ronary arteriosclerosis Referring Physician: Salbador Tinajero, Internal Medicine, Encounter Date: 09/10/2019 Diabetic Ophthalmology Refer ral for Type 2 diabetes mellitus Referring Physician: Salbador Tinajero, Internal Medicine, Encounter Date: 09/10/2019 Physical Therapist Referral for Recurrent falls Referring Physician: Salbador Tinajero, Internal Medicine, Encounter Date: 10/08/2019 Results Created Date Observation Date Name Description Value Unit Range Abnormal Flag Note LastModifiedBy Organization Detail LastModifiedTime 09/11/19 20 09/11/2019 CBC w/ auto diff white blood cells 8.6 x10^3 /uL 4.0 to 10.0 Not Available [facility] (Lab) [address] [place], [address], 09/11/2019 10:00:00 09/11/19 20 09/11/2019 CBC w/ auto diff red blood cells 4.39 x10^6 /uL 3.93 to 5.22 Not Available [facility] (Lab) [address] [place], [address], 09/11/2019 10:00:00 09/11/1909/11/2019 CBC w/ auto diff hemoglobin 13.8 g/dL 11.2 to 15.7 Not Available [facility] (Lab) [address] [place], [address], 09/11/2019 10:00:00 09/11/19 20 09/11/2019 CBC w/ auto diff hematocrit 41.7 % 34 to 45 Not Available [facility] (Lab) [address] [place], [address], 09/11/2019 10:00:00 09/11/19 20 09/11/2019 CBC w/ auto diff MCV 95.0 fL 79 to 94 high Not Available [facility] (Lab) [address] [place], [address], 09/11/2019 10:00:00 09/11/19 20 09/11/2019 CBC w/ auto diff MCH 31.4 pg 26.6 to 32.2 Not Available [facility] (Lab) [address] [place], [address], 09/11/2019 10:00:00 09/11/19 20 09/11/2019 CBC w/ auto diff MCHC 33.1 g/dL 32 to 36.5 Not Available [facility] (Lab) [address] [place], [address], 09/11/2019 10:00:00 09/11/19 20 09/11/2019 CBC w/ auto diff RDW-SD 43.0 fL 35.0 to 46.0 Not Available [facility] (Lab) [address] [place], [address], 09/11/2019 10:00:00 09/11/19 20 09/11/2019 CBC w/ auto diff RDW-CV 12.7 % 10.9 to 14.4 Not Available [facility] (Lab) [address] [place], [address], 09/11/2019 10:00:00 09/11/19 20 09/11/2019 CBC w/ auto diff platelet 157 x10^3 /uL 145 to 370 Not Available [facility] (Lab) [address] [place], [address], 09/11/2019 10:00:00 09/11/19 20 09/11/2019 CBC w/ auto diff MPV 11.2 fL 9.0 to 12.0 Not Available [facility] (Lab) [address] [place], [address], 09/11/2019 10:00:00 09/11/19 20 09/11/2019 CBC w/ auto diff manual differential NO normal Not Available [facility] (Lab) [address] [place], [address], 09/11/2019 10:00:00 09/11/19 20 09/11/2019 CBC w/ auto diff platelet estimate NOT INDICA PETER normal Not Available [facility] (Lab) [address] [place], [address], 09/11/2019 10:00:00 09/11/19 20 09/11/2019 CBC w/ auto diff RBC morphology NOT INDICA PETER normal Not Available [facility] (Lab) [address] [place], [address], 09/11/2019 10:00:00 09/11/19 20 09/11/2019 CBC w/ auto diff neutrophil % 63.7 % Not Available [facility] (Lab) [address] [place], [address], 09/11/2019 10:00:00 09/11/19 20 09/11/2019 CBC w/ auto diff lymphocyte % 24.9 % Not Available [facility] (Lab) [address] [place], [address], 09/11/2019 10:00:00 09/11/19 20 09/11/2019 CBC w/ auto diff monocyte % 6.7 % Not Available [facility] (Lab) [address] [place], [address], 09/11/2019 10:00:00 09/11/19 20 09/11/2019 CBC w/ auto diff eosinophi % 4.1 % Not Available [facility] (Lab) [address] [place], [address], 09/11/2019 10:00:00 09/11/19 20 09/11/2019 CBC w/ auto diff basophil % 0.6 % Not Available [facility] (Lab) [address] [place], [address], 09/11/2019 10:00:00 09/11/19 20 09/11/2019 CBC w/ auto diff neutrophil absolute 5.5 x10^3 /uL 1.5 to 6.3 Not Available [facility] (Lab) [address] [place], [address], 09/11/2019 10:00:00 09/11/19 20 09/11/2019 CBC w/ auto diff lymphocyte absolute 2.2 x10^3 /uL 1 to 3.6 Not Available [facility] (Lab) [address] [place], [address], 09/11/2019 10:00:00 09/11/19 20 09/11/2019 CBC w/ auto diff monocyte absolute 0.6 x10^3 /uL 0.2 to 1 Not Available [facility] (Lab) [address] [place], [address], 09/11/2019 10:00:00 09/11/19 20 09/11/2019 CBC w/ auto diff eosinophil absolute 0.4 x10^3 /uL 0 to 0.5 Not Available [facility] (Lab) [address] [place], [address], 09/11/2019 10:00:00 09/11/19 20 09/11/2019 CBC w/ auto diff basophil absolute 0.1 x10^3 /uL 0 to 0.2 Not Available [facility] (Lab) [address] [place], [address], 09/11/2019 10:00:00 09/11/19 20 09/11/2019 glyco hemog lobin , total , blood glycosolated hemoglobin A1C 11.9 % 4.5 to 6.2 high Not Available [facility] (Lab) [address] [place], [address], 09/11/2019 10:11:18 09/11/19 20 09/11/2019 micro album in/cr eatin ine, mass ratio , urine microalbumin , random urine 0.21 mg/dL 0.13 to 2.00 Not Available [facility] (Lab) [address] [place], [address], 09/11/2019 10:11:22 09/11/19 20 09/11/2019 micro album in/cr eatin ine, mass ratio , urine creatinine urine 40.44 mg/dL Not Available [facility] (Lab) [address] [place], [address], 09/11/2019 10:11:22 09/11/19 20 09/11/2019 micro album in/cr eatin ine, mass ratio , urine micro albumin/crea tinine ratio 5.2 mg/g{ creat } No estab lishe d refer ence range s on a rando m urine MOIZ L is less than 30 mg/gm Creat . MICRO ALBUM INURI A is 30-30 0 mg/gm Creat . CLINI SARWAT ALBUM INURI A is great er than 300 mg/gm Creat . Not Available [facility] (Lab) [address] [place], [address], 09/11/2019 10:11:22 09/11/19 20 09/11/2019 lipid panel w/ direc t LDL, serum cholesterol 177 mg/dL 26 to 192 Not Available [facility] (Lab) [address] [place], [address], 09/11/2019 10:12:10 09/11/19 20 09/11/2019 lipid panel w/ direc t LDL, serum triglyceride s 175 mg/dL 0 to 200 Not Available [facility] (Lab) [address] [place], [address], 09/11/2019 10:12:10 09/11/19 20 09/11/2019 lipid panel w/ direc t LDL, serum LDL calculated vrh 90 mg/dL 0 to 100 Not Available [facility] (Lab) [address] [place], [address], 09/11/2019 10:12:10 09/11/19 20 09/11/2019 lipid panel w/ direc t LDL, serum HDL cholesterol 52 mg/dL 35 to 85 Not Available [facility] (Lab) [address] [place], [address], 09/11/2019 10:12:10 09/11/19 20 09/11/2019 lipid panel w/ direc t LDL, serum chol/HDL ratio vrh 3 CHOL risk ratio for total leticia stero l and HDL leticia stero l Relat katelynn Risk Male Femal e Chol/ HDL Chol/ HDL 1/2 avera ge 0.0-3 .4 0.0-3 .1 avera ge 3.5-5 .0 3.2-4 .4 2X avera ge 5.1-9 .6 4.5-7 .0 4X avera ge 9.7-2 4.0 7.1-1 1.0 Trigl yceri de level s great er than 400 mg/dL will refle x a direc t LDL. Not Available [facility] (Lab) [address] [place], [address], 09/11/2019 10:12:10 09/11/19 20 09/11/2019 CMP, serum or plasm a sodium 137 mmol/ L 136 to 145 Not Available [facility] (Lab) [address] [place], [address], 09/11/2019 10:12:20 09/11/19 20 09/11/2019 CMP, serum or plasm a potassium 4.1 mmol/ L 3.5 to 5.1 Not Available [facility] (Lab) [address] [place], [address], 09/11/2019 10:12:20 09/11/19 20 09/11/2019 CMP, serum or plasm a chloride 102 mmol/ L 98 to 107 Not Available [facility] (Lab) [address] [place], [address], 09/11/2019 10:12:20 09/11/19 20 09/11/2019 CMP, serum or plasm a carbon dioxide 25 mmol/ L 21 to 32 Not Available [facility] (Lab) [address] [place], [address], 09/11/2019 10:12:20 09/11/19 20 09/11/2019 CMP, serum or plasm a BUN 19 mg/dL 7 to 18 high Not Available [facility] (Lab) [address] [place], [address], 09/11/2019 10:12:20 09/11/19 20 09/11/2019 CMP, serum or plasm a creatinine 1.13 mg/dL 0.55 to 1.02 high Not Available [facility] (Lab) [address] [place], [address], 09/11/2019 10:12:20 09/11/19 20 09/11/2019 CMP, serum or plasm a glucose, random 363 mg/dL 74 to 106 high Not Available [facility] (Lab) [address] [place], [address], 09/11/2019 10:12:20 09/11/19 20 09/11/2019 CMP, serum or plasm a calcium 9.0 mg/dL 8.5 to 10.1 Not Available [facility] (Lab) [address] [place], [address], 09/11/2019 10:12:20 09/11/19 20 09/11/2019 CMP, serum or plasm a anion gap 10.0 mmol/ L 5 to 15 Not Available [facility] (Lab) [address] [place], [address], 09/11/2019 10:12:20 09/11/19 20 09/11/2019 CMP, serum or plasm a glomerular filtration rate 48 mL/mi n/1.7 3_m2 Not Available [facility] (Lab) [address] [place], [address], 09/11/2019 10:12:20 09/11/19 20 09/11/2019 CMP, serum or plasm a total bilirubin 0.4 mg/dL 0.2 to 1.0 Not Available [facility] (Lab) [address] [place], [address], 09/11/2019 10:12:20 09/11/19 20 09/11/2019 CMP, serum or plasm a ALT(SGPT) 44 U/L 12 to 78 Not Available [facility] (Lab) [address] [place], [address], 09/11/2019 10:12:20 09/11/19 20 09/11/2019 CMP, serum or plasm a AST (SGOT) 30 U/L 15 to 37 Not Available [facility] (Lab) [address] [place], [address], 09/11/2019 10:12:20 09/11/19 20 09/11/2019 CMP, serum or plasm a alkaline phosphatase 112 U/L 46 to 116 Not Available [facility] (Lab) [address] [place], [address], 09/11/2019 10:12:20 09/11/19 20 09/11/2019 CMP, serum or plasm a albumin 3.1 g/dL 3.4 to 5.0 low Not Available [facility] (Lab) [address] [place], [address], 09/11/2019 10:12:20 09/11/19 20 09/11/2019 CMP, serum or plasm a total protein 6.8 g/dL 6.4 to 8.3 Not Available [facility] (Lab) [address] [place], [address], 09/11/2019 10:12:20 09/11/19 20 09/11/2019 CMP, serum or plasm a A/G ratio 0.8 0.8 to 2.0 GFR Calcu lated from serum IDMS stand jose guadalupe pandya crejacob inine value Chron ic Kidne y Disea se less than 60 mL/mi n/1.7 3 m2 Kidne y Failu re less than 15 mL/mi n/1.7 3 m2 The eGFR has not been valid ated in patie nts young er than 18 years or older than 70 years of age. Not Available [facility] (Lab) [address] [place], [address], 09/11/2019 10:12:20 09/11/19 20 09/11/2019 iron + total iron- yoko ng capac ity (TIBC ), serum iron 57 ug/dL 50 to 170 Not Available [facility] (Lab) [address] [place], [address], 09/11/2019 11:00:14 09/11/19 20 09/11/2019 iron + total iron- yoko ng capac ity (TIBC ), serum total iron binding capacity 248 ug/dL 250 to 450 low Not Available [facility] (Lab) [address] [place], [address], 09/11/2019 11:00:14 09/11/1909/11/2019 iron + total iron- yoko ng capac ity (TIBC ), serum % iron saturation 23 % 15 to 50 Iron Satur ation value s below 15% indic ate iron defic ient eryth ropoi esis. Not Available [facility] (Lab) [address] [place], [address], 09/11/2019 11:00:14 09/11/19 20 09/12/2019 hepat itis C virus Ab, serum HCV antibody <0.1 s/co_ ratio 0.0-0. 9 normal Negat katelynn: < 0.8 Indet ermin ate: 0.8 - 0.9 Posit katelnyn: > 0.9 . The CDC recom mends that a posit katelynn HCV antib jeanette resul t be follo wed up with a HCV Nucle ic Acid Ampli ficat ion test (5507 13). Perfo rmed at: RN - [facility] [address], [place] [address] Lab Direc tor: Lelia Duncan MD, Phone : [phone] Not Available [facility] (Lab) [address] [place] [address], [address], 09/12/2019 07:05:33 09/11/19 20 09/12/2019 hepat itis B virus surfa ce Ab, quant itati ve immun oassa y, serum hepbsab Non Reacti ve normal Non React katelynn: Incon siste nt with immun ity, less than 10 mIU/m L React katelynn: Consi stent with immun ity, great er than 9.9 mIU/m L Perfo rmed at: [facility] [address], [place] [address] Lab Direc tor: Lelia Duncan MD, Phone : [phone] Not Available [facility] (Lab) [address] [place] [address], [address], 09/12/2019 07:05:36 09/11/19 20 09/12/2019 HIV 1+2 AB + HIV 1 p24 Ag, quali tativ e immun oassa y, serum hivreflx Non Reacti ve non reacti ve normal Perfo rmed at: [facility] [address], [place] [address] Lab Direc tor: Lelia Duncan MD, Phone : [phone] Not Available [facility] (Lab) [address] [place] [address], [address], 09/12/2019 10:06:15 10/16/19 20 10/16/2019 BMP, serum or plasm a sodium 140 mmol/ L 136 to 145 Not Available [facility] (Lab) [address] [place] [address], [address], 10/16/2019 17:03:05 10/16/19 20 10/16/2019 BMP, serum or plasm a potassium 4.4 mmol/ L 3.5 to 5.1 Not Available [facility] (Lab) [address] [place], [address], 10/16/2019 17:03:05 10/16/19 20 10/16/2019 BMP, serum or plasm a chloride 102 mmol/ L 98 to 107 Not Available [facility] (Lab) [address] [place], [address], 10/16/2019 17:03:05 10/16/19 20 10/16/2019 BMP, serum or plasm a carbon dioxide 24 mmol/ L 21 to 32 Not Available [facility] (Lab) [address] [place], [address], 10/16/2019 17:03:05 10/16/19 20 10/16/2019 BMP, serum or plasm a BUN 21 mg/dL 7 to 18 high Not Available [facility] (Lab) [address] [place], [address], 10/16/2019 17:03:05 10/16/19 20 10/16/2019 BMP, serum or plasm a creatinine 1.18 mg/dL 0.55 to 1.02 high Not Available [facility] (Lab) [address] [place], [address], 10/16/2019 17:03:05 10/16/19 20 10/16/2019 BMP, serum or plasm a glucose, random 252 mg/dL 74 to 106 high Not Available [facility] (Lab) [address] [place], [address], 10/16/2019 17:03:05 10/16/19 20 10/16/2019 BMP, serum or plasm a calcium 9.5 mg/dL 8.5 to 10.1 Not Available [facility] (Lab) [address] [place], [address], 10/16/2019 17:03:05 10/16/19 20 10/16/2019 BMP, serum or plasm a anion gap 14.0 mmol/ L 5 to 15 Not Available [facility] (Lab) [address] [place], [address], 10/16/2019 17:03:05 10/16/19 20 10/16/2019 BMP, serum or plasm a glomerular filtration rate 45 mL/mi n/1.7 3_m2 GFR Calcu lated from serum IDMS stand ardiz ed creat inine value Chron ic Kidne y Disea se less than 60 mL/mi n/1.7 3 m2 Kidne y Failu re less than 15 mL/mi n/1.7 3 m2 The eGFR has not been valid ated in [facility] young er than 18 years or older than 70 years of age. Not Available [facility] (Lab) [address] [place], [address], 10/16/2019 17:03:05 10/16/19 20 10/16/2019 TSH, ultra -sens itive , serum thyroid stimulating hormone 1.366 uIU/m L 0.360 to 3.740 If the TSH value is betwe en 0.36 and 3.74 uIU/m L there is no appar ent thyro id disor umu. Addit ional testi ng is not indic ated. In rare insta nces, Secon dior Hypot hyroi dism has been repor peter in some patie nts with moiz l TSH value s. TSH-S pecim ens that conta in bioti n at a kimmie ntrat ion of 100 ng/mL demon strat e a <=10% watters e in resul ts. Bioti n kimmie ntrat ions >100 ng/mL may lead to false ly depre ssed resul ts for patie nt sampl es. [facility]ul [facility] from [facility] takin g bioti n suppl ement s or recei ving high- dose bioti n thera py shoul d be inter prete d with cauti on due to possi ble inter feren ce with this test. Not Available [facility] (Lab) [address] [place], [address], 10/16/2019 17:03:11 12/07/19 20 12/07/2019 HbA1c (hemo globi n A1c), blood HbA1c 10.5 Not Available [facility] [address] [place], [address], 12/07/2019 15:33:50 09/23/19 20 09/23/2019 imagi ng/florence campos tic resul t No observ ation record ed. elounder Not Available 2019 09:33:48 Result Notes None recorded. Problems Name Problem SNOMED Code Status Onset Date Resolution Date Notes Provider Name and Address Organization Details Recorded Time Anxiety 25726654 Active 2019 [facility] 0 13:04:43 Depressive disorder 07428475 Active 2019 [facility] 0 13:04:49 Dyslipidemia 199755192 Active 2019 [facility] 0 13:04:55 Gastroesophag eal reflux disease 121482691 Active 2019 [facility] 0 13:05:01 Essential hypertension 31972456 Active 2019 [facility] 0 13:05:08 Left bundle branch block 19921367 Active 2019 [facility] 0 13:05:18 Opioid abuse 6261720 Active 2019 [facility] 0 13:05:26 Acute non-ST segment elevation myocardial infarction 712467682 Active 2019 [facility] 0 13:05:38 Chronic obstructive pulmonary disease 05200201 Active 2019 [facility] 0 13:05:44 Monitoring of pacemaker 96775416 Active 2019 [facility] 0 13:05:52 Congestive heart failure 74680346 Active 2019 Salbador Tinajero MD [address] [place], [address], [facility] 0 16:05:08 Coronary arteriosclero sis 71128218 Active 2019 [facility] 0 13:07:39 Pulmonary embolism 63913025 Active 2019 [facility] 0 13:07:49 Kidney disease 82942568 Active 2019 [facility] 0 13:08:00 Type 2 diabetes mellitus 53857993 Active 2019 [facility] 0 13:11:48 Calcification of breast 547801858 Active 2019 Needs a repeat MAMMO in December 2019 Sablador Tinajero MD [address] [place] [address], [address], [facility] 0 16:34:02 Problem Notes None recorded. Procedures Surgical History Date Name Laterality Status Provider Name and Address Organization Details Recorded Time Hernia Repair completed [facility] 08/23/2019 13:08:59 Tubal Ligation completed [facility] 08/23/2019 13:09:08 Appendectomy completed [facility] 08/23/2019 13:09:15 Gallbladder Surgery completed [facility] 08/23/2019 13:09:22 Pacemaker completed [facility] 08/23/2019 13:09:32 Imaging Results Imaging Date Name Status LastModified by Organiz ation Details LastModified Time 09/23/2019 imaging/diag nostic result completed elounder Information not available 09/24/2019 09:33:48 Procedure Notes None recorded. Medical Equipment None Reported. Allergies Allergen ID Allergen Name Allergen Category Reaction Reaction Severity Criticality Documentation Date Start Date Code Code System Note Provider Name and Address Organization Details Recorded Time 93616 Bactrim medicatio n Not available Not available Not available 08/23/2019 67768 9 RxNorm [facility] 0 11:49:48 13716 Medicinal product containin g cephalosp arturo and acting as antibacte rial agent (product) medicatio n Not available Not available Not available 08/23/2019 18736 9009 SNOMED [facility] 0 11:49:57 71075 naproxen medicatio n Not available Not available Not available 08/23/2019 7258 RxNorm [facility] 0 11:50:04 74660 Substance with sulfonami de structure and antibacte rial mechanism of action (substanc e) medicatio n Not available Not available Not available 08/23/2019 36958 [facility] Medications Name Sig Start Date Stop Date Status Note LastModified by Organization Details LastModified Time losartan 50 mg tablet Take 1 tablet every day by oral route. active Not Available Not Available No t Available atorvastati n 40 mg tablet TAKE ONE TABLET BY MOUTH DAILY 2019 active Not Available Not Available Not Avai lable torsemide 20 mg tablet Take 1 tablet every day by oral route. active Not Available Not Available No t Available quetiapine 300 mg tablet Take 1 tablet every day by oral route. 2019 active Not Available Not Available Not Avai lable isosorbide mononitrate ER 30 mg tablet,exte nded release 24 hr Take 1 tablet every day by oral route. active Not Available Not Available No t Available gabapentin 400 mg capsule Take 1 capsule 3 times a day by oral route. 2019 active Not Available Not Available Not Avai lable Diflucan 150 mg tablet take 1 tablet daily, may repeat dose in 72 hours if needed 2019 active Not Available Not Available Not Avai lable clopidogrel 75 mg tablet Take 1 tablet every day by oral route. active Not Available Not Available No t Available bisoprolol fumarate 5 mg tablet Take 0.5 tablets every day by oral route. 10/08 completed Not Available Not Available Not Available citalopram 20 mg tablet Take 1 tablet every day by oral route. 2019 active Not Available Not Available Not Avai lable nitroglycer in 0.4 mg sublingual tablet 0.4 mg every 5 minutes up to 3 doses 2019 active Not Available Not Available Not Avai lable omeprazole 20 mg capsule,del ayed release Take 1 capsule every 12 hours by oral route for 90 days. 2019 active Not Available Not Available Not Avai lable mirtazapine 15 mg disintegrat ing tablet Place 1 tablet every day by transling ual route. 2019 active Not Available Not Available Not Avai lable ferrous sulfate 325 mg (65 mg iron) tablet,jessica yed release Take 1 tablet every day by oral route. 10/08 completed Not Available Not Available Not Available Tylenol Extra Strength 500 mg tablet Take 2 tablets 3 times a day by oral route as needed. 2019 active Not Available Not Available Not Avai lable Novolog FlexPen U-100 Insulin aspart 100 unit/mL (3 mL) subcutaneou s Inject 20 units 3 times a day by subcutane ous route before meals. 2019 active Not Available Not Available Not Avai lable Lantus Solostar U-100 Insulin 100 unit/mL (3 mL) subcutaneou s pen Inject 30u subcutane ous in the morning and 60u at bedtime 2019 active Not Available Not Available Not Avai lable Accu-Chek Danielle Plus Meter to test three times a day 11/27 completed Not Available Not Available Not Available lancets 30 gauge to test three times a day active Not Available Not Available No t Available lancets 28 gauge to test three times a day active Not Available Not Available No t Available Eliquis 5 mg tablet Take 1 tablet twice a day by oral route. active Not Available Not Available No t Available ReliOn Pen Benson 32 gauge x /32 active Not Available Not Available Not Available True Metrix Glucose Test Strip to test three times a day 2019 active Not Available Not Available Not Avai lable True Metrix Glucose Meter to test three times a day active Not Available Not Available No t Available True Metrix Air Glucose Meter kit Use daily as directed 2019 active Not Available Not Available Not Avallan labrima BD Ultra-Fine Micro Pen Needle 32 gauge x 1/4 USE WITH INSULIN 5 TIMES DAILY FOR 30 DAYS active Not Available Not Available No t Available Adult Aspirin Regimen 81 mg tablet,jessica yed release Take 1 tablet every day by oral route. active Not Available Not Available No t Available Vitals Date Recorded Body height Heart rate Oxygen saturation Oxygen saturation in Arterial blood by Pulse oximetry Body mass index (BMI) Body weight Systolic blood pressure Diastolic blood pressure Provider Name and Address Organization Details Last Updated DateTime 0 160.02 cm 85 /min 97 % 97 % 37 kg/m2 47430.8 1 g 124 mm[Hg] 82 mm[Hg] [facility] 0 15:26:42 Date Recorded Body height Heart rate Oxygen saturation Oxygen saturation in Arterial blood by Pulse oximetry Systolic blood pressure Diastolic blood pressure Provider Name and Address Organization Details Last Updated DateTime 0 160.02 cm 77 /min 97 % 97 % 124 mm[Hg] 74 mm[Hg] [facility] 0 15:04:28 Date Recorded Body height Provider Name an d Address Organization Details Last Updated DateTime 12/07/2019 160.02 cm [facility] 12/07/2019 15:33:29 Date Recorded Body height Provider Name an d Address Organization Details Last Updated DateTime 12/18/2019 160.02 [facility] 09:25:05 Date Recorded Body height Provider Name an d Address Organization Details Last Updated DateTime 12/19/2019 160.02 cm [facility] 12/19/2019 15:32:06 Social History Question Answer Notes LastModified by Organizat ion Details LastModified Time Tobacco Smoking Status Never [facility]oker [facility] 13:09:59 Do You Have An Advance Directive? No Information not available 08/23/2019 What Is Your Level Of Alcohol Consumption? Occasional Rare Occasion A Glass Of Wine Information not available 09/10/2019 What Is Your Level Of Caffeine Consumption? Occasional Soda Information not available 09/10/2019 How Much Tobacco Do You Chew? None Information not available 08/23/2019 Are You Currently Employed? No Information not available 09/10/2019 What Type Of Diet Are You Following? DIABETIC Information not available 08/23/2019 Which Illicit Or Recreational Drugs Have You Used? None Information not available 08/23/2019 Do You Or Have You Ever Used E-cigarettes Or Vape? Never Used Electronic Cigarettes Information not available 08/23/2019 What Is Your Occupation? Retired Information not available 09/10/2019 Hard Of Hearing Or Deaf In One Or Both Ears? No Information not available 09/10/2019 Legally Blind In One Or Both Eyes? No Information not available 09/10/2019 Live Alone Or With Others? With Others Information not available 09/10/2019 How Many Children Do You Have? 3 Information not available 09/10/2019 Seat Belts Used Routinely Yes Information not available 08/23/2019 Smoke Alarm In Home Yes Information not available 08/23/2019 Do You Or Have You Ever Used Smokeless Tobacco? Never Used Smokeless Tobacco Information not available 08/23/2019 How Much Tobacco Do You Smoke? No Information not available 08/23/2019 Sex: Unknown Functional Status Question Answer Note LastModified by Organizat ion Details LastModified Time Are you able to walk? YESWOREST Information not available 09/10/2019 Are you able to care for yourself? Yes Information not available 09/10/2019 What is your exercise level? Occasional Some light walking Information not available 09/10/2019 Mental Status None recorded. Family History Relationship Description Onset Age of this Age Resolved Age Notes LastModified by Organization Details LastModified Time Mother Carcinoma of lung Not available 08/23 15:23:38 Father Heart disease Not available 08/23 15:23:55 Medical History No medical history recorded. Gynecological History Statement/Question Response If Post Menopausal, Age at Menopause 43 Date of Last Pap Smear Most Recent Mammogram Most Recent Bone Density Colonoscopy Post Menopausal Bleeding N Obstetrics History GPAL:G 0 P 0 0 0 0 Immunizations Vaccine Type Date Status Note Provider Nam e and Address Organization Details Recorded Time Tdap 0 completed [facility] 08/23/2019 13:02:39 Pneumococcal conjugate PCV 13 8 completed [facility] 08/23/2019 13:03:06 pneumococcal polysaccharide PPV23 2 completed [facility] 08/23/2019 13:03:27 pneumococcal, unspecified formulation 6 completed [facility] 08/23/2019 13:03:44 zoster, unspecified formulation 6 completed [facility] 08/23/2019 13:03:58 Past Encounters Encounter ID Performer Location Encounter Start Date Encounter Closed Date Diagnosis/Indication Diagnosis SNOMED-CT Code Diagnosis ICD10 Code Diagnosis Note [id number] Salbador Tinajero [facility] [address] [place] [address] [id number] 09/10/2019 14:55:38 09/10/2019 16:15:08 Coronary arteriosclerosis 80531127 I25.10 Has hx of coronary artery disease, reports having 4 stents placed, most recent was 5 years ago. treated at [facility] shantelle GUEVARA. Per note review and patient report, pacemaker was placed 2 years ago. Denies active chest pain at this time. Type 2 gilda betes mellitus 73335049 E11.42 Hemoglobin A1c in December 2018 was 11. Checking her blood sugars frequently , noted blood sugars to be in the 300s-400. -Reports history of neuropathy on the lower extremitie s, denies calluses, wounds -Last dilated eye exam 2 years ago Anxiety 39286835 F41.9 Patient reporting fair control of anxiety but still has episodes of insomnia. Essential hypertension 63176927 I10 BP has been well controlled . Denies chest pain, shortness of breath, dyspnea on exertion, blurred vision. Dyslipidemia 324186582 E 78.5 On atorvastat in 40 mg daily. Gastroesop hageal reflux disease 664340852 K21.9 On omeprazole , reports good symptomati c control on the medication . Depressive disorder 7729 9007 F32.9 Has history of depression . Says symptoms are well controlled . Denies suicidal ideations or passive thoughts of . Does not follow with counseling and does not wish to establish care with counseling . Iron deficiency 64804325 E61.1 Reports a history of iron deficiency anemia, currently on iron supplement ation. Viral screening 18739791 4 Z11.59 [id number] Salbador Tinajero MD [facility] [address] [place] [address] [id number] 10/08/2019 14:47:01 10/08/2019 15:35:33 Type 2 diabetes mellitus 08614817 E11.42 Hemoglobin A1c in December 2018 was 11.9 -Microalbu min/creat ratio: 5.2 -Cholester ol is 177, triglyceri cayden 175, LDL is 90, HDL is 52 -On ARB and statin Checking her blood sugars frequently , noted blood sugars to be in the 300s-400. -Reports history of neuropathy on the lower extremitie s, denies calluses, wounds -Last dilated eye exam 2 years ago Hemoglobin A1c is persistent ly elevated. She says that she has been trying to make changes to her diet. She reports that at discharge, the doses of insulin were decreased despite elevated blood sugars in the hospital. Amina lim, the discharge summary is not available. Recurrent falls 18980367 2 R29.6 Patient reports 2 episodes of mechanical falls when she slipped on the ice. Congestive heart failure 61582738 I50.9 Patient was started on losartan and metoprolol succinate at discharge. Amina lim, I do not have discharge summary available for review. She has an appointmen t scheduled with cardiology in October. Fatigue 81653339 R53.83 She reporting fatigue and malaise. She says that 2 sisters have diagnosis of hypothyroi dism. Coronary arteriosclerosis 68120054 I25.10 On her last visit, she reported hx of coronary artery disease, reports having 4 stents placed, most recent was 5 years ago, [place] [place]. Per note review and patient report, pacemaker was placed 2 years ago. She presented to the emergency room on 09/24 for acute onset of chest pain and was transferre d to [facility] in [place] and had cardiac catheteriz ation. According to the patient, no new stents were placed. She had medication adjusted at discharge and was placed on ARB. She used to be on bisoprolol and was switched to metoprolol succinate. no active chest pain at this time. She was instructed to call 911/go to ED if develops acute chest pain. [id number] Salbador Tinajero MD [facility] [address] [place] [address] [id number] 6 12/07/2019 15:32:37 12/07/2019 16:17:08 Type 2 diabetes mellitus 20023294 E11.69 [id number] Sara Del Castillo NP [facility] [address] [place] [address] [id number] 6 12/18/2019 08:14:27 12/18/2019 10:11:48 Vaginitis 28046363 N76.0 Advised pt to call if symptoms do not resolve with treatment. [id number] Salbador Tinajero MD [facility] [address] [place] [address] [id number] 6 12/19/2019 08:14:26 12/20/2019 08:00:46 Type 2 diabetes mellitus 12364905 E11.42 Hemoglobin A1c 10.1%. Will increase dose of Lantus, continue with NovoLog at the same dose as she is having controlled blood sugars after meals. Instructed patient about red flags for hypoglycem ic episodes and she is aware of how to manage those. Call clinic if any side effects or any other issues. Plan to recheck hemoglobin A1c in 3 months. Hip pain 00543758 M25.55 9 6 weeks of mild to moderate left hip pain. No skin discolorat ion. Instructed about use of Tylenol, cold and warm compresses . Health Concerns Section Related Observation LastModified by Organization Detai ls LastModified Time None Recorded Concern Status LastModified by Organization Details LastModified Time None Recorded Advance Directives Directive N: Payers Encounter Date Sequence Insurance Name Policy Number Policy Lambert Covered Member ID Lambert Member ID Guarantor Name 10/08/2019 1 [employer] (MEDICARE REPLACEMENT/A DVANTAGE - HMO) [id number] Deanna Green Laclair [id number] Deanna J Laclair 12/07/2019 1 [employer] (MEDICARE REPLACEMENT/A DVANTAGE - HMO) [id number] Deanna Norma Laclair [id number] Deanna J Laclair 12/18/2019 1 [employer] (MEDICARE REPLACEMENT/A DVANTAGE - HMO) [id number] Deanna Green Laclair [id number] Deanna Green Laclair 12/19/2019 1 [employer] (MEDICARE REPLACEMENT/A DVANTAGE - HMO) [id number] Deanna Green Laclair [id number] Deanna Chacon Notes Date Note Type Note Provider Name and Address Organization Details Recorded Time 09/10/2019 text/html 68-year-old femginger abarca with past medical history of type 2 diabetes, hypertension, COPD not on oxygen, heart failure, history of coronary artery disease, CA x2 s/p stent placement with pacemaker placed 2 years ago, hx of GERD, anxiety and depression, hyperlipidemia, chronic kidney disease, history of pulmonary embolism on Eliquis who presents to the clinic to establish care. Records from prior PCP reviewed, she had an establish care visit in December 2018. She says that she was lost to follow up with previous PCP because of NO SHOWs to appointments. She reports she was admitted about a month ago for an episode of pulmonary embolism and discharged on Eliquis. She did not see any doctor after she was discharged. She says this is her second episode of pulmonary embolism. Diabetes- currently treating with Lantus and NovoLog sliding scale. Metformin was discontinued secondary to chronic kidney disease. She reports that her blood sugars at home have been elevated, ranging from 200-400. She checks it several times a day and noticed elevated numbers. Hemoglobin A1c from December 2018 was 11%. She endorses polyuria and polydipsia, denies episodes of hypoglycemia, denies dizziness, lightheadedness or diaphoresis. No syncopal episodes. Hyperlipidemia? o n atorvastatin CAD? p jenny has history of NSTEMI documented in notes from prior PCP. She says last heart attack was about 5 years ago. She has a pacemaker implanted 2 years ago. 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 Hypertension? p jenny reports good control of hypertension on current medication. She denies chest pain, shortness of breath, dyspnea on exertion, orthopnea, PND. COPD? n ot on oxygen. She is on inhalers, denies shortness of breath, cough or wheezing. Denies any recent episodes of exacerbation. GERD? s ays and omeprazole provides appropriate control of symptoms. Salbador Tinajero MD [address] [place] [address], [phone], [facility] 09/10/2019 16:34:18 10/08/2019 text/html This is a 69-yea r-old female with past medical history of essential hypertension, coronary artery disease, congestive heart failure, dyslipidemia, GERD, type 2 diabetes mellitus, history of pulmonary embolism who presents to the clinic for a follow-up appointment. This appointment was previously scheduled for a follow-up for diabetes. Patient reports that she was hospitalized on 09/24/19 after presenting to the emergency room complaining of chest pain. She was transferred to [facility] in [place] and had cardiac cath done on 09/24/19. Unfortunately, the discharge summary is not available and information is gathered from A admission visit. 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 She has an appointment scheduled with cardiology on November 08 at [facility]. She also reports that she was started on losartan and Toprol as well as Metformin and ranitidine. During hospitalization, she had elevated blood sugars and says that she was discharged on lower doses of Lantus and NovoLog then the one she was previously. She says that for a few days after discharge, she was still having some chest pain but that has resolved now. She also denies orthopnea, PND, dyspnea on exertion. She has ongoing lower extremity edema. [facility] is visiting twice weekly for diabetes education and weight management. She denies noticing increasing weight. Patient reports that she checks her blood sugar 3-4 times daily. She says that her blood sugars run in the 200s-300s. Even in the morning, her blood sugar is around 250-300. On some occasions, her blood sugar will go down to 150 but that is rare. She denies episodes of hypoglycemia, denies nausea, vomiting, diaphoresis, tremor, syncopal episodes. Patient reports that she suffered 2 mechanical falls last week. She says that on one occasion she was carrying heavy groceries into the house and slipped on ice and fell on the snow. On another occasion, she also slipped on snow. She denies hitting her head, denies joint pain, chest pain or abdominal pain. Salbador Tinajero MD [address] [place], [phone], [facility] 10/08/2019 16:12:10 12/18/2019 text/html This patient was identified as meeting criteria for a televisit rather than an in person visit due to public health concerns around COVID-19. A complete assessment and plan is detailed in the note, all of which were conducted remotely using {{Telephone* Video}} technology. Patient identity was verbally confirmed by the patient/guardian with 2 identifiers (name, date of , and/or address) at the beginning of the visit Patient/guardian verbally consented to care by televisit as appropriate. Patient/guardian was located at home during the visit and confirmed that they understood they were encouraged to be in private location due to personal health information being discussed. Patient/guardian was informed how to access [id number] care in the event of an emergency. Provider was located in an Ambulatory consult room/in a remote secure location during the visit. If this is a new patient visit, all available records and medical history were reviewed by the provider. Visit length was {{7# 10 15 20 25}} minutes and counseling was done on the diagnoses indicated in the visit. Pt believes she has a vaginal yeast infection, has had them in the past. She is reporting burning and itching and white discharge. Has had x 4 days. Hasn't been trying to treat it at home. No new lotions/soaps/deterge nts. No fevers or chills. No difficulty urinating. In the past has used diflucan with good effect, believes last yeast infection was 4 months ago. Sara Del Castillo NP [address] [place] [address], [phone], [facility] 12/18/2019 09:46:05 12/19/2019 text/html This patient was identified as meeting criteria for a televisit rather than an in person visit due to public health concerns around COVID-19. A complete assessment and plan is detailed in the note, all of which were conducted remotely using {{Telephone* Video}} technology. Patient identity was verbally confirmed by the patient with 2 identifiers (name, date of ) at the beginning of the visit Patient verbally consented to care by televisit as appropriate. Patient was located in her residency during the visit and confirmed that she understood she was encouraged to be in private location due to personal health information being discussed. Patient was informed how to access [id number] care in the event of an emergency. Provider was located in a remote secure location during the visit. Visit length was {{10 15* 20 25}} minutes and counseling was done on the diagnoses indicated in the visit. Follow-up for diabetes mellitus. Patient was seen back in August and had a hemoglobin A1c of 11.9%. Hemoglobin A1c checked in November went down to 10.1%. She says that she continues to have elevated blood sugars in the morning ranging from 200-300s. She says that her blood sugars after meals have been around 180-200s. Denies episodes of hypoglycemia, denies tremors, diaphoresis, presyncopal episodes. She also denies episodes of polyuria, polydipsia, polyphagia. She is compliant with medication and tries to eat a low carbohydrate diet. Patient is also complaining of some left hip pain. This has been going on for over a month now. She had 2 falls in the past and has been experiencing hip pain. She was on physical therapy but was discharged from service. He denies any skin changes, edema. Salbador Tinajero MD [address] [place] [address], [phone], [facility] 12/19/2019 18:08:01 OBGyn Episode No OBEpisode recorded.
== END 2024-11-13 11:23 | disposition home or self-care (01) ==
LOC: HO.HMCFM 10:36
PROVIDERS: PCP Family Medicine; Visit Provider Nurse Practitioner Family
DX: R30.0 Dysuria (principal); Z13.9 Encounter for screening, unspecified

== ENCOUNTER 2024-11-26 14:02 | Outpatient (AMB) | payer OTHER, SELFPAY ==
--- NOTE | 2024-11-26 14:20 | A.OFFVIS_ITS ---
Vital Signs 11/26/24 14:28 Height 5 ft 3 in BP 110/60 Blood Pressure Location Rt brachial Position Sitting Pulse 77 Pulse Source Pulse Oximeter Pulse Oximetry (%) 97 Oxygen Delivery Method Room Air Intake Visit Reasons: Follow up Intake Note: MRI cancelled and not done due to patient having leads. updated to CT scan instead. done 04/13/24. 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 Required: No Accompanied by: Self / Same As Patient Allergies Cephalosporins [CEPHALOSPORINS] Allergy (Intermediate, Verified 11/26/24 14:27) RASH oxycodone [From Tylox] Allergy (Intermediate, Verified 11/26/24 14:27) RASH Sulfa (Sulfonamide Antibiotics) [SULFA (SULFONAMIDE ANTIBIOTICS)] Allergy (Intermediate, Verified 11/26/24 14:27) RASH lisinopril Adverse Reaction (Severe, Verified 11/26/24 14:27) contraindication sulfamethoxazole [From Bactrim] Adverse Reaction (Severe, Verified 11/26/24 14:27) Rash trimethoprim [From Bactrim] Adverse Reaction (Severe, Verified 11/26/24 14:27) Rash naproxen [NAPROXEN] Adverse Reaction (Intermediate, Verified 11/26/24 14:27) contraindication Medication List - Last Reconciled 11/26/24 by RAY Patrick acetaminophen 325 mg PO QID PRN apixaban (Eliquis) 5 mg PO BID 30 days atorvastatin 80 mg (2 x 40 mg) PO DAILY 30 days blood sugar diagnostic (FreeStyle Lite Strips) As directed TID blood-glucose meter (FreeStyle Lite Meter kit) As directed blood-glucose sensor (FreeStyle Danica 3 Plus Sensor device) every 15 days for use with reader blood-glucose sensor (FreeStyle Danica 3 Plus Sensor device) As directed carbidopa-levodopa 25-100 mg 1 tab PO BID 30 days [chair lift Use chair lift daily as directed.; (height 5'3'') (weight 218 lbs) ] chair, wheel (Wheel chair) Lightweight Wheel Chair. Daily, As directed, 999 days clopidogrel 75 mg PO DAILY 30 days clotrimazole 1% 1 appl topical BID 2 weeks compr.stocking,knee,long,large As directed, 90 days [diabetic shoes with insoles for heel pain and peripheral neuropathy] diaper,brief,adult,disposable (Disposable Brief Jumbo X-Large) As directed duloxetine 40 mg (2 x 20 mg) PO QAM empagliflozin (Jardiance) 25 mg PO DAILY ferrous fumarate 325 mg PO DAILY 30 days FreeStyle Danica 3 [place] (blood-glucose,nuclear cardiology technologist,cont) As directed NS gabapentin 200 mg (2 x 100 mg) PO TID 30 days insulin aspart U-100 (Novolog FlexPen U-100 Insulin aspart) subcutaneously use as directed; 151-200 Give 2 units 201-250 Give 4 units 251-300 Give 6 units 301- 350 Give 8 units 351-400 Give 10 units 401-450 Give 12 units > 450 Give 12 units & call MD 30 days insulin glargine (Lantus Solostar U-100 Insulin) 54 units (0.54 mL) subcut DAILY 30 days lancets (FreeStyle Lancets) As directed melatonin 5 mg PO BEDTIME PRN 30 days metoprolol succinate ER 50 mg (2 x 25 mg) PO DAILY 30 days mirtazapine 15 mg PO BEDTIME 30 days miscellaneous medical supply Lift Chair. Daily As directed, 999 days gpfjoyds-sppu-DR-calcium-mins 9 mg iron-400 mcg 1 tab PO DAILY 30 days nitrofurantoin monohyd/m-cryst 100 mg (Macrobid) 100 mg PO Q12H 3 days nitroglycerin (Nitrostat) 0.4 mg sublingual Q5M PRN 1 month pantoprazole 40 mg (2 x 20 mg) PO DAILY 30 days pen needle, diabetic (BD Ultra-Fine Micro Pen Needle) To treat BS 4 times a day, As directed, 90 days phenazopyridine (Pyridium) 100 mg PO TID PRN 2 days quetiapine 300 mg (3 x 100 mg) PO BEDTIME 90 days sennosides-docusate sodium 8.6-50 mg (Senexon-S) 1 tab-cap PO BEDTIME spironolactone 25 mg PO DAILY torsemide 30 mg (1.5 x 20 mg) PO DAILY 90 days valsartan 40 mg PO DAILY 30 days walker (Ultra-Light Rollator [facility] [place] Rollator?walker?with?seat?and?brakes. ??Daily?As directed, 999 days HPI Comments Details: 74-yr-old female presents for follow-up of tremor, which started in early 2023. Patient is accompanied by her PODIATRIC AIDE. PMH includes: h/o stroke- states mini- stroke 7 yrs ago w/o residual effects, dual-chamber pacemaker for a-fib tx (implanted 7 yrs ago prior to the ? of stroke), ischemic cardiomyopathy, CHF, HTN, HLD, CKD, diabetes, anemia, arthritis, depression, bipolar, headache. Since the last visit, patient states she tried carbidopa levodopa 25-100 mg 1 tab b.i.d., which she stopped after few months as she felt it was not helpful and caused nausea. She was unable to undergo brain MRI due to her pacemaker implant. 04/23/[address] did not show any acute intracranial abnormality, it was hyperostosis of the calvarium noted. Review of lab work shows 08/16/2024 CBC WNL, BMP WNL, with the exception of BUN elevated at 23, glucose elevated at 224, slightly elevated AST/ALT 50/41, normal alk-phos at 01:10 normal TSH at 1.36, hyperlipidemia with triglycerides 283, total cholesterol 209, LDL 100, with normal HDL at 53. Pt is right handed. ADL status: Needs help due to gait and balance issues. Has a PODIATRIC AIDE. Lives w/ a diathermy equipment repairer. IADL status: She can manage her finances. Cannot cook or do housekeeping d/t cannot stand for long. Fine-motor skills: No issues Micrographia: Writing is not as good Vision changes: impaired vision d/t macular degeneration, dry eye Hypophonia: denies any changes Hyposmia: denies Dysphagia: sometimes w/ hard food- currently edentulous- states needs to find a new dentist to obtain dentures. Drooling: Sometimes at night Orthostatic lightheadedness: Once in a while- if stands suddenly. GI: Constipation: manages w/ prn dulcolax, miralax, and senna. : s/p UTI. urinary incontinence d/t diurectics. Slowness: feels slower, Freezing episodes: denies Tremor: Usually LUE all the time , and sometimes now the RUE Involuntary movements: Denies Dyskinesia: Denies Musculoskeletal: Left hand becomes stiff, postures with fingers straight out Gait changes: Feels more off-balance. Uses a walker. Falls- Had a fall when in-patient for Covid-19 infection in May- was stood up and just fell. Sleep difficulty: Sleeps ok w/ quetiapine. States she has mild SIMRAN- dx'd 20 + yrs ago, but could not tolerate the CPAP mask. Parasomnias: Rarely calls out in her sleep Memory impairment: States it is ok, may take a moment to recall something. Hallucinations: Denies Mood: Mood is statble- may feel down at times. Not currently f/b psychiatry or therapist- states she has not needed anyone. Usual exercise: Does not exercise, never rec'd the home peddler. From initial movement evaluation HPI: History of concussion/head injury? None History of neuroleptic (metoclopramide/antipsychotics) use? Quetiapine 300mg qhs, x's yrs- was previously on 600mg. Uses metoclopramide prn gastroparesis. History of psychiatric hospitalizations? Has had 3-4 psychiatric hospitalizations over the last 30 yrs- last one was about 8 yrs ago. History of occupational chemical exposures? 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 Family history of movement disorders? None Family history of mood disorder or suicide? Denies [facility] Medical History Diabetic neuropathy Anemia Type 2 diabetes mellitus with unspecified complications Atherosclerotic cardiovascular disease Cardiac resynchronization therapy defibrillator (HOG SCRAPER-D) in place Surgical History History of colonoscopy H/O endoscopy History of implantable cardioverter-defibrillator (ICD) placement (~02/09/17) History of cardiac catheterization (~08/2015) History of umbilical hernia repair History of appendectomy History of cholecystectomy History of tubal ligation Family History Father Myocardial infarction Mother Uterine cancer Lung cancer Maternal Aunt Uterine cancer Mouth cancer Social History Housing: House Patient Tobacco Use Status: Never used Tobacco e-Cigarette/Vaping Use: Never Used Second Hand Smoke Exposure: No service: No Current occupational status: retired Current occupational exposures/hazards: No Cognitive needs: Yes Hearing needs: No Vision needs: Yes Physical Exam Vital Signs: Last Vital Signs Pulse 77 11/26/24 14:28 BP 110/60 11/26/24 14:28 Pulse Ox 97 11/26/24 14:28 Oxygen Delivery Method Room Air 11/26/24 14:28 Const General: cooperative and no acute distress HEENT Face and sinus: Yes other (Decreased expression and blink) Resp Effort & Inspection: normal respiratory effort and able to speak in complete sentences Cardio Rate: regular rate Rhythm: regular rhythm Neuro Other: General: A&Ox's 3 Left tilt when sitting Mallampati stage 4 w/ small oral opening and edentulous Expression: Mild decreased expression and blink Voice: decreased expression. Tremor: LUE rest and re-emergent postural tremor. Mild intermittent chin tremor. BUE: Decreased lisa, w/ decreased fluidity on left Tone: BUE R slightly greater than left, slight tone Dyskinesia: None FFM: Bradykinesia, more so on left Foot taps: Bradykinesia, more so on left, Lisa foot taps induce increased LUE rest tremor. Gait: Slow to stand, uses hands to push up, slight left shoulder drop w/ forward stoop, no arm swing, LUE tremor, short steps w/ low poor clearance, multiple steps to turn. Gait better with walker but still stooped w/ left tilt. Psych: Pleasant affect. Extrem Other: BLE distal edema Psych Mental Status: mental status grossly normal Speech and movement: Normal speech and movement present Affect: normal affect Attitude: cooperative Thought process: Normal thought process present Assessment & Plan Assessment & Plan (1) Tremor of left hand: Code(s): R25.1 - Tremor, unspecified Category: Medical (2) Unsteady gait: Code(s): R26.81 - Unsteadiness on feet Category: Medical (3) Hyperostosis: Code(s): M85.80 - Other specified disorders of bone density and structure, unspecified site Category: Medical Plan Reviewed head CT, no findings to account for patient's movements symptoms. We will order follow-up head CT to assess status of hyperostosis. If stable, we could consider bone density scan is not yet completed. Future consideration: DaTscan, as pt has chronic h/o high dose quetiapine use, prn matoclopramide use, and h/o psychiatric hospitalizations. Discontinue CD-LD 25-100mg 1 tab bid order, as this was not effective for the tremor and cause nausea. Trial carbidopa levodopa ER 25-100 mg 1 tab b.i.d., ideally taken 30 minutes prior to meals or protein intake. We will order PT eval and treat for tremor, gait, balance. Continue to use walker. Will follow-up upon review of above and patient to follow-up in clinic in 6 months or sooner prn. Orders: Orders CT head/brain wo IV con 11/26/24 M85.80 - Other specified disorders of bone density and structure, unspecified site PT Evaluation and Treatment 11/26/24 R25.1 - Tremor, unspecified, R26.81 - Unsteadiness on feet Medications: New carbidopa-levodopa 25-100 mg ER 1/2 hour before breakfast and lunch (may take with cracker) 1 tab PO BID 60 tabs 6RF 30 days Coding Level of Care Code Est Pt Level 4 (97863) Diagnoses Tremor of left hand R25.1 Unsteady gait R26.81 Hyperostosis M85.80
[2024-11-26 14:28] VITALS: BP 110/60; PULSE 77; O2SAT 97
--- OUTSIDE RECORDS SUMMARY | 2024-11-26 16:49 | XMS_ITS | Data Portability ---
Author Organization [facility], RADIOLOGY Address [address] [place] [address] Care Team Providers Care Gold Charmer Name Role Phone SALBADOR TINAJERO Primary Care Provider Assessment No assessment recorded. Plan of Treatment Reminders Order Date Submit Date Provider Last Modified By Organization Details Last Modified Time Details Appointments None recorded. Lab HbA1c (hemoglobi n A1c), blood 2019 020 [facility], [address] [place], [address], 0 08:44:24 TSH, ultra-sens itive, serum 2019 020 [facility] (Lab), [address] [place] [address], [address], 0 17:03:11 BMP, serum or plasma 2019 020 [facility] (Lab), [address] [place] [address], [address], 0 17:03:05 hepatitis C virus Ab, serum 2019 020 [facility] (Lab), [address] [place], [address], 0 07:05:33 HIV 1+2 AB + HIV 1 p24 Ag, qualitativ e immunoassa y, serum 2019 020 [facility] (Lab), [address] [place], [address], 0 10:06:15 hepatitis B virus surface Ab, quantitati ve immunoassa y, serum 2019 020 [facility] (Lab), [address] [place], [address], 0 07:05:36 CBC w/ auto diff 2019 020 [facility] (Lab), [address] [place], [address], 0 10:00:00 iron + total iron-yoko ng capacity (TIBC), serum 2019 020 [facility] (Lab), [address] [place], [address], 0 11:00:15 microalbum in/creatin ine, mass ratio, urine 2019 020 [facility] (Lab), [address] [place], [address], 0 10:11:23 glycohemog lobin, total, blood 2019 020 [facility] (Lab), [address] [place], [address], 0 10:11:18 lipid panel w/ direct LDL, serum 2019 020 [facility] (Lab), [address] [place], [address], 0 10:12:10 CMP, serum or plasma 2019 020 [facility] (Lab), [address] [place], [address], 0 10:12:20 Referral physical therapist referral [address] [facility], [address] [place], [address], 0 08:59:08 diabetic ophthalmol ogy referral 2019 [facility] 18 Not available 0 07:24:[address] referral 2019 [facility] 18 Not available 0 07:24:51 Procedures None recorded. Surgeries None recorded. Imaging None recorded. Medication Orders Tylenol Extra Strength 500 mg tablet 2019 [facility], [address] [place], [address], 0 15:47:19 Lantus Solostar U-100 Insulin 100 unit/mL (3 mL) subcutaneo us pen 2019 [facility], [address] [place], [address], 0 15:47:21 Diflucan 150 mg tablet 2019 020 [facility], [address] [place], [address], 0 09:37:14 Lantus Solostar U-100 Insulin 100 unit/mL (3 mL) subcutaneo us pen 2019 020 [facility], [address] [place], [address], 0 15:58:04 Novolog FlexPen U-100 Insulin aspart 100 unit/mL (3 mL) subcutaneo us 2019 020 [facility], [address] [place], [address], 0 15:58:02 Novolog FlexPen U-100 Insulin aspart 100 unit/mL (3 mL) subcutaneo us 2019 020 [facility], [address] [place], [address], 0 16:12:47 nitroglyce rin 0.4 mg sublingual tablet 2019 020 [facility], [address] [place], [address], 0 16:12:50 Patient TargetsNo targets recorded. Patient InstructionsNo instructions recorded. Reason for Referral [employer] Referral for Co ronary arteriosclerosis Referring Physician: [...] x10^3 /uL 4.0 to 10.0 Not Available [facility] (Lab) [address] [place], [address], 09/11/2019 10:00:00 09/11/19 20 09/11/2019 CBC w/ auto diff red blood cells 4.39 x10^6 /uL 3.93 to 5.22 Not Available [facility] (Lab) [address] [place], [address], 09/11/2019 10:00:00 09/11/1909/11/2019 CBC w/ auto diff hemoglobin 13.8 g/dL 11.2 to 15.7 Not Available [facility] (Lab) [address] [place], [address], 09/11/2019 10:00:00 09/11/19 20 09/11/2019 CBC w/ auto diff hematocrit 41.7 % 34 to 45 Not Available [facility] (Lab) [address] [place], [address], 09/11/2019 10:00:00 09/11/19 20 09/11/2019 CBC w/ auto diff MCV 95.0 fL 79 to 94 high Not Available [facility] (Lab) [address] [place], [address], 09/11/2019 10:00:00 09/11/19 20 09/11/2019 CBC w/ auto diff MCH 31.4 pg 26.6 to 32.2 Not Available [facility] (Lab) [address] [place], [address], 09/11/2019 10:00:00 09/11/19 20 09/11/2019 CBC w/ auto diff MCHC 33.1 g/dL 32 to 36.5 Not Available [facility] (Lab) [address] [place], [address], 09/11/2019 10:00:00 09/11/19 20 09/11/2019 CBC w/ auto diff RDW-SD 43.0 fL 35.0 to 46.0 Not Available [facility] (Lab) [address] [place], [address], 09/11/2019 10:00:00 09/11/19 20 09/11/2019 CBC w/ auto diff RDW-CV 12.7 % 10.9 to 14.4 Not Available [facility] (Lab) [address] [place], [address], 09/11/2019 10:00:00 09/11/19 20 09/11/2019 CBC w/ auto diff platelet 157 x10^3 /uL 145 to 370 Not Available [facility] (Lab) [address] [place], [address], 09/11/2019 10:00:00 09/11/19 20 09/11/2019 CBC w/ auto diff MPV 11.2 fL 9.0 to 12.0 Not Available [facility] (Lab) [address] [place], [address], 09/11/2019 10:00:00 09/11/19 20 09/11/2019 CBC w/ auto diff manual differential NO normal Not Available [facility] (Lab) [address] [place], [address], 09/11/2019 10:00:00 09/11/19 20 09/11/2019 CBC w/ auto diff platelet estimate NOT INDICA PETER normal Not Available [facility] (Lab) [address] [place], [address], 09/11/2019 10:00:00 09/11/19 20 09/11/2019 CBC w/ auto diff RBC morphology NOT INDICA PETER normal Not Available [facility] (Lab) [address] [place], [address], 09/11/2019 10:00:00 09/11/19 20 09/11/2019 CBC w/ auto diff neutrophil % 63.7 % Not Available [facility] (Lab) [address] [place], [address], 09/11/2019 10:00:00 09/11/19 20 09/11/2019 CBC w/ auto diff lymphocyte % 24.9 % Not Available [facility] (Lab) [address] [place], [address], 09/11/2019 10:00:00 09/11/19 20 09/11/2019 CBC w/ auto diff monocyte % 6.7 % Not Available [facility] (Lab) [address] [place], [address], 09/11/2019 10:00:00 09/11/19 20 09/11/2019 CBC w/ auto diff eosinophi % 4.1 % Not Available [facility] (Lab) [address] [place], [address], 09/11/2019 10:00:00 09/11/19 20 09/11/2019 CBC w/ auto diff basophil % 0.6 % Not Available [facility] (Lab) [address] [place], [address], 09/11/2019 10:00:00 09/11/19 20 09/11/2019 CBC w/ auto diff neutrophil absolute 5.5 x10^3 /uL 1.5 to 6.3 Not Available [facility] (Lab) [address] [place], [address], 09/11/2019 10:00:00 09/11/19 20 09/11/2019 CBC w/ auto diff lymphocyte absolute 2.2 x10^3 /uL 1 to 3.6 Not Available [facility] (Lab) [address] [place], [address], 09/11/2019 10:00:00 09/11/19 20 09/11/2019 CBC w/ auto diff monocyte absolute 0.6 x10^3 /uL 0.2 to 1 Not Available [facility] (Lab) [address] [place], [address], 09/11/2019 10:00:00 09/11/19 20 09/11/2019 CBC w/ auto diff eosinophil absolute 0.4 x10^3 /uL 0 to 0.5 Not Available [facility] (Lab) [address] [place], [address], 09/11/2019 10:00:00 09/11/19 20 09/11/2019 CBC w/ auto diff basophil absolute 0.1 x10^3 /uL 0 to 0.2 Not Available [facility] (Lab) [address] [place], [address], 09/11/2019 10:00:00 09/11/19 20 09/11/2019 glyco hemog lobin , total , blood glycosolated hemoglobin A1C 11.9 % 4.5 to 6.2 high Not Available [facility] (Lab) [address] [place], [address], 09/11/2019 10:11:18 09/11/19 20 09/11/2019 micro album in/cr eatin ine, mass ratio , urine microalbumin , random urine 0.21 mg/dL 0.13 to 2.00 Not Available [facility] (Lab) [address] [place], [address], 09/11/2019 10:11:22 09/11/19 20 09/11/2019 micro album in/cr eatin ine, mass ratio , urine creatinine urine 40.44 mg/dL Not Available [facility] (Lab) [address] [place], [address], 09/11/2019 10:11:22 09/11/19 20 09/11/2019 micro album [...] than 300 mg/gm Creat . Not Available [facility] (Lab) [address] [place], [address], 09/11/2019 10:11:22 09/11/19 20 09/11/2019 lipid panel w/ direc t LDL, serum cholesterol 177 mg/dL 26 to 192 Not Available [facility] (Lab) [address] [place], [address], 09/11/2019 10:12:10 09/11/19 20 09/11/2019 lipid panel w/ direc t LDL, serum triglyceride s 175 mg/dL 0 to 200 Not Available [facility] (Lab) [address] [place], [address], 09/11/2019 10:12:10 09/11/19 20 09/11/2019 lipid panel w/ direc t LDL, serum LDL calculated vrh 90 mg/dL 0 to 100 Not Available [facility] (Lab) [address] [place], [address], 09/11/2019 10:12:10 09/11/19 20 09/11/2019 lipid panel w/ direc t LDL, serum HDL cholesterol 52 mg/dL 35 to 85 Not Available [facility] (Lab) [address] [place], [address], 09/11/2019 10:12:10 09/11/19 20 09/11/2019 lipid panel [...] x a direc t LDL. Not Available [facility] (Lab) [address] [place], [address], 09/11/2019 10:12:10 09/11/19 20 09/11/2019 CMP, serum or plasm a sodium 137 mmol/ L 136 to 145 Not Available [facility] (Lab) [address] [place], [address], 09/11/2019 10:12:20 09/11/19 20 09/11/2019 CMP, serum or plasm a potassium 4.1 mmol/ L 3.5 to 5.1 Not Available [facility] (Lab) [address] [place], [address], 09/11/2019 10:12:20 09/11/19 20 09/11/2019 CMP, serum or plasm a chloride 102 mmol/ L 98 to 107 Not Available [facility] (Lab) [address] [place], [address], 09/11/2019 10:12:20 09/11/19 20 09/11/2019 CMP, serum or plasm a carbon dioxide 25 mmol/ L 21 to 32 Not Available [facility] (Lab) [address] [place], [address], 09/11/2019 10:12:20 09/11/19 20 09/11/2019 CMP, serum or plasm a BUN 19 mg/dL 7 to 18 high Not Available [facility] (Lab) [address] [place], [address], 09/11/2019 10:12:20 09/11/19 20 09/11/2019 CMP, serum or plasm a creatinine 1.13 mg/dL 0.55 to 1.02 high Not Available [facility] (Lab) [address] [place], [address], 09/11/2019 10:12:20 09/11/19 20 09/11/2019 CMP, serum or plasm a glucose, random 363 mg/dL 74 to 106 high Not Available [facility] (Lab) [address] [place], [address], 09/11/2019 10:12:20 09/11/19 20 09/11/2019 CMP, serum or plasm a calcium 9.0 mg/dL 8.5 to 10.1 Not Available [facility] (Lab) [address] [place], [address], 09/11/2019 10:12:20 09/11/19 20 09/11/2019 CMP, serum or plasm a anion gap 10.0 mmol/ L 5 to 15 Not Available [facility] (Lab) [address] [place], [address], 09/11/2019 10:12:20 09/11/19 20 09/11/2019 CMP, serum or plasm a glomerular filtration rate 48 mL/mi n/1.7 3_m2 Not Available [facility] (Lab) [address] [place], [address], 09/11/2019 10:12:20 09/11/19 20 09/11/2019 CMP, serum or plasm a total bilirubin 0.4 mg/dL 0.2 to 1.0 Not Available [facility] (Lab) [address] [place], [address], 09/11/2019 10:12:20 09/11/19 20 09/11/2019 CMP, serum or plasm a ALT(SGPT) 44 U/L 12 to 78 Not Available [facility] (Lab) [address] [place], [address], 09/11/2019 10:12:20 09/11/19 20 09/11/2019 CMP, serum or plasm a AST (SGOT) 30 U/L 15 to 37 Not Available [facility] (Lab) [address] [place], [address], 09/11/2019 10:12:20 09/11/19 20 09/11/2019 CMP, serum or plasm a alkaline phosphatase 112 U/L 46 to 116 Not Available [facility] (Lab) [address] [place], [address], 09/11/2019 10:12:20 09/11/19 20 09/11/2019 CMP, serum or plasm a albumin 3.1 g/dL 3.4 to 5.0 low Not Available [facility] (Lab) [address] [place], [address], 09/11/2019 10:12:20 09/11/19 20 09/11/2019 CMP, serum or plasm a total protein 6.8 g/dL 6.4 to 8.3 Not Available [facility] (Lab) [address] [place], [address], 09/11/2019 10:12:20 09/11/19 20 09/11/2019 CMP, serum [...] than 70 years of age. Not Available [facility] (Lab) [address] [place], [address], 09/11/2019 10:12:20 09/11/19 20 09/11/2019 iron + total iron- yoko ng capac ity (TIBC ), serum iron 57 ug/dL 50 to 170 Not Available [facility] (Lab) [address] [place], [address], 09/11/2019 11:00:14 09/11/19 20 09/11/2019 iron + total iron- yoko ng capac ity (TIBC ), serum total iron binding capacity 248 ug/dL 250 to 450 low Not Available [facility] (Lab) [address] [place], [address], 09/11/2019 11:00:14 09/11/1909/11/2019 iron + total iron- yoko ng capac ity (TIBC ), serum % iron saturation 23 % 15 to 50 Iron Satur ation value s below 15% indic ate iron defic ient eryth ropoi esis. Not Available [facility] (Lab) [address] [place], [address], 09/11/2019 11:00:14 09/11/19 20 09/12/2019 hepat itis C virus Ab, serum HCV antibody <0.1 s/co_ ratio 0.0-0. 9 normal Negat katelynn: < 0.8 Indet ermin ate: 0.8 - 0.9 Posit katelynn: > 0.9 . The CDC recom mends that a posit katelynn HCV antib jeanette resul t be follo wed up with a HCV Nucle ic Acid Ampli ficat ion test (5507 13). Perfo rmed at: RN - [facility] [address], [place] [address] Lab Direc tor: Lelia Duncan MD, Phone : [phone] Not Available [facility] (Lab) [address] [place] [address], [address], 09/12/2019 07:05:33 09/11/19 20 09/12/2019 hepat itis [...] an [address], [place] [address] Lab Direc tor: Lelia Duncan MD, Phone : [phone] Not Available [facility] (Lab) [address] [place] [address], [address], 09/12/2019 07:05:36 09/11/19 20 09/12/2019 HIV 1+2 AB + HIV 1 p24 Ag, quali tativ e immun oassa y, serum hivreflx Non Reacti ve non reacti ve normal Perfo rmed at: JUANITA Loyd rp [facility] [address], [place] [address] Lab Direc tor: Lelia Duncan MD, Phone : [phone] Not Available [facility] (Lab) [address] [place] [address], [address], 09/12/2019 10:06:15 10/16/19 20 10/16/2019 BMP, serum or plasm a sodium 140 mmol/ L 136 to 145 Not Available [facility] (Lab) [address] [place] [address], [address], 10/16/2019 17:03:05 10/16/19 20 10/16/2019 BMP, serum or plasm a potassium 4.4 mmol/ L 3.5 to 5.1 Not Available [facility] (Lab) [address] [place], [address], 10/16/2019 17:03:05 10/16/19 20 10/16/2019 BMP, serum or plasm a chloride 102 mmol/ L 98 to 107 Not Available [facility] (Lab) [address] [place], [address], 10/16/2019 17:03:05 10/16/19 20 10/16/2019 BMP, serum or plasm a carbon dioxide 24 mmol/ L 21 to 32 Not Available [facility] (Lab) [address] [place], [address], 10/16/2019 17:03:05 10/16/19 20 10/16/2019 BMP, serum or plasm a BUN 21 mg/dL 7 to 18 high Not Available [facility] (Lab) [address] [place], [address], 10/16/2019 17:03:05 10/16/19 20 10/16/2019 BMP, serum or plasm a creatinine 1.18 mg/dL 0.55 to 1.02 high Not Available [facility] (Lab) [address] [place], [address], 10/16/2019 17:03:05 10/16/19 20 10/16/2019 BMP, serum or plasm a glucose, random 252 mg/dL 74 to 106 high Not Available [facility] (Lab) [address] [place], [address], 10/16/2019 17:03:05 10/16/19 20 10/16/2019 BMP, serum or plasm a calcium 9.5 mg/dL 8.5 to 10.1 Not Available [facility] (Lab) [address] [place], [address], 10/16/2019 17:03:05 10/16/19 20 10/16/2019 BMP, serum or plasm a anion gap 14.0 mmol/ L 5 to 15 Not Available [facility] (Lab) [address] [place], [address], 10/16/2019 17:03:05 10/16/19 20 10/16/2019 BMP, serum or plasm a glomerular filtration rate 45 mL/mi n/1.7 3_m2 GFR Calcu lated from serum IDMS stand ardiz ed creat inine value Chron ic Kidne y Disea se less than 60 mL/mi n/1.7 3 m2 Kidne y Failu re less than 15 mL/mi n/1.7 3 m2 The eGFR has not been valid ated in [facility] young er than 18 years or older than 70 years of age. Not Available [facility] (Lab) [address] [place], [address], 10/16/2019 17:03:05 10/16/19 20 10/16/2019 TSH, ultra [...] patie nt sampl es. [facility] tak[facility] g bioti n suppl ement s or recei ving high- dose bioti n thera py shoul d be inter prete d with cauti on due to possi ble inter feren ce with this test. Not Available [facility] (Lab) [address] [place], [address], 10/16/2019 17:03:11 12/07/19 20 12/07/2019 HbA1c (hemo globi n A1c), blood HbA1c 10.5 Not Available [facility] [address] [place], [address], 12/07/2019 15:33:50 09/23/19 20 09/23/2019 imagi ng/florence campos tic resul t No observ ation record ed. elounder Not Available 2019 09:33:48 Result Notes None recorded. Problems Name Problem SNOMED Code Status Onset Date Resolution Date Notes Provider Name and Address Organization Details Recorded Time Anxiety 22816644 Active 2019 [facility] 0 13:04:43 Depressive disorder 81585699 Active 2019 [facility] 0 13:04:49 Dyslipidemia 502322360 Active 2019 [facility] 0 13:04:55 Gastroesophag eal reflux disease 214450063 Active 2019 [facility] 0 13:05:01 Essential hypertension 21869082 Active 2019 [facility] 0 13:05:08 Left bundle branch block 62934780 Active 2019 [facility] 0 13:05:18 Opioid abuse 4471261 Active 2019 [facility] 0 13:05:26 Acute non-ST segment elevation myocardial infarction 574729352 Active 2019 [facility] 0 13:05:38 Chronic obstructive pulmonary disease 35285265 Active 2019 [facility] 0 13:05:44 Monitoring of pacemaker 18974486 Active 2019 [facility] 0 13:05:52 Congestive heart failure 68514751 Active 2019 Salbador Tinajero MD [address] [place], [address], [facility] 0 16:05:08 Coronary arteriosclero sis 46048929 Active 2019 [facility] 0 13:07:39 Pulmonary embolism 90345287 Active 2019 [facility] 0 13:07:49 Kidney disease 75150394 Active 2019 [facility] 0 13:08:00 Type 2 diabetes mellitus 82006574 Active 2019 [facility] 0 13:11:48 Calcification of breast 881324663 Active 2019 Needs a repeat MAMMO in December 2019 Salbador Tinajero MD [address] [place] [address], [phone], [facility] 0 16:34:02 Problem Notes None recorded. Procedures Surgical History Date Name Laterality Status Provider Name and Address Organization Details Recorded Time Hernia Repair completed [facility] 08/23/2019 13:08:59 Tubal Ligation completed [facility] 08/23/2019 13:09:08 Appendectomy completed [facility] 08/23/2019 13:09:15 Gallbladder Surgery completed [facility] 08/23/2019 13:09:22 Pacemaker completed [facility] 08/23/2019 13:09:32 Imaging Results Imaging Date Name Status LastModified by Organiz ation Details LastModified Time 09/23/2019 imaging/diag nostic result completed elounder Information not available 09/24/2019 09:33:48 Procedure Notes None recorded. Medical Equipment None Reported. Allergies Allergen ID Allergen Name Allergen Category Reaction Reaction Severity Criticality Documentation Date Start Date Code Code System Note Provider Name and Address Organization Details Recorded Time 64897 Bactrim medicatio n Not available Not available Not available 08/23/2019 94088 9 RxNorm [facility] 0 11:49:48 35690 Medicinal product containin g cephalosp arturo and acting as antibacte rial agent (product) medicatio n Not available Not available Not available 08/23/2019 46245 9009 SNOMED [facility] 0 11:49:57 30304 naproxen medicatio n Not available Not available Not available 08/23/2019 7258 RxNorm [facility] 0 11:50:04 73683 Substance with sulfonami de structure and antibacte rial mechanism of action (substanc e) medicatio n Not available Not available Not available 08/23/2019 15862 [facility] Medications Name Sig Start Date [...] Not Available No t Available ReliOn Pen [place] 32 gauge x /32 active Not Available [...] /min 97 % 97 % 37 kg/m2 78848.8 1 g 124 mm[Hg] 82 mm[Hg] [facility] 0 15:26:42 Date Recorded Body height Heart rate Oxygen saturation Oxygen saturation in Arterial blood by Pulse oximetry Systolic blood pressure Diastolic blood pressure Provider Name and Address Organization Details Last Updated DateTime 0 160.02 cm 77 /min 97 % 97 % 124 mm[Hg] 74 mm[Hg] [facility] 0 15:04:28 Date Recorded Body height Provider Name an d Address Organization Details Last Updated DateTime 12/07/2019 160.02 cm [facility] 12/07/2019 15:33:29 Date Recorded Body height Provider Name an d Address Organization Details Last Updated DateTime 12/18/2019 160.02 [facility] 09:25:05 Date Recorded Body height Provider Name an d Address Organization Details Last Updated DateTime 12/19/2019 160.02 cm [facility] 12/19/2019 15:32:06 Social History Question Answer Notes LastModified by Organizat ion Details LastModified Time Tobacco Smoking Status Never [facility]oker [facility] 08/23/2019 13:09:59 Do You Have An [...] Organization Details Recorded Time Tdap 0 completed [facility] 08/23/2019 13:02:39 Pneumococcal conjugate PCV 13 8 completed [facility] 08/23/2019 13:03:06 pneumococcal polysaccharide PPV23 2 completed [facility] 08/23/2019 13:03:27 pneumococcal, unspecified formulation 6 completed [facility] 08/23/2019 13:03:44 zoster, unspecified formulation 6 completed [facility] 08/23/2019 13:03:58 Past Encounters Encounter ID Performer Location Encounter Start Date Encounter Closed Date Diagnosis/Indication Diagnosis SNOMED-CT Code Diagnosis ICD10 Code Diagnosis Note [id number] Salbador Tinajero MD [facility] [address] [place] [id number] 09/10/2019 14:55:38 09/10/2019 16:15:08 Coronary arteriosclerosis 99841311 I25.10 Has hx of coronary artery disease, reports having 4 stents placed, most recent was 5 years ago. treated at [facility] shantelle GUEVARA. Per note review and patient report, pacemaker was placed 2 years ago. Denies active chest pain at this time. Type 2 gilda betes mellitus 70746697 E11.42 Hemoglobin A1c in December 2018 was 11. Checking her blood sugars frequently , noted blood sugars to be in the 300s-400. -Reports history of neuropathy on the lower extremitie s, denies calluses, wounds -Last dilated eye exam 2 years ago Anxiety 99060798 F41.9 Patient reporting fair control of anxiety but still has episodes of insomnia. Essential hypertension 36954454 I10 BP has been well controlled . Denies chest pain, shortness of breath, dyspnea on exertion, blurred vision. Dyslipidemia 604480989 E 78.5 On atorvastat in 40 mg daily. Gastroesop hageal reflux disease 585890729 K21.9 On omeprazole , reports good symptomati c control on the medication . Depressive disorder 7733 9007 F32.9 Has history of depression . Says symptoms are well controlled . Denies suicidal ideations or passive thoughts of . Does not follow with counseling and does not wish to establish care with counseling . Iron deficiency 79174899 E61.1 Reports a history of iron deficiency anemia, currently on iron supplement ation. Viral screening 56105058 4 Z11.59 [id number] Salbador Tinajero MD [facility] [address] [place] [id number] 10/08/2019 14:47:01 10/08/2019 15:35:33 Type 2 diabetes mellitus 95523987 E11.42 Hemoglobin A1c in December 2018 was [...] discharge summary is not available. Recurrent falls 76475301 2 R29.6 Patient reports 2 episodes of mechanical falls when she slipped on the ice. Congestive heart failure 31782147 I50.9 Patient was started on losartan and metoprolol succinate at discharge. Amina lim, I do not have discharge summary available for review. She has an appointmen t scheduled with cardiology in October. Fatigue 25854925 R53.83 She reporting fatigue and malaise. She says that 2 sisters have diagnosis of hypothyroi dism. Coronary arteriosclerosis 55452644 I25.10 On her last visit, she reported hx of coronary artery disease, reports having 4 stents placed, most recent was 5 years ago, [place] [place]. Per note review and patient report, pacemaker was placed 2 years ago. She presented to the emergency room on 09/24 for acute onset of chest pain and was transferre d to [facility] in [place] and had cardiac catheteriz ation. According to the patient, no new stents were placed. She had medication adjusted at discharge and was placed on ARB. She used to be on bisoprolol and was switched to metoprolol succinate. no active chest pain at this time. She was instructed to call 911/go to ED if develops acute chest pain. [id number] Salbador Tinajero MD [facility] [address] [place] [phone] 12/07/2019 15:32:37 12/07/2019 16:17:08 Type 2 diabetes mellitus [id number] E11.69 [id number] Sara Del Castillo NP [facility] [address] [place] [address] [phone] 12/18/2019 08:14:27 12/18/2019 10:11:48 Vaginitis [id number] N76.0 Advised pt to call if symptoms do not resolve with treatment. [id number] Salbador Tinajero MD [facility] [address] [place] [address] [phone] 12/19/2019 08:14:26 12/20/2019 08:00:46 Type 2 diabetes mellitus [id number] E11.42 Hemoglobin A1c 10.1%. Will increase dose of Lantus, continue with NovoLog at the same dose as she is having controlled blood sugars after meals. Instructed patient about red flags for hypoglycem ic episodes and she is aware of how to manage those. Call clinic if any side effects or any other issues. Plan to recheck hemoglobin A1c in 3 months. Hip pain [id number] M25.55 9 6 weeks of mild to [...] 1 [employer] (MEDICARE REPLACEMENT/A DVANTAGE - HMO) [id number] Deanna Green Laclair [id number] Deanna J Laclair 12/07/2019 1 [employer] (MEDICARE REPLACEMENT/A DVANTAGE - HMO) [id number] Deanna Norma Laclair [id number] Deanna J Laclair 12/18/2019 1 [employer] (MEDICARE REPLACEMENT/A DVANTAGE - HMO) [id number] Deanna Green Laclair [id number] Deanna Green Laclair 12/19/2019 1 [employer] (MEDICARE REPLACEMENT/A DVANTAGE - HMO) [id number] Deanna Green Laclair [id number] Deanna Chacon Notes Date Note Type Note Provider Name and Address Organization Details Recorded Time 09/10/2019 text/html 68-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 Hypertension? p jenny reports good control of hypertension on current medication. She denies chest pain, shortness of breath, dyspnea on exertion, orthopnea, PND. COPD? n ot on oxygen. She is on inhalers, denies shortness of breath, cough or wheezing. Denies any recent episodes of exacerbation. GERD? s ays and omeprazole provides appropriate control of symptoms. Salbador Tinajero MD [address] [place] [address], [phone], [facility] 09/10/2019 16:34:18 10/08/2019 text/html This is a [...] of chest pain. She was transferred to [facility] in [place] and had cardiac cath done on 09/24/19. Unfortunately, the discharge summary is not available and information is gathered from A admission visit. 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 She has an appointment scheduled with cardiology on November 08 at [facility]. She also reports that she was started [...] exertion. She has ongoing lower extremity edema. [facility] is visiting twice weekly for diabetes education [...] or abdominal pain. Salbador Tinajero MD [address] [place], [phone], [facility] 10/08/2019 16:12:10 12/18/2019 text/html This patient was [...] discussed. Patient/guardian was informed how to access [id number] care in the event of an emergency. [...] 4 months ago. Sara Del Castillo NP [address] [place] [address], [phone], [facility] 12/18/2019 09:46:05 12/19/2019 text/html This patient was [...] discussed. Patient was informed how to access [id number] care in the event of an emergency. [...] any skin changes, edema. Salbador Tinajero MD [address] [place] [address], [phone], [facility] 12/19/2019 18:08:01 OBGyn Episode No OBEpisode recorded.
--- OUTSIDE RECORDS SUMMARY | 2024-11-26 16:50 | XMS_ITS | Data Portability ---
Author Organization [place] - [facility] [place] Address [address] [place] [address] Assessment No assessment recorded. Plan of Treatment Reminders Order Date Submit Date Provider Last Modified By Organization Details Last Modified Time Details Appointments None recorded. Lab colon cancer screening, stool 2018 019 [email or web address] (Cologuard Orders Only), [address], [address], [place], [address], 9 14:04:[address] referral - hx NSTEMI, has pacemaker -[facility] (Patient wants to be seen in [place]) 2018 019 [email or web address] [facility], [address] [place], [address], 9 08:13:24 Procedures venipunctu re routine (PROC) 2018 019 [email or web address] Not available 9 07:25:47 Surgeries None recorded. Imaging MAMMO, screening, digital, bilateral 2018 [email or web address] [address] [place], [address], 9 14:53:53 Medication Orders torsemide 5 mg tablet [address] [facility] [place], [address], 9 16:51:42 ferrous sulfate 325 mg (65 mg iron) tablet 2018 019 [facility], [address] [place], [address], 9 12:39:12 Lantus Solostar U-100 Insulin 100 unit/mL (3 mL) subcutaneo us pen 2018 019 [facility] [place], [address], 9 12:39:10 Novolog FlexPen U-100 Insulin aspart 100 unit/mL (3 mL) subcutaneo us 2018 019 [facility], [address] [place], [address], 9 12:39:12 torsemide 20 mg tablet [address], [address] [place], [address], 9 09:35:32 mirtazapin e 15 mg disintegra ting tablet 2018 [facility], [address] [place], [address], 9 12:39:12 gabapentin 400 mg capsule 2018 [facility], [address] [place], [address], 9 12:39:09 Eliquis 5 mg tablet 2018 [facility] [address], [address] [place], [address], 9 12:57:12 omeprazole 20 mg capsule,de layed release 2018 [facility], [address] [place], [address], 9 12:39:09 quetiapine 300 mg tablet 2018 019 [facility], [address] [place], [address], 9 12:39:10 citalopram 20 mg tablet 2018 019 INTERFACE [facility], [address] [place], [address], 9 12:39:11 atorvastat in 40 mg tablet 2018 [email or web address] [facility], [address] [place], [address], 9 18:15:56 Patient TargetsNo targets recorded. Patient Instructions Encounter Date Encounter Id Patient Instructions Last Modified By Organization Details Last Modified Time 01/12/2019 [id number] It was nice meeting you! Labs look [...] concerns! [email or web address] Not available 01/12/2019 15:25:48 01/24/2019 [id number] -Hold the torsemide -Come back and see me Tuesday morning. -We will likely get you on a 24 hour blood pressure monitor when we see you Tuesday. Not available 01/25/2019 15:16:04 01/26/2019 [id number] -Let's restart the torsemide at a low dose. We need to balance your BP and the edema. -BP recheck on Tuesday -We will likely schedule you for a continuous BP monitor next week. -ER if you experience dizziness or SOB. -Call us if you have any questions. Not available 01/26/2019 09:38:26 01/31/2019 [id number] -Continue on current dose of torsemide -Drink plenty of water. 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 Test Type: [place] site algor ithmi c cheryl sis of [...] years or older , who are at [facility] for [facility]. Colog uard has been appro [...] , singl e point in time) of [facility] sk adult s aged 50-84 . Colog uard perfo rmanc e in patie nts ages 45 to 49 years was estim ated by zac-jaun deshpande cheryl sis of near- age group s. Colog uard perfo rmanc e data in a 10,00 0 patie nt pivot al study using colon oscop y as the refer ence kristel d can be acces sed at the [facility] locat ion: www.e xactl abs.c om/re carolin . Addit ional descr iptio n of the Colog uard test proce ss, warni ngs and preca ution s can be found at www.c [email or web address].me m. Rx only. Not Available [email or web address] (Cologuard Orders Only) [address], [place], [address], 01/14/2020 05:59:11 12/22/19 19 12/21/2018 elect lionel smith am Rate & Rhythm Paced 70's Not Available [address], [address], 12/21/2018 15:59:02 12/22/19 19 12/21/2018 jose smith am QRS 150 Not Available [address], [address], 12/21/2018 15:59:02 12/22/19 19 12/21/2018 jose diazgr am MO Interval 108/12 4 Not Available [address], [address], 12/21/2018 15:59:02 12/22/19 19 12/21/2018 jose smith am QT Interval 458/49 8 Not Available [address], [address], 12/21/2018 15:59:02 01/05/20 19 01/05/2019 CBC w/ auto diff WBC 6.8 x10e3 /uL 3.4-10 .8 Not Available [facility] ([facility]) [address] [place], [address], 01/05/2019 09:12:04 01/05/2001/05/2019 CBC w/ auto diff RBC 4.27 x10e6 /uL 3.77-5 .28 Not Available [facility] ([facility]) [address] [place], [address], 01/05/2019 09:12:04 01/05/20 19 01/05/2019 CBC w/ auto diff hemoglobin 13.0 g/dL 11.1-1 5.9 Not Available [facility] ([facility]) [address] [place], [address], 01/05/2019 09:12:04 01/05/20 19 01/05/2019 CBC w/ auto diff hematocrit 41.0 % 34.0-4 6.6 Not Available [facility] ([facility]) [address] [place], [address], 01/05/2019 09:12:04 01/05/20 19 01/05/2019 CBC w/ auto diff MCV 96 fL 79-97 Not Available [facility] ([facility]) [address] [place], [address], 01/05/2019 09:12:04 01/05/20 19 01/05/2019 CBC w/ auto diff MCH 30.4 pg 26.6-3 3.0 Not Available [facility] ([facility]) [address] [facility], [address], 01/05/2019 09:12:04 01/05/2001/05/2019 CBC w/ auto diff MCHC 31.7 g/dL 31.5-3 5.7 Not Available [facility] ([facility]) [address] [facility], [place], [address], 01/05/2019 09:12:04 01/05/20 19 01/05/2019 CBC w/ auto diff RDW 14.6 % 12.3-1 5.4 Not Available [facility] ([facility]) [address] [facility], [place], [address], 01/05/2019 09:12:04 01/05/2001/05/2019 CBC w/ auto diff platelets 166 x10e3 /uL 150-37 9 Eff ectiv e January 08, 2019 the refer ence inter zaid for Plate lets will be watters ing to: 0 - 7 d 140 - 396 x10E3 /uL 8 - 30 d 139 - 531 x10E3 /uL 31 d - 999 yrs 150 - 450 x10E3 /uL Not Available [facility] ([facility]) [address] [facility], [place], [address], 01/05/2019 09:12:04 01/05/2001/05/2019 CBC w/ auto diff neutrophils 63 % not estab. Not Available [facility] ([facility]) [address] [facility], [place], [address], 01/05/2019 09:12:04 01/05/2001/05/2019 CBC w/ auto diff lymphs 24 % not estab. Not Available [facility] ([facility]) [address] [place], [address], 01/05/2019 09:12:04 01/05/2001/05/2019 CBC w/ auto diff monocytes 6 % not estab. Not Available [facility] ([facility]) [address] [facility], [place], [address], 01/05/2019 09:12:04 01/05/2001/05/2019 CBC w/ auto diff eos 5 % not estab. Not Available [facility] ([facility]) [address] [facility], [place], [address], 01/05/2019 09:12:04 01/05/2001/05/2019 CBC w/ auto diff basos 1 % not estab. Not Available [facility] ([facility]) [address] [facility], [place], [address], 01/05/2019 09:12:04 01/05/2001/05/2019 CBC w/ auto diff immature cells REVISING CLERK Not Available [facility] ([facility]) [address] [place], [address], 01/05/2019 09:12:04 01/05/2001/05/2019 CBC w/ auto diff neutrophils (absolute) 4.2 x10e3 /uL 1.4-7. 0 Not Available [facility] ([facility]) [address] [place], [address], 01/05/2019 09:12:04 01/05/20 19 01/05/2019 CBC w/ auto diff lymphs (absolute) 1.7 x10e3 /uL 0.7-3. 1 Not Available [facility] ([facility]) [address] [place], [address], 01/05/2019 09:12:04 01/05/20 19 01/05/2019 CBC w/ auto diff monocytes(ab solute) 0.4 x10e3 /uL 0.1-0. 9 Not Available [facility] ([facility]) [address] [place], [address], 01/05/2019 09:12:04 01/05/20 19 01/05/2019 CBC w/ auto diff eos (absolute) 0.4 x10e3 /uL 0.0-0. 4 Not Available [facility] ([facility]) [address] [facility], [place], [address], 01/05/2019 09:12:04 01/05/2001/05/2019 CBC w/ auto diff baso (absolute) 0.1 x10e3 /uL 0.0-0. 2 Not Available [facility] ([facility]) [address] [place], [address], 01/05/2019 09:12:04 01/05/2001/05/2019 CBC w/ auto diff immature granulocytes 1 % not estab. Not Available [facility] ([facility]) [address] [place], [address], 01/05/2019 09:12:04 01/05/2001/05/2019 CBC w/ auto diff immature grans (abs) 0.1 x10e3 /uL 0.0-0. 1 Not Available [facility] ([facility]) [address] [place], [address], 01/05/2019 09:12:04 01/05/2001/05/2019 CBC w/ auto diff NRBC REVISING CLERK Not Available [facility] ([facility]) [address] [place], [address], 01/05/2019 09:12:04 01/05/2001/05/2019 CBC w/ auto diff hematology comments: REVISING CLERK Not Available [facility] ([facility]) [address] [place], [address], 01/05/2019 09:12:04 01/05/2001/05/2019 CMP, serum or plasm a glucose 473 mg/dL 65-99 above high normal Not Available [facility] ([facility]) [address] [place], [address], 01/05/2019 09:12:05 01/05/2001/05/2019 CMP, serum or plasm a BUN 24 mg/dL 8-27 Not Available [facility] ([facility]) [address] [facility], [address], 01/05/2019 09:12:05 01/05/2001/05/2019 CMP, serum or plasm a creatinine 1.11 mg/dL 0.57-1 .00 above high normal Not Available [facility] ([facility]) [address] [facility] [place], [address], 01/05/2019 09:12:05 01/05/2001/05/2019 CMP, serum or plasm a eGFR if nonafricn AM 51 mL/mi n/1.7 3 >59 below low normal Not Available [facility] ([facility]) [address] [facility] [place], [address], 01/05/2019 09:12:05 01/05/2001/05/2019 CMP, serum or plasm a eGFR if africn AM 59 mL/mi n/1.7 3 >59 below low normal Not Available [facility] ([facility]) [address] [facility] [place], [address], 01/05/2019 09:12:05 01/05/2001/05/2019 CMP, serum or plasm a BUN/creatini ne ratio 22 12-28 Not Available [facility] ([facility]) [address] [facility] [place], [address], 01/05/2019 09:12:05 01/05/2001/05/2019 CMP, serum or plasm a sodium 137 mmol/ L 134-14 4 Not Available [facility] ([facility]) [address] [facility] [place], [address], 01/05/2019 09:12:05 01/05/2001/05/2019 CMP, serum or plasm a potassium 4.7 mmol/ L 3.5-5. 2 Not Available [facility] ([facility]) [address] [facility] [place], [address], 01/05/2019 09:12:05 01/05/20 19 01/05/2019 CMP, serum or plasm a chloride 97 mmol/ L 96-106 Not Available [facility] ([facility]) [address] [place], [address], 01/05/2019 09:12:05 01/05/20 19 01/05/2019 CMP, serum or plasm a carbon dioxide, total 24 mmol/ L 20-29 Not Available [facility] ([facility]) [address] [place], [address], 01/05/2019 09:12:05 01/05/2001/05/2019 CMP, serum or plasm a calcium 9.5 mg/dL 8.7-10 .3 Not Available [facility] ([facility]) [address] [place], [address], 01/05/2019 09:12:05 01/05/20 19 01/05/2019 CMP, serum or plasm a protein, total 6.3 g/dL 6.0-8. 5 Not Available [facility] ([facility]) [address] [place], [address], 01/05/2019 09:12:05 01/05/20 19 01/05/2019 CMP, serum or plasm a albumin 4.1 g/dL 3.6-4. 8 Not Available [facility] ([facility]) [address] [place], [address], 01/05/2019 09:12:05 01/05/20 19 01/05/2019 CMP, serum or plasm a globulin, total 2.2 g/dL 1.5-4. 5 Not Available [facility] ([facility]) [address] [place], [address], 01/05/2019 09:12:05 01/05/20 19 01/05/2019 CMP, serum or plasm a A/G ratio 1.9 1.2-2. 2 Not Available [facility] ([facility]) [address] [place], [address], 01/05/2019 09:12:05 01/05/2001/05/2019 CMP, serum or plasm a bilirubin, total <0.2 mg/dL 0.0-1. 2 Not Available [facility] ([facility]) [address] [place], [address], 01/05/2019 09:12:05 01/05/20 19 01/05/2019 CMP, serum or plasm a alkaline phosphatase 132 IU/L 39-117 above high normal Not Available [facility] ([facility]) [address] [place], [address], 01/05/2019 09:12:05 01/05/2001/05/2019 CMP, serum or plasm a AST (SGOT) 16 IU/L 0-40 Not Available [facility] ([facility] [address] [facility] [place], [address], 01/05/2019 09:12:05 01/05/2001/05/2019 CMP, serum or plasm a ALT (SGPT) 18 IU/L 0-32 Not Available [facility] ([facility]) [address] [place], [address], 01/05/2019 09:12:05 01/05/20 19 01/05/2019 lipid panel , serum cholesterol, total 195 mg/dL 100-19 9 Not Available [facility] ([facility]) [address] [place], [address], 01/05/2019 09:12:06 01/05/2001/05/2019 lipid panel , serum triglyceride s 200 mg/dL 0-149 above high normal Not Available [facility] ([facility]) [address] [place], [address], 01/05/2019 09:12:06 01/05/20 19 01/05/2019 lipid panel , serum HDL cholesterol 58 mg/dL >39 Not Available [facility] ([facility]) [address] [place], [address], 01/05/2019 09:12:06 01/05/20 19 01/05/2019 lipid panel , serum VLDL cholesterol shruthi 40 mg/dL 5-40 Not Available [facility] ([facility]) [address] [place], [address], 01/05/2019 09:12:06 01/05/20 19 01/05/2019 lipid panel , serum LDL cholesterol calc 97 mg/dL 0-99 Not Available [facility] ([facility]) [address] [place], [address], 01/05/2019 09:12:06 01/05/20 19 01/05/2019 lipid panel , serum comment: REVISING CLERK Not Available [facility] ([facility]) [address] [place], [address], 01/05/2019 09:12:06 01/05/20 19 01/05/2019 iron + total iron- yoko ng capac ity (TIBC ), serum iron bind.cap.(TI BC) 296 ug/dL 250-45 0 Not Available [facility] ([facility]) [address] [place], [address], 01/05/2019 09:12:06 01/05/2001/05/2019 iron + total iron- yoko ng capac ity (TIBC ), serum UIBC 244 ug/dL 118-36 9 Not Available [facility] ([facility]) [address] [place], [address], 01/05/2019 09:12:06 01/05/2001/05/2019 iron + total iron- yoko ng capac ity (TIBC ), serum iron 52 ug/dL 27-139 Not Available [facility] ([facility]) [address] [place], [address], 01/05/2019 09:12:06 01/05/20 19 01/05/2019 iron + total iron- yoko ng capac ity (TIBC ), serum iron saturation 18 % 15-55 Not Available [facility] ([facility]) [address] [place], [address], 01/05/2019 09:12:06 01/05/2001/05/2019 vitam in B12 + folat e, serum or blood vitamin B12 440 pg/mL 232-12 45 Not Available [facility] ([facility]) [address] [place], [address], 01/05/2019 09:12:07 01/05/2001/05/2019 vitam in B12 + folat e, serum or blood folate (folic acid), serum 11.0 NG/mL >3.0 A serum folat e kimmie ntrat ion of less than 3.1 ng/mL is consi dered to repre sent clini shruthi defic iency . Not Available [facility] ([facility]) [address] [facility], [place], [address], 01/05/2019 09:12:07 01/05/2001/05/2019 HbA1c (hemo globi n A1c), blood hemoglobin A1C 11.0 % 4.8-5. 6 above high normal Predi abete s: 5.7 - 6.4 Diabe myke: >6.4 Glyce valentín contr ol for adult s with diabe myke: <7.0 Not Available [facility] ([facility]) [address] [facility], [place], [address], 01/05/2019 09:12:07 01/05/2001/05/2019 keven tin, serum or plasm a ferritin, serum 52 NG/mL 15-150 Not Available [facility] ([facility]) [address] [place], [address], 01/05/2019 09:12:08 03/01/2003/01/2019 XR, chest , 2 view No observ ation record ed. [email or web address] Not Available 2018 17:48:45 03/01/20 19 03/01/2019 CT, chest , w/ contr ast No observ ation record ed. [email or web address] Not Available 2018 12:24:57 03/15/20 19 03/15/2019 XR, chest , 2 view No observ ation record ed. [email or web address] [facility] [address] [facility], [place], [address], 03/16/2019 08:07:13 03/29/20 19 03/29/2019 MAMMO , [...] ardio gram No observ ation record ed. [address] [place], [address], 08/13/2019 14:33:03 08/13/20 19 08/13/2019 US, echoc ardio gram No observ ation record ed. [address] [place], [address], 08/13/2019 14:32:45 Result Notes None recorded. Problems Name Problem SNOMED Code Status Onset Date Resolution Date Notes Provider Name and Address Organization Details Recorded Time Congestive heart failure 19635917 Active 2018 Alis umana [facility] 9 09:57:57 Coronary arterioscleros is 32226173 Active 2018 Alis umana [facility] 9 09:58:16 Chronic obstructive pulmonary disease 04093348 [facility] 09:58[facility]22 [facility] disease 65497144 [facility] 09:58:32 Monitoring of pacemaker 57065535 Active 2018 Alis [facility] 9 09:58:46 Pulmonary embolism 20920419 Active 2018 Alis [facility] 9 09:59:03 Diabetes mellitus 32605637 Active 2018 [facility] 9 10:06:13 Depressive disorder 76954292 Active 2018 [facility] 9 10:15:09 Acute non-ST segment elevation myocardial infarction 783062041 Active 2018 [facility] 9 10:15:28 Opioid abuse 3008590 Active 2018 [facility] 9 10:15:48 Left bundle branch block 60816042 Active 2018 [facility] 9 10:16:12 Hypertensive disorder 45988742 Active 2018 [facility] 9 10:16:19 Gastroesophage al reflux disease 249698293 Active 2018 [facility] 9 10:16:25 Dyslipidemia 831256125 Active 2018 [facility] 9 10:16:37 Anxiety 83014181 Active 2018 [facility] 9 10:16:51 Problem Notes None recorded. Procedures Surgical History Date Name Laterality Status Provider Name and Address Organization Details Recorded Time 01/05/20 19 Venipuncture completed Cassy Maki [facility] 01/04/2019 10:47:25 procedure on gallbladder completed [facility] 12/21/2018 10:00:31 Appendectomy completed [facility] 12/21/2018 10:00:48 cardiac pacemaker procedure completed [facility] 12/21/2018 10:00:57 Tubal Ligation completed [facility] 12/21/2018 10:01:12 Hernia Repair completed [facility] 12/21/2018 10:01:22 Imaging Results Imaging Date Name Status LastModified by Organization Details LastModified Time 03/01/2019 XR, chest, 2 view completed Informa tion not available 03/01/2019 17:48:45 03/01/2019 CT, chest, w/ contrast completed Information not available 03/02/2019 12:24:57 03/15/2019 XR, chest, 2 view completed [email or web address] [facility] [address] [facility], [place], [address], 03/16/2019 08:07:13 03/29/2019 MAMMO, screening, digital, bilateral completed Information not available 04/04/2019 06:54:46 05/09/2019 XR, chest, 2 view completed Informa tion not available 05/09/2019 20:44:52 05/09/2019 CT, abdomen + pelvis, w/ contrast completed Information not available 05/09/2019 20:43:47 08/13/2019 US, echocardiogram [place] [address] [place], [address], 08/13/2019 14:33:03 08/13/2019 US, echocardiogram completed [address] [place], [address], 08/13/2019 14:32:45 Procedure Notes None recorded. Medical Equipment None Reported. Allergies Allergen ID Allergen Name Allergen Category Reaction Reaction Severity Criticality Documentation Date Start Date Code Code System Note Provider Name and Address Organization Details Recorded Time 3563 Bactrim medicatio n Not available Not available Not available 12/21/2018 81453 9 RxNorm [facility] 9 09:54:20 3564 Substance with sulfonami de structure and antibacte rial mechanism of action (substanc e) medicatio n Not available Not available Not available 12/21/2018 83224 [facility] 09:54:26 3565 naproxen medicatio n Not available Not available Not available 12/21/2018 7258 RxNorm [facility] 9 09:54:33 3566 Medicinal product containin g cephalosp arturo and acting as antibacte rial agent (product) medicatio n Not available Not available Not available 12/21/2018 54570 9009 SNOMED [facility] 9 09:57:41 Medications Name Sig Start Date [...] Address Organization Details Last Updated DateTime 9 76090.3 6 g 38.1 kg/m2 160.02 cm 88 /min 98 % 98 % 110 mm[Hg] 68 mm[Hg] Maribel rodríguez [facility] 9 14:17:58 Date Recorded Body temperature Heart rate Oxygen saturation Oxygen saturation in Arterial blood by Pulse oximetry Systolic blood pressure Diastolic blood pressure Provider Name and Address Organization Details Last Updated DateTime 9 97.7 [degF] 71 /min 93 % 93 % 106 mm[Hg] 63 mm[Hg] Alis [facility] 9 16:14:49 Date Recorded Body height Body temperature Body mass index (BMI) Body weight Oxygen saturation Oxygen saturation in Arterial blood by Pulse oximetry Heart rate Systolic blood pressure Diastolic blood pressure Provider Name and Address Organization Details Last Updated DateTime 9 160.02 cm 97.5 [degF] 38.3 kg/m2 02938.9 5 g 95 % 95 % 77 /min 121 mm[Hg] 67 mm[Hg] Alis [facility] 9 09:14:33 Date Recorded Body height Body mass index (BMI) Body weight Body temperature Oxygen saturation Oxygen saturation in Arterial blood by Pulse oximetry Heart rate Systolic blood pressure Diastolic blood pressure Systolic blood pressure Diastolic blood pressure Provider Name and Address Organization Details Last Updated DateTime 9 160.02 cm 39.4 kg/m2 087626. 22 g 97.7 [degF] 97 % 97 % 77 /min 144 mm[Hg] 73 mm[Hg] 127 mm[Hg] 78 mm[Hg] Sara Warren [facility] 9 15:37:01 Social History Question Answer Notes LastModified by Organizat ion Details LastModified Time Tobacco Smoking Status [facility] 10:00:17 Do You Have An Advance [...] Do You Have A Medical Power Of Hatch Tender? No Information not available 12/21/2018 What Was The Date Of Your Most Recent Tobacco Screening? 01/26/2019 Information not available 03/15/2019 Seat Belts Used Routinely Yes Information not available 12/21/2018 Do You Have Smoke And Carbon Monoxide Detectors In Your Home? Yes Information not available 12/21/2018 Sex: Unknown Functional Status Question Answer Note LastModified by Organizat ion Details LastModified Time What is your exercise [...] Pneumococcal conjugate PCV 13 8 [facility] 01/[facility]2019 10:22:42 pneumococcal polysaccharide PPV23 2 completed [facility] 01/05/2019 10:22:53 pneumococcal, unspecified formulation 6 completed Jennifer [facility] 01/05/2019 10:23:16 Tdap 0 completed Jennifer Lagos [facility] 01/05/2019 10:23:30 zoster live 6 completed Jennifer [facility] 01/05/2019 10:23:42 Past Encounters Encounter ID Performer Location Encounter Start Date Encounter Closed Date Diagnosis/Indication Diagnosis SNOMED-CT Code Diagnosis ICD10 Code Diagnosis Note [address] [address] 12/21/2018 09:49:31 12/21/2018 10:57:22 Iron deficiency anemia 65939264 D50.9 Essential hypertension 80267028 I10 Anxiety 54554111 F41.9 Neuropathy due to diabetes mellitus 272929289 E13.40 Gastroesop hageal reflux disease 131650123 K21.9 Depressive disorder 3548 9007 F32.9 History of pulmonary embolus 652162273 Z86.711 Chest pain 54188828 R07. 9 [address] [address] 01/04/2019 08:53:58 01/04/2019 10:14:08 Chronic obstructive pulmonary disease 92921676 J44.9 Congestive heart failure 55885430 I50.9 Coronary arteriosclerosis 64888475 I25.10 Diabetes mellitus 083302 09 E11.9 Kidney disease 13035870 N08 [id number] [address] 01/12/2019 13:26:52 01/12/2019 15:31:02 Type 2 diabetes mellitus 94863605 E11.37X1 Coronary arteriosclerosis 53997412 I25.10 Anxiety 33905809 F41.9 Essential hypertension 39994731 I10 Neuropathy due to diabetes mellitus 135264633 E11.40 Hyperlipidemia 91696267 E78.5 Gastroesop hageal reflux disease 059609566 K21.9 History of pulmonary embolus 364303631 Z86.711 Depressive disorder 3548 9007 F32.9 Screening for malignant neoplasm of breast 755097608 Z12.31 Iron deficiency 05105081 E61.1 Screening for malignant neoplasm of colon 588298814 Z12.11 [address] [facility] [address] [place] [address] 01/24/2019 16:04:33 01/24/2019 16:34:04 Essential hypertension 43758131 I10 [address] [address] 01/26/2019 09:06:37 01/26/2019 09:33:21 Hypertensive disorder 12354534 I10 [address] [address] 01/31/2019 15:27:37 01/31/2019 15:45:19 Health Concerns Section Related Observation LastModified by Organization Detai ls LastModified Time None Recorded Concern Status LastModified by Organization Details LastModified Time None Recorded Advance Directives Directive N: Payers Encounter Date Sequence Insurance Name Policy Number Policy Lambert Covered Member ID Lambert Member ID Guarantor Name 01/04/2019 1 [employer]ICARE [place]: [employer] Deanna J Laclair [id number] Deanna Laclair 01/12/2019 1 [employer]: [employer] Deanna J Laclair [id number] 0 Deanna Laclair 01/24/2019 1 [employer] [place]: [employer] Deanna J Laclair [id number] Deanna Laclair 01/26/2019 1 [employer]: [employer] Deanna J Laclair [id number] 0 Deanna Laclair 01/31/2019 1 [employer]ICARE [place]: [employer] Deanna J Laclair [id number] 0 Deanna Laclair Notes Date Note Type Note Provider Name and Address Organization Details Recorded Time 01/04/2019 text/html Patient is here for her labs to be drawn per orders of her provider. Cassy umana MS - [facility] 01/04/2019 10:51:07 01/12/2019 text/html Deanna is here today to establish care. She recently moved here from [place], [place] 1. DMII: This is treated with [...] years ago. Most recently seeing cardiology in [place]. 6. Anxiety/Depression : controlled with citalopram. 7. COPD: never been on inhalers, denies SOB, cough or wheezing. 8. Chronic kidney disease: does not recall ever having an ultrasound of kidneys. Current GFR 51. 7. Due for mammogram, due for colon cancer screening. States she had bone density testing over 10 years ago. Jennifer umana [facility] 01/14/2019 15:05:09 01/24/2019 text/html Pt comes in [...] no weakness or neurological deficits. Lianna umana [facility] 01/25/2019 15:17:26 01/26/2019 text/html Pt has had [...] has been discussed with PCP. IONA [facility] 01/26/2019 09:38:55 01/31/2019 text/html Blood pressure h as improved. Light headedness/dizzine ss has improved. She still feels tired but her fatigue level is improved from previous. She is tolerating dose of torsemide well. IONA [facility] 01/31/2019 16:31:20 OBGyn Episode No OBEpisode recorded.
== END 2024-11-26 15:17 | disposition home or self-care (01) ==
LOC: HO.HSMS 14:03
PROVIDERS: PCP Family Medicine; Visit Provider Nurse Practitioner Family
DX: R25.1 Tremor, unspecified (principal); R26.81 Unsteadiness on feet; M85.80 Other specified disorders of bone density and structure, unspecified site
CPT/HCPCS: 99214

== ENCOUNTER → 2024-11-26 14:02 | Outpatient (BNVA) | payer OTHER, SELFPAY | PROVIDERS: PCP Family Medicine; Visit Provider Nurse Practitioner Family | DX: R25.1 Tremor, unspecified (principal); R26.81 Unsteadiness on feet; M85.80 Other specified disorders of bone density and structure, unspecified site; Z95.0 Presence of cardiac pacemaker; Z86.73 Personal history of transient ischemic attack (TIA), and cerebral infarction without residual deficits | CPT/HCPCS: 99212 ==

== ENCOUNTER 2025-01-22 15:35 | Outpatient (AMB) | payer OTHER, SELFPAY ==
--- NOTE | 2025-01-22 08:37 | A.OFFVIS_ITS ---
Vital Signs 01/22/25 15:50 Height 5 ft 3 in Weight 218 lb 4.122 oz BMI 38.7 BP 114/62 Blood Pressure Location Rt brachial Position Sitting Pulse 93 Pulse Source Pulse Oximeter Pulse Oximetry (%) 96 Oxygen Delivery Method Room Air Intake Visit Reasons: DM Intake Note: Patient presents today for a follow-up on Type 2 Diabetes Mellitus: Last Diabetic eye exam was on: DUE Last Podiatry exam was on: Does not see a [employer] Most recent HbA1c: 6.7%, 01/22/2025 Random Glucose- 157 mg/dL, Today Console Attendant Required: No Accompanied by: Self / Same As Patient Allergies Cephalosporins [CEPHALOSPORINS] Allergy (Intermediate, Verified 01/22/25 15:43) RASH oxycodone [From Tylox] Allergy (Intermediate, Verified 01/22/25 15:43) RASH Sulfa (Sulfonamide Antibiotics) [SULFA (SULFONAMIDE ANTIBIOTICS)] Allergy (Intermediate, Verified 01/22/25 15:43) RASH lisinopril Adverse Reaction (Severe, Verified 01/22/25 15:43) contraindication sulfamethoxazole [From Bactrim] Adverse Reaction (Severe, Verified 01/22/25 15:43) Rash trimethoprim [From Bactrim] Adverse Reaction (Severe, Verified 01/22/25 15:43) Rash naproxen [NAPROXEN] Adverse Reaction (Intermediate, Verified 01/22/25 15:43) contraindication HPI Comments Details: 74 YO female who is seen in follow-up for T2DM. She was last seen 10/04/24 with an A1C of 8.5% down from 10.0%. Hemoglobin A1c 01/22/2025 6.7 %. At our last visit she was given a referral to Ophthalmology and prescribed a freestyle Danica 3+. 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 Initially diagnosed with T2DM 1999. Was initially started on treatment with insulin and metformin, metformin was stopped due to low EGFR this was stopped 2017. GLP 1 agonist contraindicated due to history of gastroparesis requiring hospitalization Current regimen Lantus 60 units Humalog 2-16 units before meals on a sliding scale starting at 150, going up by 2 units every 50 points 3x daily with meals jardiance 25mg 125 to 168 checks several times per day She has not yet received her freestyle Danica 3+ reader or sensor. These were approved through [facility] Denies retinopathy. Eye exam overdue Has nephropathy; with diminished EGFR 53 2022 no microalbumin in EHR Has neuropathy: Has symptoms of numbness, pain without cramping of the lower extremities. Saw Podiatry in the past and goes to a nail spa for pedicure. She would like referral to Podiatry and complaints of roughness of her skin on her heels. Has gastroparesis requiring hospitalization in the past. Has HLD on statin last LDL 100 08/15 down from 126 Has CAD with implantable defibrillator. Followed by Dr. Costa at [facility] has appt July 2024 Spoke with her paleology professor this am as she had substernal CP. Mobile Tester advised to continue nitro prn mr in 5 min x 2 then 911. She was hospitalized with chest pain in October at [facility]. NO reports of low glucose. Lowest recently 138 Treats lows with oj. [Checks] sugar after to ensure it is rising Family history of T2DM in [oldest son type 2]. Weight: Stable PFSH Medical History Diabetic neuropathy Anemia Type 2 diabetes mellitus with unspecified complications Atherosclerotic cardiovascular disease Cardiac resynchronization therapy defibrillator (REHAB AIDE-D) in place Surgical History History of colonoscopy H/O endoscopy History of implantable cardioverter-defibrillator (ICD) placement (~02/09/17) History of cardiac catheterization (~08/2015) History of umbilical hernia repair History of appendectomy History of cholecystectomy History of tubal ligation Family History Father Myocardial infarction Mother Uterine cancer Lung cancer Maternal Aunt Uterine cancer Mouth cancer Social History Housing: House Patient Tobacco Use Status: Never used Tobacco e-Cigarette/Vaping Use: Never Used Second Hand Smoke Exposure: No service: No Current occupational status: retired Current occupational exposures/hazards: No Cognitive needs: Yes Hearing needs: No Vision needs: Yes Physical Exam Vital Signs: Last Vital Signs Pulse 93 01/22/25 15:50 BP 114/62 01/22/25 15:50 Pulse Ox 96 01/22/25 15:50 Oxygen Delivery Method Room Air 01/22/25 15:50 BMI result Body Mass Index 38.7 Const Other: Absence of Cushingoid features. Absence of acromegalic features. Neck exam reveals nl size thyroid about 15 gms. No thyroid nodules palpable. Heart S1 S2, Reg R/R. No M/R G. Skin exam reveals absence of vitiligo or acanthosis nigricans. No edema Tremor left hand. Visual exam of foot performed. No ulcerations or open lesions. No inter digit maceration or fissuring. No onychomycosis, no callouses. Sensation intact to monofilament exam. Vibratory sensation is diminished with 128 Hz tuning fork. Skin dry bilateral heels. Results AMB Hemoglobin A1c AMB Hemoglobin A1c 6.7 % Last Edit by CHUCK Llanes on 01/22/25 16:04 Results Reviewed Results Reviewed: Laboratory Last Values Glucose (Clinic) 157 mg/dL (60-115) H 01/22/25 15:54 Hgb A1c (Clinic) 6.7 % (4.0-6.0) H 01/22/25 15:56 Assessment & Plan Assessment & Plan Orders: Orders AMB Hemoglobin A1c Today E11.65 - Type 2 diabetes mellitus with hyperglycemia Referrals Podiatry Referral E11.40 - Type 2 diabetes mellitus with diabetic neuropathy, unspecified Medications: New glucagon 3 mg/actuation (Baqsimi) 3 mg intranasal ONCE PRN 2 ea 1RF unresponsive hypglycemia 30 days MDD 6mg Changed From insulin glargine (Lantus Solostar U-100 Insulin) 54 units (0.54 mL) subcut DAILY 30 days 18 mL 3RF To insulin glargine (Lantus Solostar U-100 Insulin) 60 units (0.6 mL) subcut DAILY 18 mL 3RF 30 days Refilled insulin aspart U-100 (Novolog FlexPen U-100 Insulin aspart) subcutaneously use as directed; 151-200 Give 2 units 201-250 Give 4 units 251-300 Give 6 units 301- 350 Give 8 units 351-400 Give 10 units 401-450 Give 12 units > 450 Give 12 units & call 30 mL 3RF 30 days blood-glucose sensor (FreeStyle Danica 3 Plus Sensor device) every 15 days for use with reader 1 ea 0RF E11.65 - Type 2 diabetes mellitus with hyperglycemia blood-glucose sensor (FreeStyle Danica 3 Plus Sensor device) As directed 2 ea 11RF Coding
[2025-01-22 15:50] VITALS: BP 114/62; PULSE 93; O2SAT 96; BMI 38.7
[2025-01-22 15:58] LABS: Glucose, Whole Blood 157 mg/dL (60-115)
--- OUTSIDE RECORDS SUMMARY | 2025-01-22 16:59 | XMS_ITS | Data Portability ---
Author Organization [facility], RADIOLOGY Address [address] [place] [address] Care Team Providers Care Sanding Supervisor Name Role Phone SALBADOR TINAJERO Primary Care Provider Assessment No assessment recorded. Plan of Treatment Reminders Order Date Submit Date Provider Last Modified By Organization Details Last Modified Time Details Appointments None recorded. Lab HbA1c (hemoglobi n A1c), blood 2019 020 [facility], [address] [place], [address], 0 08:44:24 TSH, ultra-sens itive, serum 2019 020 [facility] (Lab), [address] [place] [address], [address], 0 17:03:11 BMP, serum or plasma 2019 020 [facility] (Lab), [address] [place] [address], [address], 0 17:03:05 hepatitis C virus Ab, serum 2019 020 [facility] (Lab), [address] [place], [address], 0 07:05:33 HIV 1+2 AB + HIV 1 p24 Ag, qualitativ e immunoassa y, serum 2019 020 [facility] (Lab), [address] [place], [address], 0 10:06:15 hepatitis B virus surface Ab, quantitati ve immunoassa y, serum 2019 020 [facility] (Lab), [address] [place], [address], 0 07:05:36 CBC w/ auto diff 2019 020 [facility] (Lab), [address] [place], [address], 0 10:00:00 iron + total iron-yoko ng capacity (TIBC), serum 2019 020 [facility] (Lab), [address] [place], [address], 0 11:00:15 microalbum in/creatin ine, mass ratio, urine 2019 020 [facility] (Lab), [address] [place], [address], 0 10:11:23 glycohemog lobin, total, blood 2019 020 [facility] (Lab), [address] [place], [address], 0 10:11:18 lipid panel w/ direct LDL, serum 2019 020 [facility] (Lab), [address] [place], [address], 0 10:12:10 CMP, serum or plasma 2019 020 [facility] (Lab), [address] [place], [address], 0 10:12:20 Referral physical therapist referral [address] [facility], [address] [place], [address], 0 08:59:08 diabetic ophthalmol ogy referral 2019 [facility] 18 Not available 0 07:24:[address] referral 2019 [facility] 18 Not available 0 07:24:51 Procedures None recorded. Surgeries None recorded. Imaging None recorded. Medication Orders Tylenol Extra Strength 500 mg tablet 2019 [facility], [address] [place], [address], 0 15:47:19 Lantus Solostar U-100 Insulin 100 unit/mL (3 mL) subcutaneo us pen 2019 [facility]FACE [facility], [address] [place], [address], 0 15:47:21 Diflucan 150 mg tablet 2019 020 [facility], [address] [place], [address], 0 09:37:14 Lantus Solostar U-100 Insulin 100 unit/mL (3 mL) subcutaneo us pen 2019 020 [facility], [address] [place], [address], 0 15:58:04 Novolog FlexPen U-100 Insulin aspart 100 unit/mL (3 mL) subcutaneo us 2019 020 [facility], [address] [place], [address], 0 15:58:02 Novolog FlexPen U-100 Insulin aspart 100 unit/mL (3 mL) subcutaneo us 2019 020 [facility], [address] [place], [address], 0 16:12:47 nitroglyce rin 0.4 mg sublingual tablet 2019 020 [facility], [address] [place], [address], 0 16:12:50 Patient TargetsNo targets recorded. Patient InstructionsNo instructions recorded. 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 Co ronary arteriosclerosis Referring Physician: [...] x10^3 /uL 4.0 to 10.0 Not Available [facility] (Lab) [address] [place], [address], 09/11/2019 10:00:00 09/11/19 20 09/11/2019 CBC w/ auto diff red blood cells 4.39 x10^6 /uL 3.93 to 5.22 Not Available [facility] (Lab) [address] [place], [address], 09/11/2019 10:00:00 09/11/1909/11/2019 CBC w/ auto diff hemoglobin 13.8 g/dL 11.2 to 15.7 Not Available [facility] (Lab) [address] [place], [address], 09/11/2019 10:00:00 09/11/19 20 09/11/2019 CBC w/ auto diff hematocrit 41.7 % 34 to 45 Not Available [facility] (Lab) [address] [place], [address], 09/11/2019 10:00:00 09/11/19 20 09/11/2019 CBC w/ auto diff MCV 95.0 fL 79 to 94 high Not Available [facility] (Lab) [address] [place], [address], 09/11/2019 10:00:00 09/11/19 20 09/11/2019 CBC w/ auto diff MCH 31.4 pg 26.6 to 32.2 Not Available [facility] (Lab) [address] [place], [address], 09/11/2019 10:00:00 09/11/19 20 09/11/2019 CBC w/ auto diff MCHC 33.1 g/dL 32 to 36.5 Not Available [facility] (Lab) [address] [place], [address], 09/11/2019 10:00:00 09/11/19 20 09/11/2019 CBC w/ auto diff RDW-SD 43.0 fL 35.0 to 46.0 Not Available [facility] (Lab) [address] [place], [address], 09/11/2019 10:00:00 09/11/19 20 09/11/2019 CBC w/ auto diff RDW-CV 12.7 % 10.9 to 14.4 Not Available [facility] (Lab) [address] [place], [address], 09/11/2019 10:00:00 09/11/19 20 09/11/2019 CBC w/ auto diff platelet 157 x10^3 /uL 145 to 370 Not Available [facility] (Lab) [address] [place], [address], 09/11/2019 10:00:00 09/11/19 20 09/11/2019 CBC w/ auto diff MPV 11.2 fL 9.0 to 12.0 Not Available [facility] (Lab) [address] [place], [address], 09/11/2019 10:00:00 09/11/19 20 09/11/2019 CBC w/ auto diff manual differential NO normal Not Available [facility] (Lab) [address] [place], [address], 09/11/2019 10:00:00 09/11/19 20 09/11/2019 CBC w/ auto diff platelet estimate NOT INDICA PETER normal Not Available [facility] (Lab) [address] [place], [address], 09/11/2019 10:00:00 09/11/19 20 09/11/2019 CBC w/ auto diff RBC morphology NOT INDICA PETER normal Not Available [facility] (Lab) [address] [place], [address], 09/11/2019 10:00:00 09/11/19 20 09/11/2019 CBC w/ auto diff neutrophil % 63.7 % Not Available [facility] (Lab) [address] [place], [address], 09/11/2019 10:00:00 09/11/19 20 09/11/2019 CBC w/ auto diff lymphocyte % 24.9 % Not Available [facility] (Lab) [address] [place], [address], 09/11/2019 10:00:00 09/11/19 20 09/11/2019 CBC w/ auto diff monocyte % 6.7 % Not Available [facility] (Lab) [address] [place], [address], 09/11/2019 10:00:00 09/11/19 20 09/11/2019 CBC w/ auto diff eosinophi % 4.1 % Not Available [facility] (Lab) [address] [place], [address], 09/11/2019 10:00:00 09/11/19 20 09/11/2019 CBC w/ auto diff basophil % 0.6 % Not Available [facility] (Lab) [address] [place], [address], 09/11/2019 10:00:00 09/11/19 20 09/11/2019 CBC w/ auto diff neutrophil absolute 5.5 x10^3 /uL 1.5 to 6.3 Not Available [facility] (Lab) [address] [place], [address], 09/11/2019 10:00:00 09/11/19 20 09/11/2019 CBC w/ auto diff lymphocyte absolute 2.2 x10^3 /uL 1 to 3.6 Not Available [facility] (Lab) [address] [place], [address], 09/11/2019 10:00:00 09/11/19 20 09/11/2019 CBC w/ auto diff monocyte absolute 0.6 x10^3 /uL 0.2 to 1 Not Available [facility] (Lab) [address] [place], [address], 09/11/2019 10:00:00 09/11/19 20 09/11/2019 CBC w/ auto diff eosinophil absolute 0.4 x10^3 /uL 0 to 0.5 Not Available [facility] (Lab) [address] [place], [address], 09/11/2019 10:00:00 09/11/19 20 09/11/2019 CBC w/ auto diff basophil absolute 0.1 x10^3 /uL 0 to 0.2 Not Available [facility] (Lab) [address] [place], [address], 09/11/2019 10:00:00 09/11/19 20 09/11/2019 glyco hemog lobin , total , blood glycosolated hemoglobin A1C 11.9 % 4.5 to 6.2 high Not Available [facility] (Lab) [address] [place], [address], 09/11/2019 10:11:18 09/11/19 20 09/11/2019 micro album in/cr eatin ine, mass ratio , urine microalbumin , random urine 0.21 mg/dL 0.13 to 2.00 Not Available [facility] (Lab) [address] [place], [address], 09/11/2019 10:11:22 09/11/19 20 09/11/2019 micro album in/cr eatin ine, mass ratio , urine creatinine urine 40.44 mg/dL Not Available [facility] (Lab) [address] [place], [address], 09/11/2019 10:11:22 09/11/19 20 09/11/2019 micro album [...] than 300 mg/gm Creat . Not Available [facility] (Lab) [address] [place], [address], 09/11/2019 10:11:22 09/11/19 20 09/11/2019 lipid panel w/ direc t LDL, serum cholesterol 177 mg/dL 26 to 192 Not Available [facility] (Lab) [address] [place], [address], 09/11/2019 10:12:10 09/11/19 20 09/11/2019 lipid panel w/ direc t LDL, serum triglyceride s 175 mg/dL 0 to 200 Not Available [facility] (Lab) [address] [place], [address], 09/11/2019 10:12:10 09/11/19 20 09/11/2019 lipid panel w/ direc t LDL, serum LDL calculated vrh 90 mg/dL 0 to 100 Not Available [facility] (Lab) [address] [place], [address], 09/11/2019 10:12:10 09/11/19 20 09/11/2019 lipid panel w/ direc t LDL, serum HDL cholesterol 52 mg/dL 35 to 85 Not Available [facility] (Lab) [address] [place], [address], 09/11/2019 10:12:10 09/11/19 20 09/11/2019 lipid panel [...] x a direc t LDL. Not Available [facility] (Lab) [address] [place], [address], 09/11/2019 10:12:10 09/11/19 20 09/11/2019 CMP, serum or plasm a sodium 137 mmol/ L 136 to 145 Not Available [facility] (Lab) [address] [place], [address], 09/11/2019 10:12:20 09/11/19 20 09/11/2019 CMP, serum or plasm a potassium 4.1 mmol/ L 3.5 to 5.1 Not Available [facility] (Lab) [address] [place], [address], 09/11/2019 10:12:20 09/11/19 20 09/11/2019 CMP, serum or plasm a chloride 102 mmol/ L 98 to 107 Not Available [facility] (Lab) [address] [place], [address], 09/11/2019 10:12:20 09/11/19 20 09/11/2019 CMP, serum or plasm a carbon dioxide 25 mmol/ L 21 to 32 Not Available [facility] (Lab) [address] [place], [address], 09/11/2019 10:12:20 09/11/19 20 09/11/2019 CMP, serum or plasm a BUN 19 mg/dL 7 to 18 high Not Available [facility] (Lab) [address] [place], [address], 09/11/2019 10:12:20 09/11/19 20 09/11/2019 CMP, serum or plasm a creatinine 1.13 mg/dL 0.55 to 1.02 high Not Available [facility] (Lab) [address] [place], [address], 09/11/2019 10:12:20 09/11/19 20 09/11/2019 CMP, serum or plasm a glucose, random 363 mg/dL 74 to 106 high Not Available [facility] (Lab) [address] [place], [address], 09/11/2019 10:12:20 09/11/19 20 09/11/2019 CMP, serum or plasm a calcium 9.0 mg/dL 8.5 to 10.1 Not Available [facility] (Lab) [address] [place], [address], 09/11/2019 10:12:20 09/11/19 20 09/11/2019 CMP, serum or plasm a anion gap 10.0 mmol/ L 5 to 15 Not Available [facility] (Lab) [address] [place], [address], 09/11/2019 10:12:20 09/11/19 20 09/11/2019 CMP, serum or plasm a glomerular filtration rate 48 mL/mi n/1.7 3_m2 Not Available [facility] (Lab) [address] [place], [address], 09/11/2019 10:12:20 09/11/19 20 09/11/2019 CMP, serum or plasm a total bilirubin 0.4 mg/dL 0.2 to 1.0 Not Available [facility] (Lab) [address] [place], [address], 09/11/2019 10:12:20 09/11/19 20 09/11/2019 CMP, serum or plasm a ALT(SGPT) 44 U/L 12 to 78 Not Available [facility] (Lab) [address] [place], [address], 09/11/2019 10:12:20 09/11/19 20 09/11/2019 CMP, serum or plasm a AST (SGOT) 30 U/L 15 to 37 Not Available [facility] (Lab) [address] [place], [address], 09/11/2019 10:12:20 09/11/19 20 09/11/2019 CMP, serum or plasm a alkaline phosphatase 112 U/L 46 to 116 Not Available [facility] (Lab) [address] [place], [address], 09/11/2019 10:12:20 09/11/19 20 09/11/2019 CMP, serum or plasm a albumin 3.1 g/dL 3.4 to 5.0 low Not Available [facility] (Lab) [address] [place], [address], 09/11/2019 10:12:20 09/11/19 20 09/11/2019 CMP, serum or plasm a total protein 6.8 g/dL 6.4 to 8.3 Not Available [facility] (Lab) [address] [place], [address], 09/11/2019 10:12:20 09/11/19 20 09/11/2019 CMP, serum [...] than 70 years of age. Not Available [facility] (Lab) [address] [place], [address], 09/11/2019 10:12:20 09/11/19 20 09/11/2019 iron + total iron- yoko ng capac ity (TIBC ), serum iron 57 ug/dL 50 to 170 Not Available [facility] (Lab) [address] [place], [address], 09/11/2019 11:00:14 09/11/19 20 09/11/2019 iron + total iron- yoko ng capac ity (TIBC ), serum total iron binding capacity 248 ug/dL 250 to 450 low Not Available [facility] (Lab) [address] [place], [address], 09/11/2019 11:00:14 09/11/1909/11/2019 iron + total iron- yoko ng capac ity (TIBC ), serum % iron saturation 23 % 15 to 50 Iron Satur ation value s below 15% indic ate iron defic ient eryth ropoi esis. Not Available [facility] (Lab) [address] [place], [address], 09/11/2019 11:00:14 09/11/19 20 09/12/2019 hepat itis [...] [address], [place] [address] Lab Direc tor: Lelia Duncan MD, Phone : [phone] Not Available [facility] (Lab) [address] [place] [address], [address], 09/12/2019 07:05:33 09/11/19 20 09/12/2019 hepat itis [...] an [address], [place] [address] Lab Direc tor: Lelia Duncan MD, Phone : [phone] Not Available [facility] (Lab) [address] [place] [address], [address], 09/12/2019 07:05:36 09/11/19 20 09/12/2019 HIV 1+2 AB + HIV 1 p24 Ag, quali tativ e immun oassa y, serum hivreflx Non Reacti ve non reacti ve normal Perfo rmed at: JUANITA Loyd rp [place] [address], [place] [address] Lab Direc tor: Lelia Duncan MD, Phone : [phone] Not Available [facility] (Lab) [address] [place] [address], [address], 09/12/2019 10:06:15 10/16/19 20 10/16/2019 BMP, serum or plasm a sodium 140 mmol/ L 136 to 145 Not Available [facility] (Lab) [address] [place] [address], [address], 10/16/2019 17:03:05 10/16/19 20 10/16/2019 BMP, serum or plasm a potassium 4.4 mmol/ L 3.5 to 5.1 Not Available [facility] (Lab) [address] [place], [address], 10/16/2019 17:03:05 10/16/19 20 10/16/2019 BMP, serum or plasm a chloride 102 mmol/ L 98 to 107 Not Available [facility] (Lab) [address] [place], [address], 10/16/2019 17:03:05 10/16/19 20 10/16/2019 BMP, serum or plasm a carbon dioxide 24 mmol/ L 21 to 32 Not Available [facility] (Lab) [address] [place], [address], 10/16/2019 17:03:05 10/16/19 20 10/16/2019 BMP, serum or plasm a BUN 21 mg/dL 7 to 18 high Not Available [facility] (Lab) [address] [place], [address], 10/16/2019 17:03:05 10/16/19 20 10/16/2019 BMP, serum or plasm a creatinine 1.18 mg/dL 0.55 to 1.02 high Not Available [facility] (Lab) [address] [place], [address], 10/16/2019 17:03:05 10/16/19 20 10/16/2019 BMP, serum or plasm a glucose, random 252 mg/dL 74 to 106 high Not Available [facility] (Lab) [address] [place], [address], 10/16/2019 17:03:05 10/16/19 20 10/16/2019 BMP, serum or plasm a calcium 9.5 mg/dL 8.5 to 10.1 Not Available [facility] (Lab) [address] [place], [address], 10/16/2019 17:03:05 10/16/19 20 10/16/2019 BMP, serum or plasm a anion gap 14.0 mmol/ L 5 to 15 Not Available [facility] (Lab) [address] [place], [address], 10/16/2019 17:03:05 10/16/19 20 10/16/2019 BMP, serum or plasm a glomerular filtration rate 45 mL/mi n/1.7 3_m2 GFR Calcu lated from serum IDMS stand ardiz ed creat inine value Chron ic Kidne y Disea se less than 60 mL/mi n/1.7 3 m2 Kidne y Failu re less than 15 mL/mi n/1.7 3 m2 The eGFR has not been valid ated in [facility] young er than 18 years or older than 70 years of age. Not Available [facility] (Lab) [address] [place], [address], 10/16/2019 17:03:05 10/16/19 20 10/16/2019 TSH, ultra [...] patie nt sampl es. [facility] from [facility] takin g bioti n suppl ement s or recei ving high- dose bioti n thera py shoul d be inter prete d with cauti on due to possi ble inter feren ce with this test. Not Available [facility] (Lab) [address] [place], [address], 10/16/2019 17:03:11 12/07/19 20 12/07/2019 HbA1c (hemo globi n A1c), blood HbA1c 10.5 Not Available [facility] [address] [place], [address], 12/07/2019 15:33:50 09/23/19 20 09/23/2019 serinai ng/florence campos tic resul t No observ ation record ed. elounder Not Available 2019 09:33:48 Result Notes None recorded. Problems Name Problem SNOMED Code Status Onset Date Resolution Date Notes Provider Name and Address Organization Details Recorded Time Anxiety 97369922 Active 2019 [facility] 0 13:04:43 Depressive disorder 00129662 Active 2019 [facility] 0 13:04:49 Dyslipidemia 101219787 Active 2019 [facility] 0 13:04:55 Gastroesophag eal reflux disease 572884172 Active 2019 [facility] 0 13:05:01 Essential hypertension 64797786 Active 2019 [facility] 0 13:05:08 Left bundle branch block 01932266 Active 2019 [facility] 0 13:05:18 Harmful pattern of use of opioid 4422666 Active 2019 [facility] 0 13:05:26 Acute non-ST segment elevation myocardial infarction 462849828 Active 2019 [facility] 0 13:05:38 Chronic obstructive pulmonary disease 05965778 Active 2019 [facility] 0 13:05:44 Monitoring of pacemaker 94865383 Active 2019 [facility] 0 13:05:52 Congestive heart failure 35724011 Active 2019 Salbador Tinajero MD [address] [place], [address], [facility] 0 16:05:08 Coronary arteriosclero sis 45898339 Active 2019 [facility] 0 13:07:39 Pulmonary embolism 72746657 Active 2019 [facility] 0 13:07:49 Kidney disease 72371390 Active 2019 [facility] 0 13:08:00 Type 2 diabetes mellitus 24406158 Active 2019 [facility] 0 13:11:48 Calcification of breast 871194458 Active 2019 Needs a repeat MAMMO in December 2019 Salbador Tinajero MD [address] [place], [address], [facility] 0 16:34:02 Problem Notes None recorded. Procedures Surgical History Date Name Laterality Status Provider Name and Address Organization Details Recorded Time Hernia Repair completed [facility] 08/23/2019 13:08:59 Tubal Ligation completed [facility] 08/23/2019 13:09:08 Appendectomy completed [facility] 08/23/2019 13:09:15 Gallbladder Surgery completed [facility] 08/23/2019 13:09:22 Pacemaker completed [facility] 08/23/2019 13:09:32 Imaging Results None recorded. Procedure Notes None recorded. Medical Equipment None Reported. Allergies Allergen ID Allergen Name Allergen Category Reaction Reaction Severity Criticality Documentation Date Start Date Code Code System Note Provider Name and Address Organization Details Recorded Time 31280 Bactrim medicatio n Not available Not available Not available 08/23/2019 96278 9 RxNorm [facility] 0 11:49:48 49811 Medicinal product containin g cephalosp arturo and acting as antibacte rial agent (product) medicatio n Not available Not available Not available 08/23/2019 80148 9009 SNOMED [facility] 0 11:49:57 98977 naproxen medicatio n Not available Not available Not available 08/23/2019 7258 RxNorm [facility] 0 11:50:04 74303 Substance with sulfonami de structure and antibacte rial mechanism of action (substanc e) medicatio n Not available Not available Not available 08/23/2019 24617 8003 SNOMED [facility] 0 11:50:21 Medications Name Sig Start [...] Not Available No t Available ReliOn Pen [place] 32 gauge x active Not Available Not Available Not Available [...] Not Available Not Available Not Avai lable BD Ultra-Fine Micro Pen Needle 32 gauge [...] /min 97 % 97 % 37 kg/m2 21125.8 1 g 124 mm[Hg] 82 mm[Hg] [facility] 0 15:26:42 Date Recorded Body height Heart rate Oxygen saturation Oxygen saturation in Arterial blood by Pulse oximetry Systolic blood pressure Diastolic blood pressure Provider Name and Address Organization Details Last Updated DateTime 0 160.02 cm 77 /min 97 % 97 % 124 mm[Hg] 74 mm[Hg] [facility] 0 15:04:28 Date Recorded Body height Provider Name an d Address Organization Details Last Updated DateTime 12/07/2019 160.02 cm [facility] 12/07/2019 15:33:29 Date Recorded Body height Provider Name an d Address Organization Details Last Updated DateTime 12/18/2019 160.02 cm [facility] 12/18/2019 09:25:05 Date Recorded Body height Provider Name an d Address Organization Details Last Updated DateTime 12/19/2019 160.02 cm [facility] 12/19/2019 15:32:06 Social History Question Answer Notes LastModified by Organizat ion Details LastModified Time Tobacco Smoking Status Never Smoker [facility] 13:09:59 Do You Have An Advance Directive? No Information not available 08/23/2019 What Is Your Level Of Caffeine Consumption? Occasional Soda Information not available 09/10/2019 How Much Tobacco Do You Chew? None Information not available 08/23/2019 What Type Of Diet Are You Following? DIABETIC Information not available 08/23/2019 Which Illicit Or Recreational Drugs Have You Used? None Information not available 08/23/2019 Hard Of Hearing Or Deaf In One Or Both Ears? No Information not available 09/10/2019 Legally Blind In One Or Both Eyes? No Information no t available 09/10/2019 Live Alone Or With Others? With Others Information not available 09/10/2019 How Many Children Do You Have? 3 Information not available 09/10/2019 Seat Belts Used Routinely Yes Information not available 08/23/2019 Smoke Alarm In Home Yes Information not available 08/23/2019 How Much Tobacco Do You Smoke? No Information not available 08/23/2019 Sex: Unknown Functional Status Question Answer Note LastModified by Organizat ion Details LastModified Time What is your level of alcohol consumption? Occasional rare occasion a glass of wine Information not available 09/10/2019 Do you or have you ever used smokeless tobacco? Never used smokeless tobacco Information not available 08/23/2019 Are you currently employed? No Information not available 09/10/2019 Are you able to walk? YESWOREST Information not available 09/10/2019 Are you able to care for yourself? Yes Information not available 09/10/2019 What is your occupation? retired Information not available 09/10/2019 Do you or have you ever used e-cigarettes or vape? Never used electronic cigarettes Information not available 08/23/2019 What is your exercise level? Occasional Some [...] Organization Details Recorded Time Tdap 0 completed [facility] 08/23/2019 13:02:39 Pneumococcal conjugate PCV [address] [facility] 08/23/2019 13:03:06 pneumococcal polysaccharide PPV23 2 completed [facility] 08/23/2019 13:03:27 pneumococcal, unspecified formulation 6 completed [facility] 08/23/2019 13:03:44 zoster, unspecified formulation 6 completed [facility] 08/23/2019 13:03:58 Past Encounters Encounter ID Performer Location Encounter Start Date Encounter Closed Date Diagnosis/Indication Diagnosis SNOMED-CT Code Diagnosis ICD10 Code Diagnosis Note [id number] Salbador Tinajero MD [facility] [address] [place] [id number] 09/10/2019 14:55:38 09/10/2019 16:15:08 Coronary arteriosclerosis 24235259 I25.10 Has hx of coronary artery disease, reports having 4 stents placed, most recent was 5 years ago. treated at [facility]. Per note review and patient report, pacemaker was placed 2 years ago. Denies active chest pain at this time. Type 2 gilda betes mellitus 42148787 E11.42 Hemoglobin A1c in December 2018 was 11. Checking her blood sugars frequently , noted blood sugars to be in the 300s-400. -Reports history of neuropathy on the lower extremitie s, denies calluses, wounds -Last dilated eye exam 2 years ago Anxiety 54944442 F41.9 Patient reporting fair control of anxiety but still has episodes of insomnia. Essential hypertension [id number] I10 BP has been well controlled . Denies chest pain, shortness of breath, dyspnea on exertion, blurred vision. Dyslipidemia 506880238 E 78.5 On atorvastat in 40 mg daily. Gastroesop hageal reflux disease 106670782 K21.9 On omeprazole , reports good symptomati c control on the medication . Depressive disorder [id number] F32.9 Has history of depression . Says symptoms are well controlled . Denies suicidal ideations or passive thoughts of . Does not follow with counseling and does not wish to establish care with counseling . Iron deficiency 42223656 E61.1 Reports a history of iron deficiency anemia, currently on iron supplement ation. Viral screening [id number] 4 Z11.59 [id number] Salbador Tinajero MD [facility] [address] [place] [phone] 10/08/2019 14:47:01 10/08/2019 15:35:33 Type 2 diabetes mellitus 53497747 E11.42 Hemoglobin A1c in December 2018 was [...] discharge summary is not available. Recurrent falls [id number] 2 R29.6 Patient reports 2 episodes of mechanical falls when she slipped on the ice. Congestive heart failure 50596393 I50.9 Patient was started on losartan and metoprolol succinate at discharge. Amina lim, I do not have discharge summary available for review. She has an appointmen t scheduled with cardiology in October. Fatigue 48146795 R53.83 She reporting fatigue and malaise. She says that 2 sisters have diagnosis of hypothyroi dism. Coronary arteriosclerosis 66422345 I25.10 On her last visit, she reported hx of coronary artery disease, reports having 4 stents placed, most recent was 5 years ago, treated in [facility]. Per note review and patient report, pacemaker was placed 2 years ago. She presented to the emergency room on 09/24 for acute onset of chest pain and was transferre d to [facility] in [place] and had cardiac catheteriz ation. According to the patient, no new stents were placed. She had medication adjusted at discharge and was placed on ARB. She used to be on bisoprolol and was switched to metoprolol succinate. no active chest pain at this time. She was instructed to call 911/go to ED if develops acute chest pain. [id number] Jose Combs MD [facility] [address] [place] [address] [phone] 12/07/2019 15:32:37 12/07/2019 16:17:08 Type 2 diabetes mellitus 98755638 E11.69 [id number] Sara Del Castillo NP [facility] [address] [place] [address] [phone] 12/18/2019 08:14:27 12/18/2019 10:11:48 Vaginitis 27904945 N76.0 Advised pt to call if symptoms do not resolve with treatment. [id number] Salbador Tinajero MD [facility] [address] [place] [address] [phone] 12/19/2019 08:14:26 12/20/2019 08:00:46 Type 2 diabetes mellitus 95777935 E11.42 Hemoglobin A1c 10.1%. Will increase dose of Lantus, continue with NovoLog at the same dose as she is having controlled blood sugars after meals. Instructed patient about red flags for hypoglycem ic episodes and she is aware of how to manage those. Call clinic if any side effects or any other issues. Plan to recheck hemoglobin A1c in 3 months. Pain of hip region [id number] 002 M25.559 6 weeks of mild to moderate left hip pain. No skin discolorat ion. Instructed about use of Tylenol, cold and warm compresses . Health Concerns Section Related Observation LastModified by Organization Detai ls LastModified Time None Recorded Concern Status LastModified by Organization Details LastModified Time None Recorded Advance Directives Directive N: Payers Insurance Date Sequence Insurance Name Policy Number Policy Lambert Covered Member ID Lambert Member ID Guarantor Name 02/08/2020 1 [employer] (MEDICARE REPLACEMENT/A DVANTAGE - HMO) [id number] Deanna Chacon [id number] Deanna Chacon Notes Date Note Type Note Provider Name and Address Organization Details Recorded Time 09/10/2019 text/html 68-year-old fema le with past medical history of type 2 diabetes, hypertension, COPD not on oxygen, heart failure, history of coronary artery disease, [place] x2 s/p stent placement with pacemaker placed [...] She has been seen by cardiology in [place], denies seeing any advanced practice professional since moving to [place]. Hypertension? p jenny reports good control of hypertension on current medication. She denies chest pain, shortness of breath, dyspnea on exertion, orthopnea, PND. COPD? n ot on oxygen. She is on inhalers, denies shortness of breath, cough or wheezing. Denies any recent episodes of exacerbation. GERD? s ays and omeprazole provides appropriate control of symptoms. Salbador Tinajero MD [address] [place] [address], [phone], [facility] 09/10/2019 16:34:18 10/08/2019 text/html This is a [...] of chest pain. She was transferred to [facility] in [place] and had cardiac cath done on 09/24/19. Unfortunately, the discharge summary is not available and information is gathered from [facility] admission visit. 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 She has an appointment scheduled with cardiology on November 08 at [facility]. She also reports that she was started [...] exertion. She has ongoing lower extremity edema. [facility] is visiting twice weekly for diabetes education [...] pain or abdominal pain. Salbador Tinajero MD [address] [place] [address], [phone], [facility] 10/08/2019 16:12:10 12/18/2019 text/html This patient was identified as meeting criteria for a televisit rather than an in person visit due to public health concerns around COVID-19. A complete assessment and plan is detailed in the note, all of which were conducted remotely using Telephone technology. Patient identity was verbally confirmed by [...] discussed. Patient/guardian was informed how to access [id number] care in the event of an emergency. Provider was located in an Ambulatory consult room/in a remote secure location during the visit. If this is a new patient visit, all available records and medical history were reviewed by the provider. Visit length was 7# 10 15 20 25 minutes and counseling was done on the [...] yeast infection was 4 months ago. Sara eDl Castillo NP [address] [place] [address], [phone], [facility] 12/18/2019 09:46:05 12/19/2019 text/html This patient was identified as meeting criteria for a televisit rather than an in person visit due to public health concerns around COVID-19. A complete assessment and plan is detailed in the note, all of which were conducted remotely using Telephone technology. Patient identity was verbally confirmed by [...] discussed. Patient was informed how to access [id number] care in the event of an emergency. Provider was located in a remote secure location during the visit. Visit length was 15 minutes and counseling was done on the [...] any skin changes, edema. Salbador Tinajero MD [address] [place] [address], [phone], [facility] 12/19/2019 18:08:01 OBGyn Episode No OBEpisode recorded.
== END 2025-01-22 16:25 | disposition home or self-care (01) ==
LOC: HO.ENCR 15:36
PROVIDERS: PCP Nurse Practitioner Family; Visit Provider Nurse Practitioner Adult Health
DX: E11.65 Type 2 diabetes mellitus with hyperglycemia (principal)

== ENCOUNTER → 2025-01-22 15:35 | Outpatient (BNVA) | payer OTHER, SELFPAY | PROVIDERS: PCP Nurse Practitioner Family; Visit Provider Nurse Practitioner Adult Health | DX: E11.65 Type 2 diabetes mellitus with hyperglycemia (principal); Z79.4 Long term (current) use of insulin; Z79.84 Long term (current) use of oral hypoglycemic drugs | CPT/HCPCS: 82947; 83036; 99212 ==

== ENCOUNTER 2025-01-29 14:51 | Outpatient (AMB) | payer OTHER, SELFPAY ==
--- NOTE | 2025-01-29 15:40 | MHC.AMDMED ---
Intake Intake Visit Reasons: DM Supervisor Press Room Required: No Accompanied by: Son Allergies Cephalosporins [CEPHALOSPORINS] Allergy (Intermediate, Verified 01/22/25 15:43) RASH oxycodone [From Tylox] Allergy (Intermediate, Verified 01/22/25 15:43) RASH Sulfa (Sulfonamide Antibiotics) [SULFA (SULFONAMIDE ANTIBIOTICS)] Allergy (Intermediate, Verified 01/22/25 15:43) RASH lisinopril Adverse Reaction (Severe, Verified 01/22/25 15:43) contraindication sulfamethoxazole [From Bactrim] Adverse Reaction (Severe, Verified 01/22/25 15:43) Rash trimethoprim [From Bactrim] Adverse Reaction (Severe, Verified 01/22/25 15:43) Rash naproxen [NAPROXEN] Adverse Reaction (Intermediate, Verified 01/22/25 15:43) contraindication HPI Comprehensive Diabetes Asmnt Most Recent Diabetes Results: Microalb/Creat Ratio 15.6 ug/mg cr (<30) 08/16/24 Cholesterol 209 mg/dL (<200) H 08/16/24 HDL Cholesterol 53 mg/dL (>40) 08/16/24 Triglycerides 283 mg/dL (<150) H 08/16/24 Creatinine 1.38 mg/dL (0.5-1.4) 08/16/24 Blood Urea Nitrogen 23 mg/dL (9-16) H 08/16/24 Sodium 140 mmol/L (135-145) 08/16/24 Potassium 4.6 mmol/L (3.3-5.1) 08/16/24 Chloride 104 mmol/L (96-108) 08/16/24 Carbon Dioxide 28 mmol/L (22-29) 08/16/24 Calcium 10.1 mg/dL (8.4-10.2) 08/16/24 AST 50 U/L (5-31) H 08/16/24 ALT 41 U/L (0-31) H 08/16/24 Total Protein 8.1 g/dL (6.5-8.0) H 08/16/24 Albumin 4.4 g/dL (3.5-5.0) 08/16/24 [facility] History Diabetic neuropathy Anemia Type 2 diabetes mellitus with unspecified complications Atherosclerotic cardiovascular disease Cardiac resynchronization therapy defibrillator (PACS SPECIALIST-D) in place Surgical History History of colonoscopy H/O endoscopy History of implantable cardioverter-defibrillator (ICD) placement (~02/09/17) History of cardiac catheterization (~08/2015) History of umbilical hernia repair History of appendectomy History of cholecystectomy History of tubal ligation Family History Father Myocardial infarction Mother Uterine cancer Lung cancer Maternal Aunt Uterine cancer Mouth cancer Social History Housing: House Patient Tobacco Use Status: Never used Tobacco e-Cigarette/Vaping Use: Never Used Second Hand Smoke Exposure: No service: No Current occupational status: retired Current occupational exposures/hazards: No Cognitive needs: Yes Hearing needs: No Vision needs: Yes Assessment & Plan Assessment & Plan (1) Diabetes type 2, uncontrolled: Code(s): E11.65 - Type 2 diabetes mellitus with hyperglycemia Plan: Patient here to set up Danica 3 +sensor, did not receive reader from the pharmacy Tried to download Danica 3 joshua on patient's cell phone, cell phone not compatible with joshua Called pharmacy, was told that reader needs PA. sent message for PA to be submitted for Danica 3 reader Patient will call to schedule appointment once she receives reader Coding Level of Care Code Est Pt Level 1 (38938) Diagnoses Diabetes type 2, uncontrolled E11.65
--- OUTSIDE RECORDS SUMMARY | 2025-01-29 17:56 | XMS_ITS | Data Portability ---
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 Plan of Treatment Reminders Order Date Submit Date Provider Last Modified By Organization Details Last Modified Time Details Appointments None recorded. Lab HbA1c (hemoglobi n A1c), blood 2019 [facility], [address] [place], [address], 0 08:44:24 TSH, ultra-sens itive, serum 2019 020 [facility] (Lab), [address] [place] [address], [address], 0 17:03:11 BMP, serum or plasma 2019 020 [facility] (Lab), [address] [place] [address], [address], 0 17:03:05 hepatitis C virus Ab, serum 2019 020 [facility] (Lab), [address] [place], [address], 0 07:05:33 HIV 1+2 AB + HIV 1 p24 Ag, qualitativ e immunoassa y, serum 2019 020 [facility] (Lab), [address] [place], [address], 0 10:06:15 hepatitis B virus surface Ab, quantitati ve immunoassa y, serum 2019 020 [facility] (Lab), [address] [place], [address], 0 07:05:36 CBC w/ auto diff 2019 020 [facility] (Lab), [address] [place], [address], 0 10:00:00 iron + total iron-yoko ng capacity (TIBC), serum 2019 020 [facility] (Lab), [address] [place], [address], 0 11:00:15 microalbum in/creatin ine, mass ratio, urine 2019 020 [facility] (Lab), [address] [place], [address], 0 10:11:23 glycohemog lobin, total, blood 2019 020 [facility] (Lab), [address] [place], [address], 0 10:11:18 lipid panel w/ direct LDL, serum 2019 020 [facility] (Lab), [address] [place], [address], 0 10:12:10 CMP, serum or plasma 2019 020 [facility] (Lab), [address] [place], [address], 0 10:12:20 Referral physical therapist referral [address] [facility], [address] [place], [address], 0 08:59:08 diabetic ophthalmol ogy referral 2019 [email or web address] 18 Not available 0 07:24:[address] referral 2019 [facility] 18 Not available 0 07:24:51 Procedures None recorded. Surgeries None recorded. Imaging None recorded. Medication Orders Tylenol Extra Strength 500 mg tablet 2019 [facility]FACE [facility], [address] [place], [address], 0 15:47:19 Lantus Solostar U-100 Insulin 100 unit/mL (3 mL) subcutaneo us pen 2019 INTERFACE [facility], [address] [place], [address], 0 15:47:21 Diflucan 150 mg tablet 2019 020 [facility], [address] [place], [address], 0 09:37:14 Lantus Solostar U-100 Insulin 100 unit/mL (3 mL) subcutaneo us pen 2019 020 [facility], [address] [place], [address], 0 15:58:04 Novolog FlexPen U-100 Insulin aspart 100 unit/mL (3 mL) subcutaneo us 2019 020 [facility], [address] [place], [address], 0 15:58:02 Novolog FlexPen U-100 Insulin aspart 100 unit/mL (3 mL) subcutaneo us 2019 020 [facility], [address] [place], [address], 0 16:12:47 nitroglyce rin 0.4 mg sublingual tablet 2019 020 [facility], [address] [place], [address], 0 16:12:50 Patient TargetsNo targets recorded. Patient InstructionsNo instructions recorded. Reason for Referral Guidance Services Coordinator Referral for Co ronary arteriosclerosis Referring Physician: [...] x10^3 /uL 4.0 to 10.0 Not Available [facility] (Lab) [address] [place], [address], 09/11/2019 10:00:00 09/11/19 20 09/11/2019 CBC w/ auto diff red blood cells 4.39 x10^6 /uL 3.93 to 5.22 Not Available [facility] (Lab) [address] [place], [address], 09/11/2019 10:00:00 09/11/1909/11/2019 CBC w/ auto diff hemoglobin 13.8 g/dL 11.2 to 15.7 Not Available [facility] (Lab) [address] [place], [address], 09/11/2019 10:00:00 09/11/19 20 09/11/2019 CBC w/ auto diff hematocrit 41.7 % 34 to 45 Not Available [facility] (Lab) [address] [place], [address], 09/11/2019 10:00:00 09/11/19 20 09/11/2019 CBC w/ auto diff MCV 95.0 fL 79 to 94 high Not Available [facility] (Lab) [address] [place], [address], 09/11/2019 10:00:00 09/11/19 20 09/11/2019 CBC w/ auto diff MCH 31.4 pg 26.6 to 32.2 Not Available [facility] (Lab) [address] [place], [address], 09/11/2019 10:00:00 09/11/19 20 09/11/2019 CBC w/ auto diff MCHC 33.1 g/dL 32 to 36.5 Not Available [facility] (Lab) [address] [place], [address], 09/11/2019 10:00:00 09/11/19 20 09/11/2019 CBC w/ auto diff RDW-SD 43.0 fL 35.0 to 46.0 Not Available [facility] (Lab) [address] [place], [address], 09/11/2019 10:00:00 09/11/19 20 09/11/2019 CBC w/ auto diff RDW-CV 12.7 % 10.9 to 14.4 Not Available [facility] (Lab) [address] [place], [address], 09/11/2019 10:00:00 09/11/19 20 09/11/2019 CBC w/ auto diff platelet 157 x10^3 /uL 145 to 370 Not Available [facility] (Lab) [address] [place], [address], 09/11/2019 10:00:00 09/11/19 20 09/11/2019 CBC w/ auto diff MPV 11.2 fL 9.0 to 12.0 Not Available [facility] (Lab) [address] [place], [address], 09/11/2019 10:00:00 09/11/19 20 09/11/2019 CBC w/ auto diff manual differential NO normal Not Available [facility] (Lab) [address] [place], [address], 09/11/2019 10:00:00 09/11/19 20 09/11/2019 CBC w/ auto diff platelet estimate NOT INDICA PETER normal Not Available [facility] (Lab) [address] [place], [address], 09/11/2019 10:00:00 09/11/19 20 09/11/2019 CBC w/ auto diff RBC morphology NOT INDICA PETER normal Not Available [facility] (Lab) [address] [place], [address], 09/11/2019 10:00:00 09/11/19 20 09/11/2019 CBC w/ auto diff neutrophil % 63.7 % Not Available [facility] (Lab) [address] [place], [address], 09/11/2019 10:00:00 09/11/19 20 09/11/2019 CBC w/ auto diff lymphocyte % 24.9 % Not Available [facility] (Lab) [address] [place], [address], 09/11/2019 10:00:00 09/11/19 20 09/11/2019 CBC w/ auto diff monocyte % 6.7 % Not Available [facility] (Lab) [address] [place], [address], 09/11/2019 10:00:00 09/11/19 20 09/11/2019 CBC w/ auto diff eosinophi % 4.1 % Not Available [facility] (Lab) [address] [place], [address], 09/11/2019 10:00:00 09/11/19 20 09/11/2019 CBC w/ auto diff basophil % 0.6 % Not Available [facility] (Lab) [address] [place], [address], 09/11/2019 10:00:00 09/11/19 20 09/11/2019 CBC w/ auto diff neutrophil absolute 5.5 x10^3 /uL 1.5 to 6.3 Not Available [facility] (Lab) [address] [place], [address], 09/11/2019 10:00:00 09/11/19 20 09/11/2019 CBC w/ auto diff lymphocyte absolute 2.2 x10^3 /uL 1 to 3.6 Not Available [facility] (Lab) [address] [place], [address], 09/11/2019 10:00:00 09/11/19 20 09/11/2019 CBC w/ auto diff monocyte absolute 0.6 x10^3 /uL 0.2 to 1 Not Available [facility] (Lab) [address] [place], [address], 09/11/2019 10:00:00 09/11/19 20 09/11/2019 CBC w/ auto diff eosinophil absolute 0.4 x10^3 /uL 0 to 0.5 Not Available [facility] (Lab) [address] [place], [address], 09/11/2019 10:00:00 09/11/19 20 09/11/2019 CBC w/ auto diff basophil absolute 0.1 x10^3 /uL 0 to 0.2 Not Available [facility] (Lab) [address] [place], [address], 09/11/2019 10:00:00 09/11/19 20 09/11/2019 glyco hemog lobin , total , blood glycosolated hemoglobin A1C 11.9 % 4.5 to 6.2 high Not Available [facility] (Lab) [address] [place], [address], 09/11/2019 10:11:18 09/11/19 20 09/11/2019 micro album in/cr eatin ine, mass ratio , urine microalbumin , random urine 0.21 mg/dL 0.13 to 2.00 Not Available [facility] (Lab) [address] [place], [address], 09/11/2019 10:11:22 09/11/19 20 09/11/2019 micro album in/cr eatin ine, mass ratio , urine creatinine urine 40.44 mg/dL Not Available [facility] (Lab) [address] [place], [address], 09/11/2019 10:11:22 09/11/19 20 09/11/2019 micro album [...] than 300 mg/gm Creat . Not Available [facility] (Lab) [address] [place], [address], 09/11/2019 10:11:22 09/11/19 20 09/11/2019 lipid panel w/ direc t LDL, serum cholesterol 177 mg/dL 26 to 192 Not Available [facility] (Lab) [address] [place], [address], 09/11/2019 10:12:10 09/11/19 20 09/11/2019 lipid panel w/ direc t LDL, serum triglyceride s 175 mg/dL 0 to 200 Not Available [facility] (Lab) [address] [place], [address], 09/11/2019 10:12:10 09/11/19 20 09/11/2019 lipid panel w/ direc t LDL, serum LDL calculated vrh 90 mg/dL 0 to 100 Not Available [facility] (Lab) [address] [place], [address], 09/11/2019 10:12:10 09/11/19 20 09/11/2019 lipid panel w/ direc t LDL, serum HDL cholesterol 52 mg/dL 35 to 85 Not Available [facility] (Lab) [address] [place], [address], 09/11/2019 10:12:10 09/11/19 20 09/11/2019 lipid panel [...] x a direc t LDL. Not Available [facility] (Lab) [address] [place], [address], 09/11/2019 10:12:10 09/11/19 20 09/11/2019 CMP, serum or plasm a sodium 137 mmol/ L 136 to 145 Not Available [facility] (Lab) [address] [place], [address], 09/11/2019 10:12:20 09/11/19 20 09/11/2019 CMP, serum or plasm a potassium 4.1 mmol/ L 3.5 to 5.1 Not Available [facility] (Lab) [address] [place], [address], 09/11/2019 10:12:20 09/11/19 20 09/11/2019 CMP, serum or plasm a chloride 102 mmol/ L 98 to 107 Not Available [facility] (Lab) [address] [place], [address], 09/11/2019 10:12:20 09/11/19 20 09/11/2019 CMP, serum or plasm a carbon dioxide 25 mmol/ L 21 to 32 Not Available [facility] (Lab) [address] [place], [address], 09/11/2019 10:12:20 09/11/19 20 09/11/2019 CMP, serum or plasm a BUN 19 mg/dL 7 to 18 high Not Available [facility] (Lab) [address] [place], [address], 09/11/2019 10:12:20 09/11/19 20 09/11/2019 CMP, serum or plasm a creatinine 1.13 mg/dL 0.55 to 1.02 high Not Available [facility] (Lab) [address] [place], [address], 09/11/2019 10:12:20 09/11/19 20 09/11/2019 CMP, serum or plasm a glucose, random 363 mg/dL 74 to 106 high Not Available [facility] (Lab) [address] [place], [address], 09/11/2019 10:12:20 09/11/19 20 09/11/2019 CMP, serum or plasm a calcium 9.0 mg/dL 8.5 to 10.1 Not Available [facility] (Lab) [address] [place], [address], 09/11/2019 10:12:20 09/11/19 20 09/11/2019 CMP, serum or plasm a anion gap 10.0 mmol/ L 5 to 15 Not Available [facility] (Lab) [address] [place], [address], 09/11/2019 10:12:20 09/11/19 20 09/11/2019 CMP, serum or plasm a glomerular filtration rate 48 mL/mi n/1.7 3_m2 Not Available [facility] (Lab) [address] [place], [address], 09/11/2019 10:12:20 09/11/19 20 09/11/2019 CMP, serum or plasm a total bilirubin 0.4 mg/dL 0.2 to 1.0 Not Available [facility] (Lab) [address] [place], [address], 09/11/2019 10:12:20 09/11/19 20 09/11/2019 CMP, serum or plasm a ALT(SGPT) 44 U/L 12 to 78 Not Available [facility] (Lab) [address] [place], [address], 09/11/2019 10:12:20 09/11/19 20 09/11/2019 CMP, serum or plasm a AST (SGOT) 30 U/L 15 to 37 Not Available [facility] (Lab) [address] [place], [address], 09/11/2019 10:12:20 09/11/19 20 09/11/2019 CMP, serum or plasm a alkaline phosphatase 112 U/L 46 to 116 Not Available [facility] (Lab) [address] [place], [address], 09/11/2019 10:12:20 09/11/19 20 09/11/2019 CMP, serum or plasm a albumin 3.1 g/dL 3.4 to 5.0 low Not Available [facility] (Lab) [address] [place], [address], 09/11/2019 10:12:20 09/11/19 20 09/11/2019 CMP, serum or plasm a total protein 6.8 g/dL 6.4 to 8.3 Not Available [facility] (Lab) [address] [place], [address], 09/11/2019 10:12:20 09/11/19 20 09/11/2019 CMP, serum [...] than 70 years of age. Not Available [facility] (Lab) [address] [place], [address], 09/11/2019 10:12:20 09/11/19 20 09/11/2019 iron + total iron- yoko ng capac ity (TIBC ), serum iron 57 ug/dL 50 to 170 Not Available [facility] (Lab) [address] [place], [address], 09/11/2019 11:00:14 09/11/19 20 09/11/2019 iron + total iron- yoko ng capac ity (TIBC ), serum total iron binding capacity 248 ug/dL 250 to 450 low Not Available [facility] (Lab) [address] [place], [address], 09/11/2019 11:00:14 09/11/1909/11/2019 iron + total iron- yoko ng capac ity (TIBC ), serum % iron saturation 23 % 15 to 50 Iron Satur ation value s below 15% indic ate iron defic ient eryth ropoi esis. Not Available [facility] (Lab) [address] [place], [address], 09/11/2019 11:00:14 09/11/19 20 09/12/2019 hepat itis [...] [address], [place] [address] Lab Direc tor: Lelia Duncan MD, Phone : [phone] Not Available [facility] (Lab) [address] [place] [address], [address], 09/12/2019 07:05:33 09/11/19 20 09/12/2019 hepat itis [...] an [address], [place] [address] Lab Direc tor: Lelia Duncan MD, Phone : [phone] Not Available [facility] (Lab) [address] [place] [address], [address], 09/12/2019 07:05:36 09/11/19 20 09/12/2019 HIV 1+2 AB + HIV 1 p24 Ag, quali tativ e immun oassa y, serum hivreflx Non Reacti ve non reacti ve normal Perfo rmed at: JUANITA Loyd rp [place] [address], [place] [address] Lab Direc tor: Lelia Duncan MD, Phone : [phone] Not Available [facility] (Lab) [address] [place] [address], [address], 09/12/2019 10:06:15 10/16/19 20 10/16/2019 BMP, serum or plasm a sodium 140 mmol/ L 136 to 145 Not Available [facility] (Lab) [address] [place] [address], [address], 10/16/2019 17:03:05 10/16/19 20 10/16/2019 BMP, serum or plasm a potassium 4.4 mmol/ L 3.5 to 5.1 Not Available [facility] (Lab) [address] [place], [address], 10/16/2019 17:03:05 10/16/19 20 10/16/2019 BMP, serum or plasm a chloride 102 mmol/ L 98 to 107 Not Available [facility] (Lab) [address] [place], [address], 10/16/2019 17:03:05 10/16/19 20 10/16/2019 BMP, serum or plasm a carbon dioxide 24 mmol/ L 21 to 32 Not Available [facility] (Lab) [address] [place], [address], 10/16/2019 17:03:05 10/16/19 20 10/16/2019 BMP, serum or plasm a BUN 21 mg/dL 7 to 18 high Not Available [facility] (Lab) [address] [place], [address], 10/16/2019 17:03:05 10/16/19 20 10/16/2019 BMP, serum or plasm a creatinine 1.18 mg/dL 0.55 to 1.02 high Not Available [facility] (Lab) [address] [place], [address], 10/16/2019 17:03:05 10/16/19 20 10/16/2019 BMP, serum or plasm a glucose, random 252 mg/dL 74 to 106 high Not Available [facility] (Lab) [address] [place], [address], 10/16/2019 17:03:05 10/16/19 20 10/16/2019 BMP, serum or plasm a calcium 9.5 mg/dL 8.5 to 10.1 Not Available [facility] (Lab) [address] [place], [address], 10/16/2019 17:03:05 10/16/19 20 10/16/2019 BMP, serum or plasm a anion gap 14.0 mmol/ L 5 to 15 Not Available [facility] (Lab) [address] [place], [address], 10/16/2019 17:03:05 10/16/19 20 10/16/2019 BMP, serum or plasm a glomerular filtration rate 45 mL/mi n/1.7 3_m2 GFR Calcu lated from serum IDMS stand ardiz ed creat inine value Chron ic Kidne y Disea se less than 60 mL/mi n/1.7 3 m2 Kidne y Failu re less than 15 mL/mi n/1.7 3 m2 The eGFR has not been valid ated in [facility] young er than 18 years or older than 70 years of age. Not Available [facility] (Lab) [address] [place], [address], 10/16/2019 17:03:05 10/16/19 20 10/16/2019 TSH, ultra [...] patie nt sampl es. [facility] tak[facility] bioti n suppl ement s or recei ving high- dose bioti n thera py shoul d be inter prete d with cauti on due to possi ble inter feren ce with this test. Not Available [facility] (Lab) [address] [place], [address], 10/16/2019 17:03:11 12/07/19 20 12/07/2019 HbA1c (hemo globi n A1c), blood HbA1c 10.5 Not Available [facility] [address] [place], [address], 12/07/2019 15:33:50 09/23/19 20 09/23/2019 serinai ng/florence campos tic resul t No observ ation record ed. elounder Not Available 2019 09:33:48 Result Notes None recorded. Problems Name Problem SNOMED Code Status Onset Date Resolution Date Notes Provider Name and Address Organization Details Recorded Time Anxiety 32835137 Active 2019 [facility] 0 13:04:43 Depressive disorder 37743391 Active 2019 [facility] 0 13:04:49 Dyslipidemia 454895329 Active 2019 [facility] 0 13:04:55 Gastroesophag eal reflux disease 869012003 Active 2019 [facility] 0 13:05:01 Essential hypertension 88870360 Active 2019 [facility] 0 13:05:08 Left bundle branch block 08178223 Active 2019 [facility] 0 13:05:18 Harmful pattern of use of opioid 2632601 Active 2019 [facility] 0 13:05:26 Acute non-ST segment elevation myocardial infarction 279388581 Active 2019 [facility] 0 13:05:38 Chronic obstructive pulmonary disease 84202659 Active 2019 [facility] 0 13:05:44 Monitoring of pacemaker 25240151 Active 2019 [facility] 0 13:05:52 Congestive heart failure 80004678 Active 2019 Salbador Tinajero MD [address] [place], [address], [facility] 0 16:05:08 Coronary arteriosclero sis 47362903 Active 2019 [facility] 0 13:07:39 Pulmonary embolism 14147166 Active 2019 [facility] 0 13:07:49 Kidney disease 69096903 Active 2019 [facility] 0 13:08:00 Type 2 diabetes mellitus 99772606 Active 2019 [facility] 0 13:11:48 Calcification of breast 707637736 Active 2019 Needs a repeat MAMMO in December 2019 Salbador Tinajero MD [address] [place], [address], [facility] 0 16:34:02 Problem Notes None recorded. Procedures Surgical History Date Name Laterality Status Provider Name and Address Organization Details Recorded Time Hernia Repair completed [facility] 08/23/2019 13:08:59 Tubal Ligation completed [facility] 08/23/2019 13:09:08 Appendectomy completed [facility] 08/23/2019 13:09:15 Gallbladder Surgery completed [facility] 08/23/2019 13:09:22 Pacemaker completed [facility] 08/23/2019 13:09:32 Imaging Results None recorded. Procedure Notes None recorded. Medical Equipment None Reported. Allergies Allergen ID Allergen Name Allergen Category Reaction Reaction Severity Criticality Documentation Date Start Date Code Code System Note Provider Name and Address Organization Details Recorded Time 03058 Bactrim medicatio n Not available Not available Not available 08/23/2019 29426 9 RxNorm [facility] 0 11:49:48 60722 Medicinal product containin g cephalosp arturo and acting as antibacte rial agent (product) medicatio n Not available Not available Not available 08/23/2019 67523 9009 SNOMED [facility] 0 11:49:57 36389 naproxen medicatio n Not available Not available Not available 08/23/2019 7258 RxNorm [facility] 0 11:50:04 94462 Substance with sulfonami de structure and antibacte rial mechanism of action (substanc e) medicatio n Not available Not available Not available 08/23/2019 30791 8003 SNOMED [facility] 0 11:50:21 Medications Name Sig Start [...] Not Available No t Available ReliOn Pen Cofield 32 gauge x active Not Available Not [...] /min 97 % 97 % 37 kg/m2 82496.8 1 g 124 mm[Hg] 82 mm[Hg] [facility] 0 15:26:42 Date Recorded Body height Heart rate Oxygen saturation Oxygen saturation in Arterial blood by Pulse oximetry Systolic blood pressure Diastolic blood pressure Provider Name and Address Organization Details Last Updated DateTime 0 160.02 cm 77 /min 97 % 97 % 124 mm[Hg] 74 mm[Hg] [facility] 0 15:04:28 Date Recorded Body height Provider Name an d Address Organization Details Last Updated DateTime 12/07/2019 160.02 cm [facility] 12/07/2019 15:33:29 Date Recorded Body height Provider Name an d Address Organization Details Last Updated DateTime 12/18/2019 160.02 cm Judy [facility] 12/18/2019 09:25:05 Date Recorded Body height Provider Name an d Address Organization Details Last Updated DateTime 12/19/2019 160.02 cm [facility] 12/19/2019 15:32:06 Social History Question Answer Notes LastModified by Organizat ion Details LastModified Time Tobacco Smoking Status Never Smoker [facility] 13:09:59 Do You Have [...] Recorded Time Tdap 0 completed Odalis [facility] 08/23/2019 13:02:39 Pneumococcal conjugate PCV 13 8 [facility] 08/23/2019 13:03:06 pneumococcal polysaccharide PPV23 2 completed [facility] 08/23/2019 13:03:27 pneumococcal, unspecified formulation 6 completed [facility] 08/23/2019 13:03:44 zoster, unspecified formulation 6 completed [facility] 08/23/2019 13:03:58 Past Encounters Encounter ID Performer Location Encounter Start Date Encounter Closed Date Diagnosis/Indication Diagnosis SNOMED-CT Code Diagnosis ICD10 Code Diagnosis Note [id number] Salbador Tinajero MD [facility] [address] [place] [phone] 09/10/2019 14:55:38 09/10/2019 16:15:08 Coronary arteriosclerosis 99753618 I25.10 Has hx of coronary artery disease, reports having 4 stents placed, most recent was 5 years ago. treated at [facility]. Per note review and patient report, pacemaker was placed 2 years ago. Denies active chest pain at this time. Type 2 iglda betes mellitus 39338612 E11.42 Hemoglobin A1c in December 2018 was 11. Checking her blood sugars frequently , noted blood sugars to be in the 300s-400. -Reports history of neuropathy on the lower extremitie s, denies calluses, wounds -Last dilated eye exam 2 years ago Anxiety 75758386 F41.9 Patient reporting fair control of anxiety but still has episodes of insomnia. Essential hypertension 73219952 I10 BP has been well controlled . Denies chest pain, shortness of breath, dyspnea on exertion, blurred vision. Dyslipidemia 835691530 E 78.5 On atorvastat in 40 mg daily. Gastroesop hageal reflux disease 579609379 K21.9 On omeprazole , reports good symptomati c control on the medication . Depressive disorder 0458 8428 F32.9 Has history of depression . Says symptoms are well controlled . Denies suicidal ideations or passive thoughts of . Does not follow with counseling and does not wish to establish care with counseling . Iron deficiency 65332267 E61.1 Reports a history of iron deficiency anemia, currently on iron supplement ation. Viral screening 36471109 4 Z11.59 [id number] Salbador Tinajero MD [facility] [address] [place] [id number] 10/08/2019 14:47:01 10/08/2019 15:35:33 Type 2 diabetes mellitus 21238183 E11.42 Hemoglobin A1c in December 2018 was [...] discharge summary is not available. Recurrent falls 01661125 2 R29.6 Patient reports 2 episodes of mechanical falls when she slipped on the ice. Congestive heart failure 22974074 I50.9 Patient was started on losartan and metoprolol succinate at discharge. Amina lim, I do not have discharge summary available for review. She has an appointmen t scheduled with cardiology in October. Fatigue 04667543 R53.83 She reporting fatigue and malaise. She says that 2 sisters have diagnosis of hypothyroi dism. Coronary arteriosclerosis 34245521 I25.10 On her last visit, she reported hx of coronary artery disease, reports having 4 stents placed, most recent was 5 years ago, treated in [facility]. Per note review and patient report, pacemaker was placed 2 years ago. She presented to the emergency room on 09/24 for acute onset of chest pain and was transferre d to [facility] in [place] and had cardiac catheteriz ation. According to the patient, no new stents were placed. She had medication adjusted at discharge and was placed on ARB. She used to be on bisoprolol and was switched to metoprolol succinate. no active chest pain at this time. She was instructed to call 911/go to ED if develops acute chest pain. [id number] Jose Combs MD [facility] [address] [place] [phone] 12/07/2019 15:32:37 12/07/2019 16:17:08 Type 2 diabetes mellitus 26426403 E11.69 [id number] Sara Del Castillo NP [facility] [address] [place] [id number] 12/18/2019 08:14:27 12/18/2019 10:11:48 Vaginitis [id number] N76.0 Advised pt to call if symptoms do not resolve with treatment. [id number] Salbador Tinajero MD [facility] [address] [place] [phone] 12/19/2019 08:14:26 12/20/2019 08:00:46 Type 2 diabetes mellitus [id number] E11.42 Hemoglobin A1c 10.1%. Will increase dose [...] in 3 months. 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 Hypertension? p jenny reports good control of hypertension on current medication. She denies chest pain, shortness of breath, dyspnea on exertion, orthopnea, PND. COPD? n ot on oxygen. She is on inhalers, denies shortness of breath, cough or wheezing. Denies any recent episodes of exacerbation. GERD? s ays and omeprazole provides appropriate control of symptoms. Salbador Tinajero MD [address] [place] [address], [phone], [facility] 09/10/2019 16:34:18 10/08/2019 text/html This is [...] of chest pain. She was transferred to [facility] in [place] and had cardiac cath done on 09/24/19. Unfortunately, the discharge summary is not available and information is gathered from [facility] admission visit. 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 She has an appointment scheduled with cardiology on November 08 at [facility]. She also reports that she was [...] exertion. She has ongoing lower extremity edema. [facility] is visiting twice weekly for diabetes [...] pain or abdominal pain. Salbador Tinajero MD [address] [place] [address], [phone], [facility] 10/08/2019 16:12:10 12/18/2019 text/html This patient [...] discussed. Patient/guardian was informed how to access [id number] care in the event of an emergency. [...] 4 months ago. Sara Del Castillo NP [address] [place] [address], [phone], [facility] 12/18/2019 09:46:05 12/19/2019 text/html This patient [...] discussed. Patient was informed how to access [id number] care in the event of an emergency. [...] any skin changes, edema. Salbador Tinajero MD [address] [place] [address], [phone], [facility] 12/19/2019 18:08:01 OBGyn Episode No OBEpisode recorded.
== END 2025-01-29 16:27 | disposition home or self-care (01) ==
LOC: HO.ENCR 14:52
PROVIDERS: PCP Nurse Practitioner Family; Visit Provider Registered Nurse Diabetes Educator
DX: E11.65 Type 2 diabetes mellitus with hyperglycemia (principal)

== ENCOUNTER → 2025-01-29 14:51 | Outpatient (BNVA) | payer OTHER, SELFPAY | PROVIDERS: PCP Nurse Practitioner Family; Visit Provider Registered Nurse Diabetes Educator | DX: E11.65 Type 2 diabetes mellitus with hyperglycemia (principal); E11.40 Type 2 diabetes mellitus with diabetic neuropathy, unspecified | CPT/HCPCS: 99211 ==

== ENCOUNTER 2025-01-31 10:30 | Outpatient (AMB) | payer OTHER, SELFPAY ==
--- NOTE | 2025-01-31 11:59 | A.OFFPC_ITS ---
Vital Signs 01/31/25 12:02 Height 5 ft 3 in Weight 218 lb 8 oz BMI 38.7 BP 120/60 Blood Pressure Location Rt brachial Position Sitting Respiration 18 Pulse 92 Pulse Source Pulse Oximeter Temp 98.0 F Temp Source Oral Pulse Oximetry (%) 96 Oxygen Delivery Method Room Air Intake Visit [facility]: [facility]: discharge follow up from [facility] [employer] Required: No Allergies Cephalosporins [CEPHALOSPORINS] Allergy (Intermediate, Verified 01/31/25 12:00) RASH oxycodone [From Tylox] Allergy (Intermediate, Verified 01/31/25 12:00) RASH Sulfa (Sulfonamide Antibiotics) [SULFA (SULFONAMIDE ANTIBIOTICS)] Allergy (Intermediate, Verified 01/31/25 12:00) RASH lisinopril Adverse Reaction (Severe, Verified 01/31/25 12:00) contraindication sulfamethoxazole [From Bactrim] Adverse Reaction (Severe, Verified 01/31/25 12:00) Rash trimethoprim [From Bactrim] Adverse Reaction (Severe, Verified 01/31/25 12:00) Rash naproxen [NAPROXEN] Adverse Reaction (Intermediate, Verified 01/31/25 12:00) contraindication Medication List - Last Reconciled 01/31/25 by Monroe García MD acetaminophen 325 mg PO QID PRN apixaban (Eliquis) 5 mg PO BID 30 days atorvastatin 80 mg (2 x 40 mg) PO DAILY 30 days blood sugar diagnostic (FreeStyle Lite Strips) As directed TID blood-glucose meter (FreeStyle Lite Meter kit) As directed blood-glucose sensor (FreeStyle Danica 3 Plus Sensor device) every 15 days for use with reader carbidopa-levodopa 25-100 mg 1 tab PO BID 30 days carbidopa-levodopa 25-100 mg ER 1 tab PO BID 30 days [chair lift Use chair lift daily as directed.; (height 5'3'') (weight 218 lbs) ] chair, wheel (Wheel chair) Lightweight Wheel Chair. Daily, As directed, 999 days clopidogrel 75 mg PO DAILY 30 days clotrimazole 1% 1 appl topical BID 2 weeks compr.stocking,knee,long,large As directed, 90 days [diabetic shoes with insoles for heel pain and peripheral neuropathy] diaper,brief,adult,disposable (Disposable Brief Jumbo X-Large) As directed duloxetine 40 mg (2 x 20 mg) PO QAM empagliflozin (Jardiance) 25 mg PO DAILY ferrous fumarate 325 mg PO DAILY 30 days FreeStyle Danica 3 [place]unkie (blood-glucose,shuttle inspector,cont) As directed NS FreeStyle Danica 3 [place]unkie (blood-glucose,shuttle inspector,cont) As directed for use with sensors NS gabapentin 200 mg (2 x 100 mg) PO TID 30 days glucagon 3 mg/actuation (Baqsimi) 3 mg intranasal ONCE PRN 30 days MDD 6mg insulin aspart U-100 (Novolog FlexPen U-100 Insulin aspart) subcutaneously use as directed; 151-200 Give 2 units 201-250 Give 4 units 251-300 Give 6 units 301- 350 Give 8 units 351-400 Give 10 units 401-450 Give 12 units > 450 Give 12 units & call MD 30 days insulin glargine (Lantus Solostar U-100 Insulin) 60 units (0.6 mL) subcut DAILY 30 days lancets (FreeStyle Lancets) As directed melatonin 5 mg PO BEDTIME PRN 30 days metoprolol succinate ER 50 mg (2 x 25 mg) PO DAILY 30 days mirtazapine 15 mg PO BEDTIME 30 days miscellaneous medical supply Lift Chair. Daily As directed, 999 days whupdtlk-bfah-FC-calcium-mins 9 mg iron-400 mcg 1 tab PO DAILY 30 days nitrofurantoin monohyd/m-cryst 100 mg (Macrobid) 100 mg PO Q12H 3 days nitroglycerin (Nitrostat) 0.4 mg sublingual Q5M PRN 1 month pantoprazole 40 mg (2 x 20 mg) PO DAILY 30 days pen needle, diabetic (BD Ultra-Fine Micro Pen Needle) To treat BS 4 times a day, As directed, 90 days phenazopyridine (Pyridium) 100 mg PO TID PRN 2 days quetiapine 300 mg (3 x 100 mg) PO BEDTIME 90 days sennosides-docusate sodium 8.6-50 mg (Senexon-S) 1 tab-cap PO BEDTIME spironolactone 25 mg PO DAILY torsemide 30 mg (1.5 x 20 mg) PO DAILY 90 days valsartan 40 mg PO DAILY 30 days walker (Ultra-Light Rollator [facility]) Rollator?walker?with?seat?and?brakes.??Daily?As directed, 999 days Tobacco use date assessed: 11/13/24 Dental Screening Dental Screen Date: 11/13/24 HPI Discharge / [facility] rehab and nursing HPI Details Hospital?discharge?follow-up 74-year-old?patient?with?complicated?past?medical?history?including?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 Hospital?course?was?complicated by?acute?kidney?injury?likely?secondary?to?medication?induced?hypovolemia?and?hy potension?and?also?by?some?episodes?of?hyperglycemia. Some?of?her?medications?including?valsartan?and?and?empagliflozin?were?held?and? restarted?on?12/09/2024. Continued?to?hold?isosorbide?and?spironolactone. ?She?is?now?back?on?s pironolactone. Torsemide?was?switch?from?20?mg?daily?to?20?mg?prn?for?weight?gain?of?3?lb?or?mo re Lantus?was?increased?from?60?units?q.h.s.?to?65?units?q.h.s. She?continues?for?lispro?sliding?scale Patient?also?had?constipation,?likely?secondary?to?Dilaudid in hospital Was?not?discharged?on?opiates Was?given?MiraLax?as?needed?and Senna Pt reports bowels have improved. Patient?was?discharged?from?the?hospital?to?nursing?facility. Now?has been discharged?to?home [facility] Medical History Diabetic neuropathy Anemia Type 2 diabetes mellitus with unspecified complications Atherosclerotic cardiovascular disease Cardiac resynchronization therapy defibrillator (MARKETING DATABASE COORDINATOR-D) in place Surgical History History of colonoscopy H/O endoscopy History of implantable cardioverter-defibrillator (ICD) placement (~02/09/17) History of cardiac catheterization (~08/2015) History of umbilical hernia repair History of appendectomy History of cholecystectomy History of tubal ligation Family History Father Myocardial infarction Mother Uterine cancer Lung cancer Maternal Aunt Uterine cancer Mouth cancer Social History Housing: House Patient Tobacco Use Status: Never used Tobacco e-Cigarette/Vaping Use: Never Used Second Hand Smoke Exposure: No service: No Current occupational status: retired Current occupational exposures/hazards: No Cognitive needs: Yes Hearing needs: No Vision needs: Yes Questionnaire Thrive Questionnaire Date Thrive assessed: 11/13/24 I am a: Patient What is your living situation today?: I have a steady place to live Within the past 12 months, did the food you bought not last and you didn't have the money to get more?: Never true Within the past 12 months, did you worry whether your food would run out before you got money to buy more?: Never true Do you have trouble paying for medicines?: No Do you have trouble getting transportation to medical appointments?: No Do you have trouble paying your heating and electricity bill?: No Do you have trouble taking care of your child, family member or friend?: No Do you have trouble with day-to-day activities such as bathing, preparing meals, shopping, managing finances, etc.?: No Are you currently unemployed and looking for a job?: No Are you interested in more education?: No Please select the resources that you would like help with: None Currently or been in a relationship where the following occur: No concerns reported THRIVE Score: 0 DYLON-7 AMB Questionnaire DYLON-7 Date DYLON - 7 assessed: 07/19/23 Source: Developed by Drs. Wicho Tucker, Sana B.W. Ta Mendoza and colleagues, with an educational thai from [employer] Review of Systems Const Denies chills, Denies fatigue, Denies fever(s), Denies headache(s) and Denies weakness ENT Denies dizziness and Denies headache(s) Card Denies chest pain, Denies lightheadedness, Denies dyspnea and Denies other (Palpitations) Resp Denies cough, Denies dyspnea, Denies wheezing and Denies other ( shortness of breath) Musc Denies numbness and Denies tingling Neuro Denies dizziness, Denies headache(s), Denies numbness, Denies tingling, Denies paresthesias and Denies weakness Psych Denies anxiety and Denies depression Endo Denies fatigue Aller/Immun Denies wheezing Physical exam (Primary Care) Vital Signs: Last Vital Signs Temp 98.0 F 01/31/25 12:02 Pulse 92 01/31/25 12:02 Resp 18 01/31/25 12:02 BP 120/60 01/31/25 12:02 Pulse Ox 96 01/31/25 12:02 Oxygen Delivery Method Room Air 01/31/25 12:02 BMI result Body Mass Index 38.7 Tobacco/Smoking Status: Tobacco use Status Tobacco use date assessed 11/13/24 01/31/25 12:05 Patient Tobacco Use Status Never used Tobacco 01/31/25 12:05 e-Cigarette/Vaping Use Never Used 01/31/25 12:05 Thrive Assessment: Date of Thrive Assessment Date Thrive assessed 11/13/24 01/31/25 12:05 Currently or been in a relationship where the following occur: No concerns reported Const General: no acute distress and well developed Nutritional Appearance: well nourished Orientation/consciousness: patient oriented x3 [facility] Head: Yes normocephalic and Yes atraumatic Eyes General: appearance normal, both eyes and all related structures Pupils: Equal, round and reactive pupils present EOM: EOMs intact bilaterally Resp Effort & Inspection: normal respiratory effort Auscultation: clear to auscultation bilaterally Cardio Rate: regular rate Rhythm: regular rhythm Heart sounds: S1 normal heart sound present, S2 normal heart sound present, no gallops, no murmurs and no rubs Neuro General: patient oriented x3 and gait normal Cranial nerves: Yes Equal, round and reactive pupils present Psych Affect: normal affect Coding Level of Care Code Est Pt Level 4 (77352) Diagnoses Chest pain R07.2 Chest pain type: precordial pain Type 2 diabetes mellitus with unspecified complications E11.8 Hypertension, essential I10 Acute kidney injury N17.9 Atherosclerotic cardiovascular disease I25.10 Constipation K59.00 Assessment & Plan Assessment & Plan (1) Chest pain: Code(s): R07.9 - Chest pain, unspecified Category: Medical Qualifiers: Chest pain type: precordial pain Qualified Code(s): R07.2 - Precordial pain Plan: Resolved This?is?likely?chest?wall?or?musculoskeletal?in?nature (2) Type 2 diabetes mellitus with unspecified complications: Code(s): E11.8 - Type 2 diabetes mellitus with unspecified complications Category: Medical Plan: Recent?A1c?6.7%.??Good?control. She?is?back?on?Lantus?60?units?q.h.s.?and?her?sliding?scale?lispro. No?changes?to?her?current?medication?regimen Followed?by?endocrinology (3) Hypertension, essential: Code(s): I10 - Essential (primary) hypertension Category: Medical Plan: Blood?pressure?is?well?controlled?today. Continue?current?medications (4) Acute kidney injury: Code(s): N17.9 - Acute kidney failure, unspecified Category: Medical Plan: This?was?likely?secondary?to?dehydration?and?hypotension Renal?function?was?improved?at?discharge Will?recheck?lab?work?today (5) Atherosclerotic cardiovascular disease: Code(s): I25.10 - Atherosclerotic heart disease of [place] coronary artery without angina pectoris Category: Medical Plan: Stable (6) Constipation: Code(s): K59.00 - Constipation, unspecified Category: Medical Plan: No?further?constipation Hydrate?well Orders: Orders Basic Metabolic Panel Today N17.9 - Acute kidney failure, unspecified, Z00.00 - Encounter for general adult medical examination without abnormal findings Microalbumin, Random (w Creat) Today I10 - Essential (primary) hypertension, N17.9 - Acute kidney failure, unspecified Complete Blood Count Auto Diff Today N17.9 - Acute kidney failure, unspecified, Z00.00 - Encounter for general adult medical examination without abnormal findings UA CC w/rflx Micro + Cult Today N17.9 - Acute kidney failure, unspecified, Z00.00 - Encounter for general adult medical examination without abnormal findings
[2025-01-31 12:02] VITALS: BP 120/60; PULSE 92; RESP 18; TEMP 36.7; O2SAT 96; BMI 38.7
--- OUTSIDE RECORDS SUMMARY | 2025-01-31 12:15 | XMS_ITS | Data Portability ---
Author Organization [facility], RADIOLOGY Address [address] [place] [address] Care Team Providers Care Pari Mutuel Ticket Cashier Name Role Phone SALBADOR TINAJERO Primary Care Provider Assessment No assessment recorded. Plan of Treatment Reminders Order Date Submit Date Provider Last Modified By Organization Details Last Modified Time Details Appointments None recorded. Lab HbA1c (hemoglobi n A1c), blood 2019 020 [facility], [address] [place], [address], 0 08:44:24 TSH, ultra-sens itive, serum 2019 020 [facility] (Lab), [address] [place] [address], [address], 0 17:03:11 BMP, serum or plasma 2019 020 [facility] (Lab), [address] [place] [address], [address], 0 17:03:05 hepatitis C virus Ab, serum 2019 020 [facility] (Lab), [address] [place], [address], 0 07:05:33 HIV 1+2 AB + HIV 1 p24 Ag, qualitativ e immunoassa y, serum 2019 020 [facility] (Lab), [address] [place], [address], 0 10:06:15 hepatitis B virus surface Ab, quantitati ve immunoassa y, serum 2019 020 [facility] (Lab), [address] [place], [address], 0 07:05:36 CBC w/ auto diff 2019 020 [facility] (Lab), [address] [place], [address], 0 10:00:00 iron + total iron-yoko ng capacity (TIBC), serum 2019 020 [facility] (Lab), [address] [place], [address], 0 11:00:15 microalbum in/creatin ine, mass ratio, urine 2019 020 [facility] (Lab), [address] [place], [address], 0 10:11:23 glycohemog lobin, total, blood 2019 020 [facility] (Lab), [address] [place], [address], 0 10:11:18 lipid panel w/ direct LDL, serum 2019 020 [facility] (Lab), [address] [place], [address], 0 10:12:10 CMP, serum or plasma 2019 020 [facility] (Lab), [address] [place], [address], 0 10:12:20 Referral physical therapist referral [address] [facility], [address] [place], [address], 0 08:59:08 diabetic ophthalmol ogy referral 2019 [facility] 18 Not available 0 07:24:[address] referral 2019 [facility] 18 Not available 0 07:24:51 Procedures None recorded. Surgeries None recorded. Imaging None recorded. Medication Orders Tylenol Extra Strength 500 mg tablet 2019 [facility]FACE [facility], [address] [place], [address], 0 15:47:19 Lantus Solostar U-100 Insulin 100 unit/mL (3 mL) subcutaneo us pen 2019 [facility]FACE [facility], [address] [place], [address], 0 15:47:21 Diflucan 150 mg tablet 2019 020 [facility], [address] [place], [address], 0 09:37:14 Lantus Solostar U-100 Insulin 100 unit/mL (3 mL) subcutaneo us pen 2019 020 [facility], [address] [place], [address], 0 15:58:04 Novolog FlexPen U-100 Insulin aspart 100 unit/mL (3 mL) subcutaneo us 2019 020 [facility], [address] [place], [address], 0 15:58:02 Novolog FlexPen U-100 Insulin aspart 100 unit/mL (3 mL) subcutaneo us 2019 020 [facility], [address] [place], [address], 0 16:12:47 nitroglyce rin 0.4 mg sublingual tablet 2019 020 [facility], [address] [place], [address], 0 16:12:50 Patient TargetsNo targets recorded. Patient InstructionsNo instructions recorded. Reason for Referral [employer] Referral for Co ronary arteriosclerosis Referring Physician: [...] x10^3 /uL 4.0 to 10.0 Not Available [facility] (Lab) [address] [place], [address], 09/11/2019 10:00:00 09/11/19 20 09/11/2019 CBC w/ auto diff red blood cells 4.39 x10^6 /uL 3.93 to 5.22 Not Available [facility] (Lab) [address] [place], [address], 09/11/2019 10:00:00 09/11/1909/11/2019 CBC w/ auto diff hemoglobin 13.8 g/dL 11.2 to 15.7 Not Available [facility] (Lab) [address] [place], [address], 09/11/2019 10:00:00 09/11/19 20 09/11/2019 CBC w/ auto diff hematocrit 41.7 % 34 to 45 Not Available [facility] (Lab) [address] [place], [address], 09/11/2019 10:00:00 09/11/19 20 09/11/2019 CBC w/ auto diff MCV 95.0 fL 79 to 94 high Not Available [facility] (Lab) [address] [place], [address], 09/11/2019 10:00:00 09/11/19 20 09/11/2019 CBC w/ auto diff MCH 31.4 pg 26.6 to 32.2 Not Available [facility] (Lab) [address] [place], [address], 09/11/2019 10:00:00 09/11/19 20 09/11/2019 CBC w/ auto diff MCHC 33.1 g/dL 32 to 36.5 Not Available [facility] (Lab) [address] [place], [address], 09/11/2019 10:00:00 09/11/19 20 09/11/2019 CBC w/ auto diff RDW-SD 43.0 fL 35.0 to 46.0 Not Available [facility] (Lab) [address] [place], [address], 09/11/2019 10:00:00 09/11/19 20 09/11/2019 CBC w/ auto diff RDW-CV 12.7 % 10.9 to 14.4 Not Available [facility] (Lab) [address] [place], [address], 09/11/2019 10:00:00 09/11/19 20 09/11/2019 CBC w/ auto diff platelet 157 x10^3 /uL 145 to 370 Not Available [facility] (Lab) [address] [place], [address], 09/11/2019 10:00:00 09/11/19 20 09/11/2019 CBC w/ auto diff MPV 11.2 fL 9.0 to 12.0 Not Available [facility] (Lab) [address] [place], [address], 09/11/2019 10:00:00 09/11/19 20 09/11/2019 CBC w/ auto diff manual differential NO normal Not Available [facility] (Lab) [address] [place], [address], 09/11/2019 10:00:00 09/11/19 20 09/11/2019 CBC w/ auto diff platelet estimate NOT INDICA PETER normal Not Available [facility] (Lab) [address] [place], [address], 09/11/2019 10:00:00 09/11/19 20 09/11/2019 CBC w/ auto diff RBC morphology NOT INDICA PETER normal Not Available [facility] (Lab) [address] [place], [address], 09/11/2019 10:00:00 09/11/19 20 09/11/2019 CBC w/ auto diff neutrophil % 63.7 % Not Available [facility] (Lab) [address] [place], [address], 09/11/2019 10:00:00 09/11/19 20 09/11/2019 CBC w/ auto diff lymphocyte % 24.9 % Not Available [facility] (Lab) [address] [place], [address], 09/11/2019 10:00:00 09/11/19 20 09/11/2019 CBC w/ auto diff monocyte % 6.7 % Not Available [facility] (Lab) [address] [place], [address], 09/11/2019 10:00:00 09/11/19 20 09/11/2019 CBC w/ auto diff eosinophi % 4.1 % Not Available [facility] (Lab) [address] [place], [address], 09/11/2019 10:00:00 09/11/19 20 09/11/2019 CBC w/ auto diff basophil % 0.6 % Not Available [facility] (Lab) [address] [place], [address], 09/11/2019 10:00:00 09/11/19 20 09/11/2019 CBC w/ auto diff neutrophil absolute 5.5 x10^3 /uL 1.5 to 6.3 Not Available [facility] (Lab) [address] [place], [address], 09/11/2019 10:00:00 09/11/19 20 09/11/2019 CBC w/ auto diff lymphocyte absolute 2.2 x10^3 /uL 1 to 3.6 Not Available [facility] (Lab) [address] [place], [address], 09/11/2019 10:00:00 09/11/19 20 09/11/2019 CBC w/ auto diff monocyte absolute 0.6 x10^3 /uL 0.2 to 1 Not Available [facility] (Lab) [address] [place], [address], 09/11/2019 10:00:00 09/11/19 20 09/11/2019 CBC w/ auto diff eosinophil absolute 0.4 x10^3 /uL 0 to 0.5 Not Available [facility] (Lab) [address] [place], [address], 09/11/2019 10:00:00 09/11/19 20 09/11/2019 CBC w/ auto diff basophil absolute 0.1 x10^3 /uL 0 to 0.2 Not Available [facility] (Lab) [address] [place], [address], 09/11/2019 10:00:00 09/11/19 20 09/11/2019 glyco hemog lobin , total , blood glycosolated hemoglobin A1C 11.9 % 4.5 to 6.2 high Not Available [facility] (Lab) [address] [place], [address], 09/11/2019 10:11:18 09/11/19 20 09/11/2019 micro album in/cr eatin ine, mass ratio , urine microalbumin , random urine 0.21 mg/dL 0.13 to 2.00 Not Available [facility] (Lab) [address] [place], [address], 09/11/2019 10:11:22 09/11/19 20 09/11/2019 micro album in/cr eatin ine, mass ratio , urine creatinine urine 40.44 mg/dL Not Available [facility] (Lab) [address] [place], [address], 09/11/2019 10:11:22 09/11/19 20 09/11/2019 micro album [...] than 300 mg/gm Creat . Not Available [facility] (Lab) [address] [place], [address], 09/11/2019 10:11:22 09/11/19 20 09/11/2019 lipid panel w/ direc t LDL, serum cholesterol 177 mg/dL 26 to 192 Not Available [facility] (Lab) [address] [place], [address], 09/11/2019 10:12:10 09/11/19 20 09/11/2019 lipid panel w/ direc t LDL, serum triglyceride s 175 mg/dL 0 to 200 Not Available [facility] (Lab) [address] [place], [address], 09/11/2019 10:12:10 09/11/19 20 09/11/2019 lipid panel w/ direc t LDL, serum LDL calculated vrh 90 mg/dL 0 to 100 Not Available [facility] (Lab) [address] [place], [address], 09/11/2019 10:12:10 09/11/19 20 09/11/2019 lipid panel w/ direc t LDL, serum HDL cholesterol 52 mg/dL 35 to 85 Not Available [facility] (Lab) [address] [place], [address], 09/11/2019 10:12:10 09/11/19 20 09/11/2019 lipid panel [...] x a direc t LDL. Not Available [facility] (Lab) [address] [place], [address], 09/11/2019 10:12:10 09/11/19 20 09/11/2019 CMP, serum or plasm a sodium 137 mmol/ L 136 to 145 Not Available [facility] (Lab) [address] [place], [address], 09/11/2019 10:12:20 09/11/19 20 09/11/2019 CMP, serum or plasm a potassium 4.1 mmol/ L 3.5 to 5.1 Not Available [facility] (Lab) [address] [place], [address], 09/11/2019 10:12:20 09/11/19 20 09/11/2019 CMP, serum or plasm a chloride 102 mmol/ L 98 to 107 Not Available [facility] (Lab) [address] [place], [address], 09/11/2019 10:12:20 09/11/19 20 09/11/2019 CMP, serum or plasm a carbon dioxide 25 mmol/ L 21 to 32 Not Available [facility] (Lab) [address] [place], [address], 09/11/2019 10:12:20 09/11/19 20 09/11/2019 CMP, serum or plasm a BUN 19 mg/dL 7 to 18 high Not Available [facility] (Lab) [address] [place], [address], 09/11/2019 10:12:20 09/11/19 20 09/11/2019 CMP, serum or plasm a creatinine 1.13 mg/dL 0.55 to 1.02 high Not Available [facility] (Lab) [address] [place], [address], 09/11/2019 10:12:20 09/11/19 20 09/11/2019 CMP, serum or plasm a glucose, random 363 mg/dL 74 to 106 high Not Available [facility] (Lab) [address] [place], [address], 09/11/2019 10:12:20 09/11/19 20 09/11/2019 CMP, serum or plasm a calcium 9.0 mg/dL 8.5 to 10.1 Not Available [facility] (Lab) [address] [place], [address], 09/11/2019 10:12:20 09/11/19 20 09/11/2019 CMP, serum or plasm a anion gap 10.0 mmol/ L 5 to 15 Not Available [facility] (Lab) [address] [place], [address], 09/11/2019 10:12:20 09/11/19 20 09/11/2019 CMP, serum or plasm a glomerular filtration rate 48 mL/mi n/1.7 3_m2 Not Available [facility] (Lab) [address] [place], [address], 09/11/2019 10:12:20 09/11/19 20 09/11/2019 CMP, serum or plasm a total bilirubin 0.4 mg/dL 0.2 to 1.0 Not Available [facility] (Lab) [address] [place], [address], 09/11/2019 10:12:20 09/11/19 20 09/11/2019 CMP, serum or plasm a ALT(SGPT) 44 U/L 12 to 78 Not Available [facility] (Lab) [address] [place], [address], 09/11/2019 10:12:20 09/11/19 20 09/11/2019 CMP, serum or plasm a AST (SGOT) 30 U/L 15 to 37 Not Available [facility] (Lab) [address] [place], [address], 09/11/2019 10:12:20 09/11/19 20 09/11/2019 CMP, serum or plasm a alkaline phosphatase 112 U/L 46 to 116 Not Available [facility] (Lab) [address] [place], [address], 09/11/2019 10:12:20 09/11/19 20 09/11/2019 CMP, serum or plasm a albumin 3.1 g/dL 3.4 to 5.0 low Not Available [facility] (Lab) [address] [place], [address], 09/11/2019 10:12:20 09/11/19 20 09/11/2019 CMP, serum or plasm a total protein 6.8 g/dL 6.4 to 8.3 Not Available [facility] (Lab) [address] [place], [address], 09/11/2019 10:12:20 09/11/19 20 09/11/2019 CMP, serum [...] than 70 years of age. Not Available [facility] (Lab) [address] [place], [address], 09/11/2019 10:12:20 09/11/19 20 09/11/2019 iron + total iron- yoko ng capac ity (TIBC ), serum iron 57 ug/dL 50 to 170 Not Available [facility] (Lab) [address] [place], [address], 09/11/2019 11:00:14 09/11/19 20 09/11/2019 iron + total iron- yoko ng capac ity (TIBC ), serum total iron binding capacity 248 ug/dL 250 to 450 low Not Available [facility] (Lab) [address] [place], [address], 09/11/2019 11:00:14 09/11/1909/11/2019 iron + total iron- yoko ng capac ity (TIBC ), serum % iron saturation 23 % 15 to 50 Iron Satur ation value s below 15% indic ate iron defic ient eryth ropoi esis. Not Available [facility] (Lab) [address] [place], [address], 09/11/2019 11:00:14 09/11/19 20 09/12/2019 hepat itis [...] [address], [place] [address] Lab Direc tor: Lelia Duncan MD, Phone : [phone] Not Available [facility] (Lab) [address] [place] [address], [address], 09/12/2019 07:05:33 09/11/19 20 09/12/2019 hepat itis [...] an [address], [place] [address] Lab Direc tor: Lelia Duncan MD, Phone : [phone] Not Available [facility] (Lab) [address] [place] [address], [address], 09/12/2019 07:05:36 09/11/19 20 09/12/2019 HIV 1+2 AB + HIV 1 p24 Ag, quali tativ e immun oassa y, serum hivreflx Non Reacti ve non reacti ve normal Perfo rmed at: JUANITA Loyd rp [place] [address], [place] [address] Lab Direc tor: Lelia Duncan MD, Phone : [phone] Not Available [facility] (Lab) [address] [place] [address], [address], 09/12/2019 10:06:15 10/16/19 20 10/16/2019 BMP, serum or plasm a sodium 140 mmol/ L 136 to 145 Not Available [facility] (Lab) [address] [place] [address], [address], 10/16/2019 17:03:05 10/16/19 20 10/16/2019 BMP, serum or plasm a potassium 4.4 mmol/ L 3.5 to 5.1 Not Available [facility] (Lab) [address] [place], [address], 10/16/2019 17:03:05 10/16/19 20 10/16/2019 BMP, serum or plasm a chloride 102 mmol/ L 98 to 107 Not Available [facility] (Lab) [address] [place], [address], 10/16/2019 17:03:05 10/16/19 20 10/16/2019 BMP, serum or plasm a carbon dioxide 24 mmol/ L 21 to 32 Not Available [facility] (Lab) [address] [place], [address], 10/16/2019 17:03:05 10/16/19 20 10/16/2019 BMP, serum or plasm a BUN 21 mg/dL 7 to 18 high Not Available [facility] (Lab) [address] [place], [address], 10/16/2019 17:03:05 10/16/19 20 10/16/2019 BMP, serum or plasm a creatinine 1.18 mg/dL 0.55 to 1.02 high Not Available [facility] (Lab) [address] [place], [address], 10/16/2019 17:03:05 10/16/19 20 10/16/2019 BMP, serum or plasm a glucose, random 252 mg/dL 74 to 106 high Not Available [facility] (Lab) [address] [place], [address], 10/16/2019 17:03:05 10/16/19 20 10/16/2019 BMP, serum or plasm a calcium 9.5 mg/dL 8.5 to 10.1 Not Available [facility] (Lab) [address] [place], [address], 10/16/2019 17:03:05 10/16/19 20 10/16/2019 BMP, serum or plasm a anion gap 14.0 mmol/ L 5 to 15 Not Available [facility] (Lab) [address] [place], [address], 10/16/2019 17:03:05 10/16/19 20 10/16/2019 BMP, serum or plasm a glomerular filtration rate 45 mL/mi n/1.7 3_m2 GFR Calcu lated from serum IDMS stand ardiz ed creat inine value Chron ic Kidne y Disea se less than 60 mL/mi n/1.7 3 m2 Kidne y Failu re less than 15 mL/mi n/1.7 3 m2 The eGFR has not been valid ated in [facility] young er than 18 years or older than 70 years of age. Not Available [facility] (Lab) [address] [place], [address], 10/16/2019 17:03:05 10/16/19 20 10/16/2019 TSH, ultra [...] patie nt sampl es. [facility] takin g bioti n suppl ement s or recei ving high- dose bioti n thera py shoul d be inter prete d with cauti on due to possi ble inter feren ce with this test. Not Available [facility] (Lab) [address] [place], [address], 10/16/2019 17:03:11 12/07/19 20 12/07/2019 HbA1c (hemo globi n A1c), blood HbA1c 10.5 Not Available [facility] [address] [place], [address], 12/07/2019 15:33:50 09/23/19 20 09/23/2019 serinai ng/florence campos tic resul t No observ ation record ed. elounder Not Available 2019 09:33:48 Result Notes None recorded. Problems Name Problem SNOMED Code Status Onset Date Resolution Date Notes Provider Name and Address Organization Details Recorded Time Anxiety 85434985 Active 2019 [facility] 0 13:04:43 Depressive disorder 79173019 Active 2019 [facility] 0 13:04:49 Dyslipidemia 387056069 Active 2019 [facility] 0 13:04:55 Gastroesophag eal reflux disease 546267775 Active 2019 [facility] 0 13:05:01 Essential hypertension 78784137 Active 2019 [facility] 0 13:05:08 Left bundle branch block 57117843 Active 2019 [facility] 0 13:05:18 Harmful pattern of use of opioid 5379649 Active 2019 [facility] 0 13:05:26 Acute non-ST segment elevation myocardial infarction 992972244 Active 2019 [facility] 0 13:05:38 Chronic obstructive pulmonary disease 89223755 Active 2019 [facility] 0 13:05:44 Monitoring of pacemaker 28312834 Active 2019 [facility] 0 13:05:52 Congestive heart failure 56435164 Active 2019 Salbador Tinajero MD [address] [place], [address], [facility] 0 16:05:08 Coronary arteriosclero sis 77842605 Active 2019 [facility] 0 13:07:39 Pulmonary embolism 71787789 Active 2019 [facility] 0 13:07:49 Kidney disease 60376685 Active 2019 [facility] 0 13:08:00 Type 2 diabetes mellitus 84873324 Active 2019 [facility] 0 13:11:48 Calcification of breast 694707557 Active 2019 Needs a repeat MAMMO in December 2019 Salbador Tinajero MD [address] [place], [address], [facility] 0 16:34:02 Problem Notes None recorded. Procedures Surgical History Date Name Laterality Status Provider Name and Address Organization Details Recorded Time Hernia Repair completed [facility] 08/23/2019 13:08:59 Tubal Ligation completed [facility] 08/23/2019 13:09:08 Appendectomy completed [facility] 08/23/2019 13:09:15 Gallbladder Surgery completed [facility] 08/23/2019 13:09:22 Pacemaker completed [facility] 08/23/2019 13:09:32 Imaging Results None recorded. Procedure Notes None recorded. Medical Equipment None Reported. Allergies Allergen ID Allergen Name Allergen Category Reaction Reaction Severity Criticality Documentation Date Start Date Code Code System Note Provider Name and Address Organization Details Recorded Time 50281 Bactrim medicatio n Not available Not available Not available 08/23/2019 69877 9 RxNorm [facility] 0 11:49:48 56043 Medicinal product containin g cephalosp arturo and acting as antibacte rial agent (product) medicatio n Not available Not available Not available 08/23/2019 03127 9009 SNOMED [facility] 0 11:49:57 12942 naproxen medicatio n Not available Not available Not available 08/23/2019 7258 RxNorm [facility] 0 11:50:04 36483 Substance with sulfonami de structure and antibacte rial mechanism of action (substanc e) medicatio n Not available Not available Not available 08/23/2019 61727 8003 SNOMED [facility] 0 11:50:21 Medications Name Sig Start Date [...] Not Available No t Available ReliOn Pen [place] 32 gauge x active Not Available Not [...] /min 97 % 97 % 37 kg/m2 28879.8 1 g 124 mm[Hg] 82 mm[Hg] [facility] 0 15:26:42 Date Recorded Body height Heart rate Oxygen saturation Oxygen saturation in Arterial blood by Pulse oximetry Systolic blood pressure Diastolic blood pressure Provider Name and Address Organization Details Last Updated DateTime 0 160.02 cm 77 /min 97 % 97 % 124 mm[Hg] 74 mm[Hg] [facility] 0 15:04:28 Date Recorded Body height Provider Name an d Address Organization Details Last Updated DateTime 12/07/2019 160.02 cm [facility] 12/07/2019 15:33:29 Date Recorded Body height Provider Name an d Address Organization Details Last Updated DateTime 12/18/2019 160.02 cm [facility] 12/18/2019 09:25:05 Date Recorded Body height Provider Name an d Address Organization Details Last Updated DateTime 12/19/2019 160.02 cm [facility] 12/19/2019 15:32:06 Social History Question Answer Notes LastModified by Organizat ion Details LastModified Time Tobacco Smoking Status Never Smoker [facility] 08/23/2019 13:09:59 Do You Have An Advance [...] Recorded Time Tdap 0 completed Odalis VanEeghen [facility] 08/23/2019 13:02:39 Pneumococcal conjugate PCV 13 8 [facility] 08/23/2019 13:03:06 pneumococcal polysaccharide PPV23 2 completed [facility] 08/23/2019 13:03:27 pneumococcal, unspecified formulation 6 completed [facility] 08/23/2019 13:03:44 zoster, unspecified formulation 6 completed [facility] 08/23/2019 13:03:58 Past Encounters Encounter ID Performer Location Encounter Start Date Encounter Closed Date Diagnosis/Indication Diagnosis SNOMED-CT Code Diagnosis ICD10 Code Diagnosis Note [id number] Salbador Tinajero MD [facility] [address] [place] [phone] 09/10/2019 14:55:38 09/10/2019 16:15:08 Coronary arteriosclerosis 09800045 I25.10 Has hx of coronary artery disease, reports having 4 stents placed, most recent was 5 years ago. treated at [facility]. Per note review and patient report, pacemaker was placed 2 years ago. Denies active chest pain at this time. Type 2 gilda betes mellitus 61353407 E11.42 Hemoglobin A1c in December 2018 was 11. Checking her blood sugars frequently , noted blood sugars to be in the 300s-400. -Reports history of neuropathy on the lower extremitie s, denies calluses, wounds -Last dilated eye exam 2 years ago Anxiety 44885090 F41.9 Patient reporting fair control of anxiety but still has episodes of insomnia. Essential hypertension 39325621 I10 BP has been well controlled . Denies chest pain, shortness of breath, dyspnea on exertion, blurred vision. Dyslipidemia 869780289 E 78.5 On atorvastat in 40 mg daily. Gastroesop hageal reflux disease 329896990 K21.9 On omeprazole , reports good symptomati c control on the medication . Depressive disorder 1362 1992 F32.9 Has history of depression . Says symptoms are well controlled . Denies suicidal ideations or passive thoughts of . Does not follow with counseling and does not wish to establish care with counseling . Iron deficiency 68713278 E61.1 Reports a history of iron deficiency anemia, currently on iron supplement ation. Viral screening 80339764 4 Z11.59 [id number] Salbador Tinajero MD [facility] [address] [place] [phone] 10/08/2019 14:47:01 10/08/2019 15:35:33 Type 2 diabetes mellitus 57277690 E11.42 Hemoglobin A1c in December 2018 was [...] discharge summary is not available. Recurrent falls 16838109 2 R29.6 Patient reports 2 episodes of mechanical falls when she slipped on the ice. Congestive heart failure 30935757 I50.9 Patient was started on losartan and metoprolol succinate at discharge. Amina lim, I do not have discharge summary available for review. She has an appointmen t scheduled with cardiology in October. Fatigue [id number] R53.83 She reporting fatigue and malaise. She says that 2 sisters have diagnosis of hypothyroi dism. Coronary arteriosclerosis [id number] I25.10 On her last visit, she reported hx of coronary artery disease, reports having 4 stents placed, most recent was 5 years ago, treated in [facility]. Per note review and patient report, pacemaker was placed 2 years ago. She presented to the emergency room on 09/24 for acute onset of chest pain and was transferre d to [facility] in [place] and had cardiac catheteriz ation. According to the patient, no new stents were placed. She had medication adjusted at discharge and was placed on ARB. She used to be on bisoprolol and was switched to metoprolol succinate. no active chest pain at this time. She was instructed to call 911/go to ED if develops acute chest pain. [id number] Jose Combs MD [facility] [address] [place] [address] [phone] 12/07/2019 15:32:37 12/07/2019 16:17:08 Type 2 diabetes mellitus [id number] E11.69 [id number] Sara Del Castillo NP [facility] [address] [place] [phone] 12/18/2019 08:14:27 12/18/2019 10:11:48 Vaginitis [id number] N76.0 Advised pt to call if symptoms do not resolve with treatment. [id number] Salbador Tinajero MD [facility] [address] [place] [address] [phone] 12/19/2019 08:14:26 12/20/2019 08:00:46 Type 2 diabetes mellitus [id number] E11.42 Hemoglobin A1c 10.1%. Will increase dose [...] in 3 months. Pain of hip region 29767 002 M25.559 6 weeks of mild to [...] 1 [employer] (MEDICARE REPLACEMENT/A DVANTAGE - HMO) [id number] Deanna Chacon [id number] Deanna Chacon Notes Date Note Type Note Provider Name and Address Organization Details Recorded Time 09/10/2019 text/html 68-year-old fema le with past medical history of type 2 diabetes, hypertension, COPD not on oxygen, heart failure, history of coronary artery disease, OR x2 s/p stent placement with pacemaker placed [...] She has been seen by cardiology in [place], denies seeing any ui architect since moving to [place]. Hypertension? p jenny reports good control of hypertension on current medication. She denies chest pain, shortness of breath, dyspnea on exertion, orthopnea, PND. COPD? n ot on oxygen. She is on inhalers, denies shortness of breath, cough or wheezing. Denies any recent episodes of exacerbation. GERD? s ays and omeprazole provides appropriate control of symptoms. Salbador Tinajero MD [address] [place] [address], [phone], [facility] 09/10/2019 16:34:18 10/08/2019 text/html This [...] of chest pain. She was transferred to [facility] in [place] and had cardiac cath done on 09/24/19. Unfortunately, the discharge summary is not available and information is gathered from [facility] admission visit. 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 She has an appointment scheduled with cardiology on November [address] [facility]. She also reports that she was started [...] has ongoing lower extremity edema. [facility] is visiting twice weekly for diabetes education [...] pain or abdominal pain. Salbador Tinajero MD [address] [place] [address], [phone], [facility] 10/08/2019 16:12:10 12/18/2019 text/html This [...] discussed. Patient/guardian was informed how to access [id number] care in the event of an emergency. Provider was located in an Ambulatory consult room/in a remote secure location during the visit. If this is a new patient visit, all available records and medical history were reviewed by the provider. Visit length was 7 minutes and counseling was done on the [...] 4 months ago. Sara Del Castillo NP [address] [place] [address], [phone], [facility] 12/18/2019 09:46:05 12/19/2019 text/html This [...] discussed. Patient was informed how to access [id number] care in the event of an emergency. [...] any skin changes, edema. Salbador Tinajero MD [address] [place] [address], [phone], [facility] 12/19/2019 18:08:01 OBGyn Episode No OBEpisode recorded.
== END 2025-01-31 12:35 | disposition home or self-care (01) ==
LOC: HO.HMCFM 10:31
PROVIDERS: PCP Family Medicine; Visit Provider Family Medicine
DX: R07.2 Precordial pain (principal); E11.8 Type 2 diabetes mellitus with unspecified complications; I10 Essential (primary) hypertension; N17.9 Acute kidney failure, unspecified; I25.10 Atherosclerotic heart disease of native coronary artery without angina pectoris; K59.00 Constipation, unspecified

== ENCOUNTER → 2025-01-31 10:30 | Outpatient (BNVA) | payer OTHER, SELFPAY | PROVIDERS: PCP Family Medicine; Visit Provider Family Medicine | DX: I25.10 Atherosclerotic heart disease of native coronary artery without angina pectoris (principal); I42.9 Cardiomyopathy, unspecified; E11.22 Type 2 diabetes mellitus with diabetic chronic kidney disease; I13.0 Hypertensive heart and chronic kidney disease with heart failure and stage 1 through stage 4 chronic kidney disease, or unspecified chronic kidney disease; I50.9 Heart failure, unspecified; N18.9 Chronic kidney disease, unspecified; R07.2 Precordial pain; N17.9 Acute kidney failure, unspecified; K59.00 Constipation, unspecified | CPT/HCPCS: 99212 ==

== ENCOUNTER 2025-02-04 12:03 | Outpatient (AMB) | payer OTHER, SELFPAY ==
--- NOTE | 2025-02-04 12:23 | MHC.AMDMED ---
Intake Intake Visit Reasons: Set up Danica 3 Allergies Cephalosporins [CEPHALOSPORINS] Allergy (Intermediate, Verified 01/31/25 12:00) RASH oxycodone [From Tylox] Allergy (Intermediate, Verified 01/31/25 12:00) RASH Sulfa (Sulfonamide Antibiotics) [SULFA (SULFONAMIDE ANTIBIOTICS)] Allergy (Intermediate, Verified 01/31/25 12:00) RASH lisinopril Adverse Reaction (Severe, Verified 01/31/25 12:00) contraindication sulfamethoxazole [From Bactrim] Adverse Reaction (Severe, Verified 01/31/25 12:00) Rash trimethoprim [From Bactrim] Adverse Reaction (Severe, Verified 01/31/25 12:00) Rash naproxen [NAPROXEN] Adverse Reaction (Intermediate, Verified 01/31/25 12:00) contraindication HPI Comprehensive Diabetes Asmnt Most Recent Diabetes Results: No Data to Display [facility] Medical History Diabetic neuropathy Anemia Type 2 diabetes mellitus with unspecified complications Atherosclerotic cardiovascular disease Cardiac resynchronization therapy defibrillator (CONSERVATION SPECIALIST-D) in place Surgical History History of colonoscopy H/O endoscopy History of implantable cardioverter-defibrillator (ICD) placement (~02/09/17) History of cardiac catheterization (~08/2015) History of umbilical hernia repair History of appendectomy History of cholecystectomy History of tubal ligation Family History Father Myocardial infarction Mother Uterine cancer Lung cancer Maternal Aunt Uterine cancer Mouth cancer Social History Housing: House Patient Tobacco Use Status: Never used Tobacco e-Cigarette/Vaping Use: Never Used Second Hand Smoke Exposure: No service: No Current occupational status: retired Current occupational exposures/hazards: No Cognitive needs: Yes Hearing needs: No Vision needs: Yes Assessment & Plan Assessment & Plan (1) Type 2 diabetes mellitus with unspecified complications: Code(s): E11.8 - Type 2 diabetes mellitus with unspecified complications Plan: Patient at visit to set up an insert Danica 3+ with [place] Instructed patient sensors water proof you can shower, or swim do not submerge sensor in water for over 30 minutes Is sensor falls off cannot put back in you need to replace sensor, customer service number given to patient for sensor replacement Sensor placed on the back of Right arm Patient left visit with sensor in warmup Reviewed how to interpret trend arrows Discussed lag time between finger stick and sensor data.? Instructed patient the importance of having blood glucometer for backup testing if needed Reviewed delay of CGM from fingersticks Reminded Pt that if symptoms do not match sensor still needs to check fingersticks. Portions of this note were created using voice recognition software, please excuse any words or phrases that may have been misinterpreted. Patient Instructions: Patient instruction: CGM provides information on blood glucose control throughout the day, including hyperglycemia and hypoglycemia. ? Continue to monitor blood glucose as instructed. Follow nutrition guidelines provided. Report any discomfort promptly to health care provider. ?Stay well-hydrated. You can bathe ,shower, swim and exercise while wearing the glucose sensor. Do not submerge glucose sensor in water for more than 30 minutes. Coding Level of Care Code Est Pt Level 1 (96502) Diagnoses Type 2 diabetes mellitus with unspecified complications E11.8
== END 2025-02-04 12:26 | disposition home or self-care (01) ==
LOC: HO.ENCR 12:04
PROVIDERS: PCP Family Medicine; Visit Provider Registered Nurse Diabetes Educator
DX: E11.8 Type 2 diabetes mellitus with unspecified complications (principal)

== ENCOUNTER → 2025-02-04 12:03 | Outpatient (BNVA) | payer OTHER, SELFPAY | PROVIDERS: PCP Family Medicine; Visit Provider Registered Nurse Diabetes Educator | DX: E11.8 Type 2 diabetes mellitus with unspecified complications (principal) | CPT/HCPCS: 99211 ==

== ENCOUNTER 2025-02-19 12:19 | Outpatient (AMB) | payer OTHER, SELFPAY ==
--- NOTE | 2025-02-19 12:35 | MHC.AMDMED ---
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 Accompanied by: Son Allergies Cephalosporins (CEPHALOSPORINS) Allergy (Intermediate, Verified 01/31/25 12:00) RASH oxycodone (From Tylox) Allergy (Intermediate, Verified 01/31/25 12:00) RASH Sulfa (Sulfonamide Antibiotics) (SULFA (SULFONAMIDE ANTIBIOTICS)) Allergy (Intermediate, Verified 01/31/25 12:00) RASH lisinopril Adverse Reaction (Severe, Verified 01/31/25 12:00) contraindication sulfamethoxazole (From Bactrim) Adverse Reaction (Severe, Verified 01/31/25 12:00) Rash trimethoprim (From Bactrim) Adverse Reaction (Severe, Verified 01/31/25 12:00) Rash naproxen (NAPROXEN) Adverse Reaction (Intermediate, Verified 01/31/25 12:00) contraindication REPLACED BY [facility] Medical History Diabetic neuropathy Anemia Type 2 diabetes mellitus with unspecified complications Atherosclerotic cardiovascular disease Cardiac resynchronization therapy defibrillator (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 WORKER-D) in place Surgical History History of colonoscopy H/O endoscopy History of implantable cardioverter-defibrillator (ICD) placement (~02/09/17) History of cardiac catheterization (~08/2015) History of umbilical hernia repair History of appendectomy History of cholecystectomy History of tubal ligation Family History Father Myocardial infarction Mother Uterine cancer Lung cancer Maternal Aunt Uterine cancer Mouth cancer Social History Housing: House Patient Tobacco Use Status: Never used Tobacco e-Cigarette/Vaping Use: Never Used Second Hand Smoke Exposure: No service: No Current occupational status: retired Current occupational exposures/hazards: No Cognitive needs: Yes Hearing needs: No Vision needs: Yes Assessment & Plan Assessment & Plan (1) Diabetes type 2, uncontrolled: Code(s): E11.65 - Type 2 diabetes mellitus with hyperglycemia Plan: Patient at visit to set up an insert Danica 3+ sensor with reader Pt's first sensor fell off the 2nd day. Instructed Pt to call for replacement sensor. Showed Pt's son 's number on sensor box Instructed Pt and her son on how to apply [place]. for better adhesion. Pt's son inserted sensor on the back of right arm Patient left visit with sensor in warmup Reminded Pt that if symptoms do not match sensor still needs to check fingersticks. Portions of this note were created using voice recognition software, please excuse any words or phrases that may have been misinterpreted. Patient Instructions: Patient instruction: CGM provides information on blood glucose control throughout the day, including hyperglycemia and hypoglycemia. ? Continue to monitor blood glucose as instructed. Follow nutrition guidelines provided. Report any discomfort promptly to health care provider. ?Stay well-hydrated. You can bathe ,shower, swim and exercise while wearing the glucose sensor. Do not submerge glucose sensor in water for more than 30 minutes. Coding Level of Care Code Est Pt Level 1 (39423) Diagnoses Diabetes type 2, uncontrolled E11.65
--- OUTSIDE RECORDS SUMMARY | 2025-02-19 13:18 | XMS_ITS | Clinical Summary ---
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 [address] [phone] Bereket Olivo MD [address] [phone] Health Maintenance Due Date Last Done Comments Breast Cancer Screening 1950 Colorectal Cancer Screening: Annual FOBT 1999 Colorectal Cancer Screening: Colonoscopy 1999 Colorectal Cancer Screening: Sigmoidoscopy 1999 Pneumococcal Vaccine: 50+ Years (4 of 4 - PCV20 or PCV21) 09/21/2022 09/21/2017, 05/09/2012, 08/22/2005 Diabetes: Hemoglobin A1C 12/06/2024 Diabetes: Ophthalmology Exam 12/06/2024 Diabetes: Pedal Pulse Checked 12/06/2024 Diabetes: Sensory Foot Exam 12/06/2024 Diabetes: Visual Foot Exam 12/06/2024 Influenza Vaccine (Season Ended) 2025 Hepatitis B Vaccine Aged Out No longe r eligible based on patient's age to complete this topic Insurance [facility] ([id number]) [place] [id number]
--- OUTSIDE RECORDS SUMMARY | 2025-02-19 13:18 | XMS_ITS | Data Portability ---
Author Organization [facility], RADIOLOGY Address [address] [place] [address] Care Team Providers Care Kiln Worker Name Role Phone SALBADOR TINAJERO Primary Care Provider Assessment No assessment recorded. Plan of Treatment Reminders Order Date Submit Date Provider Last Modified By Organization Details Last Modified Time Details Appointments None recorded. Lab HbA1c (hemoglobi n A1c), blood 2019 020 [facility], [address] [place], [address], 0 08:44:24 TSH, ultra-sens itive, serum 2019 020 [facility] (Lab), [address] [place] [address], [address], 0 17:03:11 BMP, serum or plasma 2019 020 [facility] (Lab), [address] [place] [address], [address], 0 17:03:05 hepatitis C virus Ab, serum 2019 020 [facility] (Lab), [address] [place], [address], 0 07:05:33 HIV 1+2 AB + HIV 1 p24 Ag, qualitativ e immunoassa y, serum 2019 020 [facility] (Lab), [address] [place], [address], 0 10:06:15 hepatitis B virus surface Ab, quantitati ve immunoassa y, serum 2019 020 [facility] (Lab), [address] [place], [address], 0 07:05:36 CBC w/ auto diff 2019 020 [facility] (Lab), [address] [place], [address], 0 10:00:00 iron + total iron-yoko ng capacity (TIBC), serum 2019 020 [facility] (Lab), [address] [place], [address], 0 11:00:15 microalbum in/creatin ine, mass ratio, urine 2019 020 [facility] (Lab), [address] [place], [address], 0 10:11:23 glycohemog lobin, total, blood 2019 020 [facility] (Lab), [address] [place], [address], 0 10:11:18 lipid panel w/ direct LDL, serum 2019 020 [facility] (Lab), [address] [place], [address], 0 10:12:10 CMP, serum or plasma 2019 020 [facility] (Lab), [address] [place], [address], 0 10:12:20 Referral physical therapist referral [address] [facility], [address] [place], [address], 0 08:59:08 diabetic ophthalmol ogy referral 2019 [facility] 18 Not available 0 07:24:[address] referral 2019 [facility] 18 Not available 0 07:24:51 Procedures None recorded. Surgeries None recorded. Imaging None recorded. Medication Orders Tylenol Extra Strength 500 mg tablet [address] [facility], [address] [place], [address], 0 15:47:19 Lantus Solostar U-100 Insulin 100 unit/mL (3 mL) subcutaneo us pen [address] [facility], [address] [place], [address], 0 15:47:21 Diflucan 150 mg tablet [address] [facility], [address] [place], [address], 0 09:37:14 Lantus Solostar U-100 Insulin 100 unit/mL (3 mL) subcutaneo us pen [address] [facility], [address] [place], [address], 0 15:58:04 Novolog FlexPen U-100 Insulin aspart 100 unit/mL (3 mL) subcutaneo us [address] [facility], [address] [place], [address], 0 15:58:02 Novolog FlexPen U-100 Insulin aspart 100 unit/mL (3 mL) subcutaneo us [address] [facility], [address] [place], [address], 0 16:12:47 nitroglyce rin 0.4 mg sublingual tablet [address] [facility], [address] [place], [address], 0 16:12:50 Patient TargetsNo targets recorded. Patient InstructionsNo instructions recorded. Reason for Referral [employer] Referral for Co ronary arteriosclerosis Referring Physician: [...] Abnormal Flag Note LastModifiedBy Organization Detail LastModifiedTime 09/11/1909/11/2019 CBC w/ auto diff white blood cells 8.6 x10^3 /uL 4.0 to 10.0 Not Available [facility] (Lab) [address] [place], [address], 09/11/2019 10:00:00 09/11/19 20 09/11/2019 CBC w/ auto diff red blood cells 4.39 x10^6 /uL 3.93 to 5.22 Not Available [facility] (Lab) [address] [place], [address], 09/11/2019 10:00:00 09/11/19 20 09/11/2019 CBC w/ auto diff hemoglobin 13.8 g/dL 11.2 to 15.7 Not Available [facility] (Lab) [address] [place], [address], 09/11/2019 10:00:00 09/11/19 20 09/11/2019 CBC w/ auto diff hematocrit 41.7 % 34 to 45 Not Available [facility] (Lab) [address] [place], [address], 09/11/2019 10:00:00 09/11/19 20 09/11/2019 CBC w/ auto diff MCV 95.0 fL 79 to 94 high Not Available [facility] (Lab) [address] [place], [address], 09/11/2019 10:00:00 09/11/19 20 09/11/2019 CBC w/ auto diff MCH 31.4 pg 26.6 to 32.2 Not Available [facility] (Lab) [address] [place], [address], 09/11/2019 10:00:00 09/11/19 20 09/11/2019 CBC w/ auto diff MCHC 33.1 g/dL 32 to 36.5 Not Available [facility] (Lab) [address] [place], [address], 09/11/2019 10:00:00 09/11/19 20 09/11/2019 CBC w/ auto diff RDW-SD 43.0 fL 35.0 to 46.0 Not Available [facility] (Lab) [address] [place], [address], 09/11/2019 10:00:00 09/11/19 20 09/11/2019 CBC w/ auto diff RDW-CV 12.7 % 10.9 to 14.4 Not Available [facility] (Lab) [address] [place], [address], 09/11/2019 10:00:00 09/11/19 20 09/11/2019 CBC w/ auto diff platelet 157 x10^3 /uL 145 to 370 Not Available [facility] (Lab) [address] [place], [address], 09/11/2019 10:00:00 09/11/19 20 09/11/2019 CBC w/ auto diff MPV 11.2 fL 9.0 to 12.0 Not Available [facility] (Lab) [address] [place], [address], 09/11/2019 10:00:00 09/11/19 20 09/11/2019 CBC w/ auto diff manual differential NO normal Not Available [facility] (Lab) [address] [place], [address], 09/11/2019 10:00:00 09/11/19 20 09/11/2019 CBC w/ auto diff platelet estimate NOT INDICA PETER normal Not Available [facility] (Lab) [address] [place], [address], 09/11/2019 10:00:00 09/11/19 20 09/11/2019 CBC w/ auto diff RBC morphology NOT INDICA PETER normal Not Available [facility] (Lab) [address] [place], [address], 09/11/2019 10:00:00 09/11/19 20 09/11/2019 CBC w/ auto diff neutrophil % 63.7 % Not Available [facility] (Lab) [address] [place], [address], 09/11/2019 10:00:00 09/11/19 20 09/11/2019 CBC w/ auto diff lymphocyte % 24.9 % Not Available [facility] (Lab) [address] [place], [address], 09/11/2019 10:00:00 09/11/19 20 09/11/2019 CBC w/ auto diff monocyte % 6.7 % Not Available [facility] (Lab) [address] [place], [address], 09/11/2019 10:00:00 09/11/19 20 09/11/2019 CBC w/ auto diff eosinophi % 4.1 % Not Available [facility] (Lab) [address] [place], [address], 09/11/2019 10:00:00 09/11/19 20 09/11/2019 CBC w/ auto diff basophil % 0.6 % Not Available [facility] (Lab) [address] [place], [address], 09/11/2019 10:00:00 09/11/19 20 09/11/2019 CBC w/ auto diff neutrophil absolute 5.5 x10^3 /uL 1.5 to 6.3 Not Available [facility] (Lab) [address] [place], [address], 09/11/2019 10:00:00 09/11/19 20 09/11/2019 CBC w/ auto diff lymphocyte absolute 2.2 x10^3 /uL 1 to 3.6 Not Available [facility] (Lab) [address] [place], [address], 09/11/2019 10:00:00 09/11/19 20 09/11/2019 CBC w/ auto diff monocyte absolute 0.6 x10^3 /uL 0.2 to 1 Not Available [facility] (Lab) [address] [place], [address], 09/11/2019 10:00:00 09/11/19 20 09/11/2019 CBC w/ auto diff eosinophil absolute 0.4 x10^3 /uL 0 to 0.5 Not Available [facility] (Lab) [address] [place], [address], 09/11/2019 10:00:00 09/11/19 20 09/11/2019 CBC w/ auto diff basophil absolute 0.1 x10^3 /uL 0 to 0.2 Not Available [facility] (Lab) [address] [place], [address], 09/11/2019 10:00:00 09/11/19 20 09/11/2019 glyco hemog lobin , total , blood glycosolated hemoglobin A1C 11.9 % 4.5 to 6.2 high Not Available [facility] (Lab) [address] [place], [address], 09/11/2019 10:11:18 09/11/19 20 09/11/2019 micro album in/cr eatin ine, mass ratio , urine microalbumin , random urine 0.21 mg/dL 0.13 to 2.00 Not Available [facility] (Lab) [address] [place], [address], 09/11/2019 10:11:22 09/11/19 20 09/11/2019 micro album in/cr eatin ine, mass ratio , urine creatinine urine 40.44 mg/dL Not Available [facility] (Lab) [address] [place], [address], 09/11/2019 10:11:22 09/11/19 20 09/11/2019 micro album [...] Not Available [facility] (Lab) [address] [place], [address], 09/11/2019 10:11:22 09/11/19 20 09/11/2019 lipid panel w/ direc t LDL, serum cholesterol 177 mg/dL 26 to 192 Not Available [facility] (Lab) [address] [place], [address], 09/11/2019 10:12:10 09/11/19 20 09/11/2019 lipid panel w/ direc t LDL, serum triglyceride s 175 mg/dL 0 to 200 Not Available [facility] (Lab) [address] [place], [address], 09/11/2019 10:12:10 09/11/19 20 09/11/2019 lipid panel w/ direc t LDL, serum LDL calculated vrh 90 mg/dL 0 to 100 Not Available [facility] (Lab) [address] [place], [address], 09/11/2019 10:12:10 09/11/19 20 09/11/2019 lipid panel w/ direc t LDL, serum HDL cholesterol 52 mg/dL 35 to 85 Not Available [facility] (Lab) [address] [place], [address], 09/11/2019 10:12:10 09/11/19 20 09/11/2019 lipid panel [...] Not Available [facility] (Lab) [address] [place], [address], 09/11/2019 10:12:10 09/11/19 20 09/11/2019 CMP, serum or plasm a sodium 137 mmol/ L 136 to 145 Not Available [facility] (Lab) [address] [place], [address], 09/11/2019 10:12:20 09/11/19 20 09/11/2019 CMP, serum or plasm a potassium 4.1 mmol/ L 3.5 to 5.1 Not Available [facility] (Lab) [address] [place], [address], 09/11/2019 10:12:20 09/11/19 20 09/11/2019 CMP, serum or plasm a chloride 102 mmol/ L 98 to 107 Not Available [facility] (Lab) [address] [place], [address], 09/11/2019 10:12:20 09/11/19 20 09/11/2019 CMP, serum or plasm a carbon dioxide 25 mmol/ L 21 to 32 Not Available [facility] (Lab) [address] [place], [address], 09/11/2019 10:12:20 09/11/19 20 09/11/2019 CMP, serum or plasm a BUN 19 mg/dL 7 to 18 high Not Available [facility] (Lab) [address] [place], [address], 09/11/2019 10:12:20 09/11/19 20 09/11/2019 CMP, serum or plasm a creatinine 1.13 mg/dL 0.55 to 1.02 high Not Available [facility] (Lab) [address] [place], [address], 09/11/2019 10:12:20 09/11/19 20 09/11/2019 CMP, serum or plasm a glucose, random 363 mg/dL 74 to 106 high Not Available [facility] (Lab) [address] [place], [address], 09/11/2019 10:12:20 09/11/19 20 09/11/2019 CMP, serum or plasm a calcium 9.0 mg/dL 8.5 to 10.1 Not Available [facility] (Lab) [address] [place], [address], 09/11/2019 10:12:20 09/11/19 20 09/11/2019 CMP, serum or plasm a anion gap 10.0 mmol/ L 5 to 15 Not Available [facility] (Lab) [address] [place], [address], 09/11/2019 10:12:20 09/11/19 20 09/11/2019 CMP, serum or plasm a glomerular filtration rate 48 mL/mi n/1.7 3_m2 Not Available [facility] (Lab) [address] [place], [address], 09/11/2019 10:12:20 09/11/19 20 09/11/2019 CMP, serum or plasm a total bilirubin 0.4 mg/dL 0.2 to 1.0 Not Available [facility] (Lab) [address] [place], [address], 09/11/2019 10:12:20 09/11/19 20 09/11/2019 CMP, serum or plasm a ALT(SGPT) 44 U/L 12 to 78 Not Available [facility] (Lab) [address] [place], [address], 09/11/2019 10:12:20 09/11/19 20 09/11/2019 CMP, serum or plasm a AST (SGOT) 30 U/L 15 to 37 Not Available [facility] (Lab) [address] [place], [address], 09/11/2019 10:12:20 09/11/19 20 09/11/2019 CMP, serum or plasm a alkaline phosphatase 112 U/L 46 to 116 Not Available [facility] (Lab) [address] [place], [address], 09/11/2019 10:12:20 09/11/19 20 09/11/2019 CMP, serum or plasm a albumin 3.1 g/dL 3.4 to 5.0 low Not Available [facility] (Lab) [address] [place], [address], 09/11/2019 10:12:20 09/11/19 20 09/11/2019 CMP, serum or plasm a total protein 6.8 g/dL 6.4 to 8.3 Not Available [facility] (Lab) [address] [place], [address], 09/11/2019 10:12:20 09/11/19 20 09/11/2019 CMP, serum or plasm a A/G ratio 0.8 0.8 to 2.0 GFR Calcu lated from serum IDMS stand jose guadalupe pandya creat inine value Chron ic Kidne y Disea se less than 60 mL/mi n/1.7 3 m2 Kidne y Failu re less than 15 mL/mi n/1.7 3 m2 The eGFR has not been valid ated in patie nts young er than 18 years or older than 70 years of age. Not Available [facility] (Lab) [address] [place], [address], 09/11/2019 10:12:20 09/11/19 20 09/11/2019 iron + total iron- yoko ng capac ity (TIBC ), serum iron 57 ug/dL 50 to 170 Not Available [facility] (Lab) [address] [place], [address], 09/11/2019 11:00:14 09/11/19 20 09/11/2019 iron + total iron- yoko ng capac ity (TIBC ), serum total iron binding capacity 248 ug/dL 250 to 450 low Not Available [facility] (Lab) [address] [place], [address], 09/11/2019 11:00:14 09/11/19 20 09/11/2019 iron + total iron- yoko ng capac ity (TIBC ), serum % iron saturation 23 % 15 to 50 Iron Satur ation value s below 15% indic ate iron defic ient eryth ropoi esis. Not Available [facility] (Lab) [address] [place], [address], 09/11/2019 11:00:14 09/11/19 20 09/12/2019 hepat itis C virus Ab, serum HCV antibody <0.1 s/co_ ratio 0.0-0. 9 normal Negat katelynn: < 0.8 Indet ermin ate: 0.8 - 0.9 Posit katelynn: > 0.9 . The CDC recom mends that a posit katelynn HCV antib jeanette resul t be follo wed up with a HCV Nucle ic Acid Ampli ficat ion test (9465 13). Perfo rmed at: [facility] [place] [address], [place] [address] Lab Direc tor: Lelia Duncan MD, Phone : [phone] Not Available [facility] (Lab) [address] [place] [address], [address], 09/12/2019 07:05:33 09/11/19 20 09/12/2019 hepat itis B virus surfa ce Ab, quant itati ve immun oassa y, serum hepbsab Non Reacti ve normal Non React katelynn: Incon siste nt with immun ity, less than 10 mIU/m L React katelynn: Consi stent with immun ity, great er than 9.9 mIU/m L Perfo rmed at: [facility] [place] [address], [place] [address] Lab Direc tor: Lelia Duncan MD, Phone : [phone] Not Available [facility] (Lab) [address] [place] [address], [address], 09/12/2019 07:05:36 09/11/19 20 09/12/2019 HIV 1+2 AB + HIV 1 p24 Ag, quali tativ e immun oassa y, serum hivreflx Non Reacti ve non reacti ve normal Perfo rmed at: [facility] [place] [address], [place] [address] Lab Direc tor: Lelia Duncan MD, Phone : [phone] Not Available [facility] (Lab) [address] [place] [address], [address], 09/12/2019 10:06:15 10/16/19 20 10/16/2019 BMP, serum or plasm a sodium 140 mmol/ L 136 to 145 Not Available [facility] (Lab) [address] [place] [address], [address], 10/16/2019 17:03:05 10/16/19 20 10/16/2019 BMP, serum or plasm a potassium 4.4 mmol/ L 3.5 to 5.1 Not Available [facility] (Lab) [address] [place], [address], 10/16/2019 17:03:05 10/16/19 20 10/16/2019 BMP, serum or plasm a chloride 102 mmol/ L 98 to 107 Not Available [facility] (Lab) [address] [place], [address], 10/16/2019 17:03:05 10/16/19 20 10/16/2019 BMP, serum or plasm a carbon dioxide 24 mmol/ L 21 to 32 Not Available [facility] (Lab) [address] [place], [address], 10/16/2019 17:03:05 10/16/19 20 10/16/2019 BMP, serum or plasm a BUN 21 mg/dL 7 to 18 high Not Available [facility] (Lab) [address] [place], [address], 10/16/2019 17:03:05 10/16/19 20 10/16/2019 BMP, serum or plasm a creatinine 1.18 mg/dL 0.55 to 1.02 high Not Available [facility] (Lab) [address] [place], [address], 10/16/2019 17:03:05 10/16/19 20 10/16/2019 BMP, serum or plasm a glucose, random 252 mg/dL 74 to 106 high Not Available [facility] (Lab) [address] [place], [address], 10/16/2019 17:03:05 10/16/19 20 10/16/2019 BMP, serum or plasm a calcium 9.5 mg/dL 8.5 to 10.1 Not Available [facility] (Lab) [address] [place], [address], 10/16/2019 17:03:05 10/16/19 20 10/16/2019 BMP, serum or plasm a anion gap 14.0 mmol/ L 5 to 15 Not Available [facility] (Lab) [address] [place], [address], 10/16/2019 17:03:05 10/16/19 20 10/16/2019 BMP, serum [...] Not Available [facility] (Lab) [address] [place], [address], 10/16/2019 17:03:05 10/16/19 20 10/16/2019 TSH, ultra [...] patie nt sampl es. Resul ts from patie nts takin g bioti n suppl ement s or recei ving high- dose bioti n thera py shoul d be inter prete d with cauti on due to possi ble inter feren ce with this test. Not Available [facility] (Lab) [address] [place], [address], 10/16/2019 17:03:11 12/07/19 20 12/07/2019 HbA1c (hemo globi n A1c), blood HbA1c 10.5 Not Available [facility] [address] [place] [address], [address], 12/07/2019 15:33:50 09/23/19 20 09/23/2019 imagi ng/florence campos tic resul t No observ ation record ed. elounder Not Available 2019 09:33:48 Result Notes None recorded. Problems Name Problem SNOMED Code Status Onset Date Resolution Date Notes Provider Name and Address Organization Details Recorded Time Anxiety 00168241 Active 2019 [facility] 0 13:04:43 Depressive disorder 76713112 Active 2019 [facility] 0 13:04:49 Dyslipidemia 361103672 Active 2019 [facility] 0 13:04:55 Gastroesophag eal reflux disease 111564387 Active 2019 [facility] 0 13:05:01 Essential hypertension 79567124 Active 2019 [facility] 0 13:05:08 Left bundle branch block 27224159 Active 2019 [facility] 0 13:05:18 Harmful pattern of use of opioid 2589526 Active 2019 [facility] 0 13:05:26 Acute non-ST segment elevation myocardial infarction 809405294 Active 2019 [facility] 0 13:05:38 Chronic obstructive pulmonary disease 28880545 Active 2019 [facility] 0 13:05:44 Monitoring of pacemaker 65263921 Active 2019 [facility] 0 13:05:52 Congestive heart failure 66586500 Active 2019 Salbador Tinajero MD [address] [place], [address], [facility] 0 16:05:08 Coronary arteriosclero sis 15555064 Active 2019 [facility] 0 13:07:39 Pulmonary embolism 07757937 Active 2019 [facility] 0 13:07:49 Kidney disease 90144135 Active 2019 [facility] 0 13:08:00 Type 2 diabetes mellitus 96441042 Active 2019 [facility] 0 13:11:48 Calcification of breast 720337880 Active 2019 Needs a repeat MAMMO in December 2019 Salbador Tinajero MD [address] [place], [address], [facility] 0 16:34:02 Problem Notes None recorded. Procedures Surgical History Date Name Laterality Status Provider Name and Address Organization Details Recorded Time Hernia Repair completed [facility] 08/23/2019 13:08:59 Tubal Ligation completed [facility] 08/23/2019 13:09:08 Appendectomy completed [facility] 08/23/2019 13:09:15 Gallbladder Surgery completed [facility] 08/23/2019 13:09:22 Pacemaker completed [facility] 08/23/2019 13:09:32 Imaging Results None recorded. Procedure Notes None recorded. Medical Equipment None Reported. Allergies Allergen ID Allergen Name Allergen Category Reaction Reaction Severity Criticality Documentation Date Start Date Code Code System Note Provider Name and Address Organization Details Recorded Time 65767 Bactrim medicatio n Not available Not available Not available 08/23/2019 65217 9 RxNorm [facility] 0 11:49:48 82855 Medicinal product containin g cephalosp arturo and acting as antibacte rial agent (product) medicatio n Not available Not available Not available 08/23/2019 43457 9009 SNOMED [facility] 0 11:49:57 56764 naproxen medicatio n Not available Not available Not available 08/23/2019 7258 RxNorm [facility] 0 11:50:04 88873 Substance with sulfonami de structure and antibacte rial mechanism of action (substanc e) medicatio n Not available Not available Not available 08/23/2019 30818 8003 SNOMED [facility] 0 11:50:21 Medications Name Sig Start [...] Not Available No t Available [employer] [place] 32 gauge x active Not Available Not [...] /min 97 % 97 % 37 kg/m2 40494.8 1 g 124 mm[Hg] 82 mm[Hg] [facility] 0 15:26:42 Date Recorded Body height Heart rate Oxygen saturation Oxygen saturation in Arterial blood by Pulse oximetry Systolic blood pressure Diastolic blood pressure Provider Name and Address Organization Details Last Updated DateTime 0 160.02 cm 77 /min 97 % 97 % 124 mm[Hg] 74 mm[Hg] [facility] 0 15:04:28 Date Recorded Body height Provider Name an d Address Organization Details Last Updated DateTime 12/07/2019 160.02 cm [facility] 12/07/2019 15:33:29 Date Recorded Body height Provider Name an d Address Organization Details Last Updated DateTime 12/18/2019 [facility] 09:25:05 Date Recorded Body height Provider Name an d Address Organization Details Last Updated DateTime 12/19/2019 160.02 cm [facility] 12/19/2019 15:32:06 Social History Question Answer Notes LastModified by Organizat ion Details LastModified Time Tobacco Smoking Status Never Smoker [facility] 08/23/2019 13:09:59 Do You Have [...] Organization Details Recorded Time Tdap 0 completed [facility] 08/23/2019 13:02:39 Pneumococcal conjugate PCV 13 8 completed [facility] 08/23/2019 13:03:06 pneumococcal polysaccharide PPV23 2 completed [facility] 08/23/2019 13:03:27 pneumococcal, unspecified formulation 6 completed [facility] 08/23/2019 13:03:44 zoster, unspecified formulation 6 completed [facility] 08/23/2019 13:03:58 Past Encounters Encounter ID Performer Location Encounter Start Date Encounter Closed Date Diagnosis/Indication Diagnosis SNOMED-CT Code Diagnosis ICD10 Code Diagnosis Note [id number] Salbador Tinajero MD [facility] [address] [place] [phone] 09/10/2019 14:55:38 09/10/2019 16:15:08 Coronary arteriosclerosis 84447909 I25.10 Has hx of coronary artery disease, reports having 4 stents placed, most recent was 5 years ago. treated at [facility]. Per note review and patient report, pacemaker was placed 2 years ago. Denies active chest pain at this time. Type 2 gilda betes mellitus 53632635 E11.42 Hemoglobin A1c in December 2018 was 11. Checking her blood sugars frequently , noted blood sugars to be in the 300s-400. -Reports history of neuropathy on the lower extremitie s, denies calluses, wounds -Last dilated eye exam 2 years ago Anxiety 44253969 F41.9 Patient reporting fair control of anxiety but still has episodes of insomnia. Essential hypertension 34400078 I10 BP has been well controlled . Denies chest pain, shortness of breath, dyspnea on exertion, blurred vision. Dyslipidemia 229456787 E 78.5 On atorvastat in 40 mg daily. Gastroesop hageal reflux disease 829861844 K21.9 On omeprazole , reports good symptomati c control on the medication . Depressive disorder 5803 6163 F32.9 Has history of depression . Says symptoms are well controlled . Denies suicidal ideations or passive thoughts of . Does not follow with counseling and does not wish to establish care with counseling . Iron deficiency 77896041 E61.1 Reports a history of iron deficiency anemia, currently on iron supplement ation. Viral screening 54929006 4 Z11.59 [id number] Salbador Tinajero MD [facility] [address] [place] [phone] 10/08/2019 14:47:01 10/08/2019 15:35:33 Type 2 diabetes mellitus 95385978 E11.42 Hemoglobin A1c in December 2018 was [...] discharge summary is not available. Recurrent falls 89763775 2 R29.6 Patient reports 2 episodes of mechanical falls when she slipped on the ice. Congestive heart failure 41886165 I50.9 Patient was started on losartan and metoprolol succinate at discharge. Amina lim, I do not have discharge summary available for review. She has an appointmen t scheduled with cardiology in October. Fatigue [id number] R53.83 She reporting fatigue and malaise. She says that 2 sisters have diagnosis of hypothyroi dism. Coronary arteriosclerosis [id number] I25.10 On her last visit, she reported hx of coronary artery disease, reports having 4 stents placed, most recent was 5 years ago, treated in [facility]. Per note review and patient report, pacemaker was placed 2 years ago. She presented to the emergency room on 09/24 for acute onset of chest pain and was transferre d [place] [facility] [place] and had cardiac catheteriz ation. According to the patient, no new stents were placed. She had medication adjusted at discharge and was placed on ARB. She used to be on bisoprolol and was switched to metoprolol succinate. no active chest pain at this time. She was instructed to call 911/go to ED if develops acute chest pain. [id number] Jose Combs MD [facility] [address] [place] [address] [phone] 12/07/2019 15:32:37 12/07/2019 16:17:08 Type 2 diabetes mellitus [id number] E11.69 [id number] Sara Del Castillo NP [facility] [address] [place] [address] [phone] 12/18/2019 08:14:27 12/18/2019 10:11:48 Vaginitis [id number] N76.0 Advised pt to call if symptoms do not resolve with treatment. [id number] Salbador Tinajero MD [facility] [address] [place] [address] [phone] 12/19/2019 08:14:26 12/20/2019 08:00:46 Type 2 diabetes mellitus [id number] E11.42 Hemoglobin A1c 10.1%. Will increase dose [...] in 3 months. Pain of hip region 55766 002 M25.559 6 weeks of mild to [...] 1 [employer] (MEDICARE REPLACEMENT/A DVANTAGE - HMO) [id number] Deanna Chacon [id number] Deanna Chacon Notes Date Note Type Note Provider Name and Address Organization Details Recorded Time 09/10/2019 text/html 68-year-old fema le with past medical history of type 2 diabetes, hypertension, COPD not on oxygen, heart failure, history of coronary artery disease, [place] x2 s/p stent placement with pacemaker placed [...] dizziness, lightheadedness or diaphoresis. No syncopal episodes. Hyperlipidemia on atorvastatin CAD patient has history of NSTEMI documented in notes from prior PCP. She says last heart attack was about 5 years ago. She has a pacemaker implanted 2 years ago. 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 Hypertension patient reports good control of hypertension on current medication. She denies chest pain, shortness of breath, dyspnea on exertion, orthopnea, PND. COPD not on oxygen. She is on inhalers, denies shortness of breath, cough or wheezing. Denies any recent episodes of exacerbation. GERD says and omeprazole provides appropriate control of symptoms. Salbador Tinajero MD [address] [place] [address], [phone], [facility] 09/10/2019 16:34:18 10/08/2019 text/html This is [...] of chest pain. She was transferred [place] [facility] [place] and had cardiac cath done on 09/24/19. Unfortunately, the discharge summary is not available and information is gathered from [facility] admission visit. 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 She has an appointment scheduled with cardiology on November 08 at [facility]. She also reports that she [...] exertion. She has ongoing lower extremity edema. [facility] is visiting twice weekly for diabetes [...] pain or abdominal pain. Salbador Tinajero MD [address] [place] [address], [phone], [facility] 10/08/2019 16:12:10 12/18/2019 text/html This patient [...] discussed. Patient/guardian was informed how to access [id number] care in the event of an emergency. [...] 4 months ago. Sara Del Castillo NP [address] [place] [address], [phone], [facility] 12/18/2019 09:46:05 12/19/2019 text/html This patient [...] discussed. Patient was informed how to access [id number] care in the event of an emergency. [...] any skin changes, edema. Salbador Tinajero MD [address] [place] [address], [phone], [facility] 12/19/2019 18:08:01 OBGyn Episode No OBEpisode recorded.
--- OUTSIDE RECORDS SUMMARY | 2025-03-04 20:00 | XMS_ITS | Clinical Summary ---
Author Organization Unknown Care Team Providers Care Application Developer Name Role Phone LATOYA MARTINEZ, SYLVAIN Unavailable Unavailable REY GRANT, [place] Unavailable Unavailable JOSUE RN, INGE Unavailable Unavailable Payers Payer Name Policy Type Policy Number Effective Date Expira tion Date [facility] [place] [id number] [place] [id number] ON DEMAND MEDICARE - [place] IN BILLING - [place]N [id number] Problems Condition Name Condition Details Condition Category Status Onset Date Resolution Date Last Treatment Date Treating Clinician Comments MAJOR DEPRESSIVE DISORDER, RECURRENT, MILD Active 01-09 00:00: 00 MAJOR DEPRESSIVE DISORDER, SINGLE EPISODE, MILD Active 12-31 00:00: 00 OPIOID ABUSE, UNCOMPLICATE D Active 03-03 00:00: 00 ACUTE KIDNEY FAILURE, UNSPECIFIED Active 01-08 00:00: 00 TYPE 2 DIABETES MELLITUS WITH DIABETIC NEUROPATHY, UNSP Active 01-01 00:00: 00 TYPE 2 DIABETES MELLITUS W DIABETIC CHRONIC KIDNEY DISEASE Active 01-01 00:00: 00 HYPERTENSIVE CHRONIC KIDNEY DISEASE W STG 1-4/UNSP CHR KDNY Active 01-01 00:00: 00 CHRONIC KIDNEY DISEASE, STAGE 3 UNSPECIFIED Active 01-01 00:00: 00 CONSTIPATION , UNSPECIFIED Active 01-01 00:00: 00 ATHSCL HEART DISEASE OF [place] CORONARY ARTERY W/O ANG PCTRS Active 01-01 00:00: 00 UNSPECIFIED SYSTOLIC (CONGESTIVE) HEART FAILURE Active 01-01 00:00: 00 Allergies, Adverse Reactions, Alerts Allergy Name Allergy Type Status Severity Reaction(s) Onset Date Inactive Date Treating Clinician Comments OXYCODONE HYDROCHLORID E Propensity to adverse reactions Active 01-05 10:21: 33 SULFA (SULFONAMIDE ANTIBIOTICS) Propensity to adverse reactions Active 01-05 10:22: 13 NAPROXEN SODIUM Propensity to adverse reactions Active 01-05 10:22: 38 CEPHALASPORI NS Propensity to adverse reactions Active 01-07 07:57: 16 HYDROCODONE Propensity to adverse reactions Active 01-08 12:13: 22 LISINOPRIL Propensity to adverse reactions Active 01-08 12:13: 22 Medications Ordered Medication Name Filled Medication Name Start Date Stop Date Current Medication? Ordering Clinician Indication Dosage Frequency Signature (SIG) Comments Components Alcohol Pads 2020-08 00:00: 00 09-05 23:59 :00 No [id number] Per instruc tions TWO (2) TIMES A DAY TO 3 (THREE) TIMES A DAY Per instructio ns TWO (2) TIMES A DAY TO 3 (THREE) TIMES A DAY (route: topical) Med Classific ation: Antisepti cs and Disinfect ants Eliquis 5 mg tablet 03-11 00:00: 00 01-01 23:59 :00 No [id number] 1 tablet TWO (2) TIMES A DAY 1 tablet TWO (2) TIMES A DAY (route: oral) Med Classific ation: Hematolog ical Agents ferrous sulfate 324 mg (65 mg iron) tablet,jessica yed release 2020-08 00:00: 00 03-11 23:59 :00 No [id number] Per instruc tions DAILY Per instructio ns DAILY (route: oral) Med Classific ation: Electroly te Balance-N utritiona l Products gabapentin 400 mg capsule 2020-08 00:00: 00 03-11 23:59 :00 No [id number] Per instruc tions 3 (THREE) TIMES A DAY Per instructio ns 3 (THREE) TIMES A DAY (route: oral) Med Classific ation: Central Nervous System Agents metoprolol succinate ER 25 mg tablet,exte nded release 24 hr 2020-08 00:00: 00 03-11 23:59 :00 No [id number] Per instruc tions DAILY Per instructio ns DAILY (route: oral) Med Classific ation: Cardiovas cular Therapy Agents magnesium oxide 400 mg (241.3 mg magnesium) tablet 2020-08 00:00: 00 03-11 23:59 :00 No [id number] Per instruc tions DAILY Per instructio ns DAILY (route: oral) Med Classific ation: Electroly te Balance-N utritiona l Products atorvastati n 40 mg tablet 2020-08 00:00: 00 03-11 23:59 :00 No [id number] Per instruc tions DAILY Per instructio ns DAILY (route: oral) Med Classific ation: Cardiovas cular Therapy Agents isosorbide dinitrate 30 mg tablet 2020-08 00:00: 00 03-11 23:59 :00 No [id number] Per instruc tions TWO (2) TIMES A DAY Per instructio ns TWO (2) TIMES A DAY (route: oral) Med Classific ation: Cardiovas cular Therapy Agents clopidogrel 75 mg tablet 03-11 00:00: 00 01-01 23:59 :00 No [id number] 1 tablet DAILY 1 tablet DAILY (route: oral) Med Classific ation: Hematolog ical Agents torsemide 20 mg tablet 2020-08 00:00: 00 03-11 23:59 :00 No [id number] Per instruc tions DAILY Per instructio ns DAILY (route: oral) Med Classific ation: Cardiovas cular Therapy Agents pantoprazol e 20 mg tablet,jessica yed release 2020-08 00:00: 00 03-11 23:59 :00 No [id number] Per instruc tions DAILY Per instructio ns DAILY (route: oral) Med Classific ation: Gastroint estinal Therapy Agents Lantus Solostar U-100 Insulin 100 unit/mL (3 mL) subcutaneou s pen 2020-08 0 00:00: 00 03-11 23:59 :00 No [id number] Per instruc tions DAILY Per instructio ns DAILY (route: subcutaneo us) Med Classific ation: Endocrine acetaminoph en 325 mg tablet 03-11 00:00: 00 01-01 23:59 :00 No [id number] 2 tablet 3 TIMES DAILY 2 tablet 3 TIMES DAILY (route: oral) Med Classific ation: Analgesic , Anti-infl ammatory or Antipyret ic atorvastati n 80 mg tablet 03-11 00:00: 00 01-01 23:59 :00 No [id number] 1 tablet BEDTIME 1 tablet BEDTIME (route: oral) Med Classific ation: Cardiovas cular Therapy Agents duloxetine 20 mg capsule,del ayed release 03-11 00:00: 00 01-01 23:59 :00 No [id number] 2 capsule DAILY 2 capsule DAILY (route: oral) Med Classific ation: Central Nervous System Agents ferrous sulfate 325 mg (65 mg iron) tablet 03-11 00:00: 00 01-01 23:59 :00 No [id number] 1 tablet DAILY 1 tablet DAILY (route: oral) Med Classific ation: Electroly te Balance-N utritiona l Products furosemide 20 mg tablet 03-11 00:00: 00 04-19 23:59 :00 No [id number] 1 tablet DAILY 1 tablet DAILY (route: oral) Med Classific ation: Cardiovas cular Therapy Agents gabapentin 100 mg capsule 03-11 00:00: 00 01-01 23:59 :00 No [id number] 2 capsule 3 TIMES DAILY 2 capsule 3 TIMES DAILY (route: oral) Med Classific ation: Central Nervous System Agents Lantus Solostar U-100 Insulin 100 unit/mL (3 mL) subcutaneou s pen 03-11 00:00: 00 01-01 23:59 :00 No [id number] 20 unit BEDTIME 20 unit BEDTIME (route: subcutaneo ) Med Classific ation: Endocrine melatonin 5 mg capsule 03-11 00:00: 00 01-01 23:59 :00 No [id number] 1 capsule DAILY 1 capsule DAILY (route: oral) Med Classific ation: Central Nervous System Agents metoprolol succinate ER 50 mg tablet,exte nded release 24 hr 03-11 00:00: 00 01-01 23:59 :00 No [id number] 1 tablet DAILY 1 tablet DAILY (route: oral) Med Classific ation: Cardiovas cular Therapy Agents mirtazapine 15 mg disintegrat ing tablet 03-11 00:00: 00 01-01 23:59 :00 No [id number] 1 tablet BEDTIME 1 tablet BEDTIME (route: oral) Med Classific ation: Central Nervous System Agents multivitami n tablet 03-11 00:00: 00 01-01 23:59 :00 No [id number] 1 tablet DAILY 1 tablet DAILY (route: oral) Med Classific ation: Electroly te Balance-N utritiona l Products Nitrostat 0.4 mg sublingual tablet 03-11 00:00: 00 01-01 23:59 :00 No [id number] 1 tablet NEEDED 1 tablet NEEDED (route: sublingual ) Med Classific ation: Cardiovas cular Therapy Agents pantoprazol e 40 mg tablet,jessica yed release 03-11 00:00: 00 01-01 23:59 :00 No [id number] 1 tablet DAILY 1 tablet DAILY (route: oral) Med Classific ation: Gastroint estinal Therapy Agents quetiapine 200 mg tablet 03-11 00:00: 00 11-02 23:59 :00 No [id number] 1 tablet BEDTIME 1 tablet BEDTIME (route: oral) Med Classific ation: Central Nervous System Agents Senna Laxative 8.6 mg tablet 03-11 00:00: 00 01-01 23:59 :00 No [id number] 2 tablet DAILY 2 tablet DAILY (route: oral) Med Classific ation: Gastroint estinal Therapy Agents valsartan 40 mg tablet 03-11 00:00: 00 01-01 23:59 :00 No [id number] 1 tablet DAILY 1 tablet DAILY (route: oral) Med Classific ation: Cardiovas cular Therapy Agents Lasix 40 mg tablet 04-19 00:00: 00 05-09 23:59 :00 No [id number] 1 tablet DAILY 1 tablet DAILY (route: oral) Med Classific ation: Cardiovas cular Therapy Agents Lasix 20 mg tablet 05-10 00:00: 00 11-02 23:59 :00 No [id number] 1 tablet DAILY 1 tablet DAILY (route: oral) Med Classific ation: Cardiovas cular Therapy Agents Seroquel 100 mg tablet 05-10 00:00: 00 11-02 23:59 :00 No [id number] 1 tablet BEDTIME 1 tablet BEDTIME (route: oral) Med Classific ation: Central Nervous System Agents Jardiance 10 mg tablet 2022-08 00:00: 00 01-01 23:59 :00 No [id number] 1 tablet DAILY 1 tablet DAILY (route: oral) Med Classific ation: Endocrine Seroquel 100 mg tablet 11-05 00:00: 00 01-01 23:59 :00 No [id number] 3 tablet BEDTIME 3 tablet BEDTIME (route: oral) Med Classific ation: Central Nervous System Agents torsemide 20 mg tablet 11-05 00:00: 00 01-01 23:59 :00 No [id number] 1 tablet DAILY 1 tablet DAILY (route: oral) Med Classific ation: Cardiovas cular Therapy Agents isosorbide mononitrate ER 60 mg tablet,exte nded release 24 hr 2023-08 00:00: 00 01-01 23:59 :00 No [id number] 1 tablet DAILY 1 tablet DAILY (route: oral) Med Classific ation: Cardiovas cular Therapy Agents acetaminoph en 325 mg capsule 01-05 00:00: 00 Yes [id number] 3 capsule 3 TIMES DAILY 3 capsule 3 TIMES DAILY (route: oral) Med Classific ation: Analgesic , Anti-infl ammatory or Antipyret ic atorvastati n 80 mg tablet 01-05 00:00: 00 Yes [id number] 1 tablet EVERY AM 1 tablet EVERY AM (route: oral) Med Classific ation: Cardiovas cular Therapy Agents carbidopa 25 mg-levodopa 100 mg tablet 01-05 00:00: 00 Yes [id number] 1 tablet 2 TIMES DAILY 1 tablet 2 TIMES DAILY (route: oral) Med Classific ation: Central Nervous System Agents clopidogrel 75 mg tablet 01-05 00:00: 00 Yes [id number] 1 tablet EVERY AM 1 tablet EVERY AM (route: oral) Med Classific ation: Hematolog ical Agents duloxetine 20 mg capsule,del ayed release 01-05 00:00: 00 Yes [id number] 2 capsule EVERY AM 2 capsule EVERY AM (route: oral) Med Classific ation: Central Nervous System Agents Eliquis 5 mg tablet 01-05 00:00: 00 Yes [id number] 1 tablet 2 TIMES DAILY 1 tablet 2 TIMES DAILY (route: oral) Med Classific ation: Hematolog ical Agents ferrous sulfate 325 mg (65 mg iron) tablet 01-05 00:00: 00 Yes [id number] 1 tablet EVERY AM 1 tablet EVERY AM (route: oral) Med Classific ation: Electroly te Balance-N utritiona l Products gabapentin 100 mg capsule 01-05 00:00: 00 Yes [id number] 2 capsule 3 TIMES DAILY 2 capsule 3 TIMES DAILY (route: oral) Med Classific ation: Central Nervous System Agents Humalog KwikPen (U-100) Insulin 100 unit/mL subcutaneou s 01-05 00:00: 00 Yes [id number] Per instruc tions 3 TIMES DAILY Per instructio ns 3 TIMES DAILY (route: subcutaneo us) Med Classific ation: Endocrine Jardiance 10 mg tablet 01-05 00:00: 00 Yes [id number] 1 tablet EVERY AM 1 tablet EVERY AM (route: oral) Med Classific ation: Endocrine melatonin 5 mg capsule 01-05 00:00: 00 Yes [id number] 1 capsule BEDTIME 1 capsule BEDTIME (route: oral) Med Classific ation: Central Nervous System Agents metoprolol succinate ER 25 mg tablet,exte nded release 24 hr 01-05 00:00: 00 Yes [id number] 1 tablet EVERY AM 1 tablet EVERY AM (route: oral) Med Classific ation: Cardiovas cular Therapy Agents Miralax 17 gram oral powder packet 01-05 00:00: 00 Yes [id number] 1 packet EVERY AM 1 packet EVERY AM (route: oral) Med Classific ation: Gastroint estinal Therapy Agents mirtazapine 15 mg tablet 01-05 00:00: 00 Yes [id number] 1 tablet EVERY AM 1 tablet EVERY AM (route: oral) Med Classific ation: Central Nervous System Agents Multiple Vitamins tablet 01-05 00:00: 00 Yes [id number] 1 tablet EVERY AM 1 tablet EVERY AM (route: oral) Med Classific ation: Electroly te Balance-N utritiona l Products omeprazole 20 mg capsule,del ayed release 01-05 00:00: 00 Yes [id number] 2 capsule EVERY AM 2 capsule EVERY AM (route: oral) Med Classific ation: Gastroint estinal Therapy Agents quetiapine 100 mg tablet 01-05 00:00: 00 Yes [id number] 2 tablet BEDTIME 2 tablet BEDTIME (route: oral) Med Classific ation: Central Nervous System Agents Semglee (insulin glargine-yf gn) 100 unit/mL subcutaneou s solution 01-05 00:00: 00 Yes [id number] 65 unit BEDTIME 65 unit BEDTIME (route: subcutaneo us) Med Classific ation: Endocrine torsemide 20 mg tablet 01-05 00:00: 00 Yes 1 tablet EVERY AM 1 tablet EVERY AM (route: oral) Med Classific ation: Cardiovas cular Therapy Agents valsartan 40 mg tablet 01-05 00:00: 00 Yes 1 tablet EVERY AM 1 tablet EVERY AM (route: oral) Med Classific ation: Cardiovas cular Therapy Agents Vital Signs Vital Name Observation Time Observation Value Commen ts Temperature 2025-02-18 09:58:00.000 97.6 [degF] Temperature 2025-02-15 08:35:00.000 97.6 [degF] Temperature 2025-02-13 12:12:00.000 97.6 [degF] Temperature 2025-02-13 08:45:00.000 97.9 [degF] Temperature 2025-02-11 09:26:00.000 97.9 [degF] Temperature 2025-02-08 11:11:00.000 97.2 [degF] Temperature 2025-02-08 08:58:00.000 97.9 [degF] Temperature 2025-02-06 13:28:00.000 98.1 [degF] Temperature 2025-02-06 08:31:00.000 97.9 [degF] Temperature 2025-02-04 09:20:00.000 97.9 [degF] Temperature 2025-02-01 11:06:00.000 97.6 [degF] Temperature 2025-02-01 09:45:00.000 97.9 [degF] Temperature 2025-01-30 11:25:00.000 97.6 [degF] Temperature 2025-01-30 09:22:00.000 98.2 [degF] Temperature 2025-01-28 10:04:00.000 97.6 [degF] Temperature 2025-01-25 10:07:00.000 97.4 [degF] Temperature 2025-01-25 08:27:00.000 97.9 [degF] Temperature 2025-01-23 09:33:00.000 97.9 [degF] Temperature 2025-01-22 13:34:00.000 97.4 [degF] Temperature 2025-01-21 07:44:00.000 97.9 [degF] Temperature 2025-01-18 08:29:00.000 97.9 [degF] Temperature 2025-01-17 14:01:00.000 97.7 [degF] Temperature 2025-01-16 13:20:00.000 97.8 [degF] Temperature 2025-01-16 10:35:00.000 97.4 [degF] Temperature 2025-01-15 13:11:00.000 97.6 [degF] Temperature 2025-01-14 08:46:00.000 97.9 [degF] Temperature 2025-01-11 14:30:00.000 97.1 [degF] Temperature 2025-01-11 08:24:00.000 97.8 [degF] Temperature 2025-01-08 10:10:00.000 98.6 [degF] Temperature 2025-01-05 11:39:00.000 98.6 [degF] BMI (%) 2025-01-05 10:59:16.000 37 kg/m2 Height 2025-01-05 10:59:08.000 63 [in_us] Pulse 2025-02-18 09:58:00.000 76 /min Pulse 2025-02-15 08:35:00.000 76 /min Pulse 2025-02-13 12:12:00.000 74 /min Pulse 2025-02-13 08:45:00.000 78 /min Pulse 2025-02-11 09:26:00.000 75 /min Pulse 2025-02-08 11:11:00.000 78 /min Pulse 2025-02-08 08:58:00.000 76 /min Pulse 2025-02-06 13:28:00.000 70 /min Pulse 2025-02-06 08:31:00.000 78 /min Pulse 2025-02-04 09:20:00.000 78 /min Pulse 2025-02-01 11:06:00.000 60 /min Pulse 2025-02-01 09:45:00.000 79 /min Pulse 2025-01-30 11:25:00.000 80 /min Pulse 2025-01-30 09:22:00.000 79 /min Pulse 2025-01-28 10:04:00.000 76 /min Pulse 2025-01-25 10:07:00.000 74 /min Pulse 2025-01-25 08:27:00.000 76 /min Pulse 2025-01-23 09:33:00.000 76 /min Pulse 2025-01-22 13:34:00.000 72 /min Pulse 2025-01-21 07:44:00.000 74 /min Pulse 2025-01-18 08:29:00.000 73 /min Pulse 2025-01-17 14:01:00.000 99 /min Pulse 2025-01-16 13:20:00.000 75 /min Pulse 2025-01-16 10:35:00.000 64 /min Pulse 2025-01-15 13:11:00.000 66 /min Pulse 2025-01-14 08:46:00.000 67 /min Pulse 2025-01-11 14:30:00.000 62 /min Pulse 2025-01-11 08:24:00.000 78 /min Pulse 2025-01-08 10:10:00.000 60 /min Pulse 2025-01-05 11:39:00.000 60 /min O2 Saturation (%) 2025-02-18 09:59:00.000 98 % O2 Saturation (%) 2025-02-15 08:36:00.000 97 % O2 Saturation (%) 2025-02-13 08:46:00.000 98 % O2 Saturation (%) 2025-02-11 09:26:00.000 97 % O2 Saturation (%) 2025-02-08 08:58:00.000 97 % O2 Saturation (%) 2025-02-06 08:32:00.000 98 % O2 Saturation (%) 2025-02-04 09:21:00.000 97 % O2 Saturation (%) 2025-02-01 09:45:00.000 98 % O2 Saturation (%) 2025-01-30 09:23:00.000 97 % O2 Saturation (%) 2025-01-28 10:05:00.000 97 % O2 Saturation (%) 2025-01-25 08:28:00.000 98 % O2 Saturation (%) 2025-01-23 09:34:00.000 97 % O2 Saturation (%) 2025-01-21 07:50:00.000 99 % O2 Saturation (%) 2025-01-18 08:29:00.000 96 % O2 Saturation (%) 2025-01-14 08:46:00.000 96 % O2 Saturation (%) 2025-01-11 08:44:00.000 97 % O2 Saturation (%) 2025-01-08 10:11:00.000 98 % O2 Saturation (%) 2025-01-05 11:39:00.000 98 % Respirations 2025-02-18 09:58:00.000 18 /min Respirations 2025-02-15 08:35:00.000 20 /min Respirations 2025-02-13 12:12:00.000 18 /min Respirations 2025-02-13 08:45:00.000 20 /min Respirations 2025-02-11 09:26:00.000 20 /min Respirations 2025-02-08 11:11:00.000 16 /min Respirations 2025-02-08 08:58:00.000 20 /min Respirations 2025-02-06 13:28:00.000 18 /min Respirations 2025-02-06 08:31:00.000 20 /min Respirations 2025-02-04 09:20:00.000 20 /min Respirations 2025-02-01 11:06:00.000 18 /min Respirations 2025-02-01 09:45:00.000 20 /min Respirations 2025-01-30 11:25:00.000 18 /min Respirations 2025-01-30 09:22:00.000 20 /min Respirations 2025-01-28 10:04:00.000 20 /min Respirations 2025-01-25 10:07:00.000 18 /min Respirations 2025-01-25 08:27:00.000 20 /min Respirations 2025-01-23 09:33:00.000 20 /min Respirations 2025-01-22 13:34:00.000 18 /min Respirations 2025-01-21 07:44:00.000 20 /min Respirations 2025-01-18 08:29:00.000 18 /min Respirations 2025-01-17 14:01:00.000 18 /min Respirations 2025-01-16 13:20:00.000 20 /min Respirations 2025-01-16 10:35:00.000 18 /min Respirations 2025-01-15 13:11:00.000 18 /min Respirations 2025-01-14 08:46:00.000 20 /min Respirations 2025-01-11 14:30:00.000 16 /min Respirations 2025-01-11 08:24:00.000 20 /min Respirations 2025-01-08 10:10:00.000 18 /min Respirations 2025-01-05 11:39:00.000 18 /min Weight (lbs) 2025-02-18 09:59:00.000 214 [lb_av] Weight (lbs) 2025-02-15 08:36:00.000 216 [lb_av] Weight (lbs) 2025-02-13 08:46:00.000 216 [lb_av] Weight (lbs) 2025-02-11 09:26:00.000 216 [lb_av] Weight (lbs) 2025-02-08 08:58:00.000 216 [lb_av] Weight (lbs) 2025-02-06 08:32:00.000 215 [lb_av] Weight (lbs) 2025-02-04 09:21:00.000 215 [lb_av] Weight (lbs) 2025-02-01 09:45:00.000 214 [lb_av] Weight (lbs) 2025-01-30 09:23:00.000 214 [lb_av] Weight (lbs) 2025-01-28 10:05:00.000 215 [lb_av] Weight (lbs) 2025-01-25 08:28:00.000 213 [lb_av] Weight (lbs) 2025-01-23 09:34:00.000 214 [lb_av] Weight (lbs) 2025-01-21 07:50:00.000 213 [lb_av] Weight (lbs) 2025-01-18 08:29:00.000 213 [lb_av] Weight (lbs) 2025-01-14 08:46:00.000 213 [lb_av] Weight (lbs) 2025-01-11 08:44:00.000 215 [lb_av] Weight (lbs) 2025-01-05 10:59:16.000 213 [lb_av] Systolic Blood Pressure 2025-02-18 09:58:00.000 107 mm [Hg] Systolic Blood Pressure 2025-02-15 08:35:00.000 128 mm [Hg] Systolic Blood Pressure 2025-02-13 12:12:00.000 124 mm [Hg] Systolic Blood Pressure 2025-02-13 08:45:00.000 124 mm [Hg] Systolic Blood Pressure 2025-02-11 09:26:00.000 116 mm [Hg] Systolic Blood Pressure 2025-02-08 11:11:00.000 88 mm[ Hg] Systolic Blood Pressure 2025-02-08 08:58:00.000 127 mm [Hg] Systolic Blood Pressure 2025-02-06 13:28:00.000 122 mm [Hg] Systolic Blood Pressure 2025-02-06 08:31:00.000 125 mm [Hg] Systolic Blood Pressure 2025-02-04 09:20:00.000 129 mm [Hg] Systolic Blood Pressure 2025-02-01 11:06:00.000 118 mm [Hg] Systolic Blood Pressure 2025-02-01 09:45:00.000 116 mm [Hg] Systolic Blood Pressure 2025-01-30 11:25:00.000 128 mm [Hg] Systolic Blood Pressure 2025-01-30 09:22:00.000 106 mm [Hg] Systolic Blood Pressure 2025-01-28 10:04:00.000 134 mm [Hg] Systolic Blood Pressure 2025-01-25 10:07:00.000 124 mm [Hg] Systolic Blood Pressure 2025-01-25 08:27:00.000 127 mm [Hg] Systolic Blood Pressure 2025-01-23 09:33:00.000 128 mm [Hg] Systolic Blood Pressure 2025-01-22 13:34:00.000 122 mm [Hg] Systolic Blood Pressure 2025-01-21 07:44:00.000 128 mm [Hg] Systolic Blood Pressure 2025-01-18 08:55:00.000 128 mm [Hg] Systolic Blood Pressure 2025-01-17 14:01:00.000 110 mm [Hg] Systolic Blood Pressure 2025-01-16 13:20:00.000 128 mm [Hg] Systolic Blood Pressure 2025-01-16 10:35:00.000 108 mm [Hg] Systolic Blood Pressure 2025-01-15 13:11:00.000 106 mm [Hg] Systolic Blood Pressure 2025-01-14 08:46:00.000 105 mm [Hg] Systolic Blood Pressure 2025-01-13 14:51:00.000 107 mm [Hg] Systolic Blood Pressure 2025-01-11 14:30:00.000 92 mm[ Hg] Systolic Blood Pressure 2025-01-08 10:10:00.000 130 mm [Hg] Systolic Blood Pressure 2025-01-05 11:39:00.000 130 mm [Hg] Diastolic Blood Pressure 2025-02-18 09:58:00.000 69 mm [Hg] Diastolic Blood Pressure 2025-02-15 08:35:00.000 76 mm [Hg] Diastolic Blood Pressure 2025-02-13 12:12:00.000 72 mm [Hg] Diastolic Blood Pressure 2025-02-13 08:45:00.000 68 mm [Hg] Diastolic Blood Pressure 2025-02-11 09:26:00.000 76 mm [Hg] Diastolic Blood Pressure 2025-02-08 11:11:00.000 54 mm [Hg] Diastolic Blood Pressure 2025-02-08 08:58:00.000 74 mm [Hg] Diastolic Blood Pressure 2025-02-06 13:28:00.000 78 mm [Hg] Diastolic Blood Pressure 2025-02-06 08:31:00.000 73 mm [Hg] Diastolic Blood Pressure 2025-02-04 09:20:00.000 77 mm [Hg] Diastolic Blood Pressure 2025-02-01 11:06:00.000 78 mm [Hg] Diastolic Blood Pressure 2025-02-01 09:45:00.000 75 mm [Hg] Diastolic Blood Pressure 2025-01-30 11:25:00.000 80 mm [Hg] Diastolic Blood Pressure 2025-01-30 09:22:00.000 74 mm [Hg] Diastolic Blood Pressure 2025-01-28 10:04:00.000 78 mm [Hg] Diastolic Blood Pressure 2025-01-25 10:07:00.000 70 mm [Hg] Diastolic Blood Pressure 2025-01-25 08:27:00.000 74 mm [Hg] Diastolic Blood Pressure 2025-01-23 09:33:00.000 77 mm [Hg] Diastolic Blood Pressure 2025-01-22 13:34:00.000 72 mm [Hg] Diastolic Blood Pressure 2025-01-21 07:44:00.000 74 mm [Hg] Diastolic Blood Pressure 2025-01-18 08:55:00.000 75 mm [Hg] Diastolic Blood Pressure 2025-01-17 14:01:00.000 70 mm [Hg] Diastolic Blood Pressure 2025-01-16 13:20:00.000 76 mm [Hg] Diastolic Blood Pressure 2025-01-16 10:35:00.000 62 mm [Hg] Diastolic Blood Pressure 2025-01-15 13:11:00.000 64 mm [Hg] Diastolic Blood Pressure 2025-01-14 08:46:00.000 64 mm [Hg] Diastolic Blood Pressure 2025-01-13 14:51:00.000 65 mm [Hg] Diastolic Blood Pressure 2025-01-11 14:30:00.000 51 mm [Hg] Diastolic Blood Pressure 2025-01-08 10:10:00.000 70 mm [Hg] Diastolic Blood Pressure 2025-01-05 11:39:00.000 80 mm [Hg] Plan of Treatment Planned Activity [...] Scheduled Test SKILLED NU RSE TO PERFORM HOME SAFETY AND FALL ASSESSMENT AND PROVIDE INSTRUCTION TO IMPLEMENT HOME SAFETY AND FALL PREVENTION STRATEGIES. [code = SKILLED NURSE TO PERFORM HOME SAFETY AND FALL ASSESSMENT AND PROVIDE INSTRUCTION TO IMPLEMENT HOME SAFETY AND FALL PREVENTION STRATEGIES.] Future Scheduled Test SKILLED NU RSE FOR OBSERVATION AND ASSESSMENT OF PATIENTS PAIN LEVEL AND EFFECTIVENESS OF PAIN MANAGEMENT REGIMEN. SKILLED NURSE TO INSTRUCT PATIENT/CAREGIVER REGARDING PHARMACOLOGIC AND NON-PHARMACOLOGIC PAIN CONTROL MEASURES. SKILLED NURSE TO REPORT TO PHYSICIAN IF PAIN IS UNCONTROLLED WITH CURRENT PAIN MANAGEMENT REGIMEN. [code = SKILLED NURSE FOR OBSERVATION AND ASSESSMENT OF PATIENTS PAIN LEVEL AND EFFECTIVENESS OF PAIN MANAGEMENT REGIMEN. SKILLED NURSE TO INSTRUCT PATIENT/CAREGIVER REGARDING PHARMACOLOGIC AND NON-PHARMACOLOGIC PAIN CONTROL MEASURES. SKILLED NURSE TO REPORT TO PHYSICIAN IF PAIN IS UNCONTROLLED WITH CURRENT PAIN MANAGEMENT REGIMEN.] Future Scheduled Test SKILLED NU RSE TO ASSESS PATIENT'S SKIN INTEGRITY AND INSTRUCT PATIENT/CAREGIVER ON MEASURES TO PREVENT PRESSURE ULCERS. [code = SKILLED NURSE TO ASSESS PATIENT'S SKIN INTEGRITY AND INSTRUCT PATIENT/CAREGIVER ON MEASURES TO PREVENT PRESSURE ULCERS.] Future Scheduled Test PATIENT JULIEN S A RISK OF HOSPITALIZATION AND ED USE. SKILLED NURSE TO ESTABLISH SUPPORT MEASURES TO MINIMIZE RISK OF HOSPITALIZATION AND ED USE, AND INSTRUCT PATIENT/CAREGIVER ON METHODS TO REDUCE AVOIDABLE HOSPITALIZATION AND ED USE. [code = PATIENT HAS A RISK OF HOSPITALIZATION AND ED USE. SKILLED NURSE TO ESTABLISH SUPPORT MEASURES TO MINIMIZE RISK OF HOSPITALIZATION AND ED USE, AND INSTRUCT PATIENT/CAREGIVER ON METHODS TO REDUCE AVOIDABLE HOSPITALIZATION AND ED USE.] Future Scheduled Test SKILLED NU RSE TO PROVIDE INSTRUCTION TO PATIENT/CAREGIVER RELATED TO DISCHARGE PLANNING. [code = SKILLED NURSE TO PROVIDE INSTRUCTION TO PATIENT/CAREGIVER RELATED TO DISCHARGE PLANNING.] Future Scheduled Test SKILLED NU RSE TO O/A OF PATIENTS MENTAL/BEHAVIORAL STATUS, ASSESS VITAL SIGNS 3WK8 ALLOW 2 PRNS FOR MEDICATION MANAGEMENT. [code = SKILLED NURSE TO O/A OF PATIENTS MENTAL/BEHAVIORAL STATUS, ASSESS VITAL SIGNS 3WK8 ALLOW 2 PRNS FOR MEDICATION MANAGEMENT.] Future Scheduled Test SKILLED NU RSE WILL MAINTAIN SITUATIONAL AWARENESS FOR SAFETY AND WILL NOTIFY CLINICAL DOCUMENTATION LIAISON AND PHYSICIAN/PROVIDER WITH ANY CHANGE IN CONDITION. [code = SKILLED NURSE WILL MAINTAIN SITUATIONAL AWARENESS FOR SAFETY AND WILL NOTIFY CLINICAL DOCUMENTATION LIAISON AND PHYSICIAN/PROVIDER WITH ANY CHANGE IN CONDITION.] Future Scheduled Test SKILLED NU RSE FOR O/A OF GENERAL HEALTH STATUS OF PAIN, CARDIAC, RESPIRATORY, GASTROINTESTINAL, GENITOURINARY, SKIN, NEUROLOGIC, ENDOCRINE SYSTEMS TO IDENTIFY CHANGES ASSOCIATED WITH EXACERBATION FOR EARLY INTERVENTION OF COMPLICATIONS 3WK8 [code = SKILLED NURSE FOR O/A OF GENERAL HEALTH STATUS OF PAIN, CARDIAC, RESPIRATORY, GASTROINTESTINAL, GENITOURINARY, SKIN, NEUROLOGIC, ENDOCRINE SYSTEMS TO IDENTIFY CHANGES ASSOCIATED WITH EXACERBATION FOR EARLY INTERVENTION OF COMPLICATIONS 3WK8 ] Future Scheduled Test SKILLED NU RSE TO [...] PROBLEMS.] Future Scheduled Test SKILLED NU RSE FOR O/A OF SIGNS AND SYMPTOMS OF SUBSTANCE USE INCLUDING PARTICIPATION IN [facility] SPECIALTY PROGRAM. INSTRUCT PATIENT ON RELATED RISKS AND WILL NOTIFY TREATMENT TEAM NEEDED. [code = SKILLED NURSE FOR O/A OF SIGNS AND SYMPTOMS OF SUBSTANCE USE INCLUDING PARTICIPATION IN [facility] SPECIALTY PROGRAM. INSTRUCT PATIENT ON RELATED RISKS AND WILL NOTIFY TREATMENT TEAM NEEDED.] Future Scheduled Test SKILLED NU RSE FOR [...] SKILLED NU RSE FOR O/A OF CLIENT'S SOCIAL ISOLATION AND PROVIDE ASSISTANCE TO CLIENT IN DEVELOPMENT OF PLANNED ACTIVITIES [code = SKILLED NURSE FOR O/A OF CLIENT'S SOCIAL ISOLATION AND PROVIDE ASSISTANCE TO CLIENT IN DEVELOPMENT OF PLANNED ACTIVITIES] Future Scheduled Test SKILLED NU RSE FOR O/A, TEACHING, AND MANAGEMENT OF AFIB CHF [code = SKILLED NURSE FOR O/A, TEACHING, AND MANAGEMENT OF AFIB CHF] Future Scheduled Test SKILLED NU RSE TO PROVIDE TEACHING ON SIGNS AND SYMPTOMS AND MANAGEMENT OF HYPERTENSION. [code = SKILLED NURSE TO PROVIDE TEACHING ON SIGNS AND SYMPTOMS AND MANAGEMENT OF HYPERTENSION.] Future Scheduled Test SKILLED NU RSE FOR O/A, TEACHING AND SELF-MANAGEMENT RELATED TO HEART FAILURE. INSTRUCT PATIENT/CAREGIVER ON SIGNS AND SYMPTOMS OF EXACERBATION TO REPORT. WEIGHT TO BE OBTAINED 3 X WEEK SPECIFY FREQUENCY) AND WEIGHT GAIN OF 2 LBS OVERNIGHT OR 5 LBS IN 1 WEEK TO BE REPORTED TO PHYSICIAN. IF UNABLE TO WEIGH PATIENT, SKILLED NURSE TO OBTAIN MEASUREMENT OF ANKLES IN CM AT EACH VISIT AND REPORT AN INCREASE OF 1 CM TO PHYSICIAN. [code = SKILLED NURSE FOR O/A, TEACHING AND SELF-MANAGEMENT RELATED TO HEART FAILURE. INSTRUCT PATIENT/CAREGIVER ON SIGNS AND SYMPTOMS OF EXACERBATION TO REPORT. WEIGHT TO BE OBTAINED 3 X WEEK SPECIFY FREQUENCY) AND WEIGHT GAIN OF 2 LBS OVERNIGHT OR 5 LBS IN 1 WEEK TO BE REPORTED TO PHYSICIAN. IF UNABLE TO WEIGH PATIENT, SKILLED NURSE TO OBTAIN MEASUREMENT OF ANKLES IN CM AT EACH VISIT AND REPORT AN INCREASE OF 1 CM TO PHYSICIAN.] Future Scheduled Test SKILLED NU RSE TO PROVIDE TEACHING/REINFORCEMENT RELATED TO URINARY INCONTINENCE. [code = SKILLED NURSE TO PROVIDE TEACHING/REINFORCEMENT RELATED TO URINARY INCONTINENCE.] Future Scheduled Test SKILLED NU RSE FOR O/A AND TEACHING OF DIABETIC MANAGEMENT INCLUDING BLOOD SUGAR MONITORING/USE OF GLUCOMETER, DIABETIC DIET, LOWER EXTREMITY SKIN INSPECTION, PROPER SKIN/FOOT CARE, AND SIGNS AND SYMPTOMS HYPO/HYPERGLYCEMIA TO REPORT. [code = SKILLED NURSE FOR O/A AND TEACHING OF DIABETIC MANAGEMENT INCLUDING BLOOD SUGAR MONITORING/USE OF GLUCOMETER, DIABETIC DIET, LOWER EXTREMITY SKIN INSPECTION, PROPER SKIN/FOOT CARE, AND SIGNS AND SYMPTOMS HYPO/HYPERGLYCEMIA TO REPORT.] Future Scheduled Test SKILLED NU RSE FOR O/A OF SELF-CARE DEFICITS AND TO PROVIDE TEACHING RELATED TO SAFE PROVISION OF ADLS. [code = SKILLED NURSE FOR O/A OF SELF-CARE DEFICITS AND TO PROVIDE TEACHING RELATED TO SAFE PROVISION OF ADLS.] Future Scheduled Test PHYSICAL T HERAPIST TO EVALUATE PATIENT FORPT EVALUATION [code = PHYSICAL THERAPIST TO EVALUATE PATIENT FORPT EVALUATION ] Future Scheduled Test OCCUPATION AL THERAPIST TO EVALUATE PATIENT FOR OT EVALUATION [code = OCCUPATIONAL THERAPIST TO EVALUATE PATIENT FOR OT EVALUATION ] Goal Patient Goal - P ATIENT VERBALIZED GOAL OF IMPROVING MEDICATION MANAGEMENT AND GET STRONGER Goal Provider Goal - A PLAN OF CARE WILL BE ESTABLISHED THAT MEETS PATIENT'S CH[facility] NEEDS AND INCLUDES PATIENT GOAL FOR HOME HEALTH. Goal Provider Goal - PATIENT/CAREGIVER WILL VERBALIZE/DEMONSTRATE EFFECTIVE HOME SAFETY AND FALL PREVENTION STRATEGIES THROUGHOUT CERTIFICATION PERIOD. Goal Provider Goal - PATIENT/CAREGIVER WILL DEMONSTRATE UNDERSTANDING OF PHARMACOLOGIC AND NONPHARMACOLOGIC PAIN CONTROL MEASURES AND PATIENT WILL HAVE IMPROVEMENT IN PAIN INTERFERING WITH ACTIVITY EVIDENCED BY PAIN CONTROLLED AT LEVEL THAT IS ACCEPTABLE TO THE PATIENT BY END OF CERTIFICATION PERIOD. Goal Provider Goal - PATIENT/CAREGIVER WILL VERBALIZE UNDERSTANDING OF PRESSURE ULCER PREVENTION BY END OF THE EPISODE. Goal Provider Goal - PATIENT WILL HAVE SUPPORT MEASURES ESTABLISHED TO PREVENT HOSPITALIZATION AND ED USE AND PATIENT/CAREGIVER WILL VERBALIZE/DEMONSTRATE METHODS TO REDUCE AVOIDABLE HOSPITALIZATION AND ED USE BY END OF EPISODE. Goal Provider Goal - PATIENT/CAREGIVER WILL VERBALIZE UNDERSTANDING OF DISCHARGE PLANNING INSTRUCTIONS BY DATE OF DISCHARGE. Goal Provider Goal - ALTERED MENTAL/BEHAVIORAL STATUS WILL BE IDENTIFIED PROMPTLY AND INTERVENTION INITIATED QUICKLY TO MINIMIZE ASSOCIATED RISKS THROUGHOUT CERTIFICATION PERIOD. Goal Provider Goal - PATIENT WILL REMAIN SAFE IN THE COMMUNITY AND WILL BE FREE OF DANGER TO SELF AND OTHERS THROUGHOUT THE CERTIFICATION PERIOD. Goal Provider Goal - CHANGE IN GENERAL HEALTH STATUS WILL BE IDENTIFIED AND REPORTED TO PHYSICIAN FOR PROMPT INTERVENTION TO MINIMIZE ASSOCIATED RISKS THROUGHOUT CERTIFICATION PERIOD. Goal Provider Goal - PATIENT/CAREGIVER WILL VERBALIZE UNDERSTANDING OF EDUCATION PROVIDED ON MEDICATIONS BY THE END OF THE CERTIFICATION PERIOD. Goal Provider Goal - PATIENT WILL REMAIN SAFE IN COMMUNITY AND WILL ACKNOWLEDGE RELATED RISKS OF SUBSTANCE USE THROUGHOUT CERTIFICATION PERIOD. Goal Provider Goal - [...] PERIOD. Goal Provider Goal - PATIENT WILL DEMONSTRATE AN INCREASED INTEREST IN SOCIALIZATION AND ACTIVITIES BY THE END OF THE CERTIFICATION PERIOD. Goal Provider Goal - PATIENT/CAREGIVER WILL VERBALIZE/DEMONSTRATE MANAGEMENT OF AFIB CHF CARDIAC DISEASE PROCESS AND EXACERBATIONS WILL BE IDENTIFIED AND PROMPTLY REPORTED THROUGHOUT THE CERTIFICATION PERIOD. Goal Provider Goal - PATIENT/CAREGIVER WILL VERBALIZE SIGNS AND SYMPTOMS OF HYPERTENSION AND WILL BE ABLE TO DEMONSTRATE ABILITY TO MANAGE EXACERBATION BY END OF THE EPISODE. Goal Provider Goal - PATIENT/CAREGIVER WILL VERBALIZE/DEMONSTRATE KNOWLEDGE AND MANAGEMENT OF HEART FAILURE DISEASE PROCESS BY END OF EPISODE. Goal Provider Goal - PATIENT / CAREGIVER WILL VERBALIZE UNDERSTANDING OF EFFECTS OF URINARY INCONTINENCE BY THE END OF THE CERTIFICATION PERIOD. Goal Provider Goal - PATIENT/CAREGIVER WILL VERBALIZE/DEMONSTRATE KNOWLEDGE OF DIABETIC MANAGEMENT. CHANGES IN DIABETIC STATUS WILL BE IDENTIFIED AND REPORTED TO PHYSICIAN FOR PROMPT INTERVENTION THROUGHOUT THE CERTIFICATION PERIOD. Goal Provider Goal - PATIENT/CAREGIVER WILL VERBALIZE/DEMONSTRATE UNDERSTANDING OF SAFE PROVISION OF ADLS BY THE END OF THE CERTIFICATION PERIOD. Goal Provider Goal - A PHYSICAL THERAPY EVALUATION TO BE COMPLETED WITH RECOMMENDATIONS AND/OR WRITTEN PLAN OF TREATMENT ESTABLISHED FOR PHYSICIANS SIGNATURE. Goal Provider Goal - OCCUPATIONAL THERAPY EVALUATION TO BE COMPLETED WITH RECOMMENDATIONS AND WRITTEN PLAN OF TREATMENT ESTABLISHED FOR THE PHYSICIANS SIGNATURE. Progress Notes Progress Notes <paragraph>[Visit Date: 2024 by SHAN MORAN ([facility]) [facility] - OT]:</paragraph><paragraph>SKILLED OT FUNCTIONAL ASSESSMENT FOR 02-12-25. PATIENT UP AND READY FOR OT VISIT. REPORTS THAT SHE IS FEELING WELL AND HAS MINIMAL HIP PAIN TODAY. SITTING ON EOB WITHOUT SUPPORT. PATIENT INITIALLY SEEN FOR SKILLED OT SERVICES TO ASSESS ADL MGT AND UE FUNCTION DUE TO RECENT HOSP CHEST PAIN AND KIDNEY DYSFUNCTION. PATIENT STABILIZED AND THEN TRANSFERRED TO [facility]. PATIENT WAS THEN DISCHARGED BACK TO HOME.. PATIENT CURRENT FUNCTIONAL STATUS: GROOMING MOD I DRESSING UE AND LB MOD I, OCCASIONAL ASSIST WITH SOCKS. OFFERED TRG WITH SOCK AID AND PATIENT STATES SHE WOULD BE WILLING TO LEARN USE BUT MAY NOT BE ABLE TO PURCHASE AE . SHOWER BATHING SBA-MIN ASSIST, USE OF DME . NEEDS MEDICAL GRADE GRABBARS INSTALLED. TOILETING MOD I , INCLUDING TRANSFER. SHOWER TRANSFER: CGA UE AROM WFL UE MMT 3+/5 SUPERVISION WITH CURRENT UE HEP. BARRIERS: MENTAL HEALTH DX, WEAKNESS, FALL RISK, BALANCE DEFICIT. WITH CONTINUED SKILLED OT SERVICES, PATIENT HAS POTENTIAL TO FURTHER IMPROVE FUNCTIONAL INDEP WITH ADL AND FUNCTIONAL UE STRENGTH AND DYNAMIC ADL STANDING BALANCE. CONTINUE OT SERVICES PER OT POC. DC PLANNING ONGOING. PATIENT REMAINS HOMEBOUND DUE TO TAXING EFFORT TO LEAVE HOME AND ASSIST OF ANOTHER PERSON DUE TO FALL RISK.</paragraph> Encounters Start Date/Time End Date/Time Encounter Type Admission Type Attending Clinicians Care Facility Care Department Encounter ID Discharge Date Discharge Status Discharge Condition Discharge Reason Percent Goals Met 2025-01-05 00:00:00 2025-03-05 00:00:00 Outpatient [facility] [id number] 53.73
== END 2025-02-19 12:39 | disposition home or self-care (01) ==
LOC: HO.ENCR 12:20
PROVIDERS: PCP Family Medicine; Visit Provider Registered Nurse Diabetes Educator
DX: E11.65 Type 2 diabetes mellitus with hyperglycemia (principal)

== ENCOUNTER → 2025-02-19 12:19 | Outpatient (BNVA) | payer OTHER, SELFPAY | PROVIDERS: PCP Family Medicine; Visit Provider Registered Nurse Diabetes Educator | DX: E11.65 Type 2 diabetes mellitus with hyperglycemia (principal) | CPT/HCPCS: 99211 ==

== ENCOUNTER → 2025-03-01 23:59 | Outpatient (BNV) | payer OTHER, SELFPAY | PROVIDERS: PCP Family Medicine; Visit Provider Family Medicine | DX: F33.0 Major depressive disorder, recurrent, mild (principal); E11.40 Type 2 diabetes mellitus with diabetic neuropathy, unspecified; I25.10 Atherosclerotic heart disease of native coronary artery without angina pectoris | CPT/HCPCS: G0180 ==

== ENCOUNTER → 2025-03-08 23:59 | Outpatient (BNV) | payer OTHER, SELFPAY | PROVIDERS: PCP Family Medicine; Visit Provider Family Medicine | DX: F33.0 Major depressive disorder, recurrent, mild (principal); F11.10 Opioid abuse, uncomplicated | CPT/HCPCS: G0179 ==

== ENCOUNTER 2025-03-12 14:02 | Outpatient (AMB) | payer OTHER, SELFPAY ==
--- NOTE | 2025-03-12 14:53 | A.OFFVIS_ITS ---
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 Accompanied by: Son Allergies Cephalosporins (CEPHALOSPORINS) Allergy (Intermediate, Verified 01/31/25 12:00) RASH oxycodone (From Tylox) Allergy (Intermediate, Verified 01/31/25 12:00) RASH Sulfa (Sulfonamide Antibiotics) (SULFA (SULFONAMIDE ANTIBIOTICS)) Allergy (Intermediate, Verified 01/31/25 12:00) RASH lisinopril Adverse Reaction (Severe, Verified 01/31/25 12:00) contraindication sulfamethoxazole (From Bactrim) Adverse Reaction (Severe, Verified 01/31/25 12:00) Rash trimethoprim (From Bactrim) Adverse Reaction (Severe, Verified 01/31/25 12:00) Rash naproxen (NAPROXEN) Adverse Reaction (Intermediate, Verified 01/31/25 12:00) contraindication HPI Comprehensive Diabetes Asmnt Most Recent Diabetes Results: 2 Microalb/Creat Ratio, (<30) 15.6 ug/mg cr 08/16/24 Cholesterol, (<200) 209 mg/dL H 08/16/24 HDL Cholesterol, (>40) 53 mg/dL 08/16/24 Triglycerides, (<150) 283 mg/dL H 08/16/24 Creatinine, (0.5-1.4) 1.38 mg/dL 08/16/24 BUN, (9-16) 23 mg/dL H 08/16/24 Sodium, (135-145) 140 mmol/L 08/16/24 Potassium, (3.3-5.1) 4.6 mmol/L 08/16/24 Chloride, (96-108) 104 mmol/L 08/16/24 Carbon Dioxide, (22-29) 28 mmol/L 08/16/24 Calcium, (8.4-10.2) 10.1 mg/dL 08/16/24 AST, (5-31) 50 U/L H 08/16/24 ALT, (0-31) 41 U/L H 08/16/24 Total Protein, (6.5-8.0) 8.1 g/dL H 08/16/24 Albumin, (3.5-5.0) 4.4 g/dL 08/16/24 COUNT INCLUDES THE [facility] Medical History Diabetic neuropathy Anemia Type 2 diabetes mellitus with unspecified complications Atherosclerotic cardiovascular disease Cardiac resynchronization therapy defibrillator (STAFF CONSULTANT-D) in place Surgical History History of colonoscopy H/O endoscopy History of implantable cardioverter-defibrillator (ICD) placement (~02/09/17) History of cardiac catheterization (~08/2015) History of umbilical hernia repair History of appendectomy History of cholecystectomy History of tubal ligation Family History Father Myocardial infarction Mother Uterine cancer Lung cancer Maternal Aunt Uterine cancer Mouth cancer Social History Housing: House Patient Tobacco Use Status: Never used Tobacco e-Cigarette/Vaping Use: Never Used Second Hand Smoke Exposure: No service: No Current occupational status: retired Current occupational exposures/hazards: No Cognitive needs: Yes Hearing needs: No Vision needs: Yes Assessment & Plan Assessment & Plan (1) Diabetes type 2, uncontrolled: Code(s): E11.65 - Type 2 diabetes mellitus with hyperglycemia Plan: Diabetes self-management education and support participation record Assessment/scale: 1= needs instructed? 2= needs review? 3= comprehend keep point? 4= demonstrates understanding/ competent? NC= Not Covered Topics Learning Objective: Initial visit Initial or post srvc Initial or post srvc Initial or post srvc Initial or post srvc Initial or post srvc Post srvc Comments Pre Edu-assessment/plan Outcome or reassess O utcome or reassess Outcome or reassess Outcome or reassess Outcome or reassess Outcome or reassess Diabetes pathophysiology 1 Healthy eating 1 Being active 1 Taking medication 1 Monitoring glucose 1 Acute complication 1 Chronic complicated 1 Lifestyle and healthy coping 1 Diabetes distress in support 1 ?Diabetes pathophysiology: ?Defined diabetes med identify own type of diabetes; list 3 options for treating diabetes Healthy eating: ?Described effect of type, amount and ?timing of food on blood glucose; list 3 methods for planning meal Being active: ?State effect of exercise on blood glucose level Taking medication: ?State effect of diabetes medications on diabetes; name diabetes medications taking, action and side effects Monitoring glucose: ?Identify recommended blood glucose targets and personal target Acute complication: ?List symptoms and treatment of hyper and hypoglycemia, DKA, sick day guidelines and guidelines for severe weather or situations of crisis and diabetes supply manage Chronic complication: ?To find the relationship of blood glucose levels to long- term complications of diabetes in screening and preventative measures Lifestyle and healthy coping: ?Described lifestyle and healthy coping strategies to rule out diabetes self-management Diabetes to stress and support: ?Recognize Diabetes to stress and be able to identified support options Learning objectives: The patient was provided with verbal and written education on the following topics as outlined below. The patient met all learning objectives and was able to verbalize understanding and provide teach back of education topics discussed . The patient was provided with the opportunity to ask questions and all questions were answered. Patient Assessment Assess patient education level/literacy/barriers, last A1c 6.7% on 01/22/2025 Patient on basal bolus insulin Asked patient to bring sliding scale to next visit to clarify doses for sliding scale Patient questions/concerns What is Diabetes? Pathophysiology How the body produces and uses insulin Identify type of DM Risk factors Signs of Diabetes Brief overview of Diabetes Management Monitoring blood sugar Following a meal plan Regular exercise Maintaining a healthy weight Taking medication as needed Members of the care team (PCP, RN, MA, RD, CDE, crozer) Blood glucose monitoring Freestyle Danica 3+ with bottom steep tender When/how often to test Target blood sugar ranges Introduction to Nutrition Importance of healthy diet in managing DM Diet is personalized to individual preference Review patient?s regular diet/food preferences Who prepares meals/does food shopping/ Dining out?/ Barriers? How diet effects glucose Eating 3 balanced meals a day with small, healthy snacks between meals Review food groups Carbohydrates: What is a carbohydrate/Which food/food groups are considered carbohydrates Effect of carbohydrates on blood glucose Portion sizes Reading food labels Basic carb counting (if applicable per nursing assessment) Plate method Meal planning Recommendations: Follow plate method, consistent carbs and read nutritional labels. Smart Goal: Patient will identify foods in current meal plan that contain carbohydrates Educational Materials: The patient was provided with the following written educational materials: Planning Healthy Meals, hypoglycemia Handout Patient Response to instructions: Comprehension of Instructions: Fair Readiness to make changes: Contemplation How confident they feel about making changes: Positive Portions of this note were created using voice recognition software, please excuse any words or phrases that may have been misinterpreted. Patient Instructions: Follow-up in 3 weeks with paraeducator with sliding scale Include regular daily activity. ADA recommends 30 minutes of exercise 5 days a week. Weight loss talk to PCP or Clinical Laboratory Aide before starting new plan. Test blood sugar as directed; Fasting and 2hpp largest meal. Watch trends in results. Utilize results and to assess how food, physical activity and medications affect blood sugar results. Bring glucometer or CGM to next visit. Be knowledgeable about diabetes medication, its action, side effects, efficacy, toxicity, prescribed dosage, appropriate timing and frequency of administration, effect of missed and delayed doses and instructions for storage, travel and safety. Problem solving techniques to monitor hypo/hyperglycemia episodes and treatments. Reduce risk reduction behaviors, smoking cessation, regular eye, foot and dental examinations. Coding Level of Care Code Est Pt Level 1 (27933) Diagnoses Diabetes type 2, uncontrolled E11.65
--- OUTSIDE RECORDS SUMMARY | 2025-03-12 15:21 | XMS_ITS | Data Portability ---
Author Organization [facility], RADIOLOGY Address [address] [place] [address] Care Team Providers Care Regional Commercial Sales Manager Name Role Phone SALBADOR TINAJERO Primary Care Provider Assessment No assessment recorded. Plan of Treatment Reminders Order Date Submit Date Provider Last Modified By Organization Details Last Modified Time Details Appointments None recorded. Lab HbA1c (hemoglobi n A1c), blood 2019 020 [facility], [address] [place], [address], 0 08:44:24 TSH, ultra-sens itive, serum 2019 020 [facility] (Lab), [address] [place] [address], [address], 0 17:03:11 BMP, serum or plasma 2019 020 [facility] (Lab), [address] [place] [address], [address], 0 17:03:05 hepatitis C virus Ab, serum 2019 020 [facility] (Lab), [address] [place], [address], 0 07:05:33 HIV 1+2 AB + HIV 1 p24 Ag, qualitativ e immunoassa y, serum 2019 020 [facility] (Lab), [address] [place], [address], 0 10:06:15 hepatitis B virus surface Ab, quantitati ve immunoassa y, serum 2019 020 [facility] (Lab), [address] [place], [address], 0 07:05:36 CBC w/ auto diff 2019 020 [facility] (Lab), [address] [place], [address], 0 10:00:00 iron + total iron-yoko ng capacity (TIBC), serum 2019 020 [facility] (Lab), [address] [place], [address], 0 11:00:15 microalbum in/creatin ine, mass ratio, urine 2019 020 [facility] (Lab), [address] [place], [address], 0 10:11:23 glycohemog lobin, total, blood 2019 020 [facility] (Lab), [address] [place], [address], 0 10:11:18 lipid panel w/ direct LDL, serum 2019 020 [facility] (Lab), [address] [place], [address], 0 10:12:10 CMP, serum or plasma 2019 020 [facility] (Lab), [address] [place], [address], 0 10:12:20 Referral physical therapist referral [address] [facility], [address] [place], [address], 0 08:59:08 diabetic ophthalmol ogy referral 2019 [facility] 18 Not available 0 07:24:[address] referral 2019 [facility] 18 Not available 0 07:24:51 Procedures None recorded. Surgeries None recorded. Imaging None recorded. Medication Orders Tylenol Extra Strength 500 mg tablet [address] [facility], [address] [place], [address], 0 15:47:19 Lantus Solostar U-100 Insulin 100 unit/mL (3 mL) subcutaneo us pen [address] [facility], [address] [place], [address], 0 15:47:21 Diflucan 150 mg tablet [address] [facility], [address] [place], [address], 0 09:37:14 Lantus Solostar U-100 Insulin 100 unit/mL (3 mL) subcutaneo us pen [address] [facility], [address] [place], [address], 0 15:58:04 Novolog FlexPen U-100 Insulin aspart 100 unit/mL (3 mL) subcutaneo us [address] [facility], [address] [place], [address], 0 15:58:02 Novolog FlexPen U-100 Insulin aspart 100 unit/mL (3 mL) subcutaneo us [address] [facility], [address] [place], [address], 0 16:12:47 nitroglyce rin 0.4 mg sublingual tablet [address] [facility], [address] [place], [address], 0 16:12:50 Patient TargetsNo targets recorded. Patient InstructionsNo instructions recorded. Reason for Referral Insurance Claim Auditor Referral for Co ronary arteriosclerosis Referring Physician: [...] x10^3 /uL 4.0 to 10.0 Not Available [facility] (Lab) [address] [place], [address], 09/11/2019 10:00:00 09/11/19 20 09/11/2019 CBC w/ auto diff red blood cells 4.39 x10^6 /uL 3.93 to 5.22 Not Available [facility] (Lab) [address] [place], [address], 09/11/2019 10:00:00 09/11/19 20 09/11/2019 CBC w/ auto diff hemoglobin 13.8 g/dL 11.2 to 15.7 Not Available [facility] (Lab) [address] [place], [address], 09/11/2019 10:00:00 09/11/19 20 09/11/2019 CBC w/ auto diff hematocrit 41.7 % 34 to 45 Not Available [facility] (Lab) [address] [place], [address], 09/11/2019 10:00:00 09/11/19 20 09/11/2019 CBC w/ auto diff MCV 95.0 fL 79 to 94 high Not Available [facility] (Lab) [address] [place], [address], 09/11/2019 10:00:00 09/11/19 20 09/11/2019 CBC w/ auto diff MCH 31.4 pg 26.6 to 32.2 Not Available [facility] (Lab) [address] [place], [address], 09/11/2019 10:00:00 09/11/19 20 09/11/2019 CBC w/ auto diff MCHC 33.1 g/dL 32 to 36.5 Not Available [facility] (Lab) [address] [place], [address], 09/11/2019 10:00:00 09/11/19 20 09/11/2019 CBC w/ auto diff RDW-SD 43.0 fL 35.0 to 46.0 Not Available [facility] (Lab) [address] [place], [address], 09/11/2019 10:00:00 09/11/19 20 09/11/2019 CBC w/ auto diff RDW-CV 12.7 % 10.9 to 14.4 Not Available [facility] (Lab) [address] [place], [address], 09/11/2019 10:00:00 09/11/19 20 09/11/2019 CBC w/ auto diff platelet 157 x10^3 /uL 145 to 370 Not Available [facility] (Lab) [address] [place], [address], 09/11/2019 10:00:00 09/11/19 20 09/11/2019 CBC w/ auto diff MPV 11.2 fL 9.0 to 12.0 Not Available [facility] (Lab) [address] [place], [address], 09/11/2019 10:00:00 09/11/19 20 09/11/2019 CBC w/ auto diff manual differential NO normal Not Available [facility] (Lab) [address] [place], [address], 09/11/2019 10:00:00 09/11/19 20 09/11/2019 CBC w/ auto diff platelet estimate NOT INDICA PETER normal Not Available [facility] (Lab) [address] [place], [address], 09/11/2019 10:00:00 09/11/19 20 09/11/2019 CBC w/ auto diff RBC morphology NOT INDICA PETER normal Not Available [facility] (Lab) [address] [place], [address], 09/11/2019 10:00:00 09/11/19 20 09/11/2019 CBC w/ auto diff neutrophil % 63.7 % Not Available [facility] (Lab) [address] [place], [address], 09/11/2019 10:00:00 09/11/19 20 09/11/2019 CBC w/ auto diff lymphocyte % 24.9 % Not Available [facility] (Lab) [address] [place], [address], 09/11/2019 10:00:00 09/11/19 20 09/11/2019 CBC w/ auto diff monocyte % 6.7 % Not Available [facility] (Lab) [address] [place], [address], 09/11/2019 10:00:00 09/11/19 20 09/11/2019 CBC w/ auto diff eosinophi % 4.1 % Not Available [facility] (Lab) [address] [place], [address], 09/11/2019 10:00:00 09/11/19 20 09/11/2019 CBC w/ auto diff basophil % 0.6 % Not Available [facility] (Lab) [address] [place], [address], 09/11/2019 10:00:00 09/11/19 20 09/11/2019 CBC w/ auto diff neutrophil absolute 5.5 x10^3 /uL 1.5 to 6.3 Not Available [facility] (Lab) [address] [place], [address], 09/11/2019 10:00:00 09/11/19 20 09/11/2019 CBC w/ auto diff lymphocyte absolute 2.2 x10^3 /uL 1 to 3.6 Not Available [facility] (Lab) [address] [place], [address], 09/11/2019 10:00:00 09/11/19 20 09/11/2019 CBC w/ auto diff monocyte absolute 0.6 x10^3 /uL 0.2 to 1 Not Available [facility] (Lab) [address] [place], [address], 09/11/2019 10:00:00 09/11/19 20 09/11/2019 CBC w/ auto diff eosinophil absolute 0.4 x10^3 /uL 0 to 0.5 Not Available [facility] (Lab) [address] [place], [address], 09/11/2019 10:00:00 09/11/19 20 09/11/2019 CBC w/ auto diff basophil absolute 0.1 x10^3 /uL 0 to 0.2 Not Available [facility] (Lab) [address] [place], [address], 09/11/2019 10:00:00 09/11/19 20 09/11/2019 glyco hemog lobin , total , blood glycosolated hemoglobin A1C 11.9 % 4.5 to 6.2 high Not Available [facility] (Lab) [address] [place], [address], 09/11/2019 10:11:18 09/11/19 20 09/11/2019 micro album in/cr eatin ine, mass ratio , urine microalbumin , random urine 0.21 mg/dL 0.13 to 2.00 Not Available [facility] (Lab) [address] [place], [address], 09/11/2019 10:11:22 09/11/19 20 09/11/2019 micro album in/cr eatin ine, mass ratio , urine creatinine urine 40.44 mg/dL Not Available [facility] (Lab) [address] [place], [address], 09/11/2019 10:11:22 09/11/19 20 09/11/2019 micro album [...] than 300 mg/gm Creat . Not Available [facility] (Lab) [address] [place], [address], 09/11/2019 10:11:22 09/11/19 20 09/11/2019 lipid panel w/ direc t LDL, serum cholesterol 177 mg/dL 26 to 192 Not Available [facility] (Lab) [address] [place], [address], 09/11/2019 10:12:10 09/11/19 20 09/11/2019 lipid panel w/ direc t LDL, serum triglyceride s 175 mg/dL 0 to 200 Not Available [facility] (Lab) [address] [place], [address], 09/11/2019 10:12:10 09/11/19 20 09/11/2019 lipid panel w/ direc t LDL, serum LDL calculated vrh 90 mg/dL 0 to 100 Not Available [facility] (Lab) [address] [place], [address], 09/11/2019 10:12:10 09/11/19 20 09/11/2019 lipid panel w/ direc t LDL, serum HDL cholesterol 52 mg/dL 35 to 85 Not Available [facility] (Lab) [address] [place], [address], 09/11/2019 10:12:10 09/11/19 20 09/11/2019 lipid panel [...] x a direc t LDL. Not Available [facility] (Lab) [address] [place], [address], 09/11/2019 10:12:10 09/11/19 20 09/11/2019 CMP, serum or plasm a sodium 137 mmol/ L 136 to 145 Not Available [facility] (Lab) [address] [place], [address], 09/11/2019 10:12:20 09/11/19 20 09/11/2019 CMP, serum or plasm a potassium 4.1 mmol/ L 3.5 to 5.1 Not Available [facility] (Lab) [address] [place], [address], 09/11/2019 10:12:20 09/11/19 20 09/11/2019 CMP, serum or plasm a chloride 102 mmol/ L 98 to 107 Not Available [facility] (Lab) [address] [place], [address], 09/11/2019 10:12:20 09/11/19 20 09/11/2019 CMP, serum or plasm a carbon dioxide 25 mmol/ L 21 to 32 Not Available [facility] (Lab) [address] [place], [address], 09/11/2019 10:12:20 09/11/19 20 09/11/2019 CMP, serum or plasm a BUN 19 mg/dL 7 to 18 high Not Available [facility] (Lab) [address] [place], [address], 09/11/2019 10:12:20 09/11/19 20 09/11/2019 CMP, serum or plasm a creatinine 1.13 mg/dL 0.55 to 1.02 high Not Available [facility] (Lab) [address] [place], [address], 09/11/2019 10:12:20 09/11/19 20 09/11/2019 CMP, serum or plasm a glucose, random 363 mg/dL 74 to 106 high Not Available [facility] (Lab) [address] [place], [address], 09/11/2019 10:12:20 09/11/19 20 09/11/2019 CMP, serum or plasm a calcium 9.0 mg/dL 8.5 to 10.1 Not Available [facility] (Lab) [address] [place], [address], 09/11/2019 10:12:20 09/11/19 20 09/11/2019 CMP, serum or plasm a anion gap 10.0 mmol/ L 5 to 15 Not Available [facility] (Lab) [address] [place], [address], 09/11/2019 10:12:20 09/11/19 20 09/11/2019 CMP, serum or plasm a glomerular filtration rate 48 mL/mi n/1.7 3_m2 Not Available [facility] (Lab) [address] [place], [address], 09/11/2019 10:12:20 09/11/19 20 09/11/2019 CMP, serum or plasm a total bilirubin 0.4 mg/dL 0.2 to 1.0 Not Available [facility] (Lab) [address] [place], [address], 09/11/2019 10:12:20 09/11/19 20 09/11/2019 CMP, serum or plasm a ALT(SGPT) 44 U/L 12 to 78 Not Available [facility] (Lab) [address] [place], [address], 09/11/2019 10:12:20 09/11/19 20 09/11/2019 CMP, serum or plasm a AST (SGOT) 30 U/L 15 to 37 Not Available [facility] (Lab) [address] [place], [address], 09/11/2019 10:12:20 09/11/19 20 09/11/2019 CMP, serum or plasm a alkaline phosphatase 112 U/L 46 to 116 Not Available [facility] (Lab) [address] [place], [address], 09/11/2019 10:12:20 09/11/19 20 09/11/2019 CMP, serum or plasm a albumin 3.1 g/dL 3.4 to 5.0 low Not Available [facility] (Lab) [address] [place], [address], 09/11/2019 10:12:20 09/11/19 20 09/11/2019 CMP, serum or plasm a total protein 6.8 g/dL 6.4 to 8.3 Not Available [facility] (Lab) [address] [place], [address], 09/11/2019 10:12:20 09/11/19 20 09/11/2019 CMP, serum [...] than 70 years of age. Not Available [facility] (Lab) [address] [place], [address], 09/11/2019 10:12:20 09/11/19 20 09/11/2019 iron + total iron- yoko ng capac ity (TIBC ), serum iron 57 ug/dL 50 to 170 Not Available [facility] (Lab) [address] [place], [address], 09/11/2019 11:00:14 09/11/19 20 09/11/2019 iron + total iron- yoko ng capac ity (TIBC ), serum total iron binding capacity 248 ug/dL 250 to 450 low Not Available [facility] (Lab) [address] [place], [address], 09/11/2019 11:00:14 09/11/19 20 09/11/2019 iron + total iron- yoko ng capac ity (TIBC ), serum % iron saturation 23 % 15 to 50 Iron Satur ation value s below 15% indic ate iron defic ient eryth ropoi esis. Not Available [facility] (Lab) [address] [place], [address], 09/11/2019 11:00:14 09/11/19 20 09/12/2019 hepat itis C virus Ab, serum HCV antibody <0.1 s/co_ ratio 0.0-0. 9 normal Negat katelynn: < 0.8 Indet ermin ate: 0.8 - 0.9 Posit katelynn: > 0.9 . The CDC recom mends that a posit katelynn HCV antib jeanette resul t be follo wed up with a HCV Nucle ic Acid Ampli ficat ion test (5217 13). Perfo rmed at: [facility] [place] [address], [place] [address] Lab Direc tor: Lelia Duncan MD, Phone : [phone] Not Available [facility] (Lab) [address] [place] [address], [address], 09/12/2019 07:05:33 09/11/19 20 09/12/2019 hepat itis [...] [address], [place] [address] Lab Direc tor: Lelia Duncan MD, Phone : [phone] Not Available [facility] (Lab) [address] [place] [address], [address], 09/12/2019 07:05:36 09/11/19 20 09/12/2019 HIV 1+2 AB + HIV 1 p24 Ag, quali tativ e immun oassa y, serum hivreflx Non Reacti ve non reacti ve normal Perfo rmed at: [facility] [place] [address], [place] [address] Lab Direc tor: Lelia Duncan MD, Phone : [phone] Not Available [facility] (Lab) [address] [place] [address], [address], 09/12/2019 10:06:15 10/16/19 20 10/16/2019 BMP, serum or plasm a sodium 140 mmol/ L 136 to 145 Not Available [facility] (Lab) [address] [place] [address], [address], 10/16/2019 17:03:05 10/16/19 20 10/16/2019 BMP, serum or plasm a potassium 4.4 mmol/ L 3.5 to 5.1 Not Available [facility] (Lab) [address] [place], [address], 10/16/2019 17:03:05 10/16/19 20 10/16/2019 BMP, serum or plasm a chloride 102 mmol/ L 98 to 107 Not Available [facility] (Lab) [address] [place], [address], 10/16/2019 17:03:05 10/16/19 20 10/16/2019 BMP, serum or plasm a carbon dioxide 24 mmol/ L 21 to 32 Not Available [facility] (Lab) [address] [place], [address], 10/16/2019 17:03:05 10/16/19 20 10/16/2019 BMP, serum or plasm a BUN 21 mg/dL 7 to 18 high Not Available [facility] (Lab) [address] [place], [address], 10/16/2019 17:03:05 10/16/19 20 10/16/2019 BMP, serum or plasm a creatinine 1.18 mg/dL 0.55 to 1.02 high Not Available [facility] (Lab) [address] [place], [address], 10/16/2019 17:03:05 10/16/19 20 10/16/2019 BMP, serum or plasm a glucose, random 252 mg/dL 74 to 106 high Not Available [facility] (Lab) [address] [place], [address], 10/16/2019 17:03:05 10/16/19 20 10/16/2019 BMP, serum or plasm a calcium 9.5 mg/dL 8.5 to 10.1 Not Available [facility] (Lab) [address] [place], [address], 10/16/2019 17:03:05 10/16/19 20 10/16/2019 BMP, serum or plasm a anion gap 14.0 mmol/ L 5 to 15 Not Available [facility] (Lab) [address] [place], [address], 10/16/2019 17:03:05 10/16/19 20 10/16/2019 BMP, serum [...] than 70 years of age. Not Available [facility] (Lab) [address] [place], [address], 10/16/2019 17:03:05 10/16/19 20 10/16/2019 TSH, ultra [...] feren ce with this test. Not Available [facility] (Lab) [address] [place], [address], 10/16/2019 17:03:11 12/07/19 20 12/07/2019 HbA1c (hemo globi n A1c), blood HbA1c 10.5 Not Available [facility] [address] [place] [address], [address], 12/07/2019 15:33:50 09/23/19 20 09/23/2019 imagi ng/florence campos tic resul t No observ ation record ed. elounder Not Available 2019 09:33:48 Result Notes None recorded. Problems Name Problem SNOMED Code Status Onset Date Resolution Date Notes Provider Name and Address Organization Details Recorded Time Anxiety 45294425 Active 2019 [facility] 0 13:04:43 Depressive disorder 82138937 Active 2019 [facility] 0 13:04:49 Dyslipidemia 916203014 Active 2019 [facility] 0 13:04:55 Gastroesophag eal reflux disease 763569187 Active 2019 [facility] 0 13:05:01 Essential hypertension 97420046 Active 2019 [facility] 0 13:05:08 Left bundle branch block 90488354 Active 2019 [facility] 0 13:05:18 Harmful pattern of use of opioid 5306821 Active 2019 [facility] 0 13:05:26 Acute non-ST segment elevation myocardial infarction 722376100 Active 2019 [facility] 0 13:05:38 Chronic obstructive pulmonary disease 14329284 Active 2019 [facility] 0 13:05:44 Monitoring of pacemaker 03034441 Active 2019 [facility] 0 13:05:52 Congestive heart failure 06704718 Active 2019 Salbador Tinajero MD [address] [place], [address], [facility] 0 16:05:08 Coronary arteriosclero sis 10145907 Active 2019 [facility] 0 13:07:39 Pulmonary embolism 67417481 Active 2019 [facility] 0 13:07:49 Kidney disease 83672079 Active 2019 [facility] 0 13:08:00 Type 2 diabetes mellitus 65284671 Active 2019 [facility] 0 13:11:48 Calcification of breast 357158372 Active 2019 Needs a repeat MAMMO in December 2019 Salbador Tinajero MD [address] [place], [address], [facility] 0 16:34:02 Problem Notes None recorded. Procedures Surgical History Date Name Laterality Status Provider Name and Address Organization Details Recorded Time Hernia Repair completed [facility] 08/23/2019 13:08:59 Tubal Ligation completed [facility] 08/23/2019 13:09:08 Appendectomy completed [facility] 08/23/2019 13:09:15 Gallbladder Surgery completed [facility] 08/23/2019 13:09:22 Pacemaker completed [facility] 08/23/2019 13:09:32 Imaging Results None recorded. Procedure Notes None recorded. Medical Equipment None Reported. Allergies Allergen ID Allergen Name Allergen Category Reaction Reaction Severity Criticality Documentation Date Start Date Code Code System Note Provider Name and Address Organization Details Recorded Time 34095 Bactrim medicatio n Not available Not available Not available 08/23/[address] [facility] 0 11:49:48 25723 Medicinal product containin g cephalosp arturo and acting as antibacte rial agent (product) medicatio n Not available Not available Not available 08/23/[address] [facility] 0 11:49:57 87432 naproxen medicatio n Not available Not available Not available 08/23/[address] [facility] 0 11:50:04 53722 Substance with sulfonami de structure and antibacte rial mechanism of action (substanc e) medicatio n Not available Not available Not available 08/23/[address] [facility] 0 11:50:21 Medications Name Sig Start Date [...] Not Available No t Available ReliOn Pen [place] 32 gauge x active Not Available Not [...] Body mass index (BMI) Body weight Systolic And Diastolic Provider Name and Address Organization Details Last Updated DateTime 0 160.02 cm 85 /min 97 % 97 % 37 kg/m2 74964.8 1 g 124/82 mm[Hg] [facility] 0 15:26:42 Date Recorded Body height Heart rate Oxygen saturation Oxygen saturation in Arterial blood by Pulse oximetry Systolic And Diastolic Provider Name and Address Organization Details Last Updated DateTime 0 160.02 cm 77 /min 97 % 97 % 124/74 mm[Hg] [facility] 0 15:04:28 Date Recorded Body height Provider Name an d Address Organization Details Last Updated DateTime 12/07/2019 160.02 cm [facility] 12/07/2019 15:33:29 Date Recorded Body height Provider Name an d Address Organization Details Last Updated DateTime 12/18/2019 160.02 [facility] 09:25:05 Date Recorded Body height Provider Name an d Address Organization Details Last Updated DateTime 12/19/2019 160.02 cm [facility] 12/19/2019 15:32:06 Social History Question Answer Notes LastModified by Organizat ion Details LastModified Time Tobacco Smoking Status Never Smoker [facility] 08/23/2019 13:09:59 Do You Have An Advance [...] Details Recorded Time Tdap 0 completed Odalis umana, [facility] 08/23/2019 13:02:39 Pneumococcal conjugate PCV [address] [facility] 08/23/2019 13:03:06 pneumococcal polysaccharide PPV23 [address] [facility] 08/23/2019 13:03:27 pneumococcal, unspecified formulation [address] [facility] 08/23/2019 13:03:44 zoster, unspecified formulation [address] [facility] 08/23/2019 13:03:58 Past Encounters Encounter ID Performer Location Encounter Start Date Encounter Closed Date Diagnosis/Indication Diagnosis SNOMED-CT Code Diagnosis ICD10 Code Diagnosis Note [id number] Salbador Tinajero MD [facility] [address] [place] [phone] 09/10/2019 14:55:38 09/10/2019 16:15:08 Coronary arteriosclerosis 98883511 I25.10 Has hx of coronary artery disease, reports having 4 stents placed, most recent was 5 years ago. treated at [facility]. Per note review and patient report, pacemaker was placed 2 years ago. Denies active chest pain at this time. Type 2 gilda betes mellitus 67392631 E11.42 Hemoglobin A1c in December 2018 was 11. Checking her blood sugars frequently , noted blood sugars to be in the 300s-400. -Reports history of neuropathy on the lower extremitie s, denies calluses, wounds -Last dilated eye exam 2 years ago Anxiety 42276310 F41.9 Patient reporting fair control of anxiety but still has episodes of insomnia. Essential hypertension 83027303 I10 BP has been well controlled . Denies chest pain, shortness of breath, dyspnea on exertion, blurred vision. Dyslipidemia 572418722 E 78.5 On atorvastat in 40 mg daily. Gastroesop hageal reflux disease 223495576 K21.9 On omeprazole , reports good symptomati c control on the medication . Depressive disorder 6664 0228 F32.9 Has history of depression . Says symptoms are well controlled . Denies suicidal ideations or passive thoughts of . Does not follow with counseling and does not wish to establish care with counseling . Iron deficiency 57142009 E61.1 Reports a history of iron deficiency anemia, currently on iron supplement ation. Viral screening 22952295 4 Z11.59 [id number] Salbador Tinajero MD [facility] [address] [place] [phone] 10/08/2019 14:47:01 10/08/2019 15:35:33 Type 2 diabetes mellitus 10592084 E11.42 Hemoglobin A1c in December 2018 was [...] discharge summary is not available. Recurrent falls 38129420 2 R29.6 Patient reports 2 episodes of mechanical falls when she slipped on the ice. Congestive heart failure 77666032 I50.9 Patient was started on losartan and metoprolol succinate at discharge. Amina lim, I do not have discharge summary available for review. She has an appointmen t scheduled with cardiology in October. Fatigue 45411452 R53.83 She reporting fatigue and malaise. She says that 2 sisters have diagnosis of hypothyroi dism. Coronary arteriosclerosis 13614059 I25.10 On her last visit, she reported hx of coronary artery disease, reports having 4 stents placed, most recent was 5 years ago, treated in [facility]. Per note review and patient report, pacemaker was placed 2 years ago. She presented to the emergency room on 09/24 for acute onset of chest pain and was transferre d to [facility] in [place] and had cardiac catheteriz ation. According to the patient, no new stents were placed. She had medication adjusted at discharge and was placed on ARB. She used to be on bisoprolol and was switched to metoprolol succinate. no active chest pain at this time. She was instructed to call 911/go to ED if develops acute chest pain. [id number] Jose Combs MD [facility] [address] [place] [phone] 12/07/2019 15:32:37 12/07/2019 16:17:08 Type 2 diabetes mellitus [id number] E11.69 [id number] Sara Del Castillo NP [facility] [address] [place] [phone] 12/18/2019 08:14:27 12/18/2019 10:11:48 Vaginitis [id number] N76.0 Advised pt to call if symptoms do not resolve with treatment. [id number] Salbador Tinajero MD [facility] [address] [place] [phone] 12/19/2019 08:14:26 12/20/2019 08:00:46 Type 2 diabetes mellitus [id number] E11.42 Hemoglobin A1c 10.1%. Will increase dose [...] in 3 months. Pain of hip region [id number] M25.559 6 weeks of mild to [...] 1 [employer] (MEDICARE REPLACEMENT/A DVANTAGE - HMO) [id number] Deanna Chacon [id number] Deanna Chacon Notes Date Note Type Note [...] She has been seen by cardiology in [place], denies seeing any principal research economist since moving to [place]. Hypertension patient reports good control of hypertension on current medication. She denies chest pain, shortness of breath, dyspnea on exertion, orthopnea, PND. COPD not on oxygen. She is on inhalers, denies shortness of breath, cough or wheezing. Denies any recent episodes of exacerbation. GERD says and omeprazole provides appropriate control of symptoms. Salbador Tinajero MD [address] [place] [address], [phone], [facility] 09/10/2019 16:34:18 10/08/2019 text/html This [...] of chest pain. She was transferred to [facility] in [place] and had cardiac cath done on 09/24/19. [...] exertion. She has ongoing lower extremity edema. [facility]NA is visiting twice weekly for diabetes education [...] pain or abdominal pain. Salbador Tinajero MD [address] [place] [address], [phone], [facility] 10/08/2019 16:12:10 12/18/2019 text/html This [...] discussed. Patient/guardian was informed how to access [id number] care in the event of an emergency. [...] 4 months ago. Sara Del Castillo NP [address] [place] [address], [phone], [facility] 12/18/2019 09:46:05 12/19/2019 text/html This [...] discussed. Patient was informed how to access [id number] care in the event of an emergency. [...] any skin changes, edema. Salbador Tinajero MD [address] [place] [address], [phone], [facility] 12/19/2019 18:08:01 OBGyn Episode No OBEpisode recorded.
--- OUTSIDE RECORDS SUMMARY | 2025-03-12 15:21 | XMS_ITS | Clinical Summary ---
Author Organization [facility] Facility Address [address] [address] Care Team Providers Care Beer Merchant Name Role Phone Unavailable Primary Care Provider [...] Visit [facility] [address] [phone] Bereket Olivo MD [address] [phone] Health Maintenance Due Date Last Done Comments [...] Diabetes: Visual Foot Exam 12/06/2024 Influenza Vaccine (#1) 2025 Hepatitis B Vaccine Aged Out No longe r eligible based on patient's age to complete this topic Insurance [facility] ([id number]) [place] [id number]
== END 2025-03-12 14:55 | disposition home or self-care (01) ==
LOC: HO.ENCR 14:02
PROVIDERS: PCP Family Medicine; Visit Provider Registered Nurse Diabetes Educator
DX: E11.65 Type 2 diabetes mellitus with hyperglycemia (principal)

== ENCOUNTER → 2025-03-12 14:02 | Outpatient (BNVA) | payer OTHER, SELFPAY | PROVIDERS: PCP Family Medicine; Visit Provider Registered Nurse Diabetes Educator | DX: E11.65 Type 2 diabetes mellitus with hyperglycemia (principal) | CPT/HCPCS: 99211 ==

== ENCOUNTER → 2025-03-13 23:59 | Outpatient (BNV) | payer OTHER, SELFPAY | PROVIDERS: PCP Family Medicine; Visit Provider Family Medicine | DX: F33.0 Major depressive disorder, recurrent, mild (principal); N17.9 Acute kidney failure, unspecified; E11.40 Type 2 diabetes mellitus with diabetic neuropathy, unspecified | CPT/HCPCS: G0180 ==

== ENCOUNTER 2025-03-20 16:40 | Outpatient (REF) | payer OTHER, SELFPAY ==
--- NOTE | ~2025-03-20 | CT_ITS ---
EXAMINATION: CT HEAD WITHOUT CONTRAST CLINICAL INFORMATION: M85.80 - Other specified disorders of bone density and structure, unspecified COMPARISON: April 13, 2024 and January 14, 2013 TECHNIQUE: Contiguous axial imaging was performed from the skull base to vertex without intravenous administration of contrast. This CT examination was performed using dose optimization techniques as appropriate, variously including the following: *Automated exposure control *Adjustment of mA and/or kV according to patient size (this includes techniques or standardized protocols for targeted exams where dose is matched to indication/reason for exam; i.e. extremities or head) *Use of iterative reconstruction technique DLP: 849 mGY*cm FINDINGS: There is no acute ischemic change. There is no intracranial hemorrhage. There is no mass-effect or midline shift. Basal cisterns and ventricles are within normal limits for age/cerebral volume. Orbits are symmetrical and unremarkable. Paranasal sinuses and mastoid air cells are pneumatized. Again noted is calvarial thickening, greater in frontal and temporal regions. CT/CT head/brain wo IV con IMPRESSION: No acute intracranial abnormality. Calvarial thickening. This is a nonspecific finding and can be idiopathic, related to Paget's disease, fibrous dysplasia, metabolic abnormalities, bone dysplasias, and other etiologies. Electronically signed by: Ang De Los Santos MD 03/20/2025 05:43 PM EDT
--- OUTSIDE RECORDS SUMMARY | 2025-03-20 16:43 | XMS_ITS | Clinical Summary ---
Author Organization [facility] Facility Address [address] [address] Care Team Providers Care Cooking Teacher Name Role Phone Unavailable Primary Care Provider Unavailabl e Allergies Active Allergy Reactions Criticality Noted Date Comments Cephalosporins 03/18/2025 Hydrocodone 01/08/2025 Lisinopril 01/08/2025 Other Reaction(s): LUDY Naproxen 01/05/2025 Sulfamethoxazole-Trimethoprim 2024 Active Problems Problem Noted Date Diagnosed Date Gastroesophageal reflux disease 03/15/2025 Essential hypertension 03/15/2025 Dyslipidemia 03/15/2025 Cyst of kidney 03/15/2025 Cyst of pancreas 03/15/2025 Coronary arteriosclerosis 03/15/2025 Chronic systolic heart failure 03/15/2025 Overview (03/15/2025): Per cardiology note 06/21/23. Chronic kidney disease stage 3 03/15/2025 Chest pain 03/15/2025 Cardiac defibrillator in situ 03/15/2025 Benzodiazepine dependence 03/15/2025 Anxiety 03/15/2025 Paroxysmal atrial fibrillation 03/15/2025 Long-term current use of insulin 03/15/2025 Left axis deviation 03/15/2025 Gastroparesis 03/15/2025 Ischemic myocardial dysfunction 03/15/2025 Pulmonary embolism 03/15/2025 Refractory heart failure 03/15/2025 Overview (03/15/2025): Per cardiology note 06/21/23. Recurrent major depression in partial remission 03/15/2025 Congestive heart failure 03/15/2025 Heart failure with reduced ejection fraction Left bundle-branch block 03/15/2025 Severe obesity 03/15/2025 Type 2 diabetes mellitus 03/15/2025 Myocardial infarction 01/17/2013 Social History Tobacco Use Types Packs/Day Years Used Date Smoking Tobacco: Never Assessed Comments Unknown Sex and Gender Information Value Date Recorded Sex Assigned at Not on file Legal Sex Female 2:06 PM EDT Gender Identity Not on file Sexual Orientation Not on file Plan of Treatment Upcoming Encounters Date Type Department Care Team (Late st Contact Info) Description 04/11/2025 10:45 AM EDT [facility] [address] [place] [phone] Bereket Olivo MD [address] [phone] Health Maintenance Due Date Last Done Comments Breast Cancer Screening 1950 Colorectal Cancer Screening: Annual FOBT 1999 Colorectal Cancer Screening: Colonoscopy 1999 Colorectal Cancer Screening: Sigmoidoscopy 1999 Pneumococcal Vaccine: 50+ Years (4 of 4 - PCV20 or PCV21) 09/21/2022 09/21/2017, 05/09/2012, 08/22/2005, Additional history exists Diabetes: Hemoglobin A1C 12/06/2024 Diabetes: Ophthalmology Exam 12/06/2024 Diabetes: Pedal Pulse Checked 12/06/2024 Diabetes: Sensory Foot Exam 12/06/2024 Diabetes: Visual Foot Exam 12/06/2024 Influenza Vaccine (#1) 2025 Hepatitis B Vaccine Aged Out No longe r eligible based on patient's age to complete this topic Insurance [facility] ([id number]) [place] [id number]
--- OUTSIDE RECORDS SUMMARY | 2025-05-03 20:00 | XMS_ITS | Clinical Summary ---
Author Organization Unknown Care Team Providers [facility]chandising Manager Name Role Phone LATOYA MARTINEZ, SYLVAIN Unavailable Unavailable REY GRANT, [place] Unavailable Unavailable JOSUE RN, INGE Unavailable Unavailable Payers Payer Name Policy Type Policy Number Effective Date Expira tion Date [facility] [id number] [place] [id number] ON DEMAND MEDICARE - [place] - [place] [id number] Problems Condition Name Condition Details Condition Category [...] 01-01 00:00: 00 ATHSCL HEART DISEASE OF [place] CORONARY ARTERY W/O ANG PCTRS Active 01-01 [...] 2020-08 00:00: 00 09-05 23:59 :00 No [id number] Per instruc tions TWO (2) TIMES A DAY TO 3 (THREE) TIMES A DAY Per instructio ns TWO (2) TIMES A DAY TO 3 (THREE) TIMES A DAY (route: topical) Med Classific ation: Antisepti cs and Disinfect ants Eliquis 5 mg tablet 03-11 00:00: 00 01-01 23:59 :00 No [id number] 1 tablet TWO (2) TIMES A DAY 1 tablet TWO (2) TIMES A DAY (route: oral) Med Classific ation: Hematolog ical Agents ferrous sulfate 324 mg (65 mg iron) tablet,jessica yed release 2020-08 00:00: 00 03-11 23:59 :00 No [id number] Per instruc tions DAILY Per instructio ns DAILY (route: oral) Med Classific ation: Electroly te Balance-N utritiona l Products gabapentin 400 mg capsule 2020-08 00:00: 00 03-11 23:59 :00 No [id number] Per instruc tions 3 (THREE) TIMES A DAY Per instructio ns 3 (THREE) TIMES A DAY (route: oral) Med Classific ation: Central Nervous System Agents metoprolol succinate ER 25 mg tablet,exte nded release 24 hr 2020-08 00:00: 00 03-11 23:59 :00 No [id number] Per instruc tions DAILY Per instructio ns DAILY (route: oral) Med Classific ation: Cardiovas cular Therapy Agents magnesium oxide 400 mg (241.3 mg magnesium) tablet 2020-08 00:00: 00 03-11 23:59 :00 No [id number] Per instruc tions DAILY Per instructio ns DAILY (route: oral) Med Classific ation: Electroly te Balance-N utritiona l Products atorvastati n 40 mg tablet 2020-08 00:00: 00 03-11 23:59 :00 No [id number] Per instruc tions DAILY Per instructio ns DAILY (route: oral) Med Classific ation: Cardiovas cular Therapy Agents isosorbide dinitrate 30 mg tablet 2020-08 00:00: 00 03-11 23:59 :00 No [id number] Per instruc tions TWO (2) TIMES A DAY Per instructio ns TWO (2) TIMES A DAY (route: oral) Med Classific ation: Cardiovas cular Therapy Agents clopidogrel 75 mg tablet 03-11 00:00: 00 01-01 23:59 :00 No [id number] 1 tablet DAILY 1 tablet DAILY (route: oral) Med Classific ation: Hematolog ical Agents torsemide 20 mg tablet 2020-08 00:00: 00 03-11 23:59 :00 No [id number] Per instruc tions DAILY Per instructio ns DAILY (route: oral) Med Classific ation: Cardiovas cular Therapy Agents pantoprazol e 20 mg tablet,jessica yed release 2020-08 00:00: 00 03-11 23:59 :00 No [id number] Per instruc tions DAILY Per instructio ns DAILY (route: oral) Med Classific ation: Gastroint estinal Therapy Agents Lantus Solostar U-100 Insulin 100 unit/mL (3 mL) subcutaneou s pen 2020-08 0 00:00: 00 03-11 23:59 :00 No [id number] Per instruc tions DAILY Per instructio ns DAILY (route: subcutaneo us) Med Classific ation: Endocrine acetaminoph en 325 mg tablet 03-11 00:00: 00 01-01 23:59 :00 No [id number] 2 tablet 3 TIMES DAILY 2 tablet 3 TIMES DAILY (route: oral) Med Classific ation: Analgesic , Anti-infl ammatory or Antipyret ic atorvastati n 80 mg tablet 03-11 00:00: 00 01-01 23:59 :00 No [id number] 1 tablet BEDTIME 1 tablet BEDTIME (route: oral) Med Classific ation: Cardiovas cular Therapy Agents duloxetine 20 mg capsule,del ayed release 03-11 00:00: 00 01-01 23:59 :00 No [id number] 2 capsule DAILY 2 capsule DAILY (route: oral) Med Classific ation: Central Nervous System Agents ferrous sulfate 325 mg (65 mg iron) tablet 03-11 00:00: 00 01-01 23:59 :00 No [id number] 1 tablet DAILY 1 tablet DAILY (route: oral) Med Classific ation: Electroly te Balance-N utritiona l Products furosemide 20 mg tablet 03-11 00:00: 00 04-19 23:59 :00 No [id number] 1 tablet DAILY 1 tablet DAILY (route: oral) Med Classific ation: Cardiovas cular Therapy Agents gabapentin 100 mg capsule 03-11 00:00: 00 01-01 23:59 :00 No [id number] 2 capsule 3 TIMES DAILY 2 capsule 3 TIMES DAILY (route: oral) Med Classific ation: Central Nervous System Agents Lantus Solostar U-100 Insulin 100 unit/mL (3 mL) subcutaneou s pen 03-11 00:00: 00 01-01 23:59 :00 No [id number] 20 unit BEDTIME 20 unit BEDTIME (route: subcutaneo ) Med Classific ation: Endocrine melatonin 5 mg capsule 03-11 00:00: 00 01-01 23:59 :00 No [id number] 1 capsule DAILY 1 capsule DAILY (route: oral) Med Classific ation: Central Nervous System Agents metoprolol succinate ER 50 mg tablet,exte nded release 24 hr 03-11 00:00: 00 01-01 23:59 :00 No [id number] 1 tablet DAILY 1 tablet DAILY (route: oral) Med Classific ation: Cardiovas cular Therapy Agents mirtazapine 15 mg disintegrat ing tablet 03-11 00:00: 00 01-01 23:59 :00 No [id number] 1 tablet BEDTIME 1 tablet BEDTIME (route: oral) Med Classific ation: Central Nervous System Agents multivitami n tablet 03-11 00:00: 00 01-01 23:59 :00 No [id number] 1 tablet DAILY 1 tablet DAILY (route: oral) Med Classific ation: Electroly te Balance-N utritiona l Products Nitrostat 0.4 mg sublingual tablet 03-11 00:00: 00 01-01 23:59 :00 No [id number] 1 tablet NEEDED 1 tablet NEEDED (route: sublingual ) Med Classific ation: Cardiovas cular Therapy Agents pantoprazol e 40 mg tablet,jessica yed release 03-11 00:00: 00 01-01 23:59 :00 No [id number] 1 tablet DAILY 1 tablet DAILY (route: oral) Med Classific ation: Gastroint estinal Therapy Agents quetiapine 200 mg tablet 03-11 00:00: 00 11-02 23:59 :00 No [id number] 1 tablet BEDTIME 1 tablet BEDTIME (route: oral) Med Classific ation: Central Nervous System Agents Senna Laxative 8.6 mg tablet 03-11 00:00: 00 01-01 23:59 :00 No [id number] 2 tablet DAILY 2 tablet DAILY (route: oral) Med Classific ation: Gastroint estinal Therapy Agents valsartan 40 mg tablet 03-11 00:00: 00 01-01 23:59 :00 No [id number] 1 tablet DAILY 1 tablet DAILY (route: oral) Med Classific ation: Cardiovas cular Therapy Agents Lasix 40 mg tablet 04-19 00:00: 00 05-09 23:59 :00 No [id number] 1 tablet DAILY 1 tablet DAILY (route: oral) Med Classific ation: Cardiovas cular Therapy Agents Lasix 20 mg tablet 05-10 00:00: 00 11-02 23:59 :00 No [id number] 1 tablet DAILY 1 tablet DAILY (route: oral) Med Classific ation: Cardiovas cular Therapy Agents Seroquel 100 mg tablet 05-10 00:00: 00 11-02 23:59 :00 No [id number] 1 tablet BEDTIME 1 tablet BEDTIME (route: oral) Med Classific ation: Central Nervous System Agents Jardiance 10 mg tablet 2022-08 00:00: 00 01-01 23:59 :00 No [id number] 1 tablet DAILY 1 tablet DAILY (route: oral) Med Classific ation: Endocrine Seroquel 100 mg tablet 11-05 00:00: 00 01-01 23:59 :00 No [id number] 3 tablet BEDTIME 3 tablet BEDTIME (route: oral) Med Classific ation: Central Nervous System Agents torsemide 20 mg tablet 11-05 00:00: 00 01-01 23:59 :00 No [id number] 1 tablet DAILY 1 tablet DAILY (route: oral) Med Classific ation: Cardiovas cular Therapy Agents isosorbide mononitrate ER 60 mg tablet,exte nded release 24 hr 2023-08 00:00: 00 01-01 23:59 :00 No [id number] 1 tablet DAILY 1 tablet DAILY (route: oral) Med Classific ation: Cardiovas cular Therapy Agents acetaminoph en 325 mg capsule 01-05 00:00: 00 Yes [id number] 3 capsule 3 TIMES DAILY 3 capsule 3 TIMES DAILY (route: oral) Med Classific ation: Analgesic , Anti-infl ammatory or Antipyret ic atorvastati n 80 mg tablet 01-05 00:00: 00 Yes [id number] 1 tablet EVERY AM 1 tablet EVERY AM (route: oral) Med Classific ation: Cardiovas cular Therapy Agents carbidopa 25 mg-levodopa 100 mg tablet 01-05 00:00: 00 Yes [id number] 1 tablet 2 TIMES DAILY 1 tablet 2 TIMES DAILY (route: oral) Med Classific ation: Central Nervous System Agents clopidogrel 75 mg tablet 01-05 00:00: 00 Yes [id number] 1 tablet EVERY AM 1 tablet EVERY AM (route: oral) Med Classific ation: Hematolog ical Agents duloxetine 20 mg capsule,del ayed release 01-05 00:00: 00 Yes [id number] 2 capsule EVERY AM 2 capsule EVERY AM (route: oral) Med Classific ation: Central Nervous System Agents Eliquis 5 mg tablet 01-05 00:00: 00 Yes [id number] 1 tablet 2 TIMES DAILY 1 tablet 2 TIMES DAILY (route: oral) Med Classific ation: Hematolog ical Agents ferrous sulfate 325 mg (65 mg iron) tablet 01-05 00:00: 00 Yes [id number] 1 tablet EVERY AM 1 tablet EVERY AM (route: oral) Med Classific ation: Electroly te Balance-N utritiona l Products gabapentin 100 mg capsule 01-05 00:00: 00 Yes [id number] 2 capsule 3 TIMES DAILY 2 capsule 3 TIMES DAILY (route: oral) Med Classific ation: Central Nervous System Agents Humalog KwikPen (U-100) Insulin 100 unit/mL subcutaneou s 01-05 00:00: 00 Yes [id number] Per instruc tions 3 TIMES DAILY Per instructio ns 3 TIMES DAILY (route: subcutaneo us) Med Classific ation: Endocrine Jardiance 10 mg tablet 01-05 00:00: 00 Yes [id number] 1 tablet EVERY AM 1 tablet EVERY AM (route: oral) Med Classific ation: Endocrine melatonin 5 mg capsule 01-05 00:00: 00 Yes [id number] 1 capsule BEDTIME 1 capsule BEDTIME (route: oral) Med Classific ation: Central Nervous System Agents metoprolol succinate ER 25 mg tablet,exte nded release 24 hr 01-05 00:00: 00 Yes [id number] 1 tablet EVERY AM 1 tablet EVERY AM (route: oral) Med Classific ation: Cardiovas cular Therapy Agents Miralax 17 gram oral powder packet 01-05 00:00: 00 Yes [id number] 1 packet EVERY AM 1 packet EVERY AM (route: oral) Med Classific ation: Gastroint estinal Therapy Agents mirtazapine 15 mg tablet 01-05 00:00: 00 Yes [id number] 1 tablet EVERY AM 1 tablet EVERY AM (route: oral) Med Classific ation: Central Nervous System Agents Multiple Vitamins tablet 01-05 00:00: 00 Yes [id number] 1 tablet EVERY AM 1 tablet EVERY AM (route: oral) Med Classific ation: Electroly te Balance-N utritiona l Products omeprazole 20 mg capsule,del ayed release 01-05 00:00: 00 Yes [id number] 2 capsule EVERY AM 2 capsule EVERY AM (route: oral) Med Classific ation: Gastroint estinal Therapy Agents quetiapine 100 mg tablet 01-05 00:00: 00 Yes [id number] 2 tablet BEDTIME 2 tablet BEDTIME (route: oral) Med Classific ation: Central Nervous System Agents Semglee (insulin glargine-yf gn) 100 unit/mL subcutaneou s solution 01-05 00:00: 00 Yes [id number] 65 unit BEDTIME 65 unit BEDTIME (route: [...] Observation Time Observation Value Commen ts Temperature 2025-03-20 09:39:00.000 98.2 [degF] Temperature 2025-03-18 08:15:00.000 97.6 [degF] Temperature 2025-03-15 14:21:00.000 97.4 [degF] Temperature 2025-03-15 08:54:00.000 97.6 [degF] Temperature 2025-03-14 12:44:00.000 97.3 [degF] Temperature 2025-03-13 09:30:00.000 97.9 [degF] Temperature 2025-03-11 08:16:00.000 97.9 [degF] Temperature 2025-03-08 08:39:00.000 97.8 [degF] Temperature 2025-03-06 08:00:00.000 97.9 [degF] Pulse 2025-03-20 09:39:00.000 81 /min Pulse 2025-03-18 08:15:00.000 76 /min Pulse 2025-03-15 14:21:00.000 84 /min Pulse 2025-03-15 08:54:00.000 77 /min Pulse 2025-03-14 12:44:00.000 60 /min Pulse 2025-03-13 09:30:00.000 74 /min Pulse 2025-03-11 08:16:00.000 76 /min Pulse 2025-03-08 08:39:00.000 76 /min Pulse 2025-03-06 08:00:00.000 74 /min O2 Saturation (%) 2025-03-20 09:39:00.000 98 % O2 Saturation (%) 2025-03-18 08:15:00.000 97 % O2 Saturation (%) 2025-03-15 14:27:00.000 96 % O2 Saturation (%) 2025-03-15 08:55:00.000 97 % O2 Saturation (%) 2025-03-13 09:31:00.000 97 % O2 Saturation (%) 2025-03-11 08:16:00.000 97 % O2 Saturation (%) 2025-03-08 08:40:00.000 97 % O2 Saturation (%) 2025-03-06 08:01:00.000 98 % Respirations 2025-03-20 09:39:00.000 18 /min Respirations 2025-03-18 08:15:00.000 18 /min Respirations 2025-03-15 14:21:00.000 18 /min Respirations 2025-03-15 08:54:00.000 18 /min Respirations 2025-03-14 12:44:00.000 18 /min Respirations 2025-03-13 09:30:00.000 20 /min Respirations 2025-03-11 08:16:00.000 20 /min Respirations 2025-03-08 08:39:00.000 18 /min Respirations 2025-03-06 08:00:00.000 20 /min Weight (lbs) 2025-03-20 09:39:00.000 216 [lb_av] Weight (lbs) 2025-03-18 08:15:00.000 214 [lb_av] Weight (lbs) 2025-03-15 08:55:00.000 216 [lb_av] Weight (lbs) 2025-03-13 09:31:00.000 216 [lb_av] Weight (lbs) 2025-03-11 08:16:00.000 216 [lb_av] Weight (lbs) 2025-03-08 08:40:00.000 214 [lb_av] Weight (lbs) 2025-03-06 08:01:00.000 215 [lb_av] Systolic Blood Pressure 2025-03-20 09:39:00.000 122 mm [Hg] Systolic Blood Pressure 2025-03-18 08:15:00.000 [...] 08:00:00.000 129 mm [Hg] Diastolic Blood Pressure 2025-03-20 09:39:00.000 69 mm [Hg] Diastolic Blood Pressure 2025-03-18 08:15:00.000 [...] AWARENESS FOR SAFETY AND WILL NOTIFY CLINICAL GOLF TEACHER AND PHYSICIAN/PROVIDER WITH ANY CHANGE IN CONDITION. [code = SKILLED NURSE WILL MAINTAIN SITUATIONAL AWARENESS FOR SAFETY AND WILL NOTIFY CLINICAL GOLF TEACHER AND PHYSICIAN/PROVIDER WITH ANY CHANGE IN CONDITION.] [...] CARE WILL BE ESTABLISHED THAT MEETS PATIENT'S HALF-WAY NEEDS AND INCLUDES PATIENT GOAL FOR HOME [...] ([facility]) [facility]]:</paragraph><paragraph>PATIENT SEEN FOR SKILLED OT TREATMENT FOR 03-14-25 PATIENT REPORTING FATIGUE THIS DATE. OT PROVIDED INSTRUCTION AND TRG FOR SAFETY , FALL PREVENTION , WORK SIMPLIFICATION AND ENERGY CONSERVATION FOR [place] IN [place] MGT , FUNCTIONAL MOBILITY AND TRANSFER TRG. PATIENT ABLE TO MANAGE FUNCTIONAL TRANSFER AND MOBILITY WITHOUT DEVICE WITH SBA FOR STABILITY AND TRG FOR FALL PREVENTION. PATIENT REQUIRED THERAPEUTIC REST DUE TO PAIN AND FATIGUE, LOW VISION. WITH CONTINUED SKILLED OT SERVICES, PATIENT HAS POTENTIAL TO FURTHER IMPROVE FUNCTIONAL QUALITY OF TASK INVOLVEMENT. BARRIERS: WEAKNESS, PAIN, LOW VISION DC PLANNING ONGOING. PATIENT REMAINS HOMEBOUND DUE TO TAXING EFFORT TO LEAVE HOME AND ASSIST OF ANOTHER PERSON DUE TO WEAKNESS.</paragraph> Encounters Start Date/Time End Date/Time Encounter Type Admission Type Attending Clinicians Care Facility Care Department Encounter ID Discharge Date Discharge Status Discharge Condition Discharge Reason Percent Goals Met 2025-03-06 00:00:00 2025-05-04 00:00:00 Outpatient [facility] [place] [facility] [id number]
== END 2025-03-20 16:41 | disposition home or self-care (01) ==
LOC: HO.CT 16:40
PROVIDERS: PCP Family Medicine; Visit Provider Nurse Practitioner Family
DX: M85.80 Other specified disorders of bone density and structure, unspecified site (principal)
CPT/HCPCS: 70450

== ENCOUNTER → 2025-03-20 16:42 | Outpatient (BNV) | payer OTHER, SELFPAY | PROVIDERS: PCP Family Medicine; Visit Provider Radiology Diagnostic Radiology | DX: M85.2 Hyperostosis of skull (principal) | CPT/HCPCS: 70450 ==

== ENCOUNTER 2025-04-04 10:23 | Outpatient (AMB) | payer OTHER, SELFPAY ==
--- NOTE | 2025-04-04 10:39 | MHC.PC.OV ---
Vital Signs 04/04/25 10:40 Height 5 ft 3 in Weight 219 lb 2 oz BMI 38.8 BP 128/74 Blood Pressure Location Rt brachial Position Sitting Respiration 16 Pulse 99 Pulse Source Pulse Oximeter Temp 98.2 F Temp Source Temporal Artery Scan Pulse Oximetry (%) 99 Oxygen Delivery Method Room Air Intake Visit Reasons: f/u diabetes Accompanied by: CRAB STEAMER Allergies Cephalosporins (CEPHALOSPORINS) Allergy (Intermediate, Verified 04/04/25 10:43) RASH oxycodone (From Tylox) Allergy (Intermediate, Verified 04/04/25 10:43) RASH Sulfa (Sulfonamide Antibiotics) (SULFA (SULFONAMIDE ANTIBIOTICS)) Allergy (Intermediate, Verified 04/04/25 10:43) RASH lisinopril Adverse Reaction (Severe, Verified 04/04/25 10:43) contraindication sulfamethoxazole (From Bactrim) Adverse Reaction (Severe, Verified 04/04/25 10:43) Rash trimethoprim (From Bactrim) Adverse Reaction (Severe, Verified 04/04/25 10:43) Rash naproxen (NAPROXEN) Adverse Reaction (Intermediate, Verified 04/04/25 10:43) contraindication Tobacco use date assessed: 04/04/25 Fall risk assessment: 1 Fall in past year Last assessed Fall Risk: 04/04/25 Dental Screening Dental Screen Date: 04/04/25 Did you have a dental visit in the last 12 months?: No Did you have a dental problem in the last 6 months where you did not have access to dental care?: No Was dental information given to patient?: Patient declined HPI f/u diabetes HPI Details 74 y/o female presents to f/u diabetes. Prior A1c 01/22/25 6.7%. A1c today 04/04/25 is 7.2%. Reports morning blood sugar in the 160s. Does f/u with endo. She sees an reconciliation specialist for an eye exam once a year. BP today 128/74, 99p. She is on valsartan 40mg, spironolactone 25mg daily. HPI Comments History of Present Illness Details Documentation assistance for Monroe García MD, was provided by Jose Wilkins,? Commanding Officer Traffic Division on 04/04/2025 at 11:48 AM EST. I, Dr. García, have read, observed, and verified documentation. ?? [facility] Medical History Diabetic neuropathy Anemia Type 2 diabetes mellitus with unspecified complications Atherosclerotic cardiovascular disease Cardiac resynchronization therapy defibrillator (FLOW MACHINE OPERATOR-D) in place Surgical History History of colonoscopy H/O endoscopy History of implantable cardioverter-defibrillator (ICD) placement (~02/09/17) History of cardiac catheterization (~08/2015) History of umbilical hernia repair History of appendectomy History of cholecystectomy History of tubal ligation Family History (Updated 04/04/25 @ 10:45 by Yamilet Mazariegos CMA) Father Myocardial infarction Mother Uterine cancer Lung cancer Maternal Aunt Uterine cancer Mouth cancer Social History Housing: House Patient Tobacco Use Status: Never used Tobacco e-Cigarette/Vaping Use: Never Used Second Hand Smoke Exposure: No service: No Current occupational status: retired Current occupational exposures/hazards: No Cognitive needs: Yes Hearing needs: No Vision needs: Yes Questionnaire PHQ-9 Over the last 2 weeks, how often have you been bothered by any of the following problems? 1. Little interest or pleasure in doing things: not at all 2. Feeling down, depressed, or hopeless: not at all 3. Trouble falling or staying asleep, or sleeping too much: several days 4. Feeling tired or having little energy: nearly every day 5. Poor appetite or overeating: not at all 6. Feeling bad about yourself - or that you are a failure or have let yourself or your family down: not at all 7. Trouble concentrating on things, such as reading the newspaper or watching television: several days 8. Moving or speaking so slowly that other people could have noticed. Or the opposite - being so fidgety or restless that you have been moving around a lot more than usual: not at all 9. Thoughts that you would be better off or of hurting yourself in some way: not at all Total score: 5 Depression Screening Interpretation: Positive Depression Screening Done: Yes Source: Developed by Drs. Wicho Tucker, Sana Mendoza, Ta Moctezuma and colleagues, with an educational thai from [employer]. Thrive Questionnaire Date Thrive assessed: 11/13/24 I am a: Patient What is your living situation today?: I have a steady place to live Within the past 12 months, did the food you bought not last and you didn't have the money to get more?: Never true Within the past 12 months, did you worry whether your food would run out before you got money to buy more?: Never true Do you have trouble paying for medicines?: No Do you have trouble getting transportation to medical appointments?: No Do you have trouble paying your heating and electricity bill?: No Do you have trouble taking care of your child, family member or friend?: No Do you have trouble with day-to-day activities such as bathing, preparing meals, shopping, managing finances, etc.?: No Are you currently unemployed and looking for a job?: No Are you interested in more education?: No Please select the resources that you would like help with: None Currently or been in a relationship where the following occur: No concerns reported THRIVE Score: 0 AUDIT C Alcohol Use Questionnaire (AUDIT-C) 1. How often do you have a drink containing alcohol?: Never 3. How often do you have six or more drinks on one occasion?: Never Total Score: 0 DYLON-7 AMB Questionnaire DYLON-7 Date DYLON - 7 assessed: 11/13/24 Feeling nervous, anxious, or on edge: 0 = Not at all Not being able to stop or control worryin = Not at all Worrying too much about different things: 0 = Not at all Trouble relaxin = Not at all Being so restless that it is hard to sit still: 0 = Not at all Becoming easily annoyed or irritable: 0 = Not at all Feeling afraid as if something awful might happen: 0 = Not at all Total DYLON-7 score (0-4 normal; 5-9 mild; 10-14 moderate; 15-21 severe): 0 Source: Developed by Drs. Wicho Tucker, Sana Mendoza, Ta Moctezuma and colleagues, with an educational thai from [employer]. Review of Systems Const Denies chills, Denies fatigue, Denies fever(s), Denies headache(s) and Denies weakness ENT Denies dizziness and Denies headache(s) Card Denies chest pain, Denies lightheadedness, Denies dyspnea and Denies other (Palpitations) Resp Denies cough, Denies dyspnea, Denies wheezing and Denies other ( shortness of breath) Musc Denies numbness and Denies tingling Neuro Denies dizziness, Denies headache(s), Denies numbness, Denies tingling, Denies paresthesias and Denies weakness Psych Denies anxiety and Denies depression Endo Denies fatigue Aller/Immun Denies wheezing Physical exam (Primary Care) Vital Signs: Last Vital Signs Temp 98.2 F 04/04/25 10:40 Pulse 99 04/04/25 10:40 Resp 16 04/04/25 10:40 BP 128/74 04/04/25 10:40 Pulse Ox 99 04/04/25 10:40 Oxygen Delivery Method Room Air 04/04/25 10:40 BMI result Body Mass Index 38.8 Tobacco/Smoking Status: Tobacco use Status Tobacco use date assessed 04/04/25 04/04/25 10:47 Patient Tobacco Use Status Never used Tobacco 04/04/25 10:47 e-Cigarette/Vaping Use Never Used 04/04/25 10:47 PHQ-9: PHQ-9 Score PHQ-9: Total score 5 04/04/25 11:37 Depression Screening Interpretation: Positive Thrive Assessment: Date of Thrive Assessment Date Thrive assessed 11/13/24 04/04/25 10:47 Currently or been in a relationship where the following occur: No concerns reported Const General: no acute distress and well developed Nutritional Appearance: well nourished Orientation/consciousness: patient oriented x3 [facility] Head: Yes normocephalic and Yes atraumatic Eyes General: appearance normal, both eyes and all related structures Pupils: Equal, round and reactive pupils present EOM: EOMs intact bilaterally Resp Effort & Inspection: normal respiratory effort Auscultation: clear to auscultation bilaterally Cardio Rate: regular rate Rhythm: regular rhythm Heart sounds: S1 normal heart sound present, S2 normal heart sound present, no gallops, no murmurs and no rubs Neuro General: patient oriented x3 and gait normal Cranial nerves: Yes Equal, round and reactive pupils present Psych Affect: normal affect Results AMB Hemoglobin A1c AMB Hemoglobin A1c 7.2 % Last Edit by Yamilet Mazariegos CMA on 04/04/25 11:47 Coding Level of Care Code Est Pt Level 4 (56933) Diagnoses Type 2 diabetes mellitus with unspecified complications E11.8 Hypertension, essential I10 Atherosclerotic cardiovascular disease I25.10 Assessment & Plan Assessment & Plan (1) Type 2 diabetes mellitus with unspecified complications: Code(s): E11.8 - Type 2 diabetes mellitus with unspecified complications Category: Medical Plan: A1c 7.2% today. Morning blood sugars around 160 before she has eaten and goes up higher with breakfast. Taking Lantus 60 U, Lispro sliding scale and Jardiance as prescribed. Now has dexcom continues glucose monitor Will have her increase Lantus to 64 units q.p.m. Continue other diabetes medications as prescribed and follow-up with Endocrine Eye exam at [facility] in January. Up-to-date (2) Hypertension, essential: Code(s): I10 - Essential (primary) hypertension Category: Medical Plan: Blood pressure is well controlled. Goal is less than 130/80 Taking metoprolol, valsartan and spironolactone as prescribed. Continue current medications (3) Atherosclerotic cardiovascular disease: Code(s): I25.10 - Atherosclerotic heart disease of [place] coronary artery without angina pectoris Category: Medical Plan: Taking atorvastatin Stable Orders: Orders AMB Hemoglobin A1c Today Z13.9 - Encounter for screening, unspecified Medications: New fluconazole 150 mg PO Q3D 2 tabs 0RF 2 doses
[2025-04-04 10:40] VITALS: BP 128/74; PULSE 99; RESP 16; TEMP 36.8; O2SAT 99; BMI 38.8
--- OUTSIDE RECORDS SUMMARY | 2025-04-04 11:31 | XMS_ITS | Clinical Summary ---
Author Organization [facility] Facility Address [address] [address] Care Team Providers Care Dope Worker Name Role Phone Unavailable Primary Care Provider [...] [facility] [address] [place] [phone] Bereket Olivo MD [address] [phone] Health Maintenance Due Date Last [...] patient's age to complete this topic Insurance [facility] ([id number]) [place] [id number]
== END 2025-04-04 11:53 | disposition home or self-care (01) ==
LOC: HO.HMCFM 10:31
PROVIDERS: PCP Family Medicine; Visit Provider Family Medicine
DX: E11.8 Type 2 diabetes mellitus with unspecified complications (principal); I10 Essential (primary) hypertension; I25.10 Atherosclerotic heart disease of native coronary artery without angina pectoris; Z13.9 Encounter for screening, unspecified

== ENCOUNTER → 2025-04-04 10:23 | Outpatient (BNVA) | payer OTHER, SELFPAY | PROVIDERS: PCP Family Medicine; Visit Provider Family Medicine | DX: E11.9 Type 2 diabetes mellitus without complications (principal); I10 Essential (primary) hypertension; I25.10 Atherosclerotic heart disease of native coronary artery without angina pectoris | CPT/HCPCS: 83036; 96127; 99212 ==

== ENCOUNTER 2025-04-08 13:03 | Outpatient (AMB) | payer OTHER, SELFPAY ==
--- NOTE | 2025-04-08 13:19 | A.OFFVIS_ITS ---
Intake Intake Visit Reasons: 60 min Second Hand Paper Machine Required: No Accompanied by: Son Allergies Cephalosporins (CEPHALOSPORINS) Allergy (Intermediate, Verified 04/04/25 10:43) RASH oxycodone (From Tylox) Allergy (Intermediate, Verified 04/04/25 10:43) RASH Sulfa (Sulfonamide Antibiotics) (SULFA (SULFONAMIDE ANTIBIOTICS)) Allergy (Intermediate, Verified 04/04/25 10:43) RASH lisinopril Adverse Reaction (Severe, Verified 04/04/25 10:43) contraindication sulfamethoxazole (From Bactrim) Adverse Reaction (Severe, Verified 04/04/25 10:43) Rash trimethoprim (From Bactrim) Adverse Reaction (Severe, Verified 04/04/25 10:43) Rash naproxen (NAPROXEN) Adverse Reaction (Intermediate, Verified 04/04/25 10:43) contraindication HPI Comprehensive Diabetes Asmnt Most Recent Diabetes Results: 2 Microalb/Creat Ratio, (<30) 15.6 ug/mg cr 08/16/24 Cholesterol, (<200) 209 mg/dL H 08/16/24 HDL Cholesterol, (>40) 53 mg/dL 08/16/24 Triglycerides, (<150) 283 mg/dL H 08/16/24 Creatinine, (0.5-1.4) 1.38 mg/dL 08/16/24 BUN, (9-16) 23 mg/dL H 08/16/24 Sodium, (135-145) 140 mmol/L 08/16/24 Potassium, (3.3-5.1) 4.6 mmol/L 24 Chloride, (96-108) 104 mmol/L 08/16/24 Carbon Dioxide, (22-29) 28 mmol/L 24 Calcium, (8.4-10.2) 10.1 mg/dL 24 AST, (5-31) 50 U/L H 08/16/24 ALT, (0-31) 41 U/L H 08/16/24 Total Protein, (6.5-8.0) 8.1 g/dL H 08/16/24 Albumin, (3.5-5.0) 4.4 g/dL 08/16/24 [facility] Medical History Diabetic neuropathy Anemia Type 2 diabetes mellitus with unspecified complications Atherosclerotic cardiovascular disease Cardiac resynchronization therapy defibrillator (CLAIMS ANALYST-D) in place Surgical History History of colonoscopy H/O endoscopy History of implantable cardioverter-defibrillator (ICD) placement (~02/09/17) History of cardiac catheterization (~08/2015) History of umbilical hernia repair History of appendectomy History of cholecystectomy History of tubal ligation Family History (Updated 04/04/25 @ 10:45 by Yamilet Mazariegos CMA) Father Myocardial infarction Mother Uterine cancer Lung cancer Maternal Aunt Uterine cancer Mouth cancer Social History Housing: House Patient Tobacco Use Status: Never used Tobacco e-Cigarette/Vaping Use: Never Used Second Hand Smoke Exposure: No service: No Current occupational status: retired Current occupational exposures/hazards: No Cognitive needs: Yes Hearing needs: No Vision needs: Yes Assessment & Plan Assessment & Plan (1) Diabetes type 2, uncontrolled: Code(s): E11.65 - Type 2 diabetes mellitus with hyperglycemia Plan: Diabetes self-management education and support participation record Assessment/scale: 1= needs instructed? 2= needs review? 3= comprehend keep point? 4= demonstrates understanding/ competent? NC= Not Covered Topics Learning Objective: Initial visit Initial or post srvc Initial or post srvc Initial or post srvc Initial or post srvc Initial or post srvc Post srvc Comments Pre Edu-assessment/plan Outcome or reassess O utcome or reassess Outcome or reassess Outcome or reassess Outcome or reassess Outcome or reassess Diabetes pathophysiology 1 3 Healthy eating 1 3 Being active 1 Taking medication 1 3 Monitoring glucose 1 3 Acute complication 1 3 Chronic complicated 1 Lifestyle and healthy coping 1 Diabetes distress in support 1 ?Diabetes pathophysiology: ?Defined diabetes med identify own type of diabetes; list 3 options for treating diabetes Healthy eating: ?Described effect of type, amount and ?timing of food on blood glucose; list 3 methods for planning meal Being active: ?State effect of exercise on blood glucose level Taking medication: ?State effect of diabetes medications on diabetes; name diabetes medications taking, action and side effects Monitoring glucose: ?Identify recommended blood glucose targets and personal target Acute complication: ?List symptoms and treatment of hyper and hypoglycemia, DKA, sick day guidelines and guidelines for severe weather or situations of crisis and diabetes supply manage Chronic complication: ?To find the relationship of blood glucose levels to long- term complications of diabetes in screening and preventative measures Lifestyle and healthy coping: ?Described lifestyle and healthy coping strategies to rule out diabetes self-management Diabetes to stress and support: ?Recognize Diabetes to stress and be able to identified support options Learning objectives: The patient was provided with verbal and written education on the following topics as outlined below. Assess patient education level/literacy/barriers, patient's A1c on 04/04/2025 7.2% Patient provided Humalog sliding scale today's visit, while at PCP visit on 04/04/2025 PCP increase Lantus from 60 units to 64 units Glucose levels have improved since visit on 03/12/2025, still having postprandial hyperglycemia recommended they increase Humalog by 1 unit on each step of sliding scale. Recommended Humalog sliding scale: 70 to 119 mg/dL - 5 units 120 to 169 mg/dL- 7 units 170-219 mg/dL-9 units 220- 269 mg/dL- 11 units 270-319 mg/dL - 13 units 320 to 369 mg mg/dL - 15 units Greater than 370 mg/dL 17 units If patient begins to have postprandial hypoglycemia go back to original Humalog sliding scale. Patient's son stated in visit today that they do receive snap benefits, discussed with patient using [employer] benefit for fruits and vegetables. List of HIP vendors in [place] given to patient The patient met all learning objectives and was able to verbalize understanding and provide teach back of education topics discussed . The patient was provided with the opportunity to ask questions and all questions were answered. Topics covered in today?s session included: Medications (If applicable) * Name of medication? * Dosing/administration instructions? * Mechanism of action? * Potential side effects? * Potential adverse reaction and appropriate treatment? * Review onset, peak, duration Assess for concerns re: insurance coverage, cost, barriers to compliance Insulin/Injectables (If applicable) * Storage/care of insulin?? * Injection sites? * Site rotation? * Onset, peak, duration * Drawing up insulin? * Injecting insulin/other injectables? * Sharps disposal Continuous blood glucose monitoring (if applicable) Hypoglycemia and Hyperglycemia * Signs and symptoms? * Causes?? * Treatment? * Preventing hypoglycemia? * When to seek medical attention Target Goals: * Blood glucose targets and how you feel when your blood glucose is in and out of your target ranges. * Monitoring and knowing your A1C. * What can make blood glucose go up and down and preventing high and low blood glucose. * Review of blood sugar targets in expected goal range and outside of expected goal range. * Problem solving and preventing hyper/hypoglycemia. * Sick day management of diabetes. * Using blood sugar results in decision making process in managing diabetes. * Hypoglycemia or blood glucose under 70 use the rule of 15's: If you have your blood glucose meter test your blood glucose, if you do not have your meter still follow below instruction: Keep quick-sugar foods with you at all times.? Take 15 grams of fast acting carbohydrates. Examples are 4 ounces of fruit juice or regular soda pop, 8 ounces fat-free milk, 1 tablespoon of table sugar, honey or corn syrup, jam, one miniature box of raisins, 7-8 gumdrops or Life Savers candy, 4 glucose tablets, and glucose gel.? Retest blood glucose in 15 minutes, if blood glucose is still under 80 ,repeat rule of 15's. If blood glucose is under 50, take 30 grams of fast acting carbohydrates ?Patient was receptive to information provided and participated in the discussion. Asked?appropriate questions and demonstrated good understanding of the topics discussed.? ? Educational Materials: The patient was provided with the following written educational materials: Target Goal, rule of 15 handouts Smart Goal Assessment:? Patient will identify foods in current meal plan that contain carbohydrates Pt met goal 75% New Smart Goal: Patient will treat episodes of hypoglycemia with rule of 15s Patient Response to instructions: Comprehension of Instructions: good Readiness to make changes:? Contemplation How confident they feel about making changes:Positive Portions of this note were created using voice recognition software, please excuse any words or phrases that may have been misinterpreted. Smart Goal: Patient Response to instructions: Comprehension of Instructions: Fair Readiness to make changes: Contemplation How confident they feel about making changes: Positive Portions of this note were created using voice recognition software, please excuse any words or phrases that may have been misinterpreted. Coding Level of Care Code Est Pt Level 1 (09214) Diagnoses Diabetes type 2, uncontrolled E11.65
--- OUTSIDE RECORDS SUMMARY | 2025-04-08 13:59 | XMS_ITS | Clinical Summary ---
Author Organization [facility] Facility Address [address] [address] Care Team Providers Care Payroll Administrator Name Role Phone Unavailable Primary Care Provider [...] Office Visit [facility] [address] [place] [phone] Bereket Olivo MD [address] [phone] Health Maintenance Due Date Last [...] patient's age to complete this topic Insurance [facility] ([id number]) [place] [id number]
--- OUTSIDE RECORDS SUMMARY | 2025-05-03 20:00 | XMS_ITS | Clinical Summary ---
Author Organization Unknown Care Team Providers Care Cdl Bulk Driver Name Role Phone LATOYA MARTINEZ, SYLVAIN Unavailable Unavailable REY GRANT, [place] Unavailable Unavailable JOSUE RN, INGE Unavailable Unavailable Payers Payer Name Policy Type Policy Number Effective Date Expira tion Date [facility] [place] [id number] [place] [id number] ON DEMAND MEDICARE - [place] [id number] Problems Condition Name Condition Details Condition Category [...] 01-01 00:00: 00 ATHSCL HEART DISEASE OF [place] CORONARY ARTERY W/O ANG PCTRS Active 01-01 [...] 2020-08 00:00: 00 09-05 23:59 :00 No [id number] Per instruc tions TWO (2) TIMES A DAY TO 3 (THREE) TIMES A DAY Per instructio ns TWO (2) TIMES A DAY TO 3 (THREE) TIMES A DAY (route: topical) Med Classific ation: Antisepti cs and Disinfect ants Eliquis 5 mg tablet 03-11 00:00: 00 01-01 23:59 :00 No [id number] 1 tablet TWO (2) TIMES A DAY 1 tablet TWO (2) TIMES A DAY (route: oral) Med Classific ation: Hematolog ical Agents ferrous sulfate 324 mg (65 mg iron) tablet,jessica yed release 2020-08 00:00: 00 03-11 23:59 :00 No [id number] Per instruc tions DAILY Per instructio ns DAILY (route: oral) Med Classific ation: Electroly te Balance-N utritiona l Products gabapentin 400 mg capsule 2020-08 00:00: 00 03-11 23:59 :00 No [id number] Per instruc tions 3 (THREE) TIMES A DAY Per instructio ns 3 (THREE) TIMES A DAY (route: oral) Med Classific ation: Central Nervous System Agents metoprolol succinate ER 25 mg tablet,exte nded release 24 hr 2020-08 00:00: 00 03-11 23:59 :00 No [id number] Per instruc tions DAILY Per instructio ns DAILY (route: oral) Med Classific ation: Cardiovas cular Therapy Agents magnesium oxide 400 mg (241.3 mg magnesium) tablet 2020-08 00:00: 00 03-11 23:59 :00 No [id number] Per instruc tions DAILY Per instructio ns DAILY (route: oral) Med Classific ation: Electroly te Balance-N utritiona l Products atorvastati n 40 mg tablet 2020-08 00:00: 00 03-11 23:59 :00 No [id number] Per instruc tions DAILY Per instructio ns DAILY (route: oral) Med Classific ation: Cardiovas cular Therapy Agents isosorbide dinitrate 30 mg tablet 2020-08 00:00: 00 03-11 23:59 :00 No [id number] Per instruc tions TWO (2) TIMES A DAY Per instructio ns TWO (2) TIMES A DAY (route: oral) Med Classific ation: Cardiovas cular Therapy Agents clopidogrel 75 mg tablet 03-11 00:00: 00 01-01 23:59 :00 No [id number] 1 tablet DAILY 1 tablet DAILY (route: oral) Med Classific ation: Hematolog ical Agents torsemide 20 mg tablet 2020-08 00:00: 00 03-11 23:59 :00 No [id number] Per instruc tions DAILY Per instructio ns DAILY (route: oral) Med Classific ation: Cardiovas cular Therapy Agents pantoprazol e 20 mg tablet,jessica yed release 2020-08 00:00: 00 03-11 23:59 :00 No [id number] Per instruc tions DAILY Per instructio ns DAILY (route: oral) Med Classific ation: Gastroint estinal Therapy Agents Lantus Solostar U-100 Insulin 100 unit/mL (3 mL) subcutaneou s pen 2020-08 0 00:00: 00 03-11 23:59 :00 No [id number] Per instruc tions DAILY Per instructio ns DAILY (route: subcutaneo us) Med Classific ation: Endocrine acetaminoph en 325 mg tablet 03-11 00:00: 00 01-01 23:59 :00 No [id number] 2 tablet 3 TIMES DAILY 2 tablet 3 TIMES DAILY (route: oral) Med Classific ation: Analgesic , Anti-infl ammatory or Antipyret ic atorvastati n 80 mg tablet 03-11 00:00: 00 01-01 23:59 :00 No [id number] 1 tablet BEDTIME 1 tablet BEDTIME (route: oral) Med Classific ation: Cardiovas cular Therapy Agents duloxetine 20 mg capsule,del ayed release 03-11 00:00: 00 01-01 23:59 :00 No [id number] 2 capsule DAILY 2 capsule DAILY (route: oral) Med Classific ation: Central Nervous System Agents ferrous sulfate 325 mg (65 mg iron) tablet 03-11 00:00: 00 01-01 23:59 :00 No [id number] 1 tablet DAILY 1 tablet DAILY (route: oral) Med Classific ation: Electroly te Balance-N utritiona l Products furosemide 20 mg tablet 03-11 00:00: 00 04-19 23:59 :00 No [id number] 1 tablet DAILY 1 tablet DAILY (route: oral) Med Classific ation: Cardiovas cular Therapy Agents gabapentin 100 mg capsule 03-11 00:00: 00 01-01 23:59 :00 No [id number] 2 capsule 3 TIMES DAILY 2 capsule 3 TIMES DAILY (route: oral) Med Classific ation: Central Nervous System Agents Lantus Solostar U-100 Insulin 100 unit/mL (3 mL) subcutaneou s pen 03-11 00:00: 00 01-01 23:59 :00 No [id number] 20 unit BEDTIME 20 unit BEDTIME (route: subcutaneo ) Med Classific ation: Endocrine melatonin 5 mg capsule 03-11 00:00: 00 01-01 23:59 :00 No [id number] 1 capsule DAILY 1 capsule DAILY (route: oral) Med Classific ation: Central Nervous System Agents metoprolol succinate ER 50 mg tablet,exte nded release 24 hr 03-11 00:00: 00 01-01 23:59 :00 No [id number] 1 tablet DAILY 1 tablet DAILY (route: oral) Med Classific ation: Cardiovas cular Therapy Agents mirtazapine 15 mg disintegrat ing tablet 03-11 00:00: 00 01-01 23:59 :00 No [id number] 1 tablet BEDTIME 1 tablet BEDTIME (route: oral) Med Classific ation: Central Nervous System Agents multivitami n tablet 03-11 00:00: 00 01-01 23:59 :00 No [id number] 1 tablet DAILY 1 tablet DAILY (route: oral) Med Classific ation: Electroly te Balance-N utritiona l Products Nitrostat 0.4 mg sublingual tablet 03-11 00:00: 00 01-01 23:59 :00 No [id number] 1 tablet NEEDED 1 tablet NEEDED (route: sublingual ) Med Classific ation: Cardiovas cular Therapy Agents pantoprazol e 40 mg tablet,jessica yed release 03-11 00:00: 00 01-01 23:59 :00 No [id number] 1 tablet DAILY 1 tablet DAILY (route: oral) Med Classific ation: Gastroint estinal Therapy Agents quetiapine 200 mg tablet 03-11 00:00: 00 11-02 23:59 :00 No [id number] 1 tablet BEDTIME 1 tablet BEDTIME (route: oral) Med Classific ation: Central Nervous System Agents Senna Laxative 8.6 mg tablet 03-11 00:00: 00 01-01 23:59 :00 No [id number] 2 tablet DAILY 2 tablet DAILY (route: oral) Med Classific ation: Gastroint estinal Therapy Agents valsartan 40 mg tablet 03-11 00:00: 00 01-01 23:59 :00 No [id number] 1 tablet DAILY 1 tablet DAILY (route: oral) Med Classific ation: Cardiovas cular Therapy Agents Lasix 40 mg tablet 04-19 00:00: 00 05-09 23:59 :00 No [id number] 1 tablet DAILY 1 tablet DAILY (route: oral) Med Classific ation: Cardiovas cular Therapy Agents Lasix 20 mg tablet 05-10 00:00: 00 11-02 23:59 :00 No [id number] 1 tablet DAILY 1 tablet DAILY (route: oral) Med Classific ation: Cardiovas cular Therapy Agents Seroquel 100 mg tablet 05-10 00:00: 00 11-02 23:59 :00 No [id number] 1 tablet BEDTIME 1 tablet BEDTIME (route: oral) Med Classific ation: Central Nervous System Agents Jardiance 10 mg tablet 2022-08 00:00: 00 01-01 23:59 :00 No [id number] 1 tablet DAILY 1 tablet DAILY (route: oral) Med Classific ation: Endocrine Seroquel 100 mg tablet 11-05 00:00: 00 01-01 23:59 :00 No [id number] 3 tablet BEDTIME 3 tablet BEDTIME (route: oral) Med Classific ation: Central Nervous System Agents torsemide 20 mg tablet 11-05 00:00: 00 01-01 23:59 :00 No [id number] 1 tablet DAILY 1 tablet DAILY (route: oral) Med Classific ation: Cardiovas cular Therapy Agents isosorbide mononitrate ER 60 mg tablet,exte nded release 24 hr 2023-08 00:00: 00 01-01 23:59 :00 No [id number] 1 tablet DAILY 1 tablet DAILY (route: oral) Med Classific ation: Cardiovas cular Therapy Agents acetaminoph en 325 mg capsule 01-05 00:00: 00 Yes [id number] 3 capsule 3 TIMES DAILY 3 capsule 3 TIMES DAILY (route: oral) Med Classific ation: Analgesic , Anti-infl ammatory or Antipyret ic atorvastati n 80 mg tablet 01-05 00:00: 00 Yes [id number] 1 tablet EVERY AM 1 tablet EVERY AM (route: oral) Med Classific ation: Cardiovas cular Therapy Agents carbidopa 25 mg-levodopa 100 mg tablet 01-05 00:00: 00 Yes [id number] 1 tablet 2 TIMES DAILY 1 tablet 2 TIMES DAILY (route: oral) Med Classific ation: Central Nervous System Agents clopidogrel 75 mg tablet 01-05 00:00: 00 Yes [id number] 1 tablet EVERY AM 1 tablet EVERY AM (route: oral) Med Classific ation: Hematolog ical Agents duloxetine 20 mg capsule,del ayed release 01-05 00:00: 00 Yes [id number] 2 capsule EVERY AM 2 capsule EVERY AM (route: oral) Med Classific ation: Central Nervous System Agents Eliquis 5 mg tablet 01-05 00:00: 00 Yes [id number] 1 tablet 2 TIMES DAILY 1 tablet 2 TIMES DAILY (route: oral) Med Classific ation: Hematolog ical Agents ferrous sulfate 325 mg (65 mg iron) tablet 01-05 00:00: 00 Yes [id number] 1 tablet EVERY AM 1 tablet EVERY AM (route: oral) Med Classific ation: Electroly te Balance-N utritiona l Products gabapentin 100 mg capsule 01-05 00:00: 00 Yes [id number] 2 capsule 3 TIMES DAILY 2 capsule 3 TIMES DAILY (route: oral) Med Classific ation: Central Nervous System Agents Humalog KwikPen (U-100) Insulin 100 unit/mL subcutaneou s 01-05 00:00: 00 Yes [id number] Per instruc tions 3 TIMES DAILY Per instructio ns 3 TIMES DAILY (route: subcutaneo us) Med Classific ation: Endocrine Jardiance 10 mg tablet 01-05 00:00: 00 Yes [id number] 1 tablet EVERY AM 1 tablet EVERY AM (route: oral) Med Classific ation: Endocrine melatonin 5 mg capsule 01-05 00:00: 00 Yes [id number] 1 capsule BEDTIME 1 capsule BEDTIME (route: oral) Med Classific ation: Central Nervous System Agents metoprolol succinate ER 25 mg tablet,exte nded release 24 hr 01-05 00:00: 00 Yes [id number] 1 tablet EVERY AM 1 tablet EVERY AM (route: oral) Med Classific ation: Cardiovas cular Therapy Agents Miralax 17 gram oral powder packet 01-05 00:00: 00 Yes [id number] 1 packet EVERY AM 1 packet EVERY AM (route: oral) Med Classific ation: Gastroint estinal Therapy Agents mirtazapine 15 mg tablet 01-05 00:00: 00 Yes [id number] 1 tablet EVERY AM 1 tablet EVERY AM (route: oral) Med Classific ation: Central Nervous System Agents Multiple Vitamins tablet 01-05 00:00: 00 Yes [id number] 1 tablet EVERY AM 1 tablet EVERY AM (route: oral) Med Classific ation: Electroly te Balance-N utritiona l Products omeprazole 20 mg capsule,del ayed release 01-05 00:00: 00 Yes [id number] 2 capsule EVERY AM 2 capsule EVERY AM (route: oral) Med Classific ation: Gastroint estinal Therapy Agents quetiapine 100 mg tablet 01-05 00:00: 00 Yes [id number] 2 tablet BEDTIME 2 tablet BEDTIME (route: oral) Med Classific ation: Central Nervous System Agents Semglee (insulin glargine-yf gn) 100 unit/mL subcutaneou s solution 01-05 00:00: 00 Yes [id number] 65 unit BEDTIME 65 unit BEDTIME (route: [...] Observation Time Observation Value Commen ts Temperature 2025-04-05 08:43:00.000 97.9 [degF] Temperature 2025-04-03 [...] [degF] Temperature 2025-03-06 08:00:00.000 97.9 [degF] Pulse 2025-04-05 08:43:00.000 76 /min Pulse 2025-04-03 [...] 2025-03-06 08:00:00.000 74 /min O2 Saturation (%) 2025-04-05 08:43:00.000 98 % [...] Saturation (%) 2025-03-06 08:01:00.000 98 % Respirations 2025-04-05 08:43:00.000 20 /min Respirations 2025-04-03 [...] Respirations 2025-03-06 08:00:00.000 20 /min Weight (lbs) 2025-04-05 08:43:00.000 215 [lb_av] Weight [...] 2025-03-06 08:01:00.000 215 [lb_av] Systolic Blood Pressure 2025-04-05 08:43:00.000 108 mm [...] 08:00:00.000 129 mm [Hg] Diastolic Blood Pressure 2025-04-05 08:43:00.000 [...] AWARENESS FOR SAFETY AND WILL NOTIFY CLINICAL SALES PRODUCT MANAGER AND PHYSICIAN/PROVIDER WITH ANY CHANGE IN CONDITION. [code = SKILLED NURSE WILL MAINTAIN SITUATIONAL AWARENESS FOR SAFETY AND WILL NOTIFY CLINICAL SALES PRODUCT MANAGER AND PHYSICIAN/PROVIDER WITH ANY CHANGE IN CONDITION.] [...] CARE WILL BE ESTABLISHED THAT MEETS PATIENT'S SHELTER NEEDS AND INCLUDES PATIENT GOAL FOR HOME [...] PERIOD. Progress Notes Progress Notes <paragraph>[Visit Date: 2024 by SHAN MORAN ([facility]) [facility] - [facility]]:</paragraph><paragraph>,OT VISIT FOR 04-05-25. SKILLED OT PROVIDED THIS VISIT. PATIENT UP AND READY FOR OT ARRIVAL . PATIENT REPORTS SOME LEFT HIP DISCOMFORT, CHRONIC. PATIENT PARTICIPATED IN FUNCTIONAL STRENGTHENING EX TO IMPROVEADL TOLERANCE, BALANCE AND STAMINA. PATIENT COMPLETED 1 POUND THER EX IN SEATED AND STANDING WITH SBA AND VERBAL CUES AND VISUAL CUES. PATIENT ABLE TO PERFORM DYNAMIC STANDING FOR 50 PERCENT OF PRESENTED TASK WITH SUPEVISION ONLY AND NO OBSERVED LOB. PATIENT IS ABLE TO SELF PACE EFFECTIVELY WITHOUT CUEING. BARRIERS: LOW VISION, PAIN WEAKNESS. WITH CONTINUED SKILLED OT SERVICES, PATIENT HAS POTENTIAL TO FURTHER IMPROVE FUNCTIONAL INDEP AND SAFETY. DC PLANNING ONGOING. PATIENT REMAINS HOMEBOUND DUE TO TAXING EFFORT TO LEAVE HOME AND ASSIST OF ANOTHER PERSON DUE TO WEAKNESS AND LOW VISION.</paragraph> Encounters Start Date/Time End Date/Time Encounter Type Admission Type Attending Clinicians [facility] [place] Facility Care Department Encounter ID Discharge Date Discharge Status Discharge Condition Discharge Reason Percent Goals Met 2025-03-06 00:00:00 2025-05-04 00:00:00 Outpatient RECERTIFIC ATION [place] [facility] [id number] 22.86
== END 2025-04-08 13:51 | disposition home or self-care (01) ==
LOC: HO.ENCR 13:04
PROVIDERS: PCP Family Medicine; Visit Provider Registered Nurse Diabetes Educator
DX: E11.65 Type 2 diabetes mellitus with hyperglycemia (principal)

== ENCOUNTER → 2025-04-08 13:03 | Outpatient (BNVA) | payer OTHER, SELFPAY | PROVIDERS: PCP Family Medicine; Visit Provider Registered Nurse Diabetes Educator | DX: E11.65 Type 2 diabetes mellitus with hyperglycemia (principal); Z79.4 Long term (current) use of insulin | CPT/HCPCS: 99211 ==

== ENCOUNTER 2025-04-17 12:09 | Outpatient (REF) | payer OTHER, SELFPAY ==
[2025-04-18 04:35] LABS: Bacterial Vaginosis PCR POSITIVE (Negative); Candida Group PCR NOT DETECTED (Not Detect); Candida glab krusei PCR DETECTED (Not Detect); Trichomonas vaginalis PCR NOT DETECTED (Not Detect)
== END 2025-04-17 12:10 | disposition home or self-care (01) ==
LOC: HO.LAB 12:09
PROVIDERS: PCP Family Medicine; Visit Provider Nurse Practitioner Family
DX: N89.8 Other specified noninflammatory disorders of vagina (principal); R30.0 Dysuria; E11.8 Type 2 diabetes mellitus with unspecified complications; M54.50 Low back pain, unspecified; Z79.01 Long term (current) use of anticoagulants; Z79.4 Long term (current) use of insulin; Z79.899 Other long term (current) drug therapy; Z87.440 Personal history of urinary (tract) infections
CPT/HCPCS: 81002; 81515; 87086; 99212

== ENCOUNTER 2025-04-17 12:09 | Outpatient (AMB) | payer OTHER, SELFPAY ==
--- NOTE | 2025-04-17 12:26 | A.OFFPC_ITS ---
Vital Signs 04/17/25 12:30 Height 5 ft 3 in Weight 216 lb 2 oz BMI 38.3 BP 136/74 Blood Pressure Location Rt brachial Position Sitting Respiration 13 Pulse 88 Pulse Source Pulse Oximeter Temp 97.2 F Temp Source Oral Pulse Oximetry (%) 96 Oxygen Delivery Method Room Air Intake Visit Reasons: Appt today or tomorrow UTI Intake Note: Patient c/o burning when urinating and itching x 2 weeks Manager Inventory Required: No Allergies Cephalosporins (CEPHALOSPORINS) Allergy (Intermediate, Verified 04/17/25 12:53) RASH oxycodone (From Tylox) Allergy (Intermediate, Verified 04/17/25 12:53) RASH Sulfa (Sulfonamide Antibiotics) (SULFA (SULFONAMIDE ANTIBIOTICS)) Allergy (Intermediate, Verified 04/17/25 12:53) RASH lisinopril Adverse Reaction (Severe, Verified 04/17/25 12:53) contraindication sulfamethoxazole (From Bactrim) Adverse Reaction (Severe, Verified 04/17/25 12:53) Rash trimethoprim (From Bactrim) Adverse Reaction (Severe, Verified 04/17/25 12:53) Rash naproxen (NAPROXEN) Adverse Reaction (Intermediate, Verified 04/17/25 12:53) contraindication Medication List - Last Reconciled 04/17/25 by RAY Cardoso- acetaminophen 325 mg PO QID PRN apixaban (Eliquis) 5 mg PO BID 30 days atorvastatin 80 mg (2 x 40 mg) PO DAILY 30 days blood sugar diagnostic (FreeStyle Lite Strips) As directed TID blood-glucose meter (FreeStyle Lite Meter kit) As directed blood-glucose sensor (FreeStyle Danica 3 Plus Sensor device) every 15 days for use with reader carbidopa-levodopa 25-100 mg 1 tab PO BID 30 days carbidopa-levodopa 25-100 mg ER 1 tab PO BID 30 days [chair lift Use chair lift daily as directed.; (height 5'3'') (weight 218 lbs) ] chair, wheel (Wheel chair) Lightweight Wheel Chair. Daily, As directed, 999 days clopidogrel 75 mg PO DAILY 30 days clotrimazole 1% 1 appl topical BID 2 weeks compr.stocking,knee,long,large As directed, 90 days [diabetic shoes with insoles for heel pain and peripheral neuropathy] diaper,brief,adult,disposable (Disposable Brief Jumbo X-Large) As directed duloxetine 40 mg (2 x 20 mg) PO QAM empagliflozin (Jardiance) 25 mg PO DAILY ferrous fumarate 325 mg PO DAILY 30 days fluconazole 150 mg PO Q3D 2 doses FreeStyle Danica 3 [place] (blood-glucose,senior digital designer,cont) As directed NS FreeStyle Danica 3 [place] (blood-glucose,senior digital designer,cont) As directed for use with sensors NS gabapentin 200 mg (2 x 100 mg) PO TID 30 days glucagon 3 mg/actuation (Baqsimi) 3 mg intranasal ONCE PRN 30 days MDD 6mg insulin aspart U-100 (Novolog FlexPen U-100 Insulin aspart) subcutaneously use as directed; 151-200 Give 2 units 201-250 Give 4 units 251-300 Give 6 units 301- 350 Give 8 units 351-400 Give 10 units 401-450 Give 12 units > 450 Give 12 units & call MD 30 days insulin glargine (Lantus Solostar U-100 Insulin) 60 units (0.6 mL) subcut DAILY 30 days lancets (FreeStyle Lancets) As directed melatonin 5 mg PO BEDTIME PRN 30 days metoprolol succinate ER 50 mg (2 x 25 mg) PO DAILY 30 days mirtazapine 15 mg PO BEDTIME 30 days miscellaneous medical supply Lift Chair. Daily As directed, 999 days gmbibbca-jjeh-YE-calcium-mins 9 mg iron-400 mcg 1 tab PO DAILY 30 days nitroglycerin (Nitrostat) 0.4 mg sublingual Q5M PRN 1 month pantoprazole 40 mg (2 x 20 mg) PO DAILY 30 days pen needle, diabetic (BD Ultra-Fine Micro Pen Needle) To treat BS 4 times a day, As directed, 90 days phenazopyridine (Pyridium) 100 mg PO TID PRN 2 days quetiapine 300 mg (3 x 100 mg) PO BEDTIME sennosides-docusate sodium 8.6-50 mg (Senexon-S) 1 tab-cap PO BEDTIME spironolactone 25 mg PO DAILY torsemide 30 mg (1.5 x 20 mg) PO DAILY 90 days valsartan 40 mg PO DAILY 30 days walker (Ultra-Light Rollator [facility] [place] Rollator?walker?with?seat?and?brakes.??Daily?As directed, 999 days Tobacco use date assessed: 04/17/25 Fall risk assessment: 2 + Falls in past year Last assessed Fall Risk: 04/17/25 Dental Screening Dental Screen Date: 04/17/25 Did you have a dental visit in the last 12 months?: Yes Did you have a dental problem in the last 6 months where you did not have access to dental care?: No Was dental information given to patient?: Patient has dentist HPI HPI Comments History of Present Illness Details History of Present Illness - The patient is a 74-year-old female wi th DM, Hx of UTI presenting with urinary symptoms and back pain. - Urinary symptoms include itchiness and burning, ongoing for a few months. - tx by PCP w/ diflucan w/o relief + incont, denies use of powder does use incont cream Saw Renal 1 week ago New onset L low back/hip pain. denies radiation into the abd. Mild nausea, ongoing for months. No vomiting. - History of urinary tract infection in October 2024, Culture reviewed. - Known history of diabetes, managed roxanna Hurtado. Review of Systems - Genitourinary: Reports urinary burning , itchiness. Denies discharge, fever. - Musculoskeletal: Reports back pain; ne w onset recently. - Gastrointestinal: Reports nausea; jody es vomiting. - Endocrine: Reports diabetes, on Jardia nce. - General: Denies fever, chills. Physical Exam General: Well developed, well nourished, in no acute distress. Accompanied by caregiver Head: Normocephalic, atraumatic. Lungs: Clear to auscultation bilaterally. No rales, rhonchi or wheeze noted. Good air flow in all sanders. Heart: Regular rate and rhythm. No murmurs, click, rubs or gallops are noted. Abdomen: Bowel sounds present in all quadrants. The abdomen is soft, nontender, with no masses or organomegaly noted. No hernias are noted. No CVAT bilat. : Incont of urine, BV swab obtained, + odor and white d/c noted. 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 Pain w/ palpation over L posterior low back into the pelvis., Normal gait, Left left neurovasc intact. Pulses: Peripheral pulses are equal and palpable bilaterally. Extremities: No clubbing, cyanosis nor edema is noted. Psych: Mood and affect appropriate. Results - Labs: Urine dip test showed glucose pr esence and minimal bacteria, consistent with Jardiance intake Discussion Notes The patient's urinary symptoms are suspected to be due to either a new urinary tract infection or a yeast infection. Given her history of unusual bacteria in October, I plan to send the urine sample to the lab for a proper culture and sensitivity test to determine if antibiotics are necessary. Additionally, a swab test was considered for further microbial identification. The possibility of back pain originating from kidney issues or musculoskeletal origin was considered, and further evaluation was suggested. The patient was advised to wait for the lab results before starting any new treatment. She was informed about the time frame of up to 72 hours for urine results and 24 hours for the swab test. The patient was advised to keep in touch for updates on the results and treatment options once the data is available. Patient was given time to ask questions. All questions were answered to their satisfaction. Assessment and Plan - Perform urine culture and sensitivity for precise treatment. - Conduct swab test if needed for furthe r pathogen identification. 2. Diabetes Mellitus Type 2 - Maintain Jardiance therapy. Monitor gl ucose. 3. Lower Back Pain - Evaluate kidney/musculoskeletal causes . Monitor symptoms. Patient Instructions - Wait for the lab results for proper tr eatment. Vaginal hygeine, proper hydration. If Low back pain cont, fu with PCP - Keep hydrated and monitor urinary symp toms. - Report any increasing pain or new symp toms. - Follow up for results in 24-72 hours. I will call w/ results and tx as approp. Consent Patient was informed and verbally consented to the use of an ambient scribe for clinic note documentation during this visit. Total time spent caring for the patient today was 30 minutes. This includes time spent before the visit reviewing the chart, time spent during the visit, and time spent after the visit on documentation, reviewing laboratory results, diagnostic imaging, medications, performing a medically necessary evaluation, counseling on diagnoses, care coordination, ordering appropriate tests, ordering appropriate medications, review of tests performed by other providers, reporting test results with the patient, communication with other healthcare providers. [facility] Medical History Diabetic neuropathy Anemia Type 2 diabetes mellitus with unspecified complications Atherosclerotic cardiovascular disease Cardiac resynchronization therapy defibrillator (GRAND SCRIBE-D) in place Surgical History History of colonoscopy H/O endoscopy History of implantable cardioverter-defibrillator (ICD) placement (~02/09/17) History of cardiac catheterization (~08/2015) History of umbilical hernia repair History of appendectomy History of cholecystectomy History of tubal ligation Family History (Updated 04/04/25 @ 10:45 by Yamilet Mazariegos CMA) Father Myocardial infarction Mother Uterine cancer Lung cancer Maternal Aunt Uterine cancer Mouth cancer Social History Housing: House Patient Tobacco Use Status: Never used Tobacco e-Cigarette/Vaping Use: Never Used Second Hand Smoke Exposure: No service: No Current occupational status: retired Current occupational exposures/hazards: No Cognitive needs: Yes Hearing needs: No Vision needs: Yes Questionnaire Thrive Questionnaire Date Thrive assessed: 11/13/24 DYLON-7 AMB Questionnaire DYLON-7 Date DYLON - 7 assessed: 11/13/24 Source: Developed by Drs. Wicho Tucker, Sana Mendoza, Ta Moctezuma and colleagues, with an educational thai from [employer]. Physical exam (Primary Care) Vital Signs: Last Vital Signs Temp 97.2 F 04/17/25 12:30 Pulse 88 04/17/25 12:30 Resp 13 04/17/25 12:30 BP 136/74 04/17/25 12:30 Pulse Ox 96 04/17/25 12:30 Oxygen Delivery Method Room Air 04/17/25 12:30 BMI result Body Mass Index 38.3 Tobacco/Smoking Status: Tobacco use Status Tobacco use date assessed 04/17/25 04/17/25 12:29 Patient Tobacco Use Status Never used Tobacco 04/17/25 12:29 e-Cigarette/Vaping Use Never Used 04/17/25 12:29 Thrive Assessment: Date of Thrive Assessment Date Thrive assessed 11/13/24 04/17/25 12:29 Results AMB Urinalysis Dipstick UR Leukocytes Negative Last Edit by Kaylyn Tamez CMA on 04/17/25 12:47 UR Nitrite Negative Last Edit by Kaylyn Tamez CMA on 04/17/25 12:47 UR Urobilinogen Normal Last Edit by Kaylyn Tamez CMA on 04/17/25 12:47 UR Protein Negative Last Edit by Kaylyn Tamez CMA on 04/17/25 12:47 UR Ph 5.5 Last Edit by Kaylyn Tamez, ROE on 04/17/25 12:47 UR Blood Negative Last Edit by Kaylyn Tamez, ROE on 04/17/25 12:47 UR Specific Silas 1.010 Last Edit by Kaylyn Tamez, ROE on 04/17/25 12: 47 UR Ketone Negative Last Edit by Kaylyn Tamez, SPOUT TENDER on 04/17/25 12:47 UR Bilirubin Negative Last Edit by Kaylyn Tamez, SPOUT TENDER on 04/17/25 12:47 UR Glucose 500 Last Edit by Kaylyn Tamez CMA on 04/17/25 12:47 Results Reviewed Results Reviewed: Laboratory Last Values Urine pH (Clinic) 5.5 04/17/25 12:37 Specific Silas (Clinic) 1.010 04/17/25 12:37 Ur Protein (Clinic) Negative 04/17/25 12:37 Ur Ketones (Clinic) Negative 04/17/25 12:37 Urine Blood (Clinic) Negative 04/17/25 12:37 Urine Nitrite Negative 04/17/25 12:37 Urine Bilirubin (Clinic) Negative 04/17/25 12:37 Urobilinogen (Clinic) Normal 04/17/25 12:37 Leukocyte Esterase (Clinic) Negative 04/17/25 12:37 Urine Glucose (Clinic) 500 04/17/25 12:37 Coding Level of Care Code Est Pt Level 4 (09853) Complex EM visit Add On G2211 Diagnoses Dysuria R30.0 Vagina itching N89.8 Hx: UTI (urinary tract infection) Z87.440 Type 2 diabetes mellitus with unspecified complications E11.8 Acute left-sided low back pain without sciatica M54.50 Chronicity: acute Sciatica presence: without sciatica Assessment & Plan Assessment & Plan (1) Dysuria: Code(s): R30.0 - Dysuria Category: Medical (2) Vagina itching: Code(s): N89.8 - Other specified noninflammatory disorders of vagina Category: Medical (3) Hx: UTI (urinary tract infection): Code(s): Z87.440 - Personal history of urinary (tract) infections Category: Medical (4) Type 2 diabetes mellitus with unspecified complications: Code(s): E11.8 - Type 2 diabetes mellitus with unspecified complications Category: Medical (5) Left low back pain: Code(s): M54.50 - Low back pain, unspecified Category: Medical Qualifiers: Chronicity: acute Sciatica presence: without sciatica Qualified Code(s): M54.50 - Low back pain, unspecified Plan . Orders: Orders Urine Culture Today N89.8 - Other specified noninflammatory disorders of vagina, R30.0 - Dysuria, Z87.440 - Personal history of urinary (tract) infections Bacterial Vaginosis Panel Today N89.8 - Other specified noninflammatory disorders of vagina, R30.0 - Dysuria, Z87.440 - Personal history of urinary (tract) infections AMB Urinalysis Dipstick Today R30.9 - Painful micturition, unspecified
[2025-04-17 12:30] VITALS: BP 136/74; PULSE 88; RESP 13; TEMP 36.2; O2SAT 96; BMI 38.3
--- OUTSIDE RECORDS SUMMARY | 2025-04-17 12:54 | XMS_ITS | Encounter Summary ---
Author Organization [facility], Address [address] [place] [address] Phone Care Team Providers Care Dead Mail Checker Name Role Phone Monroe García MD Primary Care Provider [phone] Reason for Visit * Reason Comments Med Refill Encounter Details Date Type Department Care Team (Late st Contact Info) Description 09/22/2021 Refill [facility] [address] [place] [phone] Kenna Plummer MD Social History Tobacco Use Types Packs/Day Years Used Date Smoking Tobacco: Never Assessed Comments Unknown Sex and Gender Information Value Date Recorded Sex Assigned at Not on file Legal Sex Female 2:06 PM EDT Gender Identity Not on file Sexual Orientation Not on file documented as of this encounter Plan of Treatment Upcoming Encounters Date Type Department Care Team (Late st Contact Info) Description 07/11/2025 2:45 PM EST Office Visit [facility] [address]. [address] [place] [phone] Bereket Olivo MD [address] [phone] documented as of this encounter Visit Diagnoses Not on filedocumented in this encounter Care Teams Dead Mail Checker Relationship Specialty Start Date End Date Monroe García MD [address] [facility] [address] [place] [address] [phone] PCP - General Family Medicine 04/11/25 documented as of this encounter
--- OUTSIDE RECORDS SUMMARY | 2025-04-17 12:54 | XMS_ITS | Clinical Summary ---
Author Organization [facility] Address [address] [place] [phone] Phone Care Team Providers Care Air Surveillance Operator Name Role Phone Monroe García MD Primary Care Provider Allergies Active Allergy Reactions Criticality Noted Date Comments Cephalosporins 03/18/2025 Hydrocodone 01/08/2025 Lisinopril 01/08/2025 Other Reaction(s): LUDY Naproxen 01/05/2025 Sulfamethoxazole-Trimethoprim 2024 Medications Eliquis 5 MG tablet Take 5 mg by mouth in the morning and 5 mg in the evening. Active atorvastatin (LIPITOR) 80 MG tablet Take 80 mg by mouth 1 (one) time each day 5 Active carbidopa-levod opa CR (SINEMET CR) 25-100 MG per CR tablet TAKE 1 TABLET BY MOUTH two (2) times a day. TAKE 1/2 HOUR BEFORE BREAKFAST AND 1/2 HOUR BEFORE LUNCH. MAY TAKE WITH cracker 5 Active citalopram (CeleXA) 20 MG tablet Take 1 tablet every day by oral route. 0 Active clopidogrel (PLAVIX) 75 MG tablet Take 1 tablet every day by oral route. Active Continuous Glucose Visual Basic Programmer (CarHoundStyle Danica 3 [place]) device As directed for use with sensors 5 Active DULoxetine (CYMBALTA) [address] capsule take 2 capsules by mouth every morning 5 Active Jardiance 10 MG tablet Take by mouth every morning Active Ferretts 325 (106 Fe) MG tablet Take 1 tablet by mouth 1 (one) time each day 5 Active gabapentin (NEURONTIN) 100 MG capsule Take 200 mg by mouth in the morning and 200 mg at noon and 200 mg in the evening. 5 Active NovoLOG FLEXPEN 100 UNIT/ML injection Inject 20 units 3 times a day by subcutaneous route before meals. 0 Active Lantus SoloStar 100 UNIT/ML injection Inject 60 Units under the skin 1 (one) time each day Active isosorbide mononitrate (IMDUR) 60 MG 24 hr tablet Take 60 mg by mouth Active losartan (COZAAR) 50 MG tablet Take 1 tablet every day by oral route. Active Melatonin 5 MG tablet Take 1 tablet by mouth at night if needed 5 Active mirtazapine (REMERON) 15 MG tablet Take 15 mg by mouth at bed time 5 Active QUEtiapine (SEROquel) 100 MG tablet Take 300 mg by mouth at bed time Active spironolactone (ALDACTONE) 25 MG tablet Take 25 mg by mouth 1 (one) time each day Active torsemide (DEMADEX) 20 MG tablet Take 30 mg by mouth 1 (one) time each day Active Active Problems Problem Noted Date Diagnosed Date [...] 2 diabetes mellitus 03/15/2025 Myocardial infarction 01/17/2013 Encounters Date Type Department Care Team Description 04/11/2025 10:45 AM EDT Office Visit [facility] [address] [phone] Bereket Olivo MD Other acute kidney failure (HCC) (Primary Dx); Heart failure with reduced ejection fraction (HCC); Diabetes mellitus, not otherwise specified (HCC); Hypertension; Stage 3 chronic kidney disease, not otherwise specified (HCC) from Last 3 Months Social History Tobacco Use Types Packs/Day Years Used Date Smoking Tobacco: Never Assessed Comments Unknown Sex and Gender Information Value Date Recorded Sex Assigned at Not on file Legal Sex Female 2:06 PM EDT Gender Identity Not on file Sexual Orientation Not on file Last Filed Vital Signs Vital Sign Reading Time Taken Comments Blood Pressure 100/60 04/11/2025 11:04 AM EDT Pulse 80 04/11/2025 11:04 AM EDT Temperature - - Respiratory Rate - - Oxygen Saturation - - Inhaled Oxygen Concentration - - Weight 99.3 kg (219 lb) 04/11/2025 11:04 AM EDT Height - - Body Mass Index - - Plan of Treatment Upcoming Encounters Date Type Department Care Team (Late st Contact Info) Description 07/11/2025 2:45 PM EST Office Visit [facility] [address] [phone] Bereket Olivo MD [address] [phone] Health Maintenance Due Date Last Done Comments [...] on patient's age to complete this topic Procedures Procedure Name Priority Date/Time Associated Diagnosis Comments PTH, INTACT Routine 04/16/2025 11:17 AM EDT Other acute kidney failure (HCC) VITAMIN D 25 HYDROXY Routine 04/16/2025 11:17 AM EDT Other acute kidney failure (HCC) URINE ALBUMIN / CREATININE RATIO Routine 04/16/2025 11:17 AM EDT Other acute kidney failure (HCC) RENAL FUNCTION PANEL Routine 04/16/2025 11:17 AM EDT Other acute kidney failure (HCC) RENAL FUNCTION PANEL (EXTERNAL LAB ENTRY) Routine 03/18/2025 from Last 3 Months Results * (ABNORMAL) Vit D 25 hydroxy (04/16/2025 11:17 AM EDT) Vitamin D, 25-OH, Total 24.6(L) 30.0 - 100.0 ng/mL [facility] Comment: Vitamin D deficiency has been defined by the [place] of Medicine and an Endocrine Society practice guideline as a level of serum 25-OH vitamin D less than 20 ng/mL (1,2). The Endocrine Society went on to further define vitamin D insufficiency as a level between 21 and 29 ng/mL (2). 1. IOM ([place] of Medicine). 2010. Dietary reference intakes for calcium and D. [place]: The National Academies Press. 2. Phu MF, Concetta NC, Neeraj JULIEN, et al. Evaluation, treatment, and prevention of vitamin D deficiency: an Endocrine Society clinical practice guideline. JCEM. 2010; 96(7):3421-30. Blood Venous blood / Unknown 04/16/2025 11:17 AM EDT 04/16/2025 us Bereket Olivo MD LAB BLOOD ORDERABLES Final Resul t [facility] [address] [place] [address] * (ABNORMAL) PTH, intact (04/16/2025 11:17 AM EDT) PTH 72(H) 15 - 65 pg/mL [facility] Blood Venous blood / Unknown 04/16/2025 11:17 AM EDT 04/16/2025 us Bereket Olivo MD LAB BLOOD ORDERABLES Final Resul t Performing Organization Address City/[facility]/ZIP Co de Phone Number [facility] [address] [place] [phone] * (ABNORMAL) Renal funtion panel (04/16/2025 11:17 AM EDT) Glucose 285(H) 70 - 99 mg/dL [facility] BUN 27 8 - 27 mg/dL [facility] Creatinine 1.45(H) 0.57 - 1.00 mg/dL [facility] eGFR CKD-EPI CR 2020 38(L) >59 mL/min/1.7 3 [facility] BUN/Creatinine Ratio 19 12 - 28 [facility] Sodium 139 134 - 144 mmol/L [facility] Potassium 5.4(H) 3.5 - 5.2 mmol/L [facility] Chloride 100 96 - 106 mmol/L [facility] Bicarbonate (CO2) 14(L) 20 - 29 mmol/L [facility] Calcium 10.3 8.7 - 10.3 mg/dL [facility] Albumin 4.6 3.8 - 4.8 g/dL [facility] Phosphorus 4.0 3.0 - 4.3 mg/dL [facility] Blood Venous blood / Unknown 04/16/2025 11:17 AM EDT 04/16/2025 Bereket Olivo MD LAB BLOOD ORDERABLES Final Resul t [facility] [address] [place] [phone] * Renal Function Panel (External Lab) (03/18/2025) Glucose 154 mg/dL BUN 24 mg/dL eGFR 39 Sodium 140 mEq/L Potassium 4.9 mEq/L Chloride 102 Carbon Dioxide 22 mmol/L Calcium 9.9 mg/dL Creatinine 1.41 mg/dL Anion Gap 16 Blood 03/18/2025 Historical Provider LAB BLOOD ORDERABLES Kera l Result from Last 3 Months Insurance [facility] ([id number]) Care Teams Air Surveillance Operator Relationship Specialty Start Date End Date Monroe García MD 10 [facility] [address] [place] [phone] PCP - General Family Medicine 04/11/25
--- OUTSIDE RECORDS SUMMARY | 2025-05-03 20:00 | XMS_ITS | Clinical Summary ---
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 [id number] [place] [id number] ON DEMAND MEDICARE - [place] - [place] [id number] Problems Condition Name Condition Details Condition Category [...] 01-01 00:00: 00 ATHSCL HEART DISEASE OF [place] CORONARY ARTERY W/O ANG PCTRS Active 01-01 00:00: 00 UNSPECIFIED SYSTOLIC (CONGESTIVE) HEART FAILURE Active 01-01 00:00: 00 Allergies, Adverse Reactions, Alerts Allergy Name Allergy Type Status Severity Reaction(s) Onset Date Inactive Date Treating Clinician Comments HYDROCODONE Propensity to adverse reactions Active 01-08 12:13: 22 OXYCODONE HYDROCHLORID E Propensity to adverse reactions Active 01-05 10:21: 33 LISINOPRIL Propensity to adverse reactions Active 01-08 12:13: 22 CEPHALASPORI NS Propensity to adverse reactions Active 01-07 07:57: 16 NAPROXEN SODIUM Propensity to adverse reactions Active 01-05 10:22: 38 SULFA (SULFONAMIDE ANTIBIOTICS) Propensity to adverse reactions Active 01-05 10:22: 13 Medications Ordered Medication Name Filled Medication Name Start Date Stop Date Current Medication? Ordering Clinician Indication Dosage Frequency Signature (SIG) Comments Components Alcohol Pads 2020-08 00:00: 00 09-05 23:59 :00 No [id number] Per instruc tions TWO (2) TIMES A DAY TO 3 (THREE) TIMES A DAY Per instructio ns TWO (2) TIMES A DAY TO 3 (THREE) TIMES A DAY (route: topical) Med Classific ation: Antisepti cs and Disinfect ants Eliquis 5 mg tablet 03-11 00:00: 00 01-01 23:59 :00 No [id number] 1 tablet TWO (2) TIMES A DAY 1 tablet TWO (2) TIMES A DAY (route: oral) Med Classific ation: Hematolog ical Agents ferrous sulfate 324 mg (65 mg iron) tablet,jessica yed release 2020-08 00:00: 00 03-11 23:59 :00 No [id number] Per instruc tions DAILY Per instructio ns DAILY (route: oral) Med Classific ation: Electroly te Balance-N utritiona l Products gabapentin 400 mg capsule 2020-08 00:00: 00 03-11 23:59 :00 No [id number] Per instruc tions 3 (THREE) TIMES A DAY Per instructio ns 3 (THREE) TIMES A DAY (route: oral) Med Classific ation: Central Nervous System Agents metoprolol succinate ER 25 mg tablet,exte nded release 24 hr 2020-08 00:00: 00 03-11 23:59 :00 No [id number] Per instruc tions DAILY Per instructio ns DAILY (route: oral) Med Classific ation: Cardiovas cular Therapy Agents magnesium oxide 400 mg (241.3 mg magnesium) tablet 2020-08 00:00: 00 03-11 23:59 :00 No [id number] Per instruc tions DAILY Per instructio ns DAILY (route: oral) Med Classific ation: Electroly te Balance-N utritiona l Products atorvastati n 40 mg tablet 2020-08 00:00: 00 03-11 23:59 :00 No [id number] Per instruc tions DAILY Per instructio ns DAILY (route: oral) Med Classific ation: Cardiovas cular Therapy Agents isosorbide dinitrate 30 mg tablet 2020-08 00:00: 00 03-11 23:59 :00 No [id number] Per instruc tions TWO (2) TIMES A DAY Per instructio ns TWO (2) TIMES A DAY (route: oral) Med Classific ation: Cardiovas cular Therapy Agents clopidogrel 75 mg tablet 03-11 00:00: 00 01-01 23:59 :00 No [id number] 1 tablet DAILY 1 tablet DAILY (route: oral) Med Classific ation: Hematolog ical Agents torsemide 20 mg tablet 2020-08 00:00: 00 03-11 23:59 :00 No [id number] Per instruc tions DAILY Per instructio ns DAILY (route: oral) Med Classific ation: Cardiovas cular Therapy Agents pantoprazol e 20 mg tablet,jessica yed release 2020-08 00:00: 00 03-11 23:59 :00 No [id number] Per instruc tions DAILY Per instructio ns DAILY (route: oral) Med Classific ation: Gastroint estinal Therapy Agents Lantus Solostar U-100 Insulin 100 unit/mL (3 mL) subcutaneou s pen 2020-08 0 00:00: 00 03-11 23:59 :00 No [id number] Per instruc tions DAILY Per instructio ns DAILY (route: subcutaneo us) Med Classific ation: Endocrine acetaminoph en 325 mg tablet 03-11 00:00: 00 01-01 23:59 :00 No [id number] 2 tablet 3 TIMES DAILY 2 tablet 3 TIMES DAILY (route: oral) Med Classific ation: Analgesic , Anti-infl ammatory or Antipyret ic atorvastati n 80 mg tablet 03-11 00:00: 00 01-01 23:59 :00 No [id number] 1 tablet BEDTIME 1 tablet BEDTIME (route: oral) Med Classific ation: Cardiovas cular Therapy Agents duloxetine 20 mg capsule,del ayed release 03-11 00:00: 00 01-01 23:59 :00 No [id number] 2 capsule DAILY 2 capsule DAILY (route: oral) Med Classific ation: Central Nervous System Agents ferrous sulfate 325 mg (65 mg iron) tablet 03-11 00:00: 00 01-01 23:59 :00 No [id number] 1 tablet DAILY 1 tablet DAILY (route: oral) Med Classific ation: Electroly te Balance-N utritiona l Products furosemide 20 mg tablet 03-11 00:00: 00 04-19 23:59 :00 No [id number] 1 tablet DAILY 1 tablet DAILY (route: oral) Med Classific ation: Cardiovas cular Therapy Agents gabapentin 100 mg capsule 03-11 00:00: 00 01-01 23:59 :00 No [id number] 2 capsule 3 TIMES DAILY 2 capsule 3 TIMES DAILY (route: oral) Med Classific ation: Central Nervous System Agents Lantus Solostar U-100 Insulin 100 unit/mL (3 mL) subcutaneou s pen 03-11 00:00: 00 01-01 23:59 :00 No [id number] 20 unit BEDTIME 20 unit BEDTIME (route: subcutaneo ) Med Classific ation: Endocrine melatonin 5 mg capsule 03-11 00:00: 00 01-01 23:59 :00 No [id number] 1 capsule DAILY 1 capsule DAILY (route: oral) Med Classific ation: Central Nervous System Agents metoprolol succinate ER 50 mg tablet,exte nded release 24 hr 03-11 00:00: 00 01-01 23:59 :00 No [id number] 1 tablet DAILY 1 tablet DAILY (route: oral) Med Classific ation: Cardiovas cular Therapy Agents mirtazapine 15 mg disintegrat ing tablet 03-11 00:00: 00 01-01 23:59 :00 No [id number] 1 tablet BEDTIME 1 tablet BEDTIME (route: oral) Med Classific ation: Central Nervous System Agents multivitami n tablet 03-11 00:00: 00 01-01 23:59 :00 No [id number] 1 tablet DAILY 1 tablet DAILY (route: oral) Med Classific ation: Electroly te Balance-N utritiona l Products Nitrostat 0.4 mg sublingual tablet 03-11 00:00: 00 01-01 23:59 :00 No [id number] 1 tablet NEEDED 1 tablet NEEDED (route: sublingual ) Med Classific ation: Cardiovas cular Therapy Agents pantoprazol e 40 mg tablet,jessica yed release 03-11 00:00: 00 01-01 23:59 :00 No [id number] 1 tablet DAILY 1 tablet DAILY (route: oral) Med Classific ation: Gastroint estinal Therapy Agents quetiapine 200 mg tablet 03-11 00:00: 00 11-02 23:59 :00 No [id number] 1 tablet BEDTIME 1 tablet BEDTIME (route: oral) Med Classific ation: Central Nervous System Agents Senna Laxative 8.6 mg tablet 03-11 00:00: 00 01-01 23:59 :00 No [id number] 2 tablet DAILY 2 tablet DAILY (route: oral) Med Classific ation: Gastroint estinal Therapy Agents valsartan 40 mg tablet 03-11 00:00: 00 01-01 23:59 :00 No [id number] 1 tablet DAILY 1 tablet DAILY (route: oral) Med Classific ation: Cardiovas cular Therapy Agents Lasix 40 mg tablet 04-19 00:00: 00 05-09 23:59 :00 No [id number] 1 tablet DAILY 1 tablet DAILY (route: oral) Med Classific ation: Cardiovas cular Therapy Agents Lasix 20 mg tablet 05-10 00:00: 00 11-02 23:59 :00 No [id number] 1 tablet DAILY 1 tablet DAILY (route: oral) Med Classific ation: Cardiovas cular Therapy Agents Seroquel 100 mg tablet 05-10 00:00: 00 11-02 23:59 :00 No [id number] 1 tablet BEDTIME 1 tablet BEDTIME (route: oral) Med Classific ation: Central Nervous System Agents Jardiance 10 mg tablet 2022-08 00:00: 00 01-01 23:59 :00 No [id number] 1 tablet DAILY 1 tablet DAILY (route: oral) Med Classific ation: Endocrine Seroquel 100 mg tablet 11-05 00:00: 00 01-01 23:59 :00 No [id number] 3 tablet BEDTIME 3 tablet BEDTIME (route: oral) Med Classific ation: Central Nervous System Agents torsemide 20 mg tablet 11-05 00:00: 00 01-01 23:59 :00 No [id number] 1 tablet DAILY 1 tablet DAILY (route: oral) Med Classific ation: Cardiovas cular Therapy Agents isosorbide mononitrate ER 60 mg tablet,exte nded release 24 hr 2023-08 00:00: 00 01-01 23:59 :00 No [id number] 1 tablet DAILY 1 tablet DAILY (route: oral) Med Classific ation: Cardiovas cular Therapy Agents acetaminoph en 325 mg capsule 01-05 00:00: 00 Yes [id number] 3 capsule 3 TIMES DAILY 3 capsule 3 TIMES DAILY (route: oral) Med Classific ation: Analgesic , Anti-infl ammatory or Antipyret ic atorvastati n 80 mg tablet 01-05 00:00: 00 Yes [id number] 1 tablet EVERY AM 1 tablet EVERY AM (route: oral) Med Classific ation: Cardiovas cular Therapy Agents carbidopa 25 mg-levodopa 100 mg tablet 01-05 00:00: 00 Yes [id number] 1 tablet 2 TIMES DAILY 1 tablet 2 TIMES DAILY (route: oral) Med Classific ation: Central Nervous System Agents clopidogrel 75 mg tablet 01-05 00:00: 00 Yes [id number] 1 tablet EVERY AM 1 tablet EVERY AM (route: oral) Med Classific ation: Hematolog ical Agents duloxetine 20 mg capsule,del ayed release 01-05 00:00: 00 Yes [id number] 2 capsule EVERY AM 2 capsule EVERY AM (route: oral) Med Classific ation: Central Nervous System Agents Eliquis 5 mg tablet 01-05 00:00: 00 Yes [id number] 1 tablet 2 TIMES DAILY 1 tablet 2 TIMES DAILY (route: oral) Med Classific ation: Hematolog ical Agents ferrous sulfate 325 mg (65 mg iron) tablet 01-05 00:00: 00 Yes [id number] 1 tablet EVERY AM 1 tablet EVERY AM (route: oral) Med Classific ation: Electroly te Balance-N utritiona l Products gabapentin 100 mg capsule 01-05 00:00: 00 Yes [id number] 2 capsule 3 TIMES DAILY 2 capsule 3 TIMES DAILY (route: oral) Med Classific ation: Central Nervous System Agents Humalog KwikPen (U-100) Insulin 100 unit/mL subcutaneou s 01-05 00:00: 00 Yes [id number] Per instruc tions 3 TIMES DAILY Per instructio ns 3 TIMES DAILY (route: subcutaneo us) Med Classific ation: Endocrine Jardiance 10 mg tablet 01-05 00:00: 00 Yes [id number] 1 tablet EVERY AM 1 tablet EVERY AM (route: oral) Med Classific ation: Endocrine melatonin 5 mg capsule 01-05 00:00: 00 Yes [id number] 1 capsule BEDTIME 1 capsule BEDTIME (route: oral) Med Classific ation: Central Nervous System Agents metoprolol succinate ER 25 mg tablet,exte nded release 24 hr 01-05 00:00: 00 Yes [id number] 1 tablet EVERY AM 1 tablet EVERY AM (route: oral) Med Classific ation: Cardiovas cular Therapy Agents Miralax 17 gram oral powder packet 01-05 00:00: 00 Yes [id number] 1 packet EVERY AM 1 packet EVERY AM (route: oral) Med Classific ation: Gastroint estinal Therapy Agents mirtazapine 15 mg tablet 01-05 00:00: 00 Yes [id number] 1 tablet EVERY AM 1 tablet EVERY AM (route: oral) Med Classific ation: Central Nervous System Agents Multiple Vitamins tablet 01-05 00:00: 00 Yes [id number] 1 tablet EVERY AM 1 tablet EVERY AM (route: oral) Med Classific ation: Electroly te Balance-N utritiona l Products omeprazole 20 mg capsule,del ayed release 01-05 00:00: 00 Yes [id number] 2 capsule EVERY AM 2 capsule EVERY AM (route: oral) Med Classific ation: Gastroint estinal Therapy Agents quetiapine 100 mg tablet 01-05 00:00: 00 Yes [id number] 2 tablet BEDTIME 2 tablet BEDTIME (route: oral) Med Classific ation: Central Nervous System Agents Semglee (insulin glargine-yf gn) 100 unit/mL subcutaneou s solution 01-05 00:00: 00 Yes [id number] 65 unit BEDTIME 65 unit BEDTIME (route: [...] Observation Time Observation Value Commen ts Temperature 2025-04-15 09:24:00.000 97.9 [degF] Temperature 2025-04-12 09:13:00.000 97.9 [degF] Temperature 2025-04-10 08:42:00.000 97.9 [degF] Temperature 2025-04-08 08:46:00.000 97.8 [degF] Temperature 2025-04-05 08:43:00.000 97.9 [degF] Temperature 2025-04-03 12:30:00.000 97.4 [degF] Temperature 2025-04-03 12:09:00.000 97.7 [degF] Temperature 2025-04-03 08:24:00.000 97.5 [degF] Temperature 2025-04-01 08:59:00.000 97.9 [degF] Temperature 2025-03-29 07:56:00.000 97.8 [degF] Temperature 2025-03-28 12:11:00.000 97.1 [degF] Temperature 2025-03-27 09:03:00.000 97.9 [degF] Temperature 2025-03-26 12:48:00.000 97.7 [degF] Temperature 2025-03-25 09:57:00.000 97.9 [degF] Temperature 2025-03-22 13:36:00.000 97.4 [degF] Temperature 2025-03-22 08:37:00.000 97.8 [degF] Temperature 2025-03-20 09:39:00.000 98.2 [degF] Temperature 2025-03-19 11:41:00.000 98.3 [degF] Temperature 2025-03-18 08:15:00.000 97.6 [degF] Temperature 2025-03-15 14:21:00.000 97.4 [degF] Temperature 2025-03-15 08:54:00.000 97.6 [degF] Temperature 2025-03-14 12:44:00.000 97.3 [degF] Temperature 2025-03-13 09:30:00.000 97.9 [degF] Temperature 2025-03-11 08:16:00.000 97.9 [degF] Temperature 2025-03-08 08:39:00.000 97.8 [degF] Temperature 2025-03-06 08:00:00.000 97.9 [degF] Pulse 2025-04-15 09:24:00.000 73 /min Pulse 2025-04-12 09:13:00.000 76 /min Pulse 2025-04-10 08:42:00.000 76 /min Pulse 2025-04-08 08:46:00.000 78 /min Pulse 2025-04-05 08:43:00.000 76 /min Pulse 2025-04-03 12:30:00.000 70 /min Pulse 2025-04-03 12:09:00.000 83 /min Pulse 2025-04-03 08:24:00.000 75 /min Pulse 2025-04-01 08:59:00.000 77 /min Pulse 2025-03-29 07:56:00.000 78 /min Pulse 2025-03-28 12:11:00.000 79 /min Pulse 2025-03-27 09:03:00.000 76 /min Pulse 2025-03-26 12:48:00.000 70 /min Pulse 2025-03-25 09:57:00.000 79 /min Pulse 2025-03-22 13:36:00.000 78 /min Pulse 2025-03-22 08:37:00.000 75 /min Pulse 2025-03-20 09:39:00.000 81 /min Pulse 2025-03-19 11:41:00.000 73 /min Pulse 2025-03-18 08:15:00.000 76 /min Pulse 2025-03-15 14:21:00.000 84 /min Pulse 2025-03-15 08:54:00.000 77 /min Pulse 2025-03-14 12:44:00.000 60 /min Pulse 2025-03-13 09:30:00.000 74 /min Pulse 2025-03-11 08:16:00.000 76 /min Pulse 2025-03-08 08:39:00.000 76 /min Pulse 2025-03-06 08:00:00.000 74 /min O2 Saturation (%) 2025-04-15 09:25:00.000 97 % O2 Saturation (%) 2025-04-12 09:14:00.000 97 % O2 Saturation (%) 2025-04-10 08:42:00.000 97 % O2 Saturation (%) 2025-04-08 08:47:00.000 97 % O2 Saturation (%) 2025-04-05 08:43:00.000 98 % O2 Saturation (%) 2025-04-03 12:31:00.000 97 % O2 Saturation (%) 2025-04-03 08:25:00.000 97 % O2 Saturation (%) 2025-04-01 09:28:00.000 97 % O2 Saturation (%) 2025-03-29 07:57:00.000 97 % O2 Saturation (%) 2025-03-27 09:04:00.000 97 % O2 Saturation (%) 2025-03-25 09:58:00.000 97 % O2 Saturation (%) 2025-03-22 13:39:00.000 98 % O2 Saturation (%) 2025-03-22 08:37:00.000 97 % O2 Saturation (%) 2025-03-20 09:39:00.000 98 % O2 Saturation (%) 2025-03-18 08:15:00.000 97 % O2 Saturation (%) 2025-03-15 14:27:00.000 96 % O2 Saturation (%) 2025-03-15 08:55:00.000 97 % O2 Saturation (%) 2025-03-13 09:31:00.000 97 % O2 Saturation (%) 2025-03-11 08:16:00.000 97 % O2 Saturation (%) 2025-03-08 08:40:00.000 97 % O2 Saturation (%) 2025-03-06 08:01:00.000 98 % Respirations 2025-04-15 09:24:00.000 18 /min Respirations 2025-04-12 09:13:00.000 20 /min Respirations 2025-04-10 08:42:00.000 20 /min Respirations 2025-04-08 08:46:00.000 18 /min Respirations 2025-04-05 08:43:00.000 20 /min Respirations 2025-04-03 12:30:00.000 18 /min Respirations 2025-04-03 12:09:00.000 18 /min Respirations 2025-04-03 08:24:00.000 18 /min Respirations 2025-04-01 08:59:00.000 20 /min Respirations 2025-03-29 07:56:00.000 20 /min Respirations 2025-03-28 12:11:00.000 16 /min Respirations 2025-03-27 09:03:00.000 20 /min Respirations 2025-03-26 12:48:00.000 18 /min Respirations 2025-03-25 09:57:00.000 20 /min Respirations 2025-03-22 13:36:00.000 18 /min Respirations 2025-03-22 08:37:00.000 18 /min Respirations 2025-03-20 09:39:00.000 18 /min Respirations 2025-03-19 11:41:00.000 18 /min Respirations 2025-03-18 08:15:00.000 18 /min Respirations 2025-03-15 14:21:00.000 18 /min Respirations 2025-03-15 08:54:00.000 18 /min Respirations 2025-03-14 12:44:00.000 18 /min Respirations 2025-03-13 09:30:00.000 20 /min Respirations 2025-03-11 08:16:00.000 20 /min Respirations 2025-03-08 08:39:00.000 18 /min Respirations 2025-03-06 08:00:00.000 20 /min Weight (lbs) 2025-04-15 09:25:00.000 216 [lb_av] Weight (lbs) 2025-04-12 09:15:00.000 216 [lb_av] Weight (lbs) 2025-04-10 08:42:00.000 216 [lb_av] Weight (lbs) 2025-04-08 08:47:00.000 215 [lb_av] Weight (lbs) 2025-04-05 08:43:00.000 215 [lb_av] Weight (lbs) 2025-04-03 08:25:00.000 216 [lb_av] Weight (lbs) 2025-04-01 09:28:00.000 216 [lb_av] Weight (lbs) 2025-03-29 07:57:00.000 216 [lb_av] Weight (lbs) 2025-03-27 09:04:00.000 216 [lb_av] Weight (lbs) 2025-03-25 09:58:00.000 215 [lb_av] Weight (lbs) 2025-03-22 08:37:00.000 215 [lb_av] Weight (lbs) 2025-03-20 09:39:00.000 216 [lb_av] Weight (lbs) 2025-03-18 08:15:00.000 214 [lb_av] Weight (lbs) 2025-03-15 08:55:00.000 216 [lb_av] Weight (lbs) 2025-03-13 09:31:00.000 216 [lb_av] Weight (lbs) 2025-03-11 08:16:00.000 216 [lb_av] Weight (lbs) 2025-03-08 08:40:00.000 214 [lb_av] Weight (lbs) 2025-03-06 08:01:00.000 215 [lb_av] Systolic Blood Pressure 2025-04-15 09:24:00.000 122 mm [Hg] Systolic Blood Pressure 2025-04-12 09:13:00.000 127 mm [Hg] Systolic Blood Pressure 2025-04-10 08:42:00.000 128 mm [Hg] Systolic Blood Pressure 2025-04-08 08:46:00.000 122 mm [Hg] Systolic Blood Pressure 2025-04-05 08:43:00.000 108 mm [Hg] Systolic Blood Pressure 2025-04-03 12:30:00.000 120 mm [Hg] Systolic Blood Pressure 2025-04-03 12:09:00.000 110 mm [Hg] Systolic Blood Pressure 2025-04-03 08:24:00.000 123 mm [Hg] Systolic Blood Pressure 2025-04-01 09:27:00.000 118 mm [Hg] Systolic Blood Pressure 2025-03-29 07:57:00.000 125 mm [Hg] Systolic Blood Pressure 2025-03-28 12:11:00.000 130 mm [Hg] Systolic Blood Pressure 2025-03-27 09:03:00.000 129 mm [Hg] Systolic Blood Pressure 2025-03-26 12:48:00.000 104 mm [Hg] Systolic Blood Pressure 2025-03-25 09:57:00.000 108 mm [Hg] Systolic Blood Pressure 2025-03-22 13:36:00.000 124 mm [Hg] Systolic Blood Pressure 2025-03-22 08:37:00.000 126 mm [Hg] Systolic Blood Pressure 2025-03-20 09:39:00.000 122 mm [Hg] Systolic Blood Pressure 2025-03-19 11:41:00.000 110 mm [Hg] Systolic Blood Pressure 2025-03-18 08:15:00.000 128 mm [Hg] Systolic Blood Pressure 2025-03-15 14:21:00.000 122 mm [Hg] Systolic Blood Pressure 2025-03-15 08:54:00.000 118 mm [Hg] Systolic Blood Pressure 2025-03-14 12:44:00.000 106 mm [Hg] Systolic Blood Pressure 2025-03-13 09:30:00.000 106 mm [Hg] Systolic Blood Pressure 2025-03-11 08:16:00.000 124 mm [Hg] Systolic Blood Pressure 2025-03-08 08:39:00.000 115 mm [Hg] Systolic Blood Pressure 2025-03-06 08:00:00.000 129 mm [Hg] Diastolic Blood Pressure 2025-04-15 09:24:00.000 71 mm [Hg] Diastolic Blood Pressure 2025-04-12 09:13:00.000 72 mm [Hg] Diastolic Blood Pressure 2025-04-10 08:42:00.000 71 mm [Hg] Diastolic Blood Pressure 2025-04-08 08:46:00.000 75 mm [Hg] Diastolic Blood Pressure 2025-04-05 08:43:00.000 76 mm [Hg] Diastolic Blood Pressure 2025-04-03 12:30:00.000 76 mm [Hg] Diastolic Blood Pressure 2025-04-03 12:09:00.000 70 mm [Hg] Diastolic Blood Pressure 2025-04-03 08:24:00.000 68 mm [Hg] Diastolic Blood Pressure 2025-04-01 09:27:00.000 76 mm [Hg] Diastolic Blood Pressure 2025-03-29 07:57:00.000 67 mm [Hg] Diastolic Blood Pressure 2025-03-28 12:11:00.000 71 mm [Hg] Diastolic Blood Pressure 2025-03-27 09:03:00.000 81 mm [Hg] Diastolic Blood Pressure 2025-03-26 12:48:00.000 54 mm [Hg] Diastolic Blood Pressure 2025-03-25 09:57:00.000 78 mm [Hg] Diastolic Blood Pressure 2025-03-22 13:36:00.000 72 mm [Hg] Diastolic Blood Pressure 2025-03-22 08:37:00.000 71 mm [Hg] Diastolic Blood Pressure 2025-03-20 09:39:00.000 69 mm [Hg] Diastolic Blood Pressure 2025-03-19 11:41:00.000 70 mm [Hg] Diastolic Blood Pressure 2025-03-18 08:15:00.000 76 mm [Hg] Diastolic Blood Pressure 2025-03-15 14:21:00.000 64 mm [Hg] Diastolic Blood Pressure 2025-03-15 08:54:00.000 73 mm [Hg] Diastolic Blood Pressure 2025-03-14 12:44:00.000 60 mm [Hg] Diastolic Blood Pressure 2025-03-13 09:30:00.000 67 mm [Hg] Diastolic Blood Pressure 2025-03-11 08:16:00.000 82 mm [Hg] Diastolic Blood Pressure 2025-03-08 08:39:00.000 68 mm [Hg] Diastolic Blood Pressure 2025-03-06 08:00:00.000 77 mm [Hg] Plan of Treatment Planned Activity [...] AWARENESS FOR SAFETY AND WILL NOTIFY CLINICAL COTTON AGENT AND PHYSICIAN/PROVIDER WITH ANY CHANGE IN CONDITION. [code = SKILLED NURSE WILL MAINTAIN SITUATIONAL AWARENESS FOR SAFETY AND WILL NOTIFY CLINICAL COTTON AGENT AND PHYSICIAN/PROVIDER WITH ANY CHANGE IN CONDITION.] [...] Future Scheduled Test SKILLED NU RSE TO ADMINISTER MEDICATIONS AND PRE-POUR MEDICATIONS PER MEDICATION LIST. [code = SKILLED NURSE TO ADMINISTER MEDICATIONS AND PRE-POUR MEDICATIONS PER MEDICATION LIST.] Future Scheduled Test SKILLED NU RSE FOR [...] WEIGH PATIENT, SKILLED NURSE TO OBTAIN MEASUREMENT IN CM AT EACH VISIT AND REPORT [...] WEIGH PATIENT, SKILLED NURSE TO OBTAIN MEASUREMENT IN CM AT EACH VISIT AND REPORT AN INCREASE OF 1 CM TO PHYSICIAN.] Future Scheduled Test SKILLED NU RSE TO PERFORM AND RECORD BLOOD SUGAR READING AND PRN FOR SIGNS AND SYMPTOMS OF HYPO/HYPERGLYCEMIA. [code = SKILLED NURSE TO PERFORM AND RECORD BLOOD SUGAR READING AND PRN FOR SIGNS AND SYMPTOMS OF HYPO/HYPERGLYCEMIA.] Goal Patient Goal - P ATIENT VERBALIZED GOAL OF IMPROVING MEDICATION MANAGEMENT AND GET STRONGER Goal 2025-03-01 Patient Goal - P ATIENT VERBALIZED GOAL OF IMPROVING MEDICATION MANAGEMENT AND GET STRONGER Goal Provider Goal - A PLAN OF CARE WILL BE ESTABLISHED THAT MEETS PATIENT'S LONG TERM NEEDS AND INCLUDES PATIENT GOAL FOR HOME [...] WILL COMPLY WITH MEDICATION WHEN SKILLED NURSE ADMINISTERS AND PRE-POURS MEDICATION THROUGHOUT CERTIFICATION PERIOD. Goal Provider [...] WILL BE OBTAINED ORDERED THROUGHOUT CERTIFICATION PERIOD. Encounters Start Date/Time End Date/Time Encounter Type Admission Type Attending [facility] [place] Facility Care Department Encounter ID Discharge Date Discharge Status Discharge Condition Discharge Reason Percent Goals Met 2025-03-06 00:00:00 2025-05-04 00:00:00 Outpatient RECERTIFIC [place] [facility] [id number] 13.89
--- OUTSIDE RECORDS SUMMARY | 2025-05-03 20:00 | XMS_ITS | Clinical Summary ---
Author Organization Unknown Care Team Providers Care Resident Doctor Name Role Phone LATOYA MARTINEZ, SYLVAIN Unavailable Unavailable REY GRANT, [place] Unavailable Unavailable JOSUE RN, INGE Unavailable Unavailable Payers Payer Name Policy Type Policy Number Effective Date Expira tion Date [facility] [place] [id number] [place] [id number] ON DEMAND MEDICARE - [place] - [place] [id number] Problems Condition Name Condition Details Condition Category [...] 01-01 00:00: 00 ATHSCL HEART DISEASE OF [place] CORONARY ARTERY W/O ANG PCTRS Active 01-01 [...] 2020-08 00:00: 00 09-05 23:59 :00 No [id number] Per instruc tions TWO (2) TIMES A DAY TO 3 (THREE) TIMES A DAY Per instructio ns TWO (2) TIMES A DAY TO 3 (THREE) TIMES A DAY (route: topical) Med Classific ation: Antisepti cs and Disinfect ants Eliquis 5 mg tablet 03-11 00:00: 00 01-01 23:59 :00 No [id number] 1 tablet TWO (2) TIMES A DAY 1 tablet TWO (2) TIMES A DAY (route: oral) Med Classific ation: Hematolog ical Agents ferrous sulfate 324 mg (65 mg iron) tablet,jessica yed release 2020-08 00:00: 00 03-11 23:59 :00 No [id number] Per instruc tions DAILY Per instructio ns DAILY (route: oral) Med Classific ation: Electroly te Balance-N utritiona l Products gabapentin 400 mg capsule 2020-08 00:00: 00 03-11 23:59 :00 No [id number] Per instruc tions 3 (THREE) TIMES A DAY Per instructio ns 3 (THREE) TIMES A DAY (route: oral) Med Classific ation: Central Nervous System Agents metoprolol succinate ER 25 mg tablet,exte nded release 24 hr 2020-08 00:00: 00 03-11 23:59 :00 No [id number] Per instruc tions DAILY Per instructio ns DAILY (route: oral) Med Classific ation: Cardiovas cular Therapy Agents magnesium oxide 400 mg (241.3 mg magnesium) tablet 2020-08 00:00: 00 03-11 23:59 :00 No [id number] Per instruc tions DAILY Per instructio ns DAILY (route: oral) Med Classific ation: Electroly te Balance-N utritiona l Products atorvastati n 40 mg tablet 2020-08 00:00: 00 03-11 23:59 :00 No [id number] Per instruc tions DAILY Per instructio ns DAILY (route: oral) Med Classific ation: Cardiovas cular Therapy Agents isosorbide dinitrate 30 mg tablet 2020-08 00:00: 00 03-11 23:59 :00 No [id number] Per instruc tions TWO (2) TIMES A DAY Per instructio ns TWO (2) TIMES A DAY (route: oral) Med Classific ation: Cardiovas cular Therapy Agents clopidogrel 75 mg tablet 03-11 00:00: 00 01-01 23:59 :00 No [id number] 1 tablet DAILY 1 tablet DAILY (route: oral) Med Classific ation: Hematolog ical Agents torsemide 20 mg tablet 2020-08 00:00: 00 03-11 23:59 :00 No [id number] Per instruc tions DAILY Per instructio ns DAILY (route: oral) Med Classific ation: Cardiovas cular Therapy Agents pantoprazol e 20 mg tablet,jessica yed release 2020-08 00:00: 00 03-11 23:59 :00 No [id number] Per instruc tions DAILY Per instructio ns DAILY (route: oral) Med Classific ation: Gastroint estinal Therapy Agents Lantus Solostar U-100 Insulin 100 unit/mL (3 mL) subcutaneou s pen 2020-08 0 00:00: 00 03-11 23:59 :00 No [id number] Per instruc tions DAILY Per instructio ns DAILY (route: subcutaneo us) Med Classific ation: Endocrine acetaminoph en 325 mg tablet 03-11 00:00: 00 01-01 23:59 :00 No [id number] 2 tablet 3 TIMES DAILY 2 tablet 3 TIMES DAILY (route: oral) Med Classific ation: Analgesic , Anti-infl ammatory or Antipyret ic atorvastati n 80 mg tablet 03-11 00:00: 00 01-01 23:59 :00 No [id number] 1 tablet BEDTIME 1 tablet BEDTIME (route: oral) Med Classific ation: Cardiovas cular Therapy Agents duloxetine 20 mg capsule,del ayed release 03-11 00:00: 00 01-01 23:59 :00 No [id number] 2 capsule DAILY 2 capsule DAILY (route: oral) Med Classific ation: Central Nervous System Agents ferrous sulfate 325 mg (65 mg iron) tablet 03-11 00:00: 00 01-01 23:59 :00 No [id number] 1 tablet DAILY 1 tablet DAILY (route: oral) Med Classific ation: Electroly te Balance-N utritiona l Products furosemide 20 mg tablet 03-11 00:00: 00 04-19 23:59 :00 No [id number] 1 tablet DAILY 1 tablet DAILY (route: oral) Med Classific ation: Cardiovas cular Therapy Agents gabapentin 100 mg capsule 03-11 00:00: 00 01-01 23:59 :00 No [id number] 2 capsule 3 TIMES DAILY 2 capsule 3 TIMES DAILY (route: oral) Med Classific ation: Central Nervous System Agents Lantus Solostar U-100 Insulin 100 unit/mL (3 mL) subcutaneou s pen 03-11 00:00: 00 01-01 23:59 :00 No [id number] 20 unit BEDTIME 20 unit BEDTIME (route: subcutaneo ) Med Classific ation: Endocrine melatonin 5 mg capsule 03-11 00:00: 00 01-01 23:59 :00 No [id number] 1 capsule DAILY 1 capsule DAILY (route: oral) Med Classific ation: Central Nervous System Agents metoprolol succinate ER 50 mg tablet,exte nded release 24 hr 03-11 00:00: 00 01-01 23:59 :00 No [id number] 1 tablet DAILY 1 tablet DAILY (route: oral) Med Classific ation: Cardiovas cular Therapy Agents mirtazapine 15 mg disintegrat ing tablet 03-11 00:00: 00 01-01 23:59 :00 No [id number] 1 tablet BEDTIME 1 tablet BEDTIME (route: oral) Med Classific ation: Central Nervous System Agents multivitami n tablet 03-11 00:00: 00 01-01 23:59 :00 No [id number] 1 tablet DAILY 1 tablet DAILY (route: oral) Med Classific ation: Electroly te Balance-N utritiona l Products Nitrostat 0.4 mg sublingual tablet 03-11 00:00: 00 01-01 23:59 :00 No [id number] 1 tablet NEEDED 1 tablet NEEDED (route: sublingual ) Med Classific ation: Cardiovas cular Therapy Agents pantoprazol e 40 mg tablet,jessica yed release 03-11 00:00: 00 01-01 23:59 :00 No [id number] 1 tablet DAILY 1 tablet DAILY (route: oral) Med Classific ation: Gastroint estinal Therapy Agents quetiapine 200 mg tablet 03-11 00:00: 00 11-02 23:59 :00 No [id number] 1 tablet BEDTIME 1 tablet BEDTIME (route: oral) Med Classific ation: Central Nervous System Agents Senna Laxative 8.6 mg tablet 03-11 00:00: 00 01-01 23:59 :00 No [id number] 2 tablet DAILY 2 tablet DAILY (route: oral) Med Classific ation: Gastroint estinal Therapy Agents valsartan 40 mg tablet 03-11 00:00: 00 01-01 23:59 :00 No [id number] 1 tablet DAILY 1 tablet DAILY (route: oral) Med Classific ation: Cardiovas cular Therapy Agents Lasix 40 mg tablet 04-19 00:00: 00 05-09 23:59 :00 No [id number] 1 tablet DAILY 1 tablet DAILY (route: oral) Med Classific ation: Cardiovas cular Therapy Agents Lasix 20 mg tablet 05-10 00:00: 00 11-02 23:59 :00 No [id number] 1 tablet DAILY 1 tablet DAILY (route: oral) Med Classific ation: Cardiovas cular Therapy Agents Seroquel 100 mg tablet 05-10 00:00: 00 11-02 23:59 :00 No [id number] 1 tablet BEDTIME 1 tablet BEDTIME (route: oral) Med Classific ation: Central Nervous System Agents Jardiance 10 mg tablet 2022-08 00:00: 00 01-01 23:59 :00 No [id number] 1 tablet DAILY 1 tablet DAILY (route: oral) Med Classific ation: Endocrine Seroquel 100 mg tablet 11-05 00:00: 00 01-01 23:59 :00 No [id number] 3 tablet BEDTIME 3 tablet BEDTIME (route: oral) Med Classific ation: Central Nervous System Agents torsemide 20 mg tablet 11-05 00:00: 00 01-01 23:59 :00 No [id number] 1 tablet DAILY 1 tablet DAILY (route: oral) Med Classific ation: Cardiovas cular Therapy Agents isosorbide mononitrate ER 60 mg tablet,exte nded release 24 hr 2023-08 00:00: 00 01-01 23:59 :00 No [id number] 1 tablet DAILY 1 tablet DAILY (route: oral) Med Classific ation: Cardiovas cular Therapy Agents acetaminoph en 325 mg capsule 01-05 00:00: 00 Yes [id number] 3 capsule 3 TIMES DAILY 3 capsule 3 TIMES DAILY (route: oral) Med Classific ation: Analgesic , Anti-infl ammatory or Antipyret ic atorvastati n 80 mg tablet 01-05 00:00: 00 Yes [id number] 1 tablet EVERY AM 1 tablet EVERY AM (route: oral) Med Classific ation: Cardiovas cular Therapy Agents carbidopa 25 mg-levodopa 100 mg tablet 01-05 00:00: 00 Yes [id number] 1 tablet 2 TIMES DAILY 1 tablet 2 TIMES DAILY (route: oral) Med Classific ation: Central Nervous System Agents clopidogrel 75 mg tablet 01-05 00:00: 00 Yes [id number] 1 tablet EVERY AM 1 tablet EVERY AM (route: oral) Med Classific ation: Hematolog ical Agents duloxetine 20 mg capsule,del ayed release 01-05 00:00: 00 Yes [id number] 2 capsule EVERY AM 2 capsule EVERY AM (route: oral) Med Classific ation: Central Nervous System Agents Eliquis 5 mg tablet 01-05 00:00: 00 Yes [id number] 1 tablet 2 TIMES DAILY 1 tablet 2 TIMES DAILY (route: oral) Med Classific ation: Hematolog ical Agents ferrous sulfate 325 mg (65 mg iron) tablet 01-05 00:00: 00 Yes [id number] 1 tablet EVERY AM 1 tablet EVERY AM (route: oral) Med Classific ation: Electroly te Balance-N utritiona l Products gabapentin 100 mg capsule 01-05 00:00: 00 Yes [id number] 2 capsule 3 TIMES DAILY 2 capsule 3 TIMES DAILY (route: oral) Med Classific ation: Central Nervous System Agents Humalog KwikPen (U-100) Insulin 100 unit/mL subcutaneou s 01-05 00:00: 00 Yes [id number] Per instruc tions 3 TIMES DAILY Per instructio ns 3 TIMES DAILY (route: subcutaneo us) Med Classific ation: Endocrine Jardiance 10 mg tablet 01-05 00:00: 00 Yes [id number] 1 tablet EVERY AM 1 tablet EVERY AM (route: oral) Med Classific ation: Endocrine melatonin 5 mg capsule 01-05 00:00: 00 Yes [id number] 1 capsule BEDTIME 1 capsule BEDTIME (route: oral) Med Classific ation: Central Nervous System Agents metoprolol succinate ER 25 mg tablet,exte nded release 24 hr 01-05 00:00: 00 Yes [id number] 1 tablet EVERY AM 1 tablet EVERY AM (route: oral) Med Classific ation: Cardiovas cular Therapy Agents Miralax 17 gram oral powder packet 01-05 00:00: 00 Yes [id number] 1 packet EVERY AM 1 packet EVERY AM (route: oral) Med Classific ation: Gastroint estinal Therapy Agents mirtazapine 15 mg tablet 01-05 00:00: 00 Yes [id number] 1 tablet EVERY AM 1 tablet EVERY AM (route: oral) Med Classific ation: Central Nervous System Agents Multiple Vitamins tablet 01-05 00:00: 00 Yes [id number] 1 tablet EVERY AM 1 tablet EVERY AM (route: oral) Med Classific ation: Electroly te Balance-N utritiona l Products omeprazole 20 mg capsule,del ayed release 01-05 00:00: 00 Yes [id number] 2 capsule EVERY AM 2 capsule EVERY AM (route: oral) Med Classific ation: Gastroint estinal Therapy Agents quetiapine 100 mg tablet 01-05 00:00: 00 Yes [id number] 2 tablet BEDTIME 2 tablet BEDTIME (route: oral) Med Classific ation: Central Nervous System Agents Semglee (insulin glargine-yf gn) 100 unit/mL subcutaneou s solution 01-05 00:00: 00 Yes [id number] 65 unit BEDTIME 65 unit BEDTIME (route: [...] AWARENESS FOR SAFETY AND WILL NOTIFY CLINICAL HUNTER GUIDE AND PHYSICIAN/PROVIDER WITH ANY CHANGE IN CONDITION. [code = SKILLED NURSE WILL MAINTAIN SITUATIONAL AWARENESS FOR SAFETY AND WILL NOTIFY CLINICAL HUNTER GUIDE AND PHYSICIAN/PROVIDER WITH ANY CHANGE IN CONDITION.] [...] CARE WILL BE ESTABLISHED THAT MEETS PATIENT'S USP NEEDS AND INCLUDES PATIENT GOAL FOR HOME [...] End Date/Time Encounter Type Admission Type Attending [facility] Facility Care Department Encounter ID Discharge Date Discharge Status Discharge Condition Discharge Reason Percent Goals Met 2025-03-06 00:00:00 2025-05-04 00:00:00 Outpatient RECERTIFIC [place] [facility] [id number] 13.89
== END 2025-04-17 13:03 | disposition home or self-care (01) ==
LOC: HO.HMCFM 12:09
PROVIDERS: PCP Family Medicine; Visit Provider Nurse Practitioner Family
DX: R30.0 Dysuria (principal); N89.8 Other specified noninflammatory disorders of vagina; Z87.440 Personal history of urinary (tract) infections; E11.8 Type 2 diabetes mellitus with unspecified complications; M54.50 Low back pain, unspecified; R30.9 Painful micturition, unspecified

== ENCOUNTER 2025-04-19 11:10 | Outpatient (REF) | payer OTHER, SELFPAY ==
--- OUTSIDE RECORDS SUMMARY | 2025-04-19 11:51 | XMS_ITS | Encounter Summary ---
Author Organization [facility], Address [address] [place] [address] Phone Care Team Providers Care Shoe Laster Name Role Phone Monroe García MD Primary Care Provider [phone] Reason for Visit * Reason Comments Med Refill Encounter Details Date Type Department Care Team (Late st Contact Info) Description 09/22/2021 Refill [facility] [address] [place] [phone] Kenna Plummer MD Social History Tobacco Use [...] Visit [facility] [address] [place] [phone] Bereket Olivo MD [address] [phone] documented as of this encounter Visit Diagnoses Not on filedocumented in this encounter Care Teams Shoe Laster Relationship Specialty Start Date End Date Monroe García MD 10 [facility] [address] [place] [phone] PCP - General Family Medicine 04/11/25 documented as of this encounter
--- OUTSIDE RECORDS SUMMARY | 2025-04-19 11:51 | XMS_ITS | Clinical Summary ---
Author Organization [facility] Address [address] [place] [phone] Phone Care Team Providers Care Stock Taker Name Role Phone Monroe García MD Primary [...] day by oral route. 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 [address] [phone] Bereket Olivo MD Other acute kidney failure [...] Office Visit [facility] [address] [phone] Bereket Olivo MD [address] [phone] Health Maintenance Due Date Last Done Comments [...] 03/18/2025 from Last 3 Months Results * urine albumin / creatinine ratio (04/16/2025 11:17 AM EDT) Creatinine, Ur 60.8 Not Estab. mg/dL [facility] Albumin, Urine 6.3 Not Estab. ug/mL [facility] Albumin/Creatin ine Ratio 10 0 - 29 mg/g creat [facility] Comment: Normal: 0 - 29 Moderately increased: 30 - 300 Severely increased: >300 Urine Urine specimen obtained by clean catch procedure / Unknown 04/16/2025 11:17 AM EDT 04/16/2025 us Bereket Olivo MD LAB URINE ORDERABLES Final Resul t [facility] [address] [place] [address] * (ABNORMAL) Vit D 25 hydroxy (04/16/2025 11:17 AM EDT) Vitamin D, 25-OH, Total 24.6(L) 30.0 - 100.0 ng/mL [facility] [place] Comment: Vitamin D deficiency has been defined by the [place] of Medicine and an Endocrine Society practice guideline as a level of serum 25-OH vitamin D less than 20 ng/mL (1,2). The Endocrine Society went on to further define vitamin D insufficiency as a level between 21 and 29 ng/mL (2). 1. IOM ([place] of Medicine). 2010. Dietary reference intakes for calcium and D. [place]: The National Academies Press. 2. Phu MF, Concetta FRAZIER, Neeraj JULIEN, et al. Evaluation, treatment, and prevention of vitamin D deficiency: an Endocrine Society clinical practice guideline. JCEM. 2010; 96(7):1911-30. Blood Venous blood / Unknown 04/16/2025 11:17 AM EDT 04/16/2025 Bereket Olivo MD LAB BLOOD ORDERABLES Final Resul t Performing Organization Address City/[facility]/ZIP Co de Phone Number [facility] [address] [place] [phone] * (ABNORMAL) PTH, intact (04/16/2025 11:17 AM EDT) PTH 72(H) 15 - 65 pg/mL [facility] Blood Venous blood / Unknown 04/16/2025 11:17 AM EDT 04/16/2025 Bereket Olivo MD LAB BLOOD ORDERABLES Final Resul t [facility] [place] [address] [place] [address] * (ABNORMAL) Renal funtion panel (04/16/2025 11:17 AM EDT) Glucose 285(H) 70 - 99 mg/dL [facility] BUN 27 8 - 27 mg/dL [facility] Creatinine 1.45(H) 0.57 - 1.00 mg/dL [facility] eGFR CKD-EPI CR 2020 38(L) >59 mL/min/1.7 3 [facility] BUN/Creatinine Ratio 19 12 - 28 [facility] Sodium 139 134 - 144 mmol/L [facility] Potassium 5.4(H) 3.5 - 5.2 mmol/L [facility] Chloride 100 96 - 106 mmol/L [facility] Bicarbonate (CO2) 14(L) 20 - 29 mmol/L [facility] Calcium 10.3 8.7 - 10.3 mg/dL [facility] Albumin 4.6 3.8 - 4.8 g/dL [facility] Phosphorus 4.0 3.0 - 4.3 mg/dL [facility] Blood Venous blood / Unknown 04/16/2025 11:17 AM EDT 04/16/2025 us Bereket Olivo MD LAB BLOOD ORDERABLES Final Resul t [facility] [address] [place] [address] * Renal Function Panel (External Lab) (03/18/2025) Glucose 154 mg/dL BUN 24 mg/dL eGFR 39 Sodium 140 mEq/L Potassium 4.9 mEq/L Chloride 102 Carbon Dioxide 22 mmol/L Calcium 9.9 mg/dL Creatinine 1.41 mg/dL Anion Gap 16 Blood 03/18/2025 us Historical Provider LAB BLOOD ORDERABLES Kera l Result from Last 3 Months Insurance [facility] ([id number]) [place] [phone] Care Teams Stock Taker Relationship Specialty Start Date End Date Monroe García MD [address] [phone] PCP - General Family Medicine 04/11/25
[2025-04-19 14:30] LABS: MANUAL DIFF FLAG NO
[2025-04-19 14:47] LABS: Appearance Urine Cloudy; Glucose Urine UA 500 mg/dL (Negative); PH 6.0 (5.0-9.0); Specific Gravity - Urine 1.015 (1.005-1.025); UMIC TRIGGER UACC YES
[2025-04-19 14:50] LABS: Hematocrit 43.8 % (37.0-47.0); Hemoglobin 13.3 g/dl (12.0-16.0); Imm Gran Abs Auto 0.07 X10*3/uL (0.00-0.03); Imm Gran Pct Auto 0.8 % (0.0-0.4); Lymphocytes Absolute Auto 2.0 X10*3/uL (1.2-4.9); Mean Corpuscular HGB Conc 30.4 g/dl (31.0-35.0); Mean Corpuscular Hemoglobin 28.3 pg (27.0-33.0); Mean Corpuscular Volume 93.2 fL (80.0-98.0); NRBC Abs Auto 0.000 X10*3/uL (0.0-0.012); NRBC Pct Auto 0.0 /100WBC (0.0-0.2); Platelet Count 289 X10*3/uL (160-400); Red Blood Count 4.70 X10*6/uL (4.20-5.50); White Blood Count 8.9 X10*3/uL (4.8-10.8)
[2025-04-19 15:13] LABS: Albumin Level 4.7 g/dL (3.5-5.0); Alkaline Phosphatase 107 U/L (39-117); Anion Gap 16 (12-20); Aspartate Amino Transferase 40 U/L (5-31); Blood Urea Nitrogen 35 mg/dL (9-16); Calcium 10.0 mg/dL (8.4-10.2); Carbon Dioxide 26 mmol/L (22-29); Chloride 103 mmol/L (96-108); Cholesterol 175 mg/dL (<200); Estimated Glomerular Filt Rate 33; HDL Cholesterol 43 mg/dL (>40); Potassium 4.4 mmol/L (3.3-5.1); Sodium 141 mmol/L (135-145); Total Protein 7.4 g/dL (6.5-8.0); Triglycerides 184 mg/dL (<150)
[2025-04-19 15:21] LABS: Alanine Aminotransferase 34 U/L (0-31)
[2025-04-19 15:24] LABS: Hemoglobin A1C 265.7898 umol/L; Total Hemoglobin (HGBA1C) 4929.5455 umol/L
[2025-04-19 15:29] LABS: UACC Culture Trigger YES
[2025-04-19 15:32] LABS: Microalbum/Creatinine Ratio Ur 19.8 ug/mg cr (<30)
--- OUTSIDE RECORDS SUMMARY | 2025-05-03 20:00 | XMS_ITS | Clinical Summary ---
Author Organization Unknown Care Team Providers Care Financial Planning Adviser Name Role Phone LATOYA MARTINEZ, SYLVAIN Unavailable Unavailable REY GRANT, WELL[place] Unavailable Unavailable JOSUE RN, INGE Unavailable Unavailable Payers Payer Name Policy Type Policy Number Effective Date Expira tion Date [facility] [id number] [place] [id number] ON DEMAND MEDIC[place] - [place] [id number] Problems Condition Name Condition Details Condition Category [...] 01-01 00:00: 00 ATHSCL HEART DISEASE OF [place] CORONARY ARTERY W/O ANG PCTRS Active 01-01 [...] 2020-08 00:00: 00 09-05 23:59 :00 No [id number] Per instruc tions TWO (2) TIMES A DAY TO 3 (THREE) TIMES A DAY Per instructio ns TWO (2) TIMES A DAY TO 3 (THREE) TIMES A DAY (route: topical) Med Classific ation: Antisepti cs and Disinfect ants Eliquis 5 mg tablet 03-11 00:00: 00 01-01 23:59 :00 No [id number] 1 tablet TWO (2) TIMES A DAY 1 tablet TWO (2) TIMES A DAY (route: oral) Med Classific ation: Hematolog ical Agents ferrous sulfate 324 mg (65 mg iron) tablet,jessica yed release 2020-08 00:00: 00 03-11 23:59 :00 No [id number] Per instruc tions DAILY Per instructio ns DAILY (route: oral) Med Classific ation: Electroly te Balance-N utritiona l Products gabapentin 400 mg capsule 2020-08 00:00: 00 03-11 23:59 :00 No [id number] Per instruc tions 3 (THREE) TIMES A DAY Per instructio ns 3 (THREE) TIMES A DAY (route: oral) Med Classific ation: Central Nervous System Agents metoprolol succinate ER 25 mg tablet,exte nded release 24 hr 2020-08 00:00: 00 03-11 23:59 :00 No [id number] Per instruc tions DAILY Per instructio ns DAILY (route: oral) Med Classific ation: Cardiovas cular Therapy Agents magnesium oxide 400 mg (241.3 mg magnesium) tablet 2020-08 00:00: 00 03-11 23:59 :00 No [id number] Per instruc tions DAILY Per instructio ns DAILY (route: oral) Med Classific ation: Electroly te Balance-N utritiona l Products atorvastati n 40 mg tablet 2020-08 00:00: 00 03-11 23:59 :00 No [id number] Per instruc tions DAILY Per instructio ns DAILY (route: oral) Med Classific ation: Cardiovas cular Therapy Agents isosorbide dinitrate 30 mg tablet 2020-08 00:00: 00 03-11 23:59 :00 No [id number] Per instruc tions TWO (2) TIMES A DAY Per instructio ns TWO (2) TIMES A DAY (route: oral) Med Classific ation: Cardiovas cular Therapy Agents clopidogrel 75 mg tablet 03-11 00:00: 00 01-01 23:59 :00 No [id number] 1 tablet DAILY 1 tablet DAILY (route: oral) Med Classific ation: Hematolog ical Agents torsemide 20 mg tablet 2020-08 00:00: 00 03-11 23:59 :00 No [id number] Per instruc tions DAILY Per instructio ns DAILY (route: oral) Med Classific ation: Cardiovas cular Therapy Agents pantoprazol e 20 mg tablet,jessica yed release 2020-08 00:00: 00 03-11 23:59 :00 No [id number] Per instruc tions DAILY Per instructio ns DAILY (route: oral) Med Classific ation: Gastroint estinal Therapy Agents Lantus Solostar U-100 Insulin 100 unit/mL (3 mL) subcutaneou s pen 2020-08 0 00:00: 00 03-11 23:59 :00 No [id number] Per instruc tions DAILY Per instructio ns DAILY (route: subcutaneo us) Med Classific ation: Endocrine acetaminoph en 325 mg tablet 03-11 00:00: 00 01-01 23:59 :00 No [id number] 2 tablet 3 TIMES DAILY 2 tablet 3 TIMES DAILY (route: oral) Med Classific ation: Analgesic , Anti-infl ammatory or Antipyret ic atorvastati n 80 mg tablet 03-11 00:00: 00 01-01 23:59 :00 No [id number] 1 tablet BEDTIME 1 tablet BEDTIME (route: oral) Med Classific ation: Cardiovas cular Therapy Agents duloxetine 20 mg capsule,del ayed release 03-11 00:00: 00 01-01 23:59 :00 No [id number] 2 capsule DAILY 2 capsule DAILY (route: oral) Med Classific ation: Central Nervous System Agents ferrous sulfate 325 mg (65 mg iron) tablet 03-11 00:00: 00 01-01 23:59 :00 No [id number] 1 tablet DAILY 1 tablet DAILY (route: oral) Med Classific ation: Electroly te Balance-N utritiona l Products furosemide 20 mg tablet 03-11 00:00: 00 04-19 23:59 :00 No [id number] 1 tablet DAILY 1 tablet DAILY (route: oral) Med Classific ation: Cardiovas cular Therapy Agents gabapentin 100 mg capsule 03-11 00:00: 00 01-01 23:59 :00 No [id number] 2 capsule 3 TIMES DAILY 2 capsule 3 TIMES DAILY (route: oral) Med Classific ation: Central Nervous System Agents Lantus Solostar U-100 Insulin 100 unit/mL (3 mL) subcutaneou s pen 03-11 00:00: 00 01-01 23:59 :00 No [id number] 20 unit BEDTIME 20 unit BEDTIME (route: subcutaneo ) Med Classific ation: Endocrine melatonin 5 mg capsule 03-11 00:00: 00 01-01 23:59 :00 No [id number] 1 capsule DAILY 1 capsule DAILY (route: oral) Med Classific ation: Central Nervous System Agents metoprolol succinate ER 50 mg tablet,exte nded release 24 hr 03-11 00:00: 00 01-01 23:59 :00 No [id number] 1 tablet DAILY 1 tablet DAILY (route: oral) Med Classific ation: Cardiovas cular Therapy Agents mirtazapine 15 mg disintegrat ing tablet 03-11 00:00: 00 01-01 23:59 :00 No [id number] 1 tablet BEDTIME 1 tablet BEDTIME (route: oral) Med Classific ation: Central Nervous System Agents multivitami n tablet 03-11 00:00: 00 01-01 23:59 :00 No [id number] 1 tablet DAILY 1 tablet DAILY (route: oral) Med Classific ation: Electroly te Balance-N utritiona l Products Nitrostat 0.4 mg sublingual tablet 03-11 00:00: 00 01-01 23:59 :00 No [id number] 1 tablet NEEDED 1 tablet NEEDED (route: sublingual ) Med Classific ation: Cardiovas cular Therapy Agents pantoprazol e 40 mg tablet,jessica yed release 03-11 00:00: 00 01-01 23:59 :00 No [id number] 1 tablet DAILY 1 tablet DAILY (route: oral) Med Classific ation: Gastroint estinal Therapy Agents quetiapine 200 mg tablet 03-11 00:00: 00 11-02 23:59 :00 No [id number] 1 tablet BEDTIME 1 tablet BEDTIME (route: oral) Med Classific ation: Central Nervous System Agents Senna Laxative 8.6 mg tablet 03-11 00:00: 00 01-01 23:59 :00 No [id number] 2 tablet DAILY 2 tablet DAILY (route: oral) Med Classific ation: Gastroint estinal Therapy Agents valsartan 40 mg tablet 03-11 00:00: 00 01-01 23:59 :00 No [id number] 1 tablet DAILY 1 tablet DAILY (route: oral) Med Classific ation: Cardiovas cular Therapy Agents Lasix 40 mg tablet 04-19 00:00: 00 05-09 23:59 :00 No [id number] 1 tablet DAILY 1 tablet DAILY (route: oral) Med Classific ation: Cardiovas cular Therapy Agents Lasix 20 mg tablet 05-10 00:00: 00 11-02 23:59 :00 No [id number] 1 tablet DAILY 1 tablet DAILY (route: oral) Med Classific ation: Cardiovas cular Therapy Agents Seroquel 100 mg tablet 05-10 00:00: 00 11-02 23:59 :00 No [id number] 1 tablet BEDTIME 1 tablet BEDTIME (route: oral) Med Classific ation: Central Nervous System Agents Jardiance 10 mg tablet 2022-08 00:00: 00 01-01 23:59 :00 No [id number] 1 tablet DAILY 1 tablet DAILY (route: oral) Med Classific ation: Endocrine Seroquel 100 mg tablet 11-05 00:00: 00 01-01 23:59 :00 No [id number] 3 tablet BEDTIME 3 tablet BEDTIME (route: oral) Med Classific ation: Central Nervous System Agents torsemide 20 mg tablet 11-05 00:00: 00 01-01 23:59 :00 No [id number] 1 tablet DAILY 1 tablet DAILY (route: oral) Med Classific ation: Cardiovas cular Therapy Agents isosorbide mononitrate ER 60 mg tablet,exte nded release 24 hr 2023-08 00:00: 00 01-01 23:59 :00 No [id number] 1 tablet DAILY 1 tablet DAILY (route: oral) Med Classific ation: Cardiovas cular Therapy Agents acetaminoph en 325 mg capsule 01-05 00:00: 00 Yes [id number] 3 capsule 3 TIMES DAILY 3 capsule 3 TIMES DAILY (route: oral) Med Classific ation: Analgesic , Anti-infl ammatory or Antipyret ic atorvastati n 80 mg tablet 01-05 00:00: 00 Yes [id number] 1 tablet EVERY AM 1 tablet EVERY AM (route: oral) Med Classific ation: Cardiovas cular Therapy Agents carbidopa 25 mg-levodopa 100 mg tablet 01-05 00:00: 00 Yes [id number] 1 tablet 2 TIMES DAILY 1 tablet 2 TIMES DAILY (route: oral) Med Classific ation: Central Nervous System Agents clopidogrel 75 mg tablet 01-05 00:00: 00 Yes [id number] 1 tablet EVERY AM 1 tablet EVERY AM (route: oral) Med Classific ation: Hematolog ical Agents duloxetine 20 mg capsule,del ayed release 01-05 00:00: 00 Yes [id number] 2 capsule EVERY AM 2 capsule EVERY AM (route: oral) Med Classific ation: Central Nervous System Agents Eliquis 5 mg tablet 01-05 00:00: 00 Yes [id number] 1 tablet 2 TIMES DAILY 1 tablet 2 TIMES DAILY (route: oral) Med Classific ation: Hematolog ical Agents ferrous sulfate 325 mg (65 mg iron) tablet 01-05 00:00: 00 Yes [id number] 1 tablet EVERY AM 1 tablet EVERY AM (route: oral) Med Classific ation: Electroly te Balance-N utritiona l Products gabapentin 100 mg capsule 01-05 00:00: 00 Yes [id number] 2 capsule 3 TIMES DAILY 2 capsule 3 TIMES DAILY (route: oral) Med Classific ation: Central Nervous System Agents Humalog KwikPen (U-100) Insulin 100 unit/mL subcutaneou s 01-05 00:00: 00 Yes [id number] Per instruc tions 3 TIMES DAILY Per instructio ns 3 TIMES DAILY (route: subcutaneo us) Med Classific ation: Endocrine Jardiance 10 mg tablet 01-05 00:00: 00 Yes [id number] 1 tablet EVERY AM 1 tablet EVERY AM (route: oral) Med Classific ation: Endocrine melatonin 5 mg capsule 01-05 00:00: 00 Yes [id number] 1 capsule BEDTIME 1 capsule BEDTIME (route: oral) Med Classific ation: Central Nervous System Agents metoprolol succinate ER 25 mg tablet,exte nded release 24 hr 01-05 00:00: 00 Yes [id number] 1 tablet EVERY AM 1 tablet EVERY AM (route: oral) Med Classific ation: Cardiovas cular Therapy Agents Miralax 17 gram oral powder packet 01-05 00:00: 00 Yes [id number] 1 packet EVERY AM 1 packet EVERY AM (route: oral) Med Classific ation: Gastroint estinal Therapy Agents mirtazapine 15 mg tablet 01-05 00:00: 00 Yes [id number] 1 tablet EVERY AM 1 tablet EVERY AM (route: oral) Med Classific ation: Central Nervous System Agents Multiple Vitamins tablet 01-05 00:00: 00 Yes [id number] 1 tablet EVERY AM 1 tablet EVERY AM (route: oral) Med Classific ation: Electroly te Balance-N utritiona l Products omeprazole 20 mg capsule,del ayed release 01-05 00:00: 00 Yes [id number] 2 capsule EVERY AM 2 capsule EVERY AM (route: oral) Med Classific ation: Gastroint estinal Therapy Agents quetiapine 100 mg tablet 01-05 00:00: 00 Yes [id number] 2 tablet BEDTIME 2 tablet BEDTIME (route: oral) Med Classific ation: Central Nervous System Agents Semglee (insulin glargine-yf gn) 100 unit/mL subcutaneou s solution 01-05 00:00: 00 Yes [id number] 65 unit BEDTIME 65 unit BEDTIME (route: subcutaneo us) Med Classific ation: Endocrine torsemide 20 mg tablet 01-05 00:00: 00 Yes [id number] 1 tablet EVERY AM 1 tablet EVERY AM (route: oral) Med Classific ation: Cardiovas cular Therapy Agents valsartan 40 mg tablet 01-05 00:00: 00 Yes [id number] 1 tablet EVERY AM 1 tablet EVERY AM (route: oral) Med Classific ation: Cardiovas cular Therapy Agents Vital Signs Vital Name Observation Time Observation Value Commen ts Temperature 2025-04-17 08:45:00.000 97.9 [degF] Temperature 2025-04-16 14:49:00.000 97.4 [degF] Temperature 2025-04-16 13:20:00.000 98.7 [degF] Temperature 2025-04-15 09:24:00.000 97.9 [degF] Temperature 2025-04-12 15:15:00.000 98.2 [degF] Temperature 2025-04-12 09:13:00.000 97.9 [degF] Temperature [...] [degF] Temperature 2025-03-06 08:00:00.000 97.9 [degF] Pulse 2025-04-17 08:45:00.000 78 /min Pulse 2025-04-16 14:49:00.000 71 /min Pulse 2025-04-16 13:20:00.000 84 /min Pulse 2025-04-15 09:24:00.000 73 /min Pulse 2025-04-12 15:15:00.000 66 /min Pulse 2025-04-12 09:13:00.000 76 /min Pulse [...] 2025-03-06 08:00:00.000 74 /min O2 Saturation (%) 2025-04-17 08:46:00.000 97 % O2 Saturation (%) 2025-04-16 14:50:00.000 97 % O2 Saturation (%) 2025-04-15 09:25:00.000 97 % [...] Saturation (%) 2025-03-06 08:01:00.000 98 % Respirations 2025-04-17 08:45:00.000 18 /min Respirations 2025-04-16 14:49:00.000 18 /min Respirations 2025-04-16 13:20:00.000 18 /min Respirations 2025-04-15 09:24:00.000 18 /min Respirations 2025-04-12 15:15:00.000 18 /min Respirations 2025-04-12 09:13:00.000 20 /min [...] Respirations 2025-03-06 08:00:00.000 20 /min Weight (lbs) 2025-04-17 08:46:00.000 215 [lb_av] Weight (lbs) 2025-04-15 09:25:00.000 216 [lb_av] Weight [...] 2025-03-06 08:01:00.000 215 [lb_av] Systolic Blood Pressure 2025-04-17 08:45:00.000 128 mm [Hg] Systolic Blood Pressure 2025-04-16 14:49:00.000 112 mm [Hg] Systolic Blood Pressure 2025-04-16 13:20:00.000 110 mm [Hg] Systolic Blood Pressure 2025-04-15 09:24:00.000 122 mm [Hg] Systolic Blood Pressure 2025-04-12 15:15:00.000 118 mm [Hg] Systolic Blood Pressure 2025-04-12 09:13:00.000 [...] 08:00:00.000 129 mm [Hg] Diastolic Blood Pressure 2025-04-17 08:45:00.000 76 mm [Hg] Diastolic Blood Pressure 2025-04-16 14:49:00.000 70 mm [Hg] Diastolic Blood Pressure 2025-04-16 13:20:00.000 76 mm [Hg] Diastolic Blood Pressure 2025-04-15 09:24:00.000 71 mm [Hg] Diastolic Blood Pressure 2025-04-12 15:15:00.000 78 mm [Hg] Diastolic Blood Pressure 2025-04-12 09:13:00.000 [...] AWARENESS FOR SAFETY AND WILL NOTIFY CLINICAL BOOK TRIMMER AND PHYSICIAN/PROVIDER WITH ANY CHANGE IN CONDITION. [code = SKILLED NURSE WILL MAINTAIN SITUATIONAL AWARENESS FOR SAFETY AND WILL NOTIFY CLINICAL BOOK TRIMMER AND PHYSICIAN/PROVIDER WITH ANY CHANGE IN CONDITION.] [...] Scheduled Test SKILLED NU RSE TO ASSESS PATIENT S PSYCHOSOCIAL STATUS TO IDENTIFY POTENTIAL ISSUES THAT MAY COMPLICATE THE PROVISION OF THE PLAN OF CARE INCLUDING THE PATIENT S ABILITY TO ACCESS COMMUNITY RESOURCES AND PSYCHOSOCIAL SUPPORT SERVICES. [code = SKILLED NURSE TO ASSESS PATIENT S PSYCHOSOCIAL STATUS TO IDENTIFY POTENTIAL ISSUES THAT MAY COMPLICATE THE PROVISION OF THE PLAN OF CARE INCLUDING THE PATIENT S ABILITY TO ACCESS COMMUNITY RESOURCES AND PSYCHOSOCIAL [...] = SKILLED NURSE FOR O/A, TEACHING, AND MANAGEMENT] Future Scheduled Test SKILLED NU RSE FOR [...] CARE WILL BE ESTABLISHED THAT MEETS PATIENT'S [facility] NEEDS AND INCLUDES PATIENT GOAL FOR HOME [...] ([facility]) [facility]]:</paragraph><paragraph>OT VISIT FOR 04-16-25</paragraph><paragraph></paragraph><paragraph> PATIENT UP AND READY FOR OT VISIT. </paragraph><paragraph></paragraph><paragraph> PATIENT CONTINUED WITH FUNCTIONAL STRENGTHENING AND ENDURANCE RETRG TO INCREASE FUNCTIONAL STRENGTHENING FOR CARRYOVER IN ADL MGT. </paragraph><paragraph> ADVANCED PATIENT TO STANDING FOR ALL THER EX ON NATURAL BASE OF SUPPORT TO DECREASE UNSTEADINESS IN STANDING ADL. PATIENT DEMONSTRATED NO LOB WITH TASKS AND THER EX TODAY. PATIENT TOLERATING REACHING OUT OF BASE OF SUPPORT WITHOUT NEED FOR EXTERNAL SUPPORT. </paragraph><paragraph></paragraph><paragraph> DC PLANNING ONGOING. </paragraph><paragraph>OT FREQUENCY IS DECREASED TO 1 TIME PER WEEK IN PREP FOR DC FROM OT SERVICES IN TWO WEEKS. </paragraph><paragraph> PATIENT REMAINS HOMEBOUND DUE TO TAXING EFFORT TO LEAVE HOME AND ASSIST OF ANOTHER PERSON DUE TO WEAKNESS.</paragraph> Encounters Start Date/Time End Date/Time Encounter Type Admission Type Attending [facility] Care Facility Care Department Encounter ID Discharge Date Discharge Status Discharge Condition Discharge Reason Percent Goals Met 2025-03-06 00:00:00 2025-05-04 00:00:00 Outpatient RECERTIFIC ATION [facility] [id number] 16.67
== END 2025-04-19 11:11 | disposition home or self-care (01) ==
LOC: HO.WFDLDS 11:10
PROVIDERS: Visit Provider Family Medicine
DX: Z00.00 Encounter for general adult medical examination without abnormal findings (principal); R74.8 Abnormal levels of other serum enzymes; I10 Essential (primary) hypertension; E11.65 Type 2 diabetes mellitus with hyperglycemia; N17.9 Acute kidney failure, unspecified; I25.5 Ischemic cardiomyopathy
CPT/HCPCS: 36415; 80048; 80053; 80061; 81001; 81003; 82043; 82570; 83036; 84443; 85025; 87086

== ENCOUNTER → 2025-05-09 23:59 | Outpatient (BNV) | payer OTHER, SELFPAY | PROVIDERS: PCP Family Medicine; Visit Provider Family Medicine | DX: F33.0 Major depressive disorder, recurrent, mild (principal); E11.49 Type 2 diabetes mellitus with other diabetic neurological complication | CPT/HCPCS: G0179 ==

== ENCOUNTER 2025-05-10 15:14 | Outpatient (AMB) | payer OTHER, SELFPAY ==
--- OUTSIDE RECORDS SUMMARY | 2025-05-10 15:16 | XMS_ITS | Encounter Summary ---
Author Organization [facility], Address [address] [place] [address] Phone Care Team Providers Care Marketing Trainee Name Role Phone Monroe García MD Primary Care Provider [phone] Reason for Visit * Reason Comments Med Refill Encounter Details Date Type Department Care Team (Late st Contact Info) Description 09/22/2021 Refill [facility] [address] [place] [phone] Kenna Plummer MD Social History Tobacco Use [...] Visit [facility] [address]. [address] [place] [phone] Bereket Olivo MD [address] [phone] documented as of this encounter Visit Diagnoses Not on filedocumented in this encounter Care Teams Marketing Trainee Relationship Specialty Start Date End Date Monroe García MD 10 [facility] [address] [place] [address] [phone] PCP - General Family Medicine 04/11/25 documented as of this encounter
--- OUTSIDE RECORDS SUMMARY | 2025-05-10 15:16 | XMS_ITS | Clinical Summary ---
Author Organization [facility] Address [address] [place] [phone] Phone Care Team Providers Care Instructor Product Inspection Name Role Phone Monroe García MD Primary [...] day by oral route. 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 [address] [phone] Bereket Olivo MD Other acute kidney failure [...] Office Visit [facility] [address] [phone] Bereket Olivo MD [address] [phone] Health Maintenance Due Date Last Done Comments [...] Creatinine, Ur 60.8 Not Estab. mg/dL [facility] Albumin, Urine 6.3 Not Estab. ug/mL [facility] Albumin/Creatin ine Ratio 10 0 - 29 mg/g creat [facility] Comment: Normal: 0 - 29 Moderately increased: 30 - 300 Severely increased: >300 Urine Urine specimen obtained by clean catch procedure / Unknown 04/16/2025 11:17 AM EDT 04/16/2025 us Bereket Olivo MD LAB URINE ORDERABLES Final Resul t [facility] [address] [place] [address] * (ABNORMAL) Vit D 25 hydroxy (04/16/2025 11:17 AM EDT) Vitamin D, 25-OH, Total 24.6(L) 30.0 - 100.0 ng/mL [facility] Comment: Vitamin D deficiency has been defined by the [place] of [employer] and an Endocrine Society practice guideline as a level of serum 25-OH vitamin D less than 20 ng/mL (1,2). The Endocrine Society went on to further define vitamin D insufficiency as a level between 21 and 29 ng/mL (2). 1. IOM ([place] of Medicine). 2010. Dietary reference intakes for [...] ORDERABLES Final Resul t Performing Organization Address City/[facility]/ZIP Co de Phone Number [employer] [facility] [address] [place] [address] * (ABNORMAL) PTH, intact (04/16/2025 11:17 AM EDT) PTH 72(H) 15 - 65 pg/mL [facility] Blood Venous blood / Unknown 04/16/2025 11:17 AM EDT 04/16/2025 Bereket Olivo MD LAB BLOOD ORDERABLES Final Resul t [employer] [facility] [address] [place] [address] * (ABNORMAL) Renal funtion panel (04/16/2025 11:17 AM EDT) Glucose 285(H) 70 - 99 mg/dL [facility] BUN 27 8 - 27 mg/dL [facility] Creatinine 1.45(H) 0.57 - 1.00 mg/dL [facility] eGFR CKD-EPI CR 2020 38(L) >59 mL/min/1.7 3 [facility] BUN/Creatinine Ratio 19 12 - 28 [facility] Sodium 139 134 - 144 mmol/L [facility] Potassium 5.4(H) 3.5 - 5.2 mmol/L [facility] Chloride 100 96 - 106 mmol/L [facility] Bicarbonate (CO2) 14(L) 20 - 29 mmol/L [facility] Calcium 10.3 8.7 - 10.3 mg/dL [facility] Albumin 4.6 3.8 - 4.8 g/dL [facility] Phosphorus 4.0 3.0 - 4.3 mg/dL [facility] Blood Venous blood / Unknown 04/16/2025 11:17 AM EDT 04/16/2025 us Bereket Olivo MD LAB BLOOD ORDERABLES Final Resul t [facility] [address] [place] [address] * Renal Function Panel (External Lab) (03/18/2025) Glucose 154 mg/dL BUN 24 mg/dL eGFR 39 Sodium 140 mEq/L Potassium 4.9 mEq/L Chloride 102 Carbon Dioxide 22 mmol/L Calcium 9.9 mg/dL Creatinine 1.41 mg/dL Anion Gap 16 Blood 03/18/2025 us Historical Provider LAB BLOOD ORDERABLES Kera l Result from Last 3 Months Insurance [facility] ([id number]) [place] [phone] Care Teams Instructor Product Inspection Relationship Specialty Start Date End Date Monroe García MD [address] [phone] PCP - General Family Medicine 04/11/25
--- NOTE | 2025-05-10 15:18 | MHC.OFFVIS ---
Vital Signs 05/10/25 15:22 Height 5 ft 3 in Weight 216 lb 4.375 oz BMI 38.3 BP 114/56 L Blood Pressure Location Lt brachial Position Sitting Pulse 91 Pulse Source Pulse Oximeter Pulse Oximetry (%) 94 Oxygen Delivery Method Room Air Intake Visit Reasons: DM Intake Note: Patient presents today for a follow-up on Type 2 Diabetes Mellitus: Last Diabetic eye exam was on: DUE Last Podiatry exam was on: Does not see a Curriculum Counselor Most recent HbA1c: 7.1% 04/19/2025 Random Glucose- 199 mg/dL, Today through Danica view, refused finger stick. Director Of Design Required: No Accompanied by: Cyril Allergies Cephalosporins (CEPHALOSPORINS) Allergy (Intermediate, Verified 05/10/25 15:23) RASH oxycodone (From Tylox) Allergy (Intermediate, Verified 05/10/25 15:23) RASH Sulfa (Sulfonamide Antibiotics) (SULFA (SULFONAMIDE ANTIBIOTICS)) Allergy (Intermediate, Verified 05/10/25 15:23) RASH lisinopril Adverse Reaction (Severe, Verified 05/10/25 15:23) contraindication sulfamethoxazole (From Bactrim) Adverse Reaction (Severe, Verified 05/10/25 15:23) Rash trimethoprim (From Bactrim) Adverse Reaction (Severe, Verified 05/10/25 15:23) Rash naproxen (NAPROXEN) Adverse Reaction (Intermediate, Verified 05/10/25 15:23) contraindication Medication List - Last Reconciled 05/10/25 by EV Hemphill acetaminophen 325 mg PO QID PRN alcohol swabs (Alcohol Wipes) 1 pad topical TID-QID apixaban (Eliquis) 5 mg PO BID 30 days atorvastatin 80 mg (2 x 40 mg) PO DAILY 30 days blood sugar diagnostic (FreeStyle Lite Strips) As directed TID blood-glucose meter (FreeStyle Lite Meter kit) As directed blood-glucose sensor (FreeStyle Danica 3 Plus Sensor device) every 15 days for use with reader carbidopa-levodopa 25-100 mg 1 tab PO BID 30 days carbidopa-levodopa 25-100 mg ER 1 tab PO BID 30 days [chair lift Use chair lift daily as directed.; (height 5'3'') (weight 218 lbs)] chair, wheel (Wheel chair) Lightweight Wheel Chair. Daily, As directed, 999 days clopidogrel 75 mg PO DAILY 30 days clotrimazole 1% 1 appl topical BID 2 weeks compr.stocking,knee,long,large As directed, 90 days [diabetic shoes with insoles for heel pain and peripheral neuropathy] diaper,brief,adult,disposable (Disposable Brief Jumbo X-Large) As directed duloxetine 40 mg (2 x 20 mg) PO QAM empagliflozin (Jardiance) 25 mg PO DAILY ferrous fumarate 325 mg PO DAILY 30 days fluconazole 150 mg PO Q3D 2 doses FreeStyle Danica 3 [place] (blood-glucose,senior product development manager,cont) As directed NS FreeStyle Danica 3 [place] (blood-glucose,senior product development manager,cont) As directed for use with sensors NS gabapentin 200 mg (2 x 100 mg) PO TID 30 days glucagon 3 mg/actuation (Baqsimi) 3 mg intranasal ONCE PRN 30 days MDD 6mg insulin aspart U-100 (Novolog FlexPen U-100 Insulin aspart) subcutaneously use as directed before dinner; 151-200 Give 2 units 201-250 Give 4 units 251-300 Give 6 units 301-350 Give 8 units 351-400 Give 10 units 401-450 Give 12 units > 450 Give 12 units & call MD Add 2 units to scale for breakfast and lunch insulin glargine (Lantus Solostar U-100 Insulin) 64 units subcut DAILY lancets (FreeStyle Lancets) As directed melatonin 5 mg PO BEDTIME PRN 30 days metoprolol succinate ER 50 mg (2 x 25 mg) PO DAILY 30 days metronidazole 500 mg PO BID mirtazapine 15 mg PO BEDTIME 30 days miscellaneous medical supply Lift Chair. Daily As directed, 999 days qaftxyzs-adbg-VV-calcium-mins 9 mg iron-400 mcg 1 tab PO DAILY 30 days nitroglycerin (Nitrostat) 0.4 mg sublingual Q5M PRN 1 month pantoprazole 40 mg (2 x 20 mg) PO DAILY 30 days pen needle, diabetic (BD Ultra-Fine Micro Pen Needle) To treat BS 4 times a day, As directed, 90 days phenazopyridine (Pyridium) 100 mg PO TID PRN 2 days quetiapine 300 mg (3 x 100 mg) PO BEDTIME sennosides-docusate sodium 8.6-50 mg (Senexon-S) 1 tab-cap PO BEDTIME spironolactone 25 mg PO DAILY terconazole 0.8% 5 grams vaginal BEDTIME 14 days torsemide 30 mg (1.5 x 20 mg) PO DAILY 90 days valsartan 40 mg PO DAILY 30 days walker (Ultra-Light Rollator misc) Rollator?walker?with?seat?and?brakes.??Daily?As directed, 999 days HPI Comments Details: This is a 74-year-old female presenting for diabetic management. She is accompanied by her RIGGER APPRENTICE, Cyril. She was last seen by my colleague on 01/22/2025. She was initially diagnosed with type 2 diabetes in 1999. Hemoglobin A1c 7.1% 04/19/2025. Reviewed CGM report [place] 7.3% Average glucose 165 Very high 2% High 33% Target range 65% 0% hypoglycemia She has postprandial hyperglycemia during the day. Current regimen: Lantus 64 units, Jardiance 25 mg daily, Novolog before meals on a sliding scale: 151-200 Give 2 units 201-250 Give 4 units 251-300 Give 6 units 301-350 Give 8 units 351-400 Give 10 units 401-450 Give 12 units > 450 Give 12 units & call MD Past medication: Metformin was stopped due to low GFR. GLP 1 contraindicated due to history of gastroparesis requiring hospitalization Complications: Nephropathy, neuropathy (followed by nephrology), gastroparesis, CAD, retinopathy ([place] [facility] and LASIK, intravitreal injection every 4 weeks) Hypoglycemia: lowest sugar was 70, no symptoms ROS: Constitutional: No fevers or chills or unexplained weight loss Respiratory: No shortness of breath Cardiovascular: No chest pain Neurologic: No headache, dizziness, syncope Endocrine: No cold or heat intolerance. No polyuria or polydipsia. Physical exam: Constitutional: Alert, in no distress. Neck: Supple, Full range of motion. No lymphadenopathy. No palpable thyroid masses. Respiratory: Clear to auscultation. Cardiovascular: S1 S2 regular. No murmurs. Neurologic: No focal neurological deficits. Extremities: Warm and well perfused. No clubbing, cyanosis . Trace bilateral pretibial edema. 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 Surgical History History of colonoscopy H/O endoscopy History of implantable cardioverter-defibrillator (ICD) placement (~02/09/17) History of cardiac catheterization (~08/2015) History of umbilical hernia repair History of appendectomy History of cholecystectomy History of tubal ligation Family History (Updated 04/04/25 @ 10:45 by Yamilet Mazariegos CMA) Father Myocardial infarction Mother Uterine cancer Lung cancer Maternal Aunt Uterine cancer Mouth cancer Social History Housing: House Patient Tobacco Use Status: Never used Tobacco e-Cigarette/Vaping Use: Never Used Second Hand Smoke Exposure: No service: No Current occupational status: retired Current occupational exposures/hazards: No Cognitive needs: Yes Hearing needs: No Vision needs: Yes Physical Exam Vital Signs: Last Vital Signs Pulse 91 05/10/25 15:22 BP 114/56 L 05/10/25 15:22 Pulse Ox 94 05/10/25 15:22 Oxygen Delivery Method Room Air 05/10/25 15:22 BMI result Body Mass Index 38.3 Office Procedures Glucose Monitoring Details Details: see [facility] [id number] - Glucose monitoring, continuous-physician I&R Procedure code (CPT) selection complete Results Reviewed Results Reviewed: Laboratory Tests 04/19/25 11:15 Plt Count 289 D Creatinine 1.54 H Estimated GFR 33 Hemoglobin A1c % 7.1 H Triglycerides 184 H Cholesterol 175 LDL Cholesterol, Calc 96 HDL Cholesterol 43 TSH 2.22 Urine Creatinine 110.69 Urine Microalbumin 22.0 Microalb/Creat Ratio 19.8 Assessment & Plan Assessment & Plan (1) Type II diabetes with assisted use of insulin: Code(s): E11.9 - Type 2 diabetes mellitus without complications; Z79.4 - intermediate card tender (current) use of insulin Category: Medical Qualifiers: Diabetes mellitus complication status: with kidney complications Diabetes mellitus complication detail: with nephropathy Qualified Code(s): E11.21 - Type 2 diabetes mellitus with diabetic nephropathy; Z79.4 - jail (current) use of insulin Plan: In summary this is a 74-year-old female with type 2 diabetes with complications. She will continue to bring her CGM to all appointments. She has a backup glucometer. We reviewed treatment of hypoglycemia. She declines prescription for glucose gel and glucose tablets. She carries skittles with her. Continue Lantus 64 units nightly and Jardiance 25 mg daily. Novolog scale for dinner 151-200 Give 2 units 201-250 Give 4 units 251-300 Give 6 units 301-350 Give 8 units 351-400 Give 10 units 401-450 Give 12 units > 450 Give 12 units & call MD Please adjust Novolog scale for breakfast and lunch to the followin-200 Give 4 units 201-250 Give 6 units 251-300 Give 8 units 301-350 Give 10 units 351-400 Give 12 units 401-450 Give 14 units > 450 Give 14 units & call MD Diabetic diet reinforced. (2) Hypertension, essential: Code(s): I10 - Essential (primary) hypertension Category: Medical Plan: Continue current regimen. Recommended low-sodium diet. (3) Obesity associated with high levels of insulin: Code(s): E66.8 - Other obesity Category: Medical Plan: Continue efforts at weight loss including controlling portion sizes and following a low carbohydrate, low sugar diet. Plan Follow up in 3 months for type 2 diabetes. Orders: Orders AMB Glucose Monitoring Today EV Hemphill E11.9 - Type 2 diabetes mellitus without complications Medications: New alcohol swabs (Alcohol Wipes) 1 pad topical TID-QID 200 ea 3RF EV Hemphill E11.9 - Type 2 diabetes mellitus without complications, Z79.4 - jail (current) use of insulin Changed From insulin aspart U-100 (Novolog FlexPen U-100 Insulin aspart) subcutaneously use as directed; 151-200 Give 2 units 201-250 Give 4 units 251-300 Give 6 units 301-350 Give 8 units 351-400 Give 10 units 401-450 Give 12 units > 450 Give 12 units & call MD 30 mL 3RF 30 days To insulin aspart U-100 (Novolog FlexPen U-100 Insulin aspart) subcutaneously use as directed before dinner; 151-200 Give 2 units 201-250 Give 4 units 251-300 Give 6 units 301-350 Give 8 units 351-400 Give 10 units 401-450 Give 12 units > 450 Give 12 units & call MD Add 2 units to scale for breakfast and lunch Marisol Booth NP From insulin glargine (Lantus Solostar U-100 Insulin) 60 units (0.6 mL) subcut DAILY 30 days 18 mL 3RF To insulin glargine (Lantus Solostar U-100 Insulin) 64 units subcut DAILY Marisol Booth NP Patient Instructions: Current regimen: Lantus 64 units, Humalog before meals on a sliding scale, Jardiance 25 mg daily Novolog scale for dinner 151-200 Give 2 units 201-250 Give 4 units 251-300 Give 6 units 301-350 Give 8 units 351-400 Give 10 units 401-450 Give 12 units > 450 Give 12 units & call MD Please adjust Novolog scale for breakfast and lunch to the followin-200 Give 4 units 201-250 Give 6 units 251-300 Give 8 units 301-350 Give 10 units 351-400 Give 12 units 401-450 Give 14 units > 450 Give 14 units & call MD If you experience low blood sugar, treat this by eating a chewable fruit candy like skittles or jelly beans (about 8 pieces), 4 ounces (1/2 cup) of fruit juice (not diet), 1 tablespoon of honey or 4 glucose tablets. If your blood sugar is under 50, take double the amount of one of the above. Recheck your blood sugar in 15 minutes. Coding Level of Care Code Est Pt Level 4 (19769) Diagnoses Type 2 diabetes mellitus with diabetic nephropathy, with long-term current use of insulin E11.21; Z79.4 Diabetes mellitus complication status: with kidney complications Diabetes mellitus complication detail: with nephropathy Hypertension, essential I10 Obesity associated with high levels of insulin E66.8 CPT Codes Details - CPT: 95529 - Glucose monitoring, continuous-physician I&R ([id number])
[2025-05-10 15:22] VITALS: BP 114/56; PULSE 91; O2SAT 94; BMI 38.3
== END 2025-05-10 15:52 | disposition home or self-care (01) ==
LOC: HO.ENCR 15:14
PROVIDERS: PCP Family Medicine; Visit Provider Physician Assistant Medical
DX: E11.21 Type 2 diabetes mellitus with diabetic nephropathy (principal); Z79.4 Long term (current) use of insulin; I10 Essential (primary) hypertension

== ENCOUNTER → 2025-05-10 15:14 | Outpatient (BNVA) | payer OTHER, SELFPAY | PROVIDERS: PCP Family Medicine; Visit Provider Physician Assistant Medical | DX: E11.21 Type 2 diabetes mellitus with diabetic nephropathy (principal); Z79.4 Long term (current) use of insulin; I10 Essential (primary) hypertension; E66.9 Obesity, unspecified | CPT/HCPCS: 99212 ==

== ENCOUNTER 2025-05-29 13:54 | Outpatient (AMB) | payer OTHER, SELFPAY ==
--- NOTE | 2025-05-29 14:28 | A.OFFVIS_ITS ---
Vital Signs 05/29/25 14:32 Height 5 ft 8 in Weight 215 lb BMI 32.7 BP 110/74 Blood Pressure Location Rt brachial Position Sitting Pulse 90 Pulse Source Pulse Oximeter Pulse Oximetry (%) 94 Oxygen Delivery Method Room Air Intake Visit Reasons: FU Intake Note: MRI cancelled and not done due to patient having leads. updated to CT scan instead. done 04/13/24. med trial carbidopa levadopa Interventionist Required: No Accompanied by: Self / Same As Patient Allergies Cephalosporins (CEPHALOSPORINS) Allergy (Intermediate, Verified 05/29/25 14:36) RASH oxycodone (From Tylox) Allergy (Intermediate, Verified 05/29/25 14:36) RASH Sulfa (Sulfonamide Antibiotics) (SULFA (SULFONAMIDE ANTIBIOTICS)) Allergy (Intermediate, Verified 05/29/25 14:36) RASH lisinopril Adverse Reaction (Severe, Verified 05/29/25 14:36) contraindication sulfamethoxazole (From Bactrim) Adverse Reaction (Severe, Verified 05/29/25 14:36) Rash trimethoprim (From Bactrim) Adverse Reaction (Severe, Verified 05/29/25 14:36) Rash naproxen (NAPROXEN) Adverse Reaction (Intermediate, Verified 05/29/25 14:36) contraindication Medication List - Last Reconciled 05/29/25 by RAY Patrick acetaminophen 325 mg PO QID PRN alcohol swabs (Alcohol Wipes) 1 pad topical TID-QID apixaban (Eliquis) 5 mg PO BID 30 days atorvastatin 80 mg (2 x 40 mg) PO DAILY 30 days blood sugar diagnostic (FreeStyle Lite Strips) As directed TID blood-glucose meter (FreeStyle Lite Meter kit) As directed blood-glucose sensor (FreeStyle Danica 3 Plus Sensor device) every 15 days for use with reader carbidopa-levodopa 25-100 mg ER 1 tab PO TID 30 days [chair lift Use chair lift daily as directed.; (height 5'3'') (weight 218 lbs) ] chair, wheel (Wheel chair) Lightweight Wheel Chair. Daily, As directed, 999 days clopidogrel 75 mg PO DAILY 30 days clotrimazole 1% 1 appl topical BID 2 weeks compr.stocking,knee,long,large As directed, 90 days [diabetic shoes with insoles for heel pain and peripheral neuropathy] diaper,brief,adult,disposable (Disposable Brief Jumbo X-Large) As directed duloxetine 40 mg (2 x 20 mg) PO QAM empagliflozin (Jardiance) 25 mg PO DAILY ferrous fumarate 325 mg PO DAILY 30 days fluconazole 150 mg PO Q3D 2 doses FreeStyle Danica 3 [place] (blood-glucose,environmental adviser,cont) As directed NS FreeStyle Danica 3 [place] (blood-glucose,environmental adviser,cont) As directed for use with sensors NS gabapentin 200 mg (2 x 100 mg) PO TID 30 days glucagon 3 mg/actuation (Baqsimi) 3 mg intranasal ONCE PRN 30 days MDD 6mg insulin aspart U-100 (Novolog FlexPen U-100 Insulin aspart) subcutaneously use as directed before dinner; 151-200 Give 2 units 201-250 Give 4 units 251-300 Give 6 units 301-350 Give 8 units 351-400 Give 10 units 401-450 Give 12 units > 450 Give 12 units & call MD Add 2 units to scale for breakfast and lunch insulin glargine (Lantus Solostar U-100 Insulin) 64 units subcut DAILY lancets (FreeStyle Lancets) As directed melatonin 5 mg PO BEDTIME PRN 30 days metoprolol succinate ER 50 mg (2 x 25 mg) PO DAILY 30 days metronidazole 500 mg PO BID mirtazapine 15 mg PO BEDTIME 30 days miscellaneous medical supply Lift Chair. Daily As directed, 999 days ehfpngnk-itgs-FW-calcium-mins 9 mg iron-400 mcg 1 tab PO DAILY 30 days nitroglycerin (Nitrostat) 0.4 mg sublingual Q5M PRN 1 month pantoprazole 40 mg (2 x 20 mg) PO DAILY 30 days pen needle, diabetic To treat BS 4 times a day, As directed, 90 days phenazopyridine (Pyridium) 100 mg PO TID PRN 2 days quetiapine 300 mg (3 x 100 mg) PO BEDTIME sennosides-docusate sodium 8.6-50 mg (Senexon-S) 1 tab-cap PO BEDTIME spironolactone 25 mg PO DAILY terconazole 0.8% 5 grams vaginal BEDTIME 14 days torsemide 30 mg (1.5 x 20 mg) PO DAILY 90 days valsartan 40 mg PO DAILY 30 days walker (Ultra-Light Rollator mis) Rollator?walker?with?seat?and?brakes.??Daily?As directed, 999 days HPI Comments Details: 74-yr-old female presents for follow-up of tremor, which started in early 2023. 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 PMH includes: h/o stroke- states mini- stroke 7 yrs ago w/o residual effects, dual-chamber pacemaker for a-fib tx (implanted 7 yrs ago prior to the ? of stroke), ischemic cardiomyopathy, CHF, HTN, HLD, CKD, diabetes, anemia, arthritis, depression, bipolar, headache. She reports she had a recent [facility] admission for chest pain, which was felt to be atypical chest pain. She states she is due to have her pacemaker battery replaced in the near future. Interval 03/20/[address], again showed calvarial thickening. Since the last visit, patient has started carbidopa levodopa ER 25-100 mg 1 tab b.i.d., are she is not sure if this is helping her tremor any. Pt is right handed. ADL status: Needs help due to gait and balance issues. Has a DESIZING MACHINE OPERATOR. Lives w/ a lead advisor. IADL status: She can manage her finances. Cannot cook or do housekeeping d/t cannot stand for long. Fine-motor skills: No issues Micrographia: Writing is not as good Vision changes: impaired vision d/t macular degeneration, dry eye Hypophonia: denies any changes Hyposmia: denies Dysphagia: sometimes w/ rice or hard food- currently edentulous- states needs to find a new dentist to obtain dentures. Drooling: Sometimes at night Orthostatic lightheadedness: Once in a while- if stands suddenly or BP is low GI: Constipation: manages w/ prn dulcolax, miralax, and senna. : s/p UTI. urinary incontinence d/t diurectics. Slowness: feels slower, Freezing episodes: denies Tremor: Usually LUE all the time , and sometimes in the RUE Involuntary movements: Denies Dyskinesia: Denies Musculoskeletal: Left hand becomes stiff, postures with fingers straight out Gait changes: Uses a walker. Falls- Denies interval falls Sleep difficulty: Sleeps ok but can have some difficulties, takes quetiapine. States she has mild SIMRAN- dx'd 20 + yrs ago, but could not tolerate the CPAP mask. That I think is just worth kind of considering so 1 is that it it itself has a risk to give you more Parasomnias: Rarely calls out in her sleep Memory impairment: States it is ok Hallucinations: Denies Mood: Mood is stable- may feel down at times. Not currently f/b psychiatry or therapist- states she has not needed anyone. Usual exercise: Her home care nurse is requesting home PT From initial movement evaluation HPI: History of concussion/head injury? None History of neuroleptic (metoclopramide/antipsychotics) use? Quetiapine 300mg qhs, x's yrs- was previously on 600mg. Uses metoclopramide prn gastroparesis. History of psychiatric hospitalizations? Has had 3-4 psychiatric hospitalizations over the last 30 yrs- last one was about 8 yrs ago. History of occupational chemical exposures? 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 [place] 13- does not believe they sprayed pesticides. Family history of movement disorders? None Family history of mood disorder or suicide? Denies [facility] Medical History (Updated 05/29/25 @ 15:42 by RAY Patrick) Postmenopausal Type II diabetes with chcf use of insulin Diabetic neuropathy Anemia Type 2 diabetes mellitus with unspecified complications Atherosclerotic cardiovascular disease Cardiac resynchronization therapy defibrillator (BATTERY STACKER-D) in place Surgical History History of colonoscopy H/O endoscopy History of implantable cardioverter-defibrillator (ICD) placement (~02/09/17) History of cardiac catheterization (~08/2015) History of umbilical hernia repair History of appendectomy History of cholecystectomy History of tubal ligation Family History Father Myocardial infarction Mother Uterine cancer Lung cancer Maternal Aunt Uterine cancer Mouth cancer Social History Housing: House Patient Tobacco Use Status: Never used Tobacco e-Cigarette/Vaping Use: Never Used Second Hand Smoke Exposure: No service: No Current occupational status: retired Current occupational exposures/hazards: No Cognitive needs: Yes Hearing needs: No Vision needs: Yes Physical Exam Vital Signs: Last Vital Signs Pulse 90 05/29/25 14:32 BP 110/74 05/29/25 14:32 Pulse Ox 94 05/29/25 14:32 Oxygen Delivery Method Room Air 05/29/25 14:32 BMI result Body Mass Index 32.7 Const General: cooperative and no acute distress HEENT Face and sinus: Yes other (Decreased expression and blink) Resp Effort & Inspection: normal respiratory effort and able to speak in complete sentences Cardio Rate: regular rate Rhythm: regular rhythm Neuro Other: General: A&Ox's 3 Expression: Mild decreased expression and blink, with mild left sided facial droop Voice: Soft Tremor: LUE rest and re-emergent postural tremor. No visible chin tremor appreciated today BUE: Decreased lisa, w/ decreased fluidity on left Tone: BUE slight tone Dyskinesia: None FFM: Bradykinesia, more so on left Foot taps: Bradykinesia, more so on left Gait: Slow to stand, uses hands to push up, slight left shoulder drop w/ forward stoop, short, but quick steady steps with walker. Psych: Pleasant affect. Extrem Other: BLE distal edema Psych Mental Status: mental status grossly normal Speech and movement: Normal speech and movement present Affect: normal affect Attitude: cooperative Thought process: Normal thought process present Assessment & Plan Assessment & Plan (1) Tremor of left hand: Code(s): R25.1 - Tremor, unspecified Category: Medical (2) Unsteady gait: Code(s): R26.81 - Unsteadiness on feet Category: Medical (3) Hyperostosis: Code(s): M85.80 - Other specified disorders of bone density and structure, unspecified site Category: Medical Plan Reviewed interval head CT results, which again showed calvarial thickness. Therefore, we will check bone density scan and labs for common etiologies. Discontinue carbidopa levodopa ER 25-100 mg 1 tab b.i.d. order Start carbidopa levodopa ER 25-100 mg tablet, 1 tab 3 times per day, ideally 30 minutes before meals. Concur with starting home PT. Continue to use walker. Future consideration: [facility]Tscan, as pt has chronic h/o high dose quetiapine use, prn matoclopramide use, and h/o psychiatric hospitalizations. Will follow-up upon review of above and patient to follow-up in clinic in 6 months or sooner prn. Orders: Orders XR DEXA axial skeleton Today M47.814 - Spondylosis without myelopathy or radiculopathy, thoracic region, M85.80 - Other specified disorders of bone density and structure, unspecified site, Z78.0 - Asymptomatic menopausal state Vitamin D 25-OH (D2 and D3) Today E11.40 - Type 2 diabetes mellitus with diabetic neuropathy, unspecified, E55.9 - Vitamin D deficiency, unspecified, E66.8 - Other obesity, M47.814 - Spondylosis without myelopathy or radiculopathy, thoracic region, M85.80 - Other specified disorders of bone density and structure, unspecified site Phosphorus Today E11.40 - Type 2 diabetes mellitus with diabetic neuropathy, unspecified, E66.8 - Other obesity, M47.814 - Spondylosis without myelopathy or radiculopathy, thoracic region, M85.80 - Other specified disorders of bone density and structure, unspecified site Complete Blood Count Auto Diff Today E11.40 - Type 2 diabetes mellitus with diabetic neuropathy, unspecified, E66.8 - Other obesity, M47.814 - Spondylosis without myelopathy or radiculopathy, thoracic region, M85.80 - Other specified disorders of bone density and structure, unspecified site Comprehensive [place]. Panel Fast Today E11.40 - Type 2 diabetes mellitus with diabetic neuropathy, unspecified, E66.8 - Other obesity, M47.814 - Spondylosis without myelopathy or radiculopathy, thoracic region, M85.80 - Other specified disorders of bone density and structure, unspecified site Calcium, Ionized Today E11.40 - Type 2 diabetes mellitus with diabetic neuropathy, unspecified, E66.8 - Other obesity, M47.814 - Spondylosis without myelopathy or radiculopathy, thoracic region, M85.80 - Other specified disorders of bone density and structure, unspecified site Magnesium Today E11.40 - Type 2 diabetes mellitus with diabetic neuropathy, unspecified, E66.8 - Other obesity, M47.814 - Spondylosis without myelopathy or radiculopathy, thoracic region, M85.80 - Other specified disorders of bone density and structure, unspecified site Parathyroid Hormone Intact Today E11.40 - Type 2 diabetes mellitus with diabetic neuropathy, unspecified, E66.8 - Other obesity, M47.814 - Spondylosis without myelopathy or radiculopathy, thoracic region, M85.80 - Other specified disorders of bone density and structure, unspecified site TSH reflex Free T4 Today E11.40 - Type 2 diabetes mellitus with diabetic neuropathy, unspecified, E66.8 - Other obesity, M47.814 - Spondylosis without myelopathy or radiculopathy, thoracic region, M85.80 - Other specified disorders of bone density and structure, unspecified site Medications: Changed From carbidopa-levodopa 25-100 mg ER 1/2 hour before breakfast and lunch (may take with cracker) 1 tab PO BID 30 days 60 tabs 6RF To carbidopa-levodopa 25-100 mg ER 1/2 hour before breakfast, lunch, and dinner (may take with a cracker) 1 tab PO TID 90 tabs 6RF 30 days Discontinued carbidopa-levodopa 25-100 mg take w/ a cracker 30 minutes before breakfast and dinner, Discontinued Reason: Doctor's Order 1 tab PO BID 30 days 60 tabs 3RF Coding Level of Care Code Est Pt Level 4 (11650) Complex EM visit Add On G2211 Diagnoses Tremor of left hand R25.1 Unsteady gait R26.81 Hyperostosis M85.80
[2025-05-29 14:32] VITALS: BP 110/74; PULSE 90; O2SAT 94; BMI 32.7
== END 2025-05-29 15:35 | disposition home or self-care (01) ==
LOC: HO.HSMS 13:55
PROVIDERS: PCP Family Medicine; Visit Provider Nurse Practitioner Family
DX: R25.1 Tremor, unspecified (principal); R26.81 Unsteadiness on feet; M85.80 Other specified disorders of bone density and structure, unspecified site
CPT/HCPCS: 99214; G2211

== ENCOUNTER → 2025-05-29 13:54 | Outpatient (BNVA) | payer OTHER, SELFPAY | PROVIDERS: PCP Family Medicine; Visit Provider Nurse Practitioner Family | DX: R26.81 Unsteadiness on feet (principal); R25.1 Tremor, unspecified; M85.80 Other specified disorders of bone density and structure, unspecified site; E11.40 Type 2 diabetes mellitus with diabetic neuropathy, unspecified; M47.814 Spondylosis without myelopathy or radiculopathy, thoracic region; E66.9 Obesity, unspecified | CPT/HCPCS: 99212 ==

== ENCOUNTER 2025-06-11 11:05 | Outpatient (AMB) | payer OTHER, SELFPAY ==
--- NOTE | 2025-06-11 11:24 | MHC.PC.OV ---
Vital Signs 06/11/25 11:37 Height 5 ft 8 in Weight 218 lb 6 oz BMI 33.2 BP 110/60 Blood Pressure Location Rt brachial Position Sitting Respiration 16 Pulse 75 Pulse Source Pulse Oximeter Temp 97.7 F Temp Source Oral Pulse Oximetry (%) 95 Oxygen Delivery Method Room Air Intake Visit Reasons: D/C on 05/21 from [facility] Intake Note: patient is scheduled for a d/c follow with pcp from [facility] [place] Allergies Cephalosporins (CEPHALOSPORINS) Allergy (Intermediate, Verified 06/11/25 11:34) RASH oxycodone (From Tylox) Allergy (Intermediate, Verified 06/11/25 11:34) RASH Sulfa (Sulfonamide Antibiotics) (SULFA (SULFONAMIDE ANTIBIOTICS)) Allergy (Intermediate, Verified 06/11/25 11:34) RASH lisinopril Adverse Reaction (Severe, Verified 06/11/25 11:34) contraindication sulfamethoxazole (From Bactrim) Adverse Reaction (Severe, Verified 06/11/25 11:34) Rash trimethoprim (From Bactrim) Adverse Reaction (Severe, Verified 06/11/25 11:34) Rash naproxen (NAPROXEN) Adverse Reaction (Intermediate, Verified 06/11/25 11:34) contraindication Medication List - Last Reconciled 06/11/25 by Monroe García MD acetaminophen 325 mg PO QID PRN alcohol swabs (Alcohol Wipes) 1 pad topical TID-QID apixaban (Eliquis) 5 mg PO BID 30 days atorvastatin 80 mg (2 x 40 mg) PO DAILY 30 days blood sugar diagnostic (FreeStyle Lite Strips) As directed TID blood-glucose meter (FreeStyle Lite Meter kit) As directed blood-glucose sensor (FreeStyle Danica 3 Plus Sensor device) every 15 days for use with reader carbidopa-levodopa 25-100 mg ER 1 tab PO TID 30 days [chair lift Use chair lift daily as directed.; (height 5'3'') (weight 218 lbs)] chair, wheel (Wheel chair) Lightweight Wheel Chair. Daily, As directed, 999 days clopidogrel 75 mg PO DAILY 30 days clotrimazole 1% 1 appl topical BID 2 weeks compr.stocking,knee,long,large As directed, 90 days [diabetic shoes with insoles for heel pain and peripheral neuropathy] diaper,brief,adult,disposable (Disposable Brief Jumbo X-Large) As directed duloxetine 40 mg (2 x 20 mg) PO QAM empagliflozin (Jardiance) 25 mg PO DAILY ferrous fumarate 325 mg PO DAILY 30 days fluconazole 150 mg PO Q3D 2 doses FreeStyle Danica 3 [place] (blood-glucose,terrazzo supervisor,cont) As directed NS FreeStyle Danica 3 [place] (blood-glucose,terrazzo supervisor,cont) As directed for use with sensors NS gabapentin 200 mg (2 x 100 mg) PO TID 30 days glucagon 3 mg/actuation (Baqsimi) 3 mg intranasal ONCE PRN 30 days MDD 6mg insulin aspart U-100 (Novolog FlexPen U-100 Insulin aspart) subcutaneously use as directed before dinner; 151-200 Give 2 units 201-250 Give 4 units 251-300 Give 6 units 301-350 Give 8 units 351-400 Give 10 units 401-450 Give 12 units > 450 Give 12 units & call MD Add 2 units to scale for breakfast and lunch insulin glargine (Lantus Solostar U-100 Insulin) 64 units subcut DAILY lancets (FreeStyle Lancets) As directed melatonin 5 mg PO BEDTIME PRN 30 days metoprolol succinate ER 50 mg (2 x 25 mg) PO DAILY 30 days metronidazole 500 mg PO BID mirtazapine 15 mg PO BEDTIME 30 days miscellaneous medical supply Lift Chair. Daily As directed, 999 days endtnpaj-xodd-YZ-calcium-mins 9 mg iron-400 mcg 1 tab PO DAILY 30 days nitroglycerin (Nitrostat) 0.4 mg sublingual Q5M PRN 1 month pantoprazole 40 mg (2 x 20 mg) PO DAILY 30 days pen needle, diabetic To treat BS 4 times a day, As directed, 90 days phenazopyridine (Pyridium) 100 mg PO TID PRN 2 days quetiapine 300 mg (3 x 100 mg) PO BEDTIME sennosides-docusate sodium 8.6-50 mg (Senexon-S) 1 tab-cap PO BEDTIME spironolactone 25 mg PO DAILY terconazole 0.8% 5 grams vaginal BEDTIME 14 days torsemide 30 mg (1.5 x 20 mg) PO DAILY 90 days valsartan 40 mg PO DAILY 30 days walker (Ultra-Light Rollator [facility]) Rollator?walker?with?seat?and?brakes.??Daily?As directed, 999 days Tobacco use date assessed: 04/17/25 Dental Screening Dental Screen Date: 04/17/25 HPI D/C on 05/21 from [facility] HPI Details 74 y/o female presents to f/u hospital discharge visit from [facility]. Inpatient follow-up 926 through 05/20/2025 for chest pain radiating to left arm and left jaw, unrelieved by nitroglycerin which had work in the past. EKG and troponins negative for ACS. Chest x-ray negative. Cardiac catheterization deemed unnecessary. Stress test performed with no acute ischemia/interval change from her prior in 2022. Hospitalization complicated by LUDY and hypotension - her Imdur, valsartan and torsemide were held initially and then restarted on discharge with instructions to take torsemide as needed. Had follow-up with Cardiology already and they feel that her chest pain is likely secondary to microvascular disease and they plan to titrate up her isosorbide and continue nitroglycerin as needed. TCM TCM Information Date of Discharge 05/20/25 Discharged From Other ([facility]) Interactive Contact Date (Reference documentation from this date) 06/11/25 HPI Comments History of Present Illness Details Documentation assistance for Monroe García MD, was provided by Jose Wilkins,? Morning Nanny on 06/11/2025 at 11:48 AM EST. I, Dr. García, have read, observed, and verified documentation. ?? 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 Diabetic neuropathy Anemia Type 2 diabetes mellitus with unspecified complications Atherosclerotic cardiovascular disease Cardiac resynchronization therapy defibrillator (MEMBER SERVICE SPECIALIST-D) in place Surgical History History of colonoscopy H/O endoscopy History of implantable cardioverter-defibrillator (ICD) placement (~02/09/17) History of cardiac catheterization (~08/2015) History of umbilical hernia repair History of appendectomy History of cholecystectomy History of tubal ligation Family History Father Myocardial infarction Mother Uterine cancer Lung cancer Maternal Aunt Uterine cancer Mouth cancer Social History Housing: House Patient Tobacco Use Status: Never used Tobacco e-Cigarette/Vaping Use: Never Used Second Hand Smoke Exposure: No service: No Current occupational status: retired Current occupational exposures/hazards: No Cognitive needs: Yes Hearing needs: No Vision needs: Yes Questionnaire Thrive Questionnaire Date Thrive assessed: 11/13/24 I am a: Patient What is your living situation today?: I have a steady place to live Within the past 12 months, did the food you bought not last and you didn't have the money to get more?: Never true Within the past 12 months, did you worry whether your food would run out before you got money to buy more?: Never true Do you have trouble paying for medicines?: No Do you have trouble getting transportation to medical appointments?: No Do you have trouble paying your heating and electricity bill?: No Do you have trouble taking care of your child, family member or friend?: No Do you have trouble with day-to-day activities such as bathing, preparing meals, shopping, managing finances, etc.?: No Are you currently unemployed and looking for a job?: No Are you interested in more education?: No Please select the resources that you would like help with: None Currently or been in a relationship where the following occur: No concerns reported THRIVE Score: 0 DYLON-7 AMB Questionnaire DYLON-7 Date DYLON - 7 assessed: 11/13/24 Source: Developed by Drs. Wicho Tucker, Sana Mendoza, Ta Moctezuma and colleagues, with an educational thai from [employer]. Review of Systems Const Denies chills, Denies fatigue, Denies fever(s), Denies headache(s) and Denies weakness ENT Denies dizziness and Denies headache(s) Card Denies dyspnea Resp Denies cough, Denies dyspnea, Denies wheezing and Denies other (shortness of breath) Musc Denies numbness and Denies tingling Neuro Denies dizziness, Denies headache(s), Denies numbness, Denies tingling and Denies weakness Psych Denies anxiety and Denies depression Endo Denies fatigue Aller/Immun Denies wheezing Physical exam (Primary Care) Vital Signs: Last Vital Signs Temp 97.7 F 06/11/25 11:37 Pulse 75 06/11/25 11:37 Resp 16 06/11/25 11:37 BP 110/60 06/11/25 11:37 Pulse Ox 95 06/11/25 11:37 Oxygen Delivery Method Room Air 06/11/25 11:37 BMI result Body Mass Index 33.2 Tobacco/Smoking Status: Tobacco use Status Tobacco use date assessed 04/17/25 06/11/25 11:34 Patient Tobacco Use Status Never used Tobacco 06/11/25 11:34 e-Cigarette/Vaping Use Never Used 06/11/25 11:34 Thrive Assessment: Date of Thrive Assessment Date Thrive assessed 11/13/24 06/11/25 11:34 Currently or been in a relationship where the following occur: No concerns reported Const General: well developed; No acute distress Nutritional Appearance: well nourished Orientation/consciousness: patient oriented x3 HENMT Head: Yes normocephalic and Yes atraumatic Eyes General: appearance normal, both eyes and all related structures Pupils: Equal, round and reactive pupils present EOM: EOMs intact bilaterally Resp Effort & Inspection: normal respiratory effort Auscultation: clear to auscultation bilaterally Cardio Rate: regular rate Rhythm: regular rhythm Heart sounds: S1 normal heart sound present, S2 normal heart sound present, no gallops, no murmurs and no rubs Neuro General: patient oriented x3 and gait normal Cranial nerves: Yes Equal, round and reactive pupils present Psych Affect: normal affect Coding Level of Care Code Est Pt Level 4 (84360) Diagnoses Acute kidney injury N17.9 Cardiac resynchronization therapy defibrillator (MEMBER SERVICE SPECIALIST-D) in place Z95.810 Ischemic cardiomyopathy I25.5 CHF (NYHA class III, ACC/AHA stage C) I50.9 Atherosclerotic cardiovascular disease I25.10 Assessment & Plan Assessment & Plan (1) Acute kidney injury: Code(s): N17.9 - Acute kidney failure, unspecified Category: Medical (2) Acute kidney injury: Code(s): N17.9 - Acute kidney failure, unspecified Category: Medical (3) Cardiac resynchronization therapy defibrillator (MEMBER SERVICE SPECIALIST-D) in place: Code(s): Z95.810 - Presence of automatic (implantable) cardiac defibrillator Category: Medical (4) Ischemic cardiomyopathy: Code(s): I25.5 - Ischemic cardiomyopathy Category: Medical (5) CHF (NYHA class III, ACC/AHA stage C): Code(s): I50.9 - Heart failure, unspecified Category: Medical (6) Atherosclerotic cardiovascular disease: Code(s): I25.10 - Atherosclerotic heart disease of [place] coronary artery without angina pectoris Category: Medical Plan Inpatient follow-up 926 through 05/20/2025 for chest pain radiating to left arm and left jaw, unrelieved by nitroglycerin which had work in the past. EKG and troponins negative for ACS. Chest x-ray negative. Cardiac catheterization deemed unnecessary. Stress test performed with no acute ischemia/interval change from her prior in 2022. Hospitalization complicated by LUDY and hypotension - her Imdur, valsartan and torsemide were held initially and then restarted on discharge with instructions to take torsemide as needed. Had follow-up with Cardiology already and they feel that her chest pain is likely secondary to microvascular disease and they plan to titrate up her isosorbide and continue nitroglycerin as needed. Blood pressure today is 110/60 - well controlled. Continue current medications Checking labs to evaluate renal function. She has an upcoming appointment she is bothering her [id number] with Cardiology as recommended She has an upcoming appointment with me next month for follow-up hypertension and diabetes. Orders: Orders Basic Metabolic Panel Today N17.9 - Acute kidney failure, unspecified, Z00.00 - Encounter for general adult medical examination without abnormal findings
[2025-06-11 11:37] VITALS: BP 110/60; PULSE 75; RESP 16; TEMP 36.5; O2SAT 95; BMI 33.2
--- OUTSIDE RECORDS SUMMARY | 2025-06-11 14:07 | XMS_ITS | Clinical Summary ---
Author Organization [facility] Address [address] [place] [phone] Phone Care Team Providers Care Health Support Specialist Name Role Phone Monroe García MD Primary [...] day by oral route. Active Continuous Glucose Occup Ther (TupaloStyle Danica 3 [place]) device As directed for use with sensors [...] Office Visit [facility] [address] [phone] Bereket Olivo MD Other acute kidney failure [...] Office Visit [facility] [address] [phone] Bereket Olivo MD [address] [phone] Health Maintenance Due Date Last Done Comments [...] Creatinine, Ur 60.8 Not Estab. mg/dL [facility] Albumin, Urine 6.3 Not Estab. ug/mL [facility] Albumin/Creatin ine Ratio 10 0 - 29 mg/g creat [facility] Comment: Normal: 0 - 29 Moderately increased: 30 - 300 Severely increased: >300 Urine Urine specimen obtained by clean catch procedure / Unknown 04/16/2025 11:17 AM EDT 04/16/2025 us Bereket Olivo MD LAB URINE ORDERABLES Final Resul t [facility] [place] [address] [place] [phone] * (ABNORMAL) Vit D 25 hydroxy (04/16/2025 11:17 AM EDT) Vitamin D, 25-OH, Total 24.6(L) 30.0 - 100.0 ng/mL [facility] [place] Comment: Vitamin D deficiency has been defined by the [place] and an Endocrine Society practice guideline as a level of serum 25-OH vitamin D less than 20 ng/mL (1,2). The Endocrine Society went on to further define vitamin D insufficiency as a level between 21 and 29 ng/mL (2). 1. IOM ([place]). 2010. Dietary reference intakes for [...] ORDERABLES Final Resul t Performing Organization Address City/[facility]/ZIP Co de Phone Number [employer] [address] [place] [phone] * (ABNORMAL) PTH, intact (04/16/2025 11:17 AM EDT) PTH 72(H) 15 - 65 pg/mL [facility] Blood Venous blood / Unknown 04/16/2025 11:17 AM EDT 04/16/2025 Bereket Olivo MD LAB BLOOD ORDERABLES Final Resul t [facility] [place] [address] [place] [phone] * (ABNORMAL) Renal funtion panel (04/16/2025 11:17 AM EDT) Glucose 285(H) 70 - 99 mg/dL [facility] BUN 27 8 - 27 mg/dL [facility] Creatinine 1.45(H) 0.57 - 1.00 mg/dL [facility] eGFR CKD-EPI CR 2020 38(L) >59 mL/min/1.7 3 [facility] BUN/Creatinine Ratio 19 12 - 28 [facility] Sodium 139 134 - 144 mmol/L [facility] Potassium 5.4(H) 3.5 - 5.2 mmol/L [facility] Chloride 100 96 - 106 mmol/L [facility] Bicarbonate (CO2) 14(L) 20 - 29 mmol/L [facility] Calcium 10.3 8.7 - 10.3 mg/dL [facility] Albumin 4.6 3.8 - 4.8 g/dL [facility] Phosphorus 4.0 3.0 - 4.3 mg/dL [facility] Blood Venous blood / Unknown 04/16/2025 11:17 AM EDT 04/16/2025 us Bereket Olivo MD LAB BLOOD ORDERABLES Final Resul t [facility] [address] [place] [address] * Renal Function Panel (External Lab) (03/18/2025) Glucose 154 mg/dL BUN 24 mg/dL eGFR 39 Sodium 140 mEq/L Potassium 4.9 mEq/L Chloride 102 Carbon Dioxide 22 mmol/L Calcium 9.9 mg/dL Creatinine 1.41 mg/dL Anion Gap 16 Blood 03/18/2025 us Historical Provider LAB BLOOD ORDERABLES Kera l Result from Last 3 Months Insurance [facility] ([id number]) [place] [phone] Care Teams Health Support Specialist Relationship Specialty Start Date End Date Monroe García MD [address] [phone] PCP - General Family Medicine 04/11/25
--- OUTSIDE RECORDS SUMMARY | 2025-06-11 14:07 | XMS_ITS | Encounter Summary ---
Author Organization [facility], Address [address] [place] [address] Phone Care Team Providers Care Eight Section Blower Name Role Phone Monroe García MD Primary Care Provider [phone] Reason for Visit * Reason Comments Med Refill Encounter Details Date Type Department Care Team (Late st Contact Info) Description 09/22/2021 Refill [facility] [address] [place] [phone] Kenna Plummer MD Social History Tobacco Use [...] Visit [facility] [address] [place] [phone] Bereket Olivo MD [address] [phone] documented as of this encounter Visit Diagnoses Not on filedocumented in this encounter Care Teams Eight Section Blower Relationship Specialty Start Date End Date Monroe García MD 10 [facility] [address] [place] [phone] PCP - General Family Medicine 04/11/25 documented as of this encounter
--- OUTSIDE RECORDS SUMMARY | 2025-07-02 20:00 | XMS_ITS | Clinical Summary ---
Author Organization Unknown Care Team Providers Care Legal Examiner Name Role Phone LATOYA MARTINEZ, SYLVAIN Unavailable Unavailable REY GRANT, WELLINGTON Unavailable Unavailable JOSUE RN, INGE Unavailable Unavailable Payers Payer Name Policy Type Policy Number Effective Date Expira tion Date [facility] [place] [id number] [place] [id number] ON DEMAND MEDICARE - [place] BILLING - [place] [id number] Problems Condition Name Condition Details Condition Category [...] 01-01 00:00: 00 ATHSCL HEART DISEASE OF [place] CORONARY ARTERY W/O ANG PCTRS Active 01-01 [...] 2020-08 00:00: 00 09-05 23:59 :00 No [id number] Per instruc tions TWO (2) TIMES A DAY TO 3 (THREE) TIMES A DAY Per instructio ns TWO (2) TIMES A DAY TO 3 (THREE) TIMES A DAY (route: topical) Med Classific ation: Antisepti cs and Disinfect ants Eliquis 5 mg tablet 03-11 00:00: 00 01-01 23:59 :00 No [id number] 1 tablet TWO (2) TIMES A DAY 1 tablet TWO (2) TIMES A DAY (route: oral) Med Classific ation: Hematolog ical Agents ferrous sulfate 324 mg (65 mg iron) tablet,jessica yed release 2020-08 00:00: 00 03-11 23:59 :00 No [id number] Per instruc tions DAILY Per instructio ns DAILY (route: oral) Med Classific ation: Electroly te Balance-N utritiona l Products gabapentin 400 mg capsule 2020-08 00:00: 00 03-11 23:59 :00 No [id number] Per instruc tions 3 (THREE) TIMES A DAY Per instructio ns 3 (THREE) TIMES A DAY (route: oral) Med Classific ation: Central Nervous System Agents metoprolol succinate ER 25 mg tablet,exte nded release 24 hr 2020-08 00:00: 00 03-11 23:59 :00 No [id number] Per instruc tions DAILY Per instructio ns DAILY (route: oral) Med Classific ation: Cardiovas cular Therapy Agents magnesium oxide 400 mg (241.3 mg magnesium) tablet 2020-08 00:00: 00 03-11 23:59 :00 No [id number] Per instruc tions DAILY Per instructio ns DAILY (route: oral) Med Classific ation: Electroly te Balance-N utritiona l Products atorvastati n 40 mg tablet 2020-08 00:00: 00 03-11 23:59 :00 No [id number] Per instruc tions DAILY Per instructio ns DAILY (route: oral) Med Classific ation: Cardiovas cular Therapy Agents isosorbide dinitrate 30 mg tablet 2020-08 00:00: 00 03-11 23:59 :00 No [id number] Per instruc tions TWO (2) TIMES A DAY Per instructio ns TWO (2) TIMES A DAY (route: oral) Med Classific ation: Cardiovas cular Therapy Agents clopidogrel 75 mg tablet 03-11 00:00: 00 01-01 23:59 :00 No [id number] 1 tablet DAILY 1 tablet DAILY (route: oral) Med Classific ation: Hematolog ical Agents torsemide 20 mg tablet 2020-08 00:00: 00 03-11 23:59 :00 No [id number] Per instruc tions DAILY Per instructio ns DAILY (route: oral) Med Classific ation: Cardiovas cular Therapy Agents pantoprazol e 20 mg tablet,jessica yed release 2020-08 00:00: 00 03-11 23:59 :00 No [id number] Per instruc tions DAILY Per instructio ns DAILY (route: oral) Med Classific ation: Gastroint estinal Therapy Agents Lantus Solostar U-100 Insulin 100 unit/mL (3 mL) subcutaneou s pen 2020-08 0 00:00: 00 03-11 23:59 :00 No [id number] Per instruc tions DAILY Per instructio ns DAILY (route: subcutaneo us) Med Classific ation: Endocrine acetaminoph en 325 mg tablet 03-11 00:00: 00 01-01 23:59 :00 No [id number] 2 tablet 3 TIMES DAILY 2 tablet 3 TIMES DAILY (route: oral) Med Classific ation: Analgesic , Anti-infl ammatory or Antipyret ic atorvastati n 80 mg tablet 03-11 00:00: 00 01-01 23:59 :00 No [id number] 1 tablet BEDTIME 1 tablet BEDTIME (route: oral) Med Classific ation: Cardiovas cular Therapy Agents duloxetine 20 mg capsule,del ayed release 03-11 00:00: 00 01-01 23:59 :00 No [id number] 2 capsule DAILY 2 capsule DAILY (route: oral) Med Classific ation: Central Nervous System Agents ferrous sulfate 325 mg (65 mg iron) tablet 03-11 00:00: 00 01-01 23:59 :00 No [id number] 1 tablet DAILY 1 tablet DAILY (route: oral) Med Classific ation: Electroly te Balance-N utritiona l Products furosemide 20 mg tablet 03-11 00:00: 00 04-19 23:59 :00 No [id number] 1 tablet DAILY 1 tablet DAILY (route: oral) Med Classific ation: Cardiovas cular Therapy Agents gabapentin 100 mg capsule 03-11 00:00: 00 01-01 23:59 :00 No [id number] 2 capsule 3 TIMES DAILY 2 capsule 3 TIMES DAILY (route: oral) Med Classific ation: Central Nervous System Agents Lantus Solostar U-100 Insulin 100 unit/mL (3 mL) subcutaneou s pen 03-11 00:00: 00 01-01 23:59 :00 No [id number] 20 unit BEDTIME 20 unit BEDTIME (route: subcutaneo ) Med Classific ation: Endocrine melatonin 5 mg capsule 03-11 00:00: 00 01-01 23:59 :00 No [id number] 1 capsule DAILY 1 capsule DAILY (route: oral) Med Classific ation: Central Nervous System Agents metoprolol succinate ER 50 mg tablet,exte nded release 24 hr 03-11 00:00: 00 01-01 23:59 :00 No [id number] 1 tablet DAILY 1 tablet DAILY (route: oral) Med Classific ation: Cardiovas cular Therapy Agents mirtazapine 15 mg disintegrat ing tablet 03-11 00:00: 00 01-01 23:59 :00 No [id number] 1 tablet BEDTIME 1 tablet BEDTIME (route: oral) Med Classific ation: Central Nervous System Agents multivitami n tablet 03-11 00:00: 00 01-01 23:59 :00 No [id number] 1 tablet DAILY 1 tablet DAILY (route: oral) Med Classific ation: Electroly te Balance-N utritiona l Products Nitrostat 0.4 mg sublingual tablet 03-11 00:00: 00 01-01 23:59 :00 No [id number] 1 tablet NEEDED 1 tablet NEEDED (route: sublingual ) Med Classific ation: Cardiovas cular Therapy Agents pantoprazol e 40 mg tablet,jessica yed release 03-11 00:00: 00 01-01 23:59 :00 No [id number] 1 tablet DAILY 1 tablet DAILY (route: oral) Med Classific ation: Gastroint estinal Therapy Agents quetiapine 200 mg tablet 03-11 00:00: 00 11-02 23:59 :00 No [id number] 1 tablet BEDTIME 1 tablet BEDTIME (route: oral) Med Classific ation: Central Nervous System Agents Senna Laxative 8.6 mg tablet 03-11 00:00: 00 01-01 23:59 :00 No [id number] 2 tablet DAILY 2 tablet DAILY (route: oral) Med Classific ation: Gastroint estinal Therapy Agents valsartan 40 mg tablet 03-11 00:00: 00 01-01 23:59 :00 No [id number] 1 tablet DAILY 1 tablet DAILY (route: oral) Med Classific ation: Cardiovas cular Therapy Agents Lasix 40 mg tablet 04-19 00:00: 00 05-09 23:59 :00 No [id number] 1 tablet DAILY 1 tablet DAILY (route: oral) Med Classific ation: Cardiovas cular Therapy Agents Lasix 20 mg tablet - 00:00: 00 11-02 23:59 :00 No [id number] 1 tablet DAILY 1 tablet DAILY (route: oral) Med Classific ation: Cardiovas cular Therapy Agents Seroquel 100 mg tablet 05-10 00:00: 00 11-02 23:59 :00 No [id number] 1 tablet BEDTIME 1 tablet BEDTIME (route: oral) Med Classific ation: Central Nervous System Agents Jardiance 10 mg tablet 2022-0818 00:00: 00 01-01 23:59 :00 No [id number] 1 tablet DAILY 1 tablet DAILY (route: oral) Med Classific ation: Endocrine Seroquel 100 mg tablet 11-05 00:00: 00 01-01 23:59 :00 No [id number] 3 tablet BEDTIME 3 tablet BEDTIME (route: oral) Med Classific ation: Central Nervous System Agents torsemide 20 mg tablet 11-05 00:00: 00 01-01 23:59 :00 No [id number] 1 tablet DAILY 1 tablet DAILY (route: oral) Med Classific ation: Cardiovas cular Therapy Agents isosorbide mononitrate ER 60 mg tablet,exte nded release 24 hr 2023-08 00:00: 00 01-01 23:59 :00 No [id number] 1 tablet DAILY 1 tablet DAILY (route: oral) Med Classific ation: Cardiovas cular Therapy Agents acetaminoph en 325 mg capsule 01-05 00:00: 00 05-21 23:59 :00 No [id number] 3 capsule 3 TIMES DAILY 3 capsule 3 TIMES DAILY (route: oral) Med Classific ation: Analgesic , Anti-infl ammatory or Antipyret ic atorvastati n 80 mg tablet 01-05 00:00: 00 05-21 23:59 :00 No [id number] 1 tablet EVERY AM 1 tablet EVERY AM (route: oral) Med Classific ation: Cardiovas cular Therapy Agents carbidopa 25 mg-levodopa 100 mg tablet 01-05 00:00: 00 05-27 23:59 :00 No [id number] 1 tablet 2 TIMES DAILY 1 tablet 2 TIMES DAILY (route: oral) Med Classific ation: Central Nervous System Agents clopidogrel 75 mg tablet 01-05 00:00: 00 05-27 23:59 :00 No [id number] 1 tablet EVERY AM 1 tablet EVERY AM (route: oral) Med Classific ation: Hematolog ical Agents duloxetine 20 mg capsule,del ayed release 01-05 00:00: 00 05-27 23:59 :00 No [id number] 2 capsule EVERY AM 2 capsule EVERY AM (route: oral) Med Classific ation: Central Nervous System Agents Eliquis 5 mg tablet 01-05 00:00: 00 05-27 23:59 :00 No [id number] 1 tablet 2 TIMES DAILY 1 tablet 2 TIMES DAILY (route: oral) Med Classific ation: Hematolog ical Agents ferrous sulfate 325 mg (65 mg iron) tablet 01-05 00:00: 00 05-27 23:59 :00 No [id number] 1 tablet EVERY AM 1 tablet EVERY AM (route: oral) Med Classific ation: Electroly te Balance-N utritiona l Products gabapentin 100 mg capsule 01-05 00:00: 00 05-27 23:59 :00 No [id number] 2 capsule 3 TIMES DAILY 2 capsule 3 TIMES DAILY (route: oral) Med Classific ation: Central Nervous System Agents Humalog KwikPen (U-100) Insulin 100 unit/mL subcutaneou s 01-05 00:00: 00 05-27 23:59 :00 No [id number] Per instruc tions 3 TIMES DAILY Per instructio ns 3 TIMES DAILY (route: subcutaneo us) Med Classific ation: Endocrine Jardiance 10 mg tablet 01-05 00:00: 00 05-27 23:59 :00 No [id number] 1 tablet EVERY AM 1 tablet EVERY AM (route: oral) Med Classific ation: Endocrine melatonin 5 mg capsule 01-05 00:00: 00 05-27 23:59 :00 No [id number] 1 capsule BEDTIME 1 capsule BEDTIME (route: oral) Med Classific ation: Central Nervous System Agents metoprolol succinate ER 25 mg tablet,exte nded release 24 hr 01-05 00:00: 00 05-21 23:59 :00 No [id number] 1 tablet EVERY AM 1 tablet EVERY AM (route: oral) Med Classific ation: Cardiovas cular Therapy Agents Miralax 17 gram oral powder packet 01-05 00:00: 00 05-27 23:59 :00 No [id number] 1 packet EVERY AM 1 packet EVERY AM (route: oral) Med Classific ation: Gastroint estinal Therapy Agents mirtazapine 15 mg tablet 01-05 00:00: 00 05-27 23:59 :00 No [id number] 1 tablet EVERY AM 1 tablet EVERY AM (route: oral) Med Classific ation: Central Nervous System Agents Multiple Vitamins tablet 01-05 00:00: 00 Yes [id number] 1 tablet EVERY AM 1 tablet EVERY AM (route: oral) Med Classific ation: Electroly te Balance-N utritiona l Products omeprazole 20 mg capsule,del ayed release 01-05 00:00: 00 05-27 23:59 :00 No [id number] 2 capsule EVERY AM 2 capsule EVERY AM (route: oral) Med Classific ation: Gastroint estinal Therapy Agents quetiapine 100 mg tablet 01-05 00:00: 00 05-27 23:59 :00 No [id number] 2 tablet BEDTIME 2 tablet BEDTIME (route: oral) Med Classific ation: Central Nervous System Agents Semglee (insulin glargine-yf gn) 100 unit/mL subcutaneou s solution 01-05 00:00: 00 05-27 23:59 :00 No [id number] 65 unit BEDTIME 65 unit BEDTIME (route: subcutaneo ) Med Classific ation: Endocrine torsemide 20 mg tablet 01-05 00:00: 00 05-21 23:59 :00 No [id number] 1 tablet EVERY AM 1 tablet EVERY AM (route: oral) Med Classific ation: Cardiovas cular Therapy Agents valsartan 40 mg tablet 01-05 00:00: 00 05-27 23:59 :00 No [id number] 1 tablet EVERY AM 1 tablet EVERY AM (route: oral) Med Classific ation: Cardiovas cular Therapy Agents metoprolol succinate ER 50 mg tablet,exte nded release 24 hr 05-21 00:00: 00 05-27 23:59 :00 No [id number] 1 tablet EVERY AM 1 tablet EVERY AM (route: oral) Med Classific ation: Cardiovas cular Therapy Agents torsemide 20 mg tablet 05-21 00:00: 00 05-27 23:59 :00 No [id number] 1.5 tablet NEEDED 1.5 tablet NEEDED (route: oral) Med Classific ation: Cardiovas cular Therapy Agents acetaminoph en 325 mg tablet 05-21 00:00: 00 05-27 23:59 :00 No [id number] 2 tablet NEEDED 2 tablet NEEDED (route: oral) Med Classific ation: Analgesic , Anti-infl ammatory or Antipyret ic atorvastati n 80 mg tablet 05-21 00:00: 00 Yes [id number] 1 tablet EVERY PM 1 tablet EVERY PM (route: oral) Med Classific ation: Cardiovas cular Therapy Agents carbidopa 25 mg-levodopa 100 mg tablet 05-21 00:00: 00 Yes [id number] 1 tablet 2 TIMES DAILY 1 tablet 2 TIMES DAILY (route: oral) Med Classific ation: Central Nervous System Agents clopidogrel 75 mg tablet 05-21 00:00: 00 Yes [id number] 1 tablet EVERY AM 1 tablet EVERY AM (route: oral) Med Classific ation: Hematolog ical Agents duloxetine 20 mg capsule,del ayed release 05-21 00:00: 00 Yes [id number] 2 capsule EVERY AM 2 capsule EVERY AM (route: oral) Med Classific ation: Central Nervous System Agents Eliquis 5 mg tablet 05-21 00:00: 00 05-27 23:59 :00 No [id number] 1 tablet EVERY PM 1 tablet EVERY PM (route: oral) Med Classific ation: Hematolog ical Agents Eliquis 5 mg tablet 05-21 00:00: 00 Yes [id number] 1 tablet 2 TIMES DAILY 1 tablet 2 TIMES DAILY (route: oral) Med Classific ation: Hematolog ical Agents ferrous sulfate 325 mg (65 mg iron) tablet 05-21 00:00: 00 Yes [id number] 1 tablet EVERY AM 1 tablet EVERY AM (route: oral) Med Classific ation: Electroly te Balance-N utritiona l Products gabapentin 100 mg capsule 05-21 00:00: 00 Yes [id number] 2 capsule 3 TIMES DAILY 2 capsule 3 TIMES DAILY (route: oral) Med Classific ation: Central Nervous System Agents Humalog KwikPen (U-100) Insulin 100 unit/mL subcutaneou s 05-21 00:00: 00 Yes [id number] Per instruc tions EVERY AM Per instructio ns EVERY AM (route: subcutaneo us) Med Classific ation: Endocrine Jardiance 10 mg tablet 05-21 00:00: 00 Yes [id number] 1 tablet EVERY AM 1 tablet EVERY AM (route: oral) Med Classific ation: Endocrine melatonin 5 mg capsule 05-21 00:00: 00 Yes [id number] 1 capsule EVERY PM 1 capsule EVERY PM (route: oral) Med Classific ation: Central Nervous System Agents metoprolol succinate ER 50 mg tablet,exte nded release 24 hr 05-21 00:00: 00 Yes [id number] 1 tablet EVERY AM 1 tablet EVERY AM (route: oral) Med Classific ation: Cardiovas cular Therapy Agents Miralax 17 gram oral powder packet 05-21 00:00: 00 Yes [id number] 1 packet EVERY PM 1 packet EVERY PM (route: oral) Med Classific ation: Gastroint estinal Therapy Agents mirtazapine 15 mg tablet 05-21 00:00: 00 Yes [id number] 1 tablet EVERY PM 1 tablet EVERY PM (route: oral) Med Classific ation: Central Nervous System Agents Multiple Vitamins tablet 05-21 00:00: 00 Yes [id number] 1 tablet EVERY AM 1 tablet EVERY AM (route: oral) Med Classific ation: Electroly te Balance-N utritiona l Products omeprazole 20 mg capsule,del ayed release 05-21 00:00: 00 Yes [id number] 2 capsule EVERY AM 2 capsule EVERY AM (route: oral) Med Classific ation: Gastroint estinal Therapy Agents quetiapine 100 mg tablet 05-21 00:00: 00 Yes [id number] 3 tablet EVERY PM 3 tablet EVERY PM (route: oral) Med Classific ation: Central Nervous System Agents Semglee (insulin glargine-yf gn) 100 unit/mL subcutaneou s solution 05-21 00:00: 00 Yes [id number] 64 unit EVERY PM 64 unit EVERY PM (route: subcutaneo us) Med Classific ation: Endocrine torsemide 20 mg tablet 05-21 00:00: 00 Yes [id number] 1.5 tablet NEEDED 1.5 tablet NEEDED (route: oral) Med Classific ation: Cardiovas cular Therapy Agents valsartan 40 mg tablet 05-21 00:00: 00 Yes [id number] 1 tablet EVERY AM 1 tablet EVERY AM (route: oral) Med Classific ation: Cardiovas cular Therapy Agents Vital Signs Vital Name Observation Time Observation Value Commen ts Temperature 2025-06-10 08:37:00.000 97.6 [degF] Temperature 2025-06-07 08:36:00.000 97.4 [degF] Temperature 2025-06-05 08:47:00.000 97.9 [degF] Temperature 2025-06-03 08:44:00.000 97.9 [degF] Temperature 2025-05-31 09:02:00.000 97.8 [degF] Temperature 2025-05-29 09:05:00.000 97.9 [degF] Temperature 2025-05-27 10:24:00.000 97.9 [degF] Temperature 2025-05-25 21:57:00.000 97.5 [degF] Temperature 2025-05-21 11:07:00.000 97.6 [degF] Temperature 2025-05-15 09:19:00.000 97.9 [degF] Temperature 2025-05-13 09:29:00.000 97.6 [degF] Temperature 2025-05-10 08:49:00.000 97.9 [degF] Temperature 2025-05-08 08:50:00.000 97.9 [degF] Temperature 2025-05-06 09:40:00.000 97.9 [degF] BMI (%) 2025-05-21 11:07:00.000 38 kg/m2 Height 2025-05-21 11:07:00.000 63 [in_us] Pulse 2025-06-10 08:37:00.000 75 /min Pulse 2025-06-07 08:36:00.000 77 /min Pulse 2025-06-05 08:47:00.000 77 /min Pulse 2025-06-03 08:44:00.000 71 /min Pulse 2025-05-31 09:02:00.000 78 /min Pulse 2025-05-29 09:05:00.000 77 /min Pulse 2025-05-27 10:24:00.000 76 /min Pulse 2025-05-25 21:57:00.000 74 /min Pulse 2025-05-21 11:07:00.000 68 /min Pulse 2025-05-15 09:19:00.000 75 /min Pulse 2025-05-13 09:29:00.000 78 /min Pulse 2025-05-10 08:49:00.000 78 /min Pulse 2025-05-08 08:50:00.000 76 /min Pulse 2025-05-06 09:40:00.000 75 /min O2 Saturation (%) 2025-06-10 08:37:00.000 97 % O2 Saturation (%) 2025-06-07 08:37:00.000 96 % O2 Saturation (%) 2025-06-05 08:47:00.000 98 % O2 Saturation (%) 2025-06-03 16:28:00.000 96 % O2 Saturation (%) 2025-05-31 09:03:00.000 97 % O2 Saturation (%) 2025-05-29 09:07:00.000 97 % O2 Saturation (%) 2025-05-27 10:25:00.000 97 % O2 Saturation (%) 2025-05-25 21:57:00.000 97 % O2 Saturation (%) 2025-05-21 11:09:00.000 97 % O2 Saturation (%) 2025-05-15 09:20:00.000 97 % O2 Saturation (%) 2025-05-13 09:29:00.000 98 % O2 Saturation (%) 2025-05-10 08:49:00.000 98 % O2 Saturation (%) 2025-05-08 08:51:00.000 97 % O2 Saturation (%) 2025-05-06 09:41:00.000 97 % Respirations 2025-06-10 08:37:00.000 20 /min Respirations 2025-06-07 08:36:00.000 20 /min Respirations 2025-06-05 08:47:00.000 20 /min Respirations 2025-06-03 08:44:00.000 18 /min Respirations 2025-05-31 09:02:00.000 20 /min Respirations 2025-05-29 09:05:00.000 18 /min Respirations 2025-05-27 10:24:00.000 20 /min Respirations 2025-05-25 21:57:00.000 20 /min Respirations 2025-05-21 11:07:00.000 20 /min Respirations 2025-05-15 09:19:00.000 20 /min Respirations 2025-05-13 09:29:00.000 18 /min Respirations 2025-05-10 08:49:00.000 18 /min Respirations 2025-05-08 08:50:00.000 20 /min Respirations 2025-05-06 09:40:00.000 18 /min Weight (lbs) 2025-06-10 08:37:00.000 217 [lb_av] Weight (lbs) 2025-06-07 08:37:00.000 215 [lb_av] Weight (lbs) 2025-06-05 08:47:00.000 215 [lb_av] Weight (lbs) 2025-06-03 16:28:00.000 218 [lb_av] Weight (lbs) 2025-05-31 09:03:00.000 216 [lb_av] Weight (lbs) 2025-05-29 09:07:00.000 215 [lb_av] Weight (lbs) 2025-05-27 10:25:00.000 215 [lb_av] Weight (lbs) 2025-05-25 21:57:00.000 214 [lb_av] Weight (lbs) 2025-05-21 11:07:00.000 215 [lb_av] Weight (lbs) 2025-05-15 09:20:00.000 214 [lb_av] Weight (lbs) 2025-05-13 09:29:00.000 215 [lb_av] Weight (lbs) 2025-05-10 08:49:00.000 216 [lb_av] Weight (lbs) 2025-05-08 08:51:00.000 216 [lb_av] Weight (lbs) 2025-05-06 09:41:00.000 215 [lb_av] Systolic Blood Pressure 2025-06-10 08:37:00.000 132 mm [Hg] Systolic Blood Pressure 2025-06-07 08:36:00.000 128 mm [Hg] Systolic Blood Pressure 2025-06-05 08:47:00.000 125 mm [Hg] Systolic Blood Pressure 2025-06-03 16:27:00.000 138 mm [Hg] Systolic Blood Pressure 2025-05-31 09:02:00.000 117 mm [Hg] Systolic Blood Pressure 2025-05-29 09:05:00.000 117 mm [Hg] Systolic Blood Pressure 2025-05-27 10:24:00.000 113 mm [Hg] Systolic Blood Pressure 2025-05-25 21:57:00.000 113 mm [Hg] Systolic Blood Pressure 2025-05-21 11:07:00.000 105 mm [Hg] Systolic Blood Pressure 2025-05-15 09:19:00.000 122 mm [Hg] Systolic Blood Pressure 2025-05-13 09:29:00.000 127 mm [Hg] Systolic Blood Pressure 2025-05-10 08:49:00.000 117 mm [Hg] Systolic Blood Pressure 2025-05-08 08:50:00.000 124 mm [Hg] Systolic Blood Pressure 2025-05-06 09:40:00.000 116 mm [Hg] Diastolic Blood Pressure 2025-06-10 08:37:00.000 81 mm [Hg] Diastolic Blood Pressure 2025-06-07 08:36:00.000 78 mm [Hg] Diastolic Blood Pressure 2025-06-05 08:47:00.000 74 mm [Hg] Diastolic Blood Pressure 2025-06-03 16:27:00.000 82 mm [Hg] Diastolic Blood Pressure 2025-05-31 09:02:00.000 69 mm [Hg] Diastolic Blood Pressure 2025-05-29 09:05:00.000 87 mm [Hg] Diastolic Blood Pressure 2025-05-27 10:24:00.000 68 mm [Hg] Diastolic Blood Pressure 2025-05-25 21:57:00.000 67 mm [Hg] Diastolic Blood Pressure 2025-05-21 11:07:00.000 68 mm [Hg] Diastolic Blood Pressure 2025-05-15 09:19:00.000 68 mm [Hg] Diastolic Blood Pressure 2025-05-13 09:29:00.000 74 mm [Hg] Diastolic Blood Pressure 2025-05-10 08:49:00.000 68 mm [Hg] Diastolic Blood Pressure 2025-05-08 08:50:00.000 76 mm [Hg] Diastolic Blood Pressure 2025-05-06 09:40:00.000 71 mm [Hg] Plan of Treatment Planned Activity [...] AWARENESS FOR SAFETY AND WILL NOTIFY CLINICAL SEALER SANDER AND PHYSICIAN/PROVIDER WITH ANY CHANGE IN CONDITION. [code = SKILLED NURSE WILL MAINTAIN SITUATIONAL AWARENESS FOR SAFETY AND WILL NOTIFY CLINICAL SEALER SANDER AND PHYSICIAN/PROVIDER WITH ANY CHANGE IN CONDITION.] Future Scheduled Test SKILLED NU RSE TO ADMINISTER MEDICATIONS AND PRE-POUR MEDICATIONS PER MEDICATION LIST. [code = SKILLED NURSE TO ADMINISTER MEDICATIONS AND PRE-POUR MEDICATIONS PER MEDICATION LIST.] Future Scheduled Test PATIENT MA Y HAVE ONE SET OF EMERGENCY MEDICATION NOT TO BE PRE-POURED ANY SOONER THAN 24 HOURS BEFORE SEVERE INCLEMENT WEATHER OR EMERGENT EVENT AND FOLLOWING SKILLED NURSE EVALUATION OF PATIENT SAFETY. [code = PATIENT MAY HAVE ONE SET OF EMERGENCY MEDICATION NOT TO BE PRE-POURED ANY SOONER THAN 24 HOURS BEFORE SEVERE INCLEMENT WEATHER OR EMERGENT EVENT AND FOLLOWING SKILLED NURSE EVALUATION OF PATIENT SAFETY.] Future Scheduled Test SKILLED NU RSE FOR [...] Test SKILLED NU RSE FOR O/A OF ALTERED MOOD [code = SKILLED NURSE FOR O/A OF ALTERED MOOD] Future Scheduled Test SKILLED NU RSE FOR [...] PATIENT, SKILLED NURSE TO OBTAIN MEASUREMENT OF I N CM AT EACH VISIT AND REPORT AN [...] PATIENT, SKILLED NURSE TO OBTAIN MEASUREMENT OF I N CM AT EACH VISIT AND REPORT AN INCREASE OF 1 CM TO PHYSICIAN.] Future Scheduled Test SKILLED NU RSE TO OBTAIN BLOOD SUGAR PRN FOR SIGNS AND SYMPTOMS OF HYPO/HYPERGLYCEMIA. IF OBTAINED BY PATIENT/CAREGIVER PRIOR TO VISIT AND PATIENT IS NOT SYMPTOMATIC, SKILLED NURSE TO RECORD READING FROM PATIENT LOG. [code = SKILLED NURSE TO OBTAIN BLOOD SUGAR PRN FOR SIGNS AND SYMPTOMS OF HYPO/HYPERGLYCEMIA. IF OBTAINED BY PATIENT/CAREGIVER PRIOR TO VISIT AND PATIENT IS NOT SYMPTOMATIC, SKILLED NURSE TO RECORD READING FROM PATIENT LOG.] Future Scheduled Test SKILLED NU RSE TO PROVIDE TEACHING ON SIGNS AND SYMPTOMS AND MANAGEMENT OF HYPERTENSION. [code = SKILLED NURSE TO PROVIDE TEACHING ON SIGNS AND SYMPTOMS AND MANAGEMENT OF HYPERTENSION.] Goal 2025-05-01 Patient Goal - P ATIENT VERBALIZED GOAL OF IMPROVING MEDICATION MANAGEMENT AND GET STRONGER Goal 2025-03-01 Patient Goal - P ATIENT VERBALIZED GOAL OF IMPROVING MEDICATION MANAGEMENT AND GET STRONGER Goal Patient Goal - P ATIENT VERBALIZED GOAL OF IMPROVING MEDICATION MANAGEMENT AND GET STRONGER Goal Provider Goal - A PLAN OF CARE WILL BE ESTABLISHED THAT MEETS PATIENT'S ALF NEEDS AND INCLUDES PATIENT GOAL FOR HOME [...] THROUGHOUT CERTIFICATION PERIOD. Goal Provider Goal - MEDICATION WILL BE AVAILABLE DURING INCLEMENT WEATHER OR EMERGENT EVENT THROUGHOUT CERTIFICATION PERIOD. Goal Provider Goal - PATIENT WILL REMAIN SAFE WITHOUT DECOMPENSATION IN DEPRESSIVE CONDITION, WHILE MAINTAINING OPTIMAL LEVEL OF MENTAL HEALTH AND WELL BEING THROUGHOUT CERTIFICATION PERIOD. Goal Provider Goal - PATIENT WILL BE ABLE TO PERFORM DAILY FUNCTIONS AND HAVE OPTIMAL IMPROVEMENT IN MOOD STABILITY THROUGHOUT CERTIFICATION PERIOD. Goal Provider Goal - PATIENT WILL DEMONSTRATE AN INCREASED INTEREST IN SOCIALIZATION AND ACTIVITIES BY THE END OF THE CERTIFICATION PERIOD. Goal Provider Goal - PATIENT/CAREGIVER WILL VERBALIZE/DEMONSTRATE KNOWLEDGE AND MANAGEMENT OF HEART FAILURE DISEASE PROCESS BY END OF EPISODE. Goal Provider Goal - BLOOD SUGAR READING WILL BE OBTAINED ORDERED THROUGHOUT CERTIFICATION PERIOD. Goal Provider Goal - PATIENT/CAREGIVER WILL VERBALIZE SIGNS AND SYMPTOMS OF HYPERTENSION AND WILL BE ABLE TO DEMONSTRATE ABILITY TO MANAGE EXACERBATION BY END OF THE EPISODE. 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 [id number] 41.18
== END 2025-06-11 14:45 | disposition home or self-care (01) ==
LOC: HO.HMCFM 11:06
PROVIDERS: PCP Family Medicine; Visit Provider Family Medicine
DX: N17.9 Acute kidney failure, unspecified (principal); Z95.810 Presence of automatic (implantable) cardiac defibrillator; I25.5 Ischemic cardiomyopathy; I50.9 Heart failure, unspecified; I25.10 Atherosclerotic heart disease of native coronary artery without angina pectoris

== ENCOUNTER → 2025-06-11 11:05 | Outpatient (BNVA) | payer OTHER, SELFPAY | PROVIDERS: PCP Family Medicine; Visit Provider Family Medicine | DX: N17.9 Acute kidney failure, unspecified (principal); I25.5 Ischemic cardiomyopathy; I50.9 Heart failure, unspecified; I25.10 Atherosclerotic heart disease of native coronary artery without angina pectoris; Z95.810 Presence of automatic (implantable) cardiac defibrillator | CPT/HCPCS: 99212 ==

== ENCOUNTER 2025-06-14 11:46 | Outpatient (REF) | payer OTHER, SELFPAY ==
--- OUTSIDE RECORDS SUMMARY | 2025-06-14 14:07 | XMS_ITS | Data Portability ---
Author Organization [place] - [facility] [place] Address [address] [place] [address] Assessment No assessment recorded. Plan of Treatment Reminders Order Date Submit Date Provider Last Modified By Organization Details Last Modified Time Details Appointments None recorded. Lab colon cancer screening, stool 2018 019 [email or web address] [facility], [address], [place], [address], 9 14:04:[address] referral - hx NSTEMI, has pacemaker -[facility] (Patient wants to be seen in [place]) 2018 019 [email or web address] [facility], [address] [place], [address], 9 08:13:24 Procedures venipunctu re routine (PROC) 2018 019 [email or web address] Not available 9 07:25:47 Surgeries None recorded. Imaging MAMMO, screening, digital, bilateral 2018 019 [email or web address] [facility] Mammogram, [address] [place], [address], 9 14:53:53 Medication Orders torsemide 5 mg tablet 2018 019 [email or web address] 5 [facility] 1974[address] [place], [address], 9 16:51:42 ferrous sulfate 325 mg (65 mg iron) tablet 2018 019 [facility] 1974[address] [place], [address], 9 12:39:12 Lantus Solostar U-100 Insulin 100 unit/mL (3 mL) [facility] 2018 [facility] 1974[address] [place], [address], 9 12:39:10 Novolog FlexPen U-100 Insulin aspart 100 unit/mL (3 mL) [facility] 2018 019 [facility] 1974, [address] [place], [address], 9 12:39:12 torsemide 20 mg tablet [address] [place], [address], 9 09:35:32 mirtazapin e 15 mg disintegra ting tablet 2018 [facility] 1974, [address] [place], [address], 9 12:39:12 gabapentin 400 mg capsule 2018 [facility] 1974, [address] [place], [address], 9 12:39:09 Eliquis 5 mg tablet 2018 [facility] 1974, [address] [place], [address], 9 12:57:12 omeprazole 20 mg capsule,de layed release 2018 [facility] 1974, [address] [place], [address], 9 12:39:09 quetiapine 300 mg tablet 2018 019 INTERFACE [facility] 1974, [address] [place], [address], 9 12:39:10 citalopram 20 mg tablet 2018 INTERFACE [facility] 1974[address] [place], [address], 9 12:39:11 atorvastat in 40 mg tablet 2018 [email or web address] [facility] 1974[address] [place], [address], 9 18:15:56 Patient TargetsNo targets recorded. Patient Instructions Encounter Date Encounter Id Patient Instructions Last Modified By Organization Details Last Modified Time 01/12/2019 [id number] It was nice meeting you! Labs look [...] concerns! [email or web address] Not available 01/12/2019 15:25:48 01/24/2019 [id number] -Hold the torsemide -Come back and see me Tuesday morning. -We will likely get you on a 24 hour blood pressure monitor when we see you Tuesday. Not available 01/25/2019 15:16:04 01/26/2019 [id number] -Let's restart the torsemide at a low dose. We need to balance your BP and the edema. -BP recheck on Tuesday -We will likely schedule you for a continuous BP monitor next week. -ER if you experience dizziness or SOB. -Call us if you have any questions. Not available 01/26/2019 09:38:26 01/31/2019 [id number] -Continue on current dose of torsemide -Drink plenty of water. -Change position slowly Not available 01/31/2019 16:30:55 Reason for Referral [employer] Referral for Co ronary arteriosclerosis hx NSTEMI, has pacemaker -[facility] (Patient wants to be seen in [place]) Referring Physician: Jennifer Lagos, Family Medicine, Encounter [...] if clini brinda indic ated. Test Type: [place] site algor ithmi c cheryl sis of [...] years or older , who are at [facility] for CRC. Colog uard has been [...] , singl e point in time) of [place] ge-la sk adult s aged 50-84 . Colog uard perfo rmanc e in patie nts ages 45 to 49 years was estim ated by zac-g jeramy cheryl sis of near- age group s. Colog uard perfo rmanc e data in a 10,00 0 patie nt pivot al study using colon oscop y as the refer ence metho d can be acces sed at the [facility] locat ion: www.e xactl abs.c om/re carolin . Addit ional descr iptio n of the Colog uard test proce ss, warni ngs and preca ution s can be found at www.c [facility].nm m. Rx only. Not Available [facility] [address], [place], [address], 01/14/2020 05:59:11 12/22/19 19 12/21/2018 elect rocar diogr am Rate & Rhythm Paced 70's Not Available [address], [address], 12/21/2018 15:59:02 12/22/19 19 12/21/2018 elect rocar diogr am QRS 150 Not Available [address], [address], 12/21/2018 15:59:02 12/22/19 19 12/21/2018 elect rocar diogr am TX Interval 108/12 4 Not Available [address], [address], 12/21/2018 15:59:02 12/22/19 19 12/21/2018 jose smith am QT Interval 458/49 8 Not Available [address], [address], 12/21/2018 15:59:02 01/05/20 19 01/05/2019 CBC w/ auto diff WBC 6.8 x10e3 /uL 3.4-10 .8 Not Available [facility] ([facility]) [address] [place], [address], 01/05/2019 09:12:04 01/05/20 19 01/05/2019 CBC w/ auto diff RBC 4.27 x10e6 /uL 3.77-5 .28 Not Available [facility] ([facility]) [address] [place], [address], 01/05/2019 09:12:04 01/05/20 19 01/05/2019 CBC w/ auto diff hemoglobin 13.0 g/dL 11.1-1 5.9 Not Available [facility] ([facility]) [address] [place], [address], 01/05/2019 09:12:04 01/05/20 19 01/05/2019 CBC w/ auto diff hematocrit 41.0 % 34.0-4 6.6 Not Available [facility] ([facility]) [address] [place], [address], 01/05/2019 09:12:04 01/05/2001/05/2019 CBC w/ auto diff MCV 96 fL 79-97 Not Available [facility] ([facility]) [address] [place], [address], 01/05/2019 09:12:04 01/05/2001/05/2019 CBC w/ auto diff MCH 30.4 pg 26.6-3 3.0 Not Available [facility] ([facility]) [address] [place], [address], 01/05/2019 09:12:04 01/05/2001/05/2019 CBC w/ auto diff MCHC 31.7 g/dL 31.5-3 5.7 Not Available [facility] ([facility]) [address] [facility], [place], [address], 01/05/2019 09:12:04 01/05/2001/05/2019 CBC w/ auto diff RDW 14.6 % 12.3-1 5.4 Not Available [facility] ([facility]) [address] [facility], [place], [address], 01/05/2019 09:12:04 01/05/2001/05/2019 CBC w/ auto diff platelets 166 x10e3 /uL 150-37 9 Eff ectiv e January 08, 2019 the refer ence inter zaid for Plate lets will be watters ing to: 0 - 7 d 140 - 396 x10E3 /uL 8 - 30 d 139 - 531 x10E3 /uL 31 d - 999 yrs 150 - 450 x10E3 /uL Not Available [facility] ([facility]) [address] [facility], [place], [address], 01/05/2019 09:12:04 01/05/2001/05/2019 CBC w/ auto diff neutrophils 63 % not estab. Not Available [facility] ([facility]) [address] [facility], [place], [address], 01/05/2019 09:12:04 01/05/2001/05/2019 CBC w/ auto diff lymphs 24 % not estab. Not Available [facility] ([facility]) [address] [facility], [place], [address], 01/05/2019 09:12:04 01/05/2001/05/2019 CBC w/ auto diff monocytes 6 % not estab. Not Available [facility] ([facility]) [address] [facility], [place], [address], 01/05/2019 09:12:04 01/05/20 19 01/05/2019 CBC w/ auto diff eos 5 % not estab. Not Available [facility] ([facility]) [address] [place], [address], 01/05/2019 09:12:04 01/05/20 19 01/05/2019 CBC w/ auto diff basos 1 % not estab. Not Available [facility] ([facility]) [address] [place], [address], 01/05/2019 09:12:04 01/05/2001/05/2019 CBC w/ auto diff immature cells JOURNAL BOX INSPECTOR Not Available [facility] ([facility]) [address] [place], [address], 01/05/2019 09:12:04 01/05/2001/05/2019 CBC w/ auto diff neutrophils (absolute) 4.2 x10e3 /uL 1.4-7. 0 Not Available [facility] ([facility]) [address] [place], [address], 01/05/2019 09:12:04 01/05/2001/05/2019 CBC w/ auto diff lymphs (absolute) 1.7 x10e3 /uL 0.7-3. 1 Not Available [facility] ([facility]) [address] [place], [address], 01/05/2019 09:12:04 01/05/2001/05/2019 CBC w/ auto diff monocytes(ab solute) 0.4 x10e3 /uL 0.1-0. 9 Not Available [facility] ([facility]) [address] [place], [address], 01/05/2019 09:12:04 01/05/20 19 01/05/2019 CBC w/ auto diff eos (absolute) 0.4 x10e3 /uL 0.0-0. 4 Not Available [facility] ([facility]) [address] [facility] [place], [address], 01/05/2019 09:12:04 01/05/2001/05/2019 CBC w/ auto diff baso (absolute) 0.1 x10e3 /uL 0.0-0. 2 Not Available [facility] ([facility]) [address] [facility] [place], [address], 01/05/2019 09:12:04 01/05/20 19 01/05/2019 CBC w/ auto diff immature granulocytes 1 % not estab. Not Available [facility] ([facility]) [address] [facility] [place], [address], 01/05/2019 09:12:04 01/05/2001/05/2019 CBC w/ auto diff immature grans (abs) 0.1 x10e3 /uL 0.0-0. 1 Not Available [facility] ([facility]) [address] [place], [address], 01/05/2019 09:12:04 01/05/2001/05/2019 CBC w/ auto diff NRBC JOURNAL BOX INSPECTOR Not Available [facility] ([facility]) [address] [place], [address], 01/05/2019 09:12:04 01/05/2001/05/2019 CBC w/ auto diff hematology comments: JOURNAL BOX INSPECTOR Not Available [facility] ([facility]) [address] [place], [address], 01/05/2019 09:12:04 01/05/2001/05/2019 CMP, serum or plasm a glucose 473 mg/dL 65-99 above high normal Not Available [facility] ([facility]) [address] [place], [address], 01/05/2019 09:12:05 01/05/20 19 01/05/2019 CMP, serum or plasm a BUN 24 mg/dL 8-27 Not Available [facility] ([facility]) [address] [place], [address], 01/05/2019 09:12:05 01/05/2001/05/2019 CMP, serum or plasm a creatinine 1.11 mg/dL 0.57-1 .00 above high normal Not Available [facility] ([facility]) [address] [place], [address], 01/05/2019 09:12:05 01/05/20 19 01/05/2019 CMP, serum or plasm a eGFR if nonafricn AM 51 mL/mi n/1.7 3 >59 below low normal Not Available [facility] ([facility]) [address] [place], [address], 01/05/2019 09:12:05 01/05/20 19 01/05/2019 CMP, serum or plasm a eGFR if africn AM 59 mL/mi n/1.7 3 >59 below low normal Not Available [facility] ([facility]) [address] [place], [address], 01/05/2019 09:12:05 01/05/2001/05/2019 CMP, serum or plasm a BUN/creatini ne ratio 22 12-28 Not Available [facility] ([facility]) [address] [facility] [place], [address], 01/05/2019 09:12:05 01/05/2001/05/2019 CMP, serum or plasm a sodium 137 mmol/ L 134-14 4 Not Available [facility] ([facility]) [address] [facility] [place], [address], 01/05/2019 09:12:05 01/05/2001/05/2019 CMP, serum or plasm a potassium 4.7 mmol/ L 3.5-5. 2 Not Available [facility] ([facility] [address] [facility] [place], [address], 01/05/2019 09:12:05 01/05/2001/05/2019 CMP, serum or plasm a chloride 97 mmol/ L 96-106 Not Available [facility] ([facility]) [address] [facility] [place], [address], 01/05/2019 09:12:05 01/05/20 19 01/05/2019 CMP, serum or plasm a carbon dioxide, total 24 mmol/ L 20-29 Not Available [facility] ([facility]) [address] [facility] [place], [address], 01/05/2019 09:12:05 01/05/2001/05/2019 CMP, serum or plasm a calcium 9.5 mg/dL 8.7-10 .3 Not Available [facility] ([facility]) [address] [place], [address], 01/05/2019 09:12:05 01/05/2001/05/2019 CMP, serum or plasm a protein, total 6.3 g/dL 6.0-8. 5 Not Available [facility] ([facility]) [address] [facility] [place], [address], 01/05/2019 09:12:05 01/05/2001/05/2019 CMP, serum or plasm a albumin 4.1 g/dL 3.6-4. 8 Not Available [facility] ([facility]) [address] [place], [address], 01/05/2019 09:12:05 01/05/2001/05/2019 CMP, serum or plasm a globulin, total 2.2 g/dL 1.5-4. 5 Not Available [facility] ([facility]) [address] [place], [address], 01/05/2019 09:12:05 01/05/2001/05/2019 CMP, serum or plasm a A/G ratio 1.9 1.2-2. 2 Not Available [facility] ([facility]) [address] [place], [address], 01/05/2019 09:12:05 01/05/2001/05/2019 CMP, serum or plasm a bilirubin, total <0.2 mg/dL 0.0-1. 2 Not Available [facility] ([facility]) [address] [facility] [place], [address], 01/05/2019 09:12:05 01/05/20 19 01/05/2019 CMP, serum or plasm a alkaline phosphatase 132 IU/L 39-117 above high normal Not Available [facility] ([facility]) [address] [facility] [place], [address], 01/05/2019 09:12:05 01/05/2001/05/2019 CMP, serum or plasm a AST (SGOT) 16 IU/L 0-40 Not Available [facility] ([facility]) [address] [facility] [place], [address], 01/05/2019 09:12:05 01/05/2001/05/2019 CMP, serum or plasm a ALT (SGPT) 18 IU/L 0-32 Not Available [facility] ([facility]) [address] [facility] [place], [address], 01/05/2019 09:12:05 01/05/20 19 01/05/2019 lipid panel , serum cholesterol, total 195 mg/dL 100-19 9 Not Available [facility] ([facility]) [address] [facility] [place], [address], 01/05/2019 09:12:06 01/05/2001/05/2019 lipid panel , serum triglyceride s 200 mg/dL 0-149 above high normal Not Available [facility] ([facility]) [address] [facility] [place], [address], 01/05/2019 09:12:06 01/05/20 19 01/05/2019 lipid panel , serum HDL cholesterol 58 mg/dL >39 Not Available [facility]) [address] [place], [address], 01/05/2019 09:12:06 01/05/2001/05/2019 lipid panel , serum VLDL cholesterol shruthi 40 mg/dL 5-40 Not Available [facility] ([facility]) [address] [place], [address], 01/05/2019 09:12:06 01/05/2001/05/2019 lipid panel , serum LDL cholesterol calc 97 mg/dL 0-99 Not Available [facility] ([facility]) [address] [place], [address], 01/05/2019 09:12:06 01/05/2001/05/2019 lipid panel , serum comment: JOURNAL BOX INSPECTOR Not Available [facility] ([facility]) [address] [place], [address], 01/05/2019 09:12:06 01/05/2001/05/2019 iron + total iron- yoko ng capac ity (TIBC ), serum iron bind.cap.(TI BC) 296 ug/dL 250-45 0 Not Available [facility] ([facility]) [address] [place], [address], 01/05/2019 09:12:06 01/05/2001/05/2019 iron + total iron- yoko ng capac ity (TIBC ), serum UIBC 244 ug/dL 118-36 9 Not Available [facility] ([facility]) [address] [place], [address], 01/05/2019 09:12:06 01/05/2001/05/2019 iron + total iron- yoko ng capac ity (TIBC ), serum iron 52 ug/dL 27-139 Not Available [facility] ([facility]) [address] [place], [address], 01/05/2019 09:12:06 01/05/20 19 01/05/2019 iron + total iron- yoko ng capac ity (TIBC ), serum iron saturation 18 % 15-55 Not Available [facility] [address] [facility], [place], [address], 01/05/2019 09:12:06 01/05/20 19 01/05/2019 vitam in B12 + folat e, serum or blood vitamin B12 440 pg/mL 232-12 45 Not Available [facility] ([facility]) [address] [place], [address], 01/05/2019 09:12:07 01/05/2001/05/2019 vitam in B12 + folat e, serum or blood folate (folic acid), serum 11.0 NG/mL >3.0 A serum folat e kimmie ntrat ion of less than 3.1 ng/mL is consi dered to repre sent clini shruthi defic iency . Not Available [facility] ([facility]) [address] [facility], [place], [address], 01/05/2019 09:12:07 01/05/2001/05/2019 HbA1c (hemo globi n A1c), blood hemoglobin A1C 11.0 % 4.8-5. 6 above high normal Predi abete s: 5.7 - 6.4 Diabe myke: >6.4 Glyce valentín contr ol for adult s with diabe myke: <7.0 Not Available [facility] ([facility]) [address] [facility], [place], [address], 01/05/2019 09:12:07 01/05/2001/05/2019 keven tin, serum or plasm a ferritin, serum 52 NG/mL 15-150 Not Available [facility] ([facility]) [address] [place], [address], 01/05/2019 09:12:08 03/01/20 19 03/01/2019 XR, chest , 2 view No observ ation record ed. [email or web address] Not Available 2018 17:48:45 03/01/20 19 03/01/2019 CT, chest , w/ contr ast No observ ation record ed. [email or web address] Not Available 2018 12:24:57 03/15/20 19 03/15/2019 XR, chest , 2 view No observ ation record ed. [email or web address] [facility] [address] [facility], [place], [address], 03/16/2019 08:07:13 03/29/20 19 03/29/2019 MAMMO , [...] ardio gram No observ ation record ed. [address] [place], [address], 08/13/2019 14:33:03 08/13/20 19 08/13/2019 US, echoc ardio gram No observ ation record ed. [address] [place], [address], 08/13/2019 14:32:45 Result Notes None recorded. Problems Name Problem SNOMED Code Status Onset Date Resolution Date Notes Provider Name and Address Organization Details Recorded Time Congestive heart failure 83244873 Active 2018 Alis umana [facility] 9 09:57:57 Coronary arterioscleros is 91682751 Active 2018 Alis umana [facility] 9 09:58:16 Chronic obstructive pulmonary disease 60301956 [facility] 09:58:22 Kidney disease 71562668 [facility] 09:58:32 Monitoring of pacemaker 82748956 Active 2018 [facility] 9 09:58:46 Pulmonary embolism 33242060 Active 2018 [facility] 9 09:59:03 Diabetes mellitus 48340624 Active 2018 [facility] 9 10:06:13 Depressive disorder 24896257 Active 2018 [facility] 9 10:15:09 Acute non-ST segment elevation myocardial infarction 170861291 Active 2018 [facility] 9 10:15:28 Harmful pattern of use of opioid 2961739 Active 2018 [facility] 9 10:15:48 Left bundle branch block 03847429 Active 2018 [facility] 9 10:16:12 Hypertensive disorder 07866944 Active 2018 [facility] 9 10:16:19 Gastroesophage al reflux disease 812755559 Active 2018 [facility] 9 10:16:25 Dyslipidemia 326395975 Active 2018 [facility] 9 10:16:37 Anxiety 42294883 Active 2018 [facility] 9 10:16:51 Problem Notes None recorded. Procedures Surgical History Date Name Laterality Status Provider Name and Address Organization Details Recorded Time 05/16/20 19 Venipuncture completed Cassy Maki [facility] 01/04/2019 10:47:25 procedure on gallbladder completed [facility] 12/21/2018 10:00:31 Appendectomy completed [facility] 12/21/2018 10:00:48 cardiac pacemaker procedure completed [facility] 12/21/2018 10:00:57 Tubal Ligation completed [facility] 12/21/2018 10:01:12 Hernia Repair completed [facility] 12/21/2018 10:01:22 Imaging Results None recorded. Procedure Notes None recorded. Medical Equipment None Reported. Allergies Allergen ID Allergen Name Allergen Category Reaction Reaction Severity Criticality Documentation Date Start Date Code Code System Note Provider Name and Address Organization Details Recorded Time 3563 Bactrim medicatio n Not available Not available Not available 12/21/2018 83752 9 RxNorm [facility] 9 09:54:20 3564 Substance with sulfonami de structure and antibacte rial mechanism of action (substanc e) medicatio n Not available Not available Not available 12/21/2018 04842 8003 SNOMED [facility] 9 09:54:26 3565 naproxen medicatio n Not available Not available Not available 12/21/2018 7258 RxNorm [facility] 9 09:54:33 3566 Cephalosp arturo (substanc e) medicatio n Not available Not available Not available 12/21/2018 32982 7003 SNOMED [facility] 9 09:57:41 Medications Name Sig Start [...] Address Organization Details Last Updated DateTime 9 [address]489.3 6 g 38.1 kg/m2 160.02 cm 88 /min 98 % 98 % 110/68 mm[Hg] Maribel rodríguez [facility] 9 14:17:58 Date Recorded Body temperature Heart rate Oxygen saturation Oxygen saturation in Arterial blood by Pulse oximetry Systolic And Diastolic Provider Name and Address Organization Details Last Updated DateTime 9 97.7 [degF] 71 /min 93 % 93 % 106/63 mm[Hg] Alis Gutierrez [facility] 9 16:14:49 Date Recorded Body height Body temperature Body mass index (BMI) Body weight Oxygen saturation Oxygen saturation in Arterial blood by Pulse oximetry Heart rate Systolic And Diastolic Provider Name and Address Organization Details Last Updated DateTime 9 160.02 cm 97.5 [degF] 38.3 kg/m2 49578.9 5 g 95 % 95 % 77 /min 121/67 mm[Hg] Alis Gutierrez [facility] 9 09:14:33 Date Recorded Body height Body mass index (BMI) Body weight Body temperature Oxygen saturation Oxygen saturation in Arterial blood by Pulse oximetry Heart rate Systolic And Diastolic Systolic And Diastolic Provider Name and Address Organization Details Last Updated DateTime 9 160.02 cm 39.4 kg/m2 737478. 22 g 97.7 [degF] 97 % 97 % 77 /min 144/73 mm[Hg] 127/78 mm[Hg] Sara Briana [facility] 9 15:37:01 Social History Question Answer Notes LastModified by [employer] Details LastModified Time Tobacco Smoking Status Never Smoker Alis Gutierrez [facility] 12/21/2018 10:00:17 Do You Have An [...] Do You Have A Medical Power Of Mini Shifter? No Information not available 12/21/2018 What Was The Date Of Your Most Recent Tobacco Screening? 01/26/2019 Information not available 03/15/2019 Seat Belts Used Routinely Yes Information not available 12/21/2018 Do You Have Smoke And Carbon Monoxide Detectors In Your Home? Yes Information not available 12/21/2018 Sex: Unknown Functional Status Question Answer Note LastModified by [employer] Details LastModified Time What is your exercise [...] Pneumococcal conjugate PCV 13 8 completed Jennifer Vincentkal [facility] 01/05/2019 10:22:42 pneumococcal polysaccharide PPV23 2 completed Jennifer Vincentkal [facility] 01/05/2019 10:22:53 pneumococcal, unspecified formulation 6 completed Jennifer Vincentkal [facility] 01/05/2019 10:23:16 [facility] 10:23:30 zoster live 6 completed Jennifer kal [facility] 01/05/2019 10:23:42 Past Encounters Encounter ID Performer Location Encounter Start Date Encounter Closed Date Diagnosis/Indication Diagnosis SNOMED-CT Code Diagnosis ICD10 Code Diagnosis IMO Codes Diagnosis Note [id number] Kaila hylton NP, [address] [address] 12/21/2018 09:49:31 12/21/2018 10:57:22 Iron deficiency anemia 45352748 D50.9 Essential hypertension 06566330 I10 Anxiety 46462671 F41.9 Neuropathy due to diabetes mellitus 646215832 E13.40 Gastroesop hageal reflux disease 296700903 K21.9 Depressive disorder 3548 9007 F32.9 History of pulmonary embolus 391592251 Z86.711 Chest pain 91154374 R07. 9 [id number] Kaila hylton NP, [address] [address] 01/04/2019 08:53:58 01/04/2019 10:14:08 Chronic obstructive pulmonary disease 74767196 J44.9 Congestive heart failure 67535520 I50.9 Coronary arteriosclerosis 84694211 I25.10 Diabetes mellitus 057227 09 E11.9 Kidney disease 52056369 N08 [id number] Jennifer Lagos NP, [facility] [address] [place] [address] 01/12/2019 13:26:52 01/12/2019 15:31:02 Type 2 diabetes mellitus 22276276 E11.37X1 Coronary arteriosclerosis 42309091 I25.10 Anxiety 74060059 F41.9 Essential hypertension 03265459 I10 Neuropathy due to diabetes mellitus 735410133 E11.40 Hyperlipidemia 77823085 E78.5 Gastroesop hageal reflux disease 121847548 K21.9 History of pulmonary embolus 765578946 Z86.711 Depressive disorder 3548 9007 F32.9 Screening for malignant neoplasm of breast 099156584 Z12.31 Iron deficiency 24722899 E61.1 Screening for malignant neoplasm of colon 287557409 Z12.11 [id number] Kaila hylton NP, [address] [address] 01/24/2019 16:04:33 01/24/2019 16:34:04 Essential hypertension [id number] I10 [id number] Kaila hylton NP, [address] [phone] 01/26/2019 09:06:37 01/26/2019 09:33:21 Hypertensive disorder [id number] I10 [id number] Kaila hylton NP, [address] [address] 01/31/2019 15:27:37 01/31/2019 15:45:19 Health Concerns Section Related Observation LastModified by Organization Detai ls LastModified Time None Recorded Concern Status LastModified by Organization Details LastModified Time None Recorded Advance Directives Directive N: Payers Insurance Date Sequence Insurance Name Policy Number Policy Lambert Covered Member ID Lambert Member ID Guarantor Name 03/26/2019 1 MEDICARE B-SD: [employer] Deanna Chacon [id number] Deanna Chacon Notes Date Note Type Note Provider Name and Address Organization Details Recorded Time 01/04/2019 text/html Patient is here for her labs to be drawn per orders of her provider. Cassy Maki lyndsay, [facility] 01/04/2019 10:51:07 01/12/2019 text/html Deanna is here today to establish care. She recently moved here from [place], [place] 1. DMII: This is treated with [...] years ago. Most recently seeing cardiology in [place]. 6. Anxiety/Depression : controlled with citalopram. 7. COPD: never been on inhalers, denies SOB, cough or wheezing. 8. Chronic kidney disease: does not recall ever having an ultrasound of kidneys. Current GFR 51. 7. Due for mammogram, due for colon cancer screening. States she had bone density testing over 10 years ago. Jennifer umana, [facility] 01/14/2019 15:05:09 01/24/2019 text/html Pt comes in today concerned with her blood pressure. She is [...] intact, no weakness or neurological deficits. Lianna umana, [facility] 01/25/2019 15:17:26 01/26/2019 text/html Pt has [...] adjustments. Case has been discussed with PCP. Lianna umana [facility] 01/26/2019 09:38:55 01/31/2019 text/html Blood pressure has improved. Light headedness/dizzine ss has improved. She still feels tired but her fatigue level is improved from previous. She is tolerating dose of torsemide well. Lianna umana [facility] 01/31/2019 16:31:20 OBGyn Episode No OBEpisode recorded.
--- OUTSIDE RECORDS SUMMARY | 2025-06-14 14:07 | XMS_ITS | Encounter Summary ---
Author Organization [facility], Address [address] [place] [address] Phone Care Team Providers Care Dog License Officer Supervisor Name Role Phone Monroe García MD Primary Care Provider [phone] Reason for Visit * Reason Comments Med Refill Encounter Details Date Type Department Care Team (Late st Contact Info) Description 09/22/2021 Refill [facility] [address] [place] [phone] Kenna Plummer MD Social History Tobacco Use [...] Visit [facility] [address]. [address] [place] [phone] Bereket Olivo MD [address] [phone] documented as of this encounter Visit Diagnoses Not on filedocumented in this encounter Care Teams Dog License Officer Supervisor Relationship Specialty Start Date End Date Monroe García MD 10 [facility] [address] [place] [address] [phone] PCP - General Family Medicine 04/11/25 documented as of this encounter
--- OUTSIDE RECORDS SUMMARY | 2025-06-14 14:07 | XMS_ITS | Clinical Summary ---
Author Organization [facility] Address [address] [place] [phone] Phone Care Team Providers Care Sexer Name Role Phone Monroe García MD Primary [...] day by oral route. Active Continuous Glucose Acid Cutter (InflectionStyle Danica 3 [place]ia) device As directed for use with sensors [...] Office Visit [facility]. [address] [phone] Bereket Olivo MD Other acute kidney failure [...] Office Visit [facility] [address] [phone] Bereket Olivo MD [address] [phone] Health Maintenance Due Date Last Done Comments [...] Creatinine, Ur 60.8 Not Estab. mg/dL [facility] Albumin, Urine 6.3 Not Estab. ug/mL [facility] Albumin/Creatin ine Ratio 10 0 - 29 mg/g creat [facility] Comment: Normal: 0 - 29 Moderately increased: 30 - 300 Severely increased: >300 Urine Urine specimen obtained by clean catch procedure / Unknown 04/16/2025 11:17 AM EDT 04/16/2025 us Bereket Olivo MD LAB URINE ORDERABLES Final Resul t [facility] [address] [place] [address] * (ABNORMAL) Vit D 25 hydroxy (04/16/2025 11:17 AM EDT) Vitamin D, 25-OH, Total 24.6(L) 30.0 - 100.0 ng/mL [facility] [place] Comment: Vitamin D deficiency has been defined by the [place] of [employer] and an Endocrine Society practice guideline as a level of serum 25-OH vitamin D less than 20 ng/mL (1,2). The Endocrine Society went on to further define vitamin D insufficiency as a level between 21 and 29 ng/mL (2). 1. IOM ([place] of [employer]). 2010. Dietary reference intakes for [...] ORDERABLES Final Resul t Performing Organization Address City/[facility]/ZIP Co de Phone Number [facility] [address] [place] [phone] * (ABNORMAL) PTH, intact (04/16/2025 11:17 AM EDT) PTH 72(H) 15 - 65 pg/mL [facility] Blood Venous blood / Unknown 04/16/2025 11:17 AM EDT 04/16/2025 Bereket Olivo MD LAB BLOOD ORDERABLES Final Resul t [facility] [address] [place] [phone] * (ABNORMAL) Renal funtion panel (04/16/2025 11:17 AM EDT) Glucose 285(H) 70 - 99 mg/dL [facility] BUN 27 8 - 27 mg/dL [facility] Creatinine 1.45(H) 0.57 - 1.00 mg/dL [facility] eGFR CKD-EPI CR 2020 38(L) >59 mL/min/1.7 3 [facility] BUN/Creatinine Ratio 19 12 - 28 [facility] Sodium 139 134 - 144 mmol/L [facility] Potassium 5.4(H) 3.5 - 5.2 mmol/L [facility] Chloride 100 96 - 106 mmol/L [facility] Bicarbonate (CO2) 14(L) 20 - 29 mmol/L [facility] Calcium 10.3 8.7 - 10.3 mg/dL [facility] Albumin 4.6 3.8 - 4.8 g/dL [facility] Phosphorus 4.0 3.0 - 4.3 mg/dL [facility] Blood Venous blood / Unknown 04/16/2025 11:17 AM EDT 04/16/2025 us Bereket Olivo MD LAB BLOOD ORDERABLES Final Resul t [facility] [address] [place] [address] * Renal Function Panel (External Lab) (03/18/2025) Glucose 154 mg/dL BUN 24 mg/dL eGFR 39 Sodium 140 mEq/L Potassium 4.9 mEq/L Chloride 102 Carbon Dioxide 22 mmol/L Calcium 9.9 mg/dL Creatinine 1.41 mg/dL Anion Gap 16 Blood 03/18/2025 us Historical Provider LAB BLOOD ORDERABLES Kera l Result from Last 3 Months Insurance [facility] ([id number]) [place] [phone] Care Teams Sexer Relationship Specialty Start Date End Date Monroe García MD [address] [phone] PCP - General Family Medicine 04/11/25
--- OUTSIDE RECORDS SUMMARY | 2025-06-14 14:07 | XMS_ITS | Data Portability ---
Author Organization [place] 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 Small amount of cerumen was removed bilaterally. Otologic exam demonstrates TMs are intact with well-aerated middle ear spaces, confirmed with tympanometry. Audiogram shows essentially stable neurosensory hearing loss, with mild age-related changes in the left ear. Patient is medically cleared for left amplification. Discussed the benefits of amplification including but not limited to improving social communication, masking tinnitus, delaying dementia, and reducing likelihood of depression and anxiety. She is not interested in hearing aids at this time, and will continue to observe. Recommend annual follow up with repeat audiometric testing, or sooner with any concerns. [email or web address] Not available 03/20/2025 12:36:08 Plan of Treatment Reminders Order Date Submit Date Provider Last Modified By Organization Details Last Modified Time Details Appointments Hearing Test 2025 11:00A M Hearing Test Not available Not available Not available Establish ed 15 2025 11:30A M GREGORY DEAN PA-C Not available Not available Not available Lab None recorded. Referral None recorded. Procedures None recorded. Surgeries None recorded. Imaging None recorded. Medication Orders clotrimaz ole 10 mg laura 2023 024 [facility] - [place], [place] - [id number], [address] [facility], [place], [address], 02/29/2024 15:18:10 Patient TargetsNo targets recorded. Patient InstructionsNo instructions recorded. Reason for Referral None Reported. Results Created Date Observation Date Name Description Value Unit Range Abnormal Flag Note LastModifiedBy Organization Detail LastModifiedTime 02/01/20 24 audio gram No observ ation record ed. BARCODE Not Available 2023 11:43:07 03/01/20 24 audio gram No observ ation record ed. [email or web address] Not Available 02/19 10:50:14 03/20/20 25 audio gram No observ ation record ed. BARCODE Not Available 2024 13:17:00 Result Notes None recorded. Problems Name Problem SNOMED Code Status Onset Date Resolution Date Notes Provider Name and Address Organization Details Recorded Time Bilateral tinnitus 2318831179173 Active 2023 GREGORY DEAN PA-C [address] [facility] [address], [place], [address], [place] [facility] 5 12:36:14 Lesion of oral mucosa 9228008827959 106 Active 2023 JAMES ANDUJAR MD [address] [facility] [address], [place], [address], [facility] [place] 4 14:08:19 Sensorineur al hearing loss of bilateral ears 695889544 Active 2023 DAVE OBANDO [address], [place], [address], [facility] - [facility] [place] 4 14:32:45 Xerostomia 11061378 Active 2023 JAMES ANDUJAR MD [address] [facility] [address], [place], [address], [facility] - [facility] [place] 4 14:42:34 Impacted cerumen of bilateral ears 0201674852137 108 Active 2024 GREGORY DEAN PA-C [address], [place], [address], [facility] - [facility] [place] 5 12:33:03 Problem Notes None recorded. Procedures Surgical History Date Name Laterality Status Provider Name and Address Organization Details Recorded Time 03/20/20 25 Cerumen removal without microscope bilat completed GREGORY DEAN PA-C [address], [address], [facility] [place] 03/20/2025 12:32:54 03/20/20 25 Air & Speech Audio with Tymps - 10814, 84497 & 61493 completed CODI MEADE, [address], [address], [facility] [place] 03/20/2025 11:32:03 02/29/20 24 Tympanometry - 14051 completed CANDACE BEVERLY [address], [address], [facility] 02/29/2024 14:26:37 01/23/20 24 Comp Audio with Tymps - 14661 & 07589 completed CODI MEADE, [address], [address], [facility] 01/23/2024 14:32:34 ligation of fallopian tube completed JAMES Keyes MD [address] [place] [address], [phone] [place] [address] [facility] 01/23/2024 14:00:02 Cholecystectomy completed JAMES Keyes MD [address] [place] [address], [phone], [facility] - [facility] [place] 01/23/2024 14:00:11 Imaging Results None recorded. Procedure Notes None recorded. Medical Equipment None Reported. Allergies Allergen ID Allergen Name Allergen Category Reaction Reaction Severity Criticality Documentation Date Start Date Code Code System Note Provider Name and Address Organization Details Recorded Time 471797 Bactrim medicatio n Not available Not available Not available 01/23/2024 28410 9 RxNorm Vlad umana [facility] 13:14:12 283729 Substance with sulfonami de structure and antibacte rial mechanism of action (substanc e) medicatio n Not available Not available Not available 01/23/2024 62288 8003 SNOMED Vlad umana [place] [facility] 4 13:14:20 730478 lisinopri l medicatio n Not available Not available Not available 01/23/2024 63978 RxNorm Vlad umana [place] [facility] 4 13:14:34 875211 Dexedrine medicatio n Not available Not available Not available 01/23/2024 33017 2 RxNorm Vlad umana, [place] - [facility] 4 13:14:53 Medications Name Sig Start Date Stop Date Status Note LastModified by Organization Details LastModified Time atorvastati n 40 mg tablet TAKE 2 TABLETS BY MOUTH ONCE DAILY active Not Available Not Available No t Available clotrimazol e 10 mg laura Take 1 tablet 5 times a day by oral route for 7 days. 02/28 completed Not Available Not Available Not Available atorvastati n 80 mg tablet TAKE 1 TABLET BY MOUTH ONCE DAILY active Not Available Not Available No t Available nystatin 100,000 unit/mL oral suspension active Not Available Not Available N ot Available acetaminoph en 325 mg tablet TAKE 1 TABLET BY MOUTH 4 (FOUR) TIMES DAILY NEEDED FOR FEVER OR FOR PAIN active Not Available Not Available No t Available torsemide 20 mg tablet TAKE 1 & 1/2 TABLETS BY MOUTH ONCE DAILY active Not Available Not Available No t Available quetiapine 300 mg tablet active Not Available Not Available Not Available carbidopa ER 25 mg-levodopa 100 mg tablet,exte nded release TAKE 1 TABLET BY MOUTH two (2) times a day. TAKE 1/2 HOUR BEFORE BREAKFAST AND 1/2 HOUR BEFORE LUNCH. MAY TAKE WITH cracker active Not Available Not Available No t Available fluconazole 150 mg tablet active Not Available Not Available Not Available metoprolol succinate ER 50 mg tablet,exte nded release 24 hr TAKE 1 & 1/2 TABLETS BY MOUTH ONCE DAILY active Not Available Not Available No t Available ondansetron HCl 4 mg tablet active Not Available Not Available Not Available isosorbide mononitrate ER 30 mg tablet,exte nded release 24 hr TAKE 1 TABLET BY MOUTH ONCE DAILY IN THE MORNING active Not Available Not Available No t Available clopidogrel 75 mg tablet TAKE 1 TABLET BY MOUTH ONCE DAILY active Not Available Not Available No t Available quetiapine 100 mg tablet TAKE 3 TABLETS BY MOUTH AT BEDTIME active Not Available Not Available No t Available spironolact one 25 mg tablet TAKE 1 TABLET BY MOUTH ONCE DAILY active Not Available Not Available No t Available pantoprazol e 20 mg tablet,jessica yed release TAKE 2 TABLETS BY MOUTH ONCE DAILY active Not Available Not Available No t Available isosorbide mononitrate ER 60 mg tablet,exte nded release 24 hr TAKE 1 TABLET BY MOUTH EVERY MORNING active Not Available Not Available No t Available phenazopyri dine 100 mg tablet TAKE 1 TABLET BY MOUTH 3 (THREE) TIMES A DAY NEEDED FOR dysuria FOR 2 DAYS active Not Available Not Available No t Available fluconazole 50 mg tablet active Not Available Not Available Not Available nitrofurant oin macrocrysta l 100 mg capsule active Not Available Not Available Not Available losartan 25 mg tablet active Not Available Not Available No t Available metoprolol tartrate 50 mg tablet active Not Available Not Available No t Available nitroglycer in 0.4 mg sublingual tablet DISSOLVE 1 TAB UNDER THE TONGUE EVERY 5 MINS x 3 NEEDED FOR CHEST PAIN. IF NOT RELIEVED AFTER 3RD DOSES, CALL 911 active Not Available Not Available No t Available mirtazapine 15 mg tablet TAKE 1 TABLET BY MOUTH AT BEDTIME active Not Available Not Available No t Available gabapentin 100 mg capsule TAKE 2 CAPSULES BY MOUTH 3 (THREE) TIMES A DAY active Not Available Not Available No t Available carbidopa 25 mg-levodopa 100 mg tablet TAKE 1 TABLET BY MOUTH two (2) times a day. TAKE WITH A cracker 30 MINUTES BEFORE BREAKFAST AND DINNER active Not Available Not Available No t Available insulin lispro (U-100) 100 unit/mL subcutaneou s pen active Not Available Not Available Not Available valsartan 40 mg tablet TAKE 1 TABLET BY MOUTH ONCE DAILY active Not Available Not Available No t Available Novolog FlexPen U-100 Insulin aspart 100 unit/mL (3 mL) subcutaneou s INJECT SUBCUTANE OUSLY DIRECTED VIA sliding scale (150-200 2u; 201-250 4u; 251-300 6u; 301-350 8u; 351-400 10u; 401-450 12u; >450 12u & call MD) active Not Available Not Available No t Available nitrofurant oin monohydrate /macrocryst als 100 mg capsule TAKE 1 CAPSULE BY MOUTH EVERY TWELVE HOURS FOR 3 DAYS. must TAKE WITH A MEAL OR FOOD active Not Available Not Available No t Available duloxetine 20 mg capsule,del ayed release TAKE 2 CAPSULES BY MOUTH EVERY MORNING active Not Available Not Available No t Available Seroquel active Not Available Not Avai lable Not Available torsemide active Not Available Not Diamond ilable Not Available Plavix active Not Available Not Availa ble Not Available spironolact one active Not Available Not Available Not Available metoprolol succinate active Not Available Not Available No t Available mirtazapine active Not Available Not A vailable Not Available FreeStyle Lite Strips USE TO TEST FINGER STICK BLOOD SUGAR 3 (THREE) TIMES A DAY DIRECTED active Not Available Not Available No t Available Lantus Solostar U-100 Insulin 100 unit/mL (3 mL) subcutaneou s pen INJECT 60 UNITS SUBCUTANE OUSLY ONCE DAILY active Not Available Not Available No t Available Ferretts 325 mg (106 mg iron) tablet TAKE 1 TABLET BY MOUTH ONCE DAILY active Not Available Not Available No t Available melatonin 5 mg tablet TAKE 1 TABLET BY MOUTH ONCE DAILY AT BEDTIME NEEDED FOR SLEEP active Not Available Not Available No t Available Eliquis 5 mg tablet TAKE 1 TABLET BY MOUTH two (2) times a day active Not Available Not Available No t Available Eliquis active Not Available Not Avail able Not Available Stimulant Laxative Plus 8.6 mg-50 mg tablet TAKE 1 TABLET BY MOUTH AT BEDTIME active Not Available Not Available No t Available dapaglifloz in propanediol 5 mg tablet active Not Available Not Available Not Available Therapeutic -M 9 mg iron-400 mcg tablet TAKE 1 TABLET BY MOUTH ONCE DAILY active Not Available Not Available No t Available Jardiance 10 mg tablet TAKE 1 TABLET BY MOUTH ONCE DAILY IN THE MORNING active Not Available Not Available No t Available Jardiance active Not Available Not Diamond ilable Not Available duloxetine 40 mg capsule,del ayed release active Not Available Not Available Not Available Droplet Pen Needle 32 gauge x 1/4 USE 4 (FOUR) TIMES DAILY DIRECTED active Not Available Not Available No t Available Baqsimi 3 mg/actuatio n nasal spray SPRAY ONCE INTO either NOSTRIL NEEDED FOR unrespons katelynn hypoglyce melani. max DAILY DOSE 6mg active Not Available Not Available No t Available insulin glargine-yf gn (U-100) 100 unit/mL (3 mL) subcutaneou s pen active Not Available Not Available Not Available True Comfort Safety Pen Needle 32 gauge x 5/32 USE FOR INJECT insulin 4 (FOUR) TIMES DAILY DIRECTED active Not Available Not Available No t Available FreeStyle Danica 3 [place] As directed for use with sensors active Not Available Not Available No t Available Thera-M 19 mg iron-400 mcg tablet TAKE 1 TABLET BY MOUTH ONCE DAILY active Not Available Not Available No t Available FreeStyle Danica 3 Plus Sensor device USE DIRECTED active Not Available Not Available No t Available Vitals Date Recorded Body height Body mass index (BMI) Body weight Provider Name and Address Organization Details Last Updated DateTime 01/23/2024 160.02 cm 38.3 kg/m2 53574.95 g Vlad Garcia [place] [facility] 01/23/2024 13:13:43 Date Recorded Body height Body mass index (BMI) Body weight Provider Name and Address Organization Details Last Updated DateTime 02/29/2024 160.02 cm 39 kg/m2 00430.32 g Vlad Garcia [facility] 02/29/2024 14:31:01 Date Recorded Body height Body mass index (BMI) Body weight Provider Name and Address Organization Details Last Updated DateTime 03/20/2025 160.02 cm 38.1 kg/m2 67988.36 g Shakira Beck [place] [facility] 03/20/2025 11:38:49 Social History None recorded. Functional Status None recorded. Mental Status None recorded. Family History Nothing Reported. Medical History Condition Response Diabetes Y Heart Problems Y Hypertension Y COPD Y Gynecological HistoryNo gynecological history recorded. Obstetrics History GPAL:G 0 P 0 0 0 0 Past Encounters Encounter ID Performer Location Encounter Start Date Encounter Closed Date Diagnosis/Indication Diagnosis SNOMED-CT Code Diagnosis ICD10 Code Diagnosis IMO Codes Diagnosis Note [id number] JAMES UGALDE MD [facility] [address] [address] 01/23/2024 12:22:19 01/23/2024 14:53:50 Bilateral tinnitus 8599509999 102 H93.13 Audio reviewed. Suggest observatio n white noise for masking discussed. Mild asymmetry but bilateral sx. Suggest f/u audio in 6 months Lesion of oral mucosa 10 84451952 017665 K13.70 White exudate of the uvula. Differenti al diagnosis includes oral thrush versus leukoplaki a. Suggest trial of clotrimazo le lozenges, more fluids and follow-up in 3 to 4 weeks for discussion of possible biopsy Sensorineu ral hearing loss of bilateral ears 899842791 H90.3 Audiologic al evaluation results: Right ear: Normal sloping to a moderate sensorineu ral hearing loss with excellent word recognitio n. Left ear: Normal sloping to severe sensorineu ral hearing loss with excellent word recognitio n. Tympanomet ry: Right Ear:Type As Left Ear:Type As [id number] JAMES UGALDE MD [facility] [address] [address] 02/29/2024 13:58:19 02/29/2024 14:57:00 Sensorineural hearing loss of bilateral ears 918685224 H90.3 SRt remains stable from last visit a month ago. Tympanomet ry:Right Ear:Type AsLeft Ear:Type As Lesion of oral mucosa 10 22033909 998338 K13.70 White exudate of the uvula appears to have resolved. I suspect this was due to oral thrush. There is no lesion to biopsy. Suggest sugar-free sour candies and increasing water intake to combat the dry oral mucosa. Likely secondary to anticholin ergic effects of her medication s Xerostomia 50670013 K11. 7 [id number] GREGORY DEAN PA-C [facility] [address] [address] 03/20/2025 10:45:25 03/20/2025 12:56:50 Sensorineural hearing loss of bilateral ears 608851905 H90.3 Audiologic al evaluation results: Right ear: Normal sloping to moderately severe sensorineu ral hearing loss with excellent word recognitio n. Left ear: Normal sloping to profound sensorineu ral hearing loss with excellent word recognitio n. Tympanomet ry: Right Ear:Type As Left Ear:Type As Impacted c erumen of bilateral ears 0801653843 964774 H61.23 752360 Bilateral tinnitus 58090 60054 102 H93.13 147053 Health Concerns Section Related Observation LastModified by Organization Detai ls LastModified Time None Recorded Concern Status LastModified by Organization Details LastModified Time None Recorded Advance Directives Directive None Recorded Payers Insurance Date Sequence Insurance Name Policy Number Policy Lambert Covered Member ID Lambert Member ID Guarantor Name 03/20/2025 1 [facility] - DOS ON OR AFTER 2022 - MEDICARE ADVANTAGE [place]MEDICARE REPLACEMENT/ADV ANTAGE - PPO) Deanna Cottonir [id number] Deanna Cottonir 05/13/2025 1 [facility] - DOS ON OR AFTER 2022 - RETIREMENT OPTIONS AND ONE [employer] (MEDICARE REPLACEMENT/ADV ANTAGE - PPO) Deanna Cottonir [id number] Deanna Chacon Notes Date Note Type Note Provider Name and Address Organization Details Recorded Time 01/23/2024 text/html Patient seen for an opinion regarding 1 year of bilateral tinnitus. She also notes all irritation of the roof of her mouth for about a 6 months. Twice a no history of steroid inhalers. No vertigo or HL JAMES SOLIS MD 100 [facility],[address], [address], [place] - [facility] 01/23/2024 14:46:02 02/29/2024 text/html Patient seen in follow-up for throat irritation and hearing difficulty. Feels that her throat is still dry but much improved. She was treated with clotrimazole. No other interval change in her history. JAMES SOLIS MD 100 [facility],[place] [address], [place], [address], [place] [facility] 02/29/2024 14:42:45 03/20/2025 text/html ROS as noted in the HPI 74yo female presents for evaluation of the ears and hearing loss. She reports stable hearing loss and tinnitus. Denies ear pain, drainage, or dizziness. She is not interested in a hearing aid consult. JAMES SOLIS MD 100 [facility],[address], [address], [place] [facility] 03/20/2025 16:33:30 OBGyn Episode No OBEpisode recorded.
--- OUTSIDE RECORDS SUMMARY | 2025-06-14 14:07 | XMS_ITS | Data Portability ---
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 OTHER TORY RAMIREZ Primary Care Provider Assessment Encounter Date Assessment Date Assessment LastModified by Organization Details LastModified Time 10/04/2018 10/04/2018 Overview/History : 68-year-old female, new to with a past medical history that includes COPD, CAD, s/p pacemaker, hypertension, who was recently hospitalized with unsteady gait/mental status changes, was evaluated for a 16 pound wgt gain. The patient does complain of some mild dyspnea. She had her torsemide discontinued after an acute kidney injury with a creatinine of 1.7 (since normalized to 1.1). The patient denies any fever, chills, sweats, chest pain, back pain, orthopnea, arthralgias or myalgias. Exam: Obese. Older then stated age. NAD. Lungs CTA. HR reg no obvious murmurs. Abd soft non tender. No JVD. LE with 2+ pitting edema. afebrile. O2 sat 94%. No increased resp distress. DDx considered, but not limited to: CHF. Dependent edema. LUDY. CHF - maybe some mild CHF, although no resp distress on exam. Dependent edema also possible given decreased mobility. Work up/Results: Creatinine 1.1. HCT 29. HB 9.9. (Baseline anemia 33/10) Na 137. K 4. Plan/Discussion: Patient instructed to elevate her legs. Use compression stocking. Also instructed to increase her torsemide (is on 10 mg daily) 20 mg daily until seen by her PCP. She was advised to call 9-1 if she develops increased shortness of breath, chest pain or any other concerning symptoms. She reports she has an appointment with PCP in 2 days. In order to obtain further information and compare any laboratory results/values, I have accessed patient records on the [employer]. This information was pertinent in my medical decision making today. Baseline creatinine 1.1. Hb/Hct slightly lower then baseline (33/10) Time On Scene with Patient: 00:37:26 [email or web address] Not available 10/04/2018 17:49:45 10/22/2018 10/22/2018 Overview/History : Pt is a 68yo F with PMH sig for DM and CHF. Pt was seen a few weeks ago by for the same complaint, at that time her torsamide was increased for 3 days and pt was advised to follow up with her PCP, pt states she never f/u with PCP stating it is difficult for her to get there. Pt states that last night she noticed more swelling in her legs and that she was dizzy on and off. Pt states her granddtr who had a cold was staying with her, but denies any other ill like sx, denies JULIEN, sore throat and/or earache. Exam: Pt is A/Ox3, non-toxic appearing, ambulating well around home independently without signs of distress. VSS, HRR, resp reg and unlabored on RA, lungs CTA bilat throughout. Pt has trace to 1+ non-pitting edema to the bilat LE. HEENT exam pos for mod effusions to bilat TMs, tender frontal and maxiallary sinuses and tender cervical lymph nodes with palpation. DDx considered, but not limited to: CHF exacerbation: likely given increase in LE edema and lack of follow up by pt since last visit URI: likely cause of dizziness given PE and recent known sick exposure, early presentation likely Orthostatic Hypotension: possible but pt denies that sx occur every time she changes positions and cannot identify a cause DVT: unlikely given bilat edema, wells score of 0 Work up/Results: BMP: K3.1 BUN/Cr WNL Plan/Discussion: Pt given Kcl for low normal K with increase of torsemide x 3 days to help with early sx of possible CHF exacerbation, reenforced pt needs to follow up with PCP. Pt advised dizziness may be related to viral uri and to use OTC meds like musinex if needed for sx relief. Patients PCP contacted and updated on patient status. Patient verbalized understanding of discharge instructions and when to follow up with PCP/911/ED as needed. Patient in agreement with current plan and treatment. In order to obtain further information and compare any laboratory results/values, I have accessed old patient records. This information was pertinent in my medical decision making today. Time On Scene with Patient: 00:25:27 olga Not available 10/22/2018 17:59:11 Plan of Treatment Reminders Order Date Submit Date Provider Last Modified By Organization Details Last Modified Time Details Appointments None recorded. Lab BMP + ionized calcium, serum or plasma 2018 019 olga [facility], [address] [place], [address], 9 17:41:41 BMP + ionized calcium, serum or plasma 2018 019 elsa [facility], [address] [place], [address], 9 15:21:00 Referral None recorded. Procedures None recorded. Surgeries None recorded. Imaging None recorded. Medication Orders potassium chloride ER 10 mEq tablet,ex tended release [address], [address], 9 17:41:41 potassium chloride ER 10 mEq tablet,ex tended release [address], [address], 9 17:41:47 Patient TargetsNo targets recorded. Patient Instructions Encounter Date Encounter Id Patient Instructions Last Modified By Organization Details Last Modified Time 10/04/2018 [id number] leg and ankle edema: care instructions elsa Not available 10/04/2018 17:49:45 Take Torsemide 2 0 mg daily for the next 3 days until you see your PCP. Watch your salt intake. (No added salt and check amount in pood packaging. Thank you for your visit with [facility] today. We cannot always find the exact cause of your symptoms during your initial visit. Please follow up with your primary care provider or specialist within 2-3 days to be rechecked or seek medical attention if your symptoms do not go away or get worse. If you develop any new or worsening symptoms and need after hours care, please go to nearest ER and/or call 911. If you have additional concerns or develop a change in your condition between 8am-10pm, please call [facility] at [phone] to help navigate your care. Not available 10/04/2018 15:09:16 10/22/2018 [id number] viral respirator y infection: care instructions olga Not available 10/22/2018 17:41:41 heart failure: care instructions olga Not available 10/22/2018 17:41:41 Thank you for yo ur visit with [facility] today. We cannot always find the exact cause of your symptoms during your initial visit. You were seen today for increased swelling of your legs and dizziness. The swelling is most likely related to your heart failure. Please increase your Torsemide from 10mg a day to 20mg a day for 3 days and then follow up with your primary care. Your potassium was on the low side of normal so we gave you some potassium at your visit. We have also sent in a prescription to your pharmacy for the potassium to take while you are taking the higher dose of your torsemide. Your dizziness seem to be most likely related to an upper respiratory infection. Please follow up with your primary care provider or specialist within 2-3 days to be rechecked or seek medical attention if your symptoms do not go away or get worse. If you develop any new or worsening symptoms and need after hours care, please go to nearest ER and/or call 911. If you have additional concerns or develop a change in your condition between 8am-10pm, please call [facility] at [phone] to help navigate your care. olga Not available 10/22/2018 17:41:39 Reason for Referral None Reported. Results Created Date Observation Date Name Description Value Unit Range Abnormal Flag Note LastModifiedBy Organization Detail LastModifiedTime 10/23/19 19 10/22/2018 BMP + ioniz ed calci um, serum or plasm a Na 138 mmol/ L 136-14 5 Not Available [facility] [address] [place], [address], 10/22/2018 17:32:18 10/23/19 19 10/22/2018 BMP + ioniz ed calci um, serum or plasm a K 3.1 mmol/ L 3.5-5. 1 Not Available [facility] - [facility] [address] [place], [address], 10/22/2018 17:32:18 10/23/19 19 10/22/2018 BMP + ioniz ed calci um, serum or plasm a cL 95 mmol/ L 96-111 Not Available [facility] - Home [address] [place], [address], 10/22/2018 17:32:18 10/23/19 19 10/22/2018 BMP + ioniz ed calci um, serum or plasm a ica 1.17 mmol/ L 1.1-1. 4 Not Available [facility] - Home [address] [place], [address], 10/22/2018 17:32:18 10/23/19 19 10/22/2018 BMP + ioniz ed calci um, serum or plasm a TCO2 30 mmol/ L 20-30 Not Available [facility] - [facility] [address] [place], [address], 10/22/2018 17:32:18 10/23/19 19 10/22/2018 BMP + ioniz ed calci um, serum or plasm a glu 77 mg/dL 70-115 Not Available [facility] - Home [address] [place], [address], 10/22/2018 17:32:18 10/23/19 19 10/22/2018 BMP + ioniz ed calci um, serum or plasm a BUN 18 mg/dL 6-24 Not Available [facility] - Home [address] [place], [address], 10/22/2018 17:32:18 10/23/19 19 10/22/2018 BMP + ioniz ed calci um, serum or plasm a crea 1.1 mg/dL .65-1. 36 Not Available [facility] - Home [address] [place], [address], 10/22/2018 17:32:18 10/23/19 19 10/22/2018 BMP + ioniz ed calci um, serum or plasm a HCT 35 %_pcv 40.6-5 0.3 Not Available [facility] - Home [address] [place], [address], 10/22/2018 17:32:18 10/23/19 19 10/22/2018 BMP + ioniz ed calci um, serum or plasm a Hb 11.9 g/dL 13.9-1 7.4 Not Available [facility] - Home [address] [place], [address], 10/22/2018 17:32:18 10/23/19 19 10/22/2018 BMP + ioniz ed calci um, serum or plasm a angap 17 mmol/ L 6-18 Not Available [facility] - Home [address] [place], [address], 10/22/2018 17:32:18 10/21/19 19 10/20/2018 BMP + ioniz ed calci um, serum or plasm a Na 137 mmol/ L 136-14 5 Not Available [facility] - [facility] [address] [place], [address], 10/20/2018 15:18:12 10/21/19 19 10/20/2018 BMP + ioniz ed calci um, serum or plasm a K 4 mmol/ L 3.5-5. 1 Not Available [facility] - Home [address] [place], [address], 10/20/2018 15:18:12 10/21/19 19 10/20/2018 BMP + ioniz ed calci um, serum or plasm a cL mmol/ L 96-111 Not Available [facility] - Home [address] [place], [address], 10/20/2018 15:18:12 10/21/19 19 10/20/2018 BMP + ioniz ed calci um, serum or plasm a ica mmol/ L 1.1-1. 4 Not Available [facility] [address] [place], [address], 10/20/2018 15:18:12 10/21/19 19 10/20/2018 BMP + ioniz ed calci um, serum or plasm a TCO2 mmol/ L 20-30 Not Available [facility] - [facility] [address] [place], [address], 10/20/2018 15:18:12 10/21/19 19 10/20/2018 BMP + ioniz ed calci um, serum or plasm a glu mg/dL 70-115 Not Available [facility] [address] [place], [address], 10/20/2018 15:18:12 10/21/19 19 10/20/2018 BMP + ioniz ed calci um, serum or plasm a BUN mg/dL 6-24 Not Available [facility] - [facility] [address] [place], [address], 10/20/2018 15:18:12 10/21/19 19 10/20/2018 BMP + ioniz ed calci um, serum or plasm a crea 1.1 mg/dL .65-1. 36 Not Available [facility] [address] [place], [address], 10/20/2018 15:18:12 10/21/1910/20/2018 BMP + ioniz ed calci um, serum or plasm a HCT 29 %_pcv 40.6-5 0.3 Not Available [facility] [address] [place], [address], 10/20/2018 15:18:12 10/21/19 19 10/20/2018 BMP + ioniz ed calci um, serum or plasm a Hb 9.9 g/dL 13.9-1 7.4 Not Available [facility] [address] [place], [address], 10/20/2018 15:18:12 10/21/19 19 10/20/2018 BMP + ioniz ed calci um, serum or plasm a angap mmol/ L 6-18 Not Available [facility] - [facility] [address], [place], [address], 10/20/2018 15:18:12 Result Notes None recorded. Problems Name Problem SNOMED Code Status Onset Date Resolution Date Notes Provider Name and Address Organization Details Recorded Time Congestive heart failure 95537450 Active 2018 MARK LIZARRAGA NP [address], [place], [address], [place] [facility] 9 17:22:00 Problem Notes None recorded. Procedures Surgical History Date Name Laterality Status Provider Name and Address Organization Details Recorded Time 019 Venipuncture - DH completed MARK LIZARRAGA NP [address], [place], [address], [place] [facility] 10/22/2018 17:35:02 019 Venipuncture - DH completed CEZAR YIN NP [address] [place], [address], [place] [facility] 10/04/2018 17:35:42 repair of umbilical hernia completed CEZAR YIN NP [address], [place], [address], [place] [facility] 10/04/2018 14:44:20 cholecystectomy completed CEZAR YIN NP [address] [place], [address], [place] [facility] 10/04/2018 14:44:31 Appendectomy completed CEZAR YIN NP [address] [place], [address], [place] [facility] 10/04/2018 14:44:40 cardiac pacemaker procedure completed CEZAR YIN NP [address] [place], [address], [place] [facility] 10/04/2018 14:45:06 Imaging Results None recorded. Procedure Notes None recorded. Medical Equipment None Reported. Allergies Allergen ID Allergen Name Allergen Category Reaction Reaction Severity Criticality Documentation Date Start Date Code Code System Note Provider Name and Address Organization Details Recorded Time 56859 Cephalosp arturo (substanc e) medicatio n rash Not available Not available 10/04/2018 08473 7003 SNOMED CEZAR YIN, SALES [employer] ENGINEER [address], [place], [address], [place] [facility] 9 14:41:14 04214 naproxen medicatio n Not available Not available Not available 10/04/2018 7258 RxNorm CEZAR YIN, SAL[employer] ENGINEER [address] [place], [address], [place] [facility] 9 14:41:30 Medications Name Sig Start Date Stop Date Status Note LastModified by Organization Details LastModified Time atorvastatin 80 mg tablet active Not Available Not Available Not Available isosorbide mononitrate ER 30 mg tablet,exten ded release 24 hr active Not Available Not Available Not Available torsemide 10 mg tablet active Not Available Not Available No t Available potassium chloride ER 10 mEq tablet,exten ded release Take 2 tablets every day by oral route for 3 days. 2018 active Not Available Not Available Not Avai lable bisoprolol fumarate 5 mg tablet active Not Available Not Available No t Available escitalopram 10 mg tablet Take 1 tablet every day by oral route. active Not Available Not Available No t Available Novolog FlexPen U-100 Insulin aspart 100 unit/mL (3 mL) subcutaneous active Not Available Not Available Not Available BD Ultra-Fine Mini Pen Needle 31 gauge x 3/16 active Not Available Not Available Not Available Seroquel active Not Available Not Avai lable Not Available Plavix active Not Available Not Availa ble Not Available mirtazapine active Not Available Not A vailable Not Available Lantus Solostar U-100 Insulin active Not Available Not Available Not Available Humalog Olayinka KwikPen (U-100) 100 unit/mL subcutaneous half-unit pen Inject by subcutaneou s route. active Not Available Not Available No t Available Vitals Date Recorded Respiratory rate Body temperature Oxygen saturation Oxygen saturation in Arterial blood by Pulse oximetry Heart rate Systolic And Diastolic Provider Name and Address Organization Details Last Updated DateTime 9 20 /min 99.3 [degF] 94 % 94 % 84 /min 112/50 mm[Hg] Not Available [facility] 9 14:44:13 Date Recorded Heart rate Respiratory rate Oxygen saturation Oxygen saturation in Arterial blood by Pulse oximetry Body temperature Systolic And Diastolic Provider Name and Address Organization Details Last Updated DateTime 9 75 /min 16 /min 97 % 97 % 97.9 [degF] 120/56 mm[Hg] Not Available [facility] 9 17:33:55 Social History Question Answer Notes LastModified by Organizat ion Details LastModified Time Tobacco Smoking Status Never Smoker CEZAR YIN NP [address], [place], [address], [place] [facility] 10/04/2018 14:45:21 Do You Have An Advance Directive? Yes Carmine Bojorquez [email or web address] Information not available 10/04/2018 What Is Your Code Status? Full Code Information not available 10/04/2018 Within The Past 12 Months, Has It Happened That The Food You Bought Just Didn't Last And You Didn't Have Money To Get More. Overweight Information not available 10/04/2018 Within The Past 12 Months, Have You Worried That Your Food Would Run Out Before You Got Money To Buy More. Yes Information not available 10/04/2018 Fall Risk: Do You Feel Unsteady When Standing Or Walking? Yes Information not available 10/04/2018 Marital Status Information not available 10/04/2018 What Was The Date Of Your Most Recent Tobacco Screening? 10/04/2018 Information not available 03/15/2019 Sex: Unknown Functional Status None recorded. Mental Status None recorded. Family History Relationship Description Onset Age of this Age Resolved Age Notes LastModified by Organization Details LastModified Time Mother Family history of malignant tumor of hypopharynx [email or web address] Not available 14:43:11 Medical History Condition Response Diabetes Y Coronary Artery Disease Y High Cholesterol Y Pulmonary Embolism N Cancer N Hypertension Y Stroke Y Asthma N COPD Y Depression Y Kidney Disease Y Gynecological HistoryNo gynecological history recorded. Obstetrics History GPAL:G 0 P 0 0 0 0 Past Encounters Encounter ID Performer Location Encounter Start Date Encounter Closed Date Diagnosis/Indication Diagnosis SNOMED-CT Code Diagnosis ICD10 Code Diagnosis IMO Codes Diagnosis Note [id number] CEZAR YIN NP [facility] [address] [place] [address] 10/04/2018 14:35:05 10/05/2018 21:51:41 Edema of lower extremity 222779353 R60.0 [id number] MARK LIZARRAGA NP [facility] [address] [facility] [place] [address] 10/22/2018 17:19:29 10/24/2018 18:06:36 Congestive heart failure 18717128 I50.9 Viral uppe r respiratory tract infection 893539416 J06.9 Health Concerns Section Related Observation LastModified by Organization Detai ls LastModified Time None Recorded Concern Status LastModified by Organization Details LastModified Time None Recorded Advance Directives Directive Y: Carmine Bojorquez Payers Insurance Date Sequence Insurance Name Policy Number Policy Lambert Covered Member ID Lambert Member ID Guarantor Name 03/19/2019 1 MEDICARE B-[place]: [facility] [employer] Deanna J Laclair [id number] Deanna Laclair 10/04/2018 1 *SELF PAY* Deanna Laclair [id number] Deanna Laclair Notes Date Note Type Note Provider Name and Address Organization Details Recorded Time 10/04/2018 text/html 68-year-old female, who is new to , with a past medical history that includes CAD, COPD, pacemaker, hypertension, was evaluated for complaints of increased lower extremity edema and weight gain. The patient was recently hospitalized with an altered mental status and was seen by neurology for possible TIA versus seizure disorder. The patient had a positive opiate drug screen although per notes denied any narcotic abuse. She had her lisinopril and torsemide discontinued secondary to LUDY with a creatinine of 1.7. Since being discharged home 1 week ago the patient has gained 16 lbs. She does report some mild dyspnea. She denies any fever, chills, sweats, chest pain, back pain, abdominal pain, vomiting, diarrhea, arthralgias, myalgias or any rashes. CEZAR YIN NP [address] [place], [address], [place] [facility] 10/20/2018 15:21:04 10/22/2018 text/html Pt was seen for the same issue a few weeks ago by , at that time pt's torsamide was increased for a few days and pt was advised to follow up with her PCP, pt states she has been unable to get to the PCP and that she has not been wearing her compression socks. Pt states she notice the swelling last night along with some dizziness, no cp, sob, sheehan, JULIEN, denies feeling ill. MARK LIZARRAGA, MADDY [address], [place], [address], [place] [facility] 10/22/2018 17:59:15 OBGyn Episode No OBEpisode recorded.
[2025-06-14 14:27] LABS: Appearance Urine Cloudy; Glucose Urine UA >=1000 mg/dL (Negative); PH 5.5 (5.0-9.0); Specific Gravity - Urine >= 1.030 (1.005-1.025); UMIC TRIGGER UACC YES
[2025-06-14 14:42] LABS: MANUAL DIFF FLAG NO
[2025-06-14 14:44] LABS: UACC Culture Trigger YES
[2025-06-14 14:50] LABS: Hematocrit 40.3 % (37.0-47.0); Hemoglobin 12.8 g/dl (12.0-16.0); Imm Gran Abs Auto 0.08 X10*3/uL (0.00-0.03); Imm Gran Pct Auto 0.9 % (0.0-0.4); Lymphocytes Absolute Auto 1.6 X10*3/uL (1.2-4.9); Mean Corpuscular HGB Conc 31.8 g/dl (31.0-35.0); Mean Corpuscular Hemoglobin 30.8 pg (27.0-33.0); Mean Corpuscular Volume 96.9 fL (80.0-98.0); NRBC Abs Auto 0.000 X10*3/uL (0.0-0.012); NRBC Pct Auto 0.0 /100WBC (0.0-0.2); Platelet Count 233 X10*3/uL (160-400); Red Blood Count 4.16 X10*6/uL (4.20-5.50); White Blood Count 8.6 X10*3/uL (4.8-10.8)
[2025-06-14 15:25] LABS: Alanine Aminotransferase 23 U/L (0-31); Albumin Level 4.4 g/dL (3.5-5.0); Alkaline Phosphatase 106 U/L (39-117); Anion Gap 16 (12-20); Aspartate Amino Transferase 44 U/L (5-31); Blood Urea Nitrogen 23 mg/dL (9-16); Calcium 9.8 mg/dL (8.4-10.2); Carbon Dioxide 25 mmol/L (22-29); Chloride 106 mmol/L (96-108); Estimated Glomerular Filt Rate 36; Potassium 4.7 mmol/L (3.3-5.1); Sodium 142 mmol/L (135-145); Total Protein 7.0 g/dL (6.5-8.0)
[2025-06-14 15:29] LABS: Parathyroid Hormone Intact 149.4 pg/mL (8.7-77.1)
[2025-06-14 15:31] LABS: Alanine Aminotransferase 24 U/L (0-31); Albumin Level 4.5 g/dL (3.5-5.0); Alkaline Phosphatase 109 U/L (39-117); Anion Gap 14 (12-20); Aspartate Amino Transferase 45 U/L (5-31); Blood Urea Nitrogen 23 mg/dL (9-16); Calcium 9.6 mg/dL (8.4-10.2); Carbon Dioxide 27 mmol/L (22-29); Chloride 106 mmol/L (96-108); Cholesterol 186 mg/dL (<200); Estimated Glomerular Filt Rate 38; HDL Cholesterol 51 mg/dL (>40); Magnesium 2.3 mg/dL (1.6-2.6); Potassium 4.7 mmol/L (3.3-5.1); Sodium 142 mmol/L (135-145); Total Protein 7.0 g/dL (6.5-8.0); Triglycerides 212 mg/dL (<150)
[2025-06-17 21:53] LABS: Calcium, Ionized 5.2 mg/dL (4.7-5.5)
[2025-06-20 06:34] LABS: Vitamin D 25-OH, D2 <4 ng/mL; Vitamin D 25-OH, D3 31 ng/mL; Vitamin D 25-OH, Total 31 ng/mL (30-100)
== END 2025-06-14 11:47 | disposition home or self-care (01) ==
LOC: HO.WFDLDS 11:46
PROVIDERS: Referring Provider Nurse Practitioner Family; Visit Provider Family Medicine
DX: Z00.00 Encounter for general adult medical examination without abnormal findings (principal); I10 Essential (primary) hypertension; E11.40 Type 2 diabetes mellitus with diabetic neuropathy, unspecified; I25.5 Ischemic cardiomyopathy; M47.814 Spondylosis without myelopathy or radiculopathy, thoracic region; N17.9 Acute kidney failure, unspecified; M85.80 Other specified disorders of bone density and structure, unspecified site; E55.9 Vitamin D deficiency, unspecified
CPT/HCPCS: 36415; 80048; 80053; 80061; 81001; 82043; 82306; 82330; 82570; 83735; 83970; 84100; 84443; 85025; 87086

== ENCOUNTER → 2025-07-02 23:59 | Outpatient (BNV) | payer OTHER, SELFPAY | PROVIDERS: PCP Family Medicine; Visit Provider Family Medicine | DX: F33.0 Major depressive disorder, recurrent, mild (principal); E11.40 Type 2 diabetes mellitus with diabetic neuropathy, unspecified; I25.10 Atherosclerotic heart disease of native coronary artery without angina pectoris | CPT/HCPCS: G0179 ==

== ENCOUNTER 2025-07-08 10:34 | Outpatient (AMB) | payer OTHER, SELFPAY ==
--- NOTE | 2025-07-08 10:39 | A.OFFPC_ITS ---
Vital Signs 07/08/25 10:49 Height 5 ft 8 in Weight 224 lb BMI 34.1 BP 110/60 Blood Pressure Location Rt brachial Position Sitting Respiration 12 Pulse 69 Pulse Source Pulse Oximeter Temp 97.9 F Temp Source Oral Pulse Oximetry (%) 95 Oxygen Delivery Method Room Air Intake Visit Reasons: f/u diabetes, HTN Intake Note: patient is scheduled to discuss dm and htn with pcp Play Therapist Required: No Allergies Cephalosporins (CEPHALOSPORINS) Allergy (Intermediate, Verified 06/11/25 11:34) RASH oxycodone (From Tylox) Allergy (Intermediate, Verified 06/11/25 11:34) RASH Sulfa (Sulfonamide Antibiotics) (SULFA (SULFONAMIDE ANTIBIOTICS)) Allergy (Intermediate, Verified 06/11/25 11:34) RASH lisinopril Adverse Reaction (Severe, Verified 06/11/25 11:34) contraindication sulfamethoxazole (From Bactrim) Adverse Reaction (Severe, Verified 06/11/25 11:34) Rash trimethoprim (From Bactrim) Adverse Reaction (Severe, Verified 06/11/25 11:34) Rash naproxen (NAPROXEN) Adverse Reaction (Intermediate, Verified 06/11/25 11:34) contraindication Tobacco use date assessed: 04/17/25 Dental Screening Dental Screen Date: 04/17/25 HPI f/u diabetes, HTN HPI Details 74 y/o female presents to f/u diabetes, HTN. BP today 110/60, 69p. A1c today 6.6%. Pt reports fatigue. She notes she slept well last night but more often than not does not sleep well. Does report mild sleep apnea. HPI Comments History of Present Illness Details Documentation assistance for Monroe García MD, was provided by Jose Wilkins,? Real Time Analyst on 07/08/2025 at 11:21 AM EST. I, Dr. García, have read, observed, and verified documentation. ?? PFS Medical History (Updated 07/08/25 @ 11:20 by Jose Wilkins) Postmenopausal Type II diabetes with terminal operator use of insulin Diabetic neuropathy Anemia Type 2 diabetes mellitus with unspecified complications Atherosclerotic cardiovascular disease Cardiac resynchronization therapy defibrillator (EQUIPMENT OPERATOR/LABORER-D) in place Surgical History History of colonoscopy H/O endoscopy History of implantable cardioverter-defibrillator (ICD) placement (~02/09/17) History of cardiac catheterization (~08/2015) History of umbilical hernia repair History of appendectomy History of cholecystectomy History of tubal ligation Family History Father Myocardial infarction Mother Uterine cancer Lung cancer Maternal Aunt Uterine cancer Mouth cancer Social History Housing: House Patient Tobacco Use Status: Never used Tobacco e-Cigarette/Vaping Use: Never Used Second Hand Smoke Exposure: No service: No Current occupational status: retired Current occupational exposures/hazards: No Cognitive needs: Yes Hearing needs: No Vision needs: Yes Questionnaire Thrive Questionnaire Date Thrive assessed: 11/13/24 I am a: Patient What is your living situation today?: I have a steady place to live Within the past 12 months, did the food you bought not last and you didn't have the money to get more?: Never true Within the past 12 months, did you worry whether your food would run out before you got money to buy more?: Never true Do you have trouble paying for medicines?: No Do you have trouble getting transportation to medical appointments?: No Do you have trouble paying your heating and electricity bill?: No Do you have trouble taking care of your child, family member or friend?: No Do you have trouble with day-to-day activities such as bathing, preparing meals, shopping, managing finances, etc.?: No Are you currently unemployed and looking for a job?: No Are you interested in more education?: No Please select the resources that you would like help with: None Currently or been in a relationship where the following occur: No concerns reported THRIVE Score: 0 DYLON-7 AMB Questionnaire DYLON-7 Date DYLON - 7 assessed: 11/13/24 Source: Developed by Drs. Wicho Tucker, Sana Mendoza, Ta Moctezuma and colleagues, with an educational thai from [employer]. Review of Systems Const Reports fatigue, Denies headache(s) and Denies weakness ENT Denies dizziness and Denies headache(s) Card Denies dyspnea Resp Denies cough, Denies dyspnea, Denies wheezing and Denies other (shortness of breath) Musc Denies numbness and Denies tingling Neuro Denies dizziness, Denies headache(s), Denies numbness, Denies tingling and Denies weakness Psych Denies anxiety and Denies depression Endo Reports fatigue Aller/Immun Denies wheezing Physical exam (Primary Care) Vital Signs: Last Vital Signs Temp 97.9 F 07/08/25 10:49 Pulse 69 07/08/25 10:49 Resp 12 07/08/25 10:49 BP 110/60 07/08/25 10:49 Pulse Ox 95 07/08/25 10:49 Oxygen Delivery Method Room Air 07/08/25 10:49 BMI result Body Mass Index 34.1 Tobacco/Smoking Status: Tobacco use Status Tobacco use date assessed 04/17/25 07/08/25 10:46 Patient Tobacco Use Status Never used Tobacco 07/08/25 10:46 e-Cigarette/Vaping Use Never Used 07/08/25 10:46 Thrive Assessment: Date of Thrive Assessment Date Thrive assessed 11/13/24 07/08/25 10:46 Currently or been in a relationship where the following occur: No concerns reported Const General: well developed; No acute distress Nutritional Appearance: well nourished Orientation/consciousness: patient oriented x3 HENMT Head: Yes normocephalic and Yes atraumatic Eyes General: appearance normal, both eyes and all related structures Pupils: Equal, round and reactive pupils present EOM: EOMs intact bilaterally Resp Effort & Inspection: normal respiratory effort Auscultation: clear to auscultation bilaterally Cardio Rate: regular rate Rhythm: regular rhythm Heart sounds: S1 normal heart sound present, S2 normal heart sound present, no gallops, no murmurs and no rubs Neuro General: patient oriented x3 and gait normal Cranial nerves: Yes Equal, round and reactive pupils present Psych Affect: normal affect Results AMB Hemoglobin A1c AMB Hemoglobin A1c 6.6 % Last Edit by LILIYA Lewis on 07/08/25 10:55 Results Reviewed Results Reviewed: Laboratory Last Values Hgb A1c (Clinic) 6.6 % (4.0-6.0) H 07/08/25 10:54 Coding Level of Care Code Est Pt Level 4 (41508) Diagnoses Hypertension, essential I10 Atherosclerotic cardiovascular disease I25.10 Type 2 diabetes mellitus with diabetic nephropathy, with long-term current use of insulin E11.21; Z79.4 Diabetes mellitus complication detail: with nephropathy Diabetes mellitus complication status: with kidney complications Sleep apnea G47.30 Fatigue R53.83 Assessment & Plan Assessment & Plan (1) Hypertension, essential: Code(s): I10 - Essential (primary) hypertension Category: Medical Plan: Blood pressure is controlled. Goal is less than 130/80 Continue current medications Hydrate well (2) Atherosclerotic cardiovascular disease: Code(s): I25.10 - Atherosclerotic heart disease of beaver coronary artery without angina pectoris Category: Medical Plan: Stable Follow-up with Cardiology as recommended (3) Type II diabetes with terminal operator use of insulin: Code(s): E11.9 - Type 2 diabetes mellitus without complications; Z79.4 - alf (current) use of insulin Category: Medical Qualifiers: Diabetes mellitus complication detail: with nephropathy Diabetes mellitus complication status: with kidney complications Qualified Code(s): E11.21 - Type 2 diabetes mellitus with diabetic nephropathy; Z79.4 - 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 Goal is less than 7% Continue current medication (4) Sleep apnea: Code(s): G47.30 - Sleep apnea, unspecified Category: Medical Plan: Patient notes increasing fatigue. She says she was diagnosed with mild sleep apnea several years ago. Has not had any further evaluation. Referring her back to Sleep Medicine to rule out worsening sleep apnea (5) Fatigue: Code(s): R53.83 - Other fatigue Category: Medical Plan: As above, referred her to Sleep Medicine Also encouraged good hydration and rest. Orders: Orders AMB Hemoglobin A1c Today E11.65 - Type 2 diabetes mellitus with hyperglycemia
[2025-07-08 10:49] VITALS: BP 110/60; PULSE 69; RESP 12; TEMP 36.6; O2SAT 95; BMI 34.1
--- OUTSIDE RECORDS SUMMARY | 2025-07-08 21:48 | XMS_ITS | Data Portability ---
Author Organization [place] [facility] Address [address] [place] [address] Care Team Providers Care Route Sales Person Name Role Phone [facility] OTHER TORY RAMIREZ Primary Care Provider [phone] Assessment Encounter Date Assessment Date Assessment LastModified [...] 2018 019 olga [facility] - Home, [address] [place], [address], 9 17:41:41 BMP + ionized calcium, serum or plasma 2018 019 elsa Spr - Home, [address] [place], [address], 9 15:21:00 Referral None recorded. Procedures None recorded. Surgeries None recorded. Imaging None recorded. Medication Orders potassium chloride ER 10 mEq tablet,ex tended release [address], [address], 9 17:41:41 potassium chloride ER 10 mEq tablet,ex tended release [address], [address], 9 17:41:47 Patient TargetsNo targets recorded. Patient Instructions Encounter Date Encounter Id Patient Instructions Last Modified By Organization Details Last Modified Time 10/04/2018 [id number] leg and ankle edema: care instructions elsa Not available 10/04/2018 17:49:45 Take Torsemide 2 0 mg daily for the next 3 days until you see your PCP. Watch your salt intake. (No added salt and check amount in pood packaging. Thank you for your visit with [facility] today. We cannot always find the exact [...] condition between 8am-10pm, please call [facility] at [phone] to help navigate your care. Not available 10/04/2018 15:09:16 10/22/2018 [id number] viral respirator y infection: care instructions olga Not available 10/22/2018 17:41:41 heart failure: care instructions olga Not available 10/22/2018 17:41:41 Thank you for yo ur [facility]. We cannot always find the exact [...] condition between 8am-10pm, please call [facility] at [phone] to help navigate your care. olga Not available 10/22/2018 17:41:39 Reason for Referral None Reported. Results Created Date Observation Date Name Description Value Unit Range Abnormal Flag Note LastModifiedBy Organization Detail LastModifiedTime 10/23/19 19 10/22/2018 BMP + ioniz ed calci um, serum or plasm a Na 138 mmol/ L 136-14 5 Not Available [facility] - [facility] [address] [place], [address], 10/22/2018 17:32:18 10/23/19 19 10/22/2018 BMP + ioniz ed calci um, serum or plasm a K 3.1 mmol/ L 3.5-5. 1 Not Available Spr - Home [address] [place], [address], 10/22/2018 17:32:18 10/23/19 19 10/22/2018 BMP + ioniz ed calci um, serum or plasm a cL 95 mmol/ L 96-111 Not Available Spr - Home [address] [place], [address], 10/22/2018 17:32:18 10/23/19 19 10/22/2018 BMP + ioniz ed calci um, serum or plasm a ica 1.17 mmol/ L 1.1-1. 4 Not Available Spr - Home [address] [place], [address], 10/22/2018 17:32:18 10/23/19 19 10/22/2018 BMP + ioniz ed calci um, serum or plasm a TCO2 30 mmol/ L 20-30 Not Available [facility] - Home [address] [place], [address], 10/22/2018 17:32:18 10/23/19 19 10/22/2018 BMP + ioniz ed calci um, serum or plasm a glu 77 mg/dL 70-115 Not Available Spr - Home [address] [place], [address], 10/22/2018 17:32:18 10/23/19 19 10/22/2018 BMP + ioniz ed calci um, serum or plasm a BUN 18 mg/dL 6-24 Not Available Spr - Home [address] [place], [address], 10/22/2018 17:32:18 10/23/19 19 10/22/2018 BMP + ioniz ed calci um, serum or plasm a crea 1.1 mg/dL .65-1. 36 Not Available Spr - Home [address] [place], [address], 10/22/2018 17:32:18 10/23/19 19 10/22/2018 BMP + ioniz ed calci um, serum or plasm a HCT 35 %_pcv 40.6-5 0.3 Not Available Spr - Home [address] [place], [address], 10/22/2018 17:32:18 10/23/19 19 10/22/2018 BMP + ioniz ed calci um, serum or plasm a Hb 11.9 g/dL 13.9-1 7.4 Not Available Spr - Home [address] [place], [address], 10/22/2018 17:32:18 10/23/19 19 10/22/2018 BMP + ioniz ed calci um, serum or plasm a angap 17 mmol/ L 6-18 Not Available Spr - Home [address] [place], [address], 10/22/2018 17:32:18 10/21/19 19 10/20/2018 BMP + ioniz ed calci um, serum or plasm a Na 137 mmol/ L 136-14 5 Not Available Spr - Home [address] [place], [address], 10/20/2018 15:18:12 10/21/19 19 10/20/2018 BMP + ioniz ed calci um, serum or plasm a K 4 mmol/ L 3.5-5. 1 Not Available Spr - Home [address] [place], [address], 10/20/2018 15:18:12 10/21/19 19 10/20/2018 BMP + ioniz ed calci um, serum or plasm a cL mmol/ L 96-111 Not Available Spr - Home [address] [place], [address], 10/20/2018 15:18:12 10/21/19 19 10/20/2018 BMP + ioniz ed calci um, serum or plasm a ica mmol/ L 1.1-1. 4 Not Available Spr - Home [address] [place], [address], 10/20/2018 15:18:12 10/21/19 19 10/20/2018 BMP + ioniz ed calci um, serum or plasm a TCO2 mmol/ L 20-30 Not Available Spr - Home [address] [place], [address], 10/20/2018 15:18:12 10/21/19 19 10/20/2018 BMP + ioniz ed calci um, serum or plasm a glu mg/dL 70-115 Not Available Spr - Home [address] [place], [address], 10/20/2018 15:18:12 10/21/19 19 10/20/2018 BMP + ioniz ed calci um, serum or plasm a BUN mg/dL 6-24 Not Available Spr - Home [address] [place], [address], 10/20/2018 15:18:12 10/21/19 19 10/20/2018 BMP + ioniz ed calci um, serum or plasm a crea 1.1 mg/dL .65-1. 36 Not Available Spr - Home [address] [place], [address], 10/20/2018 15:18:12 10/21/1910/20/2018 BMP + ioniz ed calci um, serum or plasm a HCT 29 %_pcv 40.6-5 0.3 Not Available Spr - Home [address] [place], [address], 10/20/2018 15:18:12 10/21/19 19 10/20/2018 BMP + ioniz ed calci um, serum or plasm a Hb 9.9 g/dL 13.9-1 7.4 Not Available Spr - Home [address] [place], [address], 10/20/2018 15:18:12 10/21/19 19 10/20/2018 BMP + ioniz ed calci um, serum or plasm a angap mmol/ L 6-18 Not Available Spr - Home [address], [place], [address], 10/20/2018 15:18:12 Result Notes None recorded. Problems Name Problem SNOMED Code Status Onset Date Resolution Date Notes Provider Name and Address Organization Details Recorded Time Congestive heart failure 39446901 Active 2018 MARK LIZARRAGA NP [address], [place], [address], [place] [facility] 9 17:22:00 Problem Notes None recorded. Procedures Surgical History Date Name Laterality Status Provider Name and Address Organization Details Recorded Time 019 Venipuncture - DH completed MARK LIZARRAGA NP [address], [place], [address], [place] [facility] 10/22/2018 17:35:02 019 Venipuncture - DH completed CEZAR YIN NP [address] [place], [address], [place] [facility] 10/04/2018 17:35:42 repair of umbilical hernia completed CEZAR YIN NP [address], [place], [address], [place] [facility] 10/04/2018 14:44:20 cholecystectomy completed CEZAR YIN NP [address] [place], [address], [place] [facility] 10/04/2018 14:44:31 Appendectomy completed CEZAR YIN NP [address] [place], [address], [place] [facility] 10/04/2018 14:44:40 cardiac pacemaker procedure completed CEZAR YIN NP [address] [place], [address], [place] [facility] 10/04/2018 14:45:06 Imaging Results None recorded. Procedure Notes None recorded. Medical Equipment None Reported. Allergies Allergen ID Allergen Name Allergen Category Reaction Reaction Severity Criticality Documentation Date Start Date Code Code System Note Provider Name and Address Organization Details Recorded Time 75139 Cephalosp arturo (substanc e) medicatio n rash Not available Not available 10/04/2018 36461 7003 SNOMED CEZAR YIN, SYSTEMS TRAINER [address], [place], [address], [place] [facility] 9 14:41:14 73085 naproxen medicatio n Not available Not available Not available 10/04/2018 7258 RxNorm CEZAR YIN, SYSTEMS TRAINER [address] [place], [address], [place] [facility] 9 [...] % 97.9 [degF] 120/56 mm[Hg] Not Available [facility] 9 17:33:55 Social History Question Answer Notes LastModified by Organizat ion Details LastModified Time Tobacco Smoking Status Never Smoker CEZAR YIN NP [address], [place], [address], [place] [facility] 10/04/2018 14:45:21 Do You [...] Not available 14:43:11 Medical History Condition Response Coronary Artery Disease Y COPD Y Depression Y Cancer N Stroke Y High Cholesterol Y Kidney Disease Y Diabetes Y Asthma N Pulmonary Embolism N Hypertension Y Gynecological HistoryNo gynecological history recorded. Obstetrics History GPAL:G 0 P 0 0 0 0 Past Encounters Encounter ID Performer Location Encounter Start Date Encounter Closed Date Diagnosis/Indication Diagnosis SNOMED-CT Code Diagnosis ICD10 Code Diagnosis IMO Codes Diagnosis Note [id number] CEZAR YIN NP [facility] [address] [place] [address] 10/04/2018 14:35:05 10/05/2018 21:51:41 Edema of lower extremity 839550598 R60.0 [id number] MARK LIZARRAGA NP [facility] [address] [place] [address] 10/22/2018 17:19:29 10/24/2018 18:06:36 Congestive heart failure 67231546 I50.9 Viral uppe r respiratory tract infection 147206499 J06.9 Health Concerns Section Related Observation LastModified by Organization Detai ls LastModified Time None Recorded Concern Status LastModified by Organization Details LastModified Time None Recorded Advance Directives Directive Y: Carmine Bojorquez Payers Insurance Date Sequence Insurance Name Policy Number Policy Lambert Covered Member ID Lambetr Member ID Guarantor Name 03/19/2019 1 MEDICARE B-[place]: [facility] [email or web address] Deanna J Laclair [id number] Deanna Laclair 10/04/2018 1 *SELF PAY* Deanna Laclair [id number] Deanna Laclair Notes Date Note Type Note [...] or any rashes. CEZAR YIN NP [address] [place], [address], [place] [facility] 10/20/2018 15:21:04 10/22/2018 text/html Pt was seen [...] denies feeling ill. MARK LIZARRAGA, MADDY [address], [place], [address], [place] [facility] 10/22/2018 17:59:15 OBGyn Episode No OBEpisode recorded.
--- OUTSIDE RECORDS SUMMARY | 2025-07-08 21:48 | XMS_ITS | Data Portability ---
Author Organization [place] - [facility] gladis [place] Address [address] [place] [address] Assessment No assessment recorded. Plan of Treatment Reminders Order Date Submit Date Provider Last Modified By Organization Details Last Modified Time Details Appointments None recorded. Lab colon cancer screening, stool 2018 019 [email or web address] [facility], [address], [place], [address], 9 14:04:[address] referral - hx NSTEMI, has pacemaker -[facility] (Patient wants to be seen in [place]) 2018 019 [email or web address] [facility], [address] [place], [address], 9 08:13:24 Procedures venipunctu re routine (PROC) 2018 019 [email or web address] Not available 9 07:25:47 Surgeries None recorded. Imaging MAMMO, screening, digital, bilateral 2018 019 [email or web address] [facility], [address] [place], [address], 9 14:53:53 Medication Orders torsemide 5 mg tablet 2018 019 [email or web address] 5 [facility], [address] [place], [address], 9 16:51:42 ferrous sulfate 325 mg (65 mg iron) tablet 2018 019 [facility], [address] [place], [address], 9 12:39:12 Lantus Solostar U-100 Insulin 100 unit/mL (3 mL) [facility] centerneo us pen 2018 [facility], [address] [place], [address], 9 12:39:10 Novolog FlexPen U-100 Insulin aspart 100 unit/mL (3 mL) subcunm cancer centerneo 2018 019 [facility] 1974, [address] [place], [address], 9 12:39:12 torsemide 20 mg tablet [address], [address] [place], [address], 9 09:35:32 mirtazapin e 15 mg disintegra ting tablet 2018 [facility] 1974, [address] [place], [address], 9 12:39:12 gabapentin 400 mg capsule 2018 [facility] 1974, [address] [place], [address], 9 12:39:09 Eliquis 5 mg tablet 2018 [facility] 1974, [address] [place], [address], 9 12:57:12 omeprazole 20 mg capsule,de layed release 2018 [facility] 1974, [address] [place], [address], 9 12:39:09 quetiapine 300 mg tablet 2018 019 INTERFACE [facility] 1974, [address] [place], [address], 9 12:39:10 citalopram 20 mg tablet 2018 INTERFACE [facility] 1974, [address] [place], [address], 9 12:39:11 atorvastat in 40 mg tablet 2018 [email or web address] [facility] 1974, [address] [place], [address], 9 18:15:56 Patient TargetsNo targets recorded. Patient Instructions Encounter Date Encounter Id Patient Instructions Last Modified By Organization Details Last Modified Time 01/12/2019 [id number] It was nice meeting you! Labs look [...] concerns! [email or web address] Not available 01/12/2019 15:25:48 01/24/2019 [id number] -Hold the torsemide -Come back and see me Tuesday morning. -We will likely get you on a 24 hour blood pressure monitor when we see you Tuesday. Not available 01/25/2019 15:16:04 01/26/2019 [id number] -Let's restart the torsemide at a low dose. We need to balance your BP and the edema. -BP recheck on Tuesday -We will likely schedule you for a continuous BP monitor next week. -ER if you experience dizziness or SOB. -Call us if you have any questions. Not available 01/26/2019 09:38:26 01/31/2019 [id number] -Continue on current dose of torsemide -Drink plenty of water. -Change position slowly Not available 01/31/2019 16:30:55 Reason for Referral [employer] Coordinator Referral for Co ronary arteriosclerosis hx NSTEMI, has pacemaker -[facility] (Patient wants to be seen in [place]) Referring Physician: Jennifer Lagos, Family Medicine, Encounter [...] if clini brinda indic ated. Test Type: [place] site algor ithmi c cheryl sis of [...] years or older , who are at the medical center for CRC. Colog uard has [...] , singl e point in time) of [place] ge-dc sk adult s aged 50-84 . Colog [...] ution s can be found at [email or web address]. Rx only. Not Available [facility] [address], [place], [address], 01/14/2020 05:59:11 12/22/19 19 12/21/2018 elect rocar diogr am Rate & Rhythm Paced 70's Not Available [address], [address], 12/21/2018 15:59:02 12/22/19 19 12/21/2018 elect rocar diogr am QRS 150 Not Available [address], [address], 12/21/2018 15:59:02 12/22/19 19 12/21/2018 elect rocar diogr am OH Interval 108/12 4 Not Available [address], [address], 12/21/2018 15:59:02 12/22/19 19 12/21/2018 jose smith am QT Interval 458/49 8 Not Available [address], [address], 12/21/2018 15:59:02 01/05/20 19 01/05/2019 CBC w/ auto diff WBC 6.8 x10e3 /uL 3.4-10 .8 Not Available [facility] ([facility]) [address] [place], [address], 01/05/2019 09:12:04 01/05/20 19 01/05/2019 CBC w/ auto diff RBC 4.27 x10e6 /uL 3.77-5 .28 Not Available [facility] ([facility]) [address] [place], [address], 01/05/2019 09:12:04 01/05/20 19 01/05/2019 CBC w/ auto diff hemoglobin 13.0 g/dL 11.1-1 5.9 Not Available [facility] ([facility]) [address] [place], [address], 01/05/2019 09:12:04 01/05/20 19 01/05/2019 CBC w/ auto diff hematocrit 41.0 % 34.0-4 6.6 Not Available [facility] ([facility]) [address] [place], [address], 01/05/2019 09:12:04 01/05/2001/05/2019 CBC w/ auto diff MCV 96 fL 79-97 Not Available [facility] ([facility]) [address] [place], [address], 01/05/2019 09:12:04 01/05/2001/05/2019 CBC w/ auto diff MCH 30.4 pg 26.6-3 3.0 Not Available [facility] ([facility]) [address] [place], [address], 01/05/2019 09:12:04 01/05/2001/05/2019 CBC w/ auto diff MCHC 31.7 g/dL 31.5-3 5.7 Not Available [facility] ([facility]) [address] [facility] [place], [address], 01/05/2019 09:12:04 01/05/2001/05/2019 CBC w/ auto diff RDW 14.6 % 12.3-1 5.4 Not Available [facility] ([facility]) [address] [facility] [place], [address], 01/05/2019 09:12:04 01/05/2001/05/2019 CBC w/ auto diff platelets 166 x10e3 /uL 150-37 9 Eff ectiv e January 08, 2019 the refer ence inter zaid for Plate lets will be watters ing to: 0 - 7 d 140 - 396 x10E3 /uL 8 - 30 d 139 - 531 x10E3 /uL 31 d - 999 yrs 150 - 450 x10E3 /uL Not Available [facility] ([facility]) [address] [facility], [place], [address], 01/05/2019 09:12:04 01/05/2001/05/2019 CBC w/ auto diff neutrophils 63 % not estab. Not Available [facility] ([facility]) [address] [facility] [place], [address], 01/05/2019 09:12:04 01/05/2001/05/2019 CBC w/ auto diff lymphs 24 % not estab. Not Available [facility] ([facility]) [address] [facility] [place], [address], 01/05/2019 09:12:04 01/05/2001/05/2019 CBC w/ auto diff monocytes 6 % not estab. Not Available [facility] ([facility]) [address] [facility] [place], [address], 01/05/2019 09:12:04 01/05/20 19 01/05/2019 CBC w/ auto diff eos 5 % not estab. Not Available [facility] ([facility]) [address] [place], [address], 01/05/2019 09:12:04 01/05/20 19 01/05/2019 CBC w/ auto diff basos 1 % not estab. Not Available [facility] ([facility]) [address] [place], [address], 01/05/2019 09:12:04 01/05/2001/05/2019 CBC w/ auto diff immature cells PHARMACY ASSOCIATE Not Available [facility] ([facility]) [address] [place], [address], 01/05/2019 09:12:04 01/05/2001/05/2019 CBC w/ auto diff neutrophils (absolute) 4.2 x10e3 /uL 1.4-7. 0 Not Available [facility] ([facility]) [address] [place], [address], 01/05/2019 09:12:04 01/05/2001/05/2019 CBC w/ auto diff lymphs (absolute) 1.7 x10e3 /uL 0.7-3. 1 Not Available [facility] ([facility]) [address] [place], [address], 01/05/2019 09:12:04 01/05/2001/05/2019 CBC w/ auto diff monocytes(ab solute) 0.4 x10e3 /uL 0.1-0. 9 Not Available [facility] ([facility]) [address] [place], [address], 01/05/2019 09:12:04 01/05/20 19 01/05/2019 CBC w/ auto diff eos (absolute) 0.4 x10e3 /uL 0.0-0. 4 Not Available [facility] ([facility]) [address] [facility] [place], [address], 01/05/2019 09:12:04 01/05/2001/05/2019 CBC w/ auto diff baso (absolute) 0.1 x10e3 /uL 0.0-0. 2 Not Available [facility] ([facility]) [address] [facility] [place], [address], 01/05/2019 09:12:04 01/05/20 19 01/05/2019 CBC w/ auto diff immature granulocytes 1 % not estab. Not Available [facility] ([facility]) [address] [facility] [place], [address], 01/05/2019 09:12:04 01/05/2001/05/2019 CBC w/ auto diff immature grans (abs) 0.1 x10e3 /uL 0.0-0. 1 Not Available [facility] ([facility]) [address] [place], [address], 01/05/2019 09:12:04 01/05/2001/05/2019 CBC w/ auto diff NRBC PHARMACY ASSOCIATE Not Available [facility] ([facility]) [address] [place], [address], 01/05/2019 09:12:04 01/05/2001/05/2019 CBC w/ auto diff hematology comments: PHARMACY ASSOCIATE Not Available [facility] ([facility]) [address] [place], [address], 01/05/2019 09:12:04 01/05/2001/05/2019 CMP, serum or plasm a glucose 473 mg/dL 65-99 above high normal Not Available [facility] ([facility]) [address] [place], [address], 01/05/2019 09:12:05 01/05/20 19 01/05/2019 CMP, serum or plasm a BUN 24 mg/dL 8-27 Not Available [facility] ([facility]) [address] [place], [address], 01/05/2019 09:12:05 01/05/2001/05/2019 CMP, serum or plasm a creatinine 1.11 mg/dL 0.57-1 .00 above high normal Not Available [facility] ([facility]) [address] [place], [address], 01/05/2019 09:12:05 01/05/20 19 01/05/2019 CMP, serum or plasm a eGFR if nonafricn AM 51 mL/mi n/1.7 3 >59 below low normal Not Available [facility] ([facility]) [address] [place], [address], 01/05/2019 09:12:05 01/05/20 19 01/05/2019 CMP, serum or plasm a eGFR if africn AM 59 mL/mi n/1.7 3 >59 below low normal Not Available [facility] ([facility]) [address] [place], [address], 01/05/2019 09:12:05 01/05/2001/05/2019 CMP, serum or plasm a BUN/creatini ne ratio 22 12-28 Not Available [facility] ([facility]) [address] [facility] [place], [address], 01/05/2019 09:12:05 01/05/2001/05/2019 CMP, serum or plasm a sodium 137 mmol/ L 134-14 4 Not Available [facility] ([facility]) [address] [facility] [place], [address], 01/05/2019 09:12:05 01/05/2001/05/2019 CMP, serum or plasm a potassium 4.7 mmol/ L 3.5-5. 2 Not Available [facility] ([facility]) [address] [facility] [place], [address], 01/05/2019 09:12:05 01/05/2001/05/2019 CMP, serum or plasm a chloride 97 mmol/ L 96-106 Not Available [facility] ([facility]) [address] [facility] [place], [address], 01/05/2019 09:12:05 01/05/20 19 01/05/2019 CMP, serum or plasm a carbon dioxide, total 24 mmol/ L 20-29 Not Available [facility] ([facility]) [address] [facility] [place], [address], 01/05/2019 09:12:05 01/05/2001/05/2019 CMP, serum or plasm a calcium 9.5 mg/dL 8.7-10 .3 Not Available [facility] ([facility]) [address] [place], [address], 01/05/2019 09:12:05 01/05/2001/05/2019 CMP, serum or plasm a protein, total 6.3 g/dL 6.0-8. 5 Not Available [facility] ([facility]) [address] [facility] [place], [address], 01/05/2019 09:12:05 01/05/2001/05/2019 CMP, serum or plasm a albumin 4.1 g/dL 3.6-4. 8 Not Available [facility] ([facility]) [address] [place], [address], 01/05/2019 09:12:05 01/05/2001/05/2019 CMP, serum or plasm a globulin, total 2.2 g/dL 1.5-4. 5 Not Available [facility] ([facility]) [address] [place], [address], 01/05/2019 09:12:05 01/05/2001/05/2019 CMP, serum or plasm a A/G ratio 1.9 1.2-2. 2 Not Available [facility] ([facility] [address] [facility] [place], [address], 01/05/2019 09:12:05 01/05/2001/05/2019 CMP, serum or plasm a bilirubin, total <0.2 mg/dL 0.0-1. 2 Not Available [facility] ([facility]) [address] [facility] [place], [address], 01/05/2019 09:12:05 01/05/20 19 01/05/2019 CMP, serum or plasm a alkaline phosphatase 132 IU/L 39-117 above high normal Not Available [facility] ([facility]) [address] [facility] [place], [address], 01/05/2019 09:12:05 01/05/2001/05/2019 CMP, serum or plasm a AST (SGOT) 16 IU/L 0-40 Not Available [facility] ([facility]) [address] [facility] [place], [address], 01/05/2019 09:12:05 01/05/2001/05/2019 CMP, serum or plasm a ALT (SGPT) 18 IU/L 0-32 Not Available [facility] ([facility]) [address] [facility] [place], [address], 01/05/2019 09:12:05 01/05/20 19 01/05/2019 lipid panel , serum cholesterol, total 195 mg/dL 100-19 9 Not Available [facility] ([facility]) [address] [facility] [place], [address], 01/05/2019 09:12:06 01/05/2001/05/2019 lipid panel , serum triglyceride s 200 mg/dL 0-149 above high normal Not Available [facility] ([facility]) [address] [facility] [place], [address], 01/05/2019 09:12:06 01/05/20 19 01/05/2019 lipid panel , serum HDL cholesterol 58 mg/dL >39 Not Available [facility] ([facility]) [address] [place], [address], 01/05/2019 09:12:06 01/05/2001/05/2019 lipid panel , serum VLDL cholesterol shruthi 40 mg/dL 5-40 Not Available [facility] ([facility]) [address] [place], [address], 01/05/2019 09:12:06 01/05/2001/05/2019 lipid panel , serum LDL cholesterol calc 97 mg/dL 0-99 Not Available [facility] ([facility]) [address] [place], [address], 01/05/2019 09:12:06 01/05/2001/05/2019 lipid panel , serum comment: PHARMACY ASSOCIATE Not Available [facility] ([facility]) [address] [place], [address], 01/05/2019 09:12:06 01/05/2001/05/2019 iron + total iron- yoko ng capac ity (TIBC ), serum iron bind.cap.(TI BC) 296 ug/dL 250-45 0 Not Available [facility] ([facility]) [address] [place], [address], 01/05/2019 09:12:06 01/05/2001/05/2019 iron + total iron- yoko ng capac ity (TIBC ), serum UIBC 244 ug/dL 118-36 9 Not Available [facility] ([facility]) [address] [place], [address], 01/05/2019 09:12:06 01/05/2001/05/2019 iron + total iron- yoko ng capac ity (TIBC ), serum iron 52 ug/dL 27-139 Not Available [facility] ([facility]) [address] [place], [address], 01/05/2019 09:12:06 01/05/20 19 01/05/2019 iron + total iron- yoko ng capac ity (TIBC ), serum iron saturation 18 % 15-55 Not Available [facility] ([facility]) [address] [facility] [place], [address], 01/05/2019 09:12:06 01/05/20 19 01/05/2019 vitam in B12 + folat e, serum or blood vitamin B12 440 pg/mL 232-12 45 Not Available [facility] ([facility]) [address] [place], [address], 01/05/2019 09:12:07 01/05/2001/05/2019 vitam in B12 + folat e, serum or blood folate (folic acid), serum 11.0 NG/mL >3.0 A serum folat e kimmie ntrat ion of less than 3.1 ng/mL is consi dered to repre sent clini shruthi defic iency . Not Available [facility] ([facility]) [address] [facility] [place], [address], 01/05/2019 09:12:07 01/05/2001/05/2019 HbA1c (hemo globi n A1c), blood hemoglobin A1C 11.0 % 4.8-5. 6 above high normal Predi abete s: 5.7 - 6.4 Diabe myke: >6.4 Glyce valentín contr ol for adult s with diabe myke: <7.0 Not Available [facility] ([facility]) [address] [facility] [place], [address], 01/05/2019 09:12:07 01/05/2001/05/2019 keven tin, serum or plasm a ferritin, serum 52 NG/mL 15-150 Not Available [facility] ([facility]) [address] [place], [address], 01/05/2019 09:12:08 03/01/20 19 03/01/2019 XR, chest , 2 view No observ ation record ed. [email or web address] Not Available 2018 17:48:45 03/01/20 19 03/01/2019 CT, chest , w/ contr ast No observ ation record ed. [email or web address] Not Available 2018 12:24:57 03/15/20 19 03/15/2019 XR, chest , 2 view No observ ation record ed. [email or web address] [facility] [address] [facility], [place], [address], 03/16/2019 08:07:13 03/29/20 19 03/29/2019 MAMMO , [...] ardio gram No observ ation record ed. [address] [place], [address], 08/13/2019 14:33:03 08/13/20 19 08/13/2019 [place], echoc ardio gram No observ ation record ed. [address] [place] [place], [address], 08/13/2019 14:32:45 Result Notes None recorded. Problems Name Problem SNOMED Code Status Onset Date Resolution Date Notes Provider Name and Address Organization Details Recorded Time Congestive heart failure 59738736 Active 2018 Alis umana [facility] 9 09:57:57 Coronary arterioscleros is 99065070 Active 2018 Alis umana [facility] 9 09:58:16 Chronic obstructive pulmonary disease 92826847 [facility] 09:58[facility]22 Kidney [facility] 83725574 [facility] 09:58:32 Monitoring of pacemaker 18698301 Active 2018 [facility] 9 09:58:46 Pulmonary embolism 09271418 Active 2018 [facility] 9 09:59:03 Diabetes mellitus 70505315 Active 2018 [facility] 9 10:06:13 Depressive disorder 20293542 Active 2018 [facility] 9 10:15:09 Acute non-ST segment elevation myocardial infarction 025050571 Active 2018 [facility] 9 10:15:28 Harmful pattern of use of opioid 3732349 Active 2018 [facility] 9 10:15:48 Left bundle branch block 33915784 Active 2018 [facility] 9 10:16:12 Hypertensive disorder 31126387 Active 2018 [facility] 9 10:16:19 Gastroesophage al reflux disease 961968337 Active 2018 [facility] 9 10:16:25 Dyslipidemia 932294030 Active 2018 [facility] 9 10:16:37 Anxiety 15372074 Active 2018 [facility] 9 10:16:51 Problem Notes None recorded. Procedures Surgical History Date Name Laterality Status Provider Name and Address Organization Details Recorded Time 05/16/20 19 Venipuncture completed Cassy Maki [facility] 01/04/2019 10:47:25 procedure on gallbladder completed [facility] 12/21/2018 10:00:31 Appendectomy completed [facility] 12/21/2018 10:00:48 cardiac pacemaker procedure completed [facility] 12/21/2018 10:00:57 Tubal Ligation completed [facility] 12/21/2018 10:01:12 Hernia Repair completed [facility] 12/21/2018 10:01:22 Imaging Results None recorded. Procedure Notes None recorded. Medical Equipment None Reported. Allergies Allergen ID Allergen Name Allergen Category Reaction Reaction Severity Criticality Documentation Date Start Date Code Code System Note Provider Name and Address Organization Details Recorded Time 3563 Bactrim medicatio n Not available Not available Not available 12/21/2018 81058 9 RxNorm [facility] 9 09:54:20 3564 Substance with sulfonami de structure and antibacte rial mechanism of action (substanc e) medicatio n Not available Not available Not available 12/21/2018 53866 8003 SNOMED [facility] 9 09:54:26 3565 naproxen medicatio n Not available Not available Not available 12/21/2018 7258 RxNorm [facility] 9 09:54:33 3566 Cephalosp arturo (substanc e) medicatio n Not available Not available Not available 12/21/2018 17704 7003 SNOMED [facility] 9 09:57:41 Medications Name Sig [...] Address Organization Details Last Updated DateTime 9 29972.3 6 g 38.1 kg/m2 160.02 cm 88 /min 98 % 98 % 110/68 mm[Hg] Maribel rodríguez [facility] 9 14:17:58 Date Recorded Body temperature Heart rate Oxygen saturation Oxygen saturation in Arterial blood by Pulse oximetry Systolic And Diastolic Provider Name and Address Organization Details Last Updated DateTime 9 97.7 [degF] 71 /min 93 % 93 % 106/63 mm[Hg] Alis Gutierrez [facility] 9 16:14:49 Date Recorded Body height Body temperature Body mass index (BMI) Body weight Oxygen saturation Oxygen saturation in Arterial blood by Pulse oximetry Heart rate Systolic And Diastolic Provider Name and Address Organization Details Last Updated DateTime 9 160.02 cm 97.5 [degF] 38.3 kg/m2 13483.9 5 g 95 % 95 % 77 /min 121/67 mm[Hg] Alis Gutierrez [facility] 9 09:14:33 Date Recorded Body height Body mass index (BMI) Body weight Body temperature Oxygen saturation Oxygen saturation in Arterial blood by Pulse oximetry Heart rate Systolic And Diastolic Systolic And Diastolic Provider Name and Address Organization Details Last Updated DateTime 9 160.02 cm 39.4 kg/m2 235375. 22 g 97.7 [degF] 97 % 97 % 77 /min 144/73 mm[Hg] 127/78 mm[Hg] Sara Briana [facility] 9 15:37:01 Social History Question Answer Notes LastModified by Decalog Details LastModified Time Tobacco Smoking Status Never Smoker Alis Gutierrez [facility] 12/21/2018 10:00:17 Do You Have An Advance [...] Do You Have A Medical Power Of Life Scientists? No Information not available 12/21/2018 What Was The Date Of Your Most Recent Tobacco Screening? 01/26/2019 Information not available 03/15/2019 Seat Belts Used Routinely Yes Information not available 12/21/2018 Do You Have Smoke And Carbon Monoxide Detectors In Your Home? Yes Information not available 12/21/2018 Sex: Unknown Functional Status Question Answer Note LastModified by Decalog Details LastModified Time What is your exercise [...] conjugate PCV 13 8 completed Jennifer Vincentkal [facility] 01/05/2019 10:22:42 pneumococcal polysaccharide PPV23 2 completed Jennifer Vincentkal [facility] 01/05/2019 10:22:53 pneumococcal, unspecified formulation 6 completed Jennifer Vincentkal [facility] 01/05/2019 10:23:16 [facility] 10:23:30 zoster live 6 completed Jennifer kal [facility] 01/05/2019 10:23:42 Past Encounters Encounter ID Performer Location Encounter Start Date Encounter Closed Date Diagnosis/Indication Diagnosis SNOMED-CT Code Diagnosis ICD10 Code Diagnosis IMO Codes Diagnosis Note [id number] Kaila hylton NP, [address] [address] 12/21/2018 09:49:31 12/21/2018 10:57:22 Iron deficiency anemia 48627554 D50.9 Essential hypertension 59023878 I10 Anxiety 11279783 F41.9 Neuropathy due to diabetes mellitus 330889547 E13.40 Gastroesop hageal reflux disease 878458134 K21.9 Depressive disorder 3548 9007 F32.9 History of pulmonary embolus 168321480 Z86.711 Chest pain 93494356 R07. 9 [id number] Kaila hylton NP, [address] [address] 01/04/2019 08:53:58 01/04/2019 10:14:08 Chronic obstructive pulmonary disease 36576071 J44.9 Congestive heart failure 50667153 I50.9 Coronary arteriosclerosis 64267303 I25.10 Diabetes mellitus 879839 09 E11.9 Kidney disease 79546713 N08 [id number] Jennifer Lagos NP, [facility] [address] [place] [address] 01/12/2019 13:26:52 01/12/2019 15:31:02 Type 2 diabetes mellitus 60557410 E11.37X1 Coronary arteriosclerosis 70417456 I25.10 Anxiety 58601000 F41.9 Essential hypertension 35458025 I10 Neuropathy due to diabetes mellitus 070477717 E11.40 Hyperlipidemia 77722989 E78.5 Gastroesop hageal reflux disease 809091234 K21.9 History of pulmonary embolus 610384989 Z86.711 Depressive disorder 3548 9007 F32.9 Screening for malignant neoplasm of breast 099042764 Z12.31 Iron deficiency 91187847 E61.1 Screening for malignant neoplasm of colon 183272566 Z12.11 [id number] Kaila hylton NP, [address] [address] 01/24/2019 16:04:33 01/24/2019 16:34:04 Essential hypertension 81658096 I10 [id number] Kaila hylton NP, [address] [address] 01/26/2019 09:06:37 01/26/2019 09:33:21 Hypertensive disorder 56048831 I10 [id number] Kaila hylton NP, [address] [address] 01/31/2019 15:27:37 01/31/2019 15:45:19 Health Concerns Section Related Observation LastModified by Organization Detai ls LastModified Time None Recorded Concern Status LastModified by Organization Details LastModified Time None Recorded Advance Directives Directive N: Payers Insurance Date Sequence Insurance Name Policy Number Policy Lambert Covered Member ID Lambert Member ID Guarantor Name 03/26/2019 1 MEDICARE [place]: [employer] Deanna Chacon [id number] Deanna Chacon Notes Date Note Type Note Provider Name and Address Organization Details Recorded Time 01/04/2019 text/html Patient is here for her labs to be drawn per orders of her provider. Cassy Maki lyndsay, [facility] 01/04/2019 10:51:07 01/12/2019 text/html Deanna is here today to establish care. She recently moved here from [place], [place] 1. DMII: This is treated with [...] years ago. Most recently seeing cardiology in [place]. 6. Anxiety/Depression : controlled with citalopram. 7. COPD: never been on inhalers, denies SOB, cough or wheezing. 8. Chronic kidney disease: does not recall ever having an ultrasound of kidneys. Current GFR 51. 7. Due for mammogram, due for colon cancer screening. States she had bone density testing over 10 years ago. Jennifer umana, [facility] 01/14/2019 15:05:09 01/24/2019 text/html Pt comes [...] no weakness or neurological deficits. Lianna umana, [facility] 01/25/2019 15:17:26 01/26/2019 text/html Pt has [...] has been discussed with PCP. Lianna umana [facility] 01/26/2019 09:38:55 01/31/2019 text/html Blood pressure has improved. Light headedness/dizzine ss has improved. She still feels tired but her fatigue level is improved from previous. She is tolerating dose of torsemide well. Lianna umana [facility] 01/31/2019 16:31:20 OBGyn Episode No OBEpisode recorded.
--- OUTSIDE RECORDS SUMMARY | 2025-07-08 21:48 | XMS_ITS | Data Portability ---
Author Organization [place] [facility], Allergy Address [address] [place] [address] Care Team Providers Care Manager Actuarial Name Role Phone SYLVAIN KLEIN Primary Care [...] recorded. Medication Orders clotrimaz ole 10 mg luara 2023 024 [facility] [place], [place] - [phone], [address] [facility], [place], [address], 02/29/2024 15:18:10 Patient TargetsNo targets recorded. Patient InstructionsNo instructions recorded. Reason for Referral None Reported. Results Created Date Observation Date Name Description Value Unit Range Abnormal Flag Note LastModifiedBy Organization Detail LastModifiedTime 02/01/20 24 audio gram No observ ation record ed. BARCODE Not Available 2023 11:43:07 03/01/20 24 audio gram No observ ation record ed. [email or web address] Not Available 02/19 10:50:14 03/20/20 25 audio gram No observ ation record ed. BARCODE Not Available 2024 13:17:00 Result Notes None recorded. Problems Name Problem SNOMED Code Status Onset Date Resolution Date Notes Provider Name and Address Organization Details Recorded Time Bilateral tinnitus 5846294445352 Active 2023 GREGORY DEAN PA-C [address] [facility] [address], [place], [address], [place] [facility] 5 12:36:14 Lesion of oral mucosa 1839120790989 106 Active 2023 JAMES ANDUJAR MD [address] [facility] [address], [facility] [place], [address], [facility] - [facility] 4 14:08:19 Sensorineur al hearing loss of bilateral ears 176284527 Active 2023 DAVE OBANDO [address], [place], [address], [facility] - [facility] 4 14:32:45 Xerostomia 28960944 Active 2023 JAMES ANDUJAR MD [address] [facility] [address], [place], [address], [facility] - [facility] 4 14:42:34 Impacted cerumen of bilateral ears 8053365566439 108 Active 2024 GREGORY DEAN PA-C [address], [place], [address], [facility] - [facility] 5 12:33:03 Problem Notes None recorded. Procedures Surgical History Date Name Laterality Status Provider Name and Address Organization Details Recorded Time 03/20/20 25 Cerumen removal without microscope bilat completed GREGORY DEAN PA-C [address], [address], [facility] 03/20/2025 12:32:54 03/20/20 25 Air & Speech Audio with Tymps - 87366, 31929 & 85776 completed CODI MEADE, [address], [address], [facility] 03/20/2025 11:32:03 02/29/20 24 Tympanometry - 30983 completed CANDACE BEVERLY [address], [address], [facility] 02/29/2024 14:26:37 01/23/20 24 Comp Audio with Tymps - 83399 & 38462 completed CODI MEADE, [address], [address], [facility] 01/23/2024 14:32:34 ligation of fallopian tube completed JAMES Keyes MD [address] [place] [address], [phone] [place] [address] [facility] 01/23/2024 14:00:02 Cholecystectomy completed JAMES Keyes MD [address] [place] [address], [address], [facility] - [facility] 01/23/2024 14:00:11 Imaging Results None recorded. Procedure Notes None recorded. Medical Equipment None Reported. Allergies Allergen ID Allergen Name Allergen Category Reaction Reaction Severity Criticality Documentation Date Start Date Code Code System Note Provider Name and Address Organization Details Recorded Time 472024 Bactrim medicatio n Not available Not available Not available 01/23/2024 28402 9 RxNorm Vlad umana [facility] 13:14:12 941923 Substance with sulfonami de structure and antibacte rial mechanism of action (substanc e) medicatio n Not available Not available Not available 01/23/2024 65984 8003 SNOMED Vlad umana [place] [facility] 4 13:14:20 052006 lisinopri l medicatio n Not available Not available Not available 01/23/2024 54887 RxNorm Vlad umana [place] [facility] 4 13:14:34 516043 Dexedrine medicatio n Not available Not available Not available 01/23/2024 11335 2 RxNorm Vlad umana, [place] [facility] 4 13:14:53 Medications Name Sig Start [...] Available No t Available FreeStyle Danica 3 [place] As directed for use with sensors active [...] Updated DateTime 01/23/2024 160.02 cm 38.3 kg/m2 30236.95 g Vlad Garcia [place] [facility] 01/23/2024 13:13:43 Date Recorded Body height Body mass index (BMI) Body weight Provider Name and Address Organization Details Last Updated DateTime 02/29/2024 160.02 cm 39 kg/m2 70433.32 g Vlad Garcia [facility] 02/29/2024 14:31:01 Date Recorded Body height Body mass index (BMI) Body weight Provider Name and Address Organization Details Last Updated DateTime 03/20/2025 160.02 cm 38.1 kg/m2 95206.36 g Shakira Beck [place] [facility] 03/20/2025 11:38:49 Social History None recorded. [...] Note [id number] JAMES UGALDE MD [facility] [address] [address] 01/23/2024 12:22:19 01/23/2024 14:53:50 Bilateral tinnitus 3744331418 102 H93.13 Audio reviewed. Suggest observatio n white noise for masking discussed. Mild asymmetry but bilateral sx. Suggest f/u audio in 6 months Lesion of oral mucosa 10 10662019 666608 K13.70 White exudate of the uvula. Differenti al diagnosis includes oral thrush versus leukoplaki a. Suggest trial of clotrimazo le lozenges, more fluids and follow-up in 3 to 4 weeks for discussion of possible biopsy Sensorineu ral hearing loss of bilateral ears 550059522 H90.3 Audiologic al evaluation results: Right ear: Normal sloping to a moderate sensorineu ral hearing loss with excellent word recognitio n. Left ear: Normal sloping to severe sensorineu ral hearing loss with excellent word recognitio n. Tympanomet ry: Right Ear:Type As Left Ear:Type As 7301 JAMES UGALDE MD [facility] [address] [address] 02/29/2024 13:58:19 02/29/2024 14:57:00 Sensorineural hearing loss of bilateral ears 331082920 H90.3 SRt remains stable from last visit a month ago. Tympanomet ry:Right Ear:Type AsLeft Ear:Type As Lesion of oral mucosa 10 44447406 051474 K13.70 White exudate of the uvula appears to have resolved. I suspect this was due to oral thrush. There is no lesion to biopsy. Suggest sugar-free sour candies and increasing water intake to combat the dry oral mucosa. Likely secondary to anticholin ergic effects of her medication s Xerostomia 08332859 K11. 7 [id number] GREGORY DEAN PA-C [facility] [address] [address] 03/20/2025 10:45:25 03/20/2025 12:56:50 Sensorineural hearing loss of bilateral ears 974046475 H90.3 Audiologic al evaluation results: Right ear: Normal sloping to moderately severe sensorineu ral hearing loss with excellent word recognitio n. Left ear: Normal sloping to profound sensorineu ral hearing loss with excellent word recognitio n. Tympanomet ry: Right Ear:Type As Left Ear:Type As Impacted c erumen of bilateral ears 5557984191 907160 H61.23 410472 Bilateral tinnitus 65889 08558 102 H93.13 057846 Health Concerns Section Related Observation LastModified by Organization Detai ls LastModified Time None Recorded Concern Status LastModified by Organization Details LastModified Time None Recorded Advance Directives Directive None Recorded Payers Insurance Date Sequence Insurance Name Policy Number Policy Lambert Covered Member ID Lambert Member ID Guarantor Name 03/20/2025 1 [facility] - DOS ON OR AFTER 2022 - MEDICARE ADVANTAGE [place] (MEDICARE REPLACEMENT/ADV ANTAGE - PPO) Deanna Cottonir [id number] Deanna Cottonir 05/13/2025 1 [facility] - DOS ON OR AFTER 2022 - LONG TERM OPTIONS AND ONE CARE (MEDICARE REPLACEMENT/ADV ANTAGE - PPO) Deanna Cottonir [id number] Deanna Chacon Notes Date Note Type Note Provider Name and Address Organization Details Recorded Time 01/23/2024 text/html Patient seen for an opinion regarding 1 year of bilateral tinnitus. She also notes all irritation of the roof of her mouth for about a 6 months. Twice a no history of steroid inhalers. No vertigo or HL JAMES SOLIS MD [address] [facility],[address], [address], [place] [facility] 01/23/2024 14:46:02 02/29/2024 text/html Patient seen in follow-up for throat irritation and hearing difficulty. Feels that her throat is still dry but much improved. She was treated with clotrimazole. No other interval change in her history. JAMES SOLIS MD [address] [facility],[place] [address], [place], [address], [place] [facility] 02/29/2024 14:42:45 03/20/2025 text/html ROS as noted in the HPI 74yo female presents for evaluation of the ears and hearing loss. She reports stable hearing loss and tinnitus. Denies ear pain, drainage, or dizziness. She is not interested in a hearing aid consult. JAMES SOLIS MD [address] [facility],[address], [address], [place] [facility] 03/20/2025 16:33:30 OBGyn Episode No OBEpisode recorded.
== END 2025-07-08 11:28 | disposition home or self-care (01) ==
LOC: HO.HMCFM 10:35
PROVIDERS: PCP Family Medicine; Visit Provider Family Medicine
DX: I10 Essential (primary) hypertension (principal); I25.10 Atherosclerotic heart disease of native coronary artery without angina pectoris; E11.21 Type 2 diabetes mellitus with diabetic nephropathy; Z79.4 Long term (current) use of insulin; G47.30 Sleep apnea, unspecified; R53.83 Other fatigue; E11.65 Type 2 diabetes mellitus with hyperglycemia

== ENCOUNTER → 2025-07-08 10:34 | Outpatient (BNVA) | payer OTHER, SELFPAY | PROVIDERS: PCP Family Medicine; Visit Provider Family Medicine | DX: I10 Essential (primary) hypertension (principal); R53.83 Other fatigue; G47.30 Sleep apnea, unspecified; I25.10 Atherosclerotic heart disease of native coronary artery without angina pectoris; E11.21 Type 2 diabetes mellitus with diabetic nephropathy; Z79.4 Long term (current) use of insulin | CPT/HCPCS: 83036; 99212 ==

== ENCOUNTER 2025-07-09 12:53 | Outpatient (AMB) | payer OTHER, SELFPAY ==
--- NOTE | 2025-07-09 13:03 | A.OFFVIS_ITS ---
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 Allergies Cephalosporins (CEPHALOSPORINS) Allergy (Intermediate, Verified 06/11/25 11:34) RASH oxycodone (From Tylox) Allergy (Intermediate, Verified 06/11/25 11:34) RASH Sulfa (Sulfonamide Antibiotics) (SULFA (SULFONAMIDE ANTIBIOTICS)) Allergy (Intermediate, Verified 06/11/25 11:34) RASH lisinopril Adverse Reaction (Severe, Verified 06/11/25 11:34) contraindication sulfamethoxazole (From Bactrim) Adverse Reaction (Severe, Verified 06/11/25 11:34) Rash trimethoprim (From Bactrim) Adverse Reaction (Severe, Verified 06/11/25 11:34) Rash naproxen (NAPROXEN) Adverse Reaction (Intermediate, Verified 06/11/25 11:34) contraindication HPI Comprehensive Diabetes Asmnt Most Recent Diabetes Results: 2 Microalb/Creat Ratio TNP 06/14/25 Cholesterol, (<200) 186 mg/dL 06/14/25 HDL Cholesterol, (>40) 51 mg/dL 06/14/25 Triglycerides, (<150) 212 mg/dL H 06/14/25 Creatinine, (0.5-1.4) 1.36 mg/dL 06/14/25 BUN, (9-16) 23 mg/dL H 06/14/25 Sodium, (135-145) 142 mmol/L 06/14/25 Potassium, (3.3-5.1) 4.7 mmol/L 06/14/25 Chloride, (96-108) 106 mmol/L 06/14/25 Carbon Dioxide, (22-29) 27 mmol/L 06/14/25 Calcium, (8.4-10.2) 9.6 mg/dL 06/14/25 AST, (5-31) 45 U/L H 06/14/25 ALT, (0-31) 24 U/L 06/14/25 Total Protein, (6.5-8.0) 7.0 g/dL 06/14/25 Albumin, (3.5-5.0) 4.5 g/dL 06/14/25 [facility] Medical History (Updated 07/08/25 @ 11:20 by Jose Wilkins) Postmenopausal Type II diabetes with superintendent terminal use of insulin Diabetic neuropathy Anemia Type 2 diabetes mellitus with unspecified complications Atherosclerotic cardiovascular disease Cardiac resynchronization therapy defibrillator ([employer] A[employer]LYST-D) in place Surgical History History of colonoscopy H/O endoscopy History of implantable cardioverter-defibrillator (ICD) placement (~02/09/17) History of cardiac catheterization (~08/2015) History of umbilical hernia repair History of appendectomy History of cholecystectomy History of tubal ligation Family History Father Myocardial infarction Mother Uterine cancer Lung cancer Maternal Aunt Uterine cancer Mouth cancer Social History Housing: House Patient Tobacco Use Status: Never used Tobacco e-Cigarette/Vaping Use: Never Used Second Hand Smoke Exposure: No service: No Current occupational status: retired Current occupational exposures/hazards: No Cognitive needs: Yes Hearing needs: No Vision needs: Yes Assessment & Plan Assessment & Plan (1) Diabetes type 2, uncontrolled: Code(s): E11.65 - Type 2 diabetes mellitus with hyperglycemia Plan: Diabetes self-management education and support participation record Assessment/scale: 1= needs instructed? 2= needs review? 3= comprehend keep point? 4= demonstrates understanding/ competent? NC= Not Covered Topics Learning Objective: Initial visit Initial or post srvc Initial or post srvc Initial or post srvc Initial or post srvc Initial or post srvc Post srvc Comments Pre Edu-assessment/plan Outcome or reassess O utcome or reassess Outcome or reassess Outcome or reassess Outcome or reassess Outcome or reassess Diabetes pathophysiology 1 3 Healthy eating 1 3 Being active 1 Taking medication 1 3 Monitoring glucose 1 3 Acute complication 1 3 Chronic complicated 1 3 Lifestyle and healthy coping 1 3 Diabetes distress in support 1 3 ?Diabetes pathophysiology: ?Defined diabetes med identify own type of diabetes; list 3 options for treating diabetes Healthy eating: ?Described effect of type, amount and ?timing of food on blood glucose; list 3 methods for planning meal Being active: ?State effect of exercise on blood glucose level Taking medication: ?State effect of diabetes medications on diabetes; name diabetes medications taking, action and side effects Monitoring glucose: ?Identify recommended blood glucose targets and personal target Acute complication: ?List symptoms and treatment of hyper and hypoglycemia, DKA, sick day guidelines and guidelines for severe weather or situations of crisis and diabetes supply manage Chronic complication: ?To find the relationship of blood glucose levels to long- term complications of diabetes in screening and preventative measures Lifestyle and healthy coping: ?Described lifestyle and healthy coping strategies to rule out diabetes self-management Diabetes to stress and support: ?Recognize Diabetes to stress and be able to identified support options Learning objectives: Learning objectives: The patient was provided with verbal and written education on the following topics as outlined below. Patient's last A1c on 07/08/2025 6.6% The patient met all learning objectives and was able to verbalize understanding and provide teach back of education topics discussed . The patient was provided with the opportunity to ask questions and all questions were answered. Patient Assessment Assess patient education level/literacy/barriers Discussed the following: Foot problems most often happen when there is nerve damage, also called neuropathy. This can cause tingling, pain (burning or stinging), or weakness in the foot. It can also cause loss of feeling in the foot, so you can injure it and not know it. Poor blood flow or changes in the shape of your feet or toes may also cause problems. Take good care of your feet. Check them daily, and see your doctor right away if you see any signs of foot problems. Do not go barefoot, indoors or outdoors. Exercise Medical clearance Effect of exercise on blood sugar Start slowly and gradually increase pace/duration over time Goal amount of exercise Checking blood glucose/have a source of carbs with you Diabetes Complications: ?Nephropathy :Kidney Disease ?diabetes can damage the kidneys, which is not only can cause them to fail but can make them lose their ability to filter waste from the blood? ?Retinopathy: Eye complications ?Retinopathy? is the commonest long-term complication of diabetes. It is leading cause of blindness Besides, Retinopathy- People with diabetes? are also prone to cataract and Glaucoma. ?Neuropathy: Nerve damage -It involves temporary or permanent damage to nerve tissue. Nerve tissue gets injured mainly due to decreased blood flow and rise in blood glucose levels. This damage can lead to pain , or loss of sensation it can also include sexual dysfunction in both men and women ? Infections poor healing: People with diabetes? have increased susceptibility to various infections, such as? pneumonias, pyelonephritis, carbuncles and diabetic ulcers. This may be due to poor blood supply, reduced cellular immunity or hyperglycemia. ?Heart Disease And Stroke: People with diabetes are four times more prone to develop Heart disease than those who do not have diabetes ?Depression: Feeling down once in awhile is normal, but some people feel sadness that just won't go away. Life for them seems hopeless. Feeling this way most of the day for two weeks or more is a sign of serious depression ?Gum Disease: People get gum disease when plaque destroys the gums and bone around the teeth. People with diabetes can get gum disease from having high blood glucose levels for a long time Lifestyle * Work * Travel * Stress management * Problem solving Know your goals * A1C * Blood sugar targets * Blood pressure * Cholesterol/LDL Urine microalbumin Smart Goal Assessment: Patient will treat episodes of hypoglycemia with rule of 15s Pt met goal 100% Patient reports she keeps candy at her bedside, and in her purse to treat hypoglycemia Educational Materials: The patient was provided with the following written educational materials: ADCES 7 Healthy Behaviors Reducing Risks handout Patient Response to instructions: Comprehension of Instructions: Readiness to make changes: action How confident they feel about making changes: Letter of completion of diabetes Education program will be sent to referring provider Portions of this note were created using voice recognition software, please excuse any words or phrases that may have been misinterpreted. Patient Instructions: Include regular daily activity. ADA recommends 30 minutes of exercise 5 days a week. Weight loss talk to PCP or Bilingual Research Interviewer before starting new plan. Test blood sugar as directed; Fasting and 2hpp largest meal. Watch trends in results. Utilize results and to assess how food, physical activity and medications affect blood sugar results. Bring glucometer or CGM to next visit. Be knowledgeable about diabetes medication, its action, side effects, efficacy, toxicity, prescribed dosage, appropriate timing and frequency of administration, effect of missed and delayed doses and instructions for storage, travel and safety. Problem solving techniques to monitor hypo/hyperglycemia episodes and treatments. Reduce risk reduction behaviors, smoking cessation, regular eye, foot and dental examinations. Coding Level of Care Code Est Pt Level 1 (77418) Diagnoses Diabetes type 2, uncontrolled E11.65
== END 2025-07-09 13:57 | disposition home or self-care (01) ==
LOC: HO.ENCR 12:54
PROVIDERS: PCP Family Medicine; Visit Provider Registered Nurse Diabetes Educator
DX: E11.65 Type 2 diabetes mellitus with hyperglycemia (principal)

== ENCOUNTER → 2025-07-09 12:53 | Outpatient (BNVA) | payer OTHER, SELFPAY | PROVIDERS: PCP Family Medicine; Visit Provider Registered Nurse Diabetes Educator | DX: E11.65 Type 2 diabetes mellitus with hyperglycemia (principal) | CPT/HCPCS: 99211 ==